=== PATIENT | male | born 1955 | race Caucasian/White ===

== ENCOUNTER 2017-08-22 09:33 | Emergency (ER) | payer MEDICARE, SELFPAY ==
[2017-08-22 09:39] VITALS: BP 170/103; PULSE 90; RESP 18; TEMP 36.5; O2SAT 95; BMI 34.4
--- NOTE | 2017-08-22 10:04 | DI.RAD.S_ITS ---
PROCEDURE: XR RIBS LT MIN 3V W CXR1V INDICATIONS: fall with rib pain TECHNIQUE: 2 views of the left ribs were acquired, along with a single view chest. COMPARISON: Chest 08/05/2017 FINDINGS: Surgical changes and devices: Left-sided port with tip overlying the distal SVC. Surgical plate lower cervical spine. Left humeral prosthesis. Possible aVR. Bones and chest wall: Subadjacent to a BB skin marker are slightly displaced fractures of the left sixth and seventh anterior ribs. No suspicious bony lesions. Overlying soft tissues appear unremarkable. Lungs and pleura: No pleural effusions or pneumothorax. There is an area of linear density at the right base that is unchanged, likely pulmonary scar. Horizontal atelectasis is present at the left base laterally. Mediastinum: Mediastinal contours appear normal. Heart size is normal. IMPRESSION: 1. Fractures left sixth and seventh anterior ribs. Underlying atelectasis. No pneumothorax. 2. Remote postoperative changes. 3. Probable pulmonary scar right lower lobe. Dictated by: Moi Hoffman M.D. on 08/22/2017 at 10:25 Approved by: Moi Hoffman M.D. on 08/22/2017 at 10:31
[2017-08-22] MEDS: HYDROMORPHONE 0.5 MG INJ 1 MG IV (11:08)
--- NOTE | 2017-08-22 11:20 | ED_ITS ---
HPI - Fall General Chief Complaint: Fall Stated Complaint: pt states i think i have a broken rib Time Seen by Provider: 08/22/17 09:44 Source: patient Mode of arrival: ambulatory Limitations: no limitations History of Present Illness HPI Narrative: Patient presents to the emergency department today with a chief complaint of ongoing left anterior chest pain after mechanical fall suffered on Tuesday when he tripped over his dog on wet grass. He denies any head, neck or back pain. He denies any shortness of breath or hemoptysis. He has had no nausea, vomiting or diarrhea MD complaint: fall Onset (ago): day(s) Fall from: standing Fall witnessed: no Place fall occurred: home Prolonged down time: no Symptoms prior to fall: none Related Data Home Medications Medication Instructions Recorded Confirmed fluticasone-vilanterol [Breo 1 puff INH QDAY #0 12/03/16 Ellipta] tamsulosin [Flomax] 0.4 mg PO QDAY #0 12/03/16 calcipotriene [Dovonex] 1 gm TOPICAL PRN #0 02/04/17 montelukast [Singulair] 10 mg PO HS #0 02/04/17 08/22/17 pregabalin [Lyrica] 225 mg PO BID #0 03/23/17 08/22/17 ipratropium-albuterol [Combivent 2 puff INH SEE INSTRUCTIONS #0 04/15/17 Respimat] albuterol sulfate 1.25 mg INH Q4HP PRN #0 05/24/17 08/22/17 bupropion HCl 300 mg PO QNOON 08/22/17 08/22/17 clopidogrel [Plavix] 75 mg PO QNOON 08/22/17 08/22/17 duloxetine [Cymbalta] 60 mg PO QNOON 08/22/17 08/22/17 eszopiclone [Lunesta] 3 mg PO QHS 08/22/17 08/22/17 fluticasone-vilanterol [Breo 1 puff INHALATION QDAY 08/22/17 08/22/17 Ellipta] lamotrigine [Lamictal XR Starter 200 mg PO QHS 08/22/17 08/22/17 (Green)] omeprazole 40 mg PO QNOON 08/22/17 08/22/17 Previous Rx's Medication Instructions Recorded cyanocobalamin (vitamin B-12) 1,000 mcg SQ QMONTH #30 vial 12/18/12 liothyronine [Cytomel] 12.5 mcg PO Q DAY #45 tab 09/20/16 albuterol sulfate [Ventolin HFA] 0 INH SEE INSTRUCTIONS #18 gm 01/03/17 atorvastatin [Lipitor] 10 mg PO HS #90 tab 01/31/17 prochlorperazine maleate 10 mg PO QIDP PRN #120 tab 02/04/17 aspirin 81 mg PO AMCC #30 tab 04/18/17 clonazepam 2 mg PO BID PRN #56 tab 05/06/17 metoprolol tartrate 25 mg PO Q12H #180 tab 05/30/17 sumatriptan [Imitrex] 20 mg INTRANASAL SEE INSTRUCTIONS 06/15/17 #90 dose sumatriptan succinate 6 mg SQ PRN PRN #10 ea 07/13/17 levothyroxine 0.1 mg PO QAM #90 tab 08/01/17 hydrocodone-acetaminophen 1 tab PO Q4-6H PRN #14 tab 08/22/17 Allergies Allergy/AdvReac Type Severity Reaction Status Date / Time doxycycline [DOXYCYCLINE] Allergy Mild ITCHING Verified 08/22/17 09:42 ketorolac [KETOROLAC] Allergy Unknown Verified 08/22/17 09:42 NSAIDS (Non-Steroidal AdvReac Unknown TO AVOID Verified 08/22/17 09:42 Anti-Inflamma R/T [NSAIDS (NON-STEROIDAL GASTRIC ANTI-INFLAMMA] BYPASS Review of Systems Review of Systems All systems reviewed & are unremarkable except as noted in HPI and below Constitutional Denies chills, Denies fever(s), Denies lethargy and Denies weakness ENT Ears, Nose, Mouth, and Throat: Denies change in voice, Denies neck pain and Denies sore throat Cardiovascular Denies chest pain, Denies irregular heart rhythm, Denies lightheadedness, Denies palpitations and Denies orthopnea Respiratory Reports pain on inspiration and Reports pain with cough Gastrointestinal Gastrointestinal: Denies abdominal pain, Denies change in bowel habits, Denies diarrhea, Denies nausea and Denies vomiting Musculoskeletal Denies neck pain Neurologic Denies weakness Endocrine Denies palpitations Exam Narrative Exam Narrative: Pleasant 62-year-old male in obvious distress, clutching his left anterior chest in pain Const General: cooperative and well developed Nutritional Appearance: well nourished Orientation: alert, awake, oriented x3 and not confused [facility] Head: normocephalic and atraumatic Ears: external ears normal and TM's normal bilaterally Nose: external nose normal and No nasal discharge Face and sinus: sinuses nontender, face symmetric, no sinus tenderness and No dry mucous membranes Mouth: oral mucosae normal and moist mucous membranes Teeth and gingiva: dentition normal Throat: tonsils normal and uvula midline Eyes General: appearance normal, both eyes and all related structures Eyelids: eyelids normal Conjunctivae: conjunctivae normal Sclera: sclerae normal Pupils: PERRL EOM: EOM intact bilaterally Neck Neck: normal visual inspection, trachea midline, No lymphadenopathy, No midline deformity and No JVD Lymphatic: No lymphedema Chest Chest: localized rib tenderness with anteroposterior compression Resp Effort & Inspection: normal respiratory effort, able to speak in complete sentences, no respiratory distress and no use of accessory muscles Auscultation: clear to auscultation bilaterally, no rales, no rhonchi and no wheezes Cardio Rate: regular rate Rhythm: regular rhythm Heart Sounds: no click, no gallops, no murmurs and no rubs Pulses: normal peripheral pulses PFSH Surgical History History of gastric bypass MDM - Fall Imaging Data Chest x-ray: Attestation: I personally reviewed and interpreted this imaging study as follows: My impression: 6th/7th rib fracture Radiologist's impression: PROCEDURE: XR RIBS LT MIN 3V W CXR1V INDICATIONS: fall with rib pain TECHNIQUE: 2 views of the left ribs were acquired, along with a single view chest. COMPARISON: Chest 08/05/2017 FINDINGS: Surgical changes and devices: Left-sided port with tip overlying the distal SVC. Surgical plate lower cervical spine. Left humeral prosthesis. Possible aVR. Bones and chest wall: Subadjacent to a BB skin marker are slightly displaced fractures of the left sixth and seventh anterior ribs. No suspicious bony lesions. Overlying soft tissues appear unremarkable. Lungs and pleura: No pleural effusions or pneumothorax. There is an area of linear density at the right base that is unchanged, likely pulmonary scar. Horizontal atelectasis is present at the left base laterally. Mediastinum: Mediastinal contours appear normal. Heart size is normal. IMPRESSION: 1. Fractures left sixth and seventh anterior ribs. Underlying atelectasis. No pneumothorax. 2. Remote postoperative changes. 3. Probable pulmonary scar right lower lobe. Dictated by: Moi Hoffman M.D. on 08/22/2017 at 10:25 Approved by: Moi Hoffman M.D. on 08/22/2017 at 10:31 Course Orders Ordered: ED Orders 08/22/17 10:04 XR ribs LT min 3V w CXR1V Stat Discontinued Medications Hydromorphone HCl (Dilaudid) 1 mg SUBCUT NOW PRN PRN Reason: Severe Pain Hydromorphone HCl (Dilaudid) 1 mg IV NOW ONE Stop: 08/22/17 11:01 Last Admin: 08/22/17 11:08 Dose: 1 mg Hydromorphone HCl (Dilaudid) 1 mg IV NOW ONE Stop: 08/22/17 11:16 Last Admin: 08/22/17 11:09 Dose: Last Vital Signs Temp 97.7 F 08/22/17 09:39 Pulse 90 08/22/17 09:39 Resp 18 08/22/17 09:39 BP 170/103 H 08/22/17 09:39 Pulse Ox 95 08/22/17 09:39 Discharge Plan Departure Patient Disposition: Home, Self-Care Clinical Impression: Fracture, ribs Instructions: DI for Rib Fracture Activity Restrictions/Additional Instructions: You have been prescribed narcotic medications. While on these medications you cannot drive or operate heavy machinery. Additionally you cannot sign legal documents or perform any duties such as this. 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 Please understand that we cannot provide further refills of narcotics or controlled substances through the ED and your pain management will need to be through your Primary Care Provider Prescriptions: New hydrocodone-acetaminophen 5-325 mg tablet 1 tab PO Q4-6H PRN (Reason: pain) Qty: 14 RF: 0 No Action cyanocobalamin (vitamin B-12) 1,000 MCG/1 ML solution 1,000 mcg SQ QMONTH Qty: 30 RF: 3 liothyronine [Cytomel] 25 MCG tablet 12.5 mcg PO Q DAY Qty: 45 RF: 3 tamsulosin [Flomax] 0.4 MG capsule,extended release 24hr 0.4 mg PO QDAY Qty: 0 RF: 0 fluticasone-vilanterol [Breo Ellipta] 200 MCG/25 MCG blister with device 1 puff INH QDAY Qty: 0 RF: 0 albuterol sulfate [Ventolin HFA] 90 MCG/PUFF HFA aerosol inhaler INH SEE INSTRUCTIONS Qty: 18 RF: 11 atorvastatin [Lipitor] 10 MG tablet 10 mg PO HS Qty: 90 RF: 3 montelukast [Singulair] 10 MG tablet 10 mg PO HS Qty: 0 RF: 0 calcipotriene [Dovonex] 0.005 % cream 1 gm Topical PRN (Reason: unknown) Qty: 0 RF: 0 prochlorperazine maleate 10 MG tablet 10 mg PO QIDP PRNQty: 120 RF: 0 pregabalin [Lyrica] 225 MG capsule 225 mg PO BID Qty: 0 RF: 0 ipratropium-albuterol [Combivent Respimat] 4 GM mist 2 puff INH SEE INSTRUCTIONS Qty: 0 RF: 0 aspirin 81 MG tablet,delayed release (DR/EC) 81 mg PO AMCC Qty: 30 RF: 0 clonazepam 2 MG tablet 2 mg PO BID PRNQty: 56 RF: 1 albuterol sulfate 1.25 MG/3 ML solution for nebulization 1.25 mg INH Q4HP PRN (Reason: Shortness Of Breath) Qty: 0 RF: 0 metoprolol tartrate 25 MG tablet 25 mg PO Q12H Qty: 180 RF: 3 sumatriptan [Imitrex] 20 MG spray,non-aerosol 20 mg Intranasal SEE INSTRUCTIONS Qty: 90 RF: 3 sumatriptan succinate 6 MG/0.5 ML pen injector 6 mg SQ PRN PRNQty: 10 RF: 3 levothyroxine 100 MCG tablet 0.1 mg PO QAM Qty: 90 RF: 3 clopidogrel [Plavix] 75 MG tablet 75 mg PO QNOON RF: 0 omeprazole 40 MG capsule,delayed release(DR/EC) 40 mg PO QNOON RF: 0 bupropion HCl 300 MG tablet extended release 24 hr 300 mg PO QNOON RF: 0 duloxetine [Cymbalta] 60 MG capsule,delayed release(DR/EC) 60 mg PO QNOON RF: 0 eszopiclone [Lunesta] 3 MG tablet 3 mg PO QHS RF: 0 lamotrigine [Lamictal XR Starter (Green)] 200 MG tablet extended rel,dose pack 200 mg PO QHS RF: 0 fluticasone-vilanterol [Breo Ellipta] 200-25 mcg/dose blister with device 1 puff Inhalation QDAY RF: 0
[2017-08-22 11:27] VITALS: BP 141/90; PULSE 90; RESP 18; O2SAT 97
== END 2017-08-22 11:28 | disposition home or self-care (01) ==
PROVIDERS: Emergency Provider Emergency Medicine; Family Provider Family Medicine; PCP Family Medicine
DX: S22.42XA Multiple fractures of ribs, left side, initial encounter for closed fracture (principal); W19.XXXA Unspecified fall, initial encounter
CPT/HCPCS: 71101; 96372; 96374; 99282; 99284; J1170

== ENCOUNTER → 2017-10-06 15:35 | Outpatient (CLI) | payer MEDICARE, SELFPAY ==
[2017-10-06 15:58] LABS: Add Manual Diff / Slide Review NO; Basophils Percent Auto 0.9 % (0-2); Eosinophils Percent Auto 1.1 % (2-4); Hematocrit 43.7 % (41-53); Hemoglobin 14.8 g/dL (13.5-17.5); Lymphocytes Percent Auto 24.7 % (25-40); Mean Corpuscular HGB Conc 33.9 % (30-36); Mean Corpuscular Hemoglobin 30.9 PG (26-34); Mean Corpuscular Volume 91.3 fL (80-100); Monocytes Percent Auto 9.4 % (3-14); Neutrophils Absolute Auto 3000 /uL (3000-5900); Neutrophils Percent Auto 63.9 % (50-75); Platelet Count 171 X10^3/uL (150-400); Red Blood Cell Count 4.79 X10^6/uL (4.5-5.9); Red Cell Distribution Width 13.9 % (11.6-14.8); White Blood Cell Count 4.7 X10^3/uL (4.5-11.0)
[2017-10-06 16:37] LABS: Alanine Aminotransferase 33 IU/L (21-72); Albumin 3.6 g/dL (3.5-5.0); Albumin Globulin Ratio 1.6 (1.0-2.8); Alkaline Phosphatase 81 U/L (38-126); Aspartate Aminotransferase 35 IU/L (17-59); BUN Creatinine Ratio 25.7 (6-22); Bilirubin Total 0.4 mg/dL (0.2-1.3); Blood Urea Nitrogen 18 mg/dL (9-20); Carbon Dioxide 29 mmol/L (22-32); Chloride 102 mmol/L (98-107); Estimated Glomerular Filt Rate > 60.0 mL/min (>60); Globulin 2.3 g/dL (1.7-4.1); Glucose 113 mg/dL (80-110); HEMOLYSIS 27 (0-50); Potassium 3.9 mmol/L (3.4-5.1); Sodium 140 mmol/L (137-145); Total Protein 5.9 g/dL (6.3-8.2)
[2017-10-06 16:52] LABS: Free T3, Triiodothyronine Free 3.75 pg/mL (2.77-5.27); Free T4, Direct Thyroxine 0.97 ng/dL (0.78-2.19)
== END ==
PROVIDERS: Visit Provider Internal Medicine
DX: G89.4 Chronic pain syndrome (principal); M54.5 Low back pain; G89.29 Other chronic pain; E03.9 Hypothyroidism, unspecified; I48.0 Paroxysmal atrial fibrillation
CPT/HCPCS: 36415; 80053; 84439; 84443; 84481; 85025

== ENCOUNTER 2017-10-22 11:58 | Emergency (ER) | payer MEDICARE, SELFPAY ==
[2017-10-22 12:45] VITALS: BP 165/92; PULSE 96; RESP 20; TEMP 36.7; O2SAT 98
--- NOTE | 2017-10-22 12:51 | ED.TRAUMA ---
HPI - Trauma <Nataly Dyson PA-C - Last Filed: 10/22/17 21:33> General Chief Complaint: Extremity Injury, Upper Stated Complaint: STATES CRACKED RIBS Time Seen by Provider: 10/22/17 12:50 Source: patient Mode of arrival: ambulatory Limitations: no limitations History of Present Illness HPI narrative: This 62-year-old male states that he bumped his left side on the corner of a wall 2 days ago. He states his arm was in at his side and thinks that pushed into his left side ribs where he has had fractures before. He has had gradually worsening rib pain since then. Hurts more with pressure, moving his left arm, cough or deep breath. He does not have new pain in the arm or shoulder. Patient reports that he is currently off all opioids and is anticipating back surgery next week. He initially was going to try oral medication and lidocaine patch, however was concerned that his insurance would not cover this, so requested injection to help with pain. Related Data Home Medications Medication Instructions Recorded Confirmed fluticasone-vilanterol [Breo 1 puff INH QDAY #0 12/03/16 10/06/17 Ellipta] tamsulosin [Flomax] 0.4 mg PO QDAY #0 12/03/16 10/06/17 calcipotriene [Dovonex] 1 gm TOPICAL PRN PRN #0 02/04/17 10/06/17 montelukast [Singulair] 10 mg PO HS #0 02/04/17 10/06/17 pregabalin [Lyrica] 225 mg PO BID #0 03/23/17 10/06/17 ipratropium-albuterol [Combivent 2 puff INH SEE INSTRUCTIONS #0 04/15/17 10/06/17 Respimat] albuterol sulfate 1.25 mg INH Q4HP PRN #0 05/24/17 10/06/17 albuterol sulfate [Ventolin HFA] 1 puff INH SEE INSTRUCTIONS 08/22/17 10/06/17 bupropion HCl 300 mg PO QNOON 08/22/17 10/06/17 clopidogrel [Plavix] 75 mg PO QNOON 08/22/17 10/06/17 duloxetine [Cymbalta] 60 mg PO QNOON 08/22/17 10/06/17 eszopiclone [Lunesta] 3 mg PO QHS 08/22/17 10/06/17 fluticasone-vilanterol [Breo 1 puff INHALATION QDAY 08/22/17 10/06/17 Ellipta] lamotrigine [Lamictal XR Starter 200 mg PO QHS 08/22/17 10/06/17 (Green)] prochlorperazine maleate 10 mg PO QIDP PRN 08/22/17 08/29/17 Previous Rx's Medication Instructions Recorded cyanocobalamin (vitamin B-12) 1,000 mcg SQ QMONTH #30 vial 12/18/12 atorvastatin [Lipitor] 10 mg PO HS #90 tab 01/31/17 aspirin 81 mg PO AMCC #30 tab 04/18/17 metoprolol tartrate 25 mg PO Q12H #180 tab 05/30/17 sumatriptan [Imitrex] 20 mg INTRANASAL SEE INSTRUCTIONS 06/15/17 #90 dose sumatriptan succinate 6 mg SQ PRN PRN #10 ea 07/13/17 levothyroxine 0.1 mg PO QAM #90 tab 08/01/17 hydrocodone-acetaminophen 1 tab PO Q4-6H PRN #14 tab 08/22/17 clonazepam 2 mg tablet 2 mg PO BID PRN #56 tab 08/23/17 hydrocodone 10 mg-acetaminophen 1 tab PO Q6H #20 tab 08/29/17 325 mg tablet liothyronine 25 mcg tablet 12.5 mcg PO Q DAY #45 tab 10/04/17 omeprazole 40 mg capsule,delayed 40 mg PO DAILY #90 cap 10/04/17 release lidocaine [Lidoderm] 3 patch TOP DAILY #15 each 10/22/17 oxycodone-acetaminophen [Endocet] 1 tab PO Q6H PRN #7 tab 10/22/17 Allergies Allergy/AdvReac Type Severity Reaction Status Date / Time doxycycline [DOXYCYCLINE] Allergy Mild ITCHING Verified 10/06/17 14:46 ketorolac [KETOROLAC] Allergy Unknown Verified 10/06/17 14:46 NSAIDS (Non-Steroidal AdvReac Unknown TO AVOID Verified 10/06/17 14:46 Anti-Inflamma R/T [NSAIDS (NON-STEROIDAL GASTRIC ANTI-INFLAMMA] BYPASS Review of Systems <Nataly Dyson PA-C - Last Filed: 10/22/17 21:33> Review of Systems All systems reviewed & are unremarkable except as noted in HPI and below Exam <Nataly Dyson PA-C - Last Filed: 10/22/17 21:33> Narrative Exam Narrative: GENERAL APPEARANCE: Patient sitting comfortably, in no distress. NECK/THYROID: Neck supple LUNGS: Clear to auscultation bilaterally, slight splinting. CHEST: TTP over L. mid anteriorlateral ribs, no TTP elsewhere. No eccymoses or abrasions HEART: Regular rate and rhythm without murmur, normal S1, S2, no S3 or S4. EXTREMITIES: No cyanosis or edema. No calf tenderness MS: No TTP over the L. shoulder or UE, able to abducted and rotate the shoulder with slightly reduced AROM Initial Vital Signs Initial Vital Signs: Vital Signs Temperature 98.1 F 10/22/17 12:45 Pulse Rate 96 H 10/22/17 12:45 Respiratory Rate 20 10/22/17 12:45 Blood Pressure 165/92 H 10/22/17 12:45 Pulse Oximetry 98 10/22/17 12:45 <Cali Todd DO - Last Filed: 10/23/17 07:25> Initial Vital Signs Initial Vital Signs: Vital Signs Temperature 98.1 F 10/22/17 12:45 Pulse Rate 96 H 10/22/17 12:45 Respiratory Rate 20 10/22/17 12:45 Blood Pressure 165/92 H 10/22/17 12:45 Pulse Oximetry 98 10/22/17 12:45 Course <Nataly Dyson PA-C - Last Filed: 10/22/17 21:33> Additional Information: Patient was feeling significantly improved at the time of discharge. Reviewed x-ray findings of old 6 than 7th rib fracture, indeterminate 5th rib fracture. I did give him a small amount of Endocet to have for the weekend also advised to use lidocaine patches. He is not having any dyspnea Orders Ordered: Discontinued Medications Hydromorphone HCl (Dilaudid) 2 mg SUBCUT NOW ONE Stop: 10/22/17 14:16 Last Admin: 10/22/17 14:28 Dose: Hydromorphone HCl (Dilaudid) 2 mg SUBCUT NOW ONE Stop: 10/22/17 14:27 Last Admin: 10/22/17 14:28 Dose: 2 mg Lidocaine (Lidoderm) 2 each TOP NOW ONE Stop: 10/22/17 13:24 Last Admin: 10/22/17 14:25 Dose: Not Given Oxycodone HCl ([place]) 10 mg PO NOW ONE Stop: 10/22/17 13:24 Last Admin: 10/22/17 14:25 Dose: Not Given Vital Signs - 8 hr 10/22/17 14:55 Pulse Rate 84 Respiratory Rate 16 Blood Pressure [Left Arm] 146/97 H Pulse Oximetry 96 <Cali Todd DO - Last Filed: 10/23/17 07:25> Orders Ordered: Discontinued Medications Hydromorphone HCl (Dilaudid) 2 mg SUBCUT NOW ONE Stop: 10/22/17 14:16 Last Admin: 10/22/17 14:28 Dose: Hydromorphone HCl (Dilaudid) 2 mg SUBCUT NOW ONE Stop: 10/22/17 14:27 Last Admin: 10/22/17 14:28 Dose: 2 mg Lidocaine (Lidoderm) 2 each TOP NOW ONE Stop: 10/22/17 13:24 Last Admin: 10/22/17 14:25 Dose: Not Given Oxycodone HCl (Percolone) 10 mg PO NOW ONE Stop: 10/22/17 13:24 Last Admin: 10/22/17 14:25 Dose: Not Given Vital Signs - 8 hr 10/22/17 14:55 Pulse Rate 84 Respiratory Rate 16 Blood Pressure [Left Arm] 146/97 H Pulse Oximetry 96 Discharge Plan Departure Patient Disposition: Home, Self-Care Clinical Impression: Left rib fracture Discharge Date/Time: 10/22/17 15:51 Interventions: ED Discharge Assessment Last Done: 10/22/17 15:47 Instructions: DI for Rib Fracture Activity Restrictions/Additional Instructions: It is not clear on your x-ray today whether you have a new fracture or the 5th rib, or if you have just contused old fractures that you had a long those ribs. You can take the prescription pain medicine as needed, but do not drive and remember it can make you sleepy. Please try the lidocaine patches, up to 3 at a time along the sore ribs to help with pain. If your insurance does not cover the prescription, you can get [id number] 4% lidocaine med patches made by multiple manufactures which are very similar. You should return if you have acutely worsening pain or new symptoms such as trouble breathing. Follow up with your PCP if you feel like you need to continue on pain medication Prescriptions: New oxycodone-acetaminophen [Endocet] 10-325 mg tablet 1 tab PO Q6H PRN (Reason: pain in ribs) Qty: 7 RF: 0 lidocaine [Lidoderm] 5 % adhesive patch,medicated 3 patch TOP DAILY Qty: 15 RF: 0 No Action cyanocobalamin (vitamin B-12) 1,000 MCG/1 ML solution 1,000 mcg SQ QMONTH Qty: 30 RF: 3 tamsulosin [Flomax] 0.4 MG capsule,extended release 24hr 0.4 mg PO QDAY Qty: 0 RF: 0 fluticasone-vilanterol [Breo Ellipta] 200 MCG/25 MCG blister with device 1 puff INH QDAY Qty: 0 RF: 0 atorvastatin [Lipitor] 10 MG tablet 10 mg PO HS Qty: 90 RF: 3 montelukast [Singulair] 10 MG tablet 10 mg PO HS Qty: 0 RF: 0 calcipotriene [Dovonex] 0.005 % cream 1 gm Topical PRN PRN (Reason: unknown) Qty: 0 RF: 0 pregabalin [Lyrica] 225 MG capsule 225 mg PO BID Qty: 0 RF: 0 ipratropium-albuterol [Combivent Respimat] 4 GM mist 2 puff INH SEE INSTRUCTIONS Qty: 0 RF: 0 aspirin 81 MG tablet,delayed release (DR/EC) 81 mg PO AMCC Qty: 30 RF: 0 albuterol sulfate 1.25 MG/3 ML solution for nebulization 1.25 mg INH Q4HP PRN (Reason: Shortness Of Breath) Qty: 0 RF: 0 metoprolol tartrate 25 MG tablet 25 mg PO Q12H Qty: 180 RF: 3 sumatriptan [Imitrex] 20 MG spray,non-aerosol 20 mg Intranasal SEE INSTRUCTIONS Qty: 90 RF: 3 sumatriptan succinate 6 MG/0.5 ML pen injector 6 mg SQ PRN PRNQty: 10 RF: 3 levothyroxine 100 MCG tablet 0.1 mg PO QAM Qty: 90 RF: 3 clonazepam 2 mg tablet 2 mg PO BID PRN (Reason: anxiety) Qty: 56 RF: 1 omeprazole 40 mg capsule,delayed release(DR/EC) 40 mg PO DAILY Qty: 90 RF: 0 liothyronine [Cytomel] 25 mcg tablet 12.5 mcg PO Q DAY Qty: 45 RF: 0 hydrocodone-acetaminophen [[place]] 10-325 mg tablet 1 tab PO Q6H Qty: 20 RF: 0 hydrocodone-acetaminophen 5-325 mg tablet 1 tab PO Q4-6H PRN (Reason: pain) Qty: 14 RF: 0 clopidogrel [Plavix] 75 MG tablet 75 mg PO QNOON RF: 0 bupropion HCl 300 MG tablet extended release 24 hr 300 mg PO QNOON RF: 0 duloxetine [Cymbalta] 60 MG capsule,delayed release(DR/EC) 60 mg PO QNOON RF: 0 eszopiclone [Lunesta] 3 MG tablet 3 mg PO QHS RF: 0 lamotrigine [Lamictal XR Starter (Green)] 200 MG tablet extended rel,dose pack 200 mg PO QHS RF: 0 fluticasone-vilanterol [Breo Ellipta] 200-25 mcg/dose blister with device 1 puff Inhalation QDAY RF: 0 albuterol sulfate [Ventolin HFA] 90 MCG/PUFF HFA aerosol inhaler 1 puff INH SEE INSTRUCTIONS RF: 0 prochlorperazine maleate 10 MG tablet 10 mg PO QIDP PRN (Reason: Nausea) RF: 0 Referrals: Eleazar Armstrong MD [Primary Care Provider] - <Cali Todd DO - Last Filed: 10/23/17 07:25> Cosign ED Attending Freda Attestation: I was available for consultation during this patient's emergency department encounter
--- NOTE | 2017-10-22 12:55 | DI.RAD.S_ITS ---
PROCEDURE: XR RIBS LT MIN 3V W CXR1V INDICATIONS: hx fx rib, now bumped chest 2.5 days ago/ pain TECHNIQUE: 2 views of the left ribs were acquired, along with a single view chest. COMPARISON: [facility], CR, XR RIBS LT MIN 3V W CXR1V, 08/22/2017, 9:44. FINDINGS: Surgical changes and devices: Left chest port with the tip projecting in the lower SVC. There is a left shoulder arthroplasty. Bones and chest wall: Left fifth, sixth and seventh rib fractures are seen. The left sixth and seventh rib fractures were visualized on prior study. Lungs and pleura: No pleural effusions or pneumothorax. Lungs appear clear. Mediastinum: Mediastinal contours appear normal. Heart size is normal. IMPRESSION: Redemonstration of left sixth and seventh rib fractures. Left fifth rib fracture is technically age-indeterminate and could be acute or subacute; recommend clinical correlation. Dictated by: Earnest Ferrari M.D. on 10/22/2017 at 13:36 Approved by: Earnest Ferrari M.D. on 10/22/2017 at 13:40
--- NOTE | 2017-10-22 13:26 | PC.NURSE ---
Pt had fractured ribs on left side 3.5 mos ago. He states this has resolved, but he fell against wall with his left arm breaking the impact and he has sudden onset of pain in the left rib area again. Pain with deep inspiration and movement. Denies any other symptoms. Denies chest pain or shortness of breath.
[2017-10-22] MEDS: HYDROMORPHONE 1 MG INJ 2 MG SUBCUT (14:28)
[2017-10-22 14:55] VITALS: BP 146/97; PULSE 84; RESP 16; O2SAT 96
== END 2017-10-22 15:51 | disposition home or self-care (01) ==
PROVIDERS: Emergency Provider Internal Medicine; Family Provider Internal Medicine; PCP Internal Medicine
DX: S22.32XA Fracture of one rib, left side, initial encounter for closed fracture (principal); W22.01XA Walked into wall, initial encounter
CPT/HCPCS: 71101; 96372; 99282; 99283; J1170

== ENCOUNTER 2017-12-12 14:24 | Emergency (ER) | payer MEDICARE, SELFPAY ==
[2017-12-12 14:29] VITALS: BP 142/88; PULSE 91; RESP 14; TEMP 36.6; O2SAT 97; BMI 36.0
--- NOTE | 2017-12-12 15:11 | ED.FALL ---
HPI - Fall <Nataly Dyson PA-C - Last Filed: 12/12/17 18:07> General Chief Complaint: Fall Stated Complaint: left hand laceration from a fall Time Seen by Provider: 12/12/17 14:37 Source: patient Mode of arrival: ambulatory Limitations: physical limitation History of Present Illness HPI Narrative: This 62-year-old male states that he tripped and fell on carpet at home and landed on his left elbow and upper arm. He states that he now has pain and reduced mobility in his left shoulder. 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 He states that he has pain in that shoulder with any pressure or injury to his elbow. He states that he cut his left hand, he believes on the edge of the dresser. He states that he maybe bumped his head a little bit on the carpet after he came down on the left side, but denies any LOC, denies any neck pain. No new weakness, paresthesia or other new complaints. He states that he falls frequently at home and is undergoing workup for various problems. He had initially been offered shoulder x-rays and declined these, thinking that he would need large doses of pain medication 1st (requested accessing his port to get ?2 mg of Dilaudid?), but does think that this is a low risk injury and that this is the same type of pain he has had in the past with hitting his elbow. Related Data Home Medications Medication Instructions Recorded Confirmed fluticasone-vilanterol [Breo 1 puff INH QDAY #0 12/03/16 11/14/17 Ellipta] tamsulosin [Flomax] 0.4 mg PO QDAY #0 12/03/16 11/14/17 calcipotriene [Dovonex] 1 gm TOPICAL PRN PRN #0 02/04/17 11/14/17 montelukast [Singulair] 10 mg PO HS #0 02/04/17 11/14/17 ipratropium-albuterol [Combivent 2 puff INH SEE INSTRUCTIONS #0 04/15/17 11/14/17 Respimat] albuterol sulfate 1.25 mg INH Q4HP PRN #0 05/24/17 11/14/17 albuterol sulfate [Ventolin HFA] 1 puff INH SEE INSTRUCTIONS 08/22/17 11/14/17 clopidogrel [Plavix] 75 mg PO QNOON 08/22/17 11/14/17 fluticasone-vilanterol [Breo 1 puff INHALATION QDAY 08/22/17 11/14/17 Ellipta] lamotrigine [Lamictal XR Starter 200 mg PO QHS 08/22/17 11/14/17 (Green)] Previous Rx's Medication Instructions Recorded cyanocobalamin (vitamin B-12) 1,000 mcg SQ QMONTH #30 vial 12/18/12 aspirin 81 mg PO AMCC #30 tab 04/18/17 metoprolol tartrate 25 mg PO Q12H #180 tab 05/30/17 sumatriptan [Imitrex] 20 mg INTRANASAL SEE INSTRUCTIONS 06/15/17 #90 dose sumatriptan succinate 6 mg SQ PRN PRN #10 ea 07/13/17 levothyroxine 0.1 mg PO QAM #90 tab 08/01/17 liothyronine 25 mcg tablet 12.5 mcg PO Q DAY #45 tab 10/04/17 omeprazole 40 mg capsule,delayed 40 mg PO DAILY #90 cap 10/04/17 release lidocaine [Lidoderm] 3 patch TOP DAILY #15 each 10/22/17 duloxetine 60 mg capsule,delayed 60 mg PO QNOON #90 cap 10/31/17 release cyclobenzaprine 10 mg tablet 10 mg PO TID PRN #30 tab 11/09/17 eszopiclone 3 mg tablet 3 mg PO QHS 90 Days #90 tab 11/09/17 bupropion HCl XL 300 mg 24 hr 300 mg PO ONCE #90 tab 11/18/17 tablet, extended release clonazepam 2 mg tablet 2 mg PO .COMPLEX 30 Days #225 tab 11/21/17 atorvastatin 10 mg tablet 10 mg PO HS #90 tab 12/07/17 prochlorperazine maleate 10 mg 10 mg PO Q6H PRN #120 tab 12/13/17 tablet Allergies Allergy/AdvReac Type Severity Reaction Status Date / Time doxycycline [DOXYCYCLINE] Allergy Mild ITCHING Verified 12/12/17 14:32 ketorolac [KETOROLAC] Allergy Unknown Verified 12/12/17 14:32 NSAIDS (Non-Steroidal AdvReac Unknown TO AVOID Verified 12/12/17 14:32 Anti-Inflamma R/T [NSAIDS (NON-STEROIDAL GASTRIC ANTI-INFLAMMA] BYPASS Review of Systems <Nataly Dyson PA-C - Last Filed: 12/12/17 18:07> Review of Systems All systems reviewed & are unremarkable except as noted in HPI and below Exam <Nataly Dyson PA-C - Last Filed: 12/12/17 18:07> Narrative Exam Narrative: GENERAL APPEARANCE: Patient resting comfortably, in no distress. LUNGS: Clear to auscultation bilaterally. HEART: Rate and rhythm regular without murmur, normal S1 and S2, no S3 or S4. EXTREMITIES: Upper extremities no cyanosis or edema DERMATOLOGIC: Ecchymoses in various stages of healing on the trunk and the extremities. Left palm there is a 3.5 cm partial avulsion laceration that is partly adhered on both sides. Distal portion is deeper, 3-4 mm, subcu fat visible but not protruding. More proximal portion is 1 mm deep. Skin appears viable. Skin in the center of the avulsions is 4mm diameter NEUROVASCULAR: Left upper extremity sensation is grossly intact, hand is warm and pink with brisk cap refill MUSCULOSKELETAL: He has a little bit of tenderness over the lateral shoulder and lateral caudal border of the left humerus, no tenderness elsewhere over the shoulder, abduction and range of motion of the left shoulder are limited. Normal range of motion of the elbow and wrist. [employer] strength in the left hand 5/5 Initial Vital Signs Initial Vital Signs: Vital Signs Temperature 97.8 F 12/12/17 14:29 Pulse Rate 91 H 12/12/17 14:29 Respiratory Rate 14 12/12/17 14:29 Blood Pressure 142/88 H 12/12/17 14:29 Pulse Oximetry 97 12/12/17 14:29 <Lyubov Beavers DO - Last Filed: 12/15/17 12:35> Initial Vital Signs Initial Vital Signs: Vital Signs Temperature 97.8 F 12/12/17 14:29 Pulse Rate 91 H 12/12/17 14:29 Respiratory Rate 14 12/12/17 14:29 Blood Pressure 142/88 H 12/12/17 14:29 Pulse Oximetry 97 12/12/17 14:29 Course <Nataly Dyson PA-C - Last Filed: 12/12/17 18:07> Additional Information: Patient's wound was not amenable to suturing due to parallel linear partial avulsions with viable skin in between (explained we would have had to remove the viable skin to be able to suture properly). This was closed with Steri-Strips, covered with Gelfoam and a bulky dressing. We did not give any IV or injectable medications but did give his usual dose of oxycodone while here and he had considerable improvement in his shoulder pain and range of motion. He agreed to return if any acutely worsening symptoms. He did not feel that x-rays were needed given this was a low risk fall onto carpet. He will follow up with his PCP Orders Ordered: Discontinued Medications Acetaminophen (Tylenol) 650 mg PO NOW ONE Stop: 12/12/17 15:56 Last Admin: 12/12/17 15:57 Dose: 650 mg Lidocaine (Lidoderm) 1 each TOP NOW ONE Stop: 12/12/17 15:29 Last Admin: 12/12/17 15:36 Dose: 1 each Lidocaine (Lidoderm) 1 each TOP NOW ONE Stop: 12/12/17 16:51 Last Admin: 12/12/17 16:59 Dose: 1 each Oxycodone HCl (Percolone) 20 mg PO NOW ONE Stop: 12/12/17 15:29 Last Admin: 12/12/17 15:56 Dose: 20 mg Vital Signs - 8 hr 12/12/17 14:29 12/12/17 16:53 Temperature 97.8 F 98.5 F Pulse Rate 91 H 80 Respiratory Rate 14 17 Blood Pressure 142/88 H Blood Pressure [Left Arm] 122/78 Pulse Oximetry 97 93 <Lyubov Beavers, DO - Last Filed: 12/15/17 12:35> Orders Ordered: Discontinued Medications Acetaminophen (Tylenol) 650 mg PO NOW ONE Stop: 12/12/17 15:56 Last Admin: 12/12/17 15:57 Dose: 650 mg Lidocaine (Lidoderm) 1 each TOP NOW ONE Stop: 12/12/17 15:29 Last Admin: 12/12/17 15:36 Dose: 1 each Lidocaine (Lidoderm) 1 each TOP NOW ONE Stop: 12/12/17 16:51 Last Admin: 12/12/17 16:59 Dose: 1 each Oxycodone HCl (Percolone) 20 mg PO NOW ONE Stop: 12/12/17 15:29 Last Admin: 12/12/17 15:56 Dose: 20 mg Vital Signs - 8 hr 12/12/17 14:29 12/12/17 16:53 Temperature 97.8 F 98.5 F Pulse Rate 91 H 80 Respiratory Rate 14 17 Blood Pressure 142/88 H Blood Pressure [Left Arm] 122/78 Pulse Oximetry 97 93 Discharge Plan Departure Patient Disposition: Home Clinical Impression: Contusion of left shoulder or upper extremity, Avulsion of skin of hand Discharge Date/Time: 12/12/17 17:04 Interventions: ED Discharge Assessment Last Done: 12/12/17 17:03 Instructions: DI for Avulsion Laceration (Not Requiring Sutures) Activity Restrictions/Additional Instructions: Since you are feeling better it is okay to return home and monitor. Continue using your Lidoderm patches. We were not able to suture your hand today due to the skin being partly torn or avulsed in 2 places, but the skin in the middle of that looking okay, so we have tapes this and applied pressure dressing. Please leave this on for the next 24-48 hours and leave the tape strips on until they fall off. Please keep a bandage on this to avoid re-injuring it or causing more bleeding. Monitor for signs of infection. You should return if you have any new or acutely worsening symptoms. Otherwise, please follow-up for recheck with your PCP in the next few days to reassess and make sure no further evaluation is needed Prescriptions: No Action clonazepam 2 mg tablet 2 mg PO .COMPLEX 30 Days Qty: 225 RF: 0 cyanocobalamin (vitamin B-12) 1,000 MCG/1 ML solution 1,000 mcg SQ QMONTH Qty: 30 RF: 3 tamsulosin [Flomax] 0.4 MG capsule,extended release 24hr 0.4 mg PO QDAY Qty: 0 RF: 0 fluticasone-vilanterol [Breo Ellipta] 200 MCG/25 MCG blister with device 1 puff INH QDAY Qty: 0 RF: 0 montelukast [Singulair] 10 MG tablet 10 mg PO HS Qty: 0 RF: 0 calcipotriene [Dovonex] 0.005 % cream 1 gm Topical PRN PRN (Reason: unknown) Qty: 0 RF: 0 ipratropium-albuterol [Combivent Respimat] 4 GM mist 2 puff INH SEE INSTRUCTIONS Qty: 0 RF: 0 aspirin 81 MG tablet,delayed release (DR/EC) 81 mg PO AMCC Qty: 30 RF: 0 albuterol sulfate 1.25 MG/3 ML solution for nebulization 1.25 mg INH Q4HP PRN (Reason: Shortness Of Breath) Qty: 0 RF: 0 metoprolol tartrate 25 MG tablet 25 mg PO Q12H Qty: 180 RF: 3 sumatriptan [Imitrex] 20 MG spray,non-aerosol 20 mg Intranasal SEE INSTRUCTIONS Qty: 90 RF: 3 sumatriptan succinate 6 MG/0.5 ML pen injector 6 mg SQ PRN PRNQty: 10 RF: 3 levothyroxine 100 MCG tablet 0.1 mg PO QAM Qty: 90 RF: 3 omeprazole 40 mg capsule,delayed release(DR/EC) 40 mg PO DAILY Qty: 90 RF: 0 liothyronine [Cytomel] 25 mcg tablet 12.5 mcg PO Q DAY Qty: 45 RF: 0 duloxetine [Cymbalta] 60 mg capsule,delayed release(DR/EC) 60 mg PO QNOON Qty: 90 RF: 1 cyclobenzaprine 10 mg tablet 10 mg PO TID PRN (Reason: muscle spasm) Qty: 30 RF: 0 bupropion HCl 300 mg tablet extended release 24 hr 300 mg PO ONCE Qty: 90 RF: 0 atorvastatin [Lipitor] 10 mg tablet 10 mg PO HS Qty: 90 RF: 3 prochlorperazine maleate 10 mg tablet 10 mg PO Q6H PRN (Reason: Nausea) Qty: 120 RF: 0 clopidogrel [Plavix] 75 MG tablet 75 mg PO QNOON RF: 0 lamotrigine [Lamictal XR Starter (Green)] 200 MG tablet extended rel,dose pack 200 mg PO QHS RF: 0 fluticasone-vilanterol [Breo Ellipta] 200-25 mcg/dose blister with device 1 puff Inhalation QDAY RF: 0 albuterol sulfate [Ventolin HFA] 90 MCG/PUFF HFA aerosol inhaler 1 puff INH SEE INSTRUCTIONS RF: 0 lidocaine [Lidoderm] 5 % adhesive patch,medicated 3 patch TOP DAILY Qty: 15 RF: 0 eszopiclone [Lunesta] 3 mg tablet 3 mg PO QHS 90 Days Qty: 90 RF: 0 Referrals: Eleazar Armstrong MD [Primary Care Provider] - <Lyubov Beavers DO - Last Filed: 12/15/17 12:35> Cosign ED Attending Cosignature Attestation: I was immediately available in the department for consultation. This documentation has been reviewed and I agree with assessment and plan. Supervised by Lyubov Beavers DO
[2017-12-12] MEDS: LIDOCAINE PATCH 1 EACH ADH..PATCH TOP ×2 (15:36→16:59)
[2017-12-12] MEDS: OXYCODONE IR 5 MG TABLET 20 MG PO (15:56)
[2017-12-12] MEDS: ACETAMINOPHEN 325 MG TABLET 650 MG PO (15:57)
[2017-12-12 16:53] VITALS: BP 122/78; PULSE 80; RESP 17; TEMP 36.9; O2SAT 93
--- NOTE | 2017-12-12 17:01 | PC.NURSE ---
rewrapped pt's left hand with the addition of gel foam, over steristrips. 4x4, bulky dressing. per [facility] Ingram. tolerated well.
== END 2017-12-12 17:04 | disposition home or self-care (01) ==
PROVIDERS: Emergency Provider Internal Medicine; Family Provider Internal Medicine; PCP Internal Medicine
DX: S61.402A Unspecified open wound of left hand, initial encounter (principal); S40.012A Contusion of left shoulder, initial encounter; W01.0XXA Fall on same level from slipping, tripping and stumbling without subsequent striking against object, initial encounter
CPT/HCPCS: 99283

== ENCOUNTER → 2017-12-15 14:32 | Outpatient (CLI) | payer MEDICARE, SELFPAY | PROVIDERS: Family Provider Internal Medicine; PCP Internal Medicine; Visit Provider Physician Assistant | DX: S61.412A Laceration without foreign body of left hand, initial encounter (principal) | CPT/HCPCS: 87070; 87075; 87077; 87147; 87186; 87205 ==

== ENCOUNTER → 2017-12-21 15:34 | Outpatient (CLI) | payer MEDICARE, SELFPAY ==
[2017-12-21 16:22] LABS: Add Manual Diff / Slide Review NO; Basophils Percent Auto 0.5 % (0-2); Eosinophils Percent Auto 0.7 % (2-4); Hemoglobin 16.7 g/dL (13.5-17.5); Lymphocytes Percent Auto 20.4 % (25-40); Mean Corpuscular Hemoglobin 30.6 PG (26-34); Mean Corpuscular Volume 89.9 fL (80-100); Monocytes Percent Auto 9.7 % (3-14); Neutrophils Absolute Auto 4800 /uL (3000-5900); Neutrophils Percent Auto 68.7 % (50-75); Platelet Count 209 X10^3/uL (150-400); Red Blood Cell Count 5.45 X10^6/uL (4.5-5.9); Red Cell Distribution Width 14.9 % (11.6-14.8); White Blood Cell Count 6.9 X10^3/uL (4.5-11.0)
[2017-12-21 17:00] LABS: Alanine Aminotransferase 53 IU/L (21-72); Albumin 4.7 g/dL (3.5-5.0); Alkaline Phosphatase 116 U/L (38-126); Aspartate Aminotransferase 42 IU/L (17-59); Bilirubin Total 0.4 mg/dL (0.2-1.3); Blood Urea Nitrogen 20 mg/dL (9-20); Calcium 10.1 mg/dL (8.4-10.2); Carbon Dioxide 27 mmol/L (22-32); Chloride 105 mmol/L (98-107); Estimated Glomerular Filt Rate > 60.0 mL/min (>60); Globulin 2.4 g/dL (1.7-4.1); Glucose 96 mg/dL (80-110); HEMOLYSIS < 15 (0-50); Potassium 5.3 mmol/L (3.4-5.1); Sodium 145 mmol/L (137-145); Total Protein 7.1 g/dL (6.3-8.2)
[2017-12-21 17:29] LABS: Thyroid Stimulating Hormone 0.02 uIU/mL (0.47-4.68)
== END ==
PROVIDERS: Family Provider Internal Medicine; PCP Internal Medicine; Visit Provider Psychiatry & Neurology Psychiatry
DX: F33.2 Major depressive disorder, recurrent severe without psychotic features (principal)
CPT/HCPCS: 36415; 80053; 84443; 85025

== ENCOUNTER 2018-02-21 08:42 | Emergency (ER) | payer MEDICARE, SELFPAY ==
[2018-02-21 09:08] VITALS: BP 175/94; PULSE 94; RESP 18; TEMP 36.6; O2SAT 99
--- NOTE | 2018-02-21 09:23 | ED_ITS ---
HPI - Abdominal Pain General Chief Complaint: Abdominal Pain Stated Complaint: abd pain Time Seen by Provider: 02/21/18 09:09 Source: patient and old records reviewed Mode of arrival: ambulatory Limitations: no limitations History of Present Illness HPI narrative: Patient is a 63-year-old male who presents with right sided upper quadrant abdominal pain and right-sided rib pain. He says it hurts every time he breathes or moves. It has been ongoing for a number of weeks. It is not any worse today than he was instructed to see his doctor about it. He has not had nausea vomiting no productive cough. He has had left-sided rib fractures in the past. He denies any fall or injury though he does suffer from memory problems. MD complaint: abdominal pain Onset (ago): week(s) Pain Consistency: intermittent Location: RUQ Severity: mild Radiation: none Migration to: no migration Relieving factors: nothing Exacerbating factors: movement Related Data Home Medications Medication Instructions Recorded Confirmed fluticasone-vilanterol [Breo 1 puff INH QDAY #0 12/03/16 02/21/18 Ellipta] calcipotriene [Dovonex] 1 gm TOPICAL BID #0 02/04/17 02/21/18 montelukast [Singulair] 10 mg PO BEDTIME #0 02/04/17 02/21/18 ipratropium-albuterol [Combivent See Label Instructions .ROUTE 04/15/17 02/21/18 Respimat] .COMPLEX #0 MDD 6 albuterol sulfate 1.25 mg INH Q4HP PRN #0 05/24/17 02/21/18 albuterol sulfate [Ventolin HFA] 1 puff INH SEE INSTRUCTIONS 08/22/17 02/21/18 lamotrigine [Lamictal XR Starter 200 mg PO SUMOWETHFRSA 08/22/17 02/21/18 (Green)] apixaban 5 mg tablet 5 mg PO BID 01/12/18 02/21/18 Vitamin B-12 1 tab PO DAILY 02/21/18 02/21/18 alprazolam [Xanax] 1 mg PO .ONCE 02/21/18 02/21/18 atorvastatin [Lipitor] 10 mg PO BEDTIME 02/21/18 02/21/18 bupropion HCl 300 mg PO QNOON 02/21/18 02/21/18 calcium carbonate 1,000 mg PO DAILY 02/21/18 02/21/18 clobetasol 1 applic TOPICAL SUSA 02/21/18 02/21/18 clonazepam 1 mg PO QNOON 02/21/18 02/21/18 clonazepam 2 mg PO BID 02/21/18 02/21/18 desonide 1 applic TOPICAL PRN PRN 02/21/18 02/21/18 eszopiclone 3 mg PO BEDTIME 02/21/18 02/21/18 ketoconazole 1 applic TOPICAL DAILY PRN 02/21/18 02/21/18 levothyroxine 100 mcg PO QAM 02/21/18 02/21/18 liothyronine [Cytomel] 12.5 mcg PO DAILY 02/21/18 02/21/18 metoprolol tartrate 25 mg PO BID 02/21/18 02/21/18 multivitamin 1 tab PO DAILY 02/21/18 02/21/18 nortriptyline 10 mg PO BEDTIME 02/21/18 02/21/18 omeprazole 40 mg PO QNOON 02/21/18 02/21/18 rizatriptan See Label Instructions .ROUTE 02/21/18 02/21/18 .COMPLEX sumatriptan succinate 6 mg SQ PRN PRN MDD 2 02/21/18 02/21/18 tamsulosin [Flomax] 0.4 mg PO QNOON 02/21/18 02/21/18 Previous Rx's Medication Instructions Recorded sumatriptan [Imitrex] 20 mg INTRANASAL SEE INSTRUCTIONS 06/15/17 #90 dose prochlorperazine maleate 10 mg 10 mg PO Q6H PRN #120 tab 12/13/17 tablet cyclobenzaprine 10 mg tablet 10 mg PO TID PRN #30 tab 01/09/18 lidocaine 5 % topical patch 1 patch TOP .COMPLEX #15 each 01/17/18 duloxetine 60 mg capsule,delayed 60 mg PO QNOON #90 cap 02/10/18 release Allergies Allergy/AdvReac Type Severity Reaction Status Date / Time doxycycline [DOXYCYCLINE] Allergy Mild ITCHING Verified 01/17/18 13:37 ketorolac [KETOROLAC] Allergy Unknown Verified 01/17/18 13:37 NSAIDS (Non-Steroidal AdvReac Unknown TO AVOID Verified 01/17/18 13:37 Anti-Inflamma R/T [NSAIDS (NON-STEROIDAL GASTRIC ANTI-INFLAMMA] BYPASS Review of Systems Review of Systems All systems reviewed & are unremarkable except as noted in HPI and below Constitutional Denies chills, Denies fever(s), Denies lethargy and Denies weakness Eyes Denies change in vision, Denies eye discharge, Denies irritation and Denies loss of vision Cardiovascular Denies chest pain, Denies irregular heart rhythm, Denies lightheadedness, Denies palpitations, Denies dyspnea, Denies dyspnea on exertion and Denies orthopnea Respiratory Denies cough, Denies hemoptysis, Denies excessive phlegm production, Reports pain on inspiration, Reports pain with cough, Denies dyspnea, Denies dyspnea on exertion and Denies wheezing Gastrointestinal Gastrointestinal: Reports as per HPI, Denies heartburn, Denies nausea and Denies vomiting Musculoskeletal Reports back pain (Chronic laminectomy), Denies muscle cramps and Denies muscle weakness Comments: Rib pain Integumentary/Breasts Denies pruritus, Denies erythema, Denies rash and Denies wounds Neurologic Denies loss of vision and Denies weakness Endocrine Denies palpitations Allergic/Immunologic Denies wheezing [facility] Medical History Organic sleep apnea, unspecified (Chronic) Hypersomnia (Chronic) Anxiety (Chronic) Paroxysmal atrial fibrillation (Chronic) Chronic pain syndrome (Chronic 11/08/16) Hypothyroidism (Chronic) Post traumatic stress disorder (PTSD) (Chronic) Sleep apnea (Chronic) Cognitive disorder (Chronic 04/24/14) Obesity with body mass index (BMI) of 30.0 to 39.9 (Chronic 12/06/14) Other iron deficiency anemia (Chronic 02/03/15) Chronic left shoulder pain (Chronic 01/20/16) Narcotic dependence (Chronic 09/01/16) Chronic obstructive pulmonary disease (Chronic 08/05/17) H/O renal calculi (Inactive) H/O migraine (Inactive) Sarcoidosis (Chronic) Psoriasis (Chronic) Iron deficiency (Chronic) 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) Vitamin B12 deficiency (Chronic 02/19/11) History of stroke (Inactive) Patent foramen ovale (Resolved) Pneumonia (Resolved) Surgical History History of Cris-en-Y gastric bypass (Inactive ~2003) History of gastric bypass (Inactive ~2003) History of total shoulder replacement (Inactive ~12/2015) S/P lumbar laminectomy (Inactive ~10/2017) Family History Father No problems noted. Mother No problems noted. 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 yeimy/episcopalian: Gnosticist travel history: over 6 months ago and other Smoking Status: Former smoker Tobacco: How many years used: 10 Smokeless tobacco user: other quit status: quit date established second hand exposure: Yes (Childhood) alcohol intake: current substance use type: does not use Exam Initial Vital Signs Initial Vital Signs: Vital Signs Temperature 98 F 02/21/18 09:08 Pulse Rate 94 H 02/21/18 09:08 Respiratory Rate 18 02/21/18 09:08 Blood Pressure 175/94 H 02/21/18 09:08 Pulse Oximetry 99 02/21/18 09:08 GENERAL: Well-appearing, well-nourished and in no acute distress. HEENT: Head atraumatic,EOMI, pupils reactive, neck is supple no JVD CARDIOVASCULAR: Regular rate and rhythm without murmurs, rubs or gallops. RESPIRATORY: Breath sounds equal bilaterally, no wheezes rales or rhonchi. No rib tenderness no movement and inspiration reproduce pain ABDOMEN: Soft, mild right upper quadrant pain without guarding or rebound. : No CVA tenderness EXTREMITIES: Normal range of motion, no clubbing or edema. Neurovascularly intact NEUROLOGICAL: Alert and oriented x4.Normal gait and speech. Cranial nerves II through XII grossly intact. SKIN: Warm, dry, no laceration, no petechiae, no rashes or lesions. Course Orders Ordered: ED Orders 02/21/18 09:05 Complete Blood Count AUTO DIFF Stat Comprehensive Metabolic Panel Stat Lipase Stat 02/21/18 09:23 US abdomen complete Stat XR ribs RT min 3V w CXR1V Stat Discontinued Medications Acetaminophen (Tylenol) 650 mg PO NOW ONE Stop: 02/21/18 09:24 Last Admin: 02/21/18 09:47 Dose: 650 mg Vital Signs - 8 hr 02/21/18 09:08 Temperature 98 F Pulse Rate 94 H Respiratory Rate 18 Blood Pressure 175/94 H Pulse Oximetry 99 MDM - Abdominal Pain Lab Data Attestation: I reviewed the patient's lab results. Result diagrams: 02/21/18 09:05 02/21/18 09:05 Lab Results 02/21/18 02/21/18 Range/Units 09:05 09:05 WBC 7.5 (4.5-11.0) X10^3/uL RBC 5.28 (4.5-5.9) X10^6/uL Hgb 16.4 (13.5-17.5) g/dL Hct 48.5 (41-53) % MCV 91.9 (80-100) fL MCH 31.1 (26-34) PG MCHC 33.9 (30-36) % RDW 14.8 (11.6-14.8) % Plt Count 178 (150-400) X10^3/uL Neut % (Auto) 70.3 (50-75) % Lymph % (Auto) 20.7 L (25-40) % [place] % (Auto) 8.1 (3-14) % Eos % (Auto) 0.5 L (2-4) % Baso % (Auto) 0.4 (0-2) % Neut # (Auto) 5300 (5433-6399) /uL Sodium 141 (137-145) mmol/L Potassium 4.0 (3.4-5.1) mmol/L Chloride 101 (98-107) mmol/L Carbon Dioxide 31 (22-32) mmol/L BUN 19 (9-20) mg/dL Creatinine 1.00 (0.66-1.25) mg/dL Estimated GFR > 60.0 (>60) mL/min BUN/Creatinine Ratio 19.0 (6-22) Glucose 91 (80-110) mg/dL Calcium 9.5 (8.4-10.2) mg/dL Total Bilirubin 0.6 (0.2-1.3) mg/dL AST 30 (17-59) IU/L ALT 43 (21-72) IU/L Alkaline Phosphatase 98 (38-126) U/L Total Protein 6.8 (6.3-8.2) g/dL Albumin 4.3 (3.5-5.0) g/dL Globulin 2.5 (1.7-4.1) g/dL Albumin/Globulin Ratio 1.7 (1.0-2.8) Lipase 150 (23-300) U/L Imaging Data Right rib x-ray: Radiologist's impression: PROCEDURE: XR RIBS RT MIN 3V W CXR 1V INDICATIONS: pain TECHNIQUE: 3 views of the right ribs were acquired, along with a single view chest. COMPARISON: [facility], CR, XR RIBS LT MIN 3V W CXR1V, 10/22/2017, 12:41. FINDINGS: Surgical changes and devices: Left shoulder arthroplasty and left chest wall Port-A-Cath are stable. Possible leak this cardiac pacer is stable. Bones and chest wall: No fractures or dislocations. No suspicious bony lesions. Overlying soft tissues appear unremarkable. Lungs and pleura: No pleural effusions or pneumothorax. Lungs appear clear. Mediastinum: Mediastinal contours appear normal. Heart size is normal. IMPRESSION: No displaced right rib fractures. Dictated by: Beckie Pelayo MD, PhD on 02/21/2018 at 9:46 Approved by: Beckie Pelayo MD, PhD on 02/21/2018 at 9:48 US - abdomen: Radiologist's impression: PROCEDURE: US ABDOMEN COMPLETE INDICATIONS: RUQ pain TECHNIQUE: Real-time scanning was performed of the abdominal and retroperitoneal organs, with image documentation. COMPARISON: [facility], CT, IVP (ABD & PEL WWO CONTRAST), 04/21/2016, 14: 09. [facility], US, ABDOMEN COMPLETE, 08/03/2015, 17:13. FINDINGS: Liver: The visualized liver is normal in size and homogeneous in echotexture. The left lobe of the liver is not well-seen, secondary to overlying bowel gas. Gallbladder: No findings of gallstones or sludge are seen. The gallbladder wall is not thickened, measuring 3 mm or less. No specific pericholecystic fluid is seen. The sonographic Alvarado sign is negative. Biliary ducts: Intrahepatic bile ducts are non-dilated. Extrahepatic bile duct caliber measures 6 mm. Normal is 6-7 mm or less in diameter, or 10 mm or less post-cholecystectomy. Pancreas: Not seen, obscured by overlying bowel gas. Spleen: Spleen is normal in size and homogeneous in echotexture. Kidneys: Kidneys are normal in size and echotexture. Right kidney measures 11.9 cm long; left kidney measures 11.5 cm long. No hydronephrosis is seen. There is an apparent 1.2 cm stone involving the left mid kidney. At the superior pole the right kidney there is a 3 x 3.1 x 3.8 cm cyst. No solid masses. Aorta: Visualized aorta is normal in caliber at less than 3 cm. Iliacs: Not seen, obscured by overlying bowel gas. IVC: Not seen, obscured by overlying bowel gas. Miscellaneous: No free abdominal fluid. IMPRESSION: The gallbladder demonstrates a normal sonographic appearance. No biliary dilatation is seen. An apparent 1.2 cm nonobstructing left kidney stone is seen. However, no stone can be seen at this site on the CT dated 04/21/16. 3.8 cm simple appearing right renal cyst is seen. Dictated by: Dayne Desai M.D. on 02/21/2018 at 9:25 MDM Narrative Medical decision making narrative: Patient has normal blood work reassuring ultrasound and rib x-ray. And has been ongoing for a month and a half. He is in sinus rhythm on the monitor. It is worse with movement seems to be musculoskeletal. He has appointment with his primary in 2 days. He is requesting more pain medication. His this time he is offered Tylenol only based on records. If he is requesting more medication I recommended he discuss this with his primary physician. Discharge Plan Departure Patient Disposition: Home Clinical Impression: Acute costochondritis Discharge Date/Time: 02/21/18 10:50 Interventions: ED Discharge Assessment Last Done: 02/21/18 10:50 Instructions: Costochondritis Activity Restrictions/Additional Instructions: *You have been diagnosed with costochondritis *What to do: This is likely a rib sprain, gallbladder and x-ray blood work within normal limits. If you should need more pain medicine it pleases discussed so with your primary care provider *Continue to take medications as directed *Follow up with your primary care provider in 2-3 days *Return to ER if you should have any new, worsening or concerning symptoms Prescriptions: No Action apixaban [Eliquis] 5 mg tablet 5 mg PO BID RF: 0 fluticasone-vilanterol [Breo Ellipta] 200 MCG/25 MCG blister with device 1 puff INH QDAY Qty: 0 RF: 0 montelukast [Singulair] 10 MG tablet 10 mg PO BEDTIME Qty: 0 RF: 0 calcipotriene [Dovonex] 0.005 % cream 1 gm Topical BID Qty: 0 RF: 0 ipratropium-albuterol [Combivent Respimat] 4 GM mist See Label Instructions .ROUTE .COMPLEX MDD 6 Qty: 0 RF: 0 albuterol sulfate 1.25 MG/3 ML solution for nebulization 1.25 mg INH Q4HP PRN (Reason: Shortness Of Breath) Qty: 0 RF: 0 sumatriptan [Imitrex] 20 MG spray,non-aerosol 20 mg Intranasal SEE INSTRUCTIONS Qty: 90 RF: 3 prochlorperazine maleate 10 mg tablet 10 mg PO Q6H PRN (Reason: Nausea) Qty: 120 RF: 0 cyclobenzaprine 10 mg tablet 10 mg PO TID PRN (Reason: muscle spasm) Qty: 30 RF: 0 duloxetine [Cymbalta] 60 mg capsule,delayed release(DR/EC) 60 mg PO QNOON Qty: 90 RF: 1 lidocaine [Lidoderm] 5 % adhesive patch,medicated 1 patch TOP .COMPLEX Qty: 15 RF: 3 lamotrigine [Lamictal XR Starter (Green)] 200 MG tablet extended rel,dose pack 200 mg PO RF: 0 albuterol sulfate [Ventolin HFA] 90 MCG/PUFF HFA aerosol inhaler 1 puff INH SEE INSTRUCTIONS RF: 0 clonazepam 2 mg tablet 1 mg PO QNOON RF: 0 eszopiclone 3 mg tablet 3 mg PO BEDTIME RF: 0 desonide 0.05 % cream 1 applic Topical PRN PRN (Reason: Inflammation) RF: 0 ketoconazole 2 % shampoo 1 applic Topical DAILY PRN (Reason: Skin Irritation) RF: 0 rizatriptan 10 mg tablet,disintegrating See Label Instructions .ROUTE .COMPLEX RF: 0 clobetasol 0.05 % ointment 1 applic Topical SUSA RF: 0 atorvastatin [Lipitor] 10 mg tablet 10 mg PO BEDTIME RF: 0 liothyronine [Cytomel] 25 mcg tablet 12.5 mcg PO DAILY RF: 0 omeprazole 40 mg capsule,delayed release(DR/EC) 40 mg PO QNOON RF: 0 levothyroxine 100 MCG tablet 100 mcg PO QAM RF: 0 tamsulosin [Flomax] 0.4 mg capsule 0.4 mg PO QNOON RF: 0 nortriptyline 10 mg capsule 10 mg PO BEDTIME RF: 0 clonazepam 2 mg tablet 2 mg PO BID RF: 0 sumatriptan succinate 6 MG/0.5 ML pen injector 6 mg SQ PRN MDD 2 PRN (Reason: Migraine Headache) RF: 0 bupropion HCl 300 mg tablet extended release 24 hr 300 mg PO QNOON RF: 0 metoprolol tartrate 25 MG tablet 25 mg PO BID RF: 0 multivitamin Tablet 1 tab PO DAILY RF: 0 alprazolam [Xanax] 1 mg Tablet 1 mg PO .ONCE RF: 0 calcium carbonate 390 mg calcium (1,000 mg) Tablet 1,000 mg PO DAILY RF: 0 Vitamin B-12 1 tab PO DAILY RF: 0 Referrals: Eleazar Armstrong MD [Primary Care Provider] -
[2018-02-21 09:32] LABS: Add Manual Diff / Slide Review NO; Basophils Percent Auto 0.4 % (0-2); Eosinophils Percent Auto 0.5 % (2-4); Hematocrit 48.5 % (41-53); Hemoglobin 16.4 g/dL (13.5-17.5); Lymphocytes Percent Auto 20.7 % (25-40); Mean Corpuscular HGB Conc 33.9 % (30-36); Mean Corpuscular Hemoglobin 31.1 PG (26-34); Mean Corpuscular Volume 91.9 fL (80-100); Monocytes Percent Auto 8.1 % (3-14); Neutrophils Absolute Auto 5300 /uL (3000-5900); Neutrophils Percent Auto 70.3 % (50-75); Platelet Count 178 X10^3/uL (150-400); Red Blood Cell Count 5.28 X10^6/uL (4.5-5.9); Red Cell Distribution Width 14.8 % (11.6-14.8); White Blood Cell Count 7.5 X10^3/uL (4.5-11.0)
[2018-02-21] MEDS: ACETAMINOPHEN 325 MG TABLET 650 MG PO (09:47)
[2018-02-21 09:52] LABS: Alanine Aminotransferase 43 IU/L (21-72); Albumin 4.3 g/dL (3.5-5.0); Albumin Globulin Ratio 1.7 (1.0-2.8); Alkaline Phosphatase 98 U/L (38-126); Aspartate Aminotransferase 30 IU/L (17-59); Bilirubin Total 0.6 mg/dL (0.2-1.3); Blood Urea Nitrogen 19 mg/dL (9-20); Calcium 9.5 mg/dL (8.4-10.2); Carbon Dioxide 31 mmol/L (22-32); Chloride 101 mmol/L (98-107); Estimated Glomerular Filt Rate > 60.0 mL/min (>60); Globulin 2.5 g/dL (1.7-4.1); Glucose 91 mg/dL (80-110); HEMOLYSIS 18 (0-50); Lipase 150 U/L (23-300); Sodium 141 mmol/L (137-145); Total Protein 6.8 g/dL (6.3-8.2)
--- NOTE | 2018-02-25 15:02 | PC.NURSE ---
Pt states that he is still having pain in right side,pt followed up with [facility] the next day,he didn't change anything but wants to do CT if pain continues. Pt woke up this am with pain intermittent throughout day. Pt will followup sooner with [facility] if needed. Pt states that the ed could have given pain medications but he understands that they are cautious with pain medication. Pt states that dr montgomery does not prescribe pain medication. Pt hoped for a coupe pills for pain.
== END 2018-02-21 10:50 | disposition home or self-care (01) ==
PROVIDERS: Emergency Provider Emergency Medicine; PCP Internal Medicine
DX: M94.0 Chondrocostal junction syndrome [Tietze] (principal)
CPT/HCPCS: 36591; 71101; 76700; 80053; 83690; 85025; 99282; 99284

== ENCOUNTER 2018-03-14 06:08 | Emergency (ER) | payer MEDICARE, SELFPAY ==
--- NOTE | 2018-03-14 | DI.CT.S_ITS ---
PROCEDURE: CT ANGIO ABDOMEN/FEMORAL INDICATIONS: DROP 220lbs weight on right thigh,large expanding hematoma TECHNIQUE: After the administration of intravenous contrast, 2.5 mm thick sections acquired from the diaphragm to the symphysis. 10 mm maximum-intensity projection (MIP) reformats were then acquired. For radiation dose reduction, the following was used: automated exposure control. COMPARISON: [facility], CT, IVP (ABD & PEL WWO CONTRAST), 04/21/2016, 14:09. FINDINGS: Image quality: Excellent. Aorta: Aorta demonstrates no aneurysmal dilation, dissection or stenosis. Mesenteric arteries: Celiac trunk, superior and inferior mesenteric arteries appear patent. Right pelvic arteries: The common, internal/external iliac, common/profunda/superficial femoral, popliteal, anterior/posterior tibial and peroneal arteries demonstrate no areas of hemodynamically significant stenosis, vascular occlusion aneurysmal dilation. There is a soft tissue low attenuation mass measuring approximately 47 mm AP by 15 mm transverse by 58 mm craniocaudal within the anterior medial right thigh. It is confined within the subcutaneous tissues. Surrounding the mass, prominent fat stranding is present. Hounsfield units of the mass measure approximately 56. There is a small focus of hyperdensity identified within the mid posterior aspect of the mass seen best on series 4 image 96. Left pelvic arteries: The common, internal/external iliac, common/profunda/superficial femoral, popliteal, anterior/posterior tibial and peroneal arteries demonstrate no areas of hemodynamically significant stenosis, vascular occlusion aneurysmal dilation. Extravascular soft tissues: Lung bases are clear. Heart size is normal. Liver, gallbladder, spleen, adrenals, pancreas and kidneys are not included or not fully included within the [id number]. Liver is normal in size and enhancement. Kidneys are normal in size and enhancement, without hydronephrosis. Right-sided low attenuation renal foci are present likely cysts the largest measuring 36 mm. There is a 2 mm nonobstructing left renal calculus. Non opacified bowel loops are normal in wall thickness and caliber. No free fluid or air. No retroperitoneal or mesenteric adenopathy. No ventral hernias. No suspicious bony lesions. No vertebral body compression fractures. Bilateral fat containing inguinal hernias are present. IMPRESSION: 1. Right anterior medial subcutaneous mass most suggestive of hematoma. Focus of increased density is noted within the midportion, most suggestive of vascular extravasation likely representing a [employer] vessel. Main arteries including the iliac and femoral arteries are unremarkable. The above findings were discussed with Dr. Lyubov Beavers on 03/14/18 and 9:09 PM. Dictated by: Misty Fernandez M.D. on 03/14/2018 at 9:02 Approved by: Misty Fernandez M.D. on 03/14/2018 at 9:15
[2018-03-14 06:22] VITALS: BP 132/90; PULSE 73; RESP 18; TEMP 36.4; O2SAT 100; BMI 34.4
--- NOTE | 2018-03-14 06:43 | ED.LOWEXIN ---
HPI - Extremity Injury (Lower) <Jarrett Lesliean, - Last Filed: 03/15/18 01:41> General Chief Complaint: Extremity Injury, Lower Stated Complaint: Leg Injury Time Seen by Provider: 03/14/18 06:15 Source: patient Mode of arrival: ambulatory Limitations: no limitations History of Present Illness HPI Narrative: 63-year-old male with chronic medical history presents with severe right leg pain after dropping a 200 lb bike rack on his medial thigh yesterday. He has developed a very large hematoma as medial thigh and takes blood thinners due to his history of 4 strokes. He has significant pain with ambulation or range of motion and improvement with rest. He denies numbness, tingling or weakness. MD complaint: thigh injury Onset (ago): hour(s) Type of Injury: blunt Place: home Severity: severe Relieving factors: rest Exacerbating factors: weight bearing Context: direct blow Associated symptoms: unable to bear weight Other symptoms: none Related Data Home Medications Medication Instructions Recorded Confirmed fluticasone-vilanterol [Breo 1 puff INH DAILY #0 12/03/16 03/14/18 Ellipta] calcipotriene [Dovonex] 1 gm TOPICAL BID #0 02/04/17 03/14/18 montelukast [Singulair] 10 mg PO BEDTIME #0 02/04/17 03/14/18 ipratropium-albuterol [Combivent See Label Instructions .ROUTE 04/15/17 03/14/18 Respimat] .COMPLEX #0 MDD 6 albuterol sulfate 1.25 mg INH Q4HP PRN #0 05/24/17 03/14/18 albuterol sulfate [Ventolin HFA] 1 puff INH SEE INSTRUCTIONS 08/22/17 03/14/18 apixaban 5 mg tablet 5 mg PO BID 01/12/18 03/14/18 Vitamin B-12 1 tab PO DAILY 02/21/18 03/14/18 alprazolam [Xanax] 1 mg PO .ONCE 02/21/18 03/14/18 bupropion HCl 300 mg PO QNOON 02/21/18 03/14/18 calcium carbonate 1,000 mg PO DAILY 02/21/18 03/14/18 clobetasol 1 applic TOPICAL SUSA 02/21/18 03/14/18 clonazepam 1 mg PO QNOON 02/21/18 03/14/18 clonazepam 2 mg PO BID 02/21/18 03/14/18 desonide 1 applic TOPICAL PRN PRN 02/21/18 03/14/18 ketoconazole 1 applic TOPICAL DAILY PRN 02/21/18 03/14/18 levothyroxine 100 mcg PO QAM 02/21/18 03/14/18 multivitamin 1 tab PO DAILY 02/21/18 03/14/18 nortriptyline 10 mg PO BEDTIME 02/21/18 03/14/18 rizatriptan See Label Instructions .ROUTE 02/21/18 03/14/18 .COMPLEX sumatriptan succinate 6 mg SQ PRN PRN MDD 2 02/21/18 03/14/18 tamsulosin [Flomax] 0.4 mg PO QNOON 02/21/18 03/14/18 lamotrigine 200 mg PO BEDTIME 03/14/18 03/14/18 Previous Rx's Medication Instructions Recorded sumatriptan [Imitrex] 20 mg INTRANASAL SEE INSTRUCTIONS 06/15/17 #90 dose prochlorperazine maleate 10 mg 10 mg PO Q6H PRN #120 tab 12/13/17 tablet cyclobenzaprine 10 mg tablet 10 mg PO TID PRN #30 tab 01/09/18 lidocaine 5 % topical patch 1 patch TOP .COMPLEX #15 each 01/17/18 duloxetine 60 mg capsule,delayed 60 mg PO QNOON #90 cap 02/10/18 release atorvastatin 10 mg tablet 10 mg PO BEDTIME #90 tab 03/09/18 eszopiclone 3 mg tablet 3 mg PO BEDTIME #20 tab 03/09/18 liothyronine 25 mcg tablet 12.5 mcg PO DAILY #45 tab 03/09/18 metoprolol tartrate 25 mg tablet 25 mg PO BID #180 tab 03/09/18 omeprazole 40 mg capsule,delayed 40 mg PO QNOON #90 cap 03/09/18 release oxycodone-acetaminophen [Percocet] 1 tab PO Q4-6H PRN #20 tab 03/14/18 Allergies Allergy/AdvReac Type Severity Reaction Status Date / Time doxycycline [DOXYCYCLINE] Allergy Mild ITCHING Verified 03/14/18 07:46 ketorolac [KETOROLAC] Allergy Unknown Verified 03/14/18 07:46 NSAIDS (Non-Steroidal AdvReac Unknown TO AVOID Verified 03/14/18 07:46 Anti-Inflamma R/T [NSAIDS (NON-STEROIDAL GASTRIC ANTI-INFLAMMA] BYPASS Review of Systems <Jarrett Perdomo DO - Last Filed: 03/15/18 01:41> Review of Systems All systems reviewed & are unremarkable except as noted in HPI and below Constitutional Denies chills, Denies fever(s), Denies lethargy and Denies weakness Eyes Denies change in vision, Denies eye discharge, Denies irritation and Denies loss of vision ENT Ears, Nose, Mouth, and Throat: Denies change in voice, Denies neck pain and Denies sore throat Cardiovascular Denies chest pain, Denies irregular heart rhythm, Denies lightheadedness, Denies palpitations, Denies dyspnea, Denies dyspnea on exertion and Denies orthopnea Respiratory Denies cough, Denies dyspnea, Denies dyspnea on exertion and Denies wheezing Gastrointestinal Gastrointestinal: Denies abdominal pain, Denies change in bowel habits, Denies diarrhea, Denies nausea and Denies vomiting Genitourinary Denies hematuria, Denies flank pain, Denies urinary incontinence and Denies urinary urgency Musculoskeletal Reports limited range of motion and Denies neck pain Integumentary/Breasts Denies pruritus, Denies erythema, Denies rash and Denies wounds Comments: Large expanding hematoma right medial thigh Neurologic Denies confusion, Denies loss of vision and Denies weakness Psychiatric Denies anxiety, Denies confusion, Denies depression, Denies homicidal ideation and Denies suicidal ideation Endocrine Denies palpitations Hematologic/Lymphatic Denies easy bruising Allergic/Immunologic Denies wheezing Exam <Jarrett Perdomo DO - Last Filed: 03/15/18 01:41> Narrative Exam Narrative: GENERAL: 63-year-old male obviously in pain, clutching his right medial thigh HEAD: Atraumatic. Normocephalic. No temporal or scalp tenderness. EYES: Pupils equal round and reactive. Extraocular motions intact. No scleral icterus. No injection or drainage. ENT: Nose without bleeding, purulent drainage or septal hematoma. Throat without erythema, tonsillar hypertrophy or exudate. Uvula midline. Airway patent. NECK: Trachea midline. No JVD or lymphadenopathy. Supple, nontender, no meningeal signs. CARDIOVASCULAR: Regular rate and rhythm without murmurs, gallops, or rubs. RESPIRATORY: Clear to auscultation. Breath sounds equal bilaterally. No wheezes, rales, or rhonchi. GASTROINTESTINAL: Abdomen soft, non-tender, nondistended. No hepato-splenomegaly, or palpable masses. No guarding. EXTREMITIES: Patient has full but painful range of motion of the right lower extremity. There is a large hematoma encompassing the majority of his medial thigh from groin to just proximal to the knee. Distal pulses and sensation are intact. BACK: Nontender without deformity or crepitance. No flank tenderness. NEURO: AOx3. SKIN: No rash or erythema. Impressive ecchymosis to right medial thigh Initial Vital Signs Initial Vital Signs: Vital Signs Temperature 97.5 F L 03/14/18 06:22 Pulse Rate 73 03/14/18 06:22 Respiratory Rate 18 03/14/18 06:22 Blood Pressure 132/90 03/14/18 06:22 Pulse Oximetry 100 03/14/18 06:22 <Lyubov Beavers DO - Last Filed: 03/14/18 18:14> Initial Vital Signs Initial Vital Signs: Vital Signs Temperature 97.5 F L 03/14/18 06:22 Pulse Rate 73 03/14/18 06:22 Respiratory Rate 18 03/14/18 06:22 Blood Pressure 132/90 03/14/18 06:22 Pulse Oximetry 100 03/14/18 06:22 Course <Jarrett Perdomo DO - Last Filed: 03/15/18 01:41> Orders Ordered: Discontinued Medications Hydromorphone HCl (Dilaudid) 1 mg IV NOW ONE Stop: 03/14/18 06:34 Last Admin: 03/14/18 07:15 Dose: 1 mg Hydromorphone HCl (Dilaudid) 1 mg IV NOW ONE Stop: 03/14/18 07:43 Last Admin: 03/14/18 07:47 Dose: 1 mg Vital Signs - 8 hr 03/14/18 10:30 Pulse Rate 79 Respiratory Rate 18 Blood Pressure [Left Arm] 133/82 Pulse Oximetry 95 <DO Irene Patton Last Filed: 03/14/18 18:14> Orders Ordered: Discontinued Medications Hydromorphone HCl (Dilaudid) 1 mg IV NOW ONE Stop: 03/14/18 06:34 Last Admin: 03/14/18 07:15 Dose: 1 mg Hydromorphone HCl (Dilaudid) 1 mg IV NOW ONE Stop: 03/14/18 07:43 Last Admin: 03/14/18 07:47 Dose: 1 mg Vital Signs - 8 hr 03/14/18 10:30 Pulse Rate 79 Respiratory Rate 18 Blood Pressure [Left Arm] 133/82 Pulse Oximetry 95 MDM - Extremity Injury (Lower) <Jarrett Perdomo DO - Last Filed: 03/15/18 01:41> Lab Data Result diagrams: 03/14/18 07:08 03/14/18 07:08 Lab Results 03/14/18 03/14/18 03/14/18 Range/Units 07:08 07:08 07:08 WBC 9.8 (4.5-11.0) X10^3/uL RBC 4.73 (4.5-5.9) X10^6/uL Hgb 14.9 (13.5-17.5) g/dL Hct 44.0 (41-53) % MCV 93.0 (80-100) fL MCH 31.5 (26-34) PG MCHC 33.8 (30-36) % RDW 14.9 H (11.6-14.8) % Plt Count 149 L (150-400) X10^3/uL Neut % (Auto) 73.8 (50-75) % Lymph % (Auto) 15.4 L (25-40) % [place] % (Auto) 9.8 (3-14) % Eos % (Auto) 0.6 L (2-4) % Baso % (Auto) 0.4 (0-2) % Neut # (Auto) 7300 H (3162-3234) /uL PT 14.7 H (10.1-12.7) SECONDS INR 1.3 (0.9-1.3) APTT 37 H (26.4-36.2) SECONDS Sodium 143 (137-145) mmol/L Potassium 4.3 (3.4-5.1) mmol/L Chloride 105 (98-107) mmol/L Carbon Dioxide 30 (22-32) mmol/L BUN 17 (9-20) mg/dL Creatinine 0.80 (0.66-1.25) mg/dL Estimated GFR > 60.0 (>60) mL/min BUN/Creatinine Ratio 21.3 (6-22) Glucose 77 L (80-110) mg/dL Calcium 9.0 (8.4-10.2) mg/dL <Lyubov Walter Beavers, DO - Last Filed: 03/14/18 18:14> Lab Data Attestation: I reviewed the patient's lab results. Lab Results 03/14/18 03/14/18 03/14/18 Range/Units 07:08 07:08 07:08 WBC 9.8 (4.5-11.0) X10^3/uL RBC 4.73 (4.5-5.9) X10^6/uL Hgb 14.9 (13.5-17.5) g/dL Hct 44.0 (41-53) % MCV 93.0 (80-100) fL MCH 31.5 (26-34) PG MCHC 33.8 (30-36) % RDW 14.9 H (11.6-14.8) % Plt Count 149 L (150-400) X10^3/uL Neut % (Auto) 73.8 (50-75) % Lymph % (Auto) 15.4 L (25-40) % [place] % (Auto) 9.8 (3-14) % Eos % (Auto) 0.6 L (2-4) % Baso % (Auto) 0.4 (0-2) % Neut # (Auto) 7300 H (4149-2529) /uL PT 14.7 H (10.1-12.7) SECONDS INR 1.3 (0.9-1.3) APTT 37 H (26.4-36.2) SECONDS Sodium 143 (137-145) mmol/L Potassium 4.3 (3.4-5.1) mmol/L Chloride 105 (98-107) mmol/L Carbon Dioxide 30 (22-32) mmol/L BUN 17 (9-20) mg/dL Creatinine 0.80 (0.66-1.25) mg/dL Estimated GFR > 60.0 (>60) mL/min BUN/Creatinine Ratio 21.3 (6-22) Glucose 77 L (80-110) mg/dL Calcium 9.0 (8.4-10.2) mg/dL Imaging Data abd/runoff: Radiologist's impression: [address] [address] [address] Scan Report Signed Patient: Mario Hemphill [facility]#: [id number] : 4Acct:[id number] Age/Sex: 63 / MDate of Service: 03/14/18 Loc: ED Accession Number: [id number] Procedure: CT angio abdomen/femoral Ordering Provider: Jarrett Perdomo D.O. PROCEDURE: CT ANGIO ABDOMEN/FEMORAL INDICATIONS: DROP 220lbs weight on right thigh,large expanding hematoma TECHNIQUE: After the administration of intravenous contrast, 2.5 mm thick sections acquired from the diaphragm to the symphysis. 10 mm maximum-intensity projection (MIP) reformats were then acquired. For radiation dose reduction, the following was used: automated exposure control. COMPARISON: [facility], CT, IVP (ABD & PEL WWO CONTRAST), 04/21/2016, 14:09. FINDINGS: Image quality: Excellent. Aorta: Aorta demonstrates no aneurysmal dilation, dissection or stenosis. Mesenteric arteries: Celiac trunk, superior and inferior mesenteric arteries appear patent. Right pelvic arteries: The common, internal/external iliac, common/profunda/superficial femoral, popliteal, anterior/posterior tibial and peroneal arteries demonstrate no areas of hemodynamically significant stenosis, vascular occlusion aneurysmal dilation. There is a soft tissue low attenuation mass measuring approximately 47 mm AP by 15 mm transverse by 58 mm craniocaudal within the anterior medial right thigh. It is confined within the subcutaneous tissues. Surrounding the mass, prominent fat stranding is present. Hounsfield units of the mass measure approximately 56. There is a small focus of hyperdensity identified within the mid posterior aspect of the mass seen best on series 4 image 96. Left pelvic arteries: The common, internal/external iliac, common/profunda/superficial femoral, popliteal, anterior/posterior tibial and peroneal arteries demonstrate no areas of hemodynamically significant stenosis, vascular occlusion aneurysmal dilation. Extravascular soft tissues: Lung bases are clear. Heart size is normal. Liver, gallbladder, spleen, adrenals, pancreas and kidneys are not included or not fully included within the [id number]. Liver is normal in size and enhancement. Kidneys are normal in size and enhancement, without hydronephrosis. Right-sided low attenuation renal foci are present likely cysts the largest measuring 36 mm. There is a 2 mm nonobstructing left renal calculus. Non opacified bowel loops are normal in wall thickness and caliber. No free fluid or air. No retroperitoneal or mesenteric adenopathy. No ventral hernias. No suspicious bony lesions. No vertebral body compression fractures. Bilateral fat containing inguinal hernias are present. IMPRESSION: 1. Right anterior medial subcutaneous mass most suggestive of hematoma. Focus of increased density is noted within the midportion, most suggestive of vascular extravasation likely representing a orthotic technician vessel. Main arteries including the iliac and femoral arteries are unremarkable. The above findings were discussed with Dr. Lyubov Beavers on 03/14/18 and 9:09 PM. Dictated by: Misty Fernandez M.D. on 03/14/2018 at 9:02 Approved by: Misty Fernandez M.D. on 03/14/2018 at 9:15 MDM Narrative Medical decision making narrative: Patient signed out to myself by Dr. Perdomo, patient had 200# bike rack edge fall on his right thigh yesterday about 4pm. He was in significant pain immediately afterwards, has improved but still quite painful. First dose of dilaudid helpful but still has pain and second dose ordered. Patient on Eliquis second to multiple CVA. Patient has extensive surgical and medical history with prolonged hospitalization second to surgical complications. Patient states pain in thigh, none in lower leg, normal sensation in lower leg. Mild tingling in two toes. Patient has large hematoma on inner right thigh, sensation and pulses intact on recheck @ 0750. Labs reviewed, patient history and exam re-evaluated in room. Awaiting results of CT with runoff. CT results called to myself by Dr. Patel, active extravasation but from smaller peripheral skin artery, femoral, iliac large vessels all intact. Large hematoma. Final CT report also reviewed Dr. Abreu from Orthopedic surgery was contacted. Patient thigh wrapped with compression wrap. Images also pushed to [place] and consultation with vascular surgery as patient has had multiple CVA's and is very high risk if anticoagulation stopped. Discussed with Vascular they defer decision on anticoagulation but do recommend compression, no intervention at this time, would for compartment syndrome although less likely in thigh, expanding hematoma, decreased pulses. Discussed at length with patient, plan for d/c home patient to return if worsening symptoms, expanding hematoma, etc. Patient comfortable with this plan. Will not d/c elaquis 2nd to cva risk but does increase risk of continued bleeding. Discharge Plan Departure Patient Disposition: Home Clinical Impression: Traumatic hematoma of right thigh Discharge Date/Time: 03/14/18 10:56 Interventions: ED Discharge Assessment Last Done: 03/14/18 10:45 Instructions: DI for Hematoma (Bruise) Activity Restrictions/Additional Instructions: Follow up with your physician in the next 1-2 days for recheck. Return to ER for fevers greater than 100.4F, rapidly increasing bruising/spreading bruise, increasing pain, new numbness, weakness or loss of sensation in right leg/foot or other new or concerning symptoms. Take pain medications as prescribed, these medications can make you sleepy do not drive, perform hazards activities or make any major decisions while taking them. Continue to wear compression wrap on your right thigh for the next 48 hr. You may change or replace it as needed. I also recommend using ice to the affected area as needed. You may noticed some bruising spreading down the leg secondary to gravity but if the hematoma seems enlarged this is not normal. Prescriptions: New oxycodone-acetaminophen [Percocet] 10-325 mg tablet 1 tab PO Q4-6H PRN (Reason: pain) Qty: 20 RF: 0 No Action apixaban [Eliquis] 5 mg tablet 5 mg PO BID RF: 0 fluticasone-vilanterol [Breo Ellipta] 200 MCG/25 MCG blister with device 1 puff INH DAILY Qty: 0 RF: 0 montelukast [Singulair] 10 MG tablet 10 mg PO BEDTIME Qty: 0 RF: 0 calcipotriene [Dovonex] 0.005 % cream 1 gm Topical BID Qty: 0 RF: 0 ipratropium-albuterol [Combivent Respimat] 4 GM mist See Label Instructions .ROUTE .COMPLEX MDD 6 Qty: 0 RF: 0 albuterol sulfate 1.25 MG/3 ML solution for nebulization 1.25 mg INH Q4HP PRN (Reason: Shortness Of Breath) Qty: 0 RF: 0 sumatriptan [Imitrex] 20 MG spray,non-aerosol 20 mg Intranasal SEE INSTRUCTIONS Qty: 90 RF: 3 prochlorperazine maleate 10 mg tablet 10 mg PO Q6H PRN (Reason: Nausea) Qty: 120 RF: 0 cyclobenzaprine 10 mg tablet 10 mg PO TID PRN (Reason: muscle spasm) Qty: 30 RF: 0 duloxetine [Cymbalta] 60 mg capsule,delayed release(DR/EC) 60 mg PO QNOON Qty: 90 RF: 1 liothyronine [Cytomel] 25 mcg tablet 12.5 mcg PO DAILY Qty: 45 RF: 3 atorvastatin [Lipitor] 10 mg tablet 10 mg PO BEDTIME Qty: 90 RF: 0 omeprazole 40 mg capsule,delayed release(DR/EC) 40 mg PO QNOON Qty: 90 RF: 3 metoprolol tartrate 25 mg tablet 25 mg PO BID Qty: 180 RF: 3 eszopiclone 3 mg tablet 3 mg PO BEDTIME Qty: 20 RF: 1 lidocaine [Lidoderm] 5 % adhesive patch,medicated 1 patch TOP .COMPLEX Qty: 15 RF: 3 albuterol sulfate [Ventolin HFA] 90 MCG/PUFF HFA aerosol inhaler 1 puff INH SEE INSTRUCTIONS RF: 0 lamotrigine 200 mg tablet 200 mg PO BEDTIME RF: 0 clonazepam 2 mg tablet 1 mg PO QNOON RF: 0 desonide 0.05 % cream 1 applic Topical PRN PRN (Reason: Inflammation) RF: 0 ketoconazole 2 % shampoo 1 applic Topical DAILY PRN (Reason: Skin Irritation) RF: 0 rizatriptan 10 mg tablet,disintegrating See Label Instructions .ROUTE .COMPLEX RF: 0 clobetasol 0.05 % ointment 1 applic Topical SUSA RF: 0 levothyroxine 100 MCG tablet 100 mcg PO QAM RF: 0 tamsulosin [Flomax] 0.4 mg capsule 0.4 mg PO QNOON RF: 0 nortriptyline 10 mg capsule 10 mg PO BEDTIME RF: 0 clonazepam 2 mg tablet 2 mg PO BID RF: 0 sumatriptan succinate 6 MG/0.5 ML pen injector 6 mg SQ PRN MDD 2 PRN (Reason: Migraine Headache) RF: 0 bupropion HCl 300 mg tablet extended release 24 hr 300 mg PO QNOON RF: 0 multivitamin Tablet 1 tab PO DAILY RF: 0 alprazolam [Xanax] 1 mg Tablet 1 mg PO .ONCE RF: 0 calcium carbonate 390 mg calcium (1,000 mg) Tablet 1,000 mg PO DAILY RF: 0 Vitamin B-12 1 tab PO DAILY RF: 0 Referrals: Eleazar Armstrong MD [Primary Care Provider] - ED Cosign/Signout <Jarrett Perdomo DO - Last Filed: 03/15/18 01:41> Cosign ED Attending Cosignature Attestation: I was immediately available in the department for consultation. Documentation has been reviewed. I agree with assessment and plan.
--- NOTE | 2018-03-14 06:48 | ED_ITS ---
HPI - Extremity Injury (Lower) <Jarrett Lesliean, - Last Filed: 03/15/18 01:41> General Chief Complaint: Extremity Injury, Lower Stated Complaint: Leg Injury Time Seen by Provider: 03/14/18 06:15 Source: patient Mode of arrival: ambulatory Limitations: no limitations History of Present Illness HPI Narrative: 63-year-old male with chronic medical history presents with severe right leg pain after dropping a 200 lb bike rack on his medial thigh yesterday. He has developed a very large hematoma as medial thigh and takes blood thinners due to his history of 4 strokes. He has significant pain with ambulation or range of motion and improvement with rest. He denies numbness, tingling or weakness. MD complaint: thigh injury Onset (ago): hour(s) Type of Injury: blunt Place: home Severity: severe Relieving factors: rest Exacerbating factors: weight bearing Context: direct blow Associated symptoms: unable to bear weight Other symptoms: none Related Data Home Medications Medication Instructions Recorded Confirmed fluticasone-vilanterol [Breo 1 puff INH DAILY #0 12/03/16 03/14/18 Ellipta] calcipotriene [Dovonex] 1 gm TOPICAL BID #0 02/04/17 03/14/18 montelukast [Singulair] 10 mg PO BEDTIME #0 02/04/17 03/14/18 ipratropium-albuterol [Combivent See Label Instructions .ROUTE 04/15/17 03/14/18 Respimat] .COMPLEX #0 MDD 6 albuterol sulfate 1.25 mg INH Q4HP PRN #0 05/24/17 03/14/18 albuterol sulfate [Ventolin HFA] 1 puff INH SEE INSTRUCTIONS 08/22/17 03/14/18 apixaban 5 mg tablet 5 mg PO BID 01/12/18 03/14/18 Vitamin B-12 1 tab PO DAILY 02/21/18 03/14/18 alprazolam [Xanax] 1 mg PO .ONCE 02/21/18 03/14/18 bupropion HCl 300 mg PO QNOON 02/21/18 03/14/18 calcium carbonate 1,000 mg PO DAILY 02/21/18 03/14/18 clobetasol 1 applic TOPICAL SUSA 02/21/18 03/14/18 clonazepam 1 mg PO QNOON 02/21/18 03/14/18 clonazepam 2 mg PO BID 02/21/18 03/14/18 desonide 1 applic TOPICAL PRN PRN 02/21/18 03/14/18 ketoconazole 1 applic TOPICAL DAILY PRN 02/21/18 03/14/18 levothyroxine 100 mcg PO QAM 02/21/18 03/14/18 multivitamin 1 tab PO DAILY 02/21/18 03/14/18 nortriptyline 10 mg PO BEDTIME 02/21/18 03/14/18 rizatriptan See Label Instructions .ROUTE 02/21/18 03/14/18 .COMPLEX sumatriptan succinate 6 mg SQ PRN PRN MDD 2 02/21/18 03/14/18 tamsulosin [Flomax] 0.4 mg PO QNOON 02/21/18 03/14/18 lamotrigine 200 mg PO BEDTIME 03/14/18 03/14/18 Previous Rx's Medication Instructions Recorded sumatriptan [Imitrex] 20 mg INTRANASAL SEE INSTRUCTIONS 06/15/17 #90 dose prochlorperazine maleate 10 mg 10 mg PO Q6H PRN #120 tab 12/13/17 tablet cyclobenzaprine 10 mg tablet 10 mg PO TID PRN #30 tab 01/09/18 lidocaine 5 % topical patch 1 patch TOP .COMPLEX #15 each 01/17/18 duloxetine 60 mg capsule,delayed 60 mg PO QNOON #90 cap 02/10/18 release atorvastatin 10 mg tablet 10 mg PO BEDTIME #90 tab 03/09/18 eszopiclone 3 mg tablet 3 mg PO BEDTIME #20 tab 03/09/18 liothyronine 25 mcg tablet 12.5 mcg PO DAILY #45 tab 03/09/18 metoprolol tartrate 25 mg tablet 25 mg PO BID #180 tab 03/09/18 omeprazole 40 mg capsule,delayed 40 mg PO QNOON #90 cap 03/09/18 release oxycodone-acetaminophen [Percocet] 1 tab PO Q4-6H PRN #20 tab 03/14/18 Allergies Allergy/AdvReac Type Severity Reaction Status Date / Time doxycycline [DOXYCYCLINE] Allergy Mild ITCHING Verified 03/14/18 07:46 ketorolac [KETOROLAC] Allergy Unknown Verified 03/14/18 07:46 NSAIDS (Non-Steroidal AdvReac Unknown TO AVOID Verified 03/14/18 07:46 Anti-Inflamma R/T [NSAIDS (NON-STEROIDAL GASTRIC ANTI-INFLAMMA] BYPASS Review of Systems <Jarrett Perdomo DO - Last Filed: 03/15/18 01:41> Review of Systems All systems reviewed & are unremarkable except as noted in HPI and below Constitutional Denies chills, Denies fever(s), Denies lethargy and Denies weakness Eyes Denies change in vision, Denies eye discharge, Denies irritation and Denies loss of vision ENT Ears, Nose, Mouth, and Throat: Denies change in voice, Denies neck pain and Denies sore throat Cardiovascular Denies chest pain, Denies irregular heart rhythm, Denies lightheadedness, Denies palpitations, Denies dyspnea, Denies dyspnea on exertion and Denies orthopnea Respiratory Denies cough, Denies dyspnea, Denies dyspnea on exertion and Denies wheezing Gastrointestinal Gastrointestinal: Denies abdominal pain, Denies change in bowel habits, Denies diarrhea, Denies nausea and Denies vomiting Genitourinary Denies hematuria, Denies flank pain, Denies urinary incontinence and Denies urinary urgency Musculoskeletal Reports limited range of motion and Denies neck pain Integumentary/Breasts Denies pruritus, Denies erythema, Denies rash and Denies wounds Comments: Large expanding hematoma right medial thigh Neurologic Denies confusion, Denies loss of vision and Denies weakness Psychiatric Denies anxiety, Denies confusion, Denies depression, Denies homicidal ideation and Denies suicidal ideation Endocrine Denies palpitations Hematologic/Lymphatic Denies easy bruising Allergic/Immunologic Denies wheezing Exam <Jarrett Perdomo DO - Last Filed: 03/15/18 01:41> Narrative Exam Narrative: GENERAL: 63-year-old male obviously in pain, clutching his right medial thigh HEAD: Atraumatic. Normocephalic. No temporal or scalp tenderness. EYES: Pupils equal round and reactive. Extraocular motions intact. No scleral icterus. No injection or drainage. ENT: Nose without bleeding, purulent drainage or septal hematoma. Throat without erythema, tonsillar hypertrophy or exudate. Uvula midline. Airway patent. NECK: Trachea midline. No JVD or lymphadenopathy. Supple, nontender, no meningeal signs. CARDIOVASCULAR: Regular rate and rhythm without murmurs, gallops, or rubs. RESPIRATORY: Clear to auscultation. Breath sounds equal bilaterally. No wheezes , rales, or rhonchi. GASTROINTESTINAL: Abdomen soft, non-tender, nondistended. No hepato-splenomegaly , or palpable masses. No guarding. EXTREMITIES: Patient has full but painful range of motion of the right lower extremity. There is a large hematoma encompassing the majority of his medial thigh from groin to just proximal to the knee. Distal pulses and sensation are intact. BACK: Nontender without deformity or crepitance. No flank tenderness. NEURO: AOx3. SKIN: No rash or erythema. Impressive ecchymosis to right medial thigh Initial Vital Signs Initial Vital Signs: Vital Signs Temperature 97.5 F L 03/14/18 06:22 Pulse Rate 73 03/14/18 06:22 Respiratory Rate 18 03/14/18 06:22 Blood Pressure 132/90 03/14/18 06:22 Pulse Oximetry 100 03/14/18 06:22 <Lyubov Beavers DO - Last Filed: 03/14/18 18:14> Initial Vital Signs Initial Vital Signs: Vital Signs Temperature 97.5 F L 03/14/18 06:22 Pulse Rate 73 03/14/18 06:22 Respiratory Rate 18 03/14/18 06:22 Blood Pressure 132/90 03/14/18 06:22 Pulse Oximetry 100 03/14/18 06:22 Course <Jarrett Perdomo DO - Last Filed: 03/15/18 01:41> Orders Ordered: Discontinued Medications Hydromorphone HCl (Dilaudid) 1 mg IV NOW ONE Stop: 03/14/18 06:34 Last Admin: 03/14/18 07:15 Dose: 1 mg Hydromorphone HCl (Dilaudid) 1 mg IV NOW ONE Stop: 03/14/18 07:43 Last Admin: 03/14/18 07:47 Dose: 1 mg Vital Signs - 8 hr 03/14/18 10:30 Pulse Rate 79 Respiratory Rate 18 Blood Pressure [Left Arm] 133/82 Pulse Oximetry 95 <DO Irene Patton Last Filed: 03/14/18 18:14> Orders Ordered: Discontinued Medications Hydromorphone HCl (Dilaudid) 1 mg IV NOW ONE Stop: 03/14/18 06:34 Last Admin: 03/14/18 07:15 Dose: 1 mg Hydromorphone HCl (Dilaudid) 1 mg IV NOW ONE Stop: 03/14/18 07:43 Last Admin: 03/14/18 07:47 Dose: 1 mg Vital Signs - 8 hr 03/14/18 10:30 Pulse Rate 79 Respiratory Rate 18 Blood Pressure [Left Arm] 133/82 Pulse Oximetry 95 MDM - Extremity Injury (Lower) <Jarrett Perdomo DO - Last Filed: 03/15/18 01:41> Lab Data Result diagrams: 03/14/18 07:08 03/14/18 07:08 Lab Results 03/14/18 03/14/18 03/14/18 Range/Units 07:08 07:08 07:08 WBC 9.8 (4.5-11.0) X10^3/uL RBC 4.73 (4.5-5.9) X10^6/uL Hgb 14.9 (13.5-17.5) g/dL Hct 44.0 (41-53) % MCV 93.0 (80-100) fL MCH 31.5 (26-34) PG MCHC 33.8 (30-36) % RDW 14.9 H (11.6-14.8) % Plt Count 149 L (150-400) X10^3/uL Neut % (Auto) 73.8 (50-75) % Lymph % (Auto) 15.4 L (25-40) % Schley % (Auto) 9.8 (3-14) % Eos % (Auto) 0.6 L (2-4) % Baso % (Auto) 0.4 (0-2) % Neut # (Auto) 7300 H (4065-7668) /uL PT 14.7 H (10.1-12.7) SECONDS INR 1.3 (0.9-1.3) APTT 37 H (26.4-36.2) SECONDS Sodium 143 (137-145) mmol/L Potassium 4.3 (3.4-5.1) mmol/L Chloride 105 (98-107) mmol/L Carbon Dioxide 30 (22-32) mmol/L BUN 17 (9-20) mg/dL Creatinine 0.80 (0.66-1.25) mg/dL Estimated GFR > 60.0 (>60) mL/min BUN/Creatinine Ratio 21.3 (6-22) Glucose 77 L (80-110) mg/dL Calcium 9.0 (8.4-10.2) mg/dL <Lyubov Walter Beavers, DO - Last Filed: 03/14/18 18:14> Lab Data Attestation: I reviewed the patient's lab results. Lab Results 03/14/18 03/14/18 03/14/18 Range/Units 07:08 07:08 07:08 WBC 9.8 (4.5-11.0) X10^3/uL RBC 4.73 (4.5-5.9) X10^6/uL Hgb 14.9 (13.5-17.5) g/dL Hct 44.0 (41-53) % MCV 93.0 (80-100) fL MCH 31.5 (26-34) PG MCHC 33.8 (30-36) % RDW 14.9 H (11.6-14.8) % Plt Count 149 L (150-400) X10^3/uL Neut % (Auto) 73.8 (50-75) % Lymph % (Auto) 15.4 L (25-40) % Schley % (Auto) 9.8 (3-14) % Eos % (Auto) 0.6 L (2-4) % Baso % (Auto) 0.4 (0-2) % Neut # (Auto) 7300 H (7132-6107) /uL PT 14.7 H (10.1-12.7) SECONDS INR 1.3 (0.9-1.3) APTT 37 H (26.4-36.2) SECONDS Sodium 143 (137-145) mmol/L Potassium 4.3 (3.4-5.1) mmol/L Chloride 105 (98-107) mmol/L Carbon Dioxide 30 (22-32) mmol/L BUN 17 (9-20) mg/dL Creatinine 0.80 (0.66-1.25) mg/dL Estimated GFR > 60.0 (>60) mL/min BUN/Creatinine Ratio 21.3 (6-22) Glucose 77 L (80-110) mg/dL Calcium 9.0 (8.4-10.2) mg/dL Imaging Data abd/runoff: Radiologist's impression: [address] [address] [address] Scan Report Signed Patient: Mario Hemphill [facility]#: [id number] : 4Acct:[id number] Age/Sex: 63 / MDate of Service: 03/14/18 Loc: ED Accession Number: [id number] Procedure: CT angio abdomen/femoral Ordering Provider: Jarrett Perdomo D.O. PROCEDURE: CT ANGIO ABDOMEN/FEMORAL INDICATIONS: DROP 220lbs weight on right thigh,large expanding hematoma TECHNIQUE: After the administration of intravenous contrast, 2.5 mm thick sections acquired from the diaphragm to the symphysis. 10 mm maximum-intensity projection (MIP) reformats were then acquired. For radiation dose reduction, the following was used: automated exposure control. COMPARISON: [facility], CT, IVP (ABD & PEL WWO CONTRAST), 04/21/2016, 14: 09. FINDINGS: Image quality: Excellent. Aorta: Aorta demonstrates no aneurysmal dilation, dissection or stenosis. Mesenteric arteries: Celiac trunk, superior and inferior mesenteric arteries appear patent. Right pelvic arteries: The common, internal/external iliac, common/profunda/ superficial femoral, popliteal, anterior/posterior tibial and peroneal arteries demonstrate no areas of hemodynamically significant stenosis, vascular occlusion aneurysmal dilation. There is a soft tissue low attenuation mass measuring approximately 47 mm AP by 15 mm transverse by 58 mm craniocaudal within the anterior medial right thigh. It is confined within the subcutaneous tissues. Surrounding the mass, prominent fat stranding is present. Hounsfield units of the mass measure approximately 56. There is a small focus of hyperdensity identified within the mid posterior aspect of the mass seen best on series 4 image 96. Left pelvic arteries: The common, internal/external iliac, common/profunda/ superficial femoral, popliteal, anterior/posterior tibial and peroneal arteries demonstrate no areas of hemodynamically significant stenosis, vascular occlusion aneurysmal dilation. Extravascular soft tissues: Lung bases are clear. Heart size is normal. Liver, gallbladder, spleen, adrenals, pancreas and kidneys are not included or not fully included within the [id number]. Liver is normal in size and enhancement. Kidneys are normal in size and enhancement, without hydronephrosis. Right-sided low attenuation renal foci are present likely cysts the largest measuring 36 mm. There is a 2 mm nonobstructing left renal calculus. Non opacified bowel loops are normal in wall thickness and caliber. No free fluid or air. No retroperitoneal or mesenteric adenopathy. No ventral hernias. No suspicious bony lesions. No vertebral body compression fractures. Bilateral fat containing inguinal hernias are present. IMPRESSION: 1. Right anterior medial subcutaneous mass most suggestive of hematoma. Focus of increased density is noted within the midportion, most suggestive of vascular extravasation likely representing a appraiser timber vessel. Main arteries including the iliac and femoral arteries are unremarkable. The above findings were discussed with Dr. Lyubov Beavers on 03/14/18 and 9:09 PM. Dictated by: Misty Fernandez M.D. on 03/14/2018 at 9:02 Approved by: Misty Fernandez M.D. on 03/14/2018 at 9:15 MDM Narrative Medical decision making narrative: Patient signed out to myself by Dr. Perdomo, patient had 200# bike rack edge fall on his right thigh yesterday about 4pm. He was in significant pain immediately afterwards, has improved but still quite painful. First dose of dilaudid helpful but still has pain and second dose ordered. Patient on Eliquis second to multiple CVA. Patient has extensive surgical and medical history with prolonged hospitalization second to surgical complications. Patient states pain in thigh, none in lower leg, normal sensation in lower leg. Mild tingling in two toes. Patient has large hematoma on inner right thigh, sensation and pulses intact on recheck @ 0750. Labs reviewed, patient history and exam re-evaluated in room. Awaiting results of CT with runoff. CT results called to myself by Dr. Patel, active extravasation but from smaller peripheral skin artery, femoral, iliac large vessels all intact. Large hematoma. Final CT report also reviewed Dr. Abreu from Orthopedic surgery was contacted. Patient thigh wrapped with compression wrap. Images also pushed to [place] and consultation with vascular surgery as patient has had multiple CVA's and is very high risk if anticoagulation stopped. Discussed with Vascular they defer decision on anticoagulation but do recommend compression, no intervention at this time, would for compartment syndrome although less likely in thigh, expanding hematoma, decreased pulses. Discussed at length with patient, plan for d/c home patient to return if worsening symptoms, expanding hematoma, etc. Patient comfortable with this plan. Will not d/c elaquis 2nd to cva risk but does increase risk of continued bleeding. Discharge Plan Departure Patient Disposition: Home Clinical Impression: Traumatic hematoma of right thigh Discharge Date/Time: 03/14/18 10:56 Interventions: ED Discharge Assessment Last Done: 03/14/18 10:45 Instructions: DI for Hematoma (Bruise) Activity Restrictions/Additional Instructions: Follow up with your physician in the next 1-2 days for recheck. Return to ER for fevers greater than 100.4F, rapidly increasing bruising/ spreading bruise, increasing pain, new numbness, weakness or loss of sensation in right leg/foot or other new or concerning symptoms. Take pain medications as prescribed, these medications can make you sleepy do not drive, perform hazards activities or make any major decisions while taking them. Continue to wear compression wrap on your right thigh for the next 48 hr. You may change or replace it as needed. I also recommend using ice to the affected area as needed. You may noticed some bruising spreading down the leg secondary to gravity but if the hematoma seems enlarged this is not normal. Prescriptions: New oxycodone-acetaminophen [Percocet] 10-325 mg tablet 1 tab PO Q4-6H PRN (Reason: pain) Qty: 20 RF: 0 No Action apixaban [Eliquis] 5 mg tablet 5 mg PO BID RF: 0 fluticasone-vilanterol [Breo Ellipta] 200 MCG/25 MCG blister with device 1 puff INH DAILY Qty: 0 RF: 0 montelukast [Singulair] 10 MG tablet 10 mg PO BEDTIME Qty: 0 RF: 0 calcipotriene [Dovonex] 0.005 % cream 1 gm Topical BID Qty: 0 RF: 0 ipratropium-albuterol [Combivent Respimat] 4 GM mist See Label Instructions .ROUTE .COMPLEX MDD 6 Qty: 0 RF: 0 albuterol sulfate 1.25 MG/3 ML solution for nebulization 1.25 mg INH Q4HP PRN (Reason: Shortness Of Breath) Qty: 0 RF: 0 sumatriptan [Imitrex] 20 MG spray,non-aerosol 20 mg Intranasal SEE INSTRUCTIONS Qty: 90 RF: 3 prochlorperazine maleate 10 mg tablet 10 mg PO Q6H PRN (Reason: Nausea) Qty: 120 RF: 0 cyclobenzaprine 10 mg tablet 10 mg PO TID PRN (Reason: muscle spasm) Qty: 30 RF: 0 duloxetine [Cymbalta] 60 mg capsule,delayed release(DR/EC) 60 mg PO QNOON Qty: 90 RF: 1 liothyronine [Cytomel] 25 mcg tablet 12.5 mcg PO DAILY Qty: 45 RF: 3 atorvastatin [Lipitor] 10 mg tablet 10 mg PO BEDTIME Qty: 90 RF: 0 omeprazole 40 mg capsule,delayed release(DR/EC) 40 mg PO QNOON Qty: 90 RF: 3 metoprolol tartrate 25 mg tablet 25 mg PO BID Qty: 180 RF: 3 eszopiclone 3 mg tablet 3 mg PO BEDTIME Qty: 20 RF: 1 lidocaine [Lidoderm] 5 % adhesive patch,medicated 1 patch TOP .COMPLEX Qty: 15 RF: 3 albuterol sulfate [Ventolin HFA] 90 MCG/PUFF HFA aerosol inhaler 1 puff INH SEE INSTRUCTIONS RF: 0 lamotrigine 200 mg tablet 200 mg PO BEDTIME RF: 0 clonazepam 2 mg tablet 1 mg PO QNOON RF: 0 desonide 0.05 % cream 1 applic Topical PRN PRN (Reason: Inflammation) RF: 0 ketoconazole 2 % shampoo 1 applic Topical DAILY PRN (Reason: Skin Irritation) RF: 0 rizatriptan 10 mg tablet,disintegrating See Label Instructions .ROUTE .COMPLEX RF: 0 clobetasol 0.05 % ointment 1 applic Topical SUSA RF: 0 levothyroxine 100 MCG tablet 100 mcg PO QAM RF: 0 tamsulosin [Flomax] 0.4 mg capsule 0.4 mg PO QNOON RF: 0 nortriptyline 10 mg capsule 10 mg PO BEDTIME RF: 0 clonazepam 2 mg tablet 2 mg PO BID RF: 0 sumatriptan succinate 6 MG/0.5 ML pen injector 6 mg SQ PRN MDD 2 PRN (Reason: Migraine Headache) RF: 0 bupropion HCl 300 mg tablet extended release 24 hr 300 mg PO QNOON RF: 0 multivitamin Tablet 1 tab PO DAILY RF: 0 alprazolam [Xanax] 1 mg Tablet 1 mg PO .ONCE RF: 0 calcium carbonate 390 mg calcium (1,000 mg) Tablet 1,000 mg PO DAILY RF: 0 Vitamin B-12 1 tab PO DAILY RF: 0 Referrals: Eleazar Armstrong MD [Primary Care Provider] - ED Cosign/Signout <Jarrett Perdomo DO - Last Filed: 03/15/18 01:41> Cosign ED Attending Cosignature Attestation: I was immediately available in the department for consultation. Documentation has been reviewed. I agree with assessment and plan.
[2018-03-14] MEDS: HYDROMORPHONE 1 MG INJ IV ×2 (07:15→07:47)
[2018-03-14 07:19] LABS: Add Manual Diff / Slide Review NO; Basophils Percent Auto 0.4 % (0-2); Eosinophils Percent Auto 0.6 % (2-4); Hemoglobin 14.9 g/dL (13.5-17.5); Lymphocytes Percent Auto 15.4 % (25-40); Mean Corpuscular HGB Conc 33.8 % (30-36); Mean Corpuscular Hemoglobin 31.5 PG (26-34); Monocytes Percent Auto 9.8 % (3-14); Neutrophils Absolute Auto 7300 /uL (3000-5900); Neutrophils Percent Auto 73.8 % (50-75); Platelet Count 149 X10^3/uL (150-400); Red Blood Cell Count 4.73 X10^6/uL (4.5-5.9); Red Cell Distribution Width 14.9 % (11.6-14.8); White Blood Cell Count 9.8 X10^3/uL (4.5-11.0)
[2018-03-14 07:27] LABS: BUN Creatinine Ratio 21.3 (6-22); Blood Urea Nitrogen 17 mg/dL (9-20); Carbon Dioxide 30 mmol/L (22-32); Chloride 105 mmol/L (98-107); Estimated Glomerular Filt Rate > 60.0 mL/min (>60); Glucose 77 mg/dL (80-110); HEMOLYSIS < 15 (0-50); Potassium 4.3 mmol/L (3.4-5.1); Sodium 143 mmol/L (137-145)
--- NOTE | 2018-03-14 07:36 | PC.NURSE ---
assuming care, pt reports, he was storing his bike rack 150lbs, fell unto him yesterday at 430pm, now obtained severe echymosis , hematoma, pain, right upper thigh, pain right inner knee, intermittent numbness right foot, pt able to wiggle toes, positive DP pulse, distal cms intact. genital area is fine, able to void, pt takes eloquis for multiple cva, also reports right lower back pain worsen since the injury.
[2018-03-14 07:39] VITALS: BP 127/84; PULSE 76; RESP 18; O2SAT 94
[2018-03-14 07:41] LABS: INR 1.3 (0.9-1.3); Prothrombin Time 14.7 SECONDS (10.1-12.7)
[2018-03-14 07:43] LABS: PTT Partial Thromboplastin Tim 37 SECONDS (26.4-36.2)
[2018-03-14 07:50] VITALS: BP 137/88
--- NOTE | 2018-03-14 09:18 | PC.NURSE ---
0815 pt reports, dilaudid helped, its tolerable, but rating the same at 6/10.
[2018-03-14 09:30] VITALS: BP 134/80; PULSE 71; RESP 16; O2SAT 97
[2018-03-14 10:00] VITALS: BP 137/90; PULSE 76; RESP 16; O2SAT 96
[2018-03-14 10:30] VITALS: BP 133/82; PULSE 79; RESP 18; O2SAT 95
--- NOTE | 2018-03-14 10:30 | PC.NURSE ---
distal cms intact.
--- NOTE | 2018-03-14 10:45 | PC.NURSE ---
left upper port deaccessed, cleaned with alcohol,tolerated well, no bleeding noted, drsg applied.
--- NOTE | 2018-03-14 10:56 | PC.NURSE ---
pt requested change dosing of percocet to 10mg. dr alvarez made aware.
== END 2018-03-14 10:56 | disposition home or self-care (01) ==
PROVIDERS: Emergency Medicine; Emergency Provider Emergency Medicine; PCP Internal Medicine
DX: S70.11XA Contusion of right thigh, initial encounter (principal); W23.0XXA Caught, crushed, jammed, or pinched between moving objects, initial encounter
CPT/HCPCS: 36591; 75635; 80048; 85025; 85610; 85730; 96374; 96375; 99283; 99284; J1170; Q9967

== ENCOUNTER 2018-03-22 20:19 | Emergency (ER) | payer MEDICARE, SELFPAY ==
[2018-03-22 20:22] VITALS: TEMP 36.6
--- NOTE | 2018-03-22 20:49 | ED_ITS ---
HPI - General Adult General Chief complaint: Recheck/Abnormal Lab/Rx Stated complaint: STATES SEVERE HEMATOMA Time Seen by Provider: 03/22/18 20:32 Source: patient Mode of arrival: ambulatory Limitations: no limitations History of Present Illness HPI narrative: 63-year-old male who was seen here in the emergency department several days ago and also with his primary care doctor after he sustained an injury to his right upper leg. He was on apixaban for prevention of strokes. He developed a fairly large right upper leg hematoma. Was given pain medications here in the emergency department. Was followed up with his primary doctor's given more pain medications. He reports that since then the swelling and the discoloration in the pain in his right lower extremity has worsened. He has not had any pain medication for the past couple days. No fevers. Does have some tingling in his foot. He has stopped his apixaban under the recommendation of his dietetic technician registered until his current situation improves. Related Data Home Medications Medication Instructions Recorded Confirmed fluticasone-vilanterol [Breo 1 puff INH DAILY #0 12/03/16 03/17/18 Ellipta] calcipotriene [Dovonex] 1 gm TOPICAL BID #0 02/04/17 03/17/18 montelukast [Singulair] 10 mg PO BEDTIME #0 02/04/17 03/17/18 ipratropium-albuterol [Combivent See Label Instructions .ROUTE 04/15/17 03/17/18 Respimat] .COMPLEX #0 MDD 6 albuterol sulfate 1.25 mg INH Q4HP PRN #0 05/24/17 03/17/18 albuterol sulfate [Ventolin HFA] 1 puff INH SEE INSTRUCTIONS 08/22/17 03/17/18 apixaban 5 mg tablet 5 mg PO BID 01/12/18 03/17/18 Vitamin B-12 1 tab PO DAILY 02/21/18 03/17/18 bupropion HCl 300 mg PO QNOON 02/21/18 03/17/18 calcium carbonate 1,000 mg PO DAILY 02/21/18 03/17/18 clobetasol 1 applic TOPICAL SUSA 02/21/18 03/17/18 desonide 1 applic TOPICAL PRN PRN 02/21/18 03/17/18 ketoconazole 1 applic TOPICAL DAILY PRN 02/21/18 03/17/18 levothyroxine 100 mcg PO QAM 02/21/18 03/17/18 multivitamin 1 tab PO DAILY 02/21/18 03/17/18 nortriptyline 10 mg PO BEDTIME 02/21/18 03/17/18 sumatriptan succinate 6 mg SQ PRN PRN MDD 2 02/21/18 03/17/18 tamsulosin [Flomax] 0.4 mg PO QNOON 02/21/18 03/17/18 lamotrigine 200 mg PO BEDTIME 03/14/18 03/17/18 Previous Rx's Medication Instructions Recorded sumatriptan [Imitrex] 20 mg INTRANASAL SEE INSTRUCTIONS 06/15/17 #90 dose prochlorperazine maleate 10 mg 10 mg PO Q6H PRN #120 tab 12/13/17 tablet cyclobenzaprine 10 mg tablet 10 mg PO TID PRN #30 tab 01/09/18 lidocaine 5 % topical patch 1 patch TOP .COMPLEX #15 each 01/17/18 duloxetine 60 mg capsule,delayed 60 mg PO QNOON #90 cap 02/10/18 release atorvastatin 10 mg tablet 10 mg PO BEDTIME #90 tab 03/09/18 eszopiclone 3 mg tablet 3 mg PO BEDTIME #20 tab 03/09/18 liothyronine 25 mcg tablet 12.5 mcg PO DAILY #45 tab 03/09/18 metoprolol tartrate 25 mg tablet 25 mg PO BID #180 tab 03/09/18 omeprazole 40 mg capsule,delayed 40 mg PO QNOON #90 cap 03/09/18 release clonazepam 2 mg tablet 2 mg PO TID #21 tab 03/15/18 rizatriptan 10 mg disintegrating See Label Instructions .ROUTE 03/17/18 tablet .COMPLEX #30 tab oxycodone-acetaminophen 10 mg-325 1 tab PO Q4-6H PRN #20 tab 03/21/18 mg tablet oxycodone-acetaminophen [Percocet] 1 tab PO Q6H PRN #20 tab 03/22/18 Allergies Allergy/AdvReac Type Severity Reaction Status Date / Time doxycycline [DOXYCYCLINE] Allergy Mild ITCHING Verified 03/17/18 10:23 ketorolac [KETOROLAC] Allergy Unknown Verified 03/17/18 10:23 NSAIDS (Non-Steroidal AdvReac Unknown TO AVOID Verified 03/17/18 10:23 Anti-Inflamma R/T [NSAIDS (NON-STEROIDAL GASTRIC ANTI-INFLAMMA] BYPASS Review of Systems Constitutional Denies fever(s) Cardiovascular Denies chest pain and Denies dyspnea Respiratory Denies dyspnea Gastrointestinal Gastrointestinal: Denies abdominal pain Genitourinary Denies dysuria Musculoskeletal Comments: Pain and swelling and discoloration to the right lower extremity Integumentary/Breasts Comments: Redness to the right lower extremity Neurologic Comments: Tingling to the right foot Hematologic/Lymphatic Comments: Was on apixaban house now. . 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 yeimy/sikh: Shinto travel history: over 6 months ago and other Smoking Status: Former smoker Tobacco: How many years used: 10 Smokeless tobacco user: other quit status: quit date established second hand exposure: Yes (Childhood) alcohol intake: current substance use type: does not use Exam Initial Vital Signs Initial Vital Signs: Vital Signs Temperature 97.8 F 03/22/18 20:22 Const General: cooperative, well developed, well groomed and No acute distress Orientation: alert, awake and oriented x3 HENMT Head: normal to inspection and normocephalic Resp Effort & Inspection: normal respiratory effort Cardio Pulses: dorsalis pedis present on the right External: normal external exam and circumcised Scrotum: scrotum normal and no scrotal swelling Skin Other: Patient with a large hematoma right inner proximal thigh. Surrounding redness that now extends to his buttock over the lateral portion of the thigh. Also has redness extending now down to his distal calf. Neuro Sensory Exam: no sensory deficits noted Extrem Other: Right ankle unremarkable. Patient able to move the right knee however with some fullness sensation in his calf and also his thigh. Right hip unremarkable Psych Appearance: grossly normal and well kempt Course Orders Ordered: ED Orders 03/22/18 21:38 Basic Metabolic Panel Stat Complete Blood Count AUTO DIFF Stat Partial Thromboplastin Time Stat Procalcitonin Stat Prothrombin Time INR Stat 03/22/18 21:49 Lactate (Lactic Acid) Stat Type and Screen Stat Discontinued Medications Hydromorphone HCl (Dilaudid) 2 mg IV NOW ONE Stop: 03/22/18 21:08 Last Admin: 03/22/18 21:41 Dose: 2 mg Oxycodone/Acetaminophen (Endocet 5/325 Prepack) 1 bottle MISC SEEINSTR ONE Stop: 03/22/18 23:33 Last Admin: 03/22/18 23:50 Dose: 1 bottle Vital Signs - 8 hr 03/22/18 20:22 03/22/18 21:13 03/22/18 22:59 Temperature 97.8 F 98.4 F Pulse Rate 91 H 74 Respiratory Rate 18 16 Blood Pressure Blood Pressure [Left Arm] 138/78 124/68 Pulse Oximetry 96 94 03/22/18 23:48 Temperature Pulse Rate 81 Respiratory Rate 16 Blood Pressure 121/67 Blood Pressure [Left Arm] Pulse Oximetry 97 Medical Decision Making Lab Data Lab results reviewed: Yes I reviewed the patient's lab results. Result diagrams: 03/22/18 21:38 03/22/18 21:38 Lab Results 03/22/18 03/22/18 03/22/18 Range/Units 21:38 21:38 21:38 WBC 6.0 (4.5-11.0) X10^3/uL RBC 3.94 L (4.5-5.9) X10^6/uL Hgb 12.6 L (13.5-17.5) g/dL Hct 36.6 L (41-53) % MCV 92.9 (80-100) fL MCH 32.0 (26-34) PG MCHC 34.5 (30-36) % RDW 14.6 (11.6-14.8) % Plt Count 246 (150-400) X10^3/uL Neut % (Auto) 69.3 (50-75) % Lymph % (Auto) 18.2 L (25-40) % Stewart % (Auto) 11.3 (3-14) % Eos % (Auto) 0.6 L (2-4) % Baso % (Auto) 0.6 (0-2) % Neut # (Auto) 4100 (4149-0680) /uL PT 12.1 (10.1-12.7) SECONDS INR 1.1 (0.9-1.3) APTT 30 D (26.4-36.2) SECONDS Sodium (137-145) mmol/L Potassium (3.4-5.1) mmol/L Chloride (98-107) mmol/L Carbon Dioxide (22-32) mmol/L BUN (9-20) mg/dL Creatinine (0.66-1.25) mg/dL Estimated GFR (>60) mL/min BUN/Creatinine Ratio (6-22) Glucose (80-110) mg/dL Lactate (0.7-2.1) mmol/L Calcium (8.4-10.2) mg/dL Procalcitonin < 0.05 (<0.5) ng/mL Blood Type Antibody Screen 03/22/18 03/22/18 03/22/18 Range/Units 21:38 21:49 21:49 WBC (4.5-11.0) X10^3/uL RBC (4.5-5.9) X10^6/uL Hgb (13.5-17.5) g/dL Hct (41-53) % MCV (80-100) fL MCH (26-34) PG MCHC (30-36) % RDW (11.6-14.8) % Plt Count (150-400) X10^3/uL Neut % (Auto) (50-75) % Lymph % (Auto) (25-40) % Stewart % (Auto) (3-14) % Eos % (Auto) (2-4) % Baso % (Auto) (0-2) % Neut # (Auto) (6665-8714) /uL PT (10.1-12.7) SECONDS INR (0.9-1.3) APTT (26.4-36.2) SECONDS Sodium 141 (137-145) mmol/L Potassium 3.9 (3.4-5.1) mmol/L Chloride 105 (98-107) mmol/L Carbon Dioxide 30 (22-32) mmol/L BUN 14 (9-20) mg/dL Creatinine 0.80 (0.66-1.25) mg/dL Estimated GFR > 60.0 (>60) mL/min BUN/Creatinine Ratio 17.5 (6-22) Glucose 161 H (80-110) mg/dL Lactate 1.5 (0.7-2.1) mmol/L Calcium 9.3 (8.4-10.2) mg/dL Procalcitonin (<0.5) ng/mL Blood Type A Positive Antibody Screen Negative MDM Narrative Medical decision making narrative: Patient was requesting pain medication on arrival. He stated that he would like his port accessed in the medication given that way because it acts faster. His right lower extremity bruising and redness is what I would expect it to be given the length of time since his injury and the fact that he was on anticoagulation. I have a low suspicion for compartment syndrome. Low suspicion for infection. He is neurovascularly intact. Has strong DP pulses on the right. I do not doubt that he is in pain secondary to the extent of his injury. I did discuss the case with Dr. Zarate who is on-call for the patient's primary care doctor. I do not feel that he needs admitted to the hospital. He was instructed he needed to contact his primary care doctor tomorrow for follow-up. I will refill his pain medication here in the emergency department. I informed the patient that if he needs more pain medication this needs to come from his primary care doctor not from the emergency department. Patient expressed understanding and agreement with this plan. Discharge Plan Departure Patient Disposition: Home Clinical Impression: Hematoma, Acute leg pain Discharge Date/Time: 03/22/18 23:48 Interventions: ED Discharge Assessment Last Done: 03/22/18 23:48 Instructions: DI for Hematoma (Bruise) Activity Restrictions/Additional Instructions: I do recommend that you contact Dr. Armstrong tomorrow for follow-up. Take the medication as directed. Future pain control needs to be provided by your primary care doctor. Prescriptions: New oxycodone-acetaminophen [Percocet] 10-325 mg tablet 1 tab PO Q6H PRN (Reason: pain) Qty: 20 RF: 0 No Action apixaban [Eliquis] 5 mg tablet 5 mg PO BID RF: 0 clonazepam 2 mg tablet 2 mg PO TID Qty: 21 RF: 0 fluticasone-vilanterol [Breo Ellipta] 200 MCG/25 MCG blister with device 1 puff INH DAILY Qty: 0 RF: 0 montelukast [Singulair] 10 MG tablet 10 mg PO BEDTIME Qty: 0 RF: 0 calcipotriene [Dovonex] 0.005 % cream 1 gm Topical BID Qty: 0 RF: 0 ipratropium-albuterol [Combivent Respimat] 4 GM mist See Label Instructions .ROUTE .COMPLEX MDD 6 Qty: 0 RF: 0 albuterol sulfate 1.25 MG/3 ML solution for nebulization 1.25 mg INH Q4HP PRN (Reason: Shortness Of Breath) Qty: 0 RF: 0 sumatriptan [Imitrex] 20 MG spray,non-aerosol 20 mg Intranasal SEE INSTRUCTIONS Qty: 90 RF: 3 prochlorperazine maleate 10 mg tablet 10 mg PO Q6H PRN (Reason: Nausea) Qty: 120 RF: 0 cyclobenzaprine 10 mg tablet 10 mg PO TID PRN (Reason: muscle spasm) Qty: 30 RF: 0 duloxetine [Cymbalta] 60 mg capsule,delayed release(DR/EC) 60 mg PO QNOON Qty: 90 RF: 1 liothyronine [Cytomel] 25 mcg tablet 12.5 mcg PO DAILY Qty: 45 RF: 3 atorvastatin [Lipitor] 10 mg tablet 10 mg PO BEDTIME Qty: 90 RF: 0 omeprazole 40 mg capsule,delayed release(DR/EC) 40 mg PO QNOON Qty: 90 RF: 3 metoprolol tartrate 25 mg tablet 25 mg PO BID Qty: 180 RF: 3 eszopiclone 3 mg tablet 3 mg PO BEDTIME Qty: 20 RF: 1 oxycodone-acetaminophen [Percocet] 10-325 mg tablet 1 tab PO Q4-6H PRN (Reason: pain) Qty: 20 RF: 0 lidocaine [Lidoderm] 5 % adhesive patch,medicated 1 patch TOP .COMPLEX Qty: 15 RF: 3 rizatriptan 10 mg tablet,disintegrating See Label Instructions .ROUTE .COMPLEX Qty: 30 RF: 4 albuterol sulfate [Ventolin HFA] 90 MCG/PUFF HFA aerosol inhaler 1 puff INH SEE INSTRUCTIONS RF: 0 lamotrigine 200 mg tablet 200 mg PO BEDTIME RF: 0 desonide 0.05 % cream 1 applic Topical PRN PRN (Reason: Inflammation) RF: 0 ketoconazole 2 % shampoo 1 applic Topical DAILY PRN (Reason: Skin Irritation) RF: 0 clobetasol 0.05 % ointment 1 applic Topical SUSA RF: 0 levothyroxine 100 MCG tablet 100 mcg PO QAM RF: 0 tamsulosin [Flomax] 0.4 mg capsule 0.4 mg PO QNOON RF: 0 nortriptyline 10 mg capsule 10 mg PO BEDTIME RF: 0 sumatriptan succinate 6 MG/0.5 ML pen injector 6 mg SQ PRN MDD 2 PRN (Reason: Migraine Headache) RF: 0 bupropion HCl 300 mg tablet extended release 24 hr 300 mg PO QNOON RF: 0 multivitamin Tablet 1 tab PO DAILY RF: 0 calcium carbonate 390 mg calcium (1,000 mg) Tablet 1,000 mg PO DAILY RF: 0 Vitamin B-12 1 tab PO DAILY RF: 0
[2018-03-22 21:13] VITALS: BP 138/78; PULSE 91; RESP 18; TEMP 36.9; O2SAT 96
[2018-03-22] MEDS: HYDROMORPHONE 0.5 MG INJ 2 MG IV (21:41)
[2018-03-22 21:46] LABS: Add Manual Diff / Slide Review NO; Basophils Percent Auto 0.6 % (0-2); Eosinophils Percent Auto 0.6 % (2-4); Hematocrit 36.6 % (41-53); Hemoglobin 12.6 g/dL (13.5-17.5); Lymphocytes Percent Auto 18.2 % (25-40); Mean Corpuscular HGB Conc 34.5 % (30-36); Mean Corpuscular Volume 92.9 fL (80-100); Monocytes Percent Auto 11.3 % (3-14); Neutrophils Absolute Auto 4100 /uL (3000-5900); Neutrophils Percent Auto 69.3 % (50-75); Platelet Count 246 X10^3/uL (150-400); Red Blood Cell Count 3.94 X10^6/uL (4.5-5.9); Red Cell Distribution Width 14.6 % (11.6-14.8)
[2018-03-22 21:50] LABS: INR 1.1 (0.9-1.3); Prothrombin Time 12.1 SECONDS (10.1-12.7)
[2018-03-22 21:53] LABS: PTT Partial Thromboplastin Tim 30 SECONDS (26.4-36.2)
[2018-03-22 21:57] LABS: BUN Creatinine Ratio 17.5 (6-22); Blood Urea Nitrogen 14 mg/dL (9-20); Calcium 9.3 mg/dL (8.4-10.2); Carbon Dioxide 30 mmol/L (22-32); Chloride 105 mmol/L (98-107); Estimated Glomerular Filt Rate > 60.0 mL/min (>60); Glucose 161 mg/dL (80-110); HEMOLYSIS < 15 (0-50); Potassium 3.9 mmol/L (3.4-5.1); Sodium 141 mmol/L (137-145)
[2018-03-22 22:06] LABS: Lactate (Lactic Acid) 1.5 mmol/L (0.7-2.1)
[2018-03-22 22:11] LABS: Procalcitonin < 0.05 ng/mL (<0.5)
[2018-03-22 22:59] VITALS: BP 124/68; PULSE 74; RESP 16; O2SAT 94
[2018-03-22 23:48] VITALS: BP 121/67; PULSE 81; RESP 16; O2SAT 97
[2018-03-22] MEDS: OXYCODONE/APAP 5/325 PREPACK 1 BOTTLE MISC (23:50)
== END 2018-03-22 23:48 | disposition home or self-care (01) ==
PROVIDERS: Emergency Provider Emergency Medicine; Family Provider Internal Medicine; PCP Internal Medicine
DX: S80.11XA Contusion of right lower leg, initial encounter (principal); M79.604 Pain in right leg
CPT/HCPCS: 36415; 80048; 83605; 84145; 85025; 85610; 85730; 86850; 86900; 86901; 96374; 99282; 99284; J1170

== ENCOUNTER 2018-03-28 02:24 | Emergency (ER) | payer MEDICARE, SELFPAY ==
[2018-03-28 02:37] VITALS: BP 167/144; PULSE 102; RESP 20; TEMP 36.6; O2SAT 96; BMI 34.4
--- NOTE | 2018-03-28 02:39 | ED_ITS ---
HPI - Abdominal Pain General Chief Complaint: Extremity Problem,Nontraumatic Stated Complaint: Right leg hematoma Time Seen by Provider: 03/28/18 02:38 Source: patient Mode of arrival: ambulatory Limitations: no limitations History of Present Illness HPI narrative: The patient was seen here 03/14/2018 with a large hematoma in the right thigh. A bike rack fell against his leg. He was on Eliquis at that time. He developed a large hematoma. CT area showed extravasation, apparently from a small vessel. The large arteries were intact. He was discharged on pain medications. He was seen here 03/22/2018 with pain exacerbation given pain medications. There is some redness the leg at that time. No infection was detected. He has Percocet at home for pain. He tells me he has a significant narcotic tolerance. He has a history of gastric bypass that resulted in sepsis. He was hospitalized for an extended stay, and developed a narcotic tolerance. He has been off Eliquis since the accident. The pain is in the calf at this time. He was sitting at home watching TV when the pain exacerbated. He has tingling in the lower extremity, no numbness. He did have numbness earlier in the clinical course. Related Data Home Medications Medication Instructions Recorded Confirmed fluticasone-vilanterol [Breo 1 puff INH DAILY #0 12/03/16 03/17/18 Ellipta] calcipotriene [Dovonex] 1 gm TOPICAL BID #0 02/04/17 03/17/18 montelukast [Singulair] 10 mg PO BEDTIME #0 02/04/17 03/17/18 ipratropium-albuterol [Combivent See Label Instructions .ROUTE 04/15/17 03/17/18 Respimat] .COMPLEX #0 MDD 6 albuterol sulfate 1.25 mg INH Q4HP PRN #0 05/24/17 03/17/18 albuterol sulfate [Ventolin HFA] 1 puff INH SEE INSTRUCTIONS 08/22/17 03/17/18 apixaban 5 mg tablet 5 mg PO BID 01/12/18 03/17/18 Vitamin B-12 1 tab PO DAILY 02/21/18 03/17/18 bupropion HCl 300 mg PO QNOON 02/21/18 03/17/18 calcium carbonate 1,000 mg PO DAILY 02/21/18 03/17/18 clobetasol 1 applic TOPICAL SUSA 02/21/18 03/17/18 desonide 1 applic TOPICAL PRN PRN 02/21/18 03/17/18 ketoconazole 1 applic TOPICAL DAILY PRN 02/21/18 03/17/18 levothyroxine 100 mcg PO QAM 02/21/18 03/17/18 multivitamin 1 tab PO DAILY 02/21/18 03/17/18 nortriptyline 10 mg PO BEDTIME 02/21/18 03/17/18 sumatriptan succinate 6 mg SQ PRN PRN MDD 2 02/21/18 03/17/18 tamsulosin [Flomax] 0.4 mg PO QNOON 02/21/18 03/17/18 lamotrigine 200 mg PO BEDTIME 03/14/18 03/17/18 Previous Rx's Medication Instructions Recorded sumatriptan [Imitrex] 20 mg INTRANASAL SEE INSTRUCTIONS 06/15/17 #90 dose prochlorperazine maleate 10 mg 10 mg PO Q6H PRN #120 tab 12/13/17 tablet cyclobenzaprine 10 mg tablet 10 mg PO TID PRN #30 tab 01/09/18 lidocaine 5 % topical patch 1 patch TOP .COMPLEX #15 each 01/17/18 duloxetine 60 mg capsule,delayed 60 mg PO QNOON #90 cap 02/10/18 release atorvastatin 10 mg tablet 10 mg PO BEDTIME #90 tab 03/09/18 eszopiclone 3 mg tablet 3 mg PO BEDTIME #20 tab 03/09/18 liothyronine 25 mcg tablet 12.5 mcg PO DAILY #45 tab 03/09/18 metoprolol tartrate 25 mg tablet 25 mg PO BID #180 tab 03/09/18 omeprazole 40 mg capsule,delayed 40 mg PO QNOON #90 cap 03/09/18 release clonazepam 2 mg tablet 2 mg PO TID #21 tab 03/15/18 rizatriptan 10 mg disintegrating See Label Instructions .ROUTE 03/17/18 tablet .COMPLEX #30 tab oxycodone-acetaminophen 10 mg-325 1 tab PO Q4-6H PRN #20 tab 03/21/18 mg tablet oxycodone-acetaminophen [Percocet] 1 tab PO Q6H PRN #20 tab 03/22/18 Allergies Allergy/AdvReac Type Severity Reaction Status Date / Time doxycycline [DOXYCYCLINE] Allergy Mild ITCHING Verified 03/17/18 10:23 ketorolac [KETOROLAC] Allergy Unknown Verified 03/17/18 10:23 NSAIDS (Non-Steroidal AdvReac Unknown TO AVOID Verified 03/17/18 10:23 Anti-Inflamma R/T [NSAIDS (NON-STEROIDAL GASTRIC ANTI-INFLAMMA] BYPASS Review of Systems Review of Systems All systems reviewed & are unremarkable except as noted in HPI and below Constitutional Reports body ache(s), Denies chills and Denies fever(s) Cardiovascular Denies chest pain, Denies irregular heart rhythm, Denies lightheadedness, Denies palpitations, Denies dyspnea, Denies dyspnea on exertion and Denies orthopnea Respiratory Denies cough, Denies hemoptysis, Denies dyspnea, Denies dyspnea on exertion and Denies wheezing Gastrointestinal Gastrointestinal: Denies abdominal pain, Denies change in bowel habits, Denies diarrhea and Denies nausea Musculoskeletal Denies back pain, Reports muscle weakness and Denies tingling (Right leg) Integumentary/Breasts Reports other (Right leg contusion and ecchymosis.) Neurologic Denies tingling (Right leg) and Reports other (Right leg paresthesia) Endocrine Denies palpitations Allergic/Immunologic Denies wheezing [facility] Medical History Major depressive disorder, recurrent episode, severe (Chronic) Organic sleep apnea, unspecified (Chronic) Hypersomnia (Chronic) Anxiety (Chronic) Paroxysmal atrial fibrillation (Chronic) Chronic pain syndrome (Chronic 11/08/16) Hypothyroidism (Chronic) Post traumatic stress disorder (PTSD) (Chronic) Sleep apnea (Chronic) Cognitive disorder (Chronic 04/24/14) Obesity with body mass index (BMI) of 30.0 to 39.9 (Chronic 12/06/14) Other iron deficiency anemia (Chronic 02/03/15) Chronic left shoulder pain (Chronic 01/20/16) Chronic obstructive pulmonary disease (Chronic 08/05/17) H/O renal calculi (Inactive) H/O migraine (Inactive) S/P ECT (electroconvulsive therapy) (Acute) Sarcoidosis (Chronic) Psoriasis (Chronic) Iron deficiency (Chronic) 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) Vitamin B12 deficiency (Chronic 02/19/11) History of stroke (Inactive) Narcotic dependence (Resolved 09/01/16) Patent foramen ovale (Resolved) Pneumonia (Resolved) Surgical History History of Cris-en-Y gastric bypass (Inactive ~2003) History of gastric bypass (Inactive ~2003) History of total shoulder replacement (Inactive ~12/2015) S/P lumbar laminectomy (Inactive ~10/2017) Family History Father No problems noted. Mother No problems noted. 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 yeimy/mormonism: Nondenominational travel history: over 6 months ago and other Smoking Status: Former smoker Tobacco: How many years used: 10 Smokeless tobacco user: other quit status: quit date established second hand exposure: Yes (Childhood) alcohol intake: current substance use type: does not use Exam Initial Vital Signs Initial Vital Signs: Vital Signs Temperature 97.9 F 03/28/18 02:37 Pulse Rate 102 H 03/28/18 02:37 Respiratory Rate 20 03/28/18 02:37 Blood Pressure 167/144 H 03/28/18 02:37 Pulse Oximetry 96 03/28/18 02:37 Const General: cooperative, well developed and acute distress Nutritional Appearance: well nourished Orientation: alert, awake and oriented x3 Chest Chest: normal inspection of the chest Resp Effort & Inspection: normal respiratory effort and able to speak in complete sentences Auscultation: clear to auscultation bilaterally, no rales, no rhonchi and no wheezes Cardio Rate: regular rate Rhythm: regular rhythm Heart Sounds: no click, no gallops, no murmurs and no rubs Pulses: normal peripheral pulses GI Inspection: non-distended Palpation: soft, no hepatosplenomegaly, No guarding and No tender Auscultation: normal bowel sounds Back/Spine/Pelvis Back: No back tenderness Skin General: no rashes or lesions noted and other (Right leg ecchymoses) Neuro General: alert, awake and oriented x3 Gait: antalgic Motor: muscle tone normal throughout Sensory Exam: other (Light touch sensation is normal in the right leg, but defer from the left. He has right lower extremity tingling.) Extrem General: full ROM, no calf tenderness and other (The right lobe has a palpable large hematoma in the anterior proximal thigh. There is adjacent edema. There is edema in the lower leg, including the ankle and foot. Homans sign is negative. The popliteal and dorsalis pedis pulses are normal.) Course Orders Ordered: ED Orders 03/28/18 03:30 Basic Metabolic Panel Stat Complete Blood Count AUTO DIFF Stat Lactate (Lactic Acid) Stat Partial Thromboplastin Time Stat Prothrombin Time INR Stat Discontinued Medications Heparin Sodium (Porcine) (Heparin Lock Port) 500 unit IV PRN PRN PRN Reason: Flush Last Admin: 03/28/18 05:03 Dose: 500 unit Hydromorphone HCl (Dilaudid) 2 mg IV NOW ONE Stop: 03/28/18 02:57 Last Admin: 03/28/18 03:32 Dose: 2 mg Vital Signs - 8 hr 03/28/18 02:37 03/28/18 05:04 Temperature 97.9 F Pulse Rate 102 H 85 Respiratory Rate 20 18 Blood Pressure 167/144 H 140/97 H Pulse Oximetry 96 98 MDM - Abdominal Pain Lab Data Result diagrams: 03/28/18 03:30 03/28/18 03:30 Lab Results 03/28/18 03/28/18 03/28/18 Range/Units 03:30 03:30 03:30 WBC 5.3 (4.5-11.0) X10^3/uL RBC 4.27 L (4.5-5.9) X10^6/uL Hgb 13.3 L (13.5-17.5) g/dL Hct 40.5 L (41-53) % MCV 94.8 (80-100) fL MCH 31.1 (26-34) PG MCHC 32.8 (30-36) % RDW 14.8 (11.6-14.8) % Plt Count 262 (150-400) X10^3/uL Neut % (Auto) 55.5 (50-75) % Lymph % (Auto) 31.1 (25-40) % [place] % (Auto) 11.5 (3-14) % Eos % (Auto) 1.2 L (2-4) % Baso % (Auto) 0.7 (0-2) % Neut # (Auto) 2900 (5494-4509) /uL PT 11.1 (10.1-12.7) SECONDS INR 1.0 (0.9-1.3) APTT 32 D (26.4-36.2) SECONDS Sodium 142 (137-145) mmol/L Potassium 3.9 (3.4-5.1) mmol/L Chloride 105 (98-107) mmol/L Carbon Dioxide 29 (22-32) mmol/L BUN 15 (9-20) mg/dL Creatinine 0.80 (0.66-1.25) mg/dL Estimated GFR > 60.0 (>60) mL/min BUN/Creatinine Ratio 18.8 (6-22) Glucose 85 (80-110) mg/dL Lactate (0.7-2.1) mmol/L Calcium 9.2 (8.4-10.2) mg/dL 03/28/18 Range/Units 03:30 WBC (4.5-11.0) X10^3/uL RBC (4.5-5.9) X10^6/uL Hgb (13.5-17.5) g/dL Hct (41-53) % MCV (80-100) fL MCH (26-34) PG MCHC (30-36) % RDW (11.6-14.8) % Plt Count (150-400) X10^3/uL Neut % (Auto) (50-75) % Lymph % (Auto) (25-40) % P[place] % (Auto) (3-14) % Eos % (Auto) (2-4) % Baso % (Auto) (0-2) % Neut # (Auto) (3378-5548) /uL PT (10.1-12.7) SECONDS INR (0.9-1.3) APTT (26.4-36.2) SECONDS Sodium (137-145) mmol/L Potassium (3.4-5.1) mmol/L Chloride (98-107) mmol/L Carbon Dioxide (22-32) mmol/L BUN (9-20) mg/dL Creatinine (0.66-1.25) mg/dL Estimated GFR (>60) mL/min BUN/Creatinine Ratio (6-22) Glucose (80-110) mg/dL Lactate 0.7 (0.7-2.1) mmol/L Calcium (8.4-10.2) mg/dL MDM Narrative Medical decision making narrative: From his evaluation there is no evidence of active bleeding. There is no evidence of infection. His pain has been controlled quite well from the Dilaudid injection. He feels he is rating go home. Discharge Plan Departure Patient Disposition: Home Clinical Impression: Leg pain, right, Hematoma Discharge Date/Time: 03/28/18 05:10 Interventions: ED Discharge Assessment Last Done: 03/28/18 05:04 Instructions: DI for Hematoma (Bruise) Activity Restrictions/Additional Instructions: Take your pain medications as prescribed when needed. Elevate the leg as much as possible. Apply warm compresses. Follow-up with her doctor for ongoing pain management. Return here when necessary. Prescriptions: No Action apixaban [Eliquis] 5 mg tablet 5 mg PO BID RF: 0 clonazepam 2 mg tablet 2 mg PO TID Qty: 21 RF: 0 fluticasone-vilanterol [Breo Ellipta] 200 MCG/25 MCG blister with device 1 puff INH DAILY Qty: 0 RF: 0 montelukast [Singulair] 10 MG tablet 10 mg PO BEDTIME Qty: 0 RF: 0 calcipotriene [Dovonex] 0.005 % cream 1 gm Topical BID Qty: 0 RF: 0 ipratropium-albuterol [Combivent Respimat] 4 GM mist See Label Instructions .ROUTE .COMPLEX MDD 6 Qty: 0 RF: 0 albuterol sulfate 1.25 MG/3 ML solution for nebulization 1.25 mg INH Q4HP PRN (Reason: Shortness Of Breath) Qty: 0 RF: 0 sumatriptan [Imitrex] 20 MG spray,non-aerosol 20 mg Intranasal SEE INSTRUCTIONS Qty: 90 RF: 3 prochlorperazine maleate 10 mg tablet 10 mg PO Q6H PRN (Reason: Nausea) Qty: 120 RF: 0 cyclobenzaprine 10 mg tablet 10 mg PO TID PRN (Reason: muscle spasm) Qty: 30 RF: 0 duloxetine [Cymbalta] 60 mg capsule,delayed release(DR/EC) 60 mg PO QNOON Qty: 90 RF: 1 liothyronine [Cytomel] 25 mcg tablet 12.5 mcg PO DAILY Qty: 45 RF: 3 atorvastatin [Lipitor] 10 mg tablet 10 mg PO BEDTIME Qty: 90 RF: 0 omeprazole 40 mg capsule,delayed release(DR/EC) 40 mg PO QNOON Qty: 90 RF: 3 metoprolol tartrate 25 mg tablet 25 mg PO BID Qty: 180 RF: 3 eszopiclone 3 mg tablet 3 mg PO BEDTIME Qty: 20 RF: 1 oxycodone-acetaminophen [Percocet] 10-325 mg tablet 1 tab PO Q4-6H PRN (Reason: pain) Qty: 20 RF: 0 lidocaine [Lidoderm] 5 % adhesive patch,medicated 1 patch TOP .COMPLEX Qty: 15 RF: 3 rizatriptan 10 mg tablet,disintegrating See Label Instructions .ROUTE .COMPLEX Qty: 30 RF: 4 albuterol sulfate [Ventolin HFA] 90 MCG/PUFF HFA aerosol inhaler 1 puff INH SEE INSTRUCTIONS RF: 0 lamotrigine 200 mg tablet 200 mg PO BEDTIME RF: 0 desonide 0.05 % cream 1 applic Topical PRN PRN (Reason: Inflammation) RF: 0 ketoconazole 2 % shampoo 1 applic Topical DAILY PRN (Reason: Skin Irritation) RF: 0 clobetasol 0.05 % ointment 1 applic Topical SUSA RF: 0 levothyroxine 100 MCG tablet 100 mcg PO QAM RF: 0 tamsulosin [Flomax] 0.4 mg capsule 0.4 mg PO QNOON RF: 0 nortriptyline 10 mg capsule 10 mg PO BEDTIME RF: 0 sumatriptan succinate 6 MG/0.5 ML pen injector 6 mg SQ PRN MDD 2 PRN (Reason: Migraine Headache) RF: 0 bupropion HCl 300 mg tablet extended release 24 hr 300 mg PO QNOON RF: 0 multivitamin Tablet 1 tab PO DAILY RF: 0 calcium carbonate 390 mg calcium (1,000 mg) Tablet 1,000 mg PO DAILY RF: 0 Vitamin B-12 1 tab PO DAILY RF: 0 oxycodone-acetaminophen [Percocet] 10-325 mg tablet 1 tab PO Q6H PRN (Reason: pain) Qty: 20 RF: 0
[2018-03-28] MEDS: HYDROMORPHONE 1 MG INJ 2 MG IV (03:32)
[2018-03-28 03:47] LABS: Add Manual Diff / Slide Review NO; Basophils Percent Auto 0.7 % (0-2); Eosinophils Percent Auto 1.2 % (2-4); Hematocrit 40.5 % (41-53); Hemoglobin 13.3 g/dL (13.5-17.5); Lymphocytes Percent Auto 31.1 % (25-40); Mean Corpuscular HGB Conc 32.8 % (30-36); Mean Corpuscular Hemoglobin 31.1 PG (26-34); Mean Corpuscular Volume 94.8 fL (80-100); Monocytes Percent Auto 11.5 % (3-14); Neutrophils Absolute Auto 2900 /uL (1500-7000); Neutrophils Percent Auto 55.5 % (50-75); Platelet Count 262 X10^3/uL (150-400); Red Blood Cell Count 4.27 X10^6/uL (4.5-5.9); Red Cell Distribution Width 14.8 % (11.6-14.8); White Blood Cell Count 5.3 X10^3/uL (4.5-11.0)
[2018-03-28 03:51] LABS: Prothrombin Time 11.1 SECONDS (10.1-12.7)
[2018-03-28 03:54] LABS: PTT Partial Thromboplastin Tim 32 SECONDS (26.4-36.2)
[2018-03-28 03:55] LABS: BUN Creatinine Ratio 18.8 (6-22); Blood Urea Nitrogen 15 mg/dL (9-20); Calcium 9.2 mg/dL (8.4-10.2); Carbon Dioxide 29 mmol/L (22-32); Chloride 105 mmol/L (98-107); Estimated Glomerular Filt Rate > 60.0 mL/min (>60); Glucose 85 mg/dL (80-110); HEMOLYSIS < 15 (0-50); Lactate (Lactic Acid) 0.7 mmol/L (0.7-2.1); Potassium 3.9 mmol/L (3.4-5.1); Sodium 142 mmol/L (137-145)
[2018-03-28 05:04] VITALS: BP 140/97; PULSE 85; RESP 18; O2SAT 98
== END 2018-03-28 05:10 | disposition home or self-care (01) ==
PROVIDERS: Emergency Provider Emergency Medicine; Family Provider Internal Medicine; PCP Internal Medicine
DX: S80.11XA Contusion of right lower leg, initial encounter (principal); M79.604 Pain in right leg; W22.8XXA Striking against or struck by other objects, initial encounter
CPT/HCPCS: 36591; 80048; 83605; 85025; 85610; 85730; 96374; 96375; 99282; 99284; J1170; J1642

== ENCOUNTER 2018-03-31 08:16 | Emergency (ER) | payer MEDICARE, SELFPAY ==
[2018-03-31 09:13] VITALS: BP 153/91; PULSE 83; RESP 18; TEMP 36.7; O2SAT 97; BMI 35.2
--- NOTE | 2018-03-31 10:49 | ED_ITS ---
HPI - Extremity Injury (Lower) General Chief Complaint: Extremity Injury, Lower Stated Complaint: RIGHT LEG PAIN Time Seen by Provider: 03/31/18 10:23 Source: patient Limitations: no limitations History of Present Illness HPI Narrative: 63-year-old male who comes in with complaint of right lower extremity pain. Patient had a large heavy 200 lb bike rack fall in his right leg. Um I initially saw him after the injury. At that time he had a very small peripheral active bleed. He was on Eliquis. He ultimately followed up Um and had repeat imaging which showed the bleeding had stopped he continues to have pain, he states he is not taking anything regularly at home but is requesting some narcotic pain medication here. He states that he has had good pulses he has had ultrasounds of his lower extremities as well as CT scans twice which have all showed improvement of the bleeding. Um and no more further enlargement of the hematoma. He states he has not had any new swelling, he is not having any new numbness or tingling. He states the pain radiates down his leg. He has not had any fevers, redness or signs of infection. Patient did stop his Eliquis on the recommendation of his crusher and blender operator and has been off it for 9 days. He normally takes this because of multiple strokes. Related Data Home Medications Medication Instructions Recorded Confirmed fluticasone-vilanterol [Breo 1 puff INH DAILY #0 12/03/16 03/31/18 Ellipta] calcipotriene [Dovonex] 1 gm TOPICAL BID #0 02/04/17 03/31/18 montelukast [Singulair] 10 mg PO BEDTIME #0 02/04/17 03/31/18 ipratropium-albuterol [Combivent See Label Instructions .ROUTE 04/15/17 03/31/18 Respimat] .COMPLEX #0 MDD 6 albuterol sulfate 1.25 mg INH Q4HP PRN #0 05/24/17 03/31/18 albuterol sulfate [Ventolin HFA] 1 puff INH SEE INSTRUCTIONS 08/22/17 03/31/18 Vitamin B-12 1 tab PO DAILY 02/21/18 03/31/18 bupropion HCl 300 mg PO QNOON 02/21/18 03/31/18 clobetasol 1 applic TOPICAL SUSA 02/21/18 03/31/18 desonide 1 applic TOPICAL PRN PRN 02/21/18 03/31/18 ketoconazole 1 applic TOPICAL DAILY PRN 02/21/18 03/31/18 levothyroxine 100 mcg PO QAM 02/21/18 03/31/18 multivitamin 1 tab PO DAILY 02/21/18 03/31/18 nortriptyline 10 mg PO BEDTIME 02/21/18 03/31/18 sumatriptan succinate 6 mg SQ PRN PRN MDD 2 02/21/18 03/31/18 tamsulosin [Flomax] 0.4 mg PO QNOON 02/21/18 03/31/18 lamotrigine 200 mg PO BEDTIME 03/14/18 03/31/18 calcium citrate 250 mg tablet 500 mg PO BID tab 03/28/18 03/31/18 Previous Rx's Medication Instructions Recorded sumatriptan [Imitrex] 20 mg INTRANASAL SEE INSTRUCTIONS 06/15/17 #90 dose prochlorperazine maleate 10 mg 10 mg PO Q6H PRN #120 tab 12/13/17 tablet cyclobenzaprine 10 mg tablet 10 mg PO TID PRN #30 tab 01/09/18 lidocaine 5 % topical patch 1 patch TOP .COMPLEX #15 each 01/17/18 duloxetine 60 mg capsule,delayed 60 mg PO QNOON #90 cap 02/10/18 release atorvastatin 10 mg tablet 10 mg PO BEDTIME #90 tab 03/09/18 eszopiclone 3 mg tablet 3 mg PO BEDTIME #20 tab 03/09/18 liothyronine 25 mcg tablet 12.5 mcg PO DAILY #45 tab 03/09/18 metoprolol tartrate 25 mg tablet 25 mg PO BID #180 tab 03/09/18 clonazepam 2 mg tablet 2 mg PO TID #21 tab 03/15/18 rizatriptan 10 mg disintegrating See Label Instructions .ROUTE 03/17/18 tablet .COMPLEX #30 tab Allergies Allergy/AdvReac Type Severity Reaction Status Date / Time doxycycline [DOXYCYCLINE] Allergy Mild ITCHING Verified 03/28/18 10:45 ketorolac [KETOROLAC] Allergy Unknown Verified 03/28/18 10:45 NSAIDS (Non-Steroidal AdvReac Unknown TO AVOID Verified 03/28/18 10:45 Anti-Inflamma R/T [NSAIDS (NON-STEROIDAL GASTRIC ANTI-INFLAMMA] BYPASS Review of Systems Review of Systems All systems reviewed & are unremarkable except as noted in HPI and below Constitutional Denies chills and Denies fever(s) Musculoskeletal Reports as per HPI, Denies muscle weakness, Denies numbness, Denies tingling and Reports other (right leg pain, hematoma) Integumentary/Breasts Denies unusual bruising (bruising resolving) Neurologic Denies numbness and Denies tingling [facility] Medical History Major depressive disorder, recurrent episode, severe (Chronic) Organic sleep apnea, unspecified (Chronic) Hypersomnia (Chronic) Anxiety (Chronic) Paroxysmal atrial fibrillation (Chronic) Chronic pain syndrome (Chronic 11/08/16) Hypothyroidism (Chronic) Post traumatic stress disorder (PTSD) (Chronic) Sleep apnea (Chronic) Cognitive disorder (Chronic 04/24/14) Obesity with body mass index (BMI) of 30.0 to 39.9 (Chronic 12/06/14) Other iron deficiency anemia (Chronic 02/03/15) Chronic left shoulder pain (Chronic 01/20/16) Chronic obstructive pulmonary disease (Chronic 08/05/17) H/O renal calculi (Inactive) H/O migraine (Inactive) S/P ECT (electroconvulsive therapy) (Acute) Sarcoidosis (Chronic) Psoriasis (Chronic) Iron deficiency (Chronic) 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) Vitamin B12 deficiency (Chronic 02/19/11) History of stroke (Inactive) Narcotic dependence (Resolved 09/01/16) Patent foramen ovale (Resolved) Pneumonia (Resolved) Surgical History History of Cris-en-Y gastric bypass (Inactive ~2003) History of gastric bypass (Inactive ~2003) History of total shoulder replacement (Inactive ~12/2015) S/P lumbar laminectomy (Inactive ~10/2017) Social History marital status: number of children: 3 household members: spouse lives independently: Yes caregiver/support person: No housing: house pets and animals: Yes education level: college occupational status: other 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 yeimy/yazidi: Spiritism travel history: over 6 months ago and other Smoking Status: Former smoker Tobacco: How many years used: 10 Smokeless tobacco user: other quit status: quit date established second hand exposure: Yes (Childhood) alcohol intake: current substance use type: does not use Exam Narrative Exam Narrative: GENERAL: Alert and oriented x three, obese male in moderate distress. HEENT: Head normocephalic, atraumatic, EOMI, pupils reactive, face symmetric, moist mucous membranes NECK: Supple, full range of motion CARDIOVASCULAR: Regular rate and rhythm without murmurs, rubs or gallops. RESPIRATORY: Breath sounds equal bilaterally, no wheezes rales or rhonchi. ABDOMEN: Soft, nontender. Normoactive bowel sounds all 4 quadrants. No guarding or rebound, rigidity, no mass : No CVA tenderness EXTREMITIES: Normal range of motion, no clubbing. Patient has a large hematoma in the right medial thigh, it is hard to palpation. There is moderate tenderness. Patient does not have any significant bruising at this time and I saw him initially with his injury and it is much improved in coloration. Patient does not have any significant edema in the lower extremity. He has full range of motion with normal muscle strength. He does have pulses in the right lower extremity. Normal sensation. Neurovascularly intact NEUROLOGICAL: Cranial nerves II through XII grossly intact. Moving all extremities SKIN: Warm, dry, no petechiae, no rashes or lesions. Initial Vital Signs Initial Vital Signs: Vital Signs Temperature 98.1 F 03/31/18 09:13 Pulse Rate 83 03/31/18 09:13 Respiratory Rate 18 03/31/18 09:13 Blood Pressure 153/91 H 03/31/18 09:13 Pulse Oximetry 97 03/31/18 09:13 Course Orders Ordered: Discontinued Medications Hydromorphone HCl (Dilaudid) 2 mg IV NOW ONE Stop: 03/31/18 10:50 Last Admin: 03/31/18 11:02 Dose: 2 mg Vital Signs - 8 hr 03/31/18 11:15 03/31/18 11:48 Pulse Rate 75 72 Respiratory Rate 14 14 Blood Pressure [Left Arm] 140/84 140/80 Pulse Oximetry 98 MDM - Extremity Injury (Lower) MDM Narrative Medical decision making narrative: Patient has acute on chronic pain in his right lower extremity after having a large hematoma from having a a blunt injury. Patient hematoma sounds like it is very slowly resolving. He is not taking anything regularly for pain and we discussed trying Tylenol as he is not supposed to have NSAIDs. Patient is open to this. Um he is requesting pain medication at this time as he feels it slid up. He does not feel like there is any new signs of infection, he has had any new swelling, he has not had any new numbness or tingling or difficulty with movement that is new. Patient has had multiple evaluations that have shown that the bleeding has stopped and he has been off his Eliquis for 9 days. My concern for compartment syndrome is low, he has no other signs of vascular injury that is new or clotting. Discharge Plan Departure Patient Disposition: Home Clinical Impression: Leg pain, right, Traumatic hematoma of right thigh Discharge Date/Time: 03/31/18 12:01 Interventions: ED Discharge Assessment Last Done: 03/31/18 12:00 Instructions: DI for Leg Pain Activity Restrictions/Additional Instructions: Follow-up with your crusher and blender operator to discuss when you should restart her Eliquis. I would suggest not waiting more than 2 weeks from stopping your medication. You may take Tylenol as needed for pain, the maximum dose is 1000 mg every 8 hr as needed. Return to the emergency department for rapidly worsening pain, persistent pain, new numbness, new weakness, loss of sensation, rapidly increasing size of the hematoma or new bruising or discoloration such as redness, blueness or pallor. Prescriptions: No Action clonazepam 2 mg tablet 2 mg PO TID Qty: 21 RF: 0 fluticasone-vilanterol [Breo Ellipta] 200 MCG/25 MCG blister with device 1 puff INH DAILY Qty: 0 RF: 0 montelukast [Singulair] 10 MG tablet 10 mg PO BEDTIME Qty: 0 RF: 0 calcipotriene [Dovonex] 0.005 % cream 1 gm Topical BID Qty: 0 RF: 0 ipratropium-albuterol [Combivent Respimat] 4 GM mist See Label Instructions .ROUTE .COMPLEX MDD 6 Qty: 0 RF: 0 albuterol sulfate 1.25 MG/3 ML solution for nebulization 1.25 mg INH Q4HP PRN (Reason: Shortness Of Breath) Qty: 0 RF: 0 sumatriptan [Imitrex] 20 MG spray,non-aerosol 20 mg Intranasal SEE INSTRUCTIONS Qty: 90 RF: 3 prochlorperazine maleate 10 mg tablet 10 mg PO Q6H PRN (Reason: Nausea) Qty: 120 RF: 0 cyclobenzaprine 10 mg tablet 10 mg PO TID PRN (Reason: muscle spasm) Qty: 30 RF: 0 duloxetine [Cymbalta] 60 mg capsule,delayed release(DR/EC) 60 mg PO QNOON Qty: 90 RF: 1 liothyronine [Cytomel] 25 mcg tablet 12.5 mcg PO DAILY Qty: 45 RF: 3 atorvastatin [Lipitor] 10 mg tablet 10 mg PO BEDTIME Qty: 90 RF: 0 metoprolol tartrate 25 mg tablet 25 mg PO BID Qty: 180 RF: 3 eszopiclone 3 mg tablet 3 mg PO BEDTIME Qty: 20 RF: 1 lidocaine [Lidoderm] 5 % adhesive patch,medicated 1 patch TOP .COMPLEX Qty: 15 RF: 3 rizatriptan 10 mg tablet,disintegrating See Label Instructions .ROUTE .COMPLEX Qty: 30 RF: 4 calcium citrate 250 mg calcium tablet 500 mg PO BID RF: 0 albuterol sulfate [Ventolin HFA] 90 MCG/PUFF HFA aerosol inhaler 1 puff INH SEE INSTRUCTIONS RF: 0 lamotrigine 200 mg tablet 200 mg PO BEDTIME RF: 0 desonide 0.05 % cream 1 applic Topical PRN PRN (Reason: Inflammation) RF: 0 ketoconazole 2 % shampoo 1 applic Topical DAILY PRN (Reason: Skin Irritation) RF: 0 clobetasol 0.05 % ointment 1 applic Topical SUSA RF: 0 levothyroxine 100 MCG tablet 100 mcg PO QAM RF: 0 tamsulosin [Flomax] 0.4 mg capsule 0.4 mg PO QNOON RF: 0 nortriptyline 10 mg capsule 10 mg PO BEDTIME RF: 0 sumatriptan succinate 6 MG/0.5 ML pen injector 6 mg SQ PRN MDD 2 PRN (Reason: Migraine Headache) RF: 0 bupropion HCl 300 mg tablet extended release 24 hr 300 mg PO QNOON RF: 0 multivitamin Tablet 1 tab PO DAILY RF: 0 Vitamin B-12 1 tab PO DAILY RF: 0 Referrals: Eleazar Armstrong MD [Primary Care Provider] -
[2018-03-31] MEDS: HYDROMORPHONE 1 MG INJ 2 MG IV (11:02)
[2018-03-31 11:15] VITALS: BP 140/84; PULSE 75; RESP 14; O2SAT 98
[2018-03-31 11:48] VITALS: BP 140/80; PULSE 72; RESP 14
--- NOTE | 2018-03-31 11:49 | PC.NURSE ---
Dopper pulses easily found on right foot. Marked w/ maritza.
== END 2018-03-31 12:01 | disposition home or self-care (01) ==
PROVIDERS: Emergency Provider Emergency Medicine; Family Provider Internal Medicine; PCP Internal Medicine
DX: S70.11XA Contusion of right thigh, initial encounter (principal); W23.0XXA Caught, crushed, jammed, or pinched between moving objects, initial encounter
CPT/HCPCS: 96374; 99282; 99284; J1170

== ENCOUNTER 2018-04-02 05:02 | Emergency (ER) | payer MEDICARE, SELFPAY ==
[2018-04-02 05:12] VITALS: BP 162/88; PULSE 97; RESP 18; TEMP 36.4; O2SAT 98; BMI 34.4
--- NOTE | 2018-04-02 05:29 | PC.NURSE ---
After patient was told that he was not getting any narcotic pain meds and denying his tylenol, a loud noise from patients room was heard and the patient was found on the floor. Patient reports rolled over in the bed and slid out landing on his right side. He denies hitting his head. Nursing staff and Dr. Pradhan responded. patient was reassessed and patient helped into a recliner chair. No obvious injuries. Patient refused X-rays and that nothing is broken and he wants to go home. Provider aware.
--- NOTE | 2018-04-02 05:35 | ED.FALL ---
HPI - Fall General Chief Complaint: Fall Stated Complaint: fall at home, right leg and lower back pain Time Seen by Provider: 04/02/18 05:10 Source: patient Mode of arrival: ambulatory Limitations: no limitations History of Present Illness HPI Narrative: Patient is a 63-year-old male presenting with right leg pain. Today he says he got up out of bed he had a headache when to take his Imitrex when he was going back to bed he fell down he thinks he hit his leg on a metal bar. No head injury or loss of consciousness. His he was previously on Eliquis however due to recent injury was taken off. His he has had multiple ED visits over the last month for right leg pain. Initially started with quite a large hematoma while on Eliquis after a bike rack fell on him. He is had subsequent visits afterwards. According to records he has been given multiple narcotics from multiple EGDs and multiple providers over the last 1 month. He does have a history of substance abuse he was clean for some time but PCP thinks that this injury may have caused him to slip back into dependence. Patient states that he ran out of his Percocet, and is requesting something more for pain. Related Data Home Medications Medication Instructions Recorded Confirmed fluticasone-vilanterol [Breo 1 puff INH DAILY #0 12/03/16 03/31/18 Ellipta] calcipotriene [Dovonex] 1 gm TOPICAL BID #0 02/04/17 03/31/18 montelukast [Singulair] 10 mg PO BEDTIME #0 02/04/17 03/31/18 ipratropium-albuterol [Combivent See Label Instructions .ROUTE 04/15/17 03/31/18 Respimat] .COMPLEX #0 MDD 6 albuterol sulfate 1.25 mg INH Q4HP PRN #0 05/24/17 03/31/18 albuterol sulfate [Ventolin HFA] 1 puff INH SEE INSTRUCTIONS 08/22/17 03/31/18 Vitamin B-12 1 tab PO DAILY 02/21/18 03/31/18 bupropion HCl 300 mg PO QNOON 02/21/18 03/31/18 clobetasol 1 applic TOPICAL SUSA 02/21/18 03/31/18 desonide 1 applic TOPICAL PRN PRN 02/21/18 03/31/18 ketoconazole 1 applic TOPICAL DAILY PRN 02/21/18 03/31/18 levothyroxine 100 mcg PO QAM 02/21/18 03/31/18 multivitamin 1 tab PO DAILY 02/21/18 03/31/18 nortriptyline 10 mg PO BEDTIME 02/21/18 03/31/18 sumatriptan succinate 6 mg SQ PRN PRN MDD 2 02/21/18 03/31/18 tamsulosin [Flomax] 0.4 mg PO QNOON 02/21/18 03/31/18 lamotrigine 200 mg PO BEDTIME 03/14/18 03/31/18 calcium citrate 250 mg tablet 500 mg PO BID tab 03/28/18 03/31/18 Previous Rx's Medication Instructions Recorded sumatriptan [Imitrex] 20 mg INTRANASAL SEE INSTRUCTIONS 06/15/17 #90 dose prochlorperazine maleate 10 mg 10 mg PO Q6H PRN #120 tab 12/13/17 tablet cyclobenzaprine 10 mg tablet 10 mg PO TID PRN #30 tab 01/09/18 lidocaine 5 % topical patch 1 patch TOP .COMPLEX #15 each 01/17/18 duloxetine 60 mg capsule,delayed 60 mg PO QNOON #90 cap 02/10/18 release atorvastatin 10 mg tablet 10 mg PO BEDTIME #90 tab 03/09/18 eszopiclone 3 mg tablet 3 mg PO BEDTIME #20 tab 03/09/18 liothyronine 25 mcg tablet 12.5 mcg PO DAILY #45 tab 03/09/18 metoprolol tartrate 25 mg tablet 25 mg PO BID #180 tab 03/09/18 clonazepam 2 mg tablet 2 mg PO TID #21 tab 03/15/18 rizatriptan 10 mg disintegrating See Label Instructions .ROUTE 03/17/18 tablet .COMPLEX #30 tab Allergies Allergy/AdvReac Type Severity Reaction Status Date / Time doxycycline [DOXYCYCLINE] Allergy Mild ITCHING Verified 03/28/18 10:45 ketorolac [KETOROLAC] Allergy Unknown Verified 03/28/18 10:45 NSAIDS (Non-Steroidal AdvReac Unknown TO AVOID Verified 03/28/18 10:45 Anti-Inflamma R/T [NSAIDS (NON-STEROIDAL GASTRIC ANTI-INFLAMMA] BYPASS Review of Systems Review of Systems All systems reviewed & are unremarkable except as noted in HPI and below Constitutional Denies chills, Denies fever(s), Denies lethargy and Denies weakness Eyes Denies change in vision, Denies eye discharge, Denies irritation and Denies loss of vision Cardiovascular Denies chest pain, Denies irregular heart rhythm, Denies lightheadedness, Denies palpitations and Denies orthopnea Gastrointestinal Gastrointestinal: Denies abdominal pain, Denies change in bowel habits, Denies diarrhea, Denies nausea and Denies vomiting Musculoskeletal Reports as per HPI Integumentary/Breasts Denies pruritus, Denies erythema, Denies rash and Denies wounds Neurologic Denies loss of vision and Denies weakness Endocrine Denies palpitations Exam Initial Vital Signs Initial Vital Signs: Vital Signs Temperature 97.6 F 04/02/18 05:12 Pulse Rate 97 H 04/02/18 05:12 Respiratory Rate 18 04/02/18 05:12 Blood Pressure 162/88 H 04/02/18 05:12 Pulse Oximetry 98 04/02/18 05:12 GENERAL: Moaning appears in pain HEENT: Head atraumatic,EOMI, pupils reactive, neck is supple CARDIOVASCULAR: Regular rate and rhythm without murmurs, rubs or gallops. RESPIRATORY: Breath sounds equal bilaterally, no wheezes rales or rhonchi. ABDOMEN: Soft, nontender. Normoactive bowel sounds all 4 quadrants. No guarding or rebound. BACK: No vertebral tenderness no step-offs no sign of trauma, he does have tenderness in the lumbar area : No CVA tenderness EXTREMITIES: Normal range of motion, no clubbing or edema. Neurovascularly intact -extreme pain to light touch on right lower all leg. NEUROLOGICAL: Alert and oriented x4.Normal gait and speech. Cranial nerves II through XII grossly intact. SKIN: Healing hematoma of right medial thigh. Chronic healing wound on right lower leg no significant erythema no gross pus. 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 yeimy/oriental orthodox: Zoroastrianism travel history: over 6 months ago and other Smoking Status: Former smoker Tobacco: How many years used: 10 Smokeless tobacco user: other quit status: quit date established second hand exposure: Yes (Childhood) alcohol intake: current substance use type: does not use Course Orders Ordered: ED Orders 04/02/18 05:20 XR ankle RT min 3V Stat XR foot RT min 3V Stat XR lumbar spine 2-3V Stat 04/02/18 05:34 XR pelvis 1-2V Stat Discontinued Medications Acetaminophen (Tylenol) 975 mg PO NOW ONE Stop: 04/02/18 05:21 Last Admin: 04/02/18 05:33 Dose: Not Given Vital Signs - 8 hr 04/02/18 05:12 Temperature 97.6 F Pulse Rate 97 H Respiratory Rate 18 Blood Pressure 162/88 H Pulse Oximetry 98 MDM - Fall MDM Narrative Medical decision making narrative: I reviewed patient's most recent reports. Most recent PCP report on 03/28/2018 said that he has had 95 Percocet of varying strength from multiple different providers since the 14 of March and multiple ER visits. Patient plainly states that he is out of his Percocet and needs something for pain. I have discussed with him that he will not be getting narcotics as a prescription or as a shot while in the ED. I have ordered x-rays of the patient. While waiting for x-rays patient rolled out of bed onto his right side. No head injury no loss of consciousness. It was heard by ED staff and immediately responded to. Patient was able to assist with himself getting up off the floor. He has no sign of trauma no lacerations no contusions he is moving all extremities Patient no longer wanted any x-rays, and requested to leave. The patient is clinically sober, free from distracting injury, appears to have intact insight, judgment and reason. Does not meet criteria for involuntary hospitalization. Patient has the capacity to make decisions. Discharge Plan Departure Patient Disposition: Home Clinical Impression: Chronic pain of right lower extremity Instructions: Peripheral Neuropathy, DI for Chronic Pain -- Adult Activity Restrictions/Additional Instructions: You declined x-rays today even after your fall in the emergency department -if you should use that you want x-ray issue may return at any time -recommend talking with your PCP in regards to starting gabapentin, however this is a medication glucose a take on a regular basis and cannot stop abruptly -please continue all medications as previously prescribed -You may return to the emergency department if you should have any new or worsening symptoms -please contact your PCP in next 2-3 days to schedule follow-up appointment Prescriptions: No Action clonazepam 2 mg tablet 2 mg PO TID Qty: 21 RF: 0 fluticasone-vilanterol [Breo Ellipta] 200 MCG/25 MCG blister with device 1 puff INH DAILY Qty: 0 RF: 0 montelukast [Singulair] 10 MG tablet 10 mg PO BEDTIME Qty: 0 RF: 0 calcipotriene [Dovonex] 0.005 % cream 1 gm Topical BID Qty: 0 RF: 0 ipratropium-albuterol [Combivent Respimat] 4 GM mist See Label Instructions .ROUTE .COMPLEX MDD 6 Qty: 0 RF: 0 albuterol sulfate 1.25 MG/3 ML solution for nebulization 1.25 mg INH Q4HP PRN (Reason: Shortness Of Breath) Qty: 0 RF: 0 sumatriptan [Imitrex] 20 MG spray,non-aerosol 20 mg Intranasal SEE INSTRUCTIONS Qty: 90 RF: 3 prochlorperazine maleate 10 mg tablet 10 mg PO Q6H PRN (Reason: Nausea) Qty: 120 RF: 0 cyclobenzaprine 10 mg tablet 10 mg PO TID PRN (Reason: muscle spasm) Qty: 30 RF: 0 duloxetine [Cymbalta] 60 mg capsule,delayed release(DR/EC) 60 mg PO QNOON Qty: 90 RF: 1 liothyronine [Cytomel] 25 mcg tablet 12.5 mcg PO DAILY Qty: 45 RF: 3 atorvastatin [Lipitor] 10 mg tablet 10 mg PO BEDTIME Qty: 90 RF: 0 metoprolol tartrate 25 mg tablet 25 mg PO BID Qty: 180 RF: 3 eszopiclone 3 mg tablet 3 mg PO BEDTIME Qty: 20 RF: 1 lidocaine [Lidoderm] 5 % adhesive patch,medicated 1 patch TOP .COMPLEX Qty: 15 RF: 3 rizatriptan 10 mg tablet,disintegrating See Label Instructions .ROUTE .COMPLEX Qty: 30 RF: 4 calcium citrate 250 mg calcium tablet 500 mg PO BID RF: 0 albuterol sulfate [Ventolin HFA] 90 MCG/PUFF HFA aerosol inhaler 1 puff INH SEE INSTRUCTIONS RF: 0 lamotrigine 200 mg tablet 200 mg PO BEDTIME RF: 0 desonide 0.05 % cream 1 applic Topical PRN PRN (Reason: Inflammation) RF: 0 ketoconazole 2 % shampoo 1 applic Topical DAILY PRN (Reason: Skin Irritation) RF: 0 clobetasol 0.05 % ointment 1 applic Topical SUSA RF: 0 levothyroxine 100 MCG tablet 100 mcg PO QAM RF: 0 tamsulosin [Flomax] 0.4 mg capsule 0.4 mg PO QNOON RF: 0 nortriptyline 10 mg capsule 10 mg PO BEDTIME RF: 0 sumatriptan succinate 6 MG/0.5 ML pen injector 6 mg SQ PRN MDD 2 PRN (Reason: Migraine Headache) RF: 0 bupropion HCl 300 mg tablet extended release 24 hr 300 mg PO QNOON RF: 0 multivitamin Tablet 1 tab PO DAILY RF: 0 Vitamin B-12 1 tab PO DAILY RF: 0
--- NOTE | 2018-04-02 05:40 | PC.NURSE ---
patient refused Tylenol and I charted not given since he did not want to take the medication. patient then states that he would like the tylenol. The medication had to be re ordered since the tylenol that was ordered on the JUN has already been charted not given. provider aware and no new orders at this time.
[2018-04-02] MEDS: ACETAMINOPHEN 325 MG TABLET 975 MG PO (05:43)
[2018-04-02 05:56] VITALS: BP 155/88; PULSE 89; RESP 16; O2SAT 95
== END 2018-04-02 05:55 | disposition home or self-care (01) ==
PROVIDERS: Emergency Provider Emergency Medicine; Family Provider Internal Medicine; PCP Internal Medicine
DX: M79.604 Pain in right leg (principal); G89.29 Other chronic pain
CPT/HCPCS: 99282; 99283

== ENCOUNTER → 2018-06-07 09:34 | Outpatient (CLI) | payer MEDICARE, SELFPAY ==
--- NOTE | 2018-06-07 | DI.RAD.S_ITS ---
PROCEDURE: [place] SHOULDER INJECTION MR/CT LT INDICATIONS: ACUTE PAIN OF LEFT SHOULDER TECHNIQUE: The indications, alternatives, benefits, risks, and complications of the procedure were explained to the patient. Written informed consent was obtained and placed in the chart. The shoulder was examined fluoroscopically and a site for needle placement chosen for entry into the glenohumeral joint from an anterior approach. A left shoulder arthroplasty with prosthetic right proximal humeral head noted. The skin was prepped and draped in a sterile fashion, and 1% lidocaine infiltrated from skin down to joint capsule. A spinal needle was inserted into the glenohumeral joint, and a small amount of iodinated contrast media injected to confirm intra-articular placement of the needle tip. This was followed by approximately 15 mL of iodinated contrast. The needle was removed and a dressing was applied. The patient was given postprocedural instructions and sent to the CT suite for imaging. FINDINGS: A single fluoroscopic spot image demonstrates intra-articular location of injected iodinated contrast. IMPRESSION: Successful fluoroscopically guided administration of iodinated contrast solution into the left shoulder joint for CT arthrogram. Dictated by: Suresh Alcazar M.D. on 06/07/2018 at 13:38 Approved by: Suresh Alcazar M.D. on 06/07/2018 at 13:42
--- NOTE | 2018-06-07 | DI.CT.S_ITS ---
PROCEDURE: CT UE LT W CON INDICATIONS: ACUTE PAIN OF LEFT SHOULDER TECHNIQUE: After the intra-articular administration of 12 mL of dilute non-ionic contrast, 1-1.5 mm thick sections acquired from the acromioclavicular joint to the inferior scapula, with coronal and sagittal reformatting. COMPARISON: [place], [place] SHOULDER INJECTION MR/CT LT, 06/07/2018, 10:01. FINDINGS: Image quality: Evaluation is slightly limited secondary to significant beam hardening artifact from left shoulder prosthesis. Bones: Patient is status post prior left shoulder arthroplasty. There is no gross hardware loosening or failure. No acute fracture or dislocation is seen. Moderate acromioclavicular joint osteoarthritis is seen. No suspicious bony lesion is noted. Soft tissues: There is no contrast extension into the subacromial subdeltoid bursa or a.c. joint space to suggest full-thickness rotator cuff tendon rupture. There is likely mild supraspinatus muscle atrophy. No gross intra-articular loose body. IMPRESSION: 1. No gross full-thickness rotator cuff tendon rupture. Mild supraspinatus muscle atrophy. 2. Prior left shoulder arthroplasty with post surgical changes. No gross hardware complication. No fracture or dislocation. Moderate acromioclavicular joint osteoarthritis. Dictated by: Nicholas Sandoval M.D. on 06/07/2018 at 16:42 Approved by: Nicholas Sandoval M.D. on 06/07/2018 at 16:54
== END ==
PROVIDERS: PCP Internal Medicine; Visit Provider Orthopaedic Surgery
DX: M25.512 Pain in left shoulder (principal); Z96.612 Presence of left artificial shoulder joint; M19.012 Primary osteoarthritis, left shoulder
CPT/HCPCS: 23350; 73201; 77002

== ENCOUNTER 2018-06-12 15:15 | Outpatient (RCR) | payer MEDICARE, SELFPAY ==
--- NOTE | 2018-05-31 09:59 | PT.OIE ---
Current Diagnoses Pain in right leg (05/29/18) Pain in leg, unspecified (05/29/18) Difficulty in walking, not elsewhere classified (05/29/18) Weakness (05/29/18) Other injury of unspecified body region, initial encounter (05/29/18) History of falling (05/29/18) Past Medical History (Last Reviewed 03/31/18 @ 10:44 by Lyubov Beavers DO) Major depressive disorder, recurrent episode, severe (Chronic) Organic sleep apnea, unspecified (Chronic) Hypersomnia (Chronic) Anxiety (Chronic) Paroxysmal atrial fibrillation (Chronic) Chronic pain syndrome (Chronic 11/08/16) Hypothyroidism (Chronic) Post traumatic stress disorder (PTSD) (Chronic) Sleep apnea (Chronic) Cognitive disorder (Chronic 04/24/14) Obesity with body mass index (BMI) of 30.0 to 39.9 (Chronic 12/06/14) Other iron deficiency anemia (Chronic 02/03/15) Chronic left shoulder pain (Chronic 01/20/16) Chronic obstructive pulmonary disease (Chronic 08/05/17) H/O renal calculi (Inactive) H/O migraine (Inactive) S/P ECT (electroconvulsive therapy) (Acute) Sarcoidosis (Chronic) Psoriasis (Chronic) Iron deficiency (Chronic) 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) Vitamin B12 deficiency (Chronic 02/19/11) History of stroke (Inactive) Narcotic dependence (Resolved 09/01/16) Patent foramen ovale (Resolved) Pneumonia (Resolved) Past Surgical History (Last Reviewed 03/31/18 @ 10:44 by Lyubov Beavers DO) History of Cris-en-Y gastric bypass (Inactive ~2003) History of gastric bypass (Inactive ~2003) History of total shoulder replacement (Inactive ~12/2015) S/P lumbar laminectomy (Inactive ~10/2017) Provider Visit Care Team Role Provider Type Eleazar Armstrong MD Attending Provider Physician Primary Care Provider Specialty: Internal Medicine Address: [address] [place] [address], [address] Email: [email or web address] Physical Therapy Initial Evaluation PT-OP-A Visit Information Start: 05/29/18 14:26 Freq: Status: Active Protocol: Document 05/29/18 15:19 SAK (Rec: 05/31/18 09:58 [facility] [id number]) Out-Patient Physical Therapy Visit Information Visit Information Visit Type Initial Evaluation Visit Start Time 15:15 Visit Stop Time 16:00 Total Visit Minutes 45 Visit Number 1 Number of INTERNAL REVENUE SERVICE AGENT Visits 0 Evaluation Information Evaluation Date 05/29/18 Precautions Precautions depression PT-OP-B Current Condition Start: 05/29/18 14:26 Freq: Status: Active Protocol: Document 05/29/18 15:19 [facility] (Rec: 05/29/18 16:26 [facility] [id number]) Current Condition History of Current Condition Onset Date 6 months Current Complaints frequent falls, difficulty getting up off the floor History of Current Condition Reports frequent falls for unknown reason 3-4 per month, as well as multiple almost falls. Fall 2 1/2 months ago resulting in severe hematoma for which he sough medical care in ER multiple times due to pain. Pain has resolved. No longer taking narcotics . Working with sleep center regarding possible narcolepsy. Numbness in toes for a long time, no other numbness or tingling. LE's occasionally give way. Intermittantly uses a straight cane. Prior Functional Status Baseline Function- ADL's Independent Baseline Function- Mobility Independent Baseline Function- Gait independent, no device Current Functional Impairments (Reported) Functional Limitations- ADL's balance dysfunction, falls Functional Limitations- Mobility/Gait frequent falls Personal Factors Other Personal Factors That May Effect depression, excessive sleep ( Therapy/Recovery per patient) PT-OP-C Subjective Start: 05/29/18 14:26 Freq: Status: Active Protocol: Document 05/29/18 15:19 [facility] (Rec: 05/31/18 09:58 [facility] [id number]) Patient Questionnaires ABC- Activity Specific Balance Confidence Scale ABC Score 20 ABC Functional Impairment 80 to <100% Impaired (Score 1- 20) OP-PT Pain Assessment Pain Assessment Grid Paper Pain Assessment Grid Completed Yes Location left knee Intensity 5 Description Aching Frequency Frequent Pain Aggravating Factors Activity Pain Alleviating Factors Inactivity Pain Behaviors Pain Behaviors Guarding Wincing PT-OP-D Balance Start: 05/29/18 14:26 Freq: Status: Active Protocol: Document 05/29/18 15:19 [facility] (Rec: 05/31/18 09:58 [facility] [id number]) OP-PT Balance Assessment Sitting Balance Static Sitting Balance Ability Normal Dynamic Sitting Balance Ability Normal Balance Tests Gallardo Balance Test Gallardo Impairment Rating 20 to 39% Impaired (Score 34- 44) Functional Reach Functional Reach Impairment Rating 0% Impaired (Score 10) Single Limb Standing Single Limb- Right 0 Single Limb- Left 0 Gao Fall Scale Copyright Permission Murray JM, Murray RM, Kiki SJ. Development of a scale to identify the fall- prone patient. Can J Aging 1989;8;366-7. Elizabeth Gao (2009). Preventing patient falls. (2nd ed). [place]: Bailey. PT-OP-E Functional Tests Start: 05/29/18 14:26 Freq: Status: Active Protocol: Document 05/29/18 15:19 [facility] (Rec: 05/31/18 09:58 [facility] [id number]) Functional Tests Five Times Sit to Stand Test Score 20 sec Timed Up and Go (TUG) Score 12 TUG Impairment Rating 1 to <20% Impaired (Score 11) PT-OP-G Mobility & Gait Start: 05/29/18 14:26 Freq: Status: Active Protocol: Document 05/29/18 15:19 [facility] (Rec: 05/31/18 09:58 [facility] [id number]) OP Mobility Evaluation Transfers Sit to Stand indep Bed to Chair Transfers indep Car Transfers indep Floor Transfers indep but labored OP Gait Assessment Gait Gait Assistance Required: Independent Distance (Feet) 100 Assistive Devices Assistive Device Straight Cane Gait Deviations General Gait Pattern Decreased Stride Length Decreased Feet Clearance Stair Climbing Evaluation Evaluation Level of Assist On Stairs Independent Devices Stair Climbing Assistive Devices Left Railing Right Railing Technique/Endurance Stair Climbing Direction Ascend and Descend Stair Climbing Technique Step Over Step PT-OP-K Range of Motion Start: 05/29/18 14:26 Freq: Status: Active Protocol: Document 05/29/18 15:19 [facility] (Rec: 05/31/18 09:58 [facility] [id number]) Lumbar Spine Range of Motion Lumbar Spine Active ROM Limitations Soft Tissue Tightness Comments mild decrease all motions Hip Goniometric Range of Motion Hip Measured in Degrees monica Hip ROM WFL Yes Knee Goniometric Range of Motion Knee Measured in Degrees monica Knee ROM WFL Yes Knee ROM Limitations Comments pain at end-range flex and extension left knee Ankle and Foot Goniometric Range of Motion Ankle and Foot Measured in Degrees monica Ankle/Foot ROM WFL No Ankle and Foot ROM Limitations ROM Limitations Soft Tissue Tightness Comments ankle df limited to 0 knees extended, 5 knees flexed PT-OP-M Strength Start: 05/29/18 14:26 Freq: Status: Active Protocol: Document 05/29/18 15:19 [facility] (Rec: 05/31/18 09:58 [facility] [id number]) Trunk Strength Trunk Manual Muscle Testing Flexion 3+ Fair+ Extension 3+ Fair+ Hip Strength Hip Manual Muscle Testing monica Flexion (L2) 4- Good- Extension (S1) 3+ Fair+ Abduction 4- Good- External Rotation 4- Good- Internal Rotation 4 Good Knee Strength Knee Manual Muscle Testing monica Flexion (S2) 4+ Good+ Extension (L3) 4+ Good+ Ankle/Foot Strength Ankle and Foot Manual Muscle Testing monica Dorsiflexion (L4) 4 Good Plantarflexion (S1) 4- Good- Inversion 4- Good- Eversion (S1) 4- Good- PT-OP-Q Treatments Start: 05/29/18 14:26 Freq: Status: Active Protocol: Document 05/29/18 15:19 [facility] (Rec: 05/31/18 09:58 [facility] [id number]) Self-Care/Home Management Treatment Education Patient Education Home Exercise Program Safety PT-OP-T Assessment and Plan Start: 05/29/18 14:26 Freq: Status: Active Protocol: Document 05/29/18 15:19 [facility] (Rec: 05/31/18 09:58 [facility] [id number]) Physical Therapy Assessment Rehab Potential Rehabilitation Potential Good Evaluation Complexity Number of Personal Factors/Comorbidities 3 or More Number of Body Systems Impaired 3 Clinical Presentation at Evaluation Evolving Impairments Impairments Activity Tolerance Balance Gait Strength Goals 4 Impairment frequent falls Short Term Goal (STG) 50% reduction in frequency of falls STG Duration 07/08/18 [facility] Goal (LTG) No reported falls for 4 wks LTG Duration 08/26/18 3 Impairment LE weakness and dysfunction ( lower extremity functional scale 19%) Short Term Goal (STG) Patient to be independent in HEP and tolerate 45 PT session without an increase in pain STG Duration 07/08/18 [facility] Goal (LTG) Improve LEFS to at least 60% with LE strength at least 4+/5 LTG Duration 08/26/18 Two Impairment gait dysfunction (Dynamic Gait Index score ) Short Term Goal (STG) Improve DGI to 17 STG Duration 07/08/18 [facility] Goal (LTG) Improve dynamic gait index to 20/24 LTG Duration 08/26/18 One Impairment balance dysfunction (Gallardo balance score 41/56) Short Term Goal (STG) Improve Gallardo balance score to 45/48 STG Duration 07/08/18 [employer] Goal (LTG) Improve Gallardo balance score to to 48/56 to improve safety and decrease falls LTG Duration 08/26/18 Assessment Summary Assessment Patient presents with pain in LE's mostly resolved, primary c/o balance dysfunction with frequent falls. Patient not currently participating in any exercise or walking program in the home or community. Would benefit from PT for strengthening, gait and balance training, modalities as needed for pain to improve his safety with mobility and decrease his fall risk. Physical Therapy Plan Frequency and Duration Frequency of Treatment 2x/Week Duration of Treatment 3 months Plan of Care Start Date 05/29/18 Plan of Care End Date 08/26/18 Therapeutic Interventions Therapeutic Interventions Balance Training Gait Training Home Exercise Program Neuromuscular Re-education Patient/Caregiver Education Self-Care/Home Management Therapeutic Activities Therapeutic Exercises Modalities Cold Pack/Ice Massage Hot Packs Next Visit Focus/Plan Next Note Type Treatment Note Next Visit Plan Review HEP, progress with ther ex focused on strengthening and balance, gait training. Modalities for pain PRN.
--- NOTE | 2018-05-31 09:59 | PT.OPPOC ---
Current Diagnoses Pain in right leg (05/29/18) Pain in leg, unspecified (05/29/18) Difficulty in walking, not elsewhere classified (05/29/18) Weakness (05/29/18) Other injury of unspecified body region, initial encounter (05/29/18) History of falling (05/29/18) Provider Visit Care Team Role Provider Type Eleazar Armstrong MD Attending Provider Physician Primary Care Provider Specialty: Internal Medicine Address: [address] [place] [address], [address] Email: [email or web address] Plan Of Care PT-OP-T Assessment and Plan Start: 05/29/18 14:26 Freq: Status: Active Protocol: Document 05/29/18 15:19 SAK (Rec: 05/31/18 09:58 [facility]AK [id number]) Physical Therapy Assessment Rehab Potential Rehabilitation Potential Good Evaluation Complexity Number of Personal Factors/Comorbidities 3 or More Number of Body Systems Impaired 3 Clinical Presentation at Evaluation Evolving Impairments Impairments Activity Tolerance Balance Gait Strength Goals 4 Impairment frequent falls Short Term Goal (STG) 50% reduction in frequency of falls STG Duration 07/08/18 [employer] Helper Goal (LTG) No reported falls for 4 wks LTG Duration 08/26/18 3 Impairment LE weakness and dysfunction ( lower extremity functional scale 19%) Short Term Goal (STG) Patient to be independent in HEP and tolerate 45 PT session without an increase in pain STG Duration 07/08/18 [employer] Hel[facility] Goal (LTG) Improve LEFS to at least 60% with LE strength at least 4+/5 LTG Duration 08/26/18 Two Impairment gait dysfunction (Dynamic Gait Index score 14/24) Short Term Goal (STG) Improve DGI to 17/24 STG Duration 07/08/18 Care Home Goal (LTG) Improve dynamic gait index to 20/24 LTG Duration 08/26/18 One Impairment balance dysfunction (Gallardo balance score 41/56) Short Term Goal (STG) Improve Gallardo balance score to 45/48 STG Duration 07/08/18 Gambreler Helper Goal (LTG) Improve Gallardo balance score to to 48/56 to improve safety and decrease falls LTG Duration 08/26/18 Assessment Summary Assessment Patient presents with pain in LE's mostly resolved, primary c/o balance dysfunction with frequent falls. Patient not currently participating in any exercise or walking program in the home or community. Would benefit from PT for strengthening, gait and balance training, modalities as needed for pain to improve his safety with mobility and decrease his fall risk. Physical Therapy Plan Frequency and Duration Frequency of Treatment 2x/Week Duration of Treatment 3 months Plan of Care Start Date 05/29/18 Plan of Care End Date 08/26/18 Therapeutic Interventions Therapeutic Interventions Balance Training Gait Training Home Exercise Program Neuromuscular Re-education Patient/Caregiver Education Self-Care/Home Management Therapeutic Activities Therapeutic Exercises Modalities Cold Pack/Ice Massage Hot Packs Next Visit Focus/Plan Next Note Type Treatment Note Next Visit Plan Review HEP, progress with ther ex focused on strengthening and balance, gait training. Modalities for pain PRN. Plan of Care Dates Plan of Care Start Date 05/29/18 Plan of Care End Date 08/26/18 Please Sign and Return: I have reviewed this Plan of Care and certify that the skilled therapy services above are required to meet the patient?s needs. Physician Signature Date Printed Name and Credentials Clinical Instructor Signature Printed Name and Credentials
--- NOTE | 2018-05-31 16:26 | PT.OTN ---
Current Diagnoses Pain in right leg (05/31/18) Pain in leg, unspecified (05/31/18) Other injury of unspecified body region, initial encounter (05/31/18) Physical Therapy Treatment Note PT-OP-A Visit Information Start: 05/29/18 14:26 Freq: Status: Active Protocol: Document 05/31/18 15:27 SAK (Rec: 05/31/18 16:26 [facility]AK [id number]) Out-Patient Physical Therapy Visit Information Visit Information Visit Type Treatment Note Visit Start Time 15:15 Visit Stop Time 16:00 Total Visit Minutes 45 Visit Number 2 Number of PIPE CREW FOREMAN Visits 0 PT-OP-B Current Condition Start: 05/29/18 14:26 Freq: Status: Active Protocol: Document 05/29/18 15:19 [facility]AK (Rec: 05/29/18 16:26 [facility]AK [id number]) Current Condition History of Current Condition Onset Date 6 months Current Complaints frequent falls, difficulty getting up off the floor History of Current Condition Reports frequent falls for unknown reason 3-4 per month, as well as multiple almost falls. Fall 2 1/2 months ago resulting in severe hematoma for which he sough medical care in ER multiple times due to pain. Pain has resolved. No longer taking narcotics . Working with sleep center regarding possible narcolepsy. Numbness in toes for a long time, no other numbness or tingling. LE's occasionally give way. Intermittantly uses a straight cane. Prior Functional Status Baseline Function- ADL's Independent Baseline Function- Mobility Independent Baseline Function- Gait independent, no device Current Functional Impairments (Reported) Functional Limitations- ADL's balance dysfunction, falls Functional Limitations- Mobility/Gait frequent falls Personal Factors Other Personal Factors That May Effect depression, excessive sleep ( Therapy/Recovery per patient) PT-OP-C Subjective Start: 05/29/18 14:26 Freq: Status: Active Protocol: Document 05/31/18 15:27 SAK (Rec: 05/31/18 16:26 SAK [id number]) OP-PT Subjective Patient Comments Patient Comments Reports went to sleep center; diagnosed with hypersomnia. Prescribed same medication used for narcolepsy. Saw orthopedist for left shoulder; suspected rotator cuff tear. PT-OP-D Balance Start: 05/29/18 14:26 Freq: Status: Active Protocol: Document 05/29/18 15:19 SAK (Rec: 05/31/18 09:58 [facility] [id number]) OP-PT Balance Assessment Sitting Balance Static Sitting Balance Ability Normal Dynamic Sitting Balance Ability Normal Balance Tests Gallardo Balance Test Gallardo Impairment Rating 20 to 39% Impaired (Score 34- 44) Functional Reach Functional Reach Impairment Rating 0% Impaired (Score 10) Single Limb Standing Single Limb- Right 0 Single Limb- Left 0 Gao Fall Scale Copyright Permission Murray JM, Murray RM, Kiki SJ. Development of a scale to identify the fall- prone patient. Can J Aging 1989;8;366-7. Elizabeth Gao (2009). Preventing patient falls. (2nd ed). [place]: Bailey. PT-OP-E Functional Tests Start: 05/29/18 14:26 Freq: Status: Active Protocol: Document 05/29/18 15:19 [facility] (Rec: 05/31/18 09:58 [facility] [id number]) Functional Tests Five Times Sit to Stand Test Score 20 sec Timed Up and Go (TUG) Score 12 TUG Impairment Rating 1 to <20% Impaired (Score 11) PT-OP-G Mobility & Gait Start: 05/29/18 14:26 Freq: Status: Active Protocol: Document 05/29/18 15:19 [facility] (Rec: 05/31/18 09:58 [facility] [id number]) OP Mobility Evaluation Transfers Sit to Stand indep Bed to Chair Transfers indep Car Transfers indep Floor Transfers indep but labored OP Gait Assessment Gait Gait Assistance Required: Independent Distance (Feet) 100 Assistive Devices Assistive Device Straight Cane Gait Deviations General Gait Pattern Decreased Stride Length Decreased Feet Clearance Stair Climbing Evaluation Evaluation Level of Assist On Stairs Independent Devices Stair Climbing Assistive Devices Left Railing Right Railing Technique/Endurance Stair Climbing Direction Ascend and Descend Stair Climbing Technique Step Over Step PT-OP-K Range of Motion Start: 05/29/18 14:26 Freq: Status: Active Protocol: Document 05/29/18 15:19 [facility] (Rec: 05/31/18 09:58 [facility] [id number]) Lumbar Spine Range of Motion Lumbar Spine Active ROM Limitations Soft Tissue Tightness Comments mild decrease all motions Hip Goniometric Range of Motion Hip Measured in Degrees monica Hip ROM WFL Yes Knee Goniometric Range of Motion Knee Measured in Degrees monica Knee ROM WFL Yes Knee ROM Limitations Comments pain at end-range flex and extension left knee Ankle and Foot Goniometric Range of Motion Ankle and Foot Measured in Degrees monica Ankle/Foot ROM WFL No Ankle and Foot ROM Limitations ROM Limitations Soft Tissue Tightness Comments ankle df limited to 0 knees extended, 5 knees flexed PT-OP-M Strength Start: 05/29/18 14:26 Freq: Status: Active Protocol: Document 05/29/18 15:19 [facility] (Rec: 05/31/18 09:58 [facility] [id number]) Trunk Strength Trunk Manual Muscle Testing Flexion 3+ Fair+ Extension 3+ Fair+ Hip Strength Hip Manual Muscle Testing monica Flexion (L2) 4- Good- Extension (S1) 3+ Fair+ Abduction 4- Good- External Rotation 4- Good- Internal Rotation 4 Good Knee Strength Knee Manual Muscle Testing monica Flexion (S2) 4+ Good+ Extension (L3) 4+ Good+ Ankle/Foot Strength Ankle and Foot Manual Muscle Testing monica Dorsiflexion (L4) 4 Good Plantarflexion (S1) 4- Good- Inversion 4- Good- Eversion (S1) 4- Good- PT-OP-Q Treatments Start: 05/29/18 14:26 Freq: Status: Active Protocol: Document 05/31/18 15:27 [facility] (Rec: 05/31/18 16:26 [facility] [id number]) Cardio Equipment Recumbent Stepper (Sci-Fit) Duration (Minutes) 10 Resistance 2 Other 5x2 Gym Equipment Shuttle Balance chains yellow Details WBOS, NBOS, trunk rotation, EO , EC Reps/Duration 6 min Therapeutic Exercises Standing Exercises squats Reps/Minutes 10x hip ab Reps/Minutes 10x march Reps/Minutes 10x heel raise, toe raise Reps/Minutes 10x Neuro Re-Education Treatment Balance Activities tandem stand Reps/Duration 2' SLS Reps/Duration 2' PT-OP-T Assessment and Plan Start: 05/29/18 14:26 Freq: Status: Active Protocol: Document 05/31/18 15:27 [facility] (Rec: 05/31/18 16:26 [facility] [id number]) Physical Therapy Assessment Goals 4 Impairment frequent falls Short Term Goal (STG) 50% reduction in frequency of falls STG Duration 07/08/18 Manager Regulatory Goal (LTG) No reported falls for 4 wks LTG Duration 08/26/18 3 Impairment LE weakness and dysfunction ( lower extremity functional scale 19%) Short Term Goal (STG) Patient to be independent in HEP and tolerate 45 PT session without an increase in pain STG Duration 07/08/18 Manager Regulatory Goal (LTG) Improve LEFS to at least 60% with LE strength at least 4+/5 LTG Duration 08/26/18 Two Impairment gait dysfunction (Dynamic Gait Index score 14/24) Short Term Goal (STG) Improve DGI to 17/24 STG Duration 07/08/18 [facility] Goal (LTG) Improve dynamic gait index to 20/24 LTG Duration 08/26/18 One Impairment balance dysfunction (Gallardo balance score 41/56) Short Term Goal (STG) Improve Gallardo balance score to 45/48 STG Duration 07/08/18 [facility] Goal (LTG) Improve Gallardo balance score to to 48/56 to improve safety and decrease falls LTG Duration 08/26/18 Assessment Summary Assessment Good tolerance for ther ex today, occasional rest breaks. Required UE support for all balance tasks Physical Therapy Plan Frequency and Duration Frequency of Treatment 2x/Week Duration of Treatment 3 months Plan of Care Start Date 05/29/18 Plan of Care End Date 08/26/18 Therapeutic Interventions Therapeutic Interventions Balance Training Gait Training Home Exercise Program Neuromuscular Re-education Patient/Caregiver Education Self-Care/Home Management Therapeutic Activities Therapeutic Exercises Modalities Cold Pack/Ice Massage Hot Packs Next Visit Focus/Plan Next Note Type Treatment Note Next Visit Plan Continue ther ex progression for balance and strengthening, gait training.
--- NOTE | 2018-06-05 16:07 | PT.OTN ---
Current Diagnoses Pain in right leg (06/05/18) Pain in leg, unspecified (06/05/18) Other injury of unspecified body region, initial encounter (06/05/18) Physical Therapy Treatment Note PT-OP-A Visit Information Start: 05/29/18 14:26 Freq: Status: Active Protocol: Document 06/05/18 15:21 SAK (Rec: 06/05/18 16:07 SAK [id number]) Out-Patient Physical Therapy Visit Information Visit Information Visit Type Treatment Note Visit Start Time 15:15 Visit Stop Time 16:00 Total Visit Minutes 45 Visit Number 3 Number of SUPPLY CLERK Visits 0 PT-OP-B Current Condition Start: 05/29/18 14:26 Freq: Status: Active Protocol: Document 05/29/18 15:19 SAK (Rec: 05/29/18 16:26 SAK [id number]) Current Condition History of Current Condition Onset Date 6 months Current Complaints frequent falls, difficulty getting up off the floor History of Current Condition Reports frequent falls for unknown reason 3-4 per month, as well as multiple almost falls. Fall 2 1/2 months ago resulting in severe hematoma for which he sough medical care in ER multiple times due to pain. Pain has resolved. No longer taking narcotics . Working with sleep center regarding possible narcolepsy. Numbness in toes for a long time, no other numbness or tingling. LE's occasionally give way. Intermittantly uses a straight cane. Prior Functional Status Baseline Function- ADL's Independent Baseline Function- Mobility Independent Baseline Function- Gait independent, no device Current Functional Impairments (Reported) Functional Limitations- ADL's balance dysfunction, falls Functional Limitations- Mobility/Gait frequent falls Personal Factors Other Personal Factors That May Effect depression, excessive sleep ( Therapy/Recovery per patient) PT-OP-C Subjective Start: 05/29/18 14:26 Freq: Status: Active Protocol: Document 06/05/18 15:21 SAK (Rec: 06/05/18 16:07 SAK [id number]) OP-PT Subjective Patient Comments Patient Comments Reports fell x 2 at home over the weekend, uncertain of cause. PT-OP-D Balance Start: 05/29/18 14:26 Freq: Status: Active Protocol: Document 05/29/18 15:19 SAK (Rec: 05/31/18 09:58 SAK [id number]) OP-PT Balance Assessment Sitting Balance Static Sitting Balance Ability Normal Dynamic Sitting Balance Ability Normal Balance Tests Gallardo Balance Test Gallardo Impairment Rating 20 to 39% Impaired (Score 34- 44) Functional Reach Functional Reach Impairment Rating 0% Impaired (Score 10) Single Limb Standing Single Limb- Right 0 Single Limb- Left 0 Gao Fall Scale Copyright Permission Murray JM, Murray RM, Kiki SJ. Development of a scale to identify the fall- prone patient. Can J Aging 1989;8;366-7. Elizabeth Gao (2009). Preventing patient falls. (2nd ed). [place]: Bailey. PT-OP-E Functional Tests Start: 05/29/18 14:26 Freq: Status: Active Protocol: Document 05/29/18 15:[address] [facility] (Rec: 05/31/18 09:[address] [facility] [id number]) Functional Tests Five Times Sit to Stand Test Score 20 sec Timed Up and Go (TUG) Score 12 TUG Impairment Rating 1 to <20% Impaired (Score 11) PT-OP-G Mobility & Gait Start: 05/29/18 14:26 Freq: Status: Active Protocol: Document 05/29/18 15:[address] [facility] (Rec: 05/31/18 09:[address] [facility] [id number]) OP Mobility Evaluation Transfers Sit to Stand indep Bed to Chair Transfers indep Car Transfers indep Floor Transfers indep but labored OP Gait Assessment Gait Gait Assistance Required: Independent Distance (Feet) 100 Assistive Devices Assistive Device Straight Cane Gait Deviations General Gait Pattern Decreased Stride Length Decreased Feet Clearance Stair Climbing Evaluation Evaluation Level of Assist On Stairs Independent Devices Stair Climbing Assistive Devices Left Railing Right Railing Technique/Endurance Stair Climbing Direction Ascend and Descend Stair Climbing Technique Step Over Step PT-OP-K Range of Motion Start: 05/29/18 14:26 Freq: Status: Active Protocol: Document 05/29/18 15:[address] [facility] (Rec: 05/31/18 09:[address] [facility] [id number]) Lumbar Spine Range of Motion Lumbar Spine Active ROM Limitations Soft Tissue Tightness Comments mild decrease all motions Hip Goniometric Range of Motion Hip Measured in Degrees monica Hip ROM WFL Yes Knee Goniometric Range of Motion Knee Measured in Degrees monica Knee ROM WFL Yes Knee ROM Limitations Comments pain at end-range flex and extension left knee Ankle and Foot Goniometric Range of Motion Ankle and Foot Measured in Degrees monica Ankle/Foot ROM WFL No Ankle and Foot ROM Limitations ROM Limitations Soft Tissue Tightness Comments ankle df limited to 0 knees extended, 5 knees flexed PT-OP-M Strength Start: 05/29/18 14:26 Freq: Status: Active Protocol: Document 05/29/18 15:[address] [facility] (Rec: 05/31/18 09:[address] [facility] [id number]) Trunk Strength Trunk Manual Muscle Testing Flexion 3+ Fair+ Extension 3+ Fair+ Hip Strength Hip Manual Muscle Testing monica Flexion (L2) 4- Good- Extension (S1) 3+ Fair+ Abduction 4- Good- External Rotation 4- Good- Internal Rotation 4 Good Knee Strength Knee Manual Muscle Testing monica Flexion (S2) 4+ Good+ Extension (L3) 4+ Good+ Ankle/Foot Strength Ankle and Foot Manual Muscle Testing monica Dorsiflexion (L4) 4 Good Plantarflexion (S1) 4- Good- Inversion 4- Good- Eversion (S1) 4- Good- PT-OP-Q Treatments Start: 05/29/18 14:26 Freq: Status: Active Protocol: Document 06/05/18 15:[address] [facility] (Rec: 06/05/18 16:[address] [facility] [id number]) Cardio Equipment Recumbent Stepper (Sci-Fit) Duration (Minutes) 10 Resistance 2 Gym Equipment Shuttle Balance chains red Details balance fwd/bck, side/side chains green Comments walk across chains yellow Details WBOS, NBOS, trunk rotation, EO , EC Therapeutic Exercises Standing Exercises march Reps/Minutes 10x heel raise, toe raise Reps/Minutes 10x Neuro Re-Education Treatment Balance Activities obstacle course Reps/Duration 10 min Comments hurdles, foam, 4 box PT-OP-T Assessment and Plan Start: 05/29/18 14:26 Freq: Status: Active Protocol: Document 06/05/18 15:[address] [facility] (Rec: 06/05/18 16:[address] [facility] [id number]) Physical Therapy Assessment Goals 4 Impairment frequent falls Short Term Goal (STG) 50% reduction in frequency of falls STG Duration 07/08/18 Usp Goal (LTG) No reported falls for 4 wks LTG Duration 08/26/18 3 Impairment LE weakness and dysfunction ( lower extremity functional scale 19%) Short Term Goal (STG) Patient to be independent in HEP and tolerate 45 PT session without an increase in pain STG Duration 07/08/18 Transitional Studies Instructor Goal (LTG) Improve LEFS to at least 60% with LE strength at least 4+/5 LTG Duration 08/26/18 Two Impairment gait dysfunction (Dynamic Gait Index score 14/24) Short Term Goal (STG) Improve DGI to 17/24 STG Duration 07/08/18 Usp Goal (LTG) Improve dynamic gait index to 20/24 LTG Duration 08/26/18 One Impairment balance dysfunction (Gallardo balance score 41/56) Short Term Goal (STG) Improve Gallardo balance score to 45/48 STG Duration 07/08/18 Transitional Studies Instructor Goal (LTG) Improve Gallardo balance score to to 48/56 to improve safety and decrease falls LTG Duration 08/26/18 Assessment Summary Assessment Patient experienced LOB x 3 during session today requiring min to mod assist, easily distracted and balance diminished when distracted. Physical Therapy Plan Frequency and Duration Frequency of Treatment 2x/Week Duration of Treatment 3 months Plan of Care Start Date 05/29/18 Plan of Care End Date 08/26/18 Therapeutic Interventions Therapeutic Interventions Balance Training Gait Training Home Exercise Program Neuromuscular Re-education Patient/Caregiver Education Self-Care/Home Management Therapeutic Activities Therapeutic Exercises Modalities Cold Pack/Ice Massage Hot Packs Next Visit Focus/Plan Next Note Type Treatment Note Next Visit Plan Continue PT, emphasis on challenged gait, balance adding distraction at times.
--- NOTE | 2018-06-12 16:05 | PT.OTN ---
Current Diagnoses Pain in right leg (06/12/18) Pain in leg, unspecified (06/12/18) Other injury of unspecified body region, initial encounter (06/12/18) Physical Therapy Treatment Note PT-OP-A Visit Information Start: 05/29/18 14:26 Freq: Status: Active Protocol: Document 06/12/18 15:17 SAK (Rec: 06/12/18 16:05 SAK [id number]) Out-Patient Physical Therapy Visit Information Visit Information Visit Type Treatment Note Visit Start Time 15:15 Visit Stop Time 16:05 Total Visit Minutes 50 Visit Number 4 Evaluation Information Evaluation Date 05/29/18 Precautions Precautions depression PT-OP-B Current Condition Start: 05/29/18 14:26 Freq: Status: Active Protocol: Document 05/29/18 15:19 SAK (Rec: 05/29/18 16:26 SAK [id number]) Current Condition History of Current Condition Onset Date 6 months Current Complaints frequent falls, difficulty getting up off the floor History of Current Condition Reports frequent falls for unknown reason 3-4 per month, as well as multiple almost falls. Fall 2 1/2 months ago resulting in severe hematoma for which he sough medical care in ER multiple times due to pain. Pain has resolved. No longer taking narcotics . Working with sleep center regarding possible narcolepsy. Numbness in toes for a long time, no other numbness or tingling. LE's occasionally give way. Intermittantly uses a straight cane. Prior Functional Status Baseline Function- ADL's Independent Baseline Function- Mobility Independent Baseline Function- Gait independent, no device Current Functional Impairments (Reported) Functional Limitations- ADL's balance dysfunction, falls Functional Limitations- Mobility/Gait frequent falls Personal Factors Other Personal Factors That May Effect depression, excessive sleep ( Therapy/Recovery per patient) PT-OP-C Subjective Start: 05/29/18 14:26 Freq: Status: Active Protocol: Document 06/12/18 15:17 SAK (Rec: 06/12/18 16:05 SAK [id number]) OP-PT Subjective Patient Comments Patient Comments Missed appointment due to sore rib (reports 6 month intermittant) PT-OP-D Balance Start: 05/29/18 14:26 Freq: Status: Active Protocol: Document 05/29/18 15:19 SAK (Rec: 05/31/18 09:58 SAK [id number]) OP-PT Balance Assessment Sitting Balance Static Sitting Balance Ability Normal Dynamic Sitting Balance Ability Normal Balance Tests Gallardo Balance Test Gallardo Impairment Rating 20 to 39% Impaired (Score 34- 44) Functional Reach Functional Reach Impairment Rating 0% Impaired (Score 10) Single Limb Standing Single Limb- Right 0 Single Limb- Left 0 Gao Fall Scale Copyright Permission Murray JM, Murray RM, Kiki SJ. Development of a scale to identify the fall- prone patient. Can J Aging 1989;8;366-7. Elizabeth Gao (2009). Preventing patient falls. (2nd ed). [place]: [place]. PT-OP-E Functional Tests Start: 05/29/18 14:26 Freq: Status: Active Protocol: Document 05/29/18 15:19 [facility] (Rec: 05/31/18 09:58 [facility] [id number]) Functional Tests Five Times Sit to Stand Test Score 20 sec Timed Up and Go (TUG) Score 12 TUG Impairment Rating 1 to <20% Impaired (Score 11) PT-OP-G Mobility & Gait Start: 05/29/18 14:26 Freq: Status: Active Protocol: Document 05/29/18 15:19 [facility] (Rec: 05/31/18 09:58 [facility] [id number]) OP Mobility Evaluation Transfers Sit to Stand indep Bed to Chair Transfers indep Car Transfers indep Floor Transfers indep but labored OP Gait Assessment Gait Gait Assistance Required: Independent Distance (Feet) 100 Assistive Devices Assistive Device Straight Cane Gait Deviations General Gait Pattern Decreased Stride Length Decreased Feet Clearance Stair Climbing Evaluation Evaluation Level of Assist On Stairs Independent Devices Stair Climbing Assistive Devices Left Railing Right Railing Technique/Endurance Stair Climbing Direction Ascend and Descend Stair Climbing Technique Step Over Step PT-OP-K Range of Motion Start: 05/29/18 14:26 Freq: Status: Active Protocol: Document 05/29/18 15:19 [facility] (Rec: 05/31/18 09:58 [facility] [id number]) Lumbar Spine Range of Motion Lumbar Spine Active ROM Limitations Soft Tissue Tightness Comments mild decrease all motions Hip Goniometric Range of Motion Hip Measured in Degrees monica Hip ROM WFL Yes Knee Goniometric Range of Motion Knee Measured in Degrees monica Knee ROM WFL Yes Knee ROM Limitations Comments pain at end-range flex and extension left knee Ankle and Foot Goniometric Range of Motion Ankle and Foot Measured in Degrees monica Ankle/Foot ROM WFL No Ankle and Foot ROM Limitations ROM Limitations Soft Tissue Tightness Comments ankle df limited to 0 knees extended, 5 knees flexed PT-OP-M Strength Start: 05/29/18 14:26 Freq: Status: Active Protocol: Document 05/29/18 15:19 [facility] (Rec: 05/31/18 09:58 [facility] [id number]) Trunk Strength Trunk Manual Muscle Testing Flexion 3+ Fair+ Extension 3+ Fair+ Hip Strength Hip Manual Muscle Testing monica Flexion (L2) 4- Good- Extension (S1) 3+ Fair+ Abduction 4- Good- External Rotation 4- Good- Internal Rotation 4 Good Knee Strength Knee Manual Muscle Testing monica Flexion (S2) 4+ Good+ Extension (L3) 4+ Good+ Ankle/Foot Strength Ankle and Foot Manual Muscle Testing monica Dorsiflexion (L4) 4 Good Plantarflexion (S1) 4- Good- Inversion 4- Good- Eversion (S1) 4- Good- PT-OP-Q Treatments Start: 05/29/18 14:26 Freq: Status: Active Protocol: Document 06/12/18 15:17 [facility] (Rec: 06/12/18 16:05 [facility] [id number]) Cardio Equipment Recumbent Stepper (Sci-Fit) Duration (Minutes) 11 Resistance 2 Gym Equipment Shuttle Balance chains red Details balance fwd/bck, side/side Sport Cord green Exercise Details forward, back, side Cord/Resistance green Reps/Duration 5x ea Therapeutic Exercises Standing Exercises Hs Stretch Reps/Minutes 1x30 Comments stair HC stretch Reps/Minutes 2x 30 Comments RIC Neuro Re-Education Treatment Balance Activities obstacle course Comments not done due to rib pain PT-OP-R Modalities Start: 05/29/18 14:26 Freq: Status: Active Protocol: Document 06/12/18 15:17 [facility] (Rec: 06/12/18 16:05 [facility] [id number]) Hot Pack/Cold Pack Treatment Moist heat Location right ribcage Patient Position Supine Treatment Duration (minutes) 15 PT-OP-T Assessment and Plan Start: 05/29/18 14:26 Freq: Status: Active Protocol: Document 06/12/18 15:17 [facility] (Rec: 06/12/18 16:05 [facility] [id number]) Physical Therapy Assessment Goals 4 Impairment frequent falls Short Term Goal (STG) 50% reduction in frequency of falls STG Duration 07/08/18 Senior Care Goal (LTG) No reported falls for 4 wks LTG Duration 08/26/18 3 Impairment LE weakness and dysfunction ( lower extremity functional scale 19%) Short Term Goal (STG) Patient to be independent in HEP and tolerate 45 PT session without an increase in pain STG Duration 07/08/18 Energy Conservation Representative Goal (LTG) Improve LEFS to at least 60% with LE strength at least 4+/5 LTG Duration 08/26/18 Two Impairment gait dysfunction (Dynamic Gait Index score 14/24) Short Term Goal (STG) Improve DGI to 1724 STG Duration 07/08/18 Senior Care Goal (LTG) Improve dynamic gait index to LTG Duration 08/26/18 One Impairment balance dysfunction (Gallardo balance score 41/56) Short Term Goal (STG) Improve Gallardo balance score to 45/48 STG Duration 07/08/18 Energy Conservation Representative Goal (LTG) Improve Gallardo balance score to to 48/56 to improve safety and decrease falls LTG Duration 08/26/18 Assessment Summary Assessment Some rib soreness even with modification of activity, ended session with moist heat to right ribcage due to pain limiting activity. Physical Therapy Plan Frequency and Duration Frequency of Treatment 2x/Week Duration of Treatment 3 months Plan of Care Start Date 05/29/18 Plan of Care End Date 08/26/18 Therapeutic Interventions Therapeutic Interventions Balance Training Gait Training Home Exercise Program Neuromuscular Re-education Patient/Caregiver Education Self-Care/Home Management Therapeutic Activities Therapeutic Exercises Modalities Cold Pack/Ice Massage Hot Packs Next Visit Focus/Plan Next Note Type Treatment Note Next Visit Plan Assess response to last session, progress ex focused on strengthening, balance, gait.
--- NOTE | 2018-08-02 13:48 | PT.OPDS ---
Current Diagnoses Pain in right leg (06/12/18) Pain in leg, unspecified (06/12/18) Other injury of unspecified body region, initial encounter (06/12/18) Provider Visit Care Team Role Provider Type Eleazar Armstrong MD Attending Provider Physician Primary Care Provider Specialty: Internal Medicine Address: [address] [place] [address], [address] Email: [email or web address] Visit Number Visit Number 4 Discharge Summary PT-OP-B Current Condition Start: 05/29/18 14:26 Freq: Status: Active Protocol: Document 05/29/18 15:19 SAK (Rec: 05/29/18 16:26 SAK [id number]) Current Condition History of Current Condition Onset Date 6 months Current Complaints frequent falls, difficulty getting up off the floor History of Current Condition Reports frequent falls for unknown reason 3-4 per month, as well as multiple almost falls. Fall 2 1/2 months ago resulting in severe hematoma for which he sough medical care in ER multiple times due to pain. Pain has resolved. No longer taking narcotics . Working with sleep center regarding possible narcolepsy. Numbness in toes for a long time, no other numbness or tingling. LE's occasionally give way. Intermittantly uses a straight cane. Prior Functional Status Baseline Function- ADL's Independent Baseline Function- Mobility Independent Baseline Function- Gait independent, no device Current Functional Impairments (Reported) Functional Limitations- ADL's balance dysfunction, falls Functional Limitations- Mobility/Gait frequent falls Personal Factors Other Personal Factors That May Effect depression, excessive sleep ( Therapy/Recovery per patient) PT-OP-C Subjective Start: 05/29/18 14:26 Freq: Status: Active Protocol: Document 06/12/18 15:17 SAK (Rec: 06/12/18 16:05 SAK [id number]) OP-PT Subjective Patient Comments Patient Comments Missed appointment due to sore rib (reports 6 month intermittant) PT-OP-D Balance Start: 05/29/18 14:26 Freq: Status: Active Protocol: Document 05/29/18 15:19 SAK (Rec: 05/31/18 09:58 SAK [id number]) OP-PT Balance Assessment Sitting Balance Static Sitting Balance Ability Normal Dynamic Sitting Balance Ability Normal Balance Tests Gallardo Balance Test Gallardo Impairment Rating 20 to 39% Impaired (Score 34- 44) Functional Reach Functional Reach Impairment Rating 0% Impaired (Score 10) Single Limb Standing Single Limb- Right 0 Single Limb- Left 0 Gao Fall Scale Copyright Permission Murray JM, Murray RM, Kiki SJ. Development of a scale to identify the fall- prone patient. Can J Aging 1989;8;366-7. Elizabeth Gao (2009). Preventing patient falls. (2nd ed). [place]: Bailey. PT-OP-E Functional Tests Start: 05/29/18 14:26 Freq: Status: Active Protocol: Document 05/29/18 15:19 [facility] (Rec: 05/31/18 09:58 [facility] [id number]) Functional Tests Five Times Sit to Stand Test Score 20 sec Timed Up and Go (TUG) Score 12 TUG Impairment Rating 1 to <20% Impaired (Score 11) PT-OP-G Mobility & Gait Start: 05/29/18 14:26 Freq: Status: Active Protocol: Document 05/29/18 15:19 [facility] (Rec: 05/31/18 09:58 [facility] [id number]) OP Mobility Evaluation Transfers Sit to Stand indep Bed to Chair Transfers indep Car Transfers indep Floor Transfers indep but labored OP Gait Assessment Gait Gait Assistance Required: Independent Distance (Feet) 100 Assistive Devices Assistive Device Straight Cane Gait Deviations General Gait Pattern Decreased Stride Length Decreased Feet Clearance Stair Climbing Evaluation Evaluation Level of Assist On Stairs Independent Devices Stair Climbing Assistive Devices Left Railing Right Railing Technique/Endurance Stair Climbing Direction Ascend and Descend Stair Climbing Technique Step Over Step PT-OP-K Range of Motion Start: 05/29/18 14:26 Freq: Status: Active Protocol: Document 05/29/18 15:19 [facility] (Rec: 05/31/18 09:58 [facility] [id number]) Lumbar Spine Range of Motion Lumbar Spine Active ROM Limitations Soft Tissue Tightness Comments mild decrease all motions Hip Goniometric Range of Motion Hip Measured in Degrees monica Hip ROM WFL Yes Knee Goniometric Range of Motion Knee Measured in Degrees monica Knee ROM WFL Yes Knee ROM Limitations Comments pain at end-range flex and extension left knee Ankle and Foot Goniometric Range of Motion Ankle and Foot Measured in Degrees monica Ankle/Foot ROM WFL No Ankle and Foot ROM Limitations ROM Limitations Soft Tissue Tightness Comments ankle df limited to 0 knees extended, 5 knees flexed PT-OP-M Strength Start: 05/29/18 14:26 Freq: Status: Active Protocol: Document 05/29/18 15:19 [facility] (Rec: 05/31/18 09:58 [facility] [id number]) Trunk Strength Trunk Manual Muscle Testing Flexion 3+ Fair+ Extension 3+ Fair+ Hip Strength Hip Manual Muscle Testing monica Flexion (L2) 4- Good- Extension (S1) 3+ Fair+ Abduction 4- Good- External Rotation 4- Good- Internal Rotation 4 Good Knee Strength Knee Manual Muscle Testing monica Flexion (S2) 4+ Good+ Extension (L3) 4+ Good+ Ankle/Foot Strength Ankle and Foot Manual Muscle Testing monica Dorsiflexion (L4) 4 Good Plantarflexion (S1) 4- Good- Inversion 4- Good- Eversion (S1) 4- Good- PT-OP-T Assessment and Plan Start: 05/29/18 14:26 Freq: Status: Active Protocol: Document 08/02/18 13:44 [facility] (Rec: 08/02/18 13:46 [facility] [id number]) Physical Therapy Plan Discharge Physical Therapy Discharge Reasons No Longer Attending PT Next Visit Focus/Plan Next Note Type Discharge Summary
== END 2018-06-12 18:54 ==
LOC: PHYS 15:15
PROVIDERS: PCP Internal Medicine; Visit Provider Internal Medicine
DX: M79.606 Pain in leg, unspecified (principal); M79.604 Pain in right leg; T14.8XXA Other injury of unspecified body region, initial encounter
CPT/HCPCS: 97110; 97112; 97162; 97535

== ENCOUNTER 2018-06-27 05:28 | Emergency (ER) | payer MEDICARE, SELFPAY ==
[2018-06-27] VITALS (7 sets, daily range): BP systolic 101–145; BP diastolic 66–93; PULSE 67–88; RESP 16–24; TEMP 36.9; O2SAT 97–100; BMI 35.5
--- NOTE | 2018-06-27 05:29 | DI.RAD.S_ITS ---
PROCEDURE: XR CHEST 1V INDICATIONS: chest pain TECHNIQUE: One view of the chest was acquired. COMPARISON: [facility], , CHEST 2 VIEW, 08/05/2017, 12:11. FINDINGS: Surgical changes and devices: Partially visualized cervical spine fixation hardware, left chest port and left shoulder arthroplasty as before Lungs and pleura: Low lung volumes with scattered subsegmental atelectasis/scarring. No pleural effusions or pneumothorax. Mediastinum: Mediastinal contours appear normal. Heart size is normal. Bones and chest wall: No suspicious bony lesions. Overlying soft tissues appear unremarkable. IMPRESSION: Low lung volumes with scattered subsegmental atelectasis/scarring. Dictated by: Earnest Ferrari M.D. on 06/27/2018 at 8:16 Approved by: Earnest Ferrari M.D. on 06/27/2018 at 8:18
--- NOTE | 2018-06-27 05:30 | ED.CHESTPAIN ---
HPI - Chest Pain <Cali Todd, DO - Last Filed: 06/27/18 18:33> General Chief Complaint: Chest Pain Stated Complaint: states bad chest pain Time Seen by Provider: 06/27/18 05:28 Source: patient Mode of arrival: ambulatory Limitations: no limitations History of Present Illness HPI narrative: Patient is a 63-year-old male here for evaluation of left-sided chest pain/pressure. He states that it was a fairly sudden onset. Occurred approximately 15-30 minutes prior to arrival here in the emergency department. He was sitting on his couch when it came on. He does have a history of asthma. Took his inhalers at home which did not help any of his symptoms. States that the symptoms are not made worse by movement of his left arm. States that he can reproduce the symptoms by palpation left side of his chest. Not made worse by taking a deep breath. He is not short of breath. He is on Eliquis. He does have a history of atrial fibrillation. Has never had any symptoms like this before. No prior history of coronary artery disease. Related Data Home Medications Medication Instructions Recorded Confirmed fluticasone furoate-vilanterol 1 puff INH DAILY #0 12/03/16 06/27/18 [Breo Ellipta] ipratropium-albuterol [Combivent See Rx Instructions .ROUTE 04/15/17 06/27/18 Respimat] .COMPLEX #0 MDD 6 albuterol sulfate 1.25 mg INH Q4HP PRN #0 05/24/17 06/27/18 albuterol sulfate [Ventolin HFA] 1 puff INH SEE INSTRUCTIONS 08/22/17 06/27/18 Vitamin B-12 1 tab PO DAILY 02/21/18 06/27/18 clobetasol 1 applic TOPICAL SUSA 02/21/18 06/27/18 desonide 1 applic TOPICAL PRN PRN 02/21/18 06/27/18 ketoconazole 1 applic TOPICAL DAILY PRN 02/21/18 06/27/18 multivitamin 1 tab PO DAILY 02/21/18 06/27/18 tamsulosin [Flomax] 0.4 mg PO QNOON 02/21/18 06/27/18 calcium citrate 250 mg tablet 500 mg PO BID tab 03/28/18 06/27/18 apixaban 5 mg tablet 5 mg PO BID 05/30/18 06/27/18 Previous Rx's Medication Instructions Recorded cyclobenzaprine 10 mg tablet 10 mg PO TID PRN #30 tab 01/09/18 clonazepam 2 mg tablet 2 mg PO TID #21 tab 03/15/18 bupropion HCl XL 300 mg 24 hr 300 mg PO QNOON #7 tab 05/17/18 tablet, extended release duloxetine 60 mg capsule,delayed 60 mg PO QNOON #7 cap 05/17/18 release lamotrigine 200 mg tablet 200 mg PO BEDTIME #7 tab 05/17/18 atorvastatin 10 mg tablet 10 mg PO BEDTIME #14 tab 05/18/18 eszopiclone 2 mg tablet 2 mg PO BEDTIME #14 tab 05/18/18 levothyroxine 100 mcg tablet 100 mcg PO QAM #14 tab 05/18/18 liothyronine 25 mcg tablet 12.5 mcg PO DAILY #14 tab 05/18/18 metoprolol tartrate 25 mg tablet 25 mg PO BID #28 tab 05/18/18 montelukast 10 mg tablet 10 mg PO BEDTIME #14 tab 05/18/18 fremanezumab-vfrm 225 mg/1.5 mL 225 mg SUBCUT QMONTH #1.5 ml 05/30/18 subcutaneous syringe armodafinil 250 mg tablet 250 mg PO QAM #90 tab 05/31/18 nortriptyline 10 mg capsule 10 mg PO BEDTIME #30 cap 05/31/18 Allergies Allergy/AdvReac Type Severity Reaction Status Date / Time doxycycline [DOXYCYCLINE] Allergy Mild ITCHING Verified 06/27/18 13:17 ketorolac [KETOROLAC] Allergy Unknown Verified 06/27/18 13:17 NSAIDS (Non-Steroidal AdvReac Unknown TO AVOID Verified 06/27/18 13:17 Anti-Inflamma R/T [NSAIDS (NON-STEROIDAL GASTRIC ANTI-INFLAMMA] BYPASS Review of Systems <Cali Todd, - Last Filed: 06/27/18 18:33> Constitutional Denies fever(s) Cardiovascular Reports chest pain, Denies diaphoresis, Denies pedal edema, Denies edema, Denies leg edema and Denies dyspnea Respiratory Denies dyspnea Gastrointestinal Gastrointestinal: Denies abdominal pain, Denies nausea and Denies vomiting Musculoskeletal Denies myalgias Integumentary/Breasts Denies rash Neurologic Denies behavioral changes Psychiatric Denies behavioral changes Hematologic/Lymphatic Comments: On [facility] <Cali Todd DO - Last Filed: 06/27/18 18:33> Social History marital status: details: to Milka, lives in [place] number of children: 3 household members: spouse lives independently: Yes caregiver/support person: No housing: house pets and animals: Yes education level: college occupational status: other 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 yeimy/moravian: Zoroastrianism travel history: over 6 months ago and other Smoking Status: Former smoker Tobacco: How many years used: 10 Smokeless tobacco user: other quit status: quit date established second hand exposure: Yes (Childhood) alcohol intake: current substance use type: does not use Exam <Cali Todd DO - Last Filed: 06/27/18 18:33> Initial Vital Signs Initial Vital Signs: Vital Signs Temperature 98.4 F 06/27/18 05:35 Pulse Rate 88 06/27/18 05:35 Respiratory Rate 24 06/27/18 05:35 Blood Pressure 145/82 H 06/27/18 05:35 Pulse Oximetry 97 06/27/18 05:35 Const General: cooperative, well developed, well groomed and No acute distress Orientation: alert, awake and oriented x3 HENMT Head: normal to inspection and normocephalic Chest Chest: tenderness (Tender to palpation left anterior chest wall) Resp Effort & Inspection: normal respiratory effort Auscultation: clear to auscultation bilaterally Cardio Rate: regular rate Rhythm: regular rhythm Pulses: radial pulses present GI Inspection: non-distended Palpation: soft Skin Lesions: no lesions Rashes: no rashes Neuro General: alert, awake and oriented x3 Cognition: normal cognition Speech: speech normal Extrem General: normal to inspection, capillary refill normal and No edema Psych Appearance: grossly normal and well kempt <Jarrett Perdomo DO - Last Filed: 06/27/18 19:01> Initial Vital Signs Initial Vital Signs: Vital Signs Temperature 98.4 F 06/27/18 05:35 Pulse Rate 88 06/27/18 05:35 Respiratory Rate 24 06/27/18 05:35 Blood Pressure 145/82 H 06/27/18 05:35 Pulse Oximetry 97 06/27/18 05:35 Scores <DO Irene Mullen Last Filed: 06/27/18 18:33> GCS [place] coma scale eye opening: Spontaneous [place] coma scale verbal response: Orientated [place] coma scale motor response: Obey commands [place] coma scale total score: 15 HEART Score Heart Score history: Slightly Suspicious Heart Score EKG: Normal Heart Score Age: 45-64 years old Heart Score risk factors: 1-2 risk factors Heart Score troponin: < or = to normal limit Heart Score Total: 2 Course <Cali Todd DO - Last Filed: 06/27/18 18:33> Orders Ordered: Discontinued Medications Aspirin (Aspirin Chew) 324 mg PO NOW ONE Stop: 06/27/18 05:41 Last Admin: 06/27/18 06:02 Dose: 324 mg Nitroglycerin (Nitrostat) 0.4 mg SL [id number] PRN PRN Reason: Chest Pain Last Admin: 06/27/18 06:29 Dose: 0.4 mg Admin: 06/27/18 06:18 Dose: 0.4 mg Admin: 06/27/18 06:04 Dose: 0.4 mg Ondansetron HCl (Zofran) 4 mg IV NOW ONE Stop: 06/27/18 06:21 Last Admin: 06/27/18 06:29 Dose: 4 mg Vital Signs - 8 hr 06/27/18 05:35 06/27/18 06:04 06/27/18 06:17 Temperature 98.4 F Pulse Rate 88 77 79 Respiratory Rate 24 Blood Pressure 145/82 H 126/93 H 114/73 Blood Pressure [Right Arm] Pulse Oximetry 97 06/27/18 06:18 06/27/18 06:29 06/27/18 06:51 Temperature Pulse Rate 80 79 71 Respiratory Rate 18 Blood Pressure 114/73 109/66 Blood Pressure [Right Arm] 101/75 Pulse Oximetry 100 <Jarrett Perdomo DO - Last Filed: 06/27/18 19:01> Course Narrative: patient was signed out to me from the nighttime provider. Performed an independent history and physical and have no significant findings not mentioned previously. Patient has had nonischemic type chest pain which is sharp, stabbing and reproducible. His EKGs are nonischemic. Troponin x2 are unremarkable. Heart score is 2. patient's primary care provider has been consulted and myself, nighttime provider agreed that though patient has elevated lipase his symptoms which brought him in our not likely caused by this as he continuously says it is sharp and stabbing left anterior chest pain. The patient is tolerating oral hydration without difficulty. Patient has had questions answered to his apparent satisfaction. He has been given return precautions and his understanding is confirmed by his ability to verbalize these precautions Orders Ordered: Discontinued Medications Aspirin (Aspirin Chew) 324 mg PO NOW ONE Stop: 06/27/18 05:41 Last Admin: 06/27/18 06:02 Dose: 324 mg Nitroglycerin (Nitrostat) 0.4 mg SL [id number] PRN PRN Reason: Chest Pain Last Admin: 06/27/18 06:29 Dose: 0.4 mg Admin: 06/27/18 06:18 Dose: 0.4 mg Admin: 06/27/18 06:04 Dose: 0.4 mg Ondansetron HCl (Zofran) 4 mg IV NOW ONE Stop: 06/27/18 06:21 Last Admin: 06/27/18 06:29 Dose: 4 mg Vital Signs - 8 hr 06/27/18 05:35 06/27/18 06:04 06/27/18 06:17 Temperature 98.4 F Pulse Rate 88 77 79 Respiratory Rate 24 Blood Pressure 145/82 H 126/93 H 114/73 Blood Pressure [Right Arm] Pulse Oximetry 97 06/27/18 06:18 06/27/18 06:29 06/27/18 06:51 Temperature Pulse Rate 80 79 71 Respiratory Rate 18 Blood Pressure 114/73 109/66 Blood Pressure [Right Arm] 101/75 Pulse Oximetry 100 MDM - Chest Pain <Cali Todd DO - Last Filed: 06/27/18 18:33> Lab Data Attestation: I reviewed the patient's lab results. Result diagrams: 06/27/18 05:57 06/27/18 05:57 Lab Results 06/27/18 06/27/18 06/27/18 Range/Units 05:57 05:57 05:57 WBC 8.8 (4.5-11.0) X10^3/uL RBC 5.22 (4.5-5.9) X10^6/uL Hgb 15.9 (13.5-17.5) g/dL Hct 47.5 (41-53) % MCV 90.9 (80-100) fL MCH 30.5 (26-34) PG MCHC 33.6 (30-36) % RDW 13.7 (11.6-14.8) % Plt Count 173 (150-400) X10^3/uL Neut % (Auto) 71.3 (50-75) % Lymph % (Auto) 15.5 L (25-40) % Kinney % (Auto) 12.1 (3-14) % Eos % (Auto) 0.8 L (2-4) % Baso % (Auto) 0.3 (0-2) % Neut # (Auto) 6200 (0120-1535) /uL Lymph # (Auto) 1400 (7365-2544) /uL Kinney # (Auto) 1100 H (0-900) /uL Eos # (Auto) 100 (0-450) /uL Baso # (Auto) 0 (0-100) /uL PT 12.1 (10.1-12.7) SECONDS INR 1.0 (0.9-1.3) APTT 60 H D (26.4-36.2) SECONDS Sodium 140 (137-145) mmol/L Potassium 3.8 (3.4-5.1) mmol/L Chloride 105 (98-107) mmol/L Carbon Dioxide 28 (22-32) mmol/L BUN 16 (9-20) mg/dL Creatinine 0.90 (0.66-1.25) mg/dL Estimated GFR > 60.0 (>60) mL/min BUN/Creatinine Ratio 17.8 (6-22) Glucose 68 L (80-110) mg/dL Calcium 9.2 (8.4-10.2) mg/dL Total Bilirubin 0.4 (0.2-1.3) mg/dL AST 25 (17-59) IU/L ALT 45 (21-72) IU/L Alkaline Phosphatase 83 (38-126) U/L Troponin I < 0.012 (0.01-0.034) ng/mL B-Natriuretic Peptide < 100 (<100) Total Protein 6.6 (6.3-8.2) g/dL Albumin 4.0 (3.5-5.0) g/dL Globulin 2.6 (1.7-4.1) g/dL Albumin/Globulin Ratio 1.5 (1.0-2.8) Lipase 1679 H (23-300) U/L 06/27/18 Range/Units 08:25 WBC (4.5-11.0) X10^3/uL RBC (4.5-5.9) X10^6/uL Hgb (13.5-17.5) g/dL Hct (41-53) % MCV (80-100) fL MCH (26-34) PG MCHC (30-36) % RDW (11.6-14.8) % Plt Count (150-400) X10^3/uL Neut % (Auto) (50-75) % Lymph % (Auto) (25-40) % Kinney % (Auto) (3-14) % Eos % (Auto) (2-4) % Baso % (Auto) (0-2) % Neut # (Auto) (8644-5732) /uL Lymph # (Auto) (7982-5433) /uL Kinney # (Auto) (0-900) /uL Eos # (Auto) (0-450) /uL Baso # (Auto) (0-100) /uL PT (10.1-12.7) SECONDS INR (0.9-1.3) APTT (26.4-36.2) SECONDS Sodium (137-145) mmol/L Potassium (3.4-5.1) mmol/L Chloride (98-107) mmol/L Carbon Dioxide (22-32) mmol/L BUN (9-20) mg/dL Creatinine (0.66-1.25) mg/dL Estimated GFR (>60) mL/min BUN/Creatinine Ratio (6-22) Glucose (80-110) mg/dL Calcium (8.4-10.2) mg/dL Total Bilirubin (0.2-1.3) mg/dL AST (17-59) IU/L ALT (21-72) IU/L Alkaline Phosphatase (38-126) U/L Troponin I < 0.012 (0.01-0.034) ng/mL B-Natriuretic Peptide (<100) Total Protein (6.3-8.2) g/dL Albumin (3.5-5.0) g/dL Globulin (1.7-4.1) g/dL Albumin/Globulin Ratio (1.0-2.8) Lipase (23-300) U/L Imaging Data Chest x-ray: Attestation: I personally reviewed and interpreted this imaging study as follows: My impression: No pneumonia, no acute disease, normal size heart ECG Data Attestation: I personally reviewed and interpreted this ECG as follows: Prior ECG tracings: not available for review Interpretation: Sinus rhythm Ventricular rate 88 Normal QRS Normal QTC Normal axis No ST T wave changes MDM Narrative Medical decision making narrative: Patient is a heart score 2. Initial troponin negative. Chest x-ray is negative. Normal EKG. Does have an elevated lipase however he has no left upper quadrant tenderness. He has no vomiting. No other symptoms consistent with pancreatitis. The pain that brought him in this evening was left-sided chest pain just left of the sternum just below the level of the nipple. It was reproducible with palpation. Repeat troponin ordered for 2 hr after 1st troponin. Patient was given an aspirin in the ER. I discussed the case with Dr. Armstrong who is his primary doctor who states that he can be seen as a outpatient before the end of the week for further evaluation of his lipase and also the chest pain. Care turned over to Dr. Vazquez at 0700 to follow up on repeat troponin. <Jarrett Perdomo DO - Last Filed: 06/27/18 19:01> Lab Data Lab Results 06/27/18 06/27/18 06/27/18 Range/Units 05:57 05:57 05:57 WBC 8.8 (4.5-11.0) X10^3/uL RBC 5.22 (4.5-5.9) X10^6/uL Hgb 15.9 (13.5-17.5) g/dL Hct 47.5 (41-53) % MCV 90.9 (80-100) fL MCH 30.5 (26-34) PG MCHC 33.6 (30-36) % RDW 13.7 (11.6-14.8) % Plt Count 173 (150-400) X10^3/uL Neut % (Auto) 71.3 (50-75) % Lymph % (Auto) 15.5 L (25-40) % Kinney % (Auto) 12.1 (3-14) % Eos % (Auto) 0.8 L (2-4) % Baso % (Auto) 0.3 (0-2) % Neut # (Auto) 6200 (4512-0052) /uL Lymph # (Auto) 1400 (6681-3506) /uL Kinney # (Auto) 1100 H (0-900) /uL Eos # (Auto) 100 (0-450) /uL Baso # (Auto) 0 (0-100) /uL PT 12.1 (10.1-12.7) SECONDS INR 1.0 (0.9-1.3) APTT 60 H D (26.4-36.2) SECONDS Sodium 140 (137-145) mmol/L Potassium 3.8 (3.4-5.1) mmol/L Chloride 105 (98-107) mmol/L Carbon Dioxide 28 (22-32) mmol/L BUN 16 (9-20) mg/dL Creatinine 0.90 (0.66-1.25) mg/dL Estimated GFR > 60.0 (>60) mL/min BUN/Creatinine Ratio 17.8 (6-22) Glucose 68 L (80-110) mg/dL Calcium 9.2 (8.4-10.2) mg/dL Total Bilirubin 0.4 (0.2-1.3) mg/dL AST 25 (17-59) IU/L ALT 45 (21-72) IU/L Alkaline Phosphatase 83 (38-126) U/L Troponin I < 0.012 (0.01-0.034) ng/mL B-Natriuretic Peptide < 100 (<100) Total Protein 6.6 (6.3-8.2) g/dL Albumin 4.0 (3.5-5.0) g/dL Globulin 2.6 (1.7-4.1) g/dL Albumin/Globulin Ratio 1.5 (1.0-2.8) Lipase 1679 H (23-300) U/L 06/27/18 Range/Units 08:25 WBC (4.5-11.0) X10^3/uL RBC (4.5-5.9) X10^6/uL Hgb (13.5-17.5) g/dL Hct (41-53) % MCV (80-100) fL MCH (26-34) PG MCHC (30-36) % RDW (11.6-14.8) % Plt Count (150-400) X10^3/uL Neut % (Auto) (50-75) % Lymph % (Auto) (25-40) % Kinney % (Auto) (3-14) % Eos % (Auto) (2-4) % Baso % (Auto) (0-2) % Neut # (Auto) (2550-3728) /uL Lymph # (Auto) (8239-8651) /uL Kinney # (Auto) (0-900) /uL Eos # (Auto) (0-450) /uL Baso # (Auto) (0-100) /uL PT (10.1-12.7) SECONDS INR (0.9-1.3) APTT (26.4-36.2) SECONDS Sodium (137-145) mmol/L Potassium (3.4-5.1) mmol/L Chloride (98-107) mmol/L Carbon Dioxide (22-32) mmol/L BUN (9-20) mg/dL Creatinine (0.66-1.25) mg/dL Estimated GFR (>60) mL/min BUN/Creatinine Ratio (6-22) Glucose (80-110) mg/dL Calcium (8.4-10.2) mg/dL Total Bilirubin (0.2-1.3) mg/dL AST (17-59) IU/L ALT (21-72) IU/L Alkaline Phosphatase (38-126) U/L Troponin I < 0.012 (0.01-0.034) ng/mL B-Natriuretic Peptide (<100) Total Protein (6.3-8.2) g/dL Albumin (3.5-5.0) g/dL Globulin (1.7-4.1) g/dL Albumin/Globulin Ratio (1.0-2.8) Lipase (23-300) U/L Discharge Plan Departure Patient Disposition: Home Clinical Impression: Atypical chest pain, Elevated lipase Discharge Date/Time: 06/27/18 09:48 Interventions: ED Discharge Assessment Last Done: 06/27/18 09:47 Instructions: DI for Atypical Chest Pain Activity Restrictions/Additional Instructions: I do recommend that today you contact Dr. Armstrong office for a follow-up of your chest pain and also the elevation in your lipase. Return to the emergency department for any new or worsening symptoms 1. Drink plenty of fluids with frequent small sips. 2. For the next 24 hours a clear liquid diet is advised. After that please employ a brat diet which would include bananas, rice, apples, toast. 3. Please follow-up with your doctor in the next 1-2 days. Call the office for an appointment. 4. Please return to the emergency Department for any worsening or persistent symptoms, such as increasing pain or fever. Prescriptions: No Action clonazepam 2 mg tablet 2 mg PO TID Qty: 21 RF: 0 fluticasone furoate-vilanterol [Breo Ellipta] 200 MCG/25 MCG blister with device 1 puff INH DAILY Qty: 0 RF: 0 ipratropium-albuterol [Combivent Respimat] 4 GM mist See Rx Instructions .ROUTE .COMPLEX MDD 6 Qty: 0 RF: 0 albuterol sulfate 1.25 MG/3 ML solution for nebulization 1.25 mg INH Q4HP PRN (Reason: Shortness Of Breath) Qty: 0 RF: 0 cyclobenzaprine 10 mg tablet 10 mg PO TID PRN (Reason: muscle spasm) Qty: 30 RF: 0 bupropion HCl 300 mg tablet extended release 24 hr 300 mg PO QNOON Qty: 7 RF: 0 duloxetine [Cymbalta] 60 mg capsule,delayed release(DR/EC) 60 mg PO QNOON Qty: 7 RF: 0 lamotrigine 200 mg tablet 200 mg PO BEDTIME Qty: 7 RF: 0 atorvastatin [Lipitor] 10 mg tablet 10 mg PO BEDTIME Qty: 14 RF: 0 eszopiclone [Lunesta] 2 mg tablet 2 mg PO BEDTIME Qty: 14 RF: 0 levothyroxine 100 mcg tablet 100 mcg PO QAM Qty: 14 RF: 0 liothyronine [Cytomel] 25 mcg tablet 12.5 mcg PO DAILY Qty: 14 RF: 0 metoprolol tartrate 25 mg tablet 25 mg PO BID Qty: 28 RF: 0 montelukast [Singulair] 10 mg tablet 10 mg PO BEDTIME Qty: 14 RF: 0 calcium citrate 250 mg calcium tablet 500 mg PO BID RF: 0 albuterol sulfate [Ventolin HFA] 90 MCG/PUFF HFA aerosol inhaler 1 puff INH SEE INSTRUCTIONS RF: 0 desonide 0.05 % cream 1 applic Topical PRN PRN (Reason: Inflammation) RF: 0 ketoconazole 2 % shampoo 1 applic Topical DAILY PRN (Reason: Skin Irritation) RF: 0 clobetasol 0.05 % ointment 1 applic Topical SUSA RF: 0 tamsulosin [Flomax] 0.4 mg capsule 0.4 mg PO QNOON RF: 0 multivitamin Tablet 1 tab PO DAILY RF: 0 Vitamin B-12 1 tab PO DAILY RF: 0 Eliquis 5 mg tablet 5 mg PO BID RF: 0 Ajovy 225 mg/1.5 mL syringe 225 mg SUBCUT QMONTH Qty: 1.5 RF: 11 armodafinil 250 mg tablet 250 mg PO QAM Qty: 90 RF: 0 nortriptyline 10 mg capsule 10 mg PO BEDTIME Qty: 30 RF: 0 Referrals: Eleazar Armstrong MD [Primary Care Provider] -
[2018-06-27] MEDS: ASPIRIN 81 MG TAB 324 MG PO (06:02)
[2018-06-27] MEDS: NITROGLYCERIN 0.4 MG SL TAB SL ×3 (06:04→06:29)
[2018-06-27 06:11] LABS: Add Manual Diff / Slide Review NO; Basophils Absolute Auto 0 /uL (0-100); Basophils Percent Auto 0.3 % (0-2); Eosinophils Absolute Auto 100 /uL (0-450); Eosinophils Percent Auto 0.8 % (2-4); Hematocrit 47.5 % (41-53); Hemoglobin 15.9 g/dL (13.5-17.5); Lymphocytes Absolute Auto 1400 /uL (1100-4500); Lymphocytes Percent Auto 15.5 % (25-40); Mean Corpuscular HGB Conc 33.6 % (30-36); Mean Corpuscular Hemoglobin 30.5 PG (26-34); Mean Corpuscular Volume 90.9 fL (80-100); Monocytes Absolute Auto 1100 /uL (0-900); Monocytes Percent Auto 12.1 % (3-14); Neutrophils Absolute Auto 6200 /uL (1500-7000); Neutrophils Percent Auto 71.3 % (50-75); Platelet Count 173 X10^3/uL (150-400); Red Blood Cell Count 5.22 X10^6/uL (4.5-5.9); Red Cell Distribution Width 13.7 % (11.6-14.8); White Blood Cell Count 8.8 X10^3/uL (4.5-11.0)
[2018-06-27 06:16] LABS: Prothrombin Time 12.1 SECONDS (10.1-12.7)
[2018-06-27 06:19] LABS: PTT Partial Thromboplastin Tim 60 SECONDS (26.4-36.2)
[2018-06-27 06:20] LABS: Alanine Aminotransferase 45 IU/L (21-72); Albumin Globulin Ratio 1.5 (1.0-2.8); Alkaline Phosphatase 83 U/L (38-126); Aspartate Aminotransferase 25 IU/L (17-59); BUN Creatinine Ratio 17.8 (6-22); Bilirubin Total 0.4 mg/dL (0.2-1.3); Blood Urea Nitrogen 16 mg/dL (9-20); Calcium 9.2 mg/dL (8.4-10.2); Carbon Dioxide 28 mmol/L (22-32); Chloride 105 mmol/L (98-107); Estimated Glomerular Filt Rate > 60.0 mL/min (>60); Globulin 2.6 g/dL (1.7-4.1); Glucose 68 mg/dL (80-110); HEMOLYSIS < 15 (0-50); Lipase 1679 U/L (23-300); Potassium 3.8 mmol/L (3.4-5.1); Sodium 140 mmol/L (137-145); Total Protein 6.6 g/dL (6.3-8.2)
[2018-06-27 06:25] LABS: B Type Natriuretic Peptide < 100 (<100)
[2018-06-27] MEDS: ONDANSETRON 4 MG/2 ML INJ IV (06:29)
[2018-06-27 06:32] LABS: Troponin I < 0.012 ng/mL (0.01-0.034)
[2018-06-27 08:56] LABS: Troponin I < 0.012 ng/mL (0.01-0.034)
== END 2018-06-27 09:48 | disposition home or self-care (01) ==
PROVIDERS: Emergency Medicine; Emergency Provider Emergency Medicine; PCP Internal Medicine
DX: R07.89 Other chest pain (principal)
CPT/HCPCS: 36415; 36591; 71045; 80053; 83690; 83880; 84484; 85025; 85610; 85730; 93005; 96374; 99214; 99283; 99285; J2405

== ENCOUNTER 2018-08-29 12:10 | Emergency (ER) | payer MEDICARE, SELFPAY ==
[2018-08-29 12:13] VITALS: BP 158/93; PULSE 99; RESP 20; O2SAT 97
--- NOTE | 2018-08-29 12:44 | DI.RAD.S_ITS ---
PROCEDURE: XR CHEST 1V INDICATIONS: choked on pill, SOB TECHNIQUE: One view of the chest was acquired. COMPARISON: [facility], CR, XR CHEST 1V, 06/27/2018, 5:34. FINDINGS: Surgical changes and devices: Cervical spine fixation hardware and left shoulder arthroplasty are stable. Left chest wall Port-A-Cath is stable. Lungs and pleura: Lungs are clear. No pleural effusions or pneumothorax. Mediastinum: Mediastinal contours appear normal. Heart size is normal. Bones and chest wall: No suspicious bony lesions. Overlying soft tissues appear unremarkable. IMPRESSION: No acute cardiopulmonary disease process. Dictated by: Beckie Pelayo MD, PhD on 08/29/2018 at 13:23 Approved by: Beckie Pelayo MD, PhD on 08/29/2018 at 13:24
[2018-08-29] MEDS: ALBUTEROL 2.5 MG/3 ML NEB (ADULT) INH (12:45)
[2018-08-29] MEDS: ALBUTEROL/IPRATROPIUM 3 ML AMPUL INH (12:46)
[2018-08-29] MEDS: methylPREDNISolone 125 MG/2 ML VIAL IV (12:47)
[2018-08-29] MEDS: GLUCAGON,HUMAN RECOMBINANT 1 MG/ML VIAL IV (12:47)
[2018-08-29 12:48] VITALS: PULSE 97; O2SAT 96
[2018-08-29] MEDS: MORPHINE 2 MG/ML INJ IV (13:22)
[2018-08-29 13:54] VITALS: BP 128/70; PULSE 93; RESP 18; O2SAT 94
--- NOTE | 2018-08-29 14:02 | PC.NURSE ---
Addendum entered by Palma Montoya R.N. 08/29/18 14:18: Pt states he feels like the vitamin has passed, but it has caused a painful cough that is hurting his chest and back. States all I need is 2mg Dilaudid and send me home. Notified provider. Original Note: Gave patient morphine as ordered. Pt states I have a high tolerance and I usually get 2mg Dilaudid. Stated morphine only helped slightly with his head pain and he will need 1mg of Dilaudid on top of this. Notified provider. No new orders received at this time. Notified patient that provider will be in to talk to him.
[2018-08-29] MEDS: HYDROMORPHONE 1 MG INJ IV (14:38)
[2018-08-29 14:47] VITALS: BP 129/91; PULSE 89; RESP 16; O2SAT 97
--- NOTE | 2018-08-31 13:24 | ED.CHESTPAIN ---
HPI - Chest Pain General Chief Complaint: Chest Pain Stated Complaint: PILL IS STUCK Time Seen by Provider: 08/29/18 12:34 Source: patient Mode of arrival: ambulatory Limitations: no limitations History of Present Illness HPI narrative: The patient presents the emergency department complaining of chest burning and pain after attempting to swallow a multivitamin, and feeling as though it got stuck in his throat/upper chest. Patient states the burning feeling has slowly moved down his chest and is now in the middle of his substernal area. He states that he has not had any shortness of breath necessarily, but that this whole thing has made him gag and cough, any feels as though his asthma is acting up. Patient did not distinctly feel the pill go in to his airways, though he is concerned that this may have happened, just because he keeps coughing. Patient states he has also caused his chronic back pain to flare up but coughing so hard. Patient states he was totally fine before the pill got stuck about 1 hour ago. He has not been ill recently. He was not having any chest discomfort. No other complaints at this time. Related Data Home Medications Medication Instructions Recorded Confirmed Breo Ellipta 1 puff INH DAILY #0 12/03/16 08/29/18 Combivent Respimat See Rx Instructions .ROUTE 04/15/17 08/29/18 .COMPLEX #0 MDD 6 albuterol sulfate 1.25 mg INH Q4HP PRN #0 05/24/17 08/29/18 albuterol sulfate [Ventolin HFA] 1 puff INH SEE INSTRUCTIONS 08/22/17 08/29/18 Vitamin B-12 1 tab PO DAILY 02/21/18 08/29/18 clobetasol 1 applic TOPICAL SUSA 02/21/18 08/29/18 desonide 1 applic TOPICAL PRN PRN 02/21/18 08/29/18 ketoconazole 1 applic TOPICAL DAILY PRN 02/21/18 08/29/18 multivitamin 1 tab PO DAILY 02/21/18 08/29/18 tamsulosin [Flomax] 0.4 mg PO QNOON 02/21/18 08/29/18 calcium citrate 250 mg tablet 500 mg PO BID tab 03/28/18 08/29/18 apixaban 5 mg tablet 5 mg PO BID 05/30/18 08/29/18 oxycodone 5 mg tablet 5 mg PO Q6H PRN #10 tab 07/28/18 08/29/18 sumatriptan 100 mg tablet 200 mg PO Q2-4H PRN #12 tab 08/11/18 08/29/18 sumatriptan 6 mg/0.5 mL 1 dose SUBCUT PRN PRN #10 ml 08/11/18 08/29/18 subcutaneous pen injector sumatriptan 20 mg NASAL Q2H PRN 08/29/18 08/29/18 Previous Rx's Medication Instructions Recorded cyclobenzaprine 10 mg tablet 10 mg PO TID PRN #30 tab 01/09/18 bupropion HCl XL 300 mg 24 hr 300 mg PO QNOON #7 tab 05/17/18 tablet, extended release eszopiclone 2 mg tablet 2 mg PO BEDTIME #14 tab 05/18/18 liothyronine 25 mcg tablet 12.5 mcg PO DAILY #14 tab 05/18/18 metoprolol tartrate 25 mg tablet 25 mg PO BID #28 tab 05/18/18 montelukast 10 mg tablet 10 mg PO BEDTIME #14 tab 05/18/18 fremanezumab-vfrm 225 mg/1.5 mL 225 mg SUBCUT QMONTH #1.5 ml 05/30/18 subcutaneous syringe armodafinil 250 mg tablet 250 mg PO QAM #90 tab 05/31/18 nortriptyline 10 mg capsule 10 mg PO BEDTIME #30 cap 05/31/18 duloxetine 60 mg capsule,delayed 60 mg PO QNOON #30 cap 06/30/18 release atorvastatin 10 mg tablet 10 mg PO BEDTIME #30 tab 07/24/18 levothyroxine 100 mcg tablet 100 mcg PO QAM #90 tab 08/01/18 clonazepam 1 mg tablet 1.5 mg PO QAM #42 tab 08/15/18 clonazepam 2 mg tablet 2 mg PO BEDTIME #56 tab 08/15/18 lamotrigine 200 mg tablet 200 mg PO BEDTIME #30 tab 08/24/18 Allergies Allergy/AdvReac Type Severity Reaction Status Date / Time doxycycline [DOXYCYCLINE] Allergy Mild ITCHING Verified 08/29/18 11:02 ketorolac [KETOROLAC] Allergy Unknown Verified 08/29/18 11:02 NSAIDS (Non-Steroidal AdvReac Unknown TO AVOID Verified 08/29/18 11:02 Anti-Inflamma R/T [NSAIDS (NON-STEROIDAL GASTRIC ANTI-INFLAMMA] BYPASS Review of Systems Constitutional Denies chills, Denies fever(s), Denies lethargy and Denies weakness Eyes Denies change in vision, Denies eye discharge, Denies irritation and Denies loss of vision ENT Ears, Nose, Mouth, and Throat: Denies change in voice, Denies neck pain and Denies sore throat Cardiovascular Reports chest pain (Discomfort), Denies irregular heart rhythm, Denies lightheadedness, Denies palpitations, Denies dyspnea, Denies dyspnea on exertion and Denies orthopnea Respiratory Denies cough, Denies dyspnea, Denies dyspnea on exertion and Denies wheezing Gastrointestinal Gastrointestinal: Denies abdominal pain, Denies change in bowel habits, Denies diarrhea, Denies nausea and Denies vomiting Comments: Dysphagia, pill impaction Genitourinary Denies hematuria, Denies flank pain, Denies urinary incontinence and Denies urinary urgency Musculoskeletal Denies neck pain Integumentary/Breasts Denies pruritus, Denies erythema, Denies rash and Denies wounds Neurologic Denies confusion, Denies loss of vision and Denies weakness Psychiatric Denies anxiety, Denies confusion, Denies depression, Denies homicidal ideation and Denies suicidal ideation Endocrine Denies palpitations Hematologic/Lymphatic Denies easy bruising Allergic/Immunologic Denies wheezing [facility] Medical History Mixed hyperlipidemia (Chronic) Hypothyroidism (Chronic) Major depressive disorder, recurrent episode, severe (Chronic) Anxiety (Chronic) Paroxysmal atrial fibrillation (Chronic) Chronic pain syndrome (Chronic 11/08/16) Post traumatic stress disorder (PTSD) (Chronic) Sleep apnea (Chronic) Cognitive disorder (Chronic 04/24/14) Obesity with body mass index (BMI) of 30.0 to 39.9 (Chronic 12/06/14) Other iron deficiency anemia (Chronic 02/03/15) Chronic left shoulder pain (Chronic 01/20/16) Chronic obstructive pulmonary disease (Chronic 08/05/17) H/O renal calculi (Inactive) H/O migraine (Inactive) S/P ECT (electroconvulsive therapy) (Acute) Sarcoidosis (Chronic) Psoriasis (Chronic) Iron deficiency (Chronic) 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) Vitamin B12 deficiency (Chronic 02/19/11) History of stroke (Inactive) Hypersomnia (Chronic) Narcotic dependence (Resolved 09/01/16) Patent foramen ovale (Resolved) Pneumonia (Resolved) Surgical History History of Cris-en-Y gastric bypass (Inactive ~2003) History of gastric bypass (Inactive ~2003) History of total shoulder replacement (Inactive ~12/2015) S/P lumbar laminectomy (Inactive ~10/2017) Family History Father No problems noted. Mother No problems noted. 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 yeimy/confucianism: [employer] travel history: over 6 months ago and other Smoking Status: Former smoker Tobacco: How many years used: 10 Smokeless tobacco user: other quit status: quit date established second hand exposure: Yes (Childhood) alcohol intake: current substance use type: does not use Family History Father No problems noted. Mother No problems noted. 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: [employer] travel history: over 6 months ago and other Smoking Status: Former smoker Tobacco: How many years used: 10 Smokeless tobacco user: other quit status: quit date established second hand exposure: Yes (Childhood) alcohol intake: current substance use type: does not use Exam Initial Vital Signs Initial Vital Signs: Vital Signs Pulse Rate 99 H 08/29/18 12:13 Respiratory Rate 20 08/29/18 12:13 Blood Pressure 158/93 H 08/29/18 12:13 Pulse Oximetry 97 08/29/18 12:13 Const General: cooperative, well developed and No in distress Nutritional Appearance: well nourished Orientation: alert, awake, oriented x3 and not confused [facility] Head: normocephalic and atraumatic Ears: external ears normal and TM's normal bilaterally Nose: external nose normal and No nasal discharge Face and sinus: sinuses nontender, face symmetric, no sinus tenderness and No dry mucous membranes Mouth: oral mucosae normal and moist mucous membranes Teeth and gingiva: dentition normal Throat: tonsils normal and uvula midline Eyes General: appearance normal, both eyes and all related structures Eyelids: eyelids normal Conjunctivae: conjunctivae normal Sclera: sclerae normal Pupils: PERRL EOM: EOM intact bilaterally Neck Neck: normal visual inspection, trachea midline, No lymphadenopathy, No midline deformity and No JVD Lymphatic: No lymphedema Chest Chest: normal inspection of the chest Resp Effort & Inspection: normal respiratory effort, able to speak in complete sentences, no respiratory distress and no use of accessory muscles Auscultation: clear to auscultation bilaterally, no rales, no rhonchi and wheezes (Mild, diffuse, bilaterally) Other: The patient is having intermittent, hard coughing fits, with no production of sputum. Cardio Rate: regular rate Rhythm: regular rhythm Heart Sounds: no click, no gallops, no murmurs and no rubs Pulses: normal peripheral pulses GI Inspection: non-distended Palpation: soft, no hepatosplenomegaly, No guarding, No pulsatile mass and No tender Auscultation: normal bowel sounds Back/Spine/Pelvis Back: No CVA tenderness Cervical Spine: cervical ROM normal and No pain with cervical ROM Thoracic/Lumbar Spine: thoracic and lumbar spine normal to inspection Skin General: no rashes or lesions noted, No jaundice and No petechiae Neuro General: alert, oriented x3, gait normal and no focal motor deficits Speech: speech normal Extrem General: full ROM, no clubbing, cyanosis or edema, no pedal edema and no calf tenderness Psych Appearance: well kempt Mental Status: mental status grossly normal Attitude: cooperative Thought Content: normal and suicidality Judgment: judgment good Course Course Narrative: Patient was worked up with a chest x-ray, and given a dose of glucagon, as well as 2 mg of morphine, both IV, after which he was found to be feeling better in terms of his chest discomfort and coughing. He was also given a DuoNeb. However, patient requested 2 mg of Dilaudid for his back pain. I did discuss with him that he has already received morphine, and patient asked if he could have 1 mg, because he felt that he had strained his back coughing. I did give him a single mg of Dilaudid, and have advised him to take his home medications as needed for further discomfort. Patient's chest x-ray does not show any abnormalities whatsoever, and I suspect his discomfort has been from esophageal spasm around the pill. Patient is clinically improved, and his is here to drive him home. We have discussed the usual indications for return, as well as symptomatic management at home. Orders Ordered: Discontinued Medications Albuterol (Ventolin) 2.5 mg INH NOW ONE Stop: 08/29/18 12:39 Last Admin: 08/29/18 12:45 Dose: 2.5 mg Albuterol/Ipratropium (Duoneb) 3 ml INH NOW ONE Stop: 08/29/18 12:36 Last Admin: 08/29/18 12:46 Dose: 3 ml Glucagon (Glucagen) 1 mg IV NOW ONE Stop: 08/29/18 12:36 Last Admin: 08/29/18 12:47 Dose: 1 mg Hydromorphone HCl (Dilaudid) 1 mg IV NOW ONE Stop: 08/29/18 14:34 Last Admin: 08/29/18 14:38 Dose: 1 mg Methylprednisolone (Solu-Medrol 125 Mg Vial) 125 mg IV NOW ONE Stop: 08/29/18 12:36 Last Admin: 08/29/18 12:47 Dose: 125 mg Morphine Sulfate (Morphine) 2 mg IV NOW ONE Stop: 08/29/18 13:12 Last Admin: 08/29/18 13:22 Dose: 2 mg MDM - Chest Pain Medical Records Data Attestation: I reviewed the patient's medical records. Imaging Data Chest x-ray: Radiologist's impression: ROCEDURE: XR CHEST 1V INDICATIONS: choked on pill, SOB TECHNIQUE: One view of the chest was acquired. COMPARISON: [facility], , XR CHEST 1V, 06/27/2018, 5:34. FINDINGS: Surgical changes and devices: Cervical spine fixation hardware and left shoulder arthroplasty are stable. Left chest wall Port-A-Cath is stable. Lungs and pleura: Lungs are clear. No pleural effusions or pneumothorax. Mediastinum: Mediastinal contours appear normal. Heart size is normal. Bones and chest wall: No suspicious bony lesions. Overlying soft tissues appear unremarkable. IMPRESSION: No acute cardiopulmonary disease process. Dictated by: Beckie Pelayo MD, PhD on 08/29/2018 at 13:23 Approved by: Beckie Pelayo MD, PhD on 08/29/2018 at 13:24 Discharge Plan Departure Patient Disposition: Home Clinical Impression: Impacted esophageal foreign body Qualifiers: Encounter type: initial encounter Qualified Code(s): T18.108A - Unspecified foreign body in esophagus causing other injury, initial encounter Back pain Qualifiers: Back pain location: low back pain Chronicity: acute Back pain laterality: bilateral Sciatica presence: without sciatica Qualified Code(s): M54.5 - Low back pain Discharge Date/Time: 08/29/18 14:53 Interventions: ED Discharge Assessment Last Done: 08/29/18 14:56 Instructions: DI for Esophageal Dysphagia Activity Restrictions/Additional Instructions: Your chest x-ray looks good, and shows no evidence of foreign material in your lungs. Prescriptions: No Action sumatriptan succinate 100 mg tablet 200 mg PO Q2-4H PRN (Reason: Migraine Headache) Qty: 12 RF: 0 sumatriptan succinate 6 mg/0.5 mL pen injector 1 dose SUBCUT PRN PRN (Reason: Migraine Headache) Qty: 10 RF: 0 Breo Ellipta 200 MCG/25 MCG blister with device 1 puff INH DAILY Qty: 0 RF: 0 Combivent Respimat 4 GM mist See Rx Instructions .ROUTE .COMPLEX MDD 6 Qty: 0 RF: 0 albuterol sulfate 1.25 MG/3 ML solution for nebulization 1.25 mg INH Q4HP PRN (Reason: Shortness Of Breath) Qty: 0 RF: 0 cyclobenzaprine 10 mg tablet 10 mg PO TID PRN (Reason: muscle spasm) Qty: 30 RF: 0 bupropion HCl 300 mg tablet extended release 24 hr 300 mg PO QNOON Qty: 7 RF: 0 eszopiclone [Lunesta] 2 mg tablet 2 mg PO BEDTIME Qty: 14 RF: 0 liothyronine [Cytomel] 25 mcg tablet 12.5 mcg PO DAILY Qty: 14 RF: 0 metoprolol tartrate 25 mg tablet 25 mg PO BID Qty: 28 RF: 0 montelukast [Singulair] 10 mg tablet 10 mg PO BEDTIME Qty: 14 RF: 0 duloxetine [Cymbalta] 60 mg capsule,delayed release(DR/EC) 60 mg PO QNOON Qty: 30 RF: 2 atorvastatin [Lipitor] 10 mg tablet 10 mg PO BEDTIME Qty: 30 RF: 3 levothyroxine 100 mcg tablet 100 mcg PO QAM Qty: 90 RF: 1 clonazepam 1 mg tablet 1.5 mg PO QAM Qty: 42 RF: 0 clonazepam 2 mg tablet 2 mg PO BEDTIME Qty: 56 RF: 0 lamotrigine 200 mg tablet 200 mg PO BEDTIME Qty: 30 RF: 2 calcium citrate 250 mg calcium tablet 500 mg PO BID RF: 0 oxycodone 5 mg tablet 5 mg PO Q6H PRN (Reason: pain) Qty: 10 RF: 0 albuterol sulfate [Ventolin HFA] 90 MCG/PUFF HFA aerosol inhaler 1 puff INH SEE INSTRUCTIONS RF: 0 sumatriptan 20 mg/actuation spray,non-aerosol 20 mg NASAL Q2H PRN (Reason: Migraine Headache) RF: 0 desonide 0.05 % cream 1 applic Topical PRN PRN (Reason: Inflammation) RF: 0 ketoconazole 2 % shampoo 1 applic Topical DAILY PRN (Reason: Skin Irritation) RF: 0 clobetasol 0.05 % ointment 1 applic Topical SUSA RF: 0 tamsulosin [Flomax] 0.4 mg capsule 0.4 mg PO QNOON RF: 0 multivitamin Tablet 1 tab PO DAILY RF: 0 Vitamin B-12 1 tab PO DAILY RF: 0 Eliquis 5 mg tablet 5 mg PO BID RF: 0 Ajovy 225 mg/1.5 mL syringe 225 mg SUBCUT QMONTH Qty: 1.5 RF: 11 armodafinil 250 mg tablet 250 mg PO QAM Qty: 90 RF: 0 nortriptyline 10 mg capsule 10 mg PO BEDTIME Qty: 30 RF: 0 Referrals: Eleazar Armstrong MD [Primary Care Provider] -
== END 2018-08-29 14:53 | disposition home or self-care (01) ==
PROVIDERS: Emergency Provider Emergency Medicine; PCP Internal Medicine
DX: T18.108A Unspecified foreign body in esophagus causing other injury, initial encounter (principal); M54.5 Low back pain; R06.02 Shortness of breath
CPT/HCPCS: 71045; 94640; 96374; 96375; 99282; 99284; J1170; J1610; J2270; J2930; J7613

== ENCOUNTER 2018-10-09 09:44 | Emergency (ER) | payer MEDICARE, SELFPAY ==
[2018-10-09] VITALS (10 sets, daily range): BP systolic 135–166; BP diastolic 78–111; PULSE 62–102; RESP 18; TEMP 37.2; O2SAT 94–99
--- NOTE | 2018-10-09 11:07 | ED.ABDPAIN ---
HPI - Abdominal Pain General Chief Complaint: Abdominal Pain Stated Complaint: abdominal pain Time Seen by Provider: 10/09/18 10:10 Source: patient Mode of arrival: ambulatory Limitations: no limitations History of Present Illness HPI narrative: Patient comes to the emergency department complaining of abdominal pain in his right upper quadrant. He states he has had this on and off for the last 6 months, but thought it would just go away, so he really did not bring it up with his doctor. He states he has had a couple of chest x-rays to see if the pain is coming from his lungs or his ribs, but this has been negative. Patient states ?I need an MRI or a CT?. Patient is not known to have any gallbladder disorders. He is not known to have liver disease. He states that he has not had any cough, chest pain, or shortness of breath. No fevers. He states it does hurt more in the right upper quadrant/rib area when he takes a deep breath, twists, or tries to sit up. He denies any injury. No dysuria. He states he has a history of kidney stones but does not feel like this. No diarrhea. No nausea vomiting. No other complaints this time. Related Data Home Medications Medication Instructions Recorded Confirmed Breo Ellipta 1 puff INH DAILY #0 12/03/16 10/09/18 Combivent Respimat See Rx Instructions .ROUTE 04/15/17 10/09/18 .COMPLEX #0 MDD 6 albuterol sulfate 1.25 mg INH Q4HP PRN #0 05/24/17 10/09/18 albuterol sulfate [Ventolin HFA] 1 puff INH SEE INSTRUCTIONS 08/22/17 10/09/18 Vitamin B-12 1 tab PO DAILY 02/21/18 10/09/18 clobetasol 1 applic TOPICAL SUSA 02/21/18 10/09/18 desonide 1 applic TOPICAL PRN PRN 02/21/18 10/09/18 ketoconazole 1 applic TOPICAL DAILY PRN 02/21/18 10/09/18 multivitamin 1 tab PO DAILY 02/21/18 10/09/18 tamsulosin [Flomax] 0.4 mg PO QNOON 02/21/18 10/09/18 calcium citrate 250 mg tablet 500 mg PO BID tab 03/28/18 10/09/18 apixaban 5 mg tablet 5 mg PO BID 05/30/18 10/09/18 sumatriptan 100 mg tablet 200 mg PO Q2-4H PRN #12 tab 08/11/18 10/09/18 sumatriptan 6 mg/0.5 mL 1 dose SUBCUT PRN PRN #10 ml 08/11/18 10/09/18 subcutaneous pen injector sumatriptan 20 mg NASAL Q2H PRN 08/29/18 10/09/18 clonazepam 2 mg PO TID 10/09/18 10/09/18 Previous Rx's Medication Instructions Recorded cyclobenzaprine 10 mg tablet 10 mg PO TID PRN #30 tab 01/09/18 bupropion HCl XL 300 mg 24 hr 300 mg PO QNOON #7 tab 05/17/18 tablet, extended release eszopiclone 2 mg tablet 2 mg PO BEDTIME #14 tab 05/18/18 liothyronine 25 mcg tablet 12.5 mcg PO DAILY #14 tab 05/18/18 metoprolol tartrate 25 mg tablet 25 mg PO BID #28 tab 05/18/18 montelukast 10 mg tablet 10 mg PO BEDTIME #14 tab 05/18/18 fremanezumab-vfrm 225 mg/1.5 mL 225 mg SUBCUT QMONTH #1.5 ml 05/30/18 subcutaneous syringe nortriptyline 10 mg capsule 10 mg PO BEDTIME #30 cap 05/31/18 duloxetine 60 mg capsule,delayed 60 mg PO QNOON #30 cap 06/30/18 release atorvastatin 10 mg tablet 10 mg PO BEDTIME #30 tab 07/24/18 levothyroxine 100 mcg tablet 100 mcg PO QAM #90 tab 08/01/18 lamotrigine 200 mg tablet 200 mg PO BEDTIME #30 tab 08/24/18 hydrocodone-acetaminophen 1 tab PO Q4H PRN #14 tab 10/09/18 ondansetron 4 mg PO Q6H PRN #20 tab 10/09/18 Allergies Allergy/AdvReac Type Severity Reaction Status Date / Time doxycycline [DOXYCYCLINE] Allergy Mild ITCHING Verified 10/09/18 09:53 ketorolac [KETOROLAC] Allergy Unknown Verified 10/09/18 09:53 NSAIDS (Non-Steroidal AdvReac Unknown TO AVOID Verified 10/09/18 09:53 Anti-Inflamma R/T [NSAIDS (NON-STEROIDAL GASTRIC ANTI-INFLAMMA] BYPASS Review of Systems Constitutional Denies chills, Denies fever(s), Denies lethargy and Denies weakness Eyes Denies change in vision, Denies eye discharge, Denies irritation and Denies loss of vision ENT Ears, Nose, Mouth, and Throat: Denies change in voice, Denies neck pain and Denies sore throat Cardiovascular Denies chest pain, Denies irregular heart rhythm, Denies lightheadedness, Denies palpitations, Denies dyspnea, Denies dyspnea on exertion and Denies orthopnea Respiratory Denies cough, Denies dyspnea, Denies dyspnea on exertion and Denies wheezing Gastrointestinal Gastrointestinal: Reports abdominal pain, Denies change in bowel habits, Denies diarrhea, Denies nausea and Denies vomiting Genitourinary Denies hematuria, Denies flank pain, Denies urinary incontinence and Denies urinary urgency Musculoskeletal Denies neck pain Integumentary/Breasts Denies pruritus, Denies erythema, Denies rash and Denies wounds Neurologic Denies confusion, Denies loss of vision and Denies weakness Psychiatric Denies anxiety, Denies confusion, Denies depression, Denies homicidal ideation and Denies suicidal ideation Endocrine Denies palpitations Hematologic/Lymphatic Denies easy bruising Allergic/Immunologic Denies wheezing [facility] Medical History (Updated 10/09/18 @ 15:36 by Leticia Nava MD) Insomnia (Chronic) Mixed hyperlipidemia (Chronic) Hypothyroidism (Chronic) Major depressive disorder, recurrent episode, severe (Chronic) Anxiety (Chronic) Paroxysmal atrial fibrillation (Chronic) Chronic pain syndrome (Chronic 11/08/16) Post traumatic stress disorder (PTSD) (Chronic) Sleep apnea (Ruled-out) Cognitive disorder (Chronic 04/24/14) Obesity with body mass index (BMI) of 30.0 to 39.9 (Chronic 12/06/14) Other iron deficiency anemia (Chronic 02/03/15) Chronic left shoulder pain (Chronic 01/20/16) Chronic obstructive pulmonary disease (Chronic 08/05/17) H/O renal calculi (Inactive) H/O migraine (Inactive) S/P ECT (electroconvulsive therapy) (Acute) Sarcoidosis (Chronic) Psoriasis (Chronic) Iron deficiency (Chronic) 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) Vitamin B12 deficiency (Chronic 02/19/11) History of stroke (Inactive) Hypersomnia (Chronic) Narcotic dependence (Resolved 09/01/16) Patent foramen ovale (Resolved) Pneumonia (Resolved) Surgical History (Updated 10/09/18 @ 11:34 by Leticia Nava MD) History of gastric bypass (Inactive ~2003) History of total shoulder replacement (Inactive ~12/2015) S/P lumbar laminectomy (Inactive ~10/2017) History of Cris-en-Y gastric bypass (Inactive ~2003) Family History Father No problems noted. Mother No problems noted. 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 travel history: over 6 months ago and other Smoking Status: Former smoker Tobacco: How many years used: 10 Smokeless tobacco user: other quit status: quit date established second hand exposure: Yes (Childhood) alcohol intake: current substance use type: does not use Exam Initial Vital Signs Initial Vital Signs: Vital Signs Temperature 99.0 F 10/09/18 09:45 Pulse Rate 102 H 10/09/18 09:45 Respiratory Rate 18 10/09/18 09:45 Blood Pressure 166/102 H 10/09/18 09:45 Pulse Oximetry 99 10/09/18 09:45 Const General: cooperative and well developed Nutritional Appearance: well nourished Orientation: alert, awake, oriented x3 and not confused [facility] Head: normocephalic and atraumatic Ears: external ears normal and TM's normal bilaterally Nose: external nose normal and No nasal discharge Face and sinus: sinuses nontender, face symmetric, no sinus tenderness and No dry mucous membranes Mouth: oral mucosae normal and moist mucous membranes Teeth and gingiva: dentition normal Throat: tonsils normal and uvula midline Eyes General: appearance normal, both eyes and all related structures Eyelids: eyelids normal Conjunctivae: conjunctivae normal Sclera: sclerae normal Pupils: PERRL EOM: EOM intact bilaterally Neck Neck: normal visual inspection, trachea midline, No lymphadenopathy, No midline deformity and No JVD Lymphatic: No lymphedema Chest Chest: normal inspection of the chest Resp Effort & Inspection: normal respiratory effort, able to speak in complete sentences, no respiratory distress and no use of accessory muscles Auscultation: clear to auscultation bilaterally, no rales, no rhonchi and no wheezes Cardio Rate: regular rate Rhythm: regular rhythm Heart Sounds: no click, no gallops, no murmurs and no rubs Pulses: normal peripheral pulses GI Inspection: non-distended Palpation: soft, no hepatosplenomegaly, No guarding, No pulsatile mass and tender (Mild, right upper quadrant.) Auscultation: normal bowel sounds Back/Spine/Pelvis Back: No CVA tenderness Cervical Spine: cervical ROM normal and No pain with cervical ROM Thoracic/Lumbar Spine: thoracic and lumbar spine normal to inspection Skin General: no rashes or lesions noted, No jaundice and No petechiae Neuro General: alert, oriented x3, gait normal and no focal motor deficits Speech: speech normal Extrem General: full ROM, no clubbing, cyanosis or edema, no pedal edema and no calf tenderness Psych Appearance: well kempt Mental Status: mental status grossly normal Attitude: cooperative Thought Content: normal and suicidality Judgment: judgment good Course Course Narrative: Patient was worked up with laboratory studies and right upper quadrant ultrasound. He was treated with Imitrex for a migraine headache which he stated was coming on after he arrived. Right upper quadrant ultrasound was unremarkable, but patient was found to have an elevated lipase. I discussed with him the treatment for pancreatitis, and patient stated that he felt he could stick to a clear liquid diet at home for the next couple of days. Patient was advised that it does appear that he has had an elevated lipase before, and in fact, it has been twice as high previously as it is today. Patient states he was unaware of this. We have discussed the usual indications for return. Patient has been treated symptomatically in the emergency department with Dilaudid, and is feeling better. Orders Ordered: Discontinued Medications Heparin Sodium (Porcine) 5,000 (unit/ Sodium Chloride 50 ml) 0 unit IV NOW ONE Stop: 10/09/18 15:50 Last Admin: 10/09/18 15:50 Dose: 50 irrig.soln Hydromorphone HCl (Dilaudid) 1 mg IV NOW ONE Stop: 10/09/18 12:44 Last Admin: 10/09/18 13:01 Dose: 1 mg Hydromorphone HCl (Dilaudid) 1 mg IV NOW ONE Stop: 10/09/18 15:30 Last Admin: 10/09/18 15:44 Dose: 1 mg Sodium Chloride (Normal Saline 0.9%) 1,000 mls @ 1,000 mls/hr IV BOLUS ONE Stop: 10/09/18 13:20 Last Infusion: 10/09/18 13:34 Dose: 0 mls/hr Admin: 10/09/18 12:55 Dose: 1,000 mls/hr Sumatriptan Succinate (Imitrex) 6 mg SUBCUT NOW ONE Stop: 10/09/18 11:02 Last Admin: 10/09/18 12:03 Dose: 6 mg Vital Signs - 8 hr 10/09/18 09:45 Temperature 99.0 F Pulse Rate 102 H Respiratory Rate 18 Blood Pressure 166/102 H Pulse Oximetry 99 MDM - Abdominal Pain Medical Records Attestation: I reviewed the patient's medical records. Lab Data Attestation: I reviewed the patient's lab results. Result diagrams: 10/09/18 11:45 10/09/18 11:45 Lab Results 10/09/18 10/09/18 10/09/18 Range/Units 11:45 11:45 11:45 WBC 7.5 (4.5-11.0) X10^3/uL RBC 5.26 (4.5-5.9) X10^6/uL Hgb 16.6 (13.5-17.5) g/dL Hct 49.0 (41-53) % MCV 93.2 (80-100) fL MCH 31.6 (26-34) PG MCHC 33.9 (30-36) % RDW 14.6 (11.6-14.8) % Plt Count 166 (150-400) X10^3/uL Neut % (Auto) 69.3 (50-75) % Lymph % (Auto) 19.8 L (25-40) % Craig % (Auto) 10.2 (3-14) % Eos % (Auto) 0.3 L (2-4) % Baso % (Auto) 0.4 (0-2) % Neut # (Auto) 5200 (1727-1595) /uL Lymph # (Auto) 1500 (7354-8850) /uL Craig # (Auto) 800 (0-900) /uL Eos # (Auto) 0 (0-450) /uL Baso # (Auto) 0 (0-100) /uL PT 13.6 H (10.1-12.7) SECONDS INR 1.2 (0.9-1.3) APTT 58 H (26.4-36.2) SECONDS Sodium 142 (137-145) mmol/L Potassium 4.5 (3.4-5.1) mmol/L Chloride 105 (98-107) mmol/L Carbon Dioxide 29 (22-32) mmol/L BUN 16 (9-20) mg/dL Creatinine 1.00 (0.66-1.25) mg/dL Estimated GFR > 60.0 (>60) mL/min BUN/Creatinine Ratio 16.0 (6-22) Glucose 82 (80-110) mg/dL Calcium 9.9 (8.4-10.2) mg/dL Total Bilirubin 0.6 (0.2-1.3) mg/dL AST 35 (17-59) IU/L ALT 60 (21-72) IU/L Alkaline Phosphatase 103 (38-126) U/L Total Protein 6.9 (6.3-8.2) g/dL Albumin 4.3 (3.5-5.0) g/dL Globulin 2.6 (1.7-4.1) g/dL Albumin/Globulin Ratio 1.7 (1.0-2.8) Lipase 811 H (23-300) U/L Point of care testing: Urine Dip Bedside Urine Glucose Negative Bedside Urine Bilirubin - Negative Bedside Urine Ketone - Negative Urine Specific Turrell 1.015 Bedside Urine Occult Blood - Negative Bedside Urine pH 6.0 Bedside Urine Protein - Negative Bedside Urine Urobilinogen - Negative Bedside Urine Nitrite - Negative Bedside Urine Leukocytes - Negative Esterase Imaging Data US - abdomen: Radiologist's impression: [address] [address] Ultrasound Report Signed Patient: Mario Hemphill [facility]#: [id number] : 4Acct:[id number] Age/Sex: 63 / MDate of Service: 10/09/18 Loc: ED Accession Number: [id number] Procedure: US abdomen limited Ordering Provider: Leticia Nava MD PROCEDURE: US ABDOMEN LIMITED INDICATIONS: ABDOMEN PAIN RIGHT UPPER QUADRANT TECHNIQUE: Real-time focused scanning was performed of the abdomen, with image documentation. COMPARISON: [facility], CT, CT ANGIO ABDOMEN/FEMORAL, 03/14/2018, 7:18. FINDINGS: The liver is normal in size and demonstrates increased echogenicity when compared to the right kidney. No focal liver lesions are identified. The gallbladder is within normal limits without cholelithiasis or gallbladder wall inflammation. No intrahepatic or extrahepatic biliary dilatation is evident. The common bile duct measures approximately 6-7 mm in diameter. The pancreas was obscured by overlying bowel gas. Included images of the right kidney are within normal limits without severe hydronephrosis. IMPRESSION: 1. No cholelithiasis or evidence of acute cholecystitis. 2. Probable hepatic steatosis. Please correlate clinically to exclude other chronic liver disease. Dictated by: Von Marcano M.D. on 10/09/2018 at 13:06 Approved by: Von Marcano M.D. on 10/09/2018 at 13:08 Discharge Plan Departure Patient Disposition: Home Clinical Impression: Abdominal pain, chronic, right upper quadrant Acute pancreatitis Qualifiers: Pancreatitis type: unspecified pancreatitis type Acute pancreatitis complication: uninfected necrosis Qualified Code(s): K85.91 - Acute pancreatitis with uninfected necrosis, unspecified Discharge Date/Time: 10/09/18 15:59 Interventions: ED Discharge Assessment Last Done: 10/09/18 15:57 Instructions: DI for Pancreatitis Activity Restrictions/Additional Instructions: Your labs show a moderate elevation of the enzymes that are put out by your pancreas. It appears that this has been the case before, although the enzyme levels are not nearly as height today as they have been in the past. Even so, this does indicate some inflammation of your pancreas, and as such, you will need to take only clear liquids, mainly water, for the next 24-48 hours. You may take the pain and nausea medicine, as needed, but should otherwise avoid food for the next 24-48 hours. Some or all of your pain may be due to pancreatitis, which can be a painful condition. However, as your pancreatitis resolves, the pain should also resolved. If you do not find that your pain is doing better after the next 48 hours, you should see your doctor to be sure that your pancreatic enzymes are coming down. If they have come down and you still have the pain, there is most likely another cause for your pain in your musculoskeletal system. The rest of your organs and labs looked good on ultrasound and blood work. Urine nausea medicine prescription has been sent to the [place] [facility] in [place]. Prescriptions: New ondansetron 4 mg tablet,disintegrating 4 mg PO Q6H PRN (Reason: nausea and vomiting) Qty: 20 RF: 0 hydrocodone-acetaminophen 5-325 mg tablet 1 tab PO Q4H PRN (Reason: pain) Qty: 14 RF: 0 No Action sumatriptan succinate 100 mg tablet 200 mg PO Q2-4H PRN (Reason: Migraine Headache) Qty: 12 RF: 0 sumatriptan succinate 6 mg/0.5 mL pen injector 1 dose SUBCUT PRN PRN (Reason: Migraine Headache) Qty: 10 RF: 0 Breo Ellipta 200 MCG/25 MCG blister with device 1 puff INH DAILY Qty: 0 RF: 0 Combivent Respimat 4 GM mist See Rx Instructions .ROUTE .COMPLEX MDD 6 Qty: 0 RF: 0 albuterol sulfate 1.25 MG/3 ML solution for nebulization 1.25 mg INH Q4HP PRN (Reason: Shortness Of Breath) Qty: 0 RF: 0 cyclobenzaprine 10 mg tablet 10 mg PO TID PRN (Reason: muscle spasm) Qty: 30 RF: 0 bupropion HCl 300 mg tablet extended release 24 hr 300 mg PO QNOON Qty: 7 RF: 0 eszopiclone [Lunesta] 2 mg tablet 2 mg PO BEDTIME Qty: 14 RF: 0 liothyronine [Cytomel] 25 mcg tablet 12.5 mcg PO DAILY Qty: 14 RF: 0 metoprolol tartrate 25 mg tablet 25 mg PO BID Qty: 28 RF: 0 montelukast [Singulair] 10 mg tablet 10 mg PO BEDTIME Qty: 14 RF: 0 duloxetine [Cymbalta] 60 mg capsule,delayed release(DR/EC) 60 mg PO QNOON Qty: 30 RF: 2 atorvastatin [Lipitor] 10 mg tablet 10 mg PO BEDTIME Qty: 30 RF: 3 levothyroxine 100 mcg tablet 100 mcg PO QAM Qty: 90 RF: 1 lamotrigine 200 mg tablet 200 mg PO BEDTIME Qty: 30 RF: 2 calcium citrate 250 mg calcium tablet 500 mg PO BID RF: 0 albuterol sulfate [Ventolin HFA] 90 MCG/PUFF HFA aerosol inhaler 1 puff INH SEE INSTRUCTIONS RF: 0 sumatriptan 20 mg/actuation spray,non-aerosol 20 mg NASAL Q2H PRN (Reason: Migraine Headache) RF: 0 clonazepam 2 mg tablet 2 mg PO TID RF: 0 desonide 0.05 % cream 1 applic Topical PRN PRN (Reason: Inflammation) RF: 0 ketoconazole 2 % shampoo 1 applic Topical DAILY PRN (Reason: Skin Irritation) RF: 0 clobetasol 0.05 % ointment 1 applic Topical SUSA RF: 0 tamsulosin [Flomax] 0.4 mg capsule 0.4 mg PO QNOON RF: 0 multivitamin Tablet 1 tab PO DAILY RF: 0 Vitamin B-12 1 tab PO DAILY RF: 0 Eliquis 5 mg tablet 5 mg PO BID RF: 0 Ajovy 225 mg/1.5 mL syringe 225 mg SUBCUT QMONTH Qty: 1.5 RF: 11 nortriptyline 10 mg capsule 10 mg PO BEDTIME Qty: 30 RF: 0 Referrals: Eleazar Armstrong MD [Primary Care Provider] -
--- NOTE | 2018-10-09 11:12 | ED_ITS ---
HPI - Abdominal Pain General Chief Complaint: Abdominal Pain Stated Complaint: abdominal pain Time Seen by Provider: 10/09/18 10:10 Source: patient Mode of arrival: ambulatory Limitations: no limitations History of Present Illness HPI narrative: Patient comes to the emergency department complaining of abdominal pain in his right upper quadrant. He states he has had this on and off for the last 6 months, but thought it would just go away, so he really did not bring it up with his doctor. He states he has had a couple of chest x-rays to see if the pain is coming from his lungs or his ribs, but this has been ne gative. Patient states ?I need an MRI or a CT?. Patient is not known to have any gallbladder disorders. He is not known to have liver disease. He states that he has not had any cough, chest pain, or shortness of breath. No fevers. He states it does hurt more in the right upper quadrant/rib area when he takes a deep breath, twists, or tries to sit up. He denies any injury. No dysuria. He states he has a history of kidney stones but does not feel like this. No diarrhea. No nausea vomiting. No other complaints this time. Related Data Home Medications Medication Instructions Recorded Confirmed Breo Ellipta 1 puff INH DAILY #0 12/03/16 10/09/18 Combivent Respimat See Rx Instructions .ROUTE 04/15/17 10/09/18 .COMPLEX #0 MDD 6 albuterol sulfate 1.25 mg INH Q4HP PRN #0 05/24/17 10/09/18 albuterol sulfate [Ventolin HFA] 1 puff INH SEE INSTRUCTIONS 08/22/17 10/09/18 Vitamin B-12 1 tab PO DAILY 02/21/18 10/09/18 clobetasol 1 applic TOPICAL SUSA 02/21/18 10/09/18 desonide 1 applic TOPICAL PRN PRN 02/21/18 10/09/18 ketoconazole 1 applic TOPICAL DAILY PRN 02/21/18 10/09/18 multivitamin 1 tab PO DAILY 02/21/18 10/09/18 tamsulosin [Flomax] 0.4 mg PO QNOON 02/21/18 10/09/18 calcium citrate 250 mg tablet 500 mg PO BID tab 03/28/18 10/09/18 apixaban 5 mg tablet 5 mg PO BID 05/30/18 10/09/18 sumatriptan 100 mg tablet 200 mg PO Q2-4H PRN #12 tab 08/11/18 10/09/18 sumatriptan 6 mg/0.5 mL 1 dose SUBCUT PRN PRN #10 ml 08/11/18 10/09/18 subcutaneous pen injector sumatriptan 20 mg NASAL Q2H PRN 08/29/18 10/09/18 clonazepam 2 mg PO TID 10/09/18 10/09/18 Previous Rx's Medication Instructions Recorded cyclobenzaprine 10 mg tablet 10 mg PO TID PRN #30 tab 01/09/18 bupropion HCl XL 300 mg 24 hr 300 mg PO QNOON #7 tab 05/17/18 tablet, extended release eszopiclone 2 mg tablet 2 mg PO BEDTIME #14 tab 05/18/18 liothyronine 25 mcg tablet 12.5 mcg PO DAILY #14 tab 05/18/18 metoprolol tartrate 25 mg tablet 25 mg PO BID #28 tab 05/18/18 montelukast 10 mg tablet 10 mg PO BEDTIME #14 tab 05/18/18 fremanezumab-vfrm 225 mg/1.5 mL 225 mg SUBCUT QMONTH #1.5 ml 05/30/18 subcutaneous syringe nortriptyline 10 mg capsule 10 mg PO BEDTIME #30 cap 05/31/18 duloxetine 60 mg capsule,delayed 60 mg PO QNOON #30 cap 06/30/18 release atorvastatin 10 mg tablet 10 mg PO BEDTIME #30 tab 07/24/18 levothyroxine 100 mcg tablet 100 mcg PO QAM #90 tab 08/01/18 lamotrigine 200 mg tablet 200 mg PO BEDTIME #30 tab 08/24/18 hydrocodone-acetaminophen 1 tab PO Q4H PRN #14 tab 10/09/18 ondansetron 4 mg PO Q6H PRN #20 tab 10/09/18 Allergies Allergy/AdvReac Type Severity Reaction Status Date / Time doxycycline [DOXYCYCLINE] Allergy Mild ITCHING Verified 10/09/18 09:53 ketorolac [KETOROLAC] Allergy Unknown Verified 10/09/18 09:53 NSAIDS (Non-Steroidal AdvReac Unknown TO AVOID Verified 10/09/18 09:53 Anti-Inflamma R/T [NSAIDS (NON-STEROIDAL GASTRIC ANTI-INFLAMMA] BYPASS Review of Systems Constitutional Denies chills, Denies fever(s), Denies lethargy and Denies weakness Eyes Denies change in vision, Denies eye discharge, Denies irritation and Denies loss of vision ENT Ears, Nose, Mouth, and Throat: Denies change in voice, Denies neck pain and Denies sore throat Cardiovascular Denies chest pain, Denies irregular heart rhythm, Denies lightheadedness, Denies palpitations, Denies dyspnea, Denies dyspnea on exertion and Denies orthopnea Respiratory Denies cough, Denies dyspnea, Denies dyspnea on exertion and Denies wheezing Gastrointestinal Gastrointestinal: Reports abdominal pain, Denies change in bowel habits, Denies diarrhea, Denies nausea and Denies vomiting Genitourinary Denies hematuria, Denies flank pain, Denies urinary incontinence and Denies urinary urgency Musculoskeletal Denies neck pain Integumentary/Breasts Denies pruritus, Denies erythema, Denies rash and Denies wounds Neurologic Denies confusion, Denies loss of vision and Denies weakness Psychiatric Denies anxiety, Denies confusion, Denies depression, Denies homicidal ideation and Denies suicidal ideation Endocrine Denies palpitations Hematologic/Lymphatic Denies easy bruising Allergic/Immunologic Denies wheezing [facility] Medical History (Updated 10/09/18 @ 15:36 by Leticia Nava MD) Insomnia (Chronic) Mixed hyperlipidemia (Chronic) Hypothyroidism (Chronic) Major depressive disorder, recurrent episode, severe (Chronic) Anxiety (Chronic) Paroxysmal atrial fibrillation (Chronic) Chronic pain syndrome (Chronic 11/08/16) Post traumatic stress disorder (PTSD) (Chronic) Sleep apnea (Ruled-out) Cognitive disorder (Chronic 04/24/14) Obesity with body mass index (BMI) of 30.0 to 39.9 (Chronic 12/06/14) Other iron deficiency anemia (Chronic 02/03/15) Chronic left shoulder pain (Chronic 01/20/16) Chronic obstructive pulmonary disease (Chronic 08/05/17) H/O renal calculi (Inactive) H/O migraine (Inactive) S/P ECT (electroconvulsive therapy) (Acute) Sarcoidosis (Chronic) Psoriasis (Chronic) Iron deficiency (Chronic) 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) Vitamin B12 deficiency (Chronic 11/11/11) History of stroke (Inactive) Hypersomnia (Chronic) Narcotic dependence (Resolved 09/01/16) Patent foramen ovale (Resolved) Pneumonia (Resolved) Surgical History (Updated 10/09/18 @ 11:34 by Leticia Nava MD) History of gastric bypass (Inactive ~2003) History of total shoulder replacement (Inactive ~12/2015) S/P lumbar laminectomy (Inactive ~10/2017) History of Cris-en-Y gastric bypass (Inactive ~2003) Family History Father No problems noted. Mother No problems noted. 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: [employer] travel history: over 6 months ago and other Smoking Status: Former smoker Tobacco: How many years used: 10 Smokeless tobacco user: other quit status: quit date established second hand exposure: Yes (Childhood) alcohol intake: current substance use type: does not use Exam Initial Vital Signs Initial Vital Signs: Vital Signs Temperature 99.0 F 10/09/18 09:45 Pulse Rate 102 H 10/09/18 09:45 Respiratory Rate 18 10/09/18 09:45 Blood Pressure 166/102 H 10/09/18 09:45 Pulse Oximetry 99 10/09/18 09:45 Const General: cooperative and well developed Nutritional Appearance: well nourished Orientation: alert, awake, oriented x3 and not confused [facility] Head: normocephalic and atraumatic Ears: external ears normal and TM's normal bilaterally Nose: external nose normal and No nasal discharge Face and sinus: sinuses nontender, face symmetric, no sinus tenderness and No dry mucous membranes Mouth: oral mucosae normal and moist mucous membranes Teeth and gingiva: dentition normal Throat: tonsils normal and uvula midline Eyes General: appearance normal, both eyes and all related structures Eyelids: eyelids normal Conjunctivae: conjunctivae normal Sclera: sclerae normal Pupils: PERRL EOM: EOM intact bilaterally Neck Neck: normal visual inspection, trachea midline, No lymphadenopathy, No midline deformity and No JVD Lymphatic: No lymphedema Chest Chest: normal inspection of the chest Resp Effort & Inspection: normal respiratory effort, able to speak in complete sentences, no respiratory distress and no use of accessory muscles Auscultation: clear to auscultation bilaterally, no rales, no rhonchi and no wheezes Cardio Rate: regular rate Rhythm: regular rhythm Heart Sounds: no click, no gallops, no murmurs and no rubs Pulses: normal peripheral pulses GI Inspection: non-distended Palpation: soft, no hepatosplenomegaly, No guarding, No pulsatile mass and tender (Mild, right upper quadrant.) Auscultation: normal bowel sounds Back/Spine/Pelvis Back: No CVA tenderness Cervical Spine: cervical ROM normal and No pain with cervical ROM Thoracic/Lumbar Spine: thoracic and lumbar spine normal to inspection Skin General: no rashes or lesions noted, No jaundice and No petechiae Neuro General: alert, oriented x3, gait normal and no focal motor deficits Speech: speech normal Extrem General: full ROM, no clubbing, cyanosis or edema, no pedal edema and no calf tenderness Psych Appearance: well kempt Mental Status: mental status grossly normal Attitude: cooperative Thought Content: normal and suicidality Judgment: judgment good Course Course Narrative: Patient was worked up with laboratory studies and right upper quadrant ultrasound. He was treated with Imitrex for a migraine headache which he stated was coming on after he arrived. Right upper quadrant ultrasound was unremarkable, but patient was found to have an elevated lipase. I discussed with him the treatment for pancreatitis, and patient stated that he felt he cou ld stick to a clear liquid diet at home for the next couple of days. Patient was advised that it does appear that he has had an elevated lipase before, and in fact, it has been twice as high previously as it is today. Patient states he was unaware of this. We have discussed the usual indications for return. Patient has been treated symptomatically in the emergency department with Dilaudid, and is feeling better. Orders Ordered: Discontinued Medications Heparin Sodium (Porcine) 5,000 (unit/ Sodium Chloride 50 ml) 0 unit IV NOW ONE Stop: 10/09/18 15:50 Last Admin: 10/09/18 15:50 Dose: 50 irrig.soln Hydromorphone HCl (Dilaudid) 1 mg IV NOW ONE Stop: 10/09/18 12:44 Last Admin: 10/09/18 13:01 Dose: 1 mg Hydromorphone HCl (Dilaudid) 1 mg IV NOW ONE Stop: 10/09/18 15:30 Last Admin: 10/09/18 15:44 Dose: 1 mg Sodium Chloride (Normal Saline 0.9%) 1,000 mls @ 1,000 mls/hr IV BOLUS ONE Stop: 10/09/18 13:20 Last Infusion: 10/09/18 13:34 Dose: 0 mls/hr Admin: 10/09/18 12:55 Dose: 1,000 mls/hr Sumatriptan Succinate (Imitrex) 6 mg SUBCUT NOW ONE Stop: 10/09/18 11:02 Last Admin: 10/09/18 12:03 Dose: 6 mg Vital Signs - 8 hr 10/09/18 09:45 Temperature 99.0 F Pulse Rate 102 H Respiratory Rate 18 Blood Pressure 166/102 H Pulse Oximetry 99 MDM - Abdominal Pain Medical Records Attestation: I reviewed the patient's medical records. Lab Data Attestation: I reviewed the patient's lab results. Result diagrams: 10/09/18 11:45 10/09/18 11:45 Lab Results 10/09/18 10/09/18 10/09/18 Range/Units 11:45 11:45 11:45 WBC 7.5 (4.5-11.0) X10^3/uL RBC 5.26 (4.5-5.9) X10^6/uL Hgb 16.6 (13.5-17.5) g/dL Hct 49.0 (41-53) % MCV 93.2 (80-100) fL MCH 31.6 (26-34) PG MCHC 33.9 (30-36) % RDW 14.6 (11.6-14.8) % Plt Count 166 (150-400) X10^3/uL Neut % (Auto) 69.3 (50-75) % Lymph % (Auto) 19.8 L (25-40) % [place] % (Auto) 10.2 (3-14) % Eos % (Auto) 0.3 L (2-4) % Baso % (Auto) 0.4 (0-2) % Neut # (Auto) 5200 (2329-6969) /uL Lymph # (Auto) 1500 (9869-5005) /uL [place] # (Auto) 800 (0-900) /uL Eos # (Auto) 0 (0-450) /uL Baso # (Auto) 0 (0-100) /uL PT 13.6 H (10.1-12.7) SECONDS INR 1.2 (0.9-1.3) APTT 58 H (26.4-36.2) SECONDS Sodium 142 (137-145) mmol/L Potassium 4.5 (3.4-5.1) mmol/L Chloride 105 (98-107) mmol/L Carbon Dioxide 29 (22-32) mmol/L BUN 16 (9-20) mg/dL Creatinine 1.00 (0.66-1.25) mg/dL Estimated GFR > 60.0 (>60) mL/min BUN/Creatinine Ratio 16.0 (6-22) Glucose 82 (80-110) mg/dL Calcium 9.9 (8.4-10.2) mg/dL Total Bilirubin 0.6 (0.2-1.3) mg/dL AST 35 (17-59) IU/L ALT 60 (21-72) IU/L Alkaline Phosphatase 103 (38-126) U/L Total Protein 6.9 (6.3-8.2) g/dL Albumin 4.3 (3.5-5.0) g/dL Globulin 2.6 (1.7-4.1) g/dL Albumin/Globulin Ratio 1.7 (1.0-2.8) Lipase 811 H (23-300) U/L Point of care testing: Urine Dip Bedside Urine Glucose Negative Bedside Urine Bilirubin - Negative Bedside Urine Ketone - Negative Urine Specific [place] 1.015 Bedside Urine Occult Blood - Negative Bedside Urine pH 6.0 Bedside Urine Protein - Negative Bedside Urine Urobilinogen - Negative Bedside Urine Nitrite - Negative Bedside Urine Leukocytes - Negative Esterase Imaging Data US - abdomen: Radiologist's impression: [address] [address] Ultrasound Report Signed Patient: Mario Hemphill [facility]#: [id number] : 4Acct:[id number] Age/Sex: 63 / MDate of Service: 10/09/18 Loc: ED Accession Number: [id number] Procedure: US abdomen limited Ordering Provider: Leticia Nava MD PROCEDURE: US ABDOMEN LIMITED INDICATIONS: ABDOMEN PAIN RIGHT UPPER QUADRANT TECHNIQUE: Real-time focused scanning was performed of the abdomen, with image documentation. COMPARISON: [facility], CT, CT ANGIO ABDOMEN/FEMORAL, 03/14/2018, 7:18. FINDINGS: The liver is normal in size and demonstrates increased echogenicity when compared to the right kidney. No focal liver lesions are identified. The gallbladder is within normal limits without cholelithiasis or gallbladder wall inflammation. No intrahepatic or extrahepatic biliary dilatation is evident. The common bile duct measures approximately 6-7 mm in diameter. The pancreas was obscured by overlying bowel gas. Included images of the right kidney are within normal limits without severe hydronephrosis. IMPRESSION: 1. No cholelithiasis or evidence of acute cholecystitis. 2. Probable hepatic steatosis. Please correlate clinically to exclude other chronic liver disease. Dictated by: Von Marcano M.D. on 10/09/2018 at 13:06 Approved by: Von Marcano M.D. on 10/09/2018 at 13:08 Discharge Plan Departure Patient Disposition: Home Clinical Impression: Abdominal pain, chronic, right upper quadrant Acute pancreatitis Qualifiers: Pancreatitis type: unspecified pancreatitis type Acute pancreatitis complication: uninfected necrosis Qualified Code(s): K85.91 - Acute pancreatitis with uninfected necrosis, unspecified Discharge Date/Time: 10/09/18 15:59 Interventions: ED Discharge Assessment Last Done: 10/09/18 15:57 Instructions: DI for Pancreatitis Activity Restrictions/Additional Instructions: Your labs show a moderate elevation of the enzymes that are put out by your pancreas. It appears that this has been the case before, although the enzyme levels are not nearly as height today as they have been in the past. Even so, this does indicate some inflammation of your pancreas, and as such, you will need to take only clear liquids, mainly water, for the next 24-48 hours. You ma y take the pain and nausea medicine, as needed, but should otherwise avoid food for the next 24-48 hours. Some or all of your pain may be due to pancreatitis, which can be a painful condition. However, as your pancreatitis resolves, the pain should also resolved. If you do not find that your pain is doing better after the next 48 hours, you should see your doctor to be sure that your pancreatic enzymes are coming down. If they have come down and you still have the pain, there is most likely another cause for your pain in your musculoskeletal system. The rest of your organs and labs looked good on ultrasound and blood work. Urine nausea medicine prescription has been sent to the [facility] in [place]. Prescriptions: New ondansetron 4 mg tablet,disintegrating 4 mg PO Q6H PRN (Reason: nausea and vomiting) Qty: 20 RF: 0 hydrocodone-acetaminophen 5-325 mg tablet 1 tab PO Q4H PRN (Reason: pain) Qty: 14 RF: 0 No Action sumatriptan succinate 100 mg tablet 200 mg PO Q2-4H PRN (Reason: Migraine Headache) Qty: 12 RF: 0 sumatriptan succinate 6 mg/0.5 mL pen injector 1 dose SUBCUT PRN PRN (Reason: Migraine Headache) Qty: 10 RF: 0 Breo Ellipta 200 MCG/25 MCG blister with device 1 puff INH DAILY Qty: 0 RF: 0 Combivent Respimat 4 GM mist See Rx Instructions .ROUTE .COMPLEX MDD 6 Qty: 0 RF: 0 albuterol sulfate 1.25 MG/3 ML solution for nebulization 1.25 mg INH Q4HP PRN (Reason: Shortness Of Breath) Qty: 0 RF: 0 cyclobenzaprine 10 mg tablet 10 mg PO TID PRN (Reason: muscle spasm) Qty: 30 RF: 0 bupropion HCl 300 mg tablet extended release 24 hr 300 mg PO QNOON Qty: 7 RF: 0 eszopiclone [Lunesta] 2 mg tablet 2 mg PO BEDTIME Qty: 14 RF: 0 liothyronine [Cytomel] 25 mcg tablet 12.5 mcg PO DAILY Qty: 14 RF: 0 metoprolol tartrate 25 mg tablet 25 mg PO BID Qty: 28 RF: 0 montelukast [Singulair] 10 mg tablet 10 mg PO BEDTIME Qty: 14 RF: 0 duloxetine [Cymbalta] 60 mg capsule,delayed release(DR/EC) 60 mg PO QNOON Qty: 30 RF: 2 atorvastatin [Lipitor] 10 mg tablet 10 mg PO BEDTIME Qty: 30 RF: 3 levothyroxine 100 mcg tablet 100 mcg PO QAM Qty: 90 RF: 1 lamotrigine 200 mg tablet 200 mg PO BEDTIME Qty: 30 RF: 2 calcium citrate 250 mg calcium tablet 500 mg PO BID RF: 0 albuterol sulfate [Ventolin HFA] 90 MCG/PUFF HFA aerosol inhaler 1 puff INH SEE INSTRUCTIONS RF: 0 sumatriptan 20 mg/actuation spray,non-aerosol 20 mg NASAL Q2H PRN (Reason: Migraine Headache) RF: 0 clonazepam 2 mg tablet 2 mg PO TID RF: 0 desonide 0.05 % cream 1 applic Topical PRN PRN (Reason: Inflammation) RF: 0 ketoconazole 2 % shampoo 1 applic Topical DAILY PRN (Reason: Skin Irritation) RF: 0 clobetasol 0.05 % ointment 1 applic Topical SUSA RF: 0 tamsulosin [Flomax] 0.4 mg capsule 0.4 mg PO QNOON RF: 0 multivitamin Tablet 1 tab PO DAILY RF: 0 Vitamin B-12 1 tab PO DAILY RF: 0 Eliquis 5 mg tablet 5 mg PO BID RF: 0 Ajovy 225 mg/1.5 mL syringe 225 mg SUBCUT QMONTH Qty: 1.5 RF: 11 nortriptyline 10 mg capsule 10 mg PO BEDTIME Qty: 30 RF: 0 Referrals: Eleazar Armstrong MD [Primary Care Provider] -
[2018-10-09 11:54] LABS: Add Manual Diff / Slide Review NO; Basophils Absolute Auto 0 /uL (0-100); Basophils Percent Auto 0.4 % (0-2); Eosinophils Absolute Auto 0 /uL (0-450); Eosinophils Percent Auto 0.3 % (2-4); Hemoglobin 16.6 g/dL (13.5-17.5); Lymphocytes Absolute Auto 1500 /uL (1100-4500); Lymphocytes Percent Auto 19.8 % (25-40); Mean Corpuscular HGB Conc 33.9 % (30-36); Mean Corpuscular Hemoglobin 31.6 PG (26-34); Mean Corpuscular Volume 93.2 fL (80-100); Monocytes Absolute Auto 800 /uL (0-900); Monocytes Percent Auto 10.2 % (3-14); Neutrophils Absolute Auto 5200 /uL (1500-7000); Neutrophils Percent Auto 69.3 % (50-75); Platelet Count 166 X10^3/uL (150-400); Red Blood Cell Count 5.26 X10^6/uL (4.5-5.9); Red Cell Distribution Width 14.6 % (11.6-14.8); White Blood Cell Count 7.5 X10^3/uL (4.5-11.0)
[2018-10-09 12:01] LABS: INR 1.2 (0.9-1.3); Prothrombin Time 13.6 SECONDS (10.1-12.7)
[2018-10-09] MEDS: SUMAtriptan 6 MG/0.5 ML VIAL SUBCUT (12:03)
[2018-10-09 12:04] LABS: PTT Partial Thromboplastin Tim 58 SECONDS (26.4-36.2)
[2018-10-09 12:06] LABS: Alanine Aminotransferase 60 IU/L (21-72); Albumin 4.3 g/dL (3.5-5.0); Albumin Globulin Ratio 1.7 (1.0-2.8); Alkaline Phosphatase 103 U/L (38-126); Aspartate Aminotransferase 35 IU/L (17-59); Bilirubin Total 0.6 mg/dL (0.2-1.3); Blood Urea Nitrogen 16 mg/dL (9-20); Calcium 9.9 mg/dL (8.4-10.2); Carbon Dioxide 29 mmol/L (22-32); Chloride 105 mmol/L (98-107); Estimated Glomerular Filt Rate > 60.0 mL/min (>60); Globulin 2.6 g/dL (1.7-4.1); Glucose 82 mg/dL (80-110); HEMOLYSIS < 15 (0-50); Lipase 811 U/L (23-300); Potassium 4.5 mmol/L (3.4-5.1); Sodium 142 mmol/L (137-145); Total Protein 6.9 g/dL (6.3-8.2)
--- NOTE | 2018-10-09 12:21 | DI.US.S_ITS ---
PROCEDURE: US ABDOMEN LIMITED INDICATIONS: ABDOMEN PAIN RIGHT UPPER QUADRANT TECHNIQUE: Real-time focused scanning was performed of the abdomen, with image documentation. COMPARISON: [facility], CT, CT ANGIO ABDOMEN/FEMORAL, 03/14/2018, 7:18. FINDINGS: The liver is normal in size and demonstrates increased echogenicity when compared to the right kidney. No focal liver lesions are identified. The gallbladder is within normal limits without cholelithiasis or gallbladder wall inflammation. No intrahepatic or extrahepatic biliary dilatation is evident. The common bile duct measures approximately 6-7 mm in diameter. The pancreas was obscured by overlying bowel gas. Included images of the right kidney are within normal limits without severe hydronephrosis. IMPRESSION: 1. No cholelithiasis or evidence of acute cholecystitis. 2. Probable hepatic steatosis. Please correlate clinically to exclude other chronic liver disease. Dictated by: Von Marcano M.D. on 10/09/2018 at 13:06 Approved by: Von Marcano M.D. on 10/09/2018 at 13:08
[2018-10-09] MEDS: SODIUM CHLORIDE 0.9% 1,000 ML 1000 ML IV (12:55)
[2018-10-09] MEDS: HYDROMORPHONE 1 MG INJ IV ×2 (13:01→15:44)
[2018-10-09] MEDS: HEPARIN 5,000 UNIT, SODIUM CHLORIDE 0.9% 50 ML IV (15:50)
== END 2018-10-09 15:59 | disposition home or self-care (01) ==
PROVIDERS: Emergency Provider Emergency Medicine; PCP Internal Medicine
DX: K85.90 Acute pancreatitis without necrosis or infection, unspecified (principal)
CPT/HCPCS: 76705; 80053; 81003; 83690; 85025; 85610; 85730; 93005; 96361; 96372; 96374; 96375; 96376; 99284; J1170; J1644; J3030

== ENCOUNTER → 2018-10-10 08:05 | Outpatient (CLI) | payer MEDICARE, SELFPAY ==
[2018-10-10 09:45] LABS: Alanine Aminotransferase 52 IU/L (21-72); Albumin 4.4 g/dL (3.5-5.0); Albumin Globulin Ratio 1.6 (1.0-2.8); Alkaline Phosphatase 103 U/L (38-126); Aspartate Aminotransferase 31 IU/L (17-59); Blood Urea Nitrogen 16 mg/dL (9-20); Carbon Dioxide 32 mmol/L (22-32); Chloride 100 mmol/L (98-107); Cholesterol 133 mg/dL (140-199); Estimated Glomerular Filt Rate > 60.0 mL/min (>60); Globulin 2.7 g/dL (1.7-4.1); Glucose 80 mg/dL (80-110); HDL Cholesterol 48 mg/dL (40-60); HEMOLYSIS < 15 (0-50); LDL Cholesterol Calculated 60 mg/dL (<100); Potassium 4.8 mmol/L (3.4-5.1); Sodium 140 mmol/L (137-145); Total Protein 7.1 g/dL (6.3-8.2); Triglycerides 124 mg/dL (35-150)
[2018-10-10 10:07] LABS: Thyroid Stimulating Hormone 0.03 uIU/mL (0.47-4.68)
== END ==
PROVIDERS: PCP Internal Medicine; Visit Provider Internal Medicine
DX: E03.9 Hypothyroidism, unspecified (principal); E78.5 Hyperlipidemia, unspecified
CPT/HCPCS: 36415; 80053; 80061; 84439; 84443

== ENCOUNTER 2018-10-11 11:23 | Inpatient (IN) | payer MEDICARE, SELFPAY ==
[2018-10-11] VITALS (14 sets, daily range): BP systolic 121–161; BP diastolic 68–96; PULSE 72–86; RESP 8–23; TEMP 36.3–36.9; O2SAT 88–99; BMI 31.0
--- NOTE | 2018-10-11 11:45 | ED.ABDPAIN ---
HPI - Abdominal Pain <Nataly Dyson PA-C - Last Filed: 10/11/18 20:27> General Chief Complaint: Abdominal Pain Stated Complaint: abdominal pain Time Seen by Provider: 10/11/18 11:45 Source: patient Mode of arrival: ambulatory Limitations: no limitations History of Present Illness HPI narrative: This 63-year-old gentleman returns to ED secondary to persistent at right upper quadrant pain and nausea. He was seen here 2 days ago for same symptoms, states he has been NPO except for water and thought he could manage pain at home but at this point does not feel like he can. He states that Zofran prescription was not available so has taken Compazine, which he already had, as needed, along with [place]. He states he had to take for [place] at a time to get any relief and is out (he has history of addiction to prescribed opioids, has been off of them for some time but states he does have a high pain tolerance related to this). He states that he feels a little bit like his balance is off or slightly lightheaded at times which he thinks is due to not eating. Also feeling a little bit anxious. He states right upper quadrant can hurt more with deep breath, but denies dyspnea, chest pain, any pain or swelling in the extremities. He denies any urinary symptoms, bowel changes, new fever, or other new complaints on systems review Related Data Home Medications Medication Instructions Recorded Confirmed Breo Ellipta 1 puff INH DAILY #0 12/03/16 10/11/18 Combivent Respimat See Rx Instructions .ROUTE 04/15/17 10/11/18 .COMPLEX #0 MDD 6 albuterol sulfate 1.25 mg INH Q4HP PRN #0 05/24/17 10/11/18 albuterol sulfate [Ventolin HFA] 1 puff INH SEE INSTRUCTIONS 08/22/17 10/11/18 Vitamin B-12 1 tab PO DAILY 02/21/18 10/11/18 clobetasol 1 applic TOPICAL SUSA 02/21/18 10/11/18 desonide 1 applic TOPICAL PRN PRN 02/21/18 10/11/18 ketoconazole 1 applic TOPICAL DAILY PRN 02/21/18 10/11/18 multivitamin 1 tab PO DAILY 02/21/18 10/11/18 tamsulosin [Flomax] 0.4 mg PO QNOON 02/21/18 10/11/18 calcium citrate 250 mg tablet 500 mg PO BID tab 03/28/18 10/11/18 apixaban 5 mg tablet 5 mg PO BID 05/30/18 10/11/18 sumatriptan 100 mg tablet 200 mg PO Q2-4H PRN #12 tab 08/11/18 10/11/18 sumatriptan 6 mg/0.5 mL 1 dose SUBCUT PRN PRN #10 ml 08/11/18 10/11/18 subcutaneous pen injector sumatriptan 20 mg NASAL Q2H PRN 08/29/18 10/11/18 clonazepam 2 mg PO TID 10/09/18 10/11/18 Previous Rx's Medication Instructions Recorded cyclobenzaprine 10 mg tablet 10 mg PO TID PRN #30 tab 01/09/18 bupropion HCl XL 300 mg 24 hr 300 mg PO QNOON #7 tab 05/17/18 tablet, extended release eszopiclone 2 mg tablet 2 mg PO BEDTIME #14 tab 05/18/18 liothyronine 25 mcg tablet 12.5 mcg PO DAILY #14 tab 05/18/18 metoprolol tartrate 25 mg tablet 25 mg PO BID #28 tab 05/18/18 montelukast 10 mg tablet 10 mg PO BEDTIME #14 tab 05/18/18 fremanezumab-vfrm 225 mg/1.5 mL 225 mg SUBCUT QMONTH #1.5 ml 05/30/18 subcutaneous syringe nortriptyline 10 mg capsule 10 mg PO BEDTIME #30 cap 05/31/18 duloxetine 60 mg capsule,delayed 60 mg PO QNOON #30 cap 06/30/18 release atorvastatin 10 mg tablet 10 mg PO BEDTIME #30 tab 07/24/18 levothyroxine 100 mcg tablet 100 mcg PO QAM #90 tab 08/01/18 lamotrigine 200 mg tablet 200 mg PO BEDTIME #30 tab 08/24/18 hydrocodone-acetaminophen 1 tab PO Q4H PRN #14 tab 10/09/18 ondansetron 4 mg PO Q6H PRN #20 tab 10/09/18 Allergies Allergy/AdvReac Type Severity Reaction Status Date / Time doxycycline [DOXYCYCLINE] Allergy Mild ITCHING Verified 10/09/18 09:53 ketorolac [KETOROLAC] Allergy Unknown Verified 10/09/18 09:53 NSAIDS (Non-Steroidal AdvReac Unknown TO AVOID Verified 10/09/18 09:53 Anti-Inflamma R/T [NSAIDS (NON-STEROIDAL GASTRIC ANTI-INFLAMMA] BYPASS Review of Systems <Nataly Dyson PA-C - Last Filed: 10/11/18 20:27> Review of Systems ROS Unobtainable: All systems reviewed & are unremarkable except as noted in HPI and below PFSH <Nataly Dyson PA-C - Last Filed: 10/11/18 20:27> Medical History Insomnia (Chronic) Mixed hyperlipidemia (Chronic) Hypothyroidism (Chronic) Major depressive disorder, recurrent episode, severe (Chronic) Anxiety (Chronic) Paroxysmal atrial fibrillation (Chronic) Chronic pain syndrome (Chronic 11/08/16) Post traumatic stress disorder (PTSD) (Chronic) Sleep apnea (Ruled-out) Cognitive disorder (Chronic 04/24/14) Obesity with body mass index (BMI) of 30.0 to 39.9 (Chronic 12/06/14) Other iron deficiency anemia (Chronic 02/03/15) Chronic left shoulder pain (Chronic 01/20/16) Chronic obstructive pulmonary disease (Chronic 08/05/17) H/O renal calculi (Inactive) H/O migraine (Inactive) S/P ECT (electroconvulsive therapy) (Acute) Sarcoidosis (Chronic) Psoriasis (Chronic) Iron deficiency (Chronic) 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) Vitamin B12 deficiency (Chronic 02/19/11) History of stroke (Inactive) Hypersomnia (Chronic) Narcotic dependence (Resolved 09/01/16) Patent foramen ovale (Resolved) Pneumonia (Resolved) Surgical History History of gastric bypass (Inactive ~2003) History of total shoulder replacement (Inactive ~12/2015) S/P lumbar laminectomy (Inactive ~10/2017) History of Cris-en-Y gastric bypass (Inactive ~2003) Family History Father No problems noted. Mother No problems noted. 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 yeimy/baptism: [employer] travel history: over 6 months ago and other Smoking Status: Former smoker Tobacco: How many years used: 10 Smokeless tobacco user: other quit status: quit date established second hand exposure: Yes (Childhood) alcohol intake: current substance use type: does not use Family History Father No problems noted. Mother No problems noted. 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 HEENT: PERRL, EOMI, no scleral icterus NECK: Supple THROAT: Normal oropharynx LUNGS: Clear to auscultation bilaterally. HEART: Rate and rhythm regular, normal S1 and S2, no S3 or S4. ABDOMEN: Soft, nondistended, bowel sounds present x 4 quadrants, no masses palpable, +right upper quadrant tenderness and epigastric tenderness, +Alvarado sign. No tenderness elsewhere EXTREMITIES: No edema, no calf tender DERMATOLOGIC: No jaundice or exanthem NEUROLOGIC: Alert and oriented with normal speech and coordination Initial Vital Signs Initial Vital Signs: Vital Signs Temperature 97.4 F L 10/11/18 11:34 Pulse Rate 86 10/11/18 11:34 Respiratory Rate 12 07/03/19 11:34 Blood Pressure 161/96 H 10/11/18 11:34 Pulse Oximetry 99 10/11/18 11:34 <Karen Pradhan DO - Last Filed: 10/12/18 07:46> Initial Vital Signs Initial Vital Signs: Vital Signs Temperature 97.4 F L 10/11/18 11:34 Pulse Rate 86 10/11/18 11:34 Respiratory Rate 12 10/11/18 11:34 Blood Pressure 161/96 H 10/11/18 11:34 Pulse Oximetry 99 10/11/18 11:34 Course <Nataly Dyson PA-C - Last Filed: 10/11/18 20:27> Additional Information: Patient does not feel as though he can manage pain at home with oral medications. He had an episode of vomiting today as well. He is afebrile. Lipase is up a bit from his last visit here and he does have some bile duct thickening also a bit increased from last ultrasound. I spoke with Dr. Colin, container packer operator for patient's PCP Dr. Armstrong, who is agreeable with admission for observation and pain management. Prn medications ordered and she will see him later today. Orders Ordered: ED Orders 10/12/18 06:27 Complete Blood Count AUTO DIFF Routine Comprehensive Metabolic Panel Routine Lipase Routine Lipid Panel Routine Albuterol (Proventil) 1.25 mg INH Q4H PRN PRN Reason: Shortness Of Breath Albuterol/Ipratropium (Combivent Respimat) 2 puff INH BID [facility] Last Admin: 10/12/18 07:35 Dose: 2 puff Admin: 10/11/18 21:34 Dose: 2 puff Apixaban (Eliquis) 5 mg PO BID [facility] Last Admin: 10/11/18 22:06 Dose: 5 mg Bupropion HCl (Wellbutrin Xl) 300 mg PO QNOON [facility] Cyclobenzaprine HCl (Flexeril) 10 mg PO TID PRN PRN Reason: muscle spasm Duloxetine HCl (Cymbalta) 60 mg PO QNOON [facility] Hydromorphone HCl (Dilaudid) 1 mg IV Q2H PRN PRN Reason: Pain, Severe (7-10) Last Admin: 10/12/18 05:19 Dose: 1 mg Admin: 10/12/18 03:15 Dose: 1 mg Admin: 10/12/18 01:15 Dose: 1 mg Sodium Chloride (Normal Saline 0.9%) 1,000 mls @ 150 mls/hr IV CONT [facility] Last Admin: 10/12/18 01:18 Dose: 150 mls/hr Infusion: 10/12/18 01:18 Dose: 150 mls/hr Infusion: 10/11/18 22:26 Dose: 150 mls/hr Admin: 10/11/18 14:59 Dose: 75 mls/hr Lamotrigine (Lamictal) 200 mg PO BEDTIME [facility] Last Admin: 10/11/18 22:05 Dose: 200 mg Levothyroxine Sodium (Synthroid) 100 mcg PO 0600 [facility] Last Admin: 10/12/18 05:21 Dose: 100 mcg Liothyronine Sodium (Cytomel) 12.5 mcg PO DAILY [facility] Last Admin: 10/12/18 05:25 Dose: 12.5 mcg Lorazepam (Ativan) 1 mg IV Q4HR PRN PRN Reason: Anxiety Metoprolol Tartrate (Lopressor) 25 mg PO BID [facility] Last Admin: 10/11/18 22:06 Dose: 25 mg Montelukast Sodium (Singulair) 10 mg PO BEDTIME [facility] Last Admin: 10/11/18 22:05 Dose: 10 mg Naloxone HCl (Narcan) 0.2 mg IV Q2MIN PRN; Protocol PRN Reason: Opiate Reversal Fluticasone Furoate- Vilanterol [Breo Ellipta] 1 Puff) 1 puff INH RTDAILY [facility] Stored In Pharm 0 each PO . [facility] Non-Formulary Medication (Patient's Own Medication) 1 each TOP PRN PRN PRN Reason: Skin Irritation Ondansetron HCl (Zofran) 4 mg IV Q6HR PRN PRN Reason: Nausea And Vomiting Sumatriptan Succinate (Imitrex) 6 mg SUBCUT Q1H PRN PRN Reason: Migraine Headache Last Admin: 10/11/18 23:58 Dose: 6 mg Admin: 10/11/18 22:23 Dose: 6 mg Tamsulosin HCl (Flomax) 0.4 mg PO QNOON [facility] Discontinued Medications Hydromorphone HCl (Dilaudid) 2 mg IV NOW ONE Stop: 10/11/18 11:57 Last Admin: 10/11/18 12:25 Dose: 2 mg Hydromorphone HCl (Dilaudid) 2 mg IV Q4HR PRN PRN Reason: abdominal pain Last Admin: 10/11/18 17:27 Dose: 2 mg Hydromorphone HCl (Dilaudid) 1 mg IV Q2HR [facility] Last Admin: 10/11/18 23:19 Dose: Not Given Hydromorphone HCl (Dilaudid) 1 mg IV Q2HR PRN PRN Reason: Pain, Severe (7-10) Last Admin: 10/11/18 22:42 Dose: 1 mg Sodium Chloride (Normal Saline 0.9%) 1,000 mls @ 1,000 mls/hr IV BOLUS ONE Stop: 10/11/18 12:55 Last Infusion: 10/11/18 13:35 Dose: 0 mls/hr Admin: 10/11/18 12:25 Dose: 1,000 mls/hr Hydromorphone HCl 10 mg/ (Sodium Chloride) 50 mls @ 2.5 mls/hr IV CONT [facility]I; Protocol Last Titration: 10/11/18 21:57 Dose: 0 mg/hr, 0 mls/hr Admin: 10/11/18 19:23 Dose: 0.5 mg/hr, 2.5 mls/hr Ondansetron HCl (Zofran) 4 mg IV NOW ONE Stop: 10/11/18 11:57 Last Admin: 10/11/18 12:25 Dose: 4 mg Ondansetron HCl (Zofran) 4 mg IV Q4HR PRN PRN Reason: Nausea And Vomiting Sumatriptan Succinate (Imitrex) 6 mg SUBCUT NOW PRN PRN Reason: Migraine Headache Vital Signs - 8 hr 10/11/18 23:57 10/12/18 03:00 Temperature 97.8 F 98.2 F Pulse Rate 76 76 Respiratory Rate 18 18 Blood Pressure 122/86 145/90 H Pulse Oximetry 98 99 <Karen Pradhan DO - Last Filed: 10/12/18 07:46> Orders Ordered: ED Orders 10/12/18 06:27 Complete Blood Count AUTO DIFF Routine Comprehensive Metabolic Panel Routine Lipase Routine Lipid Panel Routine Albuterol (Proventil) 1.25 mg INH Q4H PRN PRN Reason: Shortness Of Breath Albuterol/Ipratropium (Combivent Respimat) 2 puff INH BID [facility] Last Admin: 10/12/18 07:35 Dose: 2 puff Admin: 10/11/18 21:34 Dose: 2 puff Apixaban (Eliquis) 5 mg PO BID [facility] Last Admin: 10/11/18 22:06 Dose: 5 mg Bupropion HCl (Wellbutrin Xl) 300 mg PO QNOON [facility] Cyclobenzaprine HCl (Flexeril) 10 mg PO TID PRN PRN Reason: muscle spasm Duloxetine HCl (Cymbalta) 60 mg PO QNOON [facility] Hydromorphone HCl (Dilaudid) 1 mg IV Q2H PRN PRN Reason: Pain, Severe (7-10) Last Admin: 10/12/18 05:19 Dose: 1 mg Admin: 10/12/18 03:15 Dose: 1 mg Admin: 10/12/18 01:15 Dose: 1 mg Sodium Chloride (Normal Saline 0.9%) 1,000 mls @ 150 mls/hr IV CONT [facility] Last Admin: 10/12/18 01:18 Dose: 150 mls/hr Infusion: 10/12/18 01:18 Dose: 150 mls/hr Infusion: 10/11/18 22:26 Dose: 150 mls/hr Admin: 10/11/18 14:59 Dose: 75 mls/hr Lamotrigine (Lamictal) 200 mg PO BEDTIME [facility] Last Admin: 10/11/18 22:05 Dose: 200 mg Levothyroxine Sodium (Synthroid) 100 mcg PO 0600 [facility] Last Admin: 10/12/18 05:21 Dose: 100 mcg Liothyronine Sodium (Cytomel) 12.5 mcg PO DAILY [facility] Last Admin: 10/12/18 05:25 Dose: 12.5 mcg Lorazepam (Ativan) 1 mg IV Q4HR PRN PRN Reason: Anxiety Metoprolol Tartrate (Lopressor) 25 mg PO BID [facility] Last Admin: 10/11/18 22:06 Dose: 25 mg Montelukast Sodium (Singulair) 10 mg PO BEDTIME [facility] Last Admin: 10/11/18 22:05 Dose: 10 mg Naloxone HCl (Narcan) 0.2 mg IV Q2MIN PRN; Protocol PRN Reason: Opiate Reversal Fluticasone Furoate- Vilanterol [Breo Ellipta] 1 Puff) 1 puff INH RTDAILY [facility] Stored In Pharm 0 each PO . [facility] Non-Formulary Medication (Patient's Own Medication) 1 each TOP PRN PRN PRN Reason: Skin Irritation Ondansetron HCl (Zofran) 4 mg IV Q6HR PRN PRN Reason: Nausea And Vomiting Sumatriptan Succinate (Imitrex) 6 mg SUBCUT Q1H PRN PRN Reason: Migraine Headache Last Admin: 10/11/18 23:58 Dose: 6 mg Admin: 10/11/18 22:23 Dose: 6 mg Tamsulosin HCl (Flomax) 0.4 mg PO QNOON [facility] Discontinued Medications Hydromorphone HCl (Dilaudid) 2 mg IV NOW ONE Stop: 10/11/18 11:57 Last Admin: 10/11/18 12:25 Dose: 2 mg Hydromorphone HCl (Dilaudid) 2 mg IV Q4HR PRN PRN Reason: abdominal pain Last Admin: 10/11/18 17:27 Dose: 2 mg Hydromorphone HCl (Dilaudid) 1 mg IV Q2HR [facility] Last Admin: 10/11/18 23:19 Dose: Not Given Hydromorphone HCl (Dilaudid) 1 mg IV Q2HR PRN PRN Reason: Pain, Severe (7-10) Last Admin: 10/11/18 22:42 Dose: 1 mg Sodium Chloride (Normal Saline 0.9%) 1,000 mls @ 1,000 mls/hr IV BOLUS ONE Stop: 10/11/18 12:55 Last Infusion: 10/11/18 13:35 Dose: 0 mls/hr Admin: 10/11/18 12:25 Dose: 1,000 mls/hr Hydromorphone HCl 10 mg/ (Sodium Chloride) 50 mls @ 2.5 mls/hr IV CONT [facility]; Protocol Last Titration: 10/11/18 21:57 Dose: 0 mg/hr, 0 mls/hr Admin: 10/11/18 19:23 Dose: 0.5 mg/hr, 2.5 mls/hr Ondansetron HCl (Zofran) 4 mg IV NOW ONE Stop: 10/11/18 11:57 Last Admin: 10/11/18 12:25 Dose: 4 mg Ondansetron HCl (Zofran) 4 mg IV Q4HR PRN PRN Reason: Nausea And Vomiting Sumatriptan Succinate (Imitrex) 6 mg SUBCUT NOW PRN PRN Reason: Migraine Headache Vital Signs - 8 hr 10/11/18 23:57 10/12/18 03:00 Temperature 97.8 F 98.2 F Pulse Rate 76 76 Respiratory Rate 18 18 Blood Pressure 122/86 145/90 H Pulse Oximetry 98 99 MDM - Abdominal Pain <Nataly Dyson PA-C - Last Filed: 10/11/18 20:27> Lab Data Attestation: I reviewed the patient's lab results. Result diagrams: 10/12/18 06:27 10/12/18 06:27 Lab Results 10/11/18 10/11/18 10/11/18 Range/Units 12:08 12:08 12:08 WBC 5.5 (4.5-11.0) X10^3/uL RBC 5.08 (4.5-5.9) X10^6/uL Hgb 15.8 (13.5-17.5) g/dL Hct 47.3 (41-53) % MCV 93.0 (80-100) fL MCH 31.1 (26-34) PG MCHC 33.4 (30-36) % RDW 14.6 (11.6-14.8) % Plt Count 166 (150-400) X10^3/uL Neut % (Auto) 62.6 (50-75) % Lymph % (Auto) 24.0 L (25-40) % [place] % (Auto) 11.7 (3-14) % Eos % (Auto) 0.8 L (2-4) % Baso % (Auto) 0.9 (0-2) % Neut # (Auto) 3500 (0280-4085) /uL Lymph # (Auto) 1300 (9741-6194) /uL [place] # (Auto) 600 (0-900) /uL Eos # (Auto) 0 (0-450) /uL Baso # (Auto) 0 (0-100) /uL PT 12.2 (10.1-12.7) SECONDS INR 1.1 (0.9-1.3) APTT 41 H D (26.4-36.2) SECONDS Sodium 140 (137-145) mmol/L Potassium 4.5 (3.4-5.1) mmol/L Chloride 101 (98-107) mmol/L Carbon Dioxide 32 (22-32) mmol/L BUN 16 (9-20) mg/dL Creatinine 1.00 (0.66-1.25) mg/dL Estimated GFR > 60.0 (>60) mL/min BUN/Creatinine Ratio 16.0 (6-22) Glucose 102 (80-110) mg/dL Lactate (0.7-2.1) mmol/L Calcium 9.6 (8.4-10.2) mg/dL Total Bilirubin 0.5 (0.2-1.3) mg/dL AST 30 (17-59) IU/L ALT 45 (21-72) IU/L Alkaline Phosphatase 100 (38-126) U/L Total Protein 6.8 (6.3-8.2) g/dL Albumin 4.3 (3.5-5.0) g/dL Globulin 2.5 (1.7-4.1) g/dL Albumin/Globulin Ratio 1.7 (1.0-2.8) Triglycerides (35-150) mg/dL Cholesterol (140-199) mg/dL LDL Cholesterol, Calc (<100) mg/dL HDL Cholesterol (40-60) mg/dL Lipase 1055 H (23-300) U/L Urine Color Urine Appearance Urine pH (4.5-8.0) Ur Specific [place] (1.000-1.035) Urine Protein (Negative) Urine Glucose (UA) (Negative) g/dL Urine Ketones (NEGATIVE) Urine Occult Blood (Negative) Urine Nitrate (Negative) Urine Bilirubin (NEGATIVE) Urine Urobilinogen (0.2) E.U./dL Ur Leukocyte Esterase (NEGATIVE) Urine RBC (0-5/HPF) Urine WBC (0-5/HPF) Urine Bacteria (None) Ur Culture Indicated? Micro UA Comment 10/11/18 10/11/18 10/12/18 Range/Units 12:30 14:25 06:27 WBC 7.1 (4.5-11.0) X10^3/uL RBC 4.78 (4.5-5.9) X10^6/uL Hgb 14.9 (13.5-17.5) g/dL Hct 45.0 (41-53) % MCV 94.0 (80-100) fL MCH 31.1 (26-34) PG MCHC 33.0 (30-36) % RDW 14.7 (11.6-14.8) % Plt Count 158 (150-400) X10^3/uL Neut % (Auto) 69.3 (50-75) % Lymph % (Auto) 17.8 L (25-40) % [place] % (Auto) 11.7 (3-14) % Eos % (Auto) 0.7 L (2-4) % Baso % (Auto) 0.5 (0-2) % Neut # (Auto) 4900 (5916-8848) /uL Lymph # (Auto) 1300 (9892-2450) /uL [place] # (Auto) 800 (0-900) /uL Eos # (Auto) 100 (0-450) /uL Baso # (Auto) 0 (0-100) /uL PT (10.1-12.7) SECONDS INR (0.9-1.3) APTT (26.4-36.2) SECONDS Sodium (137-145) mmol/L Potassium (3.4-5.1) mmol/L Chloride (98-107) mmol/L Carbon Dioxide (22-32) mmol/L BUN (9-20) mg/dL Creatinine (0.66-1.25) mg/dL Estimated GFR (>60) mL/min BUN/Creatinine Ratio (6-22) Glucose (80-110) mg/dL Lactate 1.2 (0.7-2.1) mmol/L Calcium (8.4-10.2) mg/dL Total Bilirubin (0.2-1.3) mg/dL AST (17-59) IU/L ALT (21-72) IU/L Alkaline Phosphatase (38-126) U/L Total Protein (6.3-8.2) g/dL Albumin (3.5-5.0) g/dL Globulin (1.7-4.1) g/dL Albumin/Globulin Ratio (1.0-2.8) Triglycerides (35-150) mg/dL Cholesterol (140-199) mg/dL LDL Cholesterol, Calc (<100) mg/dL HDL Cholesterol (40-60) mg/dL Lipase (23-300) U/L Urine Color Yellow Urine Appearance Clear Urine pH 5.0 (4.5-8.0) Ur Specific [place] 1.020 (1.000-1.035) Urine Protein Negative (Negative) Urine Glucose (UA) Negative (Negative) g/dL Urine Ketones Negative (NEGATIVE) Urine Occult Blood Negative (Negative) Urine Nitrate Negative (Negative) Urine Bilirubin Negative (NEGATIVE) Urine Urobilinogen 0.2 (0.2) E.U./dL Ur Leukocyte Esterase Negative (NEGATIVE) Urine RBC None seen (0-5/HPF) Urine WBC None seen (0-5/HPF) Urine Bacteria None seen (None) Ur Culture Indicated? Cult not indicated Micro UA Comment Microscopic normal 10/12/18 Range/Units 06:27 WBC (4.5-11.0) X10^3/uL RBC (4.5-5.9) X10^6/uL Hgb (13.5-17.5) g/dL Hct (41-53) % MCV (80-100) fL MCH (26-34) PG MCHC (30-36) % RDW (11.6-14.8) % Plt Count (150-400) X10^3/uL Neut % (Auto) (50-75) % Lymph % (Auto) (25-40) % [place] % (Auto) (3-14) % Eos % (Auto) (2-4) % Baso % (Auto) (0-2) % Neut # (Auto) (3294-6633) /uL Lymph # (Auto) (3699-9369) /uL [place] # (Auto) (0-900) /uL Eos # (Auto) (0-450) /uL Baso # (Auto) (0-100) /uL PT (10.1-12.7) SECONDS INR (0.9-1.3) APTT (26.4-36.2) SECONDS Sodium 140 (137-145) mmol/L Potassium 4.7 (3.4-5.1) mmol/L Chloride 104 (98-107) mmol/L Carbon Dioxide 32 (22-32) mmol/L BUN 14 (9-20) mg/dL Creatinine 1.00 (0.66-1.25) mg/dL Estimated GFR > 60.0 (>60) mL/min BUN/Creatinine Ratio 14.0 (6-22) Glucose 77 L (80-110) mg/dL Lactate (0.7-2.1) mmol/L Calcium 8.7 (8.4-10.2) mg/dL Total Bilirubin 0.6 (0.2-1.3) mg/dL AST 24 (17-59) IU/L ALT 44 (21-72) IU/L Alkaline Phosphatase 91 (38-126) U/L Total Protein 6.2 L (6.3-8.2) g/dL Albumin 3.9 (3.5-5.0) g/dL Globulin 2.3 (1.7-4.1) g/dL Albumin/Globulin Ratio 1.7 (1.0-2.8) Triglycerides 89 (35-150) mg/dL Cholesterol 117 L (140-199) mg/dL LDL Cholesterol, Calc 58 (<100) mg/dL HDL Cholesterol 41 (40-60) mg/dL Lipase 71 D (23-300) U/L Urine Color Urine Appearance Urine pH (4.5-8.0) Ur Specific [place] (1.000-1.035) Urine Protein (Negative) Urine Glucose (UA) (Negative) g/dL Urine Ketones (NEGATIVE) Urine Occult Blood (Negative) Urine Nitrate (Negative) Urine Bilirubin (NEGATIVE) Urine Urobilinogen (0.2) E.U./dL Ur Leukocyte Esterase (NEGATIVE) Urine RBC (0-5/HPF) Urine WBC (0-5/HPF) Urine Bacteria (None) Ur Culture Indicated? Micro UA Comment Imaging Data Chest x-ray: Radiologist's impression: [address] [address] XRay Report Signed Patient: Mario Hemphill [facility]#: [id number] : 4Acct:[id number] Age/Sex: 63 / MDate of Service: 10/11/18 Loc: ED Accession Number: [id number] Procedure: XR chest 1V Ordering Provider: Nataly Dyson P.A-C PROCEDURE: XR CHEST 1V INDICATIONS: painful breathing/asthma TECHNIQUE: One view of the chest was acquired. COMPARISON: [facility], CR, XR CHEST 1V, 08/29/2018, 12:51. [facility], CR, XR CHEST 1V, 06/27/2018, 5:34. FINDINGS: Surgical changes and devices: Left humeral arthroplasty, left subclavian approach Port-A-Cath. Low cervical spine anterior fusion plate partially visualized. Lungs and pleura: Lungs are clear. No pleural effusions or pneumothorax. Mediastinum: Mediastinal contours appear normal. Heart size is normal. Bones and chest wall: No suspicious bony lesions. Overlying soft tissues appear unremarkable. IMPRESSION: Postsurgical changes as discussed, no acute disease of the chest, source of painful breathing is not seen. Dictated by: Yao Vargas M.D. on 10/11/2018 at 12:41 Approved by: Yao Vargas M.D. on 10/11/2018 at 12:41 US - abdomen: Radiologist's impression: [address] [address] Ultrasound Report Signed Patient: Mario Hemphill [facility]#: [id number] : 4Acct:[id number] Age/Sex: 63 / MDate of Service: 10/11/18 Loc: ED Accession Number: [id number] Procedure: US abdomen limited Ordering Provider: Nataly Dyson P.A-C PROCEDURE: US ABDOMEN LIMITED INDICATIONS: RUQ PAIN/PANCREATITIS TECHNIQUE: Real-time focused scanning was performed of the abdomen, with image documentation. COMPARISON: [facility], US, US ABDOMEN COMPLETE, 02/21/2018, 9:58. [facility], CT, CT ANGIO ABDOMEN/FEMORAL, 03/14/2018, 7:18. [facility], US, US ABDOMEN LIMITED, 10/09/2018, 13:06. FINDINGS: Visualized liver demonstrates normal echotexture. Gallbladder is normal. No gallstones, gallbladder wall thickening, pericholecystic fluid or sonographic Alvarado's sign. Visualized liver demonstrates normal echotexture. Common bile duct is dilated measuring 9.8 mm in diameter. The pancreas is not well seen. There is a 4.3 cm simple appearing cyst in the upper pole the right kidney. IMPRESSION: 1. There is common bile duct dilation. Please correlate with serum bilirubin for biliary obstruction. 2. No gallstones or ultrasound evidence for acute cholecystitis. 3. A 4.3 cm simple cyst in the superior pole the right kidney. 4. Pancreas is not well-seen. Dictated by: Savanna Dominguez M.D. on 10/11/2018 at 13:11 Approved by: Savanna Dominguez M.D. on 10/11/2018 at 13:16 <Karen Pradhan DO - Last Filed: 10/12/18 07:46> Lab Data Lab Results 10/11/18 10/11/18 10/11/18 Range/Units 12:08 12:08 12:08 WBC 5.5 (4.5-11.0) X10^3/uL RBC 5.08 (4.5-5.9) X10^6/uL Hgb 15.8 (13.5-17.5) g/dL Hct 47.3 (41-53) % MCV 93.0 (80-100) fL MCH 31.1 (26-34) PG MCHC 33.4 (30-36) % RDW 14.6 (11.6-14.8) % Plt Count 166 (150-400) X10^3/uL Neut % (Auto) 62.6 (50-75) % Lymph % (Auto) 24.0 L (25-40) % [place] % (Auto) 11.7 (3-14) % Eos % (Auto) 0.8 L (2-4) % Baso % (Auto) 0.9 (0-2) % Neut # (Auto) 3500 (7914-5645) /uL Lymph # (Auto) 1300 (7347-9140) /uL [place] # (Auto) 600 (0-900) /uL Eos # (Auto) 0 (0-450) /uL Baso # (Auto) 0 (0-100) /uL PT 12.2 (10.1-12.7) SECONDS INR 1.1 (0.9-1.3) APTT 41 H D (26.4-36.2) SECONDS Sodium 140 (137-145) mmol/L Potassium 4.5 (3.4-5.1) mmol/L Chloride 101 (98-107) mmol/L Carbon Dioxide 32 (22-32) mmol/L BUN 16 (9-20) mg/dL Creatinine 1.00 (0.66-1.25) mg/dL Estimated GFR > 60.0 (>60) mL/min BUN/Creatinine Ratio 16.0 (6-22) Glucose 102 (80-110) mg/dL Lactate (0.7-2.1) mmol/L Calcium 9.6 (8.4-10.2) mg/dL Total Bilirubin 0.5 (0.2-1.3) mg/dL AST 30 (17-59) IU/L ALT 45 (21-72) IU/L Alkaline Phosphatase 100 (38-126) U/L Total Protein 6.8 (6.3-8.2) g/dL Albumin 4.3 (3.5-5.0) g/dL Globulin 2.5 (1.7-4.1) g/dL Albumin/Globulin Ratio 1.7 (1.0-2.8) Triglycerides (35-150) mg/dL Cholesterol (140-199) mg/dL LDL Cholesterol, Calc (<100) mg/dL HDL Cholesterol (40-60) mg/dL Lipase 1055 H (23-300) U/L Urine Color Urine Appearance Urine pH (4.5-8.0) Ur Specific [place] (1.000-1.035) Urine Protein (Negative) Urine Glucose (UA) (Negative) g/dL Urine Ketones (NEGATIVE) Urine Occult Blood (Negative) Urine Nitrate (Negative) Urine Bilirubin (NEGATIVE) Urine Urobilinogen (0.2) E.U./dL Ur Leukocyte Esterase (NEGATIVE) Urine RBC (0-5/HPF) Urine WBC (0-5/HPF) Urine Bacteria (None) Ur Culture Indicated? Micro UA Comment 10/11/18 10/11/18 10/12/18 Range/Units 12:30 14:25 06:27 WBC 7.1 (4.5-11.0) X10^3/uL RBC 4.78 (4.5-5.9) X10^6/uL Hgb 14.9 (13.5-17.5) g/dL Hct 45.0 (41-53) % MCV 94.0 (80-100) fL MCH 31.1 (26-34) PG MCHC 33.0 (30-36) % RDW 14.7 (11.6-14.8) % Plt Count 158 (150-400) X10^3/uL Neut % (Auto) 69.3 (50-75) % Lymph % (Auto) 17.8 L (25-40) % [place] % (Auto) 11.7 (3-14) % Eos % (Auto) 0.7 L (2-4) % Baso % (Auto) 0.5 (0-2) % Neut # (Auto) 4900 (2391-1481) /uL Lymph # (Auto) 1300 (6550-1202) /uL [place] # (Auto) 800 (0-900) /uL Eos # (Auto) 100 (0-450) /uL Baso # (Auto) 0 (0-100) /uL PT (10.1-12.7) SECONDS INR (0.9-1.3) APTT (26.4-36.2) SECONDS Sodium (137-145) mmol/L Potassium (3.4-5.1) mmol/L Chloride (98-107) mmol/L Carbon Dioxide (22-32) mmol/L BUN (9-20) mg/dL Creatinine (0.66-1.25) mg/dL Estimated GFR (>60) mL/min BUN/Creatinine Ratio (6-22) Glucose (80-110) mg/dL Lactate 1.2 (0.7-2.1) mmol/L Calcium (8.4-10.2) mg/dL Total Bilirubin (0.2-1.3) mg/dL AST (17-59) IU/L ALT (21-72) IU/L Alkaline Phosphatase (38-126) U/L Total Protein (6.3-8.2) g/dL Albumin (3.5-5.0) g/dL Globulin (1.7-4.1) g/dL Albumin/Globulin Ratio (1.0-2.8) Triglycerides (35-150) mg/dL Cholesterol (140-199) mg/dL LDL Cholesterol, Calc (<100) mg/dL HDL Cholesterol (40-60) mg/dL Lipase (23-300) U/L Urine Color Yellow Urine Appearance Clear Urine pH 5.0 (4.5-8.0) Ur Specific [place] 1.020 (1.000-1.035) Urine Protein Negative (Negative) Urine Glucose (UA) Negative (Negative) g/dL Urine Ketones Negative (NEGATIVE) Urine Occult Blood Negative (Negative) Urine Nitrate Negative (Negative) Urine Bilirubin Negative (NEGATIVE) Urine Urobilinogen 0.2 (0.2) E.U./dL Ur Leukocyte Esterase Negative (NEGATIVE) Urine RBC None seen (0-5/HPF) Urine WBC None seen (0-5/HPF) Urine Bacteria None seen (None) Ur Culture Indicated? Cult not indicated Micro UA Comment Microscopic normal 10/12/18 Range/Units 06:27 WBC (4.5-11.0) X10^3/uL RBC (4.5-5.9) X10^6/uL Hgb (13.5-17.5) g/dL Hct (41-53) % MCV (80-100) fL MCH (26-34) PG MCHC (30-36) % RDW (11.6-14.8) % Plt Count (150-400) X10^3/uL Neut % (Auto) (50-75) % Lymph % (Auto) (25-40) % [place] % (Auto) (3-14) % Eos % (Auto) (2-4) % Baso % (Auto) (0-2) % Neut # (Auto) (7795-6411) /uL Lymph # (Auto) (7347-0224) /uL [place] # (Auto) (0-900) /uL Eos # (Auto) (0-450) /uL Baso # (Auto) (0-100) /uL PT (10.1-12.7) SECONDS INR (0.9-1.3) APTT (26.4-36.2) SECONDS Sodium 140 (137-145) mmol/L Potassium 4.7 (3.4-5.1) mmol/L Chloride 104 (98-107) mmol/L Carbon Dioxide 32 (22-32) mmol/L BUN 14 (9-20) mg/dL Creatinine 1.00 (0.66-1.25) mg/dL Estimated GFR > 60.0 (>60) mL/min BUN/Creatinine Ratio 14.0 (6-22) Glucose 77 L (80-110) mg/dL Lactate (0.7-2.1) mmol/L Calcium 8.7 (8.4-10.2) mg/dL Total Bilirubin 0.6 (0.2-1.3) mg/dL AST 24 (17-59) IU/L ALT 44 (21-72) IU/L Alkaline Phosphatase 91 (38-126) U/L Total Protein 6.2 L (6.3-8.2) g/dL Albumin 3.9 (3.5-5.0) g/dL Globulin 2.3 (1.7-4.1) g/dL Albumin/Globulin Ratio 1.7 (1.0-2.8) Triglycerides 89 (35-150) mg/dL Cholesterol 117 L (140-199) mg/dL LDL Cholesterol, Calc 58 (<100) mg/dL HDL Cholesterol 41 (40-60) mg/dL Lipase 71 D (23-300) U/L Urine Color Urine Appearance Urine pH (4.5-8.0) Ur Specific [place] (1.000-1.035) Urine Protein (Negative) Urine Glucose (UA) (Negative) g/dL Urine Ketones (NEGATIVE) Urine Occult Blood (Negative) Urine Nitrate (Negative) Urine Bilirubin (NEGATIVE) Urine Urobilinogen (0.2) E.U./dL Ur Leukocyte Esterase (NEGATIVE) Urine RBC (0-5/HPF) Urine WBC (0-5/HPF) Urine Bacteria (None) Ur Culture Indicated? Micro UA Comment Discharge Plan Departure Patient Disposition: Admitted as Observation Clinical Impression: Acute pancreatitis Qualifiers: Pancreatitis type: idiopathic Acute pancreatitis complication: no infection or necrosis Qualified Code(s): K85.00 - Idiopathic acute pancreatitis without necrosis or infection Discharge Date/Time: 10/11/18 13:55 Interventions: ED Discharge Assessment Last Done: 10/11/18 13:55 Admit Date/Time: 10/11/18 13:35 Admit Provider: Gloria Colin <Karen Pradhan DO - Last Filed: 10/12/18 07:46> Cosign ED Attending Freda Attestation: I was immediately available in the department for consultation. Documentation has been reviewed. I agree with assessment and plan.
--- NOTE | 2018-10-11 11:56 | DI.US.S_ITS ---
PROCEDURE: US ABDOMEN LIMITED INDICATIONS: RUQ PAIN/PANCREATITIS TECHNIQUE: Real-time focused scanning was performed of the abdomen, with image documentation. COMPARISON: [facility], US, US ABDOMEN COMPLETE, 02/21/2018, 9:58. [facility], CT, CT ANGIO ABDOMEN/FEMORAL, 03/14/2018, 7:18. [facility], US, US ABDOMEN LIMITED, 10/09/2018, 13:06. FINDINGS: Visualized liver demonstrates normal echotexture. Gallbladder is normal. No gallstones, gallbladder wall thickening, pericholecystic fluid or sonographic Alvarado's sign. Visualized liver demonstrates normal echotexture. Common bile duct is dilated measuring 9.8 mm in diameter. The pancreas is not well seen. There is a 4.3 cm simple appearing cyst in the upper pole the right kidney. IMPRESSION: 1. There is common bile duct dilation. Please correlate with serum bilirubin for biliary obstruction. 2. No gallstones or ultrasound evidence for acute cholecystitis. 3. A 4.3 cm simple cyst in the superior pole the right kidney. 4. Pancreas is not well-seen. Dictated by: Savanna Dominguez M.D. on 10/11/2018 at 13:11 Approved by: Savanna Dominguez M.D. on 10/11/2018 at 13:16
--- NOTE | 2018-10-11 11:57 | DI.RAD.S_ITS ---
PROCEDURE: XR CHEST 1V INDICATIONS: painful breathing/asthma TECHNIQUE: One view of the chest was acquired. COMPARISON: [facility], CR, XR CHEST 1V, 08/29/2018, 12:51. [facility], CR, XR CHEST 1V, 06/27/2018, 5:34. FINDINGS: Surgical changes and devices: Left humeral arthroplasty, left subclavian approach Port-A-Cath. Low cervical spine anterior fusion plate partially visualized. Lungs and pleura: Lungs are clear. No pleural effusions or pneumothorax. Mediastinum: Mediastinal contours appear normal. Heart size is normal. Bones and chest wall: No suspicious bony lesions. Overlying soft tissues appear unremarkable. IMPRESSION: Postsurgical changes as discussed, no acute disease of the chest, source of painful breathing is not seen. Dictated by: Yao Vargas M.D. on 10/11/2018 at 12:41 Approved by: Yao Vargas M.D. on 10/11/2018 at 12:41
--- NOTE | 2018-10-11 12:06 | ED_ITS ---
HPI - Abdominal Pain <Nataly Dyson PA-C - Last Filed: 10/11/18 20:27> General Chief Complaint: Abdominal Pain Stated Complaint: abdominal pain Time Seen by Provider: 10/11/18 11:45 Source: patient Mode of arrival: ambulatory Limitations: no limitations History of Present Illness HPI narrative: This 63-year-old gentleman returns to ED secondary to persistent at right upper quadrant pain and nausea. He was seen here 2 days ago for same symptoms, states he has been NPO except for water and thought he could manage pain at home but at this point does not feel like he can. He states that Zofran prescription was not available so has taken Compazine, which he already had, as needed, along with Canyon. He states he had to take for Canyon at a time to get any relief and is out (he has history of addiction to prescribed opioids, has been off of them for some time but states he does have a high pain tolerance related to this). He states that he feels a little bit like his balance is off or slightly lightheaded at times which he thinks is due to not eating. Also feeling a little bit anxious. He states right upper quadrant can hurt more with deep breath, but denies dyspnea, chest pain, any pain or swelling in the extremities. He denies any urinary symptoms, bowel changes, new fever, or other new complaints on systems review Related Data Home Medications Medication Instructions Recorded Confirmed Breo Ellipta 1 puff INH DAILY #0 12/03/16 10/11/18 Combivent Respimat See Rx Instructions .ROUTE 04/15/17 10/11/18 .COMPLEX #0 MDD 6 albuterol sulfate 1.25 mg INH Q4HP PRN #0 05/24/17 10/11/18 albuterol sulfate [Ventolin HFA] 1 puff INH SEE INSTRUCTIONS 08/22/17 10/11/18 Vitamin B-12 1 tab PO DAILY 02/21/18 10/11/18 clobetasol 1 applic TOPICAL SUSA 02/21/18 10/11/18 desonide 1 applic TOPICAL PRN PRN 02/21/18 10/11/18 ketoconazole 1 applic TOPICAL DAILY PRN 02/21/18 10/11/18 multivitamin 1 tab PO DAILY 02/21/18 10/11/18 tamsulosin [Flomax] 0.4 mg PO QNOON 02/21/18 10/11/18 calcium citrate 250 mg tablet 500 mg PO BID tab 03/28/18 10/11/18 apixaban 5 mg tablet 5 mg PO BID 05/30/18 10/11/18 sumatriptan 100 mg tablet 200 mg PO Q2-4H PRN #12 tab 08/11/18 10/11/18 sumatriptan 6 mg/0.5 mL 1 dose SUBCUT PRN PRN #10 ml 08/11/18 10/11/18 subcutaneous pen injector sumatriptan 20 mg NASAL Q2H PRN 08/29/18 10/11/18 clonazepam 2 mg PO TID 10/09/18 10/11/18 Previous Rx's Medication Instructions Recorded cyclobenzaprine 10 mg tablet 10 mg PO TID PRN #30 tab 01/09/18 bupropion HCl XL 300 mg 24 hr 300 mg PO QNOON #7 tab 05/17/18 tablet, extended release eszopiclone 2 mg tablet 2 mg PO BEDTIME #14 tab 05/18/18 liothyronine 25 mcg tablet 12.5 mcg PO DAILY #14 tab 05/18/18 metoprolol tartrate 25 mg tablet 25 mg PO BID #28 tab 05/18/18 montelukast 10 mg tablet 10 mg PO BEDTIME #14 tab 05/18/18 fremanezumab-vfrm 225 mg/1.5 mL 225 mg SUBCUT QMONTH #1.5 ml 05/30/18 subcutaneous syringe nortriptyline 10 mg capsule 10 mg PO BEDTIME #30 cap 05/31/18 duloxetine 60 mg capsule,delayed 60 mg PO QNOON #30 cap 06/30/18 release atorvastatin 10 mg tablet 10 mg PO BEDTIME #30 tab 07/24/18 levothyroxine 100 mcg tablet 100 mcg PO QAM #90 tab 08/01/18 lamotrigine 200 mg tablet 200 mg PO BEDTIME #30 tab 08/24/18 hydrocodone-acetaminophen 1 tab PO Q4H PRN #14 tab 10/09/18 ondansetron 4 mg PO Q6H PRN #20 tab 10/09/18 Allergies Allergy/AdvReac Type Severity Reaction Status Date / Time doxycycline [DOXYCYCLINE] Allergy Mild ITCHING Verified 10/09/18 09:53 ketorolac [KETOROLAC] Allergy Unknown Verified 10/09/18 09:53 NSAIDS (Non-Steroidal AdvReac Unknown TO AVOID Verified 10/09/18 09:53 Anti-Inflamma R/T [NSAIDS (NON-STEROIDAL GASTRIC ANTI-INFLAMMA] BYPASS Review of Systems <Nataly Dyson PA-C - Last Filed: 10/11/18 20:27> Review of Systems ROS Unobtainable: All systems reviewed & are unremarkable except as noted in HPI and below PFSH <Nataly Dyson PA-C - Last Filed: 10/11/18 20:27> Medical History Insomnia (Chronic) Mixed hyperlipidemia (Chronic) Hypothyroidism (Chronic) Major depressive disorder, recurrent episode, severe (Chronic) Anxiety (Chronic) Paroxysmal atrial fibrillation (Chronic) Chronic pain syndrome (Chronic 11/08/16) Post traumatic stress disorder (PTSD) (Chronic) Sleep apnea (Ruled-out) Cognitive disorder (Chronic 04/24/14) Obesity with body mass index (BMI) of 30.0 to 39.9 (Chronic 12/06/14) Other iron deficiency anemia (Chronic 02/03/15) Chronic left shoulder pain (Chronic 01/20/16) Chronic obstructive pulmonary disease (Chronic 08/05/17) H/O renal calculi (Inactive) H/O migraine (Inactive) S/P ECT (electroconvulsive therapy) (Acute) Sarcoidosis (Chronic) Psoriasis (Chronic) Iron deficiency (Chronic) 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) Vitamin B12 deficiency (Chronic 02/19/11) History of stroke (Inactive) Hypersomnia (Chronic) Narcotic dependence (Resolved 09/01/16) Patent foramen ovale (Resolved) Pneumonia (Resolved) Surgical History History of gastric bypass (Inactive ~2003) History of total shoulder replacement (Inactive ~12/2015) S/P lumbar laminectomy (Inactive ~10/2017) History of Cris-en-Y gastric bypass (Inactive ~2003) Family History Father No problems noted. Mother No problems noted. 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 yeimy/jainism: Gnosticism travel history: over 6 months ago and other Smoking Status: Former smoker Tobacco: How many years used: 10 Smokeless tobacco user: other quit status: quit date established second hand exposure: Yes (Childhood) alcohol intake: current substance use type: does not use Family History Father No problems noted. Mother No problems noted. 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 yeimy/jainism: Gnosticism travel history: over 6 months ago and other Smoking Status: Former smoker Tobacco: How many years used: 10 Smokeless tobacco user: other quit status: quit date established second hand exposure: Yes (Childhood) alcohol intake: current substance use type: does not use Exam <Nataly Dyson PA-C - Last Filed: 10/11/18 20:27> Narrative Exam Narrative: GENERAL APPEARANCE: Patient resting comfortably, in no distress. HEENT: PERRL, EOMI, no scleral icterus NECK: Supple THROAT: Normal oropharynx LUNGS: Clear to auscultation bilaterally. HEART: Rate and rhythm regular, normal S1 and S2, no S3 or S4. ABDOMEN: Soft, nondistended, bowel sounds present x 4 quadrants, no masses palpable, +right upper quadrant tenderness and epigastric tenderness, +Alvarado sign. No tenderness elsewhere EXTREMITIES: No edema, no calf tender DERMATOLOGIC: No jaundice or exanthem NEUROLOGIC: Alert and oriented with normal speech and coordination Initial Vital Signs Initial Vital Signs: Vital Signs Temperature 97.4 F L 10/11/18 11:34 Pulse Rate 86 10/11/18 11:34 Respiratory Rate 12 07/03/19 11:34 Blood Pressure 161/96 H 10/11/18 11:34 Pulse Oximetry 99 10/11/18 11:34 <Karen Pradhan DO - Last Filed: 10/12/18 07:46> Initial Vital Signs Initial Vital Signs: Vital Signs Temperature 97.4 F L 10/11/18 11:34 Pulse Rate 86 10/11/18 11:34 Respiratory Rate 12 10/11/18 11:34 Blood Pressure 161/96 H 10/11/18 11:34 Pulse Oximetry 99 10/11/18 11:34 Course <Nataly Dyson PA-C - Last Filed: 10/11/18 20:27> Additional Information: Patient does not feel as though he can manage pain at home with oral medications. He had an episode of vomiting today as well. He is afebrile. Lipase is up a bit from his last visit here and he does have some bile duct thickening also a bit increased from last ultrasound. I spoke with Dr. Colin, information broker for patient's PCP Dr. Armstrong, who is agreeable with admission for observation and pain management. Prn medications ordered and she will see him later today. Orders Ordered: ED Orders 10/12/18 06:27 Complete Blood Count AUTO DIFF Routine Comprehensive Metabolic Panel Routine Lipase Routine Lipid Panel Routine Albuterol (Proventil) 1.25 mg INH Q4H PRN PRN Reason: Shortness Of Breath Albuterol/Ipratropium (Combivent Respimat) 2 puff INH BID [facility] Last Admin: 10/12/18 07:35 Dose: 2 puff Admin: 10/11/18 21:34 Dose: 2 puff Apixaban (Eliquis) 5 mg PO BID [facility] Last Admin: 10/11/18 22:06 Dose: 5 mg Bupropion HCl (Wellbutrin Xl) 300 mg PO QNOON [facility] Cyclobenzaprine HCl (Flexeril) 10 mg PO TID PRN PRN Reason: muscle spasm Duloxetine HCl (Cymbalta) 60 mg PO QNOON [facility] Hydromorphone HCl (Dilaudid) 1 mg IV Q2H PRN PRN Reason: Pain, Severe (7-10) Last Admin: 10/12/18 05:19 Dose: 1 mg Admin: 10/12/18 03:15 Dose: 1 mg Admin: 10/12/18 01:15 Dose: 1 mg Sodium Chloride (Normal Saline 0.9%) 1,000 mls @ 150 mls/hr IV CONT [facility] Last Admin: 10/12/18 01:18 Dose: 150 mls/hr Infusion: 10/12/18 01:18 Dose: 150 mls/hr Infusion: 10/11/18 22:26 Dose: 150 mls/hr Admin: 10/11/18 14:59 Dose: 75 mls/hr Lamotrigine (Lamictal) 200 mg PO BEDTIME [facility] Last Admin: 10/11/18 22:05 Dose: 200 mg Levothyroxine Sodium (Synthroid) 100 mcg PO 0600 [facility] Last Admin: 10/12/18 05:21 Dose: 100 mcg Liothyronine Sodium (Cytomel) 12.5 mcg PO DAILY [facility] Last Admin: 10/12/18 05:25 Dose: 12.5 mcg Lorazepam (Ativan) 1 mg IV Q4HR PRN PRN Reason: Anxiety Metoprolol Tartrate (Lopressor) 25 mg PO BID [facility] Last Admin: 10/11/18 22:06 Dose: 25 mg Montelukast Sodium (Singulair) 10 mg PO BEDTIME [facility] Last Admin: 10/11/18 22:05 Dose: 10 mg Naloxone HCl (Narcan) 0.2 mg IV Q2MIN PRN; Protocol PRN Reason: Opiate Reversal Fluticasone Furoate- Vilanterol [Breo Ellipta] 1 Puff) 1 puff INH RTDAILY [facility] Stored In Pharm 0 each PO . [facility] Non-Formulary Medication (Patient's Own Medication) 1 each TOP PRN PRN PRN Reason: Skin Irritation Ondansetron HCl (Zofran) 4 mg IV Q6HR PRN PRN Reason: Nausea And Vomiting Sumatriptan Succinate (Imitrex) 6 mg SUBCUT Q1H PRN PRN Reason: Migraine Headache Last Admin: 10/11/18 23:58 Dose: 6 mg Admin: 10/11/18 22:23 Dose: 6 mg Tamsulosin HCl (Flomax) 0.4 mg PO QNOON [facility] Discontinued Medications Hydromorphone HCl (Dilaudid) 2 mg IV NOW ONE Stop: 10/11/18 11:57 Last Admin: 10/11/18 12:25 Dose: 2 mg Hydromorphone HCl (Dilaudid) 2 mg IV Q4HR PRN PRN Reason: abdominal pain Last Admin: 10/11/18 17:27 Dose: 2 mg Hydromorphone HCl (Dilaudid) 1 mg IV Q2HR [facility] Last Admin: 10/11/18 23:19 Dose: Not Given Hydromorphone HCl (Dilaudid) 1 mg IV Q2HR PRN PRN Reason: Pain, Severe (7-10) Last Admin: 10/11/18 22:42 Dose: 1 mg Sodium Chloride (Normal Saline 0.9%) 1,000 mls @ 1,000 mls/hr IV BOLUS ONE Stop: 10/11/18 12:55 Last Infusion: 10/11/18 13:35 Dose: 0 mls/hr Admin: 10/11/18 12:25 Dose: 1,000 mls/hr Hydromorphone HCl 10 mg/ (Sodium Chloride) 50 mls @ 2.5 mls/hr IV CONT [facility]; Protocol Last Titration: 10/11/18 21:57 Dose: 0 mg/hr, 0 mls/hr Admin: 10/11/18 19:23 Dose: 0.5 mg/hr, 2.5 mls/hr Ondansetron HCl (Zofran) 4 mg IV NOW ONE Stop: 10/11/18 11:57 Last Admin: 10/11/18 12:25 Dose: 4 mg Ondansetron HCl (Zofran) 4 mg IV Q4HR PRN PRN Reason: Nausea And Vomiting Sumatriptan Succinate (Imitrex) 6 mg SUBCUT NOW PRN PRN Reason: Migraine Headache Vital Signs - 8 hr 10/11/18 23:57 10/12/18 03:00 Temperature 97.8 F 98.2 F Pulse Rate 76 76 Respiratory Rate 18 18 Blood Pressure 122/86 145/90 H Pulse Oximetry 98 99 <Karen Pradhan DO - Last Filed: 10/12/18 07:46> Orders Ordered: ED Orders 10/12/18 06:27 Complete Blood Count AUTO DIFF Routine Comprehensive Metabolic Panel Routine Lipase Routine Lipid Panel Routine Albuterol (Proventil) 1.25 mg INH Q4H PRN PRN Reason: Shortness Of Breath Albuterol/Ipratropium (Combivent Respimat) 2 puff INH BID [facility] Last Admin: 10/12/18 07:35 Dose: 2 puff Admin: 10/11/18 21:34 Dose: 2 puff Apixaban (Eliquis) 5 mg PO BID [facility] Last Admin: 10/11/18 22:06 Dose: 5 mg Bupropion HCl (Wellbutrin Xl) 300 mg PO QNOON [facility] Cyclobenzaprine HCl (Flexeril) 10 mg PO TID PRN PRN Reason: muscle spasm Duloxetine HCl (Cymbalta) 60 mg PO QNOON [facility] Hydromorphone HCl (Dilaudid) 1 mg IV Q2H PRN PRN Reason: Pain, Severe (7-10) Last Admin: 10/12/18 05:19 Dose: 1 mg Admin: 10/12/18 03:15 Dose: 1 mg Admin: 10/12/18 01:15 Dose: 1 mg Sodium Chloride (Normal Saline 0.9%) 1,000 mls @ 150 mls/hr IV CONT [facility] Last Admin: 10/12/18 01:18 Dose: 150 mls/hr Infusion: 10/12/18 01:18 Dose: 150 mls/hr Infusion: 10/11/18 22:26 Dose: 150 mls/hr Admin: 10/11/18 14:59 Dose: 75 mls/hr Lamotrigine (Lamictal) 200 mg PO BEDTIME [facility] Last Admin: 10/11/18 22:05 Dose: 200 mg Levothyroxine Sodium (Synthroid) 100 mcg PO 0600 [facility] Last Admin: 10/12/18 05:21 Dose: 100 mcg Liothyronine Sodium (Cytomel) 12.5 mcg PO DAILY [facility] Last Admin: 10/12/18 05:25 Dose: 12.5 mcg Lorazepam (Ativan) 1 mg IV Q4HR PRN PRN Reason: Anxiety Metoprolol Tartrate (Lopressor) 25 mg PO BID [facility] Last Admin: 10/11/18 22:06 Dose: 25 mg Montelukast Sodium (Singulair) 10 mg PO BEDTIME [facility] Last Admin: 10/11/18 22:05 Dose: 10 mg Naloxone HCl (Narcan) 0.2 mg IV Q2MIN PRN; Protocol PRN Reason: Opiate Reversal Fluticasone Furoate- Vilanterol [Breo Ellipta] 1 Puff) 1 puff INH RTDAILY [facility] Stored In Pharm 0 each PO . [facility] Non-Formulary Medication (Patient's Own Medication) 1 each TOP PRN PRN PRN Reason: Skin Irritation Ondansetron HCl (Zofran) 4 mg IV Q6HR PRN PRN Reason: Nausea And Vomiting Sumatriptan Succinate (Imitrex) 6 mg SUBCUT Q1H PRN PRN Reason: Migraine Headache Last Admin: 10/11/18 23:58 Dose: 6 mg Admin: 10/11/18 22:23 Dose: 6 mg Tamsulosin HCl (Flomax) 0.4 mg PO QNOON [facility] Discontinued Medications Hydromorphone HCl (Dilaudid) 2 mg IV NOW ONE Stop: 10/11/18 11:57 Last Admin: 10/11/18 12:25 Dose: 2 mg Hydromorphone HCl (Dilaudid) 2 mg IV Q4HR PRN PRN Reason: abdominal pain Last Admin: 10/11/18 17:27 Dose: 2 mg Hydromorphone HCl (Dilaudid) 1 mg IV Q2HR [facility] Last Admin: 10/11/18 23:19 Dose: Not Given Hydromorphone HCl (Dilaudid) 1 mg IV Q2HR PRN PRN Reason: Pain, Severe (7-10) Last Admin: 10/11/18 22:42 Dose: 1 mg Sodium Chloride (Normal Saline 0.9%) 1,000 mls @ 1,000 mls/hr IV BOLUS ONE Stop: 10/11/18 12:55 Last Infusion: 10/11/18 13:35 Dose: 0 mls/hr Admin: 10/11/18 12:25 Dose: 1,000 mls/hr Hydromorphone HCl 10 mg/ (Sodium Chloride) 50 mls @ 2.5 mls/hr IV CONT [facility]; Protocol Last Titration: 10/11/18 21:57 Dose: 0 mg/hr, 0 mls/hr Admin: 10/11/18 19:23 Dose: 0.5 mg/hr, 2.5 mls/hr Ondansetron HCl (Zofran) 4 mg IV NOW ONE Stop: 10/11/18 11:57 Last Admin: 10/11/18 12:25 Dose: 4 mg Ondansetron HCl (Zofran) 4 mg IV Q4HR PRN PRN Reason: Nausea And Vomiting Sumatriptan Succinate (Imitrex) 6 mg SUBCUT NOW PRN PRN Reason: Migraine Headache Vital Signs - 8 hr 10/11/18 23:57 10/12/18 03:00 Temperature 97.8 F 98.2 F Pulse Rate 76 76 Respiratory Rate 18 18 Blood Pressure 122/86 145/90 H Pulse Oximetry 98 99 MDM - Abdominal Pain <Nataly Dyson PA-C - Last Filed: 10/11/18 20:27> Lab Data Attestation: I reviewed the patient's lab results. Result diagrams: 10/12/18 06:27 10/12/18 06:27 Lab Results 10/11/18 10/11/18 10/11/18 Range/Units 12:08 12:08 12:08 WBC 5.5 (4.5-11.0) X10^3/uL RBC 5.08 (4.5-5.9) X10^6/uL Hgb 15.8 (13.5-17.5) g/dL Hct 47.3 (41-53) % MCV 93.0 (80-100) fL MCH 31.1 (26-34) PG MCHC 33.4 (30-36) % RDW 14.6 (11.6-14.8) % Plt Count 166 (150-400) X10^3/uL Neut % (Auto) 62.6 (50-75) % Lymph % (Auto) 24.0 L (25-40) % [place] % (Auto) 11.7 (3-14) % Eos % (Auto) 0.8 L (2-4) % Baso % (Auto) 0.9 (0-2) % Neut # (Auto) 3500 (3373-0509) /uL Lymph # (Auto) 1300 (9166-1156) /uL [place] # (Auto) 600 (0-900) /uL Eos # (Auto) 0 (0-450) /uL Baso # (Auto) 0 (0-100) /uL PT 12.2 (10.1-12.7) SECONDS INR 1.1 (0.9-1.3) APTT 41 H D (26.4-36.2) SECONDS Sodium 140 (137-145) mmol/L Potassium 4.5 (3.4-5.1) mmol/L Chloride 101 (98-107) mmol/L Carbon Dioxide 32 (22-32) mmol/L BUN 16 (9-20) mg/dL Creatinine 1.00 (0.66-1.25) mg/dL Estimated GFR > 60.0 (>60) mL/min BUN/Creatinine Ratio 16.0 (6-22) Glucose 102 (80-110) mg/dL Lactate (0.7-2.1) mmol/L Calcium 9.6 (8.4-10.2) mg/dL Total Bilirubin 0.5 (0.2-1.3) mg/dL AST 30 (17-59) IU/L ALT 45 (21-72) IU/L Alkaline Phosphatase 100 (38-126) U/L Total Protein 6.8 (6.3-8.2) g/dL Albumin 4.3 (3.5-5.0) g/dL Globulin 2.5 (1.7-4.1) g/dL Albumin/Globulin Ratio 1.7 (1.0-2.8) Triglycerides (35-150) mg/dL Cholesterol (140-199) mg/dL LDL Cholesterol, Calc (<100) mg/dL HDL Cholesterol (40-60) mg/dL Lipase 1055 H (23-300) U/L Urine Color Urine Appearance Urine pH (4.5-8.0) Ur Specific [place] (1.000-1.035) Urine Protein (Negative) Urine Glucose (UA) (Negative) g/dL Urine Ketones (NEGATIVE) Urine Occult Blood (Negative) Urine Nitrate (Negative) Urine Bilirubin (NEGATIVE) Urine Urobilinogen (0.2) E.U./dL Ur Leukocyte Esterase (NEGATIVE) Urine RBC (0-5/HPF) Urine WBC (0-5/HPF) Urine Bacteria (None) Ur Culture Indicated? Micro UA Comment 10/11/18 10/11/18 10/12/18 Range/Units 12:30 14:25 06:27 WBC 7.1 (4.5-11.0) X10^3/uL RBC 4.78 (4.5-5.9) X10^6/uL Hgb 14.9 (13.5-17.5) g/dL Hct 45.0 (41-53) % MCV 94.0 (80-100) fL MCH 31.1 (26-34) PG MCHC 33.0 (30-36) % RDW 14.7 (11.6-14.8) % Plt Count 158 (150-400) X10^3/uL Neut % (Auto) 69.3 (50-75) % Lymph % (Auto) 17.8 L (25-40) % [place] % (Auto) 11.7 (3-14) % Eos % (Auto) 0.7 L (2-4) % Baso % (Auto) 0.5 (0-2) % Neut # (Auto) 4900 (3635-7857) /uL Lymph # (Auto) 1300 (5775-0128) /uL [place] # (Auto) 800 (0-900) /uL Eos # (Auto) 100 (0-450) /uL Baso # (Auto) 0 (0-100) /uL PT (10.1-12.7) SECONDS INR (0.9-1.3) APTT (26.4-36.2) SECONDS Sodium (137-145) mmol/L Potassium (3.4-5.1) mmol/L Chloride (98-107) mmol/L Carbon Dioxide (22-32) mmol/L BUN (9-20) mg/dL Creatinine (0.66-1.25) mg/dL Estimated GFR (>60) mL/min BUN/Creatinine Ratio (6-22) Glucose (80-110) mg/dL Lactate 1.2 (0.7-2.1) mmol/L Calcium (8.4-10.2) mg/dL Total Bilirubin (0.2-1.3) mg/dL AST (17-59) IU/L ALT (21-72) IU/L Alkaline Phosphatase (38-126) U/L Total Protein (6.3-8.2) g/dL Albumin (3.5-5.0) g/dL Globulin (1.7-4.1) g/dL Albumin/Globulin Ratio (1.0-2.8) Triglycerides (35-150) mg/dL Cholesterol (140-199) mg/dL LDL Cholesterol, Calc (<100) mg/dL HDL Cholesterol (40-60) mg/dL Lipase (23-300) U/L Urine Color Yellow Urine Appearance Clear Urine pH 5.0 (4.5-8.0) Ur Specific [place] 1.020 (1.000-1.035) Urine Protein Negative (Negative) Urine Glucose (UA) Negative (Negative) g/dL Urine Ketones Negative (NEGATIVE) Urine Occult Blood Negative (Negative) Urine Nitrate Negative (Negative) Urine Bilirubin Negative (NEGATIVE) Urine Urobilinogen 0.2 (0.2) E.U./dL Ur Leukocyte Esterase Negative (NEGATIVE) Urine RBC None seen (0-5/HPF) Urine WBC None seen (0-5/HPF) Urine Bacteria None seen (None) Ur Culture Indicated? Cult not indicated Micro UA Comment Microscopic normal 10/12/18 Range/Units 06:27 WBC (4.5-11.0) X10^3/uL RBC (4.5-5.9) X10^6/uL Hgb (13.5-17.5) g/dL Hct (41-53) % MCV (80-100) fL MCH (26-34) PG MCHC (30-36) % RDW (11.6-14.8) % Plt Count (150-400) X10^3/uL Neut % (Auto) (50-75) % Lymph % (Auto) (25-40) % [place] % (Auto) (3-14) % Eos % (Auto) (2-4) % Baso % (Auto) (0-2) % Neut # (Auto) (3241-1300) /uL Lymph # (Auto) (4179-7594) /uL [place] # (Auto) (0-900) /uL Eos # (Auto) (0-450) /uL Baso # (Auto) (0-100) /uL PT (10.1-12.7) SECONDS INR (0.9-1.3) APTT (26.4-36.2) SECONDS Sodium 140 (137-145) mmol/L Potassium 4.7 (3.4-5.1) mmol/L Chloride 104 (98-107) mmol/L Carbon Dioxide 32 (22-32) mmol/L BUN 14 (9-20) mg/dL Creatinine 1.00 (0.66-1.25) mg/dL Estimated GFR > 60.0 (>60) mL/min BUN/Creatinine Ratio 14.0 (6-22) Glucose 77 L (80-110) mg/dL Lactate (0.7-2.1) mmol/L Calcium 8.7 (8.4-10.2) mg/dL Total Bilirubin 0.6 (0.2-1.3) mg/dL AST 24 (17-59) IU/L ALT 44 (21-72) IU/L Alkaline Phosphatase 91 (38-126) U/L Total Protein 6.2 L (6.3-8.2) g/dL Albumin 3.9 (3.5-5.0) g/dL Globulin 2.3 (1.7-4.1) g/dL Albumin/Globulin Ratio 1.7 (1.0-2.8) Triglycerides 89 (35-150) mg/dL Cholesterol 117 L (140-199) mg/dL LDL Cholesterol, Calc 58 (<100) mg/dL HDL Cholesterol 41 (40-60) mg/dL Lipase 71 D (23-300) U/L Urine Color Urine Appearance Urine pH (4.5-8.0) Ur Specific [place] (1.000-1.035) Urine Protein (Negative) Urine Glucose (UA) (Negative) g/dL Urine Ketones (NEGATIVE) Urine Occult Blood (Negative) Urine Nitrate (Negative) Urine Bilirubin (NEGATIVE) Urine Urobilinogen (0.2) E.U./dL Ur Leukocyte Esterase (NEGATIVE) Urine RBC (0-5/HPF) Urine WBC (0-5/HPF) Urine Bacteria (None) Ur Culture Indicated? Micro UA Comment Imaging Data Chest x-ray: Radiologist's impression: [address] [address] XRay Report Signed Patient: Mario Hemphill [facility]#: [id number] : 4Acct:[id number] Age/Sex: 63 / MDate of Service: 10/11/18 Loc: ED Accession Number: [id number] Procedure: XR chest 1V Ordering Provider: Nataly Dyson P.A-C PROCEDURE: XR CHEST 1V INDICATIONS: painful breathing/asthma TECHNIQUE: One view of the chest was acquired. COMPARISON: [facility], CR, XR CHEST 1V, 08/29/2018, 12:51. [facility], CR, XR CHEST 1V, 06/27/2018, 5:34. FINDINGS: Surgical changes and devices: Left humeral arthroplasty, left subclavian approach Port-A-Cath. Low cervical spine anterior fusion plate partially visualized. Lungs and pleura: Lungs are clear. No pleural effusions or pneumothorax. Mediastinum: Mediastinal contours appear normal. Heart size is normal. Bones and chest wall: No suspicious bony lesions. Overlying soft tissues ap pear unremarkable. IMPRESSION: Postsurgical changes as discussed, no acute disease of the chest, source of painful breathing is not seen. Dictated by: Yao Vargas M.D. on 10/11/2018 at 12:41 Approved by: Yao Vargas M.D. on 10/11/2018 at 12:41 US - abdomen: Radiologist's impression: [address] [address] Ultrasound Report Signed Patient: Mario Hemphill [facility]#: [id number] : 4Acct:[id number] Age/Sex: 63 / MDate of Service: 10/11/18 Loc: ED Accession Number: [id number] Procedure: US abdomen limited Ordering Provider: Nataly Dyson P.A-C PROCEDURE: US ABDOMEN LIMITED INDICATIONS: RUQ PAIN/PANCREATITIS TECHNIQUE: Real-time focused scanning was performed of the abdomen, with image documentation. COMPARISON: [facility], US, US ABDOMEN COMPLETE, 02/21/2018, 9:58. [facility], CT, CT ANGIO ABDOMEN/FEMORAL, 03/14/2018, 7:18. [facility], US, US ABDOMEN LIMITED, 10/09/2018, 13:06. FINDINGS: Visualized liver demonstrates normal echotexture. Gallbladder is normal. No gallstones, gallbladder wall thickening, pericholecystic fluid or sonographic Alvarado's sign. Visualized liver demonstrates normal echotexture. Common bile duct is dilated measuring 9.8 mm in diameter. The pancreas is not well seen. There is a 4.3 cm simple appearing cyst in the upper pole the right kidney. IMPRESSION: 1. There is common bile duct dilation. Please correlate with serum bilirubin for biliary obstruction. 2. No gallstones or ultrasound evidence for acute cholecystitis. 3. A 4.3 cm simple cyst in the superior pole the right kidney. 4. Pancreas is not well-seen. Dictated by: Savanna Dominguez M.D. on 10/11/2018 at 13:11 Approved by: Savanna Dominguez M.D. on 10/11/2018 at 13:16 <Karen Pradhan DO - Last Filed: 10/12/18 07:46> Lab Data Lab Results 10/11/18 10/11/18 10/11/18 Range/Units 12:08 12:08 12:08 WBC 5.5 (4.5-11.0) X10^3/uL RBC 5.08 (4.5-5.9) X10^6/uL Hgb 15.8 (13.5-17.5) g/dL Hct 47.3 (41-53) % MCV 93.0 (80-100) fL MCH 31.1 (26-34) PG MCHC 33.4 (30-36) % RDW 14.6 (11.6-14.8) % Plt Count 166 (150-400) X10^3/uL Neut % (Auto) 62.6 (50-75) % Lymph % (Auto) 24.0 L (25-40) % [place] % (Auto) 11.7 (3-14) % Eos % (Auto) 0.8 L (2-4) % Baso % (Auto) 0.9 (0-2) % Neut # (Auto) 3500 (6279-2112) /uL Lymph # (Auto) 1300 (7018-3561) /uL [place] # (Auto) 600 (0-900) /uL Eos # (Auto) 0 (0-450) /uL Baso # (Auto) 0 (0-100) /uL PT 12.2 (10.1-12.7) SECONDS INR 1.1 (0.9-1.3) APTT 41 H D (26.4-36.2) SECONDS Sodium 140 (137-145) mmol/L Potassium 4.5 (3.4-5.1) mmol/L Chloride 101 (98-107) mmol/L Carbon Dioxide 32 (22-32) mmol/L BUN 16 (9-20) mg/dL Creatinine 1.00 (0.66-1.25) mg/dL Estimated GFR > 60.0 (>60) mL/min BUN/Creatinine Ratio 16.0 (6-22) Glucose 102 (80-110) mg/dL Lactate (0.7-2.1) mmol/L Calcium 9.6 (8.4-10.2) mg/dL Total Bilirubin 0.5 (0.2-1.3) mg/dL AST 30 (17-59) IU/L ALT 45 (21-72) IU/L Alkaline Phosphatase 100 (38-126) U/L Total Protein 6.8 (6.3-8.2) g/dL Albumin 4.3 (3.5-5.0) g/dL Globulin 2.5 (1.7-4.1) g/dL Albumin/Globulin Ratio 1.7 (1.0-2.8) Triglycerides (35-150) mg/dL Cholesterol (140-199) mg/dL LDL Cholesterol, Calc (<100) mg/dL HDL Cholesterol (40-60) mg/dL Lipase 1055 H (23-300) U/L Urine Color Urine Appearance Urine pH (4.5-8.0) Ur Specific [place] (1.000-1.035) Urine Protein (Negative) Urine Glucose (UA) (Negative) g/dL Urine Ketones (NEGATIVE) Urine Occult Blood (Negative) Urine Nitrate (Negative) Urine Bilirubin (NEGATIVE) Urine Urobilinogen (0.2) E.U./dL Ur Leukocyte Esterase (NEGATIVE) Urine RBC (0-5/HPF) Urine WBC (0-5/HPF) Urine Bacteria (None) Ur Culture Indicated? Micro UA Comment 10/11/18 10/11/18 10/12/18 Range/Units 12:30 14:25 06:27 WBC 7.1 (4.5-11.0) X10^3/uL RBC 4.78 (4.5-5.9) X10^6/uL Hgb 14.9 (13.5-17.5) g/dL Hct 45.0 (41-53) % MCV 94.0 (80-100) fL MCH 31.1 (26-34) PG MCHC 33.0 (30-36) % RDW 14.7 (11.6-14.8) % Plt Count 158 (150-400) X10^3/uL Neut % (Auto) 69.3 (50-75) % Lymph % (Auto) 17.8 L (25-40) % [place] % (Auto) 11.7 (3-14) % Eos % (Auto) 0.7 L (2-4) % Baso % (Auto) 0.5 (0-2) % Neut # (Auto) 4900 (3181-0390) /uL Lymph # (Auto) 1300 (1267-0552) /uL [place] # (Auto) 800 (0-900) /uL Eos # (Auto) 100 (0-450) /uL Baso # (Auto) 0 (0-100) /uL PT (10.1-12.7) SECONDS INR (0.9-1.3) APTT (26.4-36.2) SECONDS Sodium (137-145) mmol/L Potassium (3.4-5.1) mmol/L Chloride (98-107) mmol/L Carbon Dioxide (22-32) mmol/L BUN (9-20) mg/dL Creatinine (0.66-1.25) mg/dL Estimated GFR (>60) mL/min BUN/Creatinine Ratio (6-22) Glucose (80-110) mg/dL Lactate 1.2 (0.7-2.1) mmol/L Calcium (8.4-10.2) mg/dL Total Bilirubin (0.2-1.3) mg/dL AST (17-59) IU/L ALT (21-72) IU/L Alkaline Phosphatase (38-126) U/L Total Protein (6.3-8.2) g/dL Albumin (3.5-5.0) g/dL Globulin (1.7-4.1) g/dL Albumin/Globulin Ratio (1.0-2.8) Triglycerides (35-150) mg/dL Cholesterol (140-199) mg/dL LDL Cholesterol, Calc (<100) mg/dL HDL Cholesterol (40-60) mg/dL Lipase (23-300) U/L Urine Color Yellow Urine Appearance Clear Urine pH 5.0 (4.5-8.0) Ur Specific [place] 1.020 (1.000-1.035) Urine Protein Negative (Negative) Urine Glucose (UA) Negative (Negative) g/dL Urine Ketones Negative (NEGATIVE) Urine Occult Blood Negative (Negative) Urine Nitrate Negative (Negative) Urine Bilirubin Negative (NEGATIVE) Urine Urobilinogen 0.2 (0.2) E.U./dL Ur Leukocyte Esterase Negative (NEGATIVE) Urine RBC None seen (0-5/HPF) Urine WBC None seen (0-5/HPF) Urine Bacteria None seen (None) Ur Culture Indicated? Cult not indicated Micro UA Comment Microscopic normal 10/12/18 Range/Units 06:27 WBC (4.5-11.0) X10^3/uL RBC (4.5-5.9) X10^6/uL Hgb (13.5-17.5) g/dL Hct (41-53) % MCV (80-100) fL MCH (26-34) PG MCHC (30-36) % RDW (11.6-14.8) % Plt Count (150-400) X10^3/uL Neut % (Auto) (50-75) % Lymph % (Auto) (25-40) % [place] % (Auto) (3-14) % Eos % (Auto) (2-4) % Baso % (Auto) (0-2) % Neut # (Auto) (8498-4296) /uL Lymph # (Auto) (4896-1195) /uL [place] # (Auto) (0-900) /uL Eos # (Auto) (0-450) /uL Baso # (Auto) (0-100) /uL PT (10.1-12.7) SECONDS INR (0.9-1.3) APTT (26.4-36.2) SECONDS Sodium 140 (137-145) mmol/L Potassium 4.7 (3.4-5.1) mmol/L Chloride 104 (98-107) mmol/L Carbon Dioxide 32 (22-32) mmol/L BUN 14 (9-20) mg/dL Creatinine 1.00 (0.66-1.25) mg/dL Estimated GFR > 60.0 (>60) mL/min BUN/Creatinine Ratio 14.0 (6-22) Glucose 77 L (80-110) mg/dL Lactate (0.7-2.1) mmol/L Calcium 8.7 (8.4-10.2) mg/dL Total Bilirubin 0.6 (0.2-1.3) mg/dL AST 24 (17-59) IU/L ALT 44 (21-72) IU/L Alkaline Phosphatase 91 (38-126) U/L Total Protein 6.2 L (6.3-8.2) g/dL Albumin 3.9 (3.5-5.0) g/dL Globulin 2.3 (1.7-4.1) g/dL Albumin/Globulin Ratio 1.7 (1.0-2.8) Triglycerides 89 (35-150) mg/dL Cholesterol 117 L (140-199) mg/dL LDL Cholesterol, Calc 58 (<100) mg/dL HDL Cholesterol 41 (40-60) mg/dL Lipase 71 D (23-300) U/L Urine Color Urine Appearance Urine pH (4.5-8.0) Ur Specific [place] (1.000-1.035) Urine Protein (Negative) Urine Glucose (UA) (Negative) g/dL Urine Ketones (NEGATIVE) Urine Occult Blood (Negative) Urine Nitrate (Negative) Urine Bilirubin (NEGATIVE) Urine Urobilinogen (0.2) E.U./dL Ur Leukocyte Esterase (NEGATIVE) Urine RBC (0-5/HPF) Urine WBC (0-5/HPF) Urine Bacteria (None) Ur Culture Indicated? Micro UA Comment Discharge Plan Departure Patient Disposition: Admitted as Observation Clinical Impression: Acute pancreatitis Qualifiers: Pancreatitis type: idiopathic Acute pancreatitis complication: no infection or necrosis Qualified Code(s): K85.00 - Idiopathic acute pancreatitis without necrosis or infection Discharge Date/Time: 10/11/18 13:55 Interventions: ED Discharge Assessment Last Done: 10/11/18 13:55 Admit Date/Time: 10/11/18 13:35 Admit Provider: Gloria Colin <Karen Pradhan DO - Last Filed: 10/12/18 07:46> Cosign ED Attending Freda Attestation: I was immediately available in the department for consultation. Documentation has been reviewed. I agree with assessment and plan.
[2018-10-11] MEDS: HYDROMORPHONE 1 MG INJ 2 MG IV (12:25)
[2018-10-11] MEDS: ONDANSETRON 4 MG/2 ML INJ IV (12:25)
[2018-10-11] MEDS: SODIUM CHLORIDE 0.9% 1,000 ML 1000 ML IV (12:25)
[2018-10-11 12:27] LABS: Add Manual Diff / Slide Review NO; Basophils Absolute Auto 0 /uL (0-100); Basophils Percent Auto 0.9 % (0-2); Eosinophils Absolute Auto 0 /uL (0-450); Eosinophils Percent Auto 0.8 % (2-4); Hematocrit 47.3 % (41-53); Hemoglobin 15.8 g/dL (13.5-17.5); Lymphocytes Absolute Auto 1300 /uL (1100-4500); Mean Corpuscular HGB Conc 33.4 % (30-36); Mean Corpuscular Hemoglobin 31.1 PG (26-34); Monocytes Absolute Auto 600 /uL (0-900); Monocytes Percent Auto 11.7 % (3-14); Neutrophils Absolute Auto 3500 /uL (1500-7000); Neutrophils Percent Auto 62.6 % (50-75); Platelet Count 166 X10^3/uL (150-400); Red Blood Cell Count 5.08 X10^6/uL (4.5-5.9); Red Cell Distribution Width 14.6 % (11.6-14.8); White Blood Cell Count 5.5 X10^3/uL (4.5-11.0)
[2018-10-11 12:33] LABS: INR 1.1 (0.9-1.3); Prothrombin Time 12.2 SECONDS (10.1-12.7)
[2018-10-11 12:36] LABS: PTT Partial Thromboplastin Tim 41 SECONDS (26.4-36.2)
[2018-10-11 12:38] LABS: Alanine Aminotransferase 45 IU/L (21-72); Albumin 4.3 g/dL (3.5-5.0); Albumin Globulin Ratio 1.7 (1.0-2.8); Alkaline Phosphatase 100 U/L (38-126); Aspartate Aminotransferase 30 IU/L (17-59); Bilirubin Total 0.5 mg/dL (0.2-1.3); Blood Urea Nitrogen 16 mg/dL (9-20); Calcium 9.6 mg/dL (8.4-10.2); Carbon Dioxide 32 mmol/L (22-32); Chloride 101 mmol/L (98-107); Estimated Glomerular Filt Rate > 60.0 mL/min (>60); Globulin 2.5 g/dL (1.7-4.1); Glucose 102 mg/dL (80-110); HEMOLYSIS < 15 (0-50); Lipase 1055 U/L (23-300); Potassium 4.5 mmol/L (3.4-5.1); Sodium 140 mmol/L (137-145); Total Protein 6.8 g/dL (6.3-8.2)
[2018-10-11 12:47] LABS: Lactate (Lactic Acid) 1.2 mmol/L (0.7-2.1)
--- NOTE | 2018-10-11 13:11 | PC.NURSE ---
pt notes that sensation of pain has not changed but that he finds it far more tolerable under the influence of the dilaudid, pt is resting comfortably at this time
[2018-10-11] MEDS: SODIUM CHLORIDE 0.9% 1,000 ML 75 ML IV (14:59)
[2018-10-11 17:03] LABS: Bacteria Urine None Seen; RBC Urine None Seen (0-5/HPF); WBC Urine None Seen (0-5/HPF)
[2018-10-11 17:04] LABS: Appearance Urine UA CLEAR; Bilirubin Urine UA NEGATIVE (NEGATIVE); Color Urine UA YELLOW; Glucose Urine UA NEGATIVE (Negative); Ketones Urine UA NEGATIVE (NEGATIVE); Leukocyte Esterase Urine UA NEGATIVE (NEGATIVE); Nitrite Urine UA NEGATIVE (Negative); Occult Blood Urine UA NEGATIVE (Negative); Protein Urine UA NEGATIVE (Negative); Urobilinogen Urine UA 0.2 E.U./dL (0.2)
[2018-10-11 17:22] LABS: Culture Indicated Urine Cult Not Indicated; Urine Comments Microscopic Normal
[2018-10-11] MEDS: HYDROMORPHONE 2 MG INJ IV (17:27)
[2018-10-11] MEDS: SODIUM CHLORIDE 0.9% IV (19:23)
[2018-10-11] MEDS: HYDROMORPHONE IV (19:23)
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
--- NOTE | 2018-10-11 20:03 | PC.NURSE ---
dilaudid verification 1929 Dilaudid drip verified as infusing at 2.5ml/hr concurrently with NS @ 75ml/hr.
[2018-10-11] MEDS: ALBUTEROL/IPRATROPIUM MDI 2 PUFF INH (21:34)
[2018-10-11] MEDS: MONTELUKAST 10 MG TABLET PO (22:05)
[2018-10-11] MEDS: lamoTRIgine 100 MG TABLET 200 MG PO (22:05)
[2018-10-11] MEDS: APIXABAN 5 MG TABLET PO (22:06)
[2018-10-11] MEDS: METOPROLOL IR 25 MG TABLET PO (22:06)
[2018-10-11] MEDS: SUMAtriptan 6 MG/0.5 ML VIAL SUBCUT ×2 (22:23→23:58)
[2018-10-11] MEDS: HYDROMORPHONE 2 MG INJ 1 MG IV (22:42)
--- NOTE | 2018-10-11 22:50 | PC.NURSE ---
A&OX3. 97% 2L. desat 88-91% on RA. pt rates RUQ pain 5-8/10. pt's pain goal 2-3/10. started pt on dilaudid drip 0.5mg/hr. cont pulse ox on. around 2129 while pt asleep, pt's RR 8/min and O2 sat 88% 2L. pt woke up via verbal stimulation and rated pain 2/10, O2 97% 2L while awake. Notified Dr. Colin about pt O2 sat and RR. Dilaudid drip dc'd. Per MD order, pt ok to have sips of water with meds and ice chips for moisture. call light in reach.
[2018-10-12] VITALS (11 sets, daily range): BP systolic 124–146; BP diastolic 61–90; PULSE 76–95; RESP 14–18; TEMP 36.4–36.8; O2SAT 92–100
--- NOTE | 2018-10-12 00:20 | PC.NURSE ---
Addendum entered by Josephine Shepard R.N. 10/12/18 05:28: Medicated with IV Dilaudid for complaint of 7/10 RUQ/headache pain and ice packs provided for additional comfort. Addendum entered by Josephine Shepard R.N. 10/12/18 03:50: 0315 Patient received IV Dilaudid for 8/10 RUQ pain and 9/10 headache (already received max 12mg dose of Sumatriptan). Up to bathroom and attempted to void but unable to urinate. 0325 Patient stood at bedside and again attempted to void but unable to do so. Bladder scan showing 673cc in bladder. 0333 Dr Colin returned page and order received to place indwelling catheter 0340 Indwelling catheter placed with clear, light jasvir urine returning. Tolerated procedure well. Addendum entered by Josephine Shepard R.N. 10/12/18 01:19: Complains of 8/10 RUQ sharp, intermittent pain; medicated with IV Dilaudid Addendum entered by Josephine Shepard R.N. 10/12/18 00:25: Per AGRICULTURAL RESEARCH DIRECTOR, patient is unsteady when up but refusing to use assistive device. Original Note: Patient is alert and oriented. Breath sounds CTA with sat of 98% while asleep on 2L/min oxygen per NC (per home regimen); when awake sat is 100%. Remains on continuous pulse oximetry. HRR. Complains of slight nausea but declines antiemetic. Complains of migraine headache; medicated with Sumatriptan. Tender in RUQ of abdomen and rates pain severity as 4/10; due for next Dilaudid at 0042. BT hypoactive. Denies dysuria, frequency or urgency and has been using urinal in bathroom. Turns self in bed. Up to bathroom with SBA. [place] and states he has bilateral hearing aids but does not have them with at this time. Reports falling within past 3 months so fall risk score is high and bed alarm is activated. Remains NPO except for ice chip/sips and meds.
[2018-10-12] MEDS: HYDROMORPHONE 1 MG INJ IV ×11 (01:15→23:16)
[2018-10-12] MEDS: SODIUM CHLORIDE 0.9% 1,000 ML 150 ML IV ×2 (01:18→09:03)
[2018-10-12] MEDS: LEVOTHYROXINE 100 MCG TABLET PO (05:21)
[2018-10-12] MEDS: LIOTHYRONINE 25 MCG TABLET 12.5 MCG PO (05:25)
[2018-10-12 06:50] LABS: Add Manual Diff / Slide Review NO; Basophils Absolute Auto 0 /uL (0-100); Basophils Percent Auto 0.5 % (0-2); Eosinophils Absolute Auto 100 /uL (0-450); Eosinophils Percent Auto 0.7 % (2-4); Hemoglobin 14.9 g/dL (13.5-17.5); Lymphocytes Absolute Auto 1300 /uL (1100-4500); Lymphocytes Percent Auto 17.8 % (25-40); Mean Corpuscular Hemoglobin 31.1 PG (26-34); Monocytes Absolute Auto 800 /uL (0-900); Monocytes Percent Auto 11.7 % (3-14); Neutrophils Absolute Auto 4900 /uL (1500-7000); Neutrophils Percent Auto 69.3 % (50-75); Platelet Count 158 X10^3/uL (150-400); Red Blood Cell Count 4.78 X10^6/uL (4.5-5.9); Red Cell Distribution Width 14.7 % (11.6-14.8); White Blood Cell Count 7.1 X10^3/uL (4.5-11.0)
[2018-10-12 07:05] LABS: HEMOLYSIS < 15 (0-50); Potassium 4.7 mmol/L (3.4-5.1)
[2018-10-12 07:06] LABS: Alanine Aminotransferase 44 IU/L (21-72); Albumin 3.9 g/dL (3.5-5.0); Albumin Globulin Ratio 1.7 (1.0-2.8); Alkaline Phosphatase 91 U/L (38-126); Aspartate Aminotransferase 24 IU/L (17-59); Bilirubin Total 0.6 mg/dL (0.2-1.3); Blood Urea Nitrogen 14 mg/dL (9-20); Calcium 8.7 mg/dL (8.4-10.2); Carbon Dioxide 32 mmol/L (22-32); Chloride 104 mmol/L (98-107); Cholesterol 117 mg/dL (140-199); Estimated Glomerular Filt Rate > 60.0 mL/min (>60); Globulin 2.3 g/dL (1.7-4.1); Glucose 77 mg/dL (80-110); HDL Cholesterol 41 mg/dL (40-60); LDL Cholesterol Calculated 58 mg/dL (<100); Lipase 71 U/L (23-300); Sodium 140 mmol/L (137-145); Total Protein 6.2 g/dL (6.3-8.2); Triglycerides 89 mg/dL (35-150)
[2018-10-12] MEDS: ALBUTEROL/IPRATROPIUM MDI 2 PUFF INH ×2 (07:35→17:55)
[2018-10-12] MEDS: METOPROLOL IR 25 MG TABLET PO ×2 (08:58→21:20)
[2018-10-12] MEDS: APIXABAN 5 MG TABLET PO ×2 (08:58→21:21)
[2018-10-12] MEDS: buPROPion XL 150 MG TAB 300 MG PO (09:00)
[2018-10-12] MEDS: DULOXETINE 30 MG CAPSULE 60 MG PO (09:00)
[2018-10-12] MEDS: TAMSULOSIN 0.4 MG CAPSULE PO (09:00)
--- NOTE | 2018-10-12 09:30 | DI.RAD.S_ITS ---
PROCEDURE: XR ACUTE ABDOMEN SERIES INDICATIONS: sbo vs ileus TECHNIQUE: One view chest and two views of the abdomen were acquired. COMPARISON: None. FINDINGS: Surgical changes and devices: Patient is status post left shoulder arthroplasty and fusion of lower cervical spine. Left chest wall Port-A-Cath tip is in SVC.. Chest: Emphysematous changes in bilateral lung ortiz are seen. No focal infiltrate. Heart size is normal. No pleural effusions. No pneumoperitoneum. Abdomen: Bowel gas pattern is nonobstructive. Mild fecal stasis in the colon is seen. No gross peritoneal free air. No suspicious calcifications. Visualized solid organ contours appear normal. Bones: No suspicious bony lesions. IMPRESSION: No acute cardiopulmonary pathology. No evidence of bowel obstruction no gross free air. Mild constipation. Dictated by: Nicholas Sandoval M.D. on 10/12/2018 at 10:49 Approved by: Nicholas Sandoval M.D. on 10/12/2018 at 10:54
--- NOTE | 2018-10-12 09:51 | P.PN_ITS ---
Subjective Date Patient Seen: 10/12/18 Time Patient Seen: 09:46 Interval history: Pancreatitis. Somewhat better today. Decreased right upper quadrant. Decreased generalized abdominal pain. Slightly nauseated with no vomiting. Has not had a bowel movement since she has been here. Has attempted several times but been unsuccessful. And not passing gas. Apparently also having urinary retention last night requiring indwelling catheter still in place. Has developed recurrent migraine headaches here. Imitrex injections have not helped much he will bring his migraine medications from home which includes Maxalt and nasal spray. Patient hoping to be discharged within the next couple days because he has stick is to see Rolando Muñoz on Tuesday night in [facility]. Exam Vital Signs (past 8 hours): - 10/12/18 03:00 10/12/18 07:36 10/12/18 08:00 Temperature 98.2 F 98.1 F Pulse Rate 76 79 78 Respiratory Rate 18 14 18 Blood Pressure 145/90 H 139/89 Pulse Oximetry 99 99 100 Fraction of Inspired Oxygen 28 Oxygen Delivery Method Nasal Cannula Oxygen Flow Rate 2 Narrative Exam Narrative: Patient is sitting hospital bed appear in no distress having just returned from the bathroom unsuccessful bowel movement. He appears is in minimal distress. Lungs are clear heart regular rhythm no murmur gallop. Abdominal exam listed for about 30 seconds no bowel sounds heard. He has generalized is discomfort to the abdomen but more intense right upper quadrant. No guarding plus-minus rebound Objective Labs Result Diagrams: 10/12/18 06:27 10/12/18 06:27 Labs: Laboratory Results - last 24 hr 10/11/18 10/11/18 10/11/18 12:08 12:08 12:08 WBC 5.5 RBC 5.08 Hgb 15.8 Hct 47.3 MCV 93.0 MCH 31.1 MCHC 33.4 RDW 14.6 Plt Count 166 Neut % (Auto) 62.6 Lymph % (Auto) 24.0 L [place] % (Auto) 11.7 Eos % (Auto) 0.8 L Baso % (Auto) 0.9 Neut # (Auto) 3500 Lymph # (Auto) 1300 [place] # (Auto) 600 Eos # (Auto) 0 Baso # (Auto) 0 PT 12.2 INR 1.1 APTT 41 H D Sodium 140 Potassium 4.5 Chloride 101 Carbon Dioxide 32 BUN 16 Creatinine 1.00 Estimated GFR > 60.0 BUN/Creatinine Ratio 16.0 Glucose 102 Lactate Calcium 9.6 Total Bilirubin 0.5 AST 30 ALT 45 Alkaline Phosphatase 100 Total Protein 6.8 Albumin 4.3 Globulin 2.5 Albumin/Globulin Ratio 1.7 Triglycerides Cholesterol LDL Cholesterol, Calc HDL Cholesterol Lipase 1055 H Urine Color Urine Appearance Urine pH Ur Specific [place] Urine Protein Urine Glucose (UA) Urine Ketones Urine Occult Blood Urine Nitrate Urine Bilirubin Urine Urobilinogen Ur Leukocyte Esterase Urine RBC Urine WBC Urine Bacteria Ur Culture Indicated? Micro UA Comment 10/11/18 10/11/18 10/12/18 12:30 14:25 06:27 WBC 7.1 RBC 4.78 Hgb 14.9 Hct 45.0 MCV 94.0 MCH 31.1 MCHC 33.0 RDW 14.7 Plt Count 158 Neut % (Auto) 69.3 Lymph % (Auto) 17.8 L [place] % (Auto) 11.7 Eos % (Auto) 0.7 L Baso % (Auto) 0.5 Neut # (Auto) 4900 Lymph # (Auto) 1300 [place] # (Auto) 800 Eos # (Auto) 100 Baso # (Auto) 0 PT INR APTT Sodium Potassium Chloride Carbon Dioxide BUN Creatinine Estimated GFR BUN/Creatinine Ratio Glucose Lactate 1.2 Calcium Total Bilirubin AST ALT Alkaline Phosphatase Total Protein Albumin Globulin Albumin/Globulin Ratio Triglycerides Cholesterol LDL Cholesterol, Calc HDL Cholesterol Lipase Urine Color Yellow Urine Appearance Clear Urine pH 5.0 Ur Specific [place] 1.020 Urine Protein Negative Urine Glucose (UA) Negative Urine Ketones Negative Urine Occult Blood Negative Urine Nitrate Negative Urine Bilirubin Negative Urine Urobilinogen 0.2 Ur Leukocyte Esterase Negative Urine RBC None seen Urine WBC None seen Urine Bacteria None seen Ur Culture Indicated? Cult not indicated Micro UA Comment Microscopic normal 10/12/18 06:27 WBC RBC Hgb Hct MCV MCH MCHC RDW Plt Count Neut % (Auto) Lymph % (Auto) [place] % (Auto) Eos % (Auto) Baso % (Auto) Neut # (Auto) Lymph # (Auto) [place] # (Auto) Eos # (Auto) Baso # (Auto) PT INR APTT Sodium 140 Potassium 4.7 Chloride 104 Carbon Dioxide 32 BUN 14 Creatinine 1.00 Estimated GFR > 60.0 BUN/Creatinine Ratio 14.0 Glucose 77 L Lactate Calcium 8.7 Total Bilirubin 0.6 AST 24 ALT 44 Alkaline Phosphatase 91 Total Protein 6.2 L Albumin 3.9 Globulin 2.3 Albumin/Globulin Ratio 1.7 Triglycerides 89 Cholesterol 117 L LDL Cholesterol, Calc 58 HDL Cholesterol 41 Lipase 71 D Urine Color Urine Appearance Urine pH Ur Specific [place] Urine Protein Urine Glucose (UA) Urine Ketones Urine Occult Blood Urine Nitrate Urine Bilirubin Urine Urobilinogen Ur Leukocyte Esterase Urine RBC Urine WBC Urine Bacteria Ur Culture Indicated? Micro UA Comment Labs from today is reviewed. Remarkably lipase down to 71. White blood cell count normal. Electrolytes normal. Assessment & Plan Assessment & Plan narrative: 1. Acute pancreatitis laboratory horn has improved significantly. Patient still has a fair amount of symptoms right upper quadrant pain. As stated he has a dilated common bile duct. Perhaps patient had a retained stone that has since passed. Manifested by lipase of over 1000 going down to 71 in 24 hours period may well still has some residual bile duct inflammation causing his right upper quadrant pain and tenderness as well as the nausea. Bilirubin has remained normal as have liver function tests. Patient still somewhat symptomatic will attempt to get MRCP today getting more detail about the common bile duct. 2. Presumably has developed an ileus from his pancreatitis. Patient has a history of a Cris-en-Y surgery and concern being a partial bowel obstruction. Abdominal x-rays ordered. 3. Migraine headaches problematic he will bring his medications from home will attempt to give sublingual Maxalt or nasal spray as patient is NPO has required fair amount of Imitrex type drugs in the past.
--- NOTE | 2018-10-12 10:33 | DI.MRI.S_ITS ---
PROCEDURE: MR ABDOMEN WO CON INDICATIONS: ?retained CBD stone TECHNIQUE: Coronal HASTE through the abdomen, axial 2-D FLASH in- and [id number], and breath-hold T2 FSE with fat saturation through the biliary system and pancreas. Oblique coronal and axial thin-slice HASTE, radial thick-slab HASTE centered on the extrahepatic bile ducts. Intravenous secretin: Not requested. COMPARISON: [facility], MR, ABDOMEN WITHOUT CONTRAST, 08/04/2015, 9:31. FINDINGS: Image quality: Excellent. Pancreas and biliary system: There is no significant intrahepatic biliary ductal dilatation. Prominence of common bile that is seen measures up to 1 cm in diameter proximally and 6 mm in diameter distally. There is suggestion of filling defect measures 2-3 mm in size in most distal common bile duct concerning for distal common bile but stone. Very mild prominence of pancreatic bed near the pancreatic head region is seen measures 2-3 mm in diameter. Pancreas is normal in morphology, without adjacent soft tissue edema. Gallbladder is well-distended. No gallstone is seen.. Other solid organs: Liver is normal in size. Spleen is normal in size. No adrenal nodules. Both kidneys are normal in size, without hydronephrosis. 4.2 cm upper pole right renal cyst is seen. Nodes and vessels: No retroperitoneal or mesenteric adenopathy by size criteria. Aorta and inferior vena cava are normal in size. Bowel and peritoneum: Unenhanced bowel loops are normal in caliber. No free fluid. Lung bases: No basal pleural effusions. Heart size is normal. Bones and soft tissues: No ventral hernias. Bone marrow is of normal overall signal. IMPRESSION: 1. Prominent common bile duct measures up to 1 cm in diameter proximally with suggestion of small filling defect involving most distal common bile duct and is concerning for distal common bile but stone. 2. Very mild prominence of pancreatic duct measures 2-3 mm in diameter. 3. No gallstone. No gallbladder wall thickening or pericholecystic fluid. 4. Right renal cyst as above. No hydronephrosis. Dictated by: Nicholas Sandoval M.D. on 10/12/2018 at 10:19 Approved by: Nicholas Sandoval M.D. on 10/12/2018 at 10:24
[2018-10-12] MEDS: DEXTROSE 5%-0.9% NS 1,000 ML 150 ML IV ×2 (12:26→18:59)
[2018-10-12] MEDS: SUMAtriptan 6 MG/0.5 ML VIAL SUBCUT (14:46)
--- NOTE | 2018-10-12 15:26 | CM.DANOTE ---
Patient is a 63 year old male who was admitted on 10/11/18 for Abdominal Pain. Pt has [facility] and [employer] for insurance and his PCP is Dr. Armstrong. EMR was reviewed. Per MD, pt with new pancreatitis, COPD, chronic low back pain, and complex medical hx. Pt also established with Dr. Murray at [facility] for depression and anxiety. Per RN, pt currently NPO and watching blood sugars and pt completed MRI and xray today. Patient resides at home with his in [place] and pt is mostly independent with ADL's. Pt independent with mobility in his room and needs unclear at this time. Plan: SW to follow closely to confirm if pt will be safe for d/c back home with his spouse when medically stable. SW to follow for advancing pt's diet and confirming if pt is still open with [facility] for home CPAP. GLENDY Aj Discharge Planning/Care Management CM Discharge Assessment Start: 10/12/18 15:25 Freq: Status: Active Protocol: Document 10/12/18 15:25 BF (Rec: 10/12/18 15:26 BF [id number]) Discharge Planning Assessment Assigned Autographer GLENDY Stephens Advance Directives? Yes History Provided By Patient Medical Record Has Patient been admitted in last 30 No days? Prior Living Arrangements House Household Members spouse Type of transporation used prior to Drives own vehicle admit Independent with ADL's Yes Is patient alert and oriented? Yes Caregiver for Another No Comment D/C needs unclear at this time Barriers to Discharge No Discharge Plan Home Transportation Arrangement Spouse bedside and likely can provide transport at d/c. Whiteboard Updated in Patient Room with Yes name and ext. # of Autographer Review Status In Process Please Provide Date Initial DC 10/12/18 Assessment Was Performed Next Review Type Continued Stay Review
[2018-10-12] MEDS: FLUTICASONE FUROATE VILANTEROL 1 EACH INH ×3 (17:55→18:00)
[2018-10-12] MEDS: SUMAtriptan 25 MG TABLET 100 MG PO (19:21)
[2018-10-12] MEDS: lamoTRIgine 100 MG TABLET 200 MG PO (21:19)
[2018-10-12] MEDS: MONTELUKAST 10 MG TABLET PO (22:08)
[2018-10-12] MEDS: ONDANSETRON 4 MG/2 ML INJ IV (23:17)
[2018-10-13] VITALS (15 sets, daily range): BP systolic 79–150; BP diastolic 50–86; PULSE 64–121; RESP 16–20; TEMP 36.4–38.1; O2SAT 82–96
[2018-10-13] MEDS: HYDROMORPHONE 1 MG INJ IV ×9 (01:31→21:47)
[2018-10-13] MEDS: DEXTROSE 5%-0.9% NS 1,000 ML 150 ML IV (01:42)
[2018-10-13] MEDS: SUMAtriptan 25 MG TABLET 100 MG PO ×3 (03:44→19:08)
[2018-10-13] MEDS: ALBUTEROL/IPRATROPIUM MDI 2 PUFF INH ×2 (06:27→17:58)
[2018-10-13] MEDS: LEVOTHYROXINE 100 MCG TABLET PO (06:36)
[2018-10-13] MEDS: APIXABAN 5 MG TABLET PO ×2 (08:59→21:38)
[2018-10-13] MEDS: LIOTHYRONINE 25 MCG TABLET 12.5 MCG PO (08:59)
[2018-10-13] MEDS: METOPROLOL IR 25 MG TABLET PO ×2 (09:04→21:37)
--- NOTE | 2018-10-13 09:18 | DIET.PN ---
Addendum entered by Ramandeep Galvin 10/13/18 11:46: Amending note to change nutrition dx to: inadequate protein intake r/t acute pancreatitis c hx of alteration in GI tract structure aeb <75% EER over one month, reduced appetite for 3 w, moderate loss of subcutaneous fat and moderate muscle loss, hx of chandana en y gastric bypass (2003). PCM dx redacted as pt wt on 10/11 was twice recorded at 89kg (20# deficit) but bed scales all showing 99kg on 10/12 and 10/13. Discussed w RN, pt no longer fits PCM criteria. Intervention and Monitoring/Evaluation all remain the same. Original Note: Dietary Progress Note Assessment: 63y M consult re MNA score 8 - at risk for malnutrition HT: 170.1cm WT: 89.8kg UBW: 100kg BMI: 34.2 Please note discrepancy bw wts on 10/11 and 10/12 shows +10kg gain- nursing please reassess wt standing. Labs: Lipase 1055 (H) Med Hx: COPD, HLD, Chandana en Y gastric bypass (2003) c complications (sepsis) that had him in ICU for >1mo, has port as result and chronic iron deficiency (receives transfusions monthly) Pt reports feeling bloated c reduced appetite for past month. Dx mild pancreatitis 10/09 admitted 10/11 for worsening of right upper quadrant pain and vomiting. Pt reliant on bariatric vitamins (MVI, Iron, Vit D, Calcium). High risk for malnutrition and vitamin deficiencies r/t bypass. Poor PO intake for 3w, unable to take supplements for 1w, currently NPO until pancreatitis resolves. Nutrition Diagnosis: Moderate acute PCM r/t acute pancreatitis c hx of alteration in GI tract structure aeb 22# wt loss in 3 weeks (9% severe), <75% EER over one month, reduced appetite for 3 w, moderate loss of subcutaneous fat and moderate muscle loss, hx of chandana en y gastric bypass (2003). Interventions: Recc adv diet as tolerated c lowering lipase. Special consideration for appropriate POs r/t bypass- clears: broths only; fulls: glucerna, yogurt smoothie c PRO powder (limit sugar). *Pt will not be receiving measurable kcals/PRO/vitamins until advanced to full liquids. Monitoring/Evaluations: Monitor for diet advancement, associated labs, kcal/PRO/vitamin intake, wt, complications c PO intake r/t dumping syndrome
[2018-10-13 09:38] LABS: Add Manual Diff / Slide Review NO; Basophils Absolute Auto 0 /uL (0-100); Basophils Percent Auto 0.6 % (0-2); Eosinophils Absolute Auto 0 /uL (0-450); Eosinophils Percent Auto 0.9 % (2-4); Hematocrit 42.9 % (41-53); Hemoglobin 14.5 g/dL (13.5-17.5); Lymphocytes Absolute Auto 1400 /uL (1100-4500); Lymphocytes Percent Auto 27.1 % (25-40); Mean Corpuscular HGB Conc 33.8 % (30-36); Mean Corpuscular Hemoglobin 31.7 PG (26-34); Monocytes Absolute Auto 700 /uL (0-900); Neutrophils Absolute Auto 3000 /uL (1500-7000); Neutrophils Percent Auto 58.4 % (50-75); Platelet Count 131 X10^3/uL (150-400); Red Blood Cell Count 4.56 X10^6/uL (4.5-5.9); Red Cell Distribution Width 14.3 % (11.6-14.8); White Blood Cell Count 5.2 X10^3/uL (4.5-11.0)
[2018-10-13 09:59] LABS: Alanine Aminotransferase 30 IU/L (21-72); Albumin 3.7 g/dL (3.5-5.0); Albumin Globulin Ratio 1.5 (1.0-2.8); Alkaline Phosphatase 77 U/L (38-126); Aspartate Aminotransferase 30 IU/L (17-59); Bilirubin Total 0.6 mg/dL (0.2-1.3); Blood Urea Nitrogen 8 mg/dL (9-20); Calcium 8.5 mg/dL (8.4-10.2); Carbon Dioxide 31 mmol/L (22-32); Chloride 100 mmol/L (98-107); Estimated Glomerular Filt Rate > 60.0 mL/min (>60); Globulin 2.4 g/dL (1.7-4.1); Glucose 97 mg/dL (80-110); HEMOLYSIS < 15 (0-50); Lipase 83 U/L (23-300); Potassium 4.2 mmol/L (3.4-5.1); Sodium 137 mmol/L (137-145); Total Protein 6.1 g/dL (6.3-8.2)
[2018-10-13] MEDS: FLUTICASONE FUROATE VILANTEROL 1 EACH INH (10:00)
[2018-10-13] MEDS: TAMSULOSIN 0.4 MG CAPSULE PO (11:07)
[2018-10-13] MEDS: DULOXETINE 30 MG CAPSULE 60 MG PO (11:07)
[2018-10-13] MEDS: buPROPion XL 150 MG TAB 300 MG PO (11:07)
--- NOTE | 2018-10-13 11:15 | CM.DPC ---
DCP Cont: Per MD, rounded briefly on the pt today and will come back around 1300 to see pt again and determine course of treatment with potential for hospital transfer vs referral for outpt follow up and waiting to confirm if pt will have bowel movement and requiring lopez still. SW met bedside with pt and explained role again and pt states that he is feeling a little better but is anxious to know if he will be going to a hospital near [place] today or not. Pt confirms that his will be bedside around lunchtime and is currently not working and able to assist if needed and confirms that his is no longer needing dialysis and completed the organ transplant and has recovered and is so much more able to assist pt when needed. Pt confirms his is his DPOA and that he still has home oxygen through [facility] but no CPAP at home and one not needed at this time. Per pt, his understanding is that his MRI showed a blockage in his gallbladder and he is waiting to find out the course of treatment and recommendations. Dietary has met with pt regarding diet and recommendations as well. SW needs still unclear at this time. Plan: SW to follow closely after MD rounds around lunchtime to determine d/c planning needs and if pt needs hospital transfer. GLENDY Aj
[2018-10-13] MEDS: SODIUM CHLORIDE 0.9% FLUSH 10 ML IV (12:52)
[2018-10-13] MEDS: LORazepam 2 MG/ML INJ 1 MG IV (13:02)
--- NOTE | 2018-10-13 18:02 | P.PN_ITS ---
Subjective Date Patient Seen: 10/13/18 Time Patient Seen: 08:01 Interval history: Patient's pain is controlled on 1 mg of Dilaudid every 2 hours. Does not seem to be affected by food. He is happy that his labs have normalized. Still concerned about making concert tomorrow night. His biggest complaint is is headache. He does take Imitrex 100-200 mg at home for this. He is using ice for his back. This is a chronic problem for him. Exam Vital Signs (past 8 hours): - 10/13/18 10:07 10/13/18 16:00 10/13/18 17:08 Temperature 99.5 F Pulse Rate 64 113 H Respiratory Rate 16 20 Blood Pressure 144/86 H Pulse Oximetry 96 86 L 95 10/13/18 17:58 Temperature Pulse Rate 121 H Respiratory Rate 20 Blood Pressure Pulse Oximetry 91 Fraction of Inspired Oxygen 21 Oxygen Delivery Method Nasal Cannula Oxygen Flow Rate 2 Narrative Exam Narrative: General: Well-developed, well-nourished, male, no acute distress. Heart: Regular rate and rhythm Lungs: Clear to auscultation bilaterally, no wheezes, rales or rhonchi Abd: BS+, soft, mild right upper quadrant tenderness, nondistended, no rebound, no guarding Extremities: Warm and well perfused, no edema Objective Labs Result Diagrams: 10/13/18 09:33 10/13/18 09:33 Labs: Laboratory Results - last 24 hr 10/13/18 10/13/18 09:33 09:33 WBC 5.2 RBC 4.56 Hgb 14.5 Hct 42.9 MCV 94.0 MCH 31.7 MCHC 33.8 RDW 14.3 Plt Count 131 L Neut % (Auto) 58.4 Lymph % (Auto) 27.1 [place] % (Auto) 13.0 Eos % (Auto) 0.9 L Baso % (Auto) 0.6 Neut # (Auto) 3000 Lymph # (Auto) 1400 [place] # (Auto) 700 Eos # (Auto) 0 Baso # (Auto) 0 Sodium 137 Potassium 4.2 Chloride 100 Carbon Dioxide 31 BUN 8 L Creatinine 0.80 Estimated GFR > 60.0 BUN/Creatinine Ratio 10.0 Glucose 97 Calcium 8.5 Total Bilirubin 0.6 AST 30 ALT 30 Alkaline Phosphatase 77 Total Protein 6.1 L Albumin 3.7 Globulin 2.4 Albumin/Globulin Ratio 1.5 Lipase 83 Assessment & Plan Assessment & Plan narrative: 63 yo male with symptoms consistent with acute pancreatitis. His lipase normalized quickly. MRCP while it did not show a actual stone in the common bile duct showed some dilation and filling defect. Discussed management with Gastroenterology at [facility] in [place] and given his prior Cris-en-Y procedure would not be appropriate for care there. Discussed the case with the [facility] with images transmitted to them. Since he clinically he he is doing well we will try to advance his diet and see if this episode resolves. Would then follow up at the [facility] outpatient for further management. However if he is unable to tolerate advancing his diet we would discuss transfer again on Tuesday with the [facility]. Today we will continue his current pain regimen at 1 mg q.2 hours. Since he tolerated clears and thick liquids will transition him to oral anti anxiety medications. Severe depression. Will continue his antidepressants. Anxiety. po clonazepam. Atrial fibrillation. continue metoprolol and eliquis. COPD. breo eliptal, prn albuterol chronic migraines. SQ imitrex. Code status: full code DVT prophylaxis: eliquis If his condition improves overnight he tolerates a normal diet we will discharge him to home in the next 24-48 hours. Time Spent With Patient Time with patient: Greater than 35 minutes
[2018-10-13] MEDS: clonazePAM 0.5 MG TABLET 2 MG PO (21:36)
[2018-10-13] MEDS: NORTRIPTYLINE 10 MG CAPSULE PO (21:37)
[2018-10-13] MEDS: MONTELUKAST 10 MG TABLET PO (21:38)
[2018-10-13] MEDS: lamoTRIgine 100 MG TABLET 200 MG PO (21:39)
[2018-10-13] MEDS: ONDANSETRON 4 MG/2 ML INJ IV (21:48)
[2018-10-14] MEDS: SODIUM CHLORIDE 0.9% 1,000 ML 125 ML IV ×2 (02:25→10:11)
[2018-10-14 02:56] VITALS: BP 98/63; PULSE 84; RESP 18; O2SAT 94
[2018-10-14 06:00] VITALS: BP 98/62; PULSE 72; RESP 18; TEMP 36.8; O2SAT 98
[2018-10-14] MEDS: LEVOTHYROXINE 100 MCG TABLET PO (07:23)
[2018-10-14] MEDS: HYDROMORPHONE 1 MG INJ IV ×2 (07:43→13:57)
[2018-10-14] MEDS: clonazePAM 0.5 MG TABLET 2 MG PO (07:44)
[2018-10-14] MEDS: ONDANSETRON 4 MG/2 ML INJ IV (07:44)
[2018-10-14 07:50] VITALS: O2SAT 97
[2018-10-14 07:58] VITALS: BP 127/68; PULSE 78; RESP 17; TEMP 36.8; O2SAT 97
--- NOTE | 2018-10-14 08:21 | DI.RAD.S_ITS ---
PROCEDURE: XR ACUTE ABDOMEN SERIES INDICATIONS: abd pain TECHNIQUE: One view chest and two views of the abdomen were acquired. COMPARISON: [facility], MR, MR ABDOMEN WO CON, 10/12/2018, 9:42. FINDINGS: Surgical changes and devices: There is a left-sided Port-A-Cath central line identified with the tip overlying the atriocaval junction. Postoperative changes of left shoulder are compatible with prior left shoulder arthroplasty. Cervical spinal fusion is also present. Chest: Lungs are clear. Heart size is normal. No pleural effusions. No pneumoperitoneum. Abdomen: Bowel gas pattern is normal. No suspicious calcifications. Visualized solid organ contours appear normal. Bones: No suspicious bony lesions. Degenerative changes of the spine are noted, not well characterized. IMPRESSION: No evidence of a bowel obstruction. Dictated by: Von Marcano M.D. on 10/14/2018 at 8:18 Approved by: Von Marcano M.D. on 10/14/2018 at 8:29
[2018-10-14 09:05] VITALS: PULSE 73; RESP 16; O2SAT 94
[2018-10-14] MEDS: ALBUTEROL/IPRATROPIUM MDI 2 PUFF INH (09:05)
[2018-10-14] MEDS: FLUTICASONE FUROATE VILANTEROL 1 EACH INH (09:05)
[2018-10-14 09:51] LABS: Add Manual Diff / Slide Review NO; Basophils Absolute Auto 0 /uL (0-100); Basophils Percent Auto 0.3 % (0-2); Eosinophils Absolute Auto 0 /uL (0-450); Eosinophils Percent Auto 0.4 % (2-4); Hematocrit 41.4 % (41-53); Lymphocytes Absolute Auto 800 /uL (1100-4500); Lymphocytes Percent Auto 12.7 % (25-40); Mean Corpuscular HGB Conc 33.7 % (30-36); Mean Corpuscular Hemoglobin 31.3 PG (26-34); Mean Corpuscular Volume 92.9 fL (80-100); Monocytes Absolute Auto 800 /uL (0-900); Monocytes Percent Auto 11.7 % (3-14); Neutrophils Absolute Auto 4900 /uL (1500-7000); Neutrophils Percent Auto 74.9 % (50-75); Platelet Count 124 X10^3/uL (150-400); Red Blood Cell Count 4.45 X10^6/uL (4.5-5.9); Red Cell Distribution Width 14.5 % (11.6-14.8); White Blood Cell Count 6.6 X10^3/uL (4.5-11.0)
--- NOTE | 2018-10-14 09:52 | CM.DPC ---
Addendum entered by GLENDY Aj 10/14/18 15:27: ADD: Per , pt now medically stable to d/c home today with follow up as outpt for ongoing needs. Per RN, home meds retrieved from pharmacy and pt d/c home with no concerns at this time. GLENDY Aj Original Note: DCP Cont: Per , likely not a stone in the bile duct but at least dilation and filling and [facility] not able to accept pt transfer and [facility] may consider if pt does not continue to progress. Pt's diet to begin to be advanced and if pt tolerates advancing diet then likely d/c home in 1-2 days with follow up outpt appointment at . If pt does not tolerate diet then possible hospital transfer to Tuesday if they can accept. Plan: SW to follow closely to determine if pt can tolerate advancing diet towards possible d/c home with outpt follow up vs hospital transfer. GLENDY Aj
--- NOTE | 2018-10-14 09:55 | PM.PN.1 ---
Subjective Date Patient Seen: 10/14/18 Time Patient Seen: 07:58 Interval history: Pancreatitis. Increasing pain last night requiring more medication. Pain is right upper quadrant has had in the past. Additionally having increasing nausea since last night. Patient continues to have right upper quadrant pain and nausea. Has not been taking anything orally because he is not terribly interested in liquid salt which is the broth. No new symptoms but recurrence of symptoms he has had. Disappointed is not able to see Swati Betancourt night Exam Vital Signs (past 8 hours): - 10/14/18 02:56 10/14/18 06:00 10/14/18 07:58 Temperature 98.2 F 98.2 F Pulse Rate 84 72 78 Respiratory Rate 18 18 17 Blood Pressure 98/63 98/62 127/68 Pulse Oximetry 94 98 97 Fraction of Inspired Oxygen 21 Oxygen Delivery Method Nasal Cannula Oxygen Flow Rate 2 Narrative Exam Narrative: Patient is resting in his hospital bed appears uncomfortable Lungs are clear heart regular rhythm no murmur gallop abdomen very rare bowel sounds Tenderness right upper quadrant has had in the past seemingly more than when last seen. Objective Labs Result Diagrams: 10/14/18 09:25 10/13/18 09:33 Labs: Laboratory Results - last 24 hr 10/13/18 10/13/18 10/14/18 09:33 09:33 09:25 WBC 5.2 6.6 RBC 4.56 4.45 L Hgb 14.5 14.0 Hct 42.9 41.4 MCV 94.0 92.9 MCH 31.7 31.3 MCHC 33.8 33.7 RDW 14.3 14.5 Plt Count 131 L 124 L Neut % (Auto) 58.4 74.9 Lymph % (Auto) 27.1 12.7 L [place] % (Auto) 13.0 11.7 Eos % (Auto) 0.9 L 0.4 L Baso % (Auto) 0.6 0.3 Neut # (Auto) 3000 4900 Lymph # (Auto) 1400 800 L [place] # (Auto) 700 800 Eos # (Auto) 0 0 Baso # (Auto) 0 0 Sodium 137 Potassium 4.2 Chloride 100 Carbon Dioxide 31 BUN 8 L Creatinine 0.80 Estimated GFR > 60.0 BUN/Creatinine Ratio 10.0 Glucose 97 Calcium 8.5 Total Bilirubin 0.6 AST 30 ALT 30 Alkaline Phosphatase 77 Total Protein 6.1 L Albumin 3.7 Globulin 2.4 Albumin/Globulin Ratio 1.5 Lipase 83 labs ordered for today his white blood cell count has remained stable. CMP is pending. Abdominal x-rays ordered which shows stool but no bowel obstruction Assessment & Plan Assessment & Plan narrative: Recurrence of symptoms the patient had initially were felt secondary to pancreatitis. He additionally he has a dilated common bile duct and there is a question about there may be a retained stone. The yesterday patient was anticipating being discharged today being able to tolerate a soft diet. The plan obviously has been discontinued. The Chem panel pending his x-rays unremarkable white count is normal visually he will need to be referred to the consultants the nurse he wash in today being Tuesday may be somewhat problematic pending lab results 2. His asthma seemed to be stable. 3. Remainder of her medical problems stable at this time
[2018-10-14 10:04] LABS: Amylase 63 U/L (30-110); Lipase 224 U/L (23-300)
[2018-10-14 10:05] LABS: Alanine Aminotransferase 27 IU/L (21-72); Albumin 3.4 g/dL (3.5-5.0); Albumin Globulin Ratio 1.5 (1.0-2.8); Alkaline Phosphatase 67 U/L (38-126); Aspartate Aminotransferase 18 IU/L (17-59); BUN Creatinine Ratio 13.8 (6-22); Bilirubin Total 0.9 mg/dL (0.2-1.3); Blood Urea Nitrogen 11 mg/dL (9-20); Calcium 8.5 mg/dL (8.4-10.2); Carbon Dioxide 33 mmol/L (22-32); Chloride 99 mmol/L (98-107); Estimated Glomerular Filt Rate > 60.0 mL/min (>60); Globulin 2.3 g/dL (1.7-4.1); Glucose 102 mg/dL (80-110); HEMOLYSIS < 15 (0-50); Potassium 4.1 mmol/L (3.4-5.1); Sodium 138 mmol/L (137-145); Total Protein 5.7 g/dL (6.3-8.2)
[2018-10-14] MEDS: HYDROMORPHONE 1 MG INJ 2 MG IV ×2 (10:11→12:45)
[2018-10-14] MEDS: LIOTHYRONINE 25 MCG TABLET 12.5 MCG PO (10:12)
[2018-10-14] MEDS: APIXABAN 5 MG TABLET PO (10:13)
[2018-10-14] MEDS: SODIUM CHLORIDE 0.9% FLUSH 10 ML IV (10:13)
[2018-10-14] MEDS: METOPROLOL IR 25 MG TABLET PO (10:14)
[2018-10-14 11:33] VITALS: BP 110/63; PULSE 82; RESP 18; TEMP 36.7; O2SAT 96
[2018-10-14] MEDS: buPROPion XL 150 MG TAB 300 MG PO (12:39)
[2018-10-14] MEDS: DULOXETINE 30 MG CAPSULE 60 MG PO (12:39)
[2018-10-14] MEDS: TAMSULOSIN 0.4 MG CAPSULE PO (12:39)
--- NOTE | 2018-10-14 13:21 | PC.NURSE ---
Patients home medications from pharmacy given back and placed with his belongings before transfer. Med were Breo inhaler,desonide cream, combivent inhaler ventolin inhaler,spacer, imitrex tablets and one imitrex nasal spray.
--- NOTE | 2018-10-14 16:22 | PC.NURSE ---
Pt having increased pain over night and some nausea, zofran given and nausea resolved. made aware and meds were adjusted. Pt feels like he needs to go to [facility] to work things out. 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 arranged transfer. Dilaudid 1mg given IV prior to d/c. Portacath to hep lock and flushed per protocol. here at time of d/c. She will meet pt down there later. Report given to amb crew and pt left via amb. Tried to call report several times to number given [phone], nobody has answered and it doesn't ring to a voice mail to have them call me back. [place] julianna made aware.
--- NOTE | 2018-10-15 09:18 | P.DS_ITS ---
History of Present Illness Date Patient Seen: 10/14/18 Time Patient Seen: 09:13 Chief complaint: abdominal pain Narrative: The patient was been on hospital for pancreatitis. He got better over time. Add however his symptoms recurred. His his lipase had returned to normal. The evening where his pain got worse and lipase had increased. Discharge Providers Date of admission: 10/11/18 13:35 Discharge Date: 10/14/18 Primary care physician: Eleazar Armstrong MD Consults: 10/11/18 14:58 Consult to Dietitian, Adult Routine Comment: Reason For Exam: at risk for malnutrition on admission assessment Discharge provider: Vasiliy Burnett MD Summary Discharge Diagnosis: 1. Pancreatitis. 2. Retained common bile duct stone. 3. Reactive area. 4. Hyperlipidemia. 5. History depression. 6. Chronic pain. 7. Hypothyroidism. 8. Hypertension. 9. Not migraine headaches. Hospital Course: Patient was admitted with pancreatitis. Lipase of over 1100. IV fluids given. Lipase returned 51 the following day. Patient felt reasonably well. Patient is found have a dilated common bile duct concern being retained stone. Discussions made on Tuesday but transfer. Since he was doing well at his felt that this could be done as an outpatient. However that night on Tuesday night patient developed for increasing pain nausea pain similar to what brought him to the ER. Lipase at that time went up to 223. Discussion was made by me with the Gastroenterology consult and [facility] in and the hospitalist there. Patient was therefore transferred at to the care of hospitalist with consultation by Gastroenterology. It discussed the MRI results as well the fact the patient had Cris-en-Y in the past. Status at Discharge Cognitive/behavioral status at discharge: oriented and at baseline, oriented Functional status at discharge: independent ambulation Overall status at discharge: patient is not back to baseline Time Spent with Patient Greater than 30 minutes Exam Vital Signs (past 8 hours): Fraction of Inspired Oxygen 21 Oxygen Delivery Method Room Air Oxygen Flow Rate 2 Narrative Exam Narrative: Gen.: Skin: Warm well perfused. No prominent lesions. Nonicteric. HEENT: PERRL., normal EOM, external ears canals TMs normal, nasal mucosa normal and midline septum, oropharynx without lesions. Neck: Trachea midline. Thyroid nontender and not enlarged. Carotids without bruits. No lymphadenopathy Back: No obvious deformity or tenderness. Chest: Clear to P&A. Symmetric. CV: RRR no murmur or gallop. No JVD. Abdomen: No masses patient has significant tenderness in right upper quadrant. Plus-minus rebound tenderness Neuro: Cranial nerves II through XII grossly intact. Sensory and motor exams intact. Gait normal. Mental status: Intact for screening Extremities: No cyanosis clubbing or edema Musculoskeletal: No gross deformities Lymphatics: Negative for lymphadenopathy, supraclavicular axillary or inguinal Objective Labs Result Diagrams: 10/14/18 09:25 10/14/18 09:25 Labs: Laboratory Results - last 24 hr 10/14/18 10/14/18 10/14/18 09:25 09:25 09:25 WBC 6.6 RBC 4.45 L Hgb 14.0 Hct 41.4 MCV 92.9 MCH 31.3 MCHC 33.7 RDW 14.5 Plt Count 124 L Neut % (Auto) 74.9 Lymph % (Auto) 12.7 L [place] % (Auto) 11.7 Eos % (Auto) 0.4 L Baso % (Auto) 0.3 Neut # (Auto) 4900 Lymph # (Auto) 800 L [place] # (Auto) 800 Eos # (Auto) 0 Baso # (Auto) 0 Sodium 138 Potassium 4.1 Chloride 99 Carbon Dioxide 33 H BUN 11 Creatinine 0.80 Estimated GFR > 60.0 BUN/Creatinine Ratio 13.8 Glucose 102 Calcium 8.5 Total Bilirubin 0.9 AST 18 ALT 27 Alkaline Phosphatase 67 Total Protein 5.7 L Albumin 3.4 L Globulin 2.3 Albumin/Globulin Ratio 1.5 Amylase 63 Lipase 224 D Discharge Plan Discharge Plan Patient Disposition: [facility] Transfer to: [facility] Under care of provider: Jonelle Galvin M..D. Discharge Med Rec/Prescriptions Prescriptions: Continued sumatriptan succinate 100 mg tablet 200 mg PO Q2-4H PRN (Reason: Migraine Headache) Qty: 12 RF: 0 sumatriptan succinate 6 mg/0.5 mL pen injector 1 dose SUBCUT PRN PRN (Reason: Migraine Headache) Qty: 10 RF: 0 Breo Ellipta 200 MCG/25 MCG blister with device 1 puff INH DAILY Qty: 0 RF: 0 Combivent Respimat 4 GM mist See Rx Instructions .ROUTE .COMPLEX MDD 6 Qty: 0 RF: 0 albuterol sulfate 1.25 MG/3 ML solution for nebulization 1.25 mg INH Q4HP PRN (Reason: Shortness Of Breath) Qty: 0 RF: 0 cyclobenzaprine 10 mg tablet 10 mg PO TID PRN (Reason: muscle spasm) Qty: 30 RF: 0 bupropion HCl 300 mg tablet extended release 24 hr 300 mg PO QNOON Qty: 7 RF: 0 eszopiclone [Lunesta] 2 mg tablet 2 mg PO BEDTIME Qty: 14 RF: 0 liothyronine [Cytomel] 25 mcg tablet 12.5 mcg PO DAILY Qty: 14 RF: 0 metoprolol tartrate 25 mg tablet 25 mg PO BID Qty: 28 RF: 0 montelukast [Singulair] 10 mg tablet 10 mg PO BEDTIME Qty: 14 RF: 0 duloxetine [Cymbalta] 60 mg capsule,delayed release(DR/EC) 60 mg PO QNOON Qty: 30 RF: 2 atorvastatin [Lipitor] 10 mg tablet 10 mg PO BEDTIME Qty: 30 RF: 3 levothyroxine 100 mcg tablet 100 mcg PO QAM Qty: 90 RF: 1 lamotrigine 200 mg tablet 200 mg PO BEDTIME Qty: 30 RF: 2 calcium citrate 250 mg calcium tablet 500 mg PO BID RF: 0 albuterol sulfate [Ventolin HFA] 90 MCG/PUFF HFA aerosol inhaler 1 puff INH SEE INSTRUCTIONS RF: 0 sumatriptan 20 mg/actuation spray,non-aerosol 20 mg NASAL Q2H PRN (Reason: Migraine Headache) RF: 0 clonazepam 2 mg tablet 2 mg PO TID RF: 0 ondansetron 4 mg tablet,disintegrating 4 mg PO Q6H PRN (Reason: nausea and vomiting) Qty: 20 RF: 0 hydrocodone-acetaminophen 5-325 mg tablet 1 tab PO Q4H PRN (Reason: pain) Qty: 14 RF: 0 desonide 0.05 % cream 1 applic Topical PRN PRN (Reason: Inflammation) RF: 0 ketoconazole 2 % shampoo 1 applic Topical DAILY PRN (Reason: Skin Irritation) RF: 0 clobetasol 0.05 % ointment 1 applic Topical SUSA RF: 0 tamsulosin [Flomax] 0.4 mg capsule 0.4 mg PO QNOON RF: 0 multivitamin Tablet 1 tab PO DAILY RF: 0 Vitamin B-12 1 tab PO DAILY RF: 0 Eliquis 5 mg tablet 5 mg PO BID RF: 0 Ajovy 225 mg/1.5 mL syringe 225 mg SUBCUT QMONTH Qty: 1.5 RF: 11 nortriptyline 10 mg capsule 10 mg PO BEDTIME Qty: 30 RF: 0 Follow up/Referrals: Eleazar Armstrong MD [Primary Care Provider] - Discharge Orders: Discharge (Order); Ordered 10/14/18 Ordered By: Vasiliy Burnett Discharge Data Primary Care Provider: Eleazar Armstrong Attending Provider: Gloria Colin Admit Date/Time: 10/11/18 13:35 Discharges patient from system. Discharge Date/Time: 10/14/18 14:10
--- NOTE | 2018-10-18 18:18 | PM.DS.1 ---
History of Present Illness Chief complaint: abdominal pain Narrative: The patient was been on hospital for pancreatitis. He got better over time. Add however his symptoms recurred. His his lipase had returned to normal. The evening where his pain got worse and lipase had increased.. Patient has moderate acute protein calorie malnutrition. Discharge Providers Date of admission: 10/11/18 13:35 Discharge Date: 10/14/18 Primary care physician: Eleazar Armstrong MD Consults: 10/11/18 14:58 Consult to Dietitian, Adult Routine Comment: Reason For Exam: at risk for malnutrition on admission assessment Discharge provider: Vasiliy Burnett MD Exam Vital Signs (past 8 hours): Fraction of Inspired Oxygen 21 Oxygen Delivery Method Room Air Oxygen Flow Rate 2 Objective Labs Result Diagrams: 10/14/18 09:25 10/14/18 09:25 Discharge Plan Discharge Plan Patient Disposition: [facility] Transfer to: [facility] Under care of provider: Jonelle Galvin M..D. Discharge Med Rec/Prescriptions Prescriptions: Continued sumatriptan succinate 100 mg tablet 200 mg PO Q2-4H PRN (Reason: Migraine Headache) Qty: 12 RF: 0 sumatriptan succinate 6 mg/0.5 mL pen injector 1 dose SUBCUT PRN PRN (Reason: Migraine Headache) Qty: 10 RF: 0 Breo Ellipta 200 MCG/25 MCG blister with device 1 puff INH DAILY Qty: 0 RF: 0 Combivent Respimat 4 GM mist See Rx Instructions .ROUTE .COMPLEX MDD 6 Qty: 0 RF: 0 albuterol sulfate 1.25 MG/3 ML solution for nebulization 1.25 mg INH Q4HP PRN (Reason: Shortness Of Breath) Qty: 0 RF: 0 cyclobenzaprine 10 mg tablet 10 mg PO TID PRN (Reason: muscle spasm) Qty: 30 RF: 0 bupropion HCl 300 mg tablet extended release 24 hr 300 mg PO QNOON Qty: 7 RF: 0 eszopiclone [Lunesta] 2 mg tablet 2 mg PO BEDTIME Qty: 14 RF: 0 liothyronine [Cytomel] 25 mcg tablet 12.5 mcg PO DAILY Qty: 14 RF: 0 metoprolol tartrate 25 mg tablet 25 mg PO BID Qty: 28 RF: 0 montelukast [Singulair] 10 mg tablet 10 mg PO BEDTIME Qty: 14 RF: 0 atorvastatin [Lipitor] 10 mg tablet 10 mg PO BEDTIME Qty: 30 RF: 3 levothyroxine 100 mcg tablet 100 mcg PO QAM Qty: 90 RF: 1 lamotrigine 200 mg tablet 200 mg PO BEDTIME Qty: 30 RF: 2 calcium citrate 250 mg calcium tablet 500 mg PO BID RF: 0 albuterol sulfate [Ventolin HFA] 90 MCG/PUFF HFA aerosol inhaler 1 puff INH SEE INSTRUCTIONS RF: 0 sumatriptan 20 mg/actuation spray,non-aerosol 20 mg NASAL Q2H PRN (Reason: Migraine Headache) RF: 0 clonazepam 2 mg tablet 2 mg PO TID RF: 0 ondansetron 4 mg tablet,disintegrating 4 mg PO Q6H PRN (Reason: nausea and vomiting) Qty: 20 RF: 0 hydrocodone-acetaminophen 5-325 mg tablet 1 tab PO Q4H PRN (Reason: pain) Qty: 14 RF: 0 desonide 0.05 % cream 1 applic Topical PRN PRN (Reason: Inflammation) RF: 0 ketoconazole 2 % shampoo 1 applic Topical DAILY PRN (Reason: Skin Irritation) RF: 0 clobetasol 0.05 % ointment 1 applic Topical SUSA RF: 0 tamsulosin [Flomax] 0.4 mg capsule 0.4 mg PO QNOON RF: 0 multivitamin Tablet 1 tab PO DAILY RF: 0 Vitamin B-12 1 tab PO DAILY RF: 0 Eliquis 5 mg tablet 5 mg PO BID RF: 0 Ajovy 225 mg/1.5 mL syringe 225 mg SUBCUT QMONTH Qty: 1.5 RF: 11 nortriptyline 10 mg capsule 10 mg PO BEDTIME Qty: 30 RF: 0 No Action duloxetine [Cymbalta] 60 mg capsule,delayed release(DR/EC) 60 mg PO QNOON Qty: 30 RF: 2 Follow up/Referrals: Eleazar Armstrong MD [Primary Care Provider] - Discharge Orders: Discharge (Order); Ordered 10/14/18 Ordered By: Vasiliy Burnett Discharge Data Primary Care Provider: Eleazar Armstrong Attending Provider: Gloria Colin Admit Date/Time: 10/11/18 13:35 Discharges patient from system. Discharge Date/Time: 10/14/18 14:10
== END 2018-10-14 14:10 | disposition short-term general hospital (02) | DRG 439 ==
LOC: ED 13:34 → AC 14:28
PROVIDERS: Family Medicine; Admitting Provider Family Medicine; Emergency Provider Internal Medicine; PCP Internal Medicine; Visit Provider Family Medicine
DX: K85.90 Acute pancreatitis without necrosis or infection, unspecified (principal); K56.7 Ileus, unspecified; E44.0 Moderate protein-calorie malnutrition; F03.90 Unspecified dementia, unspecified severity, without behavioral disturbance, psychotic disturbance, mood disturbance, and anxiety; K80.50 Calculus of bile duct without cholangitis or cholecystitis without obstruction; I48.0 Paroxysmal atrial fibrillation; F41.9 Anxiety disorder, unspecified; G43.909 Migraine, unspecified, not intractable, without status migrainosus; Z79.01 Long term (current) use of anticoagulants; R33.9 Retention of urine, unspecified; E78.5 Hyperlipidemia, unspecified; E03.9 Hypothyroidism, unspecified; F32.9 Major depressive disorder, single episode, unspecified; Z87.891 Personal history of nicotine dependence; J44.9 Chronic obstructive pulmonary disease, unspecified; G89.29 Other chronic pain; Z68.34 Body mass index [BMI] 34.0-34.9, adult
CPT/HCPCS: 36415; 36591; 71045; 74022; 74181; 76705; 80053; 80061; 81001; 81003; 82150; 82962; 83605; 83690; 84439; 84443; 85025; 85610; 85730; 93005; 94640; 94760; 94762; 96361; 96372; 96374; 96375; 96376; 99223; 99233; 99239; 99283; 99284; J1170; J1644; J2060; J2405; J3030

== ENCOUNTER → 2018-10-24 16:19 | Outpatient (CLI) | payer MEDICARE, SELFPAY ==
[2018-10-11 14:03] VITALS: BMI 31.0
[2018-10-24 16:51] LABS: Add Manual Diff / Slide Review NO; Basophils Absolute Auto 100 /uL (0-100); Basophils Percent Auto 0.5 % (0-2); Eosinophils Absolute Auto 100 /uL (0-450); Eosinophils Percent Auto 0.8 % (2-4); Hematocrit 47.8 % (41-53); Hemoglobin 16.2 g/dL (13.5-17.5); Lymphocytes Absolute Auto 1700 /uL (1100-4500); Lymphocytes Percent Auto 15.1 % (25-40); Mean Corpuscular HGB Conc 33.8 % (30-36); Mean Corpuscular Hemoglobin 31.1 PG (26-34); Mean Corpuscular Volume 92.2 fL (80-100); Monocytes Absolute Auto 600 /uL (0-900); Monocytes Percent Auto 5.2 % (3-14); Neutrophils Absolute Auto 8600 /uL (1500-7000); Neutrophils Percent Auto 78.4 % (50-75); Platelet Count 295 X10^3/uL (150-400); Red Blood Cell Count 5.19 X10^6/uL (4.5-5.9); Red Cell Distribution Width 14.4 % (11.6-14.8)
[2018-10-24 17:20] LABS: Alanine Aminotransferase 48 IU/L (21-72); Albumin 4.3 g/dL (3.5-5.0); Albumin Globulin Ratio 1.7 (1.0-2.8); Alkaline Phosphatase 82 U/L (38-126); Amylase 44 U/L (30-110); Aspartate Aminotransferase 32 IU/L (17-59); BUN Creatinine Ratio 21.1 (6-22); Bilirubin Total 0.5 mg/dL (0.2-1.3); Blood Urea Nitrogen 19 mg/dL (9-20); C-Reactive Protein Quant 0.7 mg/dL (<1.0); Calcium 10.3 mg/dL (8.4-10.2); Carbon Dioxide 23 mmol/L (22-32); Chloride 106 mmol/L (98-107); Estimated Glomerular Filt Rate > 60.0 mL/min (>60); Globulin 2.6 g/dL (1.7-4.1); Glucose 143 mg/dL (80-110); HEMOLYSIS < 15 (0-50); Lipase 83 U/L (23-300); Potassium 4.4 mmol/L (3.4-5.1); Sodium 140 mmol/L (137-145); Total Protein 6.9 g/dL (6.3-8.2)
== END ==
PROVIDERS: PCP Internal Medicine; Visit Provider Internal Medicine
DX: K85.10 Biliary acute pancreatitis without necrosis or infection (principal); K85.90 Acute pancreatitis without necrosis or infection, unspecified
CPT/HCPCS: 36415; 80053; 82150; 83690; 85025; 86140

== ENCOUNTER 2018-11-10 10:45 | Emergency (ER) | payer MEDICARE, SELFPAY ==
[2018-10-11 14:03] VITALS: BMI 31.0
[2018-11-10 10:45] VITALS: BP 141/91; PULSE 88; RESP 20; TEMP 36.9; O2SAT 100; BMI 35.9
[2018-11-10 11:34] LABS: Add Manual Diff / Slide Review NO; Basophils Absolute Auto 0 /uL (0-100); Basophils Percent Auto 0.7 % (0-2); Eosinophils Absolute Auto 200 /uL (0-450); Eosinophils Percent Auto 3.2 % (2-4); Hematocrit 45.1 % (41-53); Hemoglobin 15.1 g/dL (13.5-17.5); Lymphocytes Absolute Auto 1400 /uL (1100-4500); Lymphocytes Percent Auto 25.9 % (25-40); Mean Corpuscular HGB Conc 33.4 % (30-36); Mean Corpuscular Volume 92.9 fL (80-100); Monocytes Absolute Auto 700 /uL (0-900); Monocytes Percent Auto 13.7 % (3-14); Neutrophils Absolute Auto 3000 /uL (1500-7000); Neutrophils Percent Auto 56.5 % (50-75); Platelet Count 148 X10^3/uL (150-400); Red Blood Cell Count 4.85 X10^6/uL (4.5-5.9); Red Cell Distribution Width 13.6 % (11.6-14.8); White Blood Cell Count 5.3 X10^3/uL (4.5-11.0)
--- NOTE | 2018-11-10 11:34 | DI.CT.S_ITS ---
PROCEDURE: CT ABDOMEN PELVIS W CON INDICATIONS: righ upper quad pain recent luca and hx of gastric bypass TECHNIQUE: After the administration of intravenous contrast, 5 mm thick sections acquired from the diaphragm to the symphysis. 5 mm coronal and sagittal reformats were acquired. For radiation dose reduction, the following was used: automated exposure control, adjustment of mA and/or kV according to patient size. COMPARISON: [facility], CT, ABDOMEN/PELVIS WITH CONTRAST, 11/16/2014, 10:00. FINDINGS: Image quality: Excellent. ABDOMEN: Lung bases: Bibasilar scarring/atelectasis is seen. 4 mm nodular density at posterior lateral aspect of left lung base is seen. Heart size is normal. Solid organs: Liver is normal in size and enhancement. There is hepatic steatosis. Gallbladder is surgically absent. Small amount of fluid is seen within gallbladder fossa. No intrahepatic biliary ductal dilatation. Mild prominence of common bile that measures up to 1 cm in diameter. Pancreas enhances normally. Spleen is normal in size and enhancement. No adrenal nodules. Kidneys demonstrate normal size and enhancement, without hydronephrosis. Bilateral renal cysts are again seen, unchanged from prior study and measures up to 4.4 x 3.8 cm in size in the upper pole of right kidney. 2 mm nonobstructing stone in mid pole of left kidney is seen. Peritoneum and bowel: Bowel loops demonstrate normal wall thickness and caliber. No free fluid or air. Prior gastric bypass surgery is seen with post surgical changes. Small hiatal hernia is also noted. Nodes and vessels: No retroperitoneal or mesenteric adenopathy by size criteria. Aorta and inferior vena cava are normal in size. Miscellaneous: No ventral hernias. PELVIS: Genitourinary: Bladder wall thickness is normal. Miscellaneous: No inguinal hernias or adenopathy. Bones: No suspicious bony lesions. No vertebral body compression fractures. IMPRESSION: 1. Patient is status post cholecystectomy with small amount of fluid within gallbladder fossa. Findings most likely represent postsurgical changes. Mild prominence of common bile duct measures up to 1 cm in diameter. No intrahepatic biliary ductal dilatation. 2. Hepatic steatosis. No discrete hepatic lesion. 3. No bowel obstruction. No free fluid or free air. Prior gastric bypass surgery. Small hiatal hernia. 4. No obstructing renal stone hydronephrosis. Right renal cyst as above. Nonobstructing left renal calculus. Dictated by: Nicholas Sandoval M.D. on 11/10/2018 at 13:05 Approved by: Nicholas Sandoval M.D. on 11/10/2018 at 13:14
[2018-11-10 11:36] VITALS: BP 142/78; PULSE 76; RESP 21; O2SAT 94
--- NOTE | 2018-11-10 11:40 | ED_ITS ---
HPI - Abdominal Pain General Chief Complaint: Abdominal Pain Stated Complaint: probable pancretatis/abd pain Time Seen by Provider: 11/10/18 11:09 Source: patient Mode of arrival: ambulatory Limitations: no limitations History of Present Illness HPI narrative: Patient is a 63-year-old male who has history of gastric bypass and recent cholecystectomy at the [facility] on October 18 presents with right upper quadrant pain. He says the pain feels like it did before. He denies any nausea or vomiting. He has also recently been weaned off of his narcotic medications he would prefer not to have narcotic medications must the pain becomes out of control. MD complaint: abdominal pain Location: RUQ Severity: moderate Quality: aching Radiation: none Related Data Home Medications Medication Instructions Recorded Confirmed Breo Ellipta 1 puff INH DAILY #0 12/03/16 10/24/18 Combivent Respimat See Rx Instructions .ROUTE 04/15/17 10/24/18 .COMPLEX #0 MDD 6 albuterol sulfate 1.25 mg INH Q4HP PRN #0 05/24/17 10/24/18 albuterol sulfate [Ventolin HFA] 1 puff INH SEE INSTRUCTIONS 08/22/17 10/24/18 Vitamin B-12 1 tab PO DAILY 02/21/18 10/24/18 clobetasol 1 applic TOPICAL SUSA 02/21/18 10/24/18 desonide 1 applic TOPICAL PRN PRN 02/21/18 10/24/18 ketoconazole 1 applic TOPICAL DAILY PRN 02/21/18 10/24/18 multivitamin 1 tab PO DAILY 02/21/18 10/24/18 tamsulosin [Flomax] 0.4 mg PO QNOON 02/21/18 10/24/18 calcium citrate 250 mg tablet 500 mg PO BID tab 03/28/18 10/24/18 apixaban 5 mg tablet 5 mg PO BID 05/30/18 10/24/18 sumatriptan 100 mg tablet 200 mg PO Q2-4H PRN #12 tab 08/11/18 10/24/18 sumatriptan 6 mg/0.5 mL 1 dose SUBCUT PRN PRN #10 ml 08/11/18 10/24/18 subcutaneous pen injector sumatriptan 20 mg NASAL Q2H PRN 08/29/18 10/24/18 clonazepam 2 mg PO TID 10/09/18 10/24/18 Previous Rx's Medication Instructions Recorded cyclobenzaprine 10 mg tablet 10 mg PO TID PRN #30 tab 01/09/18 bupropion HCl XL 300 mg 24 hr 300 mg PO QNOON #7 tab 05/17/18 tablet, extended release eszopiclone 2 mg tablet 2 mg PO BEDTIME #14 tab 05/18/18 liothyronine 25 mcg tablet 12.5 mcg PO DAILY #14 tab 05/18/18 metoprolol tartrate 25 mg tablet 25 mg PO BID #28 tab 05/18/18 montelukast 10 mg tablet 10 mg PO BEDTIME #14 tab 05/18/18 fremanezumab-vfrm 225 mg/1.5 mL 225 mg SUBCUT QMONTH #1.5 ml 05/30/18 subcutaneous syringe nortriptyline 10 mg capsule 10 mg PO BEDTIME #30 cap 05/31/18 atorvastatin 10 mg tablet 10 mg PO BEDTIME #30 tab 07/24/18 levothyroxine 100 mcg tablet 100 mcg PO QAM #90 tab 08/01/18 lamotrigine 200 mg tablet 200 mg PO BEDTIME #30 tab 08/24/18 ondansetron 4 mg PO Q6H PRN #20 tab 10/09/18 duloxetine 60 mg capsule,delayed 60 mg PO QNOON #30 cap 10/16/18 release oxycodone 10 mg tablet 10 mg PO Q4-6H PRN #30 tab 10/24/18 Allergies Allergy/AdvReac Type Severity Reaction Status Date / Time doxycycline [DOXYCYCLINE] Allergy Mild ITCHING Verified 10/24/18 15:41 ketorolac [KETOROLAC] Allergy Unknown Verified 10/24/18 15:41 NSAIDS (Non-Steroidal AdvReac Unknown TO AVOID Verified 10/24/18 15:41 Anti-Inflamma R/T [NSAIDS (NON-STEROIDAL GASTRIC ANTI-INFLAMMA] BYPASS Review of Systems Review of Systems GENERAL: Denies chills, fatigue, malaise, fever, sweats, travel HEENT: Denies sinus pain, ear pain, sore throat, difficulty swallowing, neck pain RESPIRATORY: Denies dyspnea, cough, wheezing, hemoptysis, sputum. CARDIOVASCULAR: Denies chest pain, palpitations, orthopnea, edema GASTROINTESTINAL: See HPI : Denies dysuria, frequency, incontinence, hematuria, urinary retention, flank pain. MUSCULOSKELETAL: Denies weakness, joint pain, or bony pain SKIN: No rash, no erythema, no pruritus NEUROLOGIC: Denies weakness, dizziness, headache, numbness, change in speech, confusion PSYCHIATRIC: No concerning psychosocial issues. 12 point review of systems is negative except for those stated above and HPI [facility] Medical History Insomnia (Chronic) Mixed hyperlipidemia (Chronic) Hypothyroidism (Chronic) Major depressive disorder, recurrent episode, severe (Chronic) Anxiety (Chronic) Paroxysmal atrial fibrillation (Chronic) Chronic pain syndrome (Chronic 11/08/16) Post traumatic stress disorder (PTSD) (Chronic) Sleep apnea (Ruled-out) Cognitive disorder (Chronic 04/24/14) Obesity with body mass index (BMI) of 30.0 to 39.9 (Chronic 12/06/14) Other iron deficiency anemia (Chronic 02/03/15) Chronic left shoulder pain (Chronic 01/20/16) Chronic obstructive pulmonary disease (Chronic 08/05/17) H/O renal calculi (Inactive) H/O migraine (Inactive) S/P ECT (electroconvulsive therapy) (Acute) Sarcoidosis (Chronic) Psoriasis (Chronic) Iron deficiency (Chronic) 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) Vitamin B12 deficiency (Chronic 02/19/11) History of stroke (Inactive) Hypersomnia (Chronic) Narcotic dependence (Resolved 09/01/16) Patent foramen ovale (Resolved) Pneumonia (Resolved) Surgical History History of gastric bypass (Inactive ~2003) History of total shoulder replacement (Inactive ~12/2015) S/P lumbar laminectomy (Inactive ~10/2017) History of Cris-en-Y gastric bypass (Inactive ~2003) S/P laparoscopic cholecystectomy (Inactive 10/18/18) Family History Father No problems noted. Mother No problems noted. 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 yeimy/pentecostal: [employer] travel history: over 6 months ago and other Smoking Status: Former smoker Tobacco: How many years used: 10 Smokeless tobacco user: other quit status: quit date established second hand exposure: Yes (Childhood) alcohol intake: current substance use type: does not use Family History Father No problems noted. Mother No problems noted. 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 HEENT: Head atraumatic,EOMI, pupils reactive, face symmetric, moist mucous membranes CARDIOVASCULAR: Regular rate and rhythm without murmurs, rubs or gallops. RESPIRATORY: Breath sounds equal bilaterally, no wheezes rales or rhonchi. ABDOMEN: Soft, tender right upper quadrant no guarding no rebound no epigastric pain scars noted on abdomen he actually has a small opening inferior his umbilicus. He says that is from him picking at it. EXTREMITIES: Normal range of motion, no clubbing or edema. Neurovascularly intact NEUROLOGICAL: Alert and oriented x4.Normal gait and speech. SKIN: Warm, dry, no laceration, no petechiae, no rashes or lesions. Course Orders Ordered: ED Orders 11/10/18 10:59 EKG-12 Lead Stat 11/10/18 11:25 Complete Blood Count AUTO DIFF Stat Comprehensive Metabolic Panel Stat Lipase Stat Partial Thromboplastin Time Stat Prothrombin Time INR Stat 11/10/18 11:34 CT abdomen pelvis w con Stat Discontinued Medications Hydromorphone HCl (Dilaudid) 1 mg IV NOW ONE Stop: 11/10/18 12:07 Last Admin: 11/10/18 12:18 Dose: 1 mg Hydromorphone HCl (Dilaudid) 1 mg IM NOW ONE Stop: 11/10/18 14:09 Last Admin: 11/10/18 15:23 Dose: 1 mg Sodium Chloride (Normal Saline 0.9%) 1,000 mls @ 1,000 mls/hr IV BOLUS ONE Stop: 11/10/18 13:29 Last Infusion: 11/10/18 15:35 Dose: 0 mls/hr Admin: 11/10/18 14:10 Dose: 1,000 mls/hr Ondansetron HCl (Zofran) 4 mg IV NOW ONE Stop: 11/10/18 12:07 Last Admin: 11/10/18 12:17 Dose: 4 mg Vital Signs - 8 hr 11/10/18 10:45 11/10/18 11:36 11/10/18 11:43 Temperature 98.5 F Pulse Rate 88 76 76 Respiratory Rate 20 21 18 Blood Pressure 141/91 H Blood Pressure [Right Arm] 142/78 H 142/78 H Pulse Oximetry 100 94 97 11/10/18 15:10 Temperature Pulse Rate 76 Respiratory Rate 16 Blood Pressure Blood Pressure [Right Arm] 113/69 Pulse Oximetry 95 MDM - Abdominal Pain Lab Data Attestation: I reviewed the patient's lab results. Result diagrams: 11/10/18 11:25 11/10/18 11:25 Lab Results 11/10/18 11/10/18 11/10/18 Range/Units 11:25 11:25 11:25 WBC 5.3 (4.5-11.0) X10^3/uL RBC 4.85 (4.5-5.9) X10^6/uL Hgb 15.1 (13.5-17.5) g/dL Hct 45.1 (41-53) % MCV 92.9 (80-100) fL MCH 31.0 (26-34) PG MCHC 33.4 (30-36) % RDW 13.6 (11.6-14.8) % Plt Count 148 L (150-400) X10^3/uL Neut % (Auto) 56.5 (50-75) % Lymph % (Auto) 25.9 (25-40) % [place] % (Auto) 13.7 (3-14) % Eos % (Auto) 3.2 (2-4) % Baso % (Auto) 0.7 (0-2) % Neut # (Auto) 3000 (1193-1492) /uL Lymph # (Auto) 1400 (1499-7736) /uL [place] # (Auto) 700 (0-900) /uL Eos # (Auto) 200 (0-450) /uL Baso # (Auto) 0 (0-100) /uL PT 13.3 H (10.1-12.7) SECONDS INR 1.1 (0.9-1.3) APTT 38 H D (26.4-36.2) SECONDS Sodium 140 (137-145) mmol/L Potassium 4.2 (3.4-5.1) mmol/L Chloride 103 (98-107) mmol/L Carbon Dioxide 30 (22-32) mmol/L BUN 17 (9-20) mg/dL Creatinine 0.90 (0.66-1.25) mg/dL Estimated GFR > 60.0 (>60) mL/min BUN/Creatinine Ratio 18.9 (6-22) Glucose 85 (80-110) mg/dL Calcium 9.2 (8.4-10.2) mg/dL Total Bilirubin 0.5 (0.2-1.3) mg/dL AST 24 (17-59) IU/L ALT 27 (21-72) IU/L Alkaline Phosphatase 86 (38-126) U/L Total Protein 6.5 (6.3-8.2) g/dL Albumin 4.0 (3.5-5.0) g/dL Globulin 2.5 (1.7-4.1) g/dL Albumin/Globulin Ratio 1.6 (1.0-2.8) Lipase 697 H (23-300) U/L Point of care testing: Urine Dip Bedside Urine Glucose Negative Bedside Urine Bilirubin - Negative Bedside Urine Ketone - Negative Urine Specific [place] 1.010 Bedside Urine Occult Blood - Negative Bedside Urine pH 5.5 Bedside Urine Protein - Negative Bedside Urine Urobilinogen - Negative Bedside Urine Nitrite - Negative Bedside Urine Leukocytes - Negative Esterase Imaging Data CT scan - abdomen: Radiologist's impression: PROCEDURE: CT ABDOMEN PELVIS W CON INDICATIONS: righ upper quad pain recent luca and hx of gastric bypass TECHNIQUE: After the administration of intravenous contrast, 5 mm thick sections acquired from the diaphragm to the symphysis. 5 mm coronal and sagittal reformats were acquired. For radiation dose reduction, the following was used: automated exposure control, adjustment of mA and/or kV according to patient size. COMPARISON: [facility], CT, ABDOMEN/PELVIS WITH CONTRAST, 11/16/2014, 10:00. FINDINGS: Image quality: Excellent. ABDOMEN: Lung bases: Bibasilar scarring/atelectasis is seen. 4 mm nodular density at posterior lateral aspect of left lung base is seen. Heart size is normal. Solid organs: Liver is normal in size and enhancement. There is hepatic steatosis. Gallbladder is surgically absent. Small amount of fluid is seen within gallbladder fossa. No intrahepatic biliary ductal dilatation. Mild prominence of common bile that measures up to 1 cm in diameter. Pancreas enhances normally. Spleen is normal in size and enhancement. No adrenal nodules. Kidneys demonstrate normal size and enhancement, without hydronephrosis. Bilateral renal cysts are again seen, unchanged from prior study and measures up to 4.4 x 3.8 cm in size in the upper pole of right kidney. 2 mm nonobstructing stone in mid pole of left kidney is seen. Peritoneum and bowel: Bowel loops demonstrate normal wall thickness and caliber. No free fluid or air. Prior gastric bypass surgery is seen with post surgical changes. Small hiatal hernia is also noted. Nodes and vessels: No retroperitoneal or mesenteric adenopathy by size crit eria. Aorta and inferior vena cava are normal in size. Miscellaneous: No ventral hernias. PELVIS: Genitourinary: Bladder wall thickness is normal. Miscellaneous: No inguinal hernias or adenopathy. Bones: No suspicious bony lesions. No vertebral body compression fractures. IMPRESSION: 1. Patient is status post cholecystectomy with small amount of fluid within gallbladder fossa. Findings most likely represent postsurgical changes. Mild prominence of common bile duct measures up to 1 cm in diameter. No intrahepatic biliary ductal dilatation. 2. Hepatic steatosis. No discrete hepatic lesion. 3. No bowel obstruction. No free fluid or free air. Prior gastric bypass surgery. Small hiatal hernia. 4. No obstructing renal stone hydronephrosis. Right renal cyst as above. Nonobstructing left renal calculus. Dictated by: Nicholas Sandoval M.D. on 11/10/2018 at 13:05 MDM Narrative Medical decision making narrative: Blood work and CAT scan today reassuring no complication from surgery. Patient overall is feeling better after Dilaudid. He unfortunately did not get all his IV fluid he does have mildly elevated lipase but not enough to be pancreatitis. Tolerating oral fluids. He understands to increase his fluid intake and return to ED if needed. Discharge Plan Departure Patient Disposition: Home Clinical Impression: Abdominal pain Qualifiers: Abdominal location: right upper quadrant Qualified Code(s): R10.11 - Right upper quadrant pain Discharge Date/Time: 11/10/18 15:37 Interventions: ED Discharge Assessment Last Done: 11/10/18 15:36 Instructions: DI for Abdominal Pain-Adult Activity Restrictions/Additional Instructions: *You have been diagnosed with abdominal pain *What to do: You have a slightly elevated lipase. I recommend that you increase fluid intake *Continue to take medications as directed *Follow up with your primary care provider in 2-3 days *Return to ER if you should have increasing abdominal pain persistent nausea or vomiting or any new, worsening or concerning symptoms Prescriptions: No Action sumatriptan succinate 100 mg tablet 200 mg PO Q2-4H PRN (Reason: Migraine Headache) Qty: 12 RF: 0 sumatriptan succinate 6 mg/0.5 mL pen injector 1 dose SUBCUT PRN PRN (Reason: Migraine Headache) Qty: 10 RF: 0 Breo Ellipta 200 MCG/25 MCG blister with device 1 puff INH DAILY Qty: 0 RF: 0 Combivent Respimat 4 GM mist See Rx Instructions .ROUTE .COMPLEX MDD 6 Qty: 0 RF: 0 albuterol sulfate 1.25 MG/3 ML solution for nebulization 1.25 mg INH Q4HP PRN (Reason: Shortness Of Breath) Qty: 0 RF: 0 cyclobenzaprine 10 mg tablet 10 mg PO TID PRN (Reason: muscle spasm) Qty: 30 RF: 0 bupropion HCl 300 mg tablet extended release 24 hr 300 mg PO QNOON Qty: 7 RF: 0 eszopiclone [Lunesta] 2 mg tablet 2 mg PO BEDTIME Qty: 14 RF: 0 liothyronine [Cytomel] 25 mcg tablet 12.5 mcg PO DAILY Qty: 14 RF: 0 metoprolol tartrate 25 mg tablet 25 mg PO BID Qty: 28 RF: 0 montelukast [Singulair] 10 mg tablet 10 mg PO BEDTIME Qty: 14 RF: 0 atorvastatin [Lipitor] 10 mg tablet 10 mg PO BEDTIME Qty: 30 RF: 3 levothyroxine 100 mcg tablet 100 mcg PO QAM Qty: 90 RF: 1 lamotrigine 200 mg tablet 200 mg PO BEDTIME Qty: 30 RF: 2 duloxetine [Cymbalta] 60 mg capsule,delayed release(DR/EC) 60 mg PO QNOON Qty: 30 RF: 2 oxycodone 10 mg tablet 10 mg PO Q4-6H PRN (Reason: pain) Qty: 30 RF: 0 calcium citrate 250 mg calcium tablet 500 mg PO BID RF: 0 albuterol sulfate [Ventolin HFA] 90 MCG/PUFF HFA aerosol inhaler 1 puff INH SEE INSTRUCTIONS RF: 0 sumatriptan 20 mg/actuation spray,non-aerosol 20 mg NASAL Q2H PRN (Reason: Migraine Headache) RF: 0 clonazepam 2 mg tablet 2 mg PO TID RF: 0 ondansetron 4 mg tablet,disintegrating 4 mg PO Q6H PRN (Reason: nausea and vomiting) Qty: 20 RF: 0 desonide 0.05 % cream 1 applic Topical PRN PRN (Reason: Inflammation) RF: 0 ketoconazole 2 % shampoo 1 applic Topical DAILY PRN (Reason: Skin Irritation) RF: 0 clobetasol 0.05 % ointment 1 applic Topical SUSA RF: 0 tamsulosin [Flomax] 0.4 mg capsule 0.4 mg PO QNOON RF: 0 multivitamin Tablet 1 tab PO DAILY RF: 0 Vitamin B-12 1 tab PO DAILY RF: 0 Eliquis 5 mg tablet 5 mg PO BID RF: 0 Ajovy 225 mg/1.5 mL syringe 225 mg SUBCUT QMONTH Qty: 1.5 RF: 11 nortriptyline 10 mg capsule 10 mg PO BEDTIME Qty: 30 RF: 0 Referrals: Eelazar Armstrong MD [Primary Care Provider] -
[2018-11-10 11:42] LABS: INR 1.1 (0.9-1.3); Prothrombin Time 13.3 SECONDS (10.1-12.7)
[2018-11-10 11:43] VITALS: BP 142/78; PULSE 76; RESP 18; O2SAT 97
[2018-11-10 11:45] LABS: PTT Partial Thromboplastin Tim 38 SECONDS (26.4-36.2)
[2018-11-10 11:46] LABS: Alanine Aminotransferase 27 IU/L (21-72); Albumin Globulin Ratio 1.6 (1.0-2.8); Alkaline Phosphatase 86 U/L (38-126); Aspartate Aminotransferase 24 IU/L (17-59); BUN Creatinine Ratio 18.9 (6-22); Bilirubin Total 0.5 mg/dL (0.2-1.3); Blood Urea Nitrogen 17 mg/dL (9-20); Calcium 9.2 mg/dL (8.4-10.2); Carbon Dioxide 30 mmol/L (22-32); Chloride 103 mmol/L (98-107); Estimated Glomerular Filt Rate > 60.0 mL/min (>60); Globulin 2.5 g/dL (1.7-4.1); Glucose 85 mg/dL (80-110); HEMOLYSIS < 15 (0-50); Lipase 697 U/L (23-300); Potassium 4.2 mmol/L (3.4-5.1); Sodium 140 mmol/L (137-145); Total Protein 6.5 g/dL (6.3-8.2)
[2018-11-10] MEDS: ONDANSETRON 4 MG/2 ML INJ IV (12:17)
[2018-11-10] MEDS: HYDROMORPHONE 1 MG INJ IV (12:18)
[2018-11-10] MEDS: SODIUM CHLORIDE 0.9% 1,000 ML 1000 ML IV (14:10)
[2018-11-10 15:10] VITALS: BP 113/69; PULSE 76; RESP 16; O2SAT 95
--- NOTE | 2018-11-10 15:22 | PC.NURSE ---
discharged power port per protocol. site intact no bleeding. 2x2 applied to site.
[2018-11-10] MEDS: HYDROMORPHONE 1 MG INJ IM (15:23)
== END 2018-11-10 15:37 | disposition home or self-care (01) ==
PROVIDERS: Emergency Provider Emergency Medicine; PCP Internal Medicine
DX: R10.11 Right upper quadrant pain (principal); Z98.84 Bariatric surgery status
CPT/HCPCS: 36415; 36591; 74177; 80053; 81003; 83690; 85025; 85610; 85730; 93005; 96361; 96372; 96374; 96375; 99283; 99285; J1170; J2405; Q9967

== ENCOUNTER 2018-11-12 06:36 | Emergency (ER) | payer MEDICARE, SELFPAY ==
[2018-10-11 14:03] VITALS: BMI 31.0
[2018-11-12 06:47] VITALS: BP 138/76; PULSE 72; RESP 16; O2SAT 98; BMI 33.6
[2018-11-12] MEDS: SODIUM CHLORIDE 0.9% 1,000 ML 1000 ML IV (07:35)
--- NOTE | 2018-11-12 07:39 | ED_ITS ---
HPI - Abdominal Pain General Chief Complaint: Abdominal Pain Stated Complaint: abd pain Time Seen by Provider: 11/12/18 06:49 Source: patient and old records reviewed Mode of arrival: ambulatory Limitations: no limitations History of Present Illness HPI narrative: 63-year-old male comes to the emergency with complaint of abdominal pain. Patient states that it started. He was seen here on the 10 of November for the same. He was told that he did have a pancreatitis attempted liquid diet return if symptoms were worsening. Patient states that it has been worsening although it is feels generalized as well as the right upper quadrant. He had similar pain in October and recently had cholecystectomy after being tra nsferred to [facility] because he had a history of gastric bypass and they would not be able to port for ERCP at other facilities. Patient states that they ultimately took out his gallbladder. He felt nauseated 2 days ago on Tuesday, no vomiting. No fevers or chills he is aware of. He has had diarrhea since Tuesday frequently. He denies any black or bloody stool. Denies any issue s with urination. Patient's primary care is Dr. Armstrong. Related Data Home Medications Medication Instructions Recorded Confirmed Breo Ellipta 1 puff INH DAILY #0 12/03/16 10/24/18 Combivent Respimat See Rx Instructions .ROUTE 04/15/17 10/24/18 .COMPLEX #0 MDD 6 albuterol sulfate 1.25 mg INH Q4HP PRN #0 05/24/17 10/24/18 albuterol sulfate [Ventolin HFA] 1 puff INH SEE INSTRUCTIONS 08/22/17 10/24/18 Vitamin B-12 1 tab PO DAILY 02/21/18 10/24/18 clobetasol 1 applic TOPICAL SUSA 02/21/18 10/24/18 desonide 1 applic TOPICAL PRN PRN 02/21/18 10/24/18 ketoconazole 1 applic TOPICAL DAILY PRN 02/21/18 10/24/18 multivitamin 1 tab PO DAILY 02/21/18 10/24/18 tamsulosin [Flomax] 0.4 mg PO QNOON 02/21/18 10/24/18 calcium citrate 250 mg tablet 500 mg PO BID tab 03/28/18 10/24/18 apixaban 5 mg tablet 5 mg PO BID 05/30/18 10/24/18 sumatriptan 100 mg tablet 200 mg PO Q2-4H PRN #12 tab 08/11/18 10/24/18 sumatriptan 6 mg/0.5 mL 1 dose SUBCUT PRN PRN #10 ml 08/11/18 10/24/18 subcutaneous pen injector sumatriptan 20 mg NASAL Q2H PRN 08/29/18 10/24/18 clonazepam 2 mg PO TID 10/09/18 10/24/18 Previous Rx's Medication Instructions Recorded cyclobenzaprine 10 mg tablet 10 mg PO TID PRN #30 tab 01/09/18 bupropion HCl XL 300 mg 24 hr 300 mg PO QNOON #7 tab 05/17/18 tablet, extended release eszopiclone 2 mg tablet 2 mg PO BEDTIME #14 tab 05/18/18 liothyronine 25 mcg tablet 12.5 mcg PO DAILY #14 tab 05/18/18 metoprolol tartrate 25 mg tablet 25 mg PO BID #28 tab 05/18/18 montelukast 10 mg tablet 10 mg PO BEDTIME #14 tab 05/18/18 fremanezumab-vfrm 225 mg/1.5 mL 225 mg SUBCUT QMONTH #1.5 ml 05/30/18 subcutaneous syringe nortriptyline 10 mg capsule 10 mg PO BEDTIME #30 cap 05/31/18 atorvastatin 10 mg tablet 10 mg PO BEDTIME #30 tab 07/24/18 levothyroxine 100 mcg tablet 100 mcg PO QAM #90 tab 08/01/18 lamotrigine 200 mg tablet 200 mg PO BEDTIME #30 tab 08/24/18 ondansetron 4 mg PO Q6H PRN #20 tab 10/09/18 duloxetine 60 mg capsule,delayed 60 mg PO QNOON #30 cap 10/16/18 release oxycodone 10 mg tablet 10 mg PO Q4-6H PRN #30 tab 10/24/18 oxycodone 10 mg PO Q4-6H PRN #10 tab 11/12/18 Allergies Allergy/AdvReac Type Severity Reaction Status Date / Time doxycycline [DOXYCYCLINE] Allergy Mild ITCHING Verified 10/24/18 15:41 ketorolac [KETOROLAC] Allergy Unknown Verified 10/24/18 15:41 NSAIDS (Non-Steroidal AdvReac Unknown TO AVOID Verified 10/24/18 15:41 Anti-Inflamma R/T [NSAIDS (NON-STEROIDAL GASTRIC ANTI-INFLAMMA] BYPASS Review of Systems Review of Systems ROS Unobtainable: All systems reviewed & are unremarkable except as noted in HPI and below Constitutional Denies chills, Denies fever(s), Denies lethargy and Denies weakness Cardiovascular Denies chest pain and Denies dyspnea Respiratory Denies dyspnea Gastrointestinal Gastrointestinal: Reports abdominal pain, Denies melena, Denies hematochezia, Reports change in bowel habits, Denies tenesmus, Denies coffee ground emesis, Denies constipation, Reports diarrhea, Reports nausea (resolved Tuesday) and Denies vomiting Genitourinary Denies hematuria, Denies dysuria, Denies flank pain, Denies urinary frequency, Denies urinary incontinence and Denies urinary urgency Musculoskeletal Denies back pain Integumentary/Breasts Denies non-healing lesions and Denies rash Neurologic Denies weakness [facility] Medical History Insomnia (Chronic) Mixed hyperlipidemia (Chronic) Hypothyroidism (Chronic) Major depressive disorder, recurrent episode, severe (Chronic) Anxiety (Chronic) Paroxysmal atrial fibrillation (Chronic) Chronic pain syndrome (Chronic 11/08/16) Post traumatic stress disorder (PTSD) (Chronic) Sleep apnea (Ruled-out) Cognitive disorder (Chronic 04/24/14) Obesity with body mass index (BMI) of 30.0 to 39.9 (Chronic 12/06/14) Other iron deficiency anemia (Chronic 02/03/15) Chronic left shoulder pain (Chronic 01/20/16) Chronic obstructive pulmonary disease (Chronic 08/05/17) H/O renal calculi (Inactive) H/O migraine (Inactive) S/P ECT (electroconvulsive therapy) (Acute) Sarcoidosis (Chronic) Psoriasis (Chronic) Iron deficiency (Chronic) 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) Vitamin B12 deficiency (Chronic 02/19/11) History of stroke (Inactive) Hypersomnia (Chronic) Narcotic dependence (Resolved 09/01/16) Patent foramen ovale (Resolved) Pneumonia (Resolved) Surgical History History of gastric bypass (Inactive ~2003) History of total shoulder replacement (Inactive ~12/2015) S/P lumbar laminectomy (Inactive ~10/2017) History of Cris-en-Y gastric bypass (Inactive ~2003) S/P laparoscopic cholecystectomy (Inactive 10/18/18) Family History Father No problems noted. Mother No problems noted. 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 HEENT: Head normocephalic, atraumatic, EOMI, pupils reactive, face symmetric, moist mucous membranes NECK: Supple, full range of motion CARDIOVASCULAR: Regular rate and rhythm without murmurs, rubs or gallops. Patient has a port in the left upper chest. RESPIRATORY: Breath sounds equal bilaterally, no wheezes rales or rhonchi. ABDOMEN: Soft, moderate generalized tenderness. Greatest in the right upper quadrant. Patient states pain is increased on the right upper quadrant with palpation on the left side. Normoactive bowel sounds all 4 quadrants. No guarding or rebound, rigidity, no mass. Patient has a healed midline incision as well as to laparoscopic incisions that appear to be clean dry intact without any signs of infection. : No CVA tenderness EXTREMITIES: Normal range of motion, no clubbing or edema. Neurovascularly intact NEUROLOGICAL: Cranial nerves II through XII grossly intact. Moving all extremities SKIN: Warm, dry, no petechiae, no rashes or lesions. Initial Vital Signs Initial Vital Signs: Vital Signs Pulse Rate 72 11/12/18 06:47 Respiratory Rate 16 11/12/18 06:47 Blood Pressure 138/76 11/12/18 06:47 Pulse Oximetry 98 11/12/18 06:47 Course Orders Ordered: Discontinued Medications Hydromorphone HCl (Dilaudid) 1 mg IM NOW ONE Stop: 11/12/18 07:56 Last Admin: 11/12/18 08:18 Dose: 1 mg Hydromorphone HCl (Dilaudid) 1 mg IV NOW ONE Stop: 11/12/18 08:59 Last Admin: 11/12/18 09:03 Dose: 1 mg Sodium Chloride (Normal Saline 0.9%) 1,000 mls @ 1,000 mls/hr IV BOLUS ONE Stop: 11/12/18 07:48 Last Infusion: 11/12/18 08:35 Dose: 0 mls/hr Admin: 11/12/18 07:35 Dose: 1,000 mls/hr Lidocaine HCl (Xylocaine 1%) 1 ml SUBCUT NOW ONE Stop: 11/12/18 07:17 Last Admin: 11/12/18 07:36 Dose: Not Given Lidocaine HCl (Xylocaine 1% (Pf)) 2 ml INJ NOW ONE Stop: 11/12/18 07:20 Last Admin: 11/12/18 07:36 Dose: Not Given Vital Signs - 8 hr 11/12/18 06:47 Pulse Rate 72 Respiratory Rate 16 Blood Pressure 138/76 Pulse Oximetry 98 MDM - Abdominal Pain Lab Data Attestation: I reviewed the patient's lab results. Result diagrams: 11/12/18 07:30 11/12/18 07:30 Lab Results 11/12/18 11/12/18 11/12/18 Range/Units 07:30 07:30 07:30 WBC 4.7 (4.5-11.0) X10^3/uL RBC 4.69 (4.5-5.9) X10^6/uL Hgb 14.6 (13.5-17.5) g/dL Hct 42.7 (41-53) % MCV 91.1 (80-100) fL MCH 31.0 (26-34) PG MCHC 34.0 (30-36) % RDW 13.6 (11.6-14.8) % Plt Count 145 L (150-400) X10^3/uL Neut % (Auto) 51.2 (50-75) % Lymph % (Auto) 26.2 (25-40) % [place] % (Auto) 17.8 H (3-14) % Eos % (Auto) 4.2 H (2-4) % Baso % (Auto) 0.6 (0-2) % Neut # (Auto) 2400 (6724-2902) /uL Lymph # (Auto) 1200 (8031-2611) /uL [place] # (Auto) 800 (0-900) /uL Eos # (Auto) 200 (0-450) /uL Baso # (Auto) 0 (0-100) /uL Sodium 139 (137-145) mmol/L Potassium 3.9 (3.4-5.1) mmol/L Chloride 104 (98-107) mmol/L Carbon Dioxide 32 (22-32) mmol/L BUN 9 (9-20) mg/dL Creatinine 0.90 (0.66-1.25) mg/dL Estimated GFR > 60.0 (>60) mL/min BUN/Creatinine Ratio 10.0 (6-22) Glucose 89 (80-110) mg/dL Lactate 0.9 (0.7-2.1) mmol/L Calcium 9.1 (8.4-10.2) mg/dL Total Bilirubin 0.4 (0.2-1.3) mg/dL AST 54 (17-59) IU/L ALT 52 (21-72) IU/L Alkaline Phosphatase 73 (38-126) U/L Total Protein 6.1 L (6.3-8.2) g/dL Albumin 3.6 (3.5-5.0) g/dL Globulin 2.5 (1.7-4.1) g/dL Albumin/Globulin Ratio 1.4 (1.0-2.8) Lipase (23-300) U/L 11/12/18 Range/Units 07:30 WBC (4.5-11.0) X10^3/uL RBC (4.5-5.9) X10^6/uL Hgb (13.5-17.5) g/dL Hct (41-53) % MCV (80-100) fL MCH (26-34) PG MCHC (30-36) % RDW (11.6-14.8) % Plt Count (150-400) X10^3/uL Neut % (Auto) (50-75) % Lymph % (Auto) (25-40) % [place] % (Auto) (3-14) % Eos % (Auto) (2-4) % Baso % (Auto) (0-2) % Neut # (Auto) (2862-9075) /uL Lymph # (Auto) (7177-2982) /uL [place] # (Auto) (0-900) /uL Eos # (Auto) (0-450) /uL Baso # (Auto) (0-100) /uL Sodium (137-145) mmol/L Potassium (3.4-5.1) mmol/L Chloride (98-107) mmol/L Carbon Dioxide (22-32) mmol/L BUN (9-20) mg/dL Creatinine (0.66-1.25) mg/dL Estimated GFR (>60) mL/min BUN/Creatinine Ratio (6-22) Glucose (80-110) mg/dL Lactate (0.7-2.1) mmol/L Calcium (8.4-10.2) mg/dL Total Bilirubin (0.2-1.3) mg/dL AST (17-59) IU/L ALT (21-72) IU/L Alkaline Phosphatase (38-126) U/L Total Protein (6.3-8.2) g/dL Albumin (3.5-5.0) g/dL Globulin (1.7-4.1) g/dL Albumin/Globulin Ratio (1.0-2.8) Lipase 129 D (23-300) U/L Point of care testing: Urine Dip Bedside Urine Glucose Negative Bedside Urine Bilirubin - Negative Bedside Urine Ketone - Negative Urine Specific [place] 1.020 Bedside Urine Occult Blood - Negative Bedside Urine pH 6.0 Bedside Urine Protein - Negative Bedside Urine Urobilinogen - Negative Bedside Urine Nitrite - Negative Bedside Urine Leukocytes - Negative Esterase Imaging Data CT scan - abdomen: Radiologist's impression: Mario Hemphill 63 M [address] [address] [address] Scan Report Signed Patient: Mario Hemphill [facility]#: [id number] : 4Acct:[id number] Age/Sex: 63 / MDate of Service: 11/10/18 Loc: ED Accession Number: [id number] Procedure: CT abdomen pelvis w con Ordering Provider: Karen Pradhan D.O. PROCEDURE: CT ABDOMEN PELVIS W CON INDICATIONS: righ upper quad pain recent luca and hx of gastric bypass TECHNIQUE: After the administration of intravenous contrast, 5 mm thick sections acquired from the diaphragm to the symphysis. 5 mm coronal and sagittal reformats were acquired. For radiation dose reduction, the following was used: automated exposure control, adjustment of mA and/or kV according to patient size. COMPARISON: [facility], CT, ABDOMEN/PELVIS WITH CONTRAST, 11/16/2014, 10:00. FINDINGS: Image quality: Excellent. ABDOMEN: Lung bases: Bibasilar scarring/atelectasis is seen. 4 mm nodular density at po sterior lateral aspect of left lung base is seen. Heart size is normal. Solid organs: Liver is normal in size and enhancement. There is hepatic steatosis. Gallbladder is surgically absent. Small amount of fluid is seen within gallbladder fossa. No intrahepatic biliary ductal dilatation. Mild prominence of common bile that measures up to 1 cm in diameter. Pancreas enhances normally. Spleen is normal in size and enhancement. No adrenal nodules. Kidneys demonstrate normal size and enh ancement, without hydronephrosis. Bilateral renal cysts are again seen, unchanged from prior study and measures up to 4.4 x 3.8 cm in size in the upper pole of right kidney. 2 mm nonobstructing stone in mid pole of left kidney is seen. Peritoneum and bowel: Bowel loops demonstrate normal wall thickness and caliber. No free fluid or air. Prior gastric bypass surgery is seen with post surgical changes. Small hiatal hernia is also noted. Nodes and vessels: No retroperitoneal or mesenteric adenopathy by size criteria. Aorta and inferior vena cava are normal in size. Miscellaneous: No ventral hernias. PELVIS: Genitourinary: Bladder wall thickness is normal. Miscellaneous: No inguinal hernias or adenopathy. Bones: No suspicious bony lesions. No vertebral body compression fractures. IMPRESSION: 1. Patient is status post cholecystectomy with small amount of fluid within gallbladder fossa. Findings most likely represent postsurgical changes. Mild prominence of common bile duct measures up to 1 cm in diameter. No intrahepatic biliary ductal dilata tion. 2. Hepatic steatosis. No discrete hepatic lesion. 3. No bowel obstruction. No free fluid or free air. Prior gastric bypass surgery. Small hiatal hernia. 4. No obstructing renal stone hydronephrosis. Right renal cyst as above. Nonobstructing left renal calculus. Dictated by: Nicholas Sandoval M.D. on 11/10/2018 at 13:05 Approved by: Nicholas Sandoval M.D. on 11/10/2018 at 13:14 US - abdomen: My impression: prelim-RUQ abd US is negative. could not visualize pancreas. MDM Narrative Medical decision making narrative: Patient returns with abdominal pain that has not improved and has worsened since 11/10/2018. Patient's lab work shows slightly low platelets and elevation of monocytic cells at 17.8%. No left shift or leukocytosis. PT and PTT are slightly elevated patient is on Breo Elliptra, CMP is within normal range. Total protein is slightly decreased. Lipase today is in normal range 129, down from 697 on 11/10/18 and was 83 on 10/24/18. poc urine is negative. Discussed with patient would plan for watchful waiting and oral medication for pain control and recheck in 24-48 hours. We did discuss re- imaging with CT and risks/benefits as patient is likely to have future imaging and he has benign labs and vitals today. Abdominal exam shows some pain but no acute abdomen. Patient elects to hold on CT imaging. He is requesting admis kenny for pain control. Discussed that I would call is primary care team but likely would not be admitted with no clear findings on imaging or labs and no acute abdominal exam findings. He did state that Dr. Armstrong has given him oxycodone 10mg in the past with better control of pain. He states he has a high tolerance for narcotics and often requires weaning and buprenorphine taper. Discussed findings and patient request with Dr. Burnett who is covering Dr. Armstrong, plan for oral pain control and possibly MRCP outpatient if primary team feels it is appropriate. Discharge Plan Departure Patient Disposition: Home Clinical Impression: Abdominal pain Discharge Date/Time: 11/12/18 09:48 Interventions: ED Discharge Assessment Last Done: 11/12/18 09:47 Instructions: DI for Abdominal Pain-Adult Activity Restrictions/Additional Instructions: Follow up with your primary care of surgeon in the next 24-48 hours for recheck, call for an appointment. Discuss with your physician about further imaging if appropriate. Continue home medications as prescribed. Return to the ER for fevers greater than 100.4F, worsening pain, persistent vomiting, black or bloody stools, passing out or lightheadedness, new chest pain or shortness of breath or other new or concerning symptoms. Prescriptions: New oxycodone 10 mg tablet 10 mg PO Q4-6H PRN (Reason: pain) Qty: 10 RF: 0 No Action sumatriptan succinate 100 mg tablet 200 mg PO Q2-4H PRN (Reason: Migraine Headache) Qty: 12 RF: 0 sumatriptan succinate 6 mg/0.5 mL pen injector 1 dose SUBCUT PRN PRN (Reason: Migraine Headache) Qty: 10 RF: 0 Breo Ellipta 200 MCG/25 MCG blister with device 1 puff INH DAILY Qty: 0 RF: 0 Combivent Respimat 4 GM mist See Rx Instructions .ROUTE .COMPLEX MDD 6 Qty: 0 RF: 0 albuterol sulfate 1.25 MG/3 ML solution for nebulization 1.25 mg INH Q4HP PRN (Reason: Shortness Of Breath) Qty: 0 RF: 0 cyclobenzaprine 10 mg tablet 10 mg PO TID PRN (Reason: muscle spasm) Qty: 30 RF: 0 bupropion HCl 300 mg tablet extended release 24 hr 300 mg PO QNOON Qty: 7 RF: 0 eszopiclone [Lunesta] 2 mg tablet 2 mg PO BEDTIME Qty: 14 RF: 0 liothyronine [Cytomel] 25 mcg tablet 12.5 mcg PO DAILY Qty: 14 RF: 0 metoprolol tartrate 25 mg tablet 25 mg PO BID Qty: 28 RF: 0 montelukast [Singulair] 10 mg tablet 10 mg PO BEDTIME Qty: 14 RF: 0 atorvastatin [Lipitor] 10 mg tablet 10 mg PO BEDTIME Qty: 30 RF: 3 levothyroxine 100 mcg tablet 100 mcg PO QAM Qty: 90 RF: 1 lamotrigine 200 mg tablet 200 mg PO BEDTIME Qty: 30 RF: 2 duloxetine [Cymbalta] 60 mg capsule,delayed release(DR/EC) 60 mg PO QNOON Qty: 30 RF: 2 oxycodone 10 mg tablet 10 mg PO Q4-6H PRN (Reason: pain) Qty: 30 RF: 0 calcium citrate 250 mg calcium tablet 500 mg PO BID RF: 0 albuterol sulfate [Ventolin HFA] 90 MCG/PUFF HFA aerosol inhaler 1 puff INH SEE INSTRUCTIONS RF: 0 sumatriptan 20 mg/actuation spray,non-aerosol 20 mg NASAL Q2H PRN (Reason: Migraine Headache) RF: 0 clonazepam 2 mg tablet 2 mg PO TID RF: 0 ondansetron 4 mg tablet,disintegrating 4 mg PO Q6H PRN (Reason: nausea and vomiting) Qty: 20 RF: 0 desonide 0.05 % cream 1 applic Topical PRN PRN (Reason: Inflammation) RF: 0 ketoconazole 2 % shampoo 1 applic Topical DAILY PRN (Reason: Skin Irritation) RF: 0 clobetasol 0.05 % ointment 1 applic Topical SUSA RF: 0 tamsulosin [Flomax] 0.4 mg capsule 0.4 mg PO QNOON RF: 0 multivitamin Tablet 1 tab PO DAILY RF: 0 Vitamin B-12 1 tab PO DAILY RF: 0 Eliquis 5 mg tablet 5 mg PO BID RF: 0 Ajovy 225 mg/1.5 mL syringe 225 mg SUBCUT QMONTH Qty: 1.5 RF: 11 nortriptyline 10 mg capsule 10 mg PO BEDTIME Qty: 30 RF: 0 Referrals: Eleazar Armstrong MD [Primary Care Provider] -
[2018-11-12 07:42] LABS: Add Manual Diff / Slide Review NO; Basophils Absolute Auto 0 /uL (0-100); Basophils Percent Auto 0.6 % (0-2); Eosinophils Absolute Auto 200 /uL (0-450); Eosinophils Percent Auto 4.2 % (2-4); Hematocrit 42.7 % (41-53); Hemoglobin 14.6 g/dL (13.5-17.5); Lymphocytes Absolute Auto 1200 /uL (1100-4500); Lymphocytes Percent Auto 26.2 % (25-40); Mean Corpuscular Volume 91.1 fL (80-100); Monocytes Absolute Auto 800 /uL (0-900); Monocytes Percent Auto 17.8 % (3-14); Neutrophils Absolute Auto 2400 /uL (1500-7000); Neutrophils Percent Auto 51.2 % (50-75); Platelet Count 145 X10^3/uL (150-400); Red Blood Cell Count 4.69 X10^6/uL (4.5-5.9); Red Cell Distribution Width 13.6 % (11.6-14.8); White Blood Cell Count 4.7 X10^3/uL (4.5-11.0)
[2018-11-12 07:52] LABS: Alanine Aminotransferase 52 IU/L (21-72); Albumin 3.6 g/dL (3.5-5.0); Albumin Globulin Ratio 1.4 (1.0-2.8); Alkaline Phosphatase 73 U/L (38-126); Aspartate Aminotransferase 54 IU/L (17-59); Bilirubin Total 0.4 mg/dL (0.2-1.3); Blood Urea Nitrogen 9 mg/dL (9-20); Calcium 9.1 mg/dL (8.4-10.2); Carbon Dioxide 32 mmol/L (22-32); Chloride 104 mmol/L (98-107); Estimated Glomerular Filt Rate > 60.0 mL/min (>60); Globulin 2.5 g/dL (1.7-4.1); Glucose 89 mg/dL (80-110); HEMOLYSIS < 15 (0-50); Lactate (Lactic Acid) 0.9 mmol/L (0.7-2.1); Lipase 129 U/L (23-300); Potassium 3.9 mmol/L (3.4-5.1); Sodium 139 mmol/L (137-145); Total Protein 6.1 g/dL (6.3-8.2)
--- NOTE | 2018-11-12 07:54 | DI.US.S_ITS ---
PROCEDURE: US ABDOMEN LIMITED INDICATIONS: HISTORY IBETH 3 WEEKS AGO; PAIN TECHNIQUE: Real-time focused scanning was performed of the abdomen, with image documentation. COMPARISON: [facility], , US ABDOMEN LIMITED, 10/11/2018, 12:42. FINDINGS: The gallbladder has been surgically removed. There is no biliary dilatation for a post cholecystectomy patient, the common bile duct measures 9 mm. The pancreas is not well-seen. The right kidney measures 11.8 cm in length. There is a 4.5 cm simple cyst seen at the superior pole of the right kidney. IMPRESSION: Status post cholecystectomy, without an acute abnormality identified by ultrasound. Simple appearing right renal cyst incidentally noted. Dictated by: Dayne Desai M.D. on 11/12/2018 at 8:20 Approved by: Dayne Desai M.D. on 11/12/2018 at 8:21
[2018-11-12] MEDS: HYDROMORPHONE 1 MG INJ IM (08:18)
[2018-11-12] MEDS: HYDROMORPHONE 1 MG INJ IV (09:03)
[2018-11-12 09:47] VITALS: BP 137/70; PULSE 84; RESP 17; O2SAT 94
== END 2018-11-12 09:48 | disposition home or self-care (01) ==
PROVIDERS: Emergency Medicine; Emergency Provider Emergency Medicine; PCP Internal Medicine
DX: R10.84 Generalized abdominal pain (principal)
CPT/HCPCS: 36415; 76705; 80053; 81003; 83605; 83690; 85025; 96361; 96372; 96374; 99283; 99284; J1170

== ENCOUNTER 2019-01-04 14:26 | Emergency (ER) | payer MEDICARE, SELFPAY ==
[2018-10-11 14:03] VITALS: BMI 31.0
[2019-01-04 14:31] VITALS: BP 159/111; PULSE 89; RESP 14; TEMP 36.8; O2SAT 99; BMI 38.4
--- NOTE | 2019-01-04 14:40 | DI.RAD.S_ITS ---
PROCEDURE: XR CHEST 1V INDICATIONS: chest pain TECHNIQUE: One view of the chest was acquired. COMPARISON: [facility], CR, XR CHEST 1V, 08/29/2018, 12:51. [facility], CR, XR CHEST 1V, 10/11/2018, 12:23. FINDINGS: Surgical changes and devices: There is a Port-A-Cath on the left with the tip projecting to the atrial caval junction. Lungs and pleura: Lungs are clear. No pleural effusions or pneumothorax. Mediastinum: Mediastinal contours appear normal. Heart size is normal. Bones and chest wall: Left shoulder arthroplasty. No suspicious bony lesions. Overlying soft tissues appear unremarkable. IMPRESSION: No acute cardiopulmonary disease. Dictated by: Savanna Dominguez M.D. on 01/04/2019 at 15:17 Approved by: Savanna Dominguez M.D. on 01/04/2019 at 15:18
[2019-01-04 14:54] LABS: Add Manual Diff / Slide Review NO; Basophils Absolute Auto 0 /uL (0-100); Basophils Percent Auto 0.3 % (0-2); Eosinophils Absolute Auto 0 /uL (0-450); Eosinophils Percent Auto 0.2 % (2-4); Hematocrit 49.2 % (41-53); Hemoglobin 16.4 g/dL (13.5-17.5); Lymphocytes Absolute Auto 700 /uL (1100-4500); Lymphocytes Percent Auto 11.9 % (25-40); Mean Corpuscular HGB Conc 33.4 % (30-36); Mean Corpuscular Hemoglobin 30.7 PG (26-34); Monocytes Absolute Auto 200 /uL (0-900); Monocytes Percent Auto 2.5 % (3-14); Neutrophils Absolute Auto 5400 /uL (1500-7000); Neutrophils Percent Auto 85.1 % (50-75); Platelet Count 197 X10^3/uL (150-400); Red Blood Cell Count 5.35 X10^6/uL (4.5-5.9); Red Cell Distribution Width 13.9 % (11.6-14.8); White Blood Cell Count 6.3 X10^3/uL (4.5-11.0)
[2019-01-04] MEDS: SODIUM CHLORIDE 0.9% 500 ML 21 ML IV (14:56)
--- NOTE | 2019-01-04 15:02 | ED.CHESTPAIN ---
HPI - Chest Pain General Chief Complaint: Chest Pain Stated Complaint: low back pain,chest pressure, pain down left arm Time Seen by Provider: 01/04/19 14:53 Source: patient Mode of arrival: Ambulatory Limitations: no limitations History of Present Illness HPI narrative: 63-year-old male here for evaluation of left-sided chest pain lower back pain. Patient has chronic lower back pain. He does receive ECT 2 times a week for depression. He states that he had ECT earlier today and shortly afterwards started developed left-sided chest pain. States has been constant for the past several hours. Not worse with breathing or palpation. Has never had anything like this in the past. Actually states the symptoms have improved somewhat now as opposed earlier today. Has not tried anything for symptoms prior to arrival Related Data Home Medications Medication Instructions Recorded Confirmed Breo Ellipta 1 puff INH DAILY #0 12/03/16 01/04/19 Combivent Respimat See Rx Instructions .ROUTE 04/15/17 01/04/19 .COMPLEX #0 MDD 6 albuterol sulfate 1.25 mg INH Q4HP PRN #0 05/24/17 01/04/19 albuterol sulfate [Ventolin HFA] 1 puff INH SEE INSTRUCTIONS 08/22/17 01/04/19 Vitamin B-12 1 tab PO DAILY 02/21/18 01/04/19 clobetasol 1 applic TOPICAL SUSA 02/21/18 01/04/19 desonide 1 applic TOPICAL PRN PRN 02/21/18 01/04/19 ketoconazole 1 applic TOPICAL DAILY PRN 02/21/18 01/04/19 multivitamin 1 tab PO DAILY 02/21/18 01/04/19 tamsulosin [Flomax] 0.4 mg PO QNOON 02/21/18 01/04/19 calcium citrate 500 mg PO BID tab 03/28/18 01/04/19 apixaban 5 mg tablet 5 mg PO BID 05/30/18 01/04/19 sumatriptan succinate 100 mg tablet 200 mg PO Q2-4H PRN #12 tab 08/11/18 01/04/19 sumatriptan succinate 6 mg/0.5 mL 1 dose SUBCUT PRN PRN #10 ml 08/11/18 01/04/19 subcutaneous pen injector sumatriptan 20 mg NASAL Q2H PRN 08/29/18 01/04/19 clonazepam 1.5 mg PO QAM 01/04/19 01/04/19 clonazepam 2 mg PO BID 01/04/19 01/04/19 liothyronine [Cytomel] 12.5 mcg PO QAM 01/04/19 01/04/19 Previous Rx's Medication Instructions Recorded cyclobenzaprine 10 mg tablet 10 mg PO TID PRN #30 tab 01/09/18 eszopiclone 2 mg tablet 2 mg PO BEDTIME #14 tab 05/18/18 metoprolol tartrate 25 mg tablet 25 mg PO BID #28 tab 05/18/18 montelukast 10 mg tablet 10 mg PO BEDTIME #14 tab 05/18/18 fremanezumab-vfrm 225 mg/1.5 mL 225 mg SUBCUT QMONTH #1.5 ml 05/30/18 subcutaneous syringe atorvastatin 10 mg tablet 10 mg PO BEDTIME #30 tab 07/24/18 levothyroxine 100 mcg tablet 100 mcg PO QAM #90 tab 08/01/18 ondansetron 4 mg PO Q6H PRN #20 tab 10/09/18 duloxetine 60 mg capsule,delayed 60 mg PO QNOON #30 cap 10/16/18 release bupropion HCl 300 mg 24 hr tablet, 300 mg PO QNOON #30 tab 11/27/18 extended release lamotrigine 200 mg tablet 200 mg PO BEDTIME #30 tab 11/27/18 nortriptyline 10 mg capsule 10 mg PO BEDTIME #30 cap 12/13/18 Allergies Allergy/AdvReac Type Severity Reaction Status Date / Time doxycycline [DOXYCYCLINE] Allergy Mild ITCHING Verified 01/04/19 14:37 ketorolac [KETOROLAC] Allergy Unknown Verified 01/04/19 14:37 NSAIDS (Non-Steroidal AdvReac Unknown TO AVOID Verified 01/04/19 14:37 Anti-Inflamma R/T [NSAIDS (NON-STEROIDAL GASTRIC ANTI-INFLAMMA] BYPASS Review of Systems Constitutional Constitutional: Denies fever(s) Cardiovascular Cardiovascular: Reports chest pain, Denies edema, Denies palpitations and Denies dyspnea Respiratory Respiratory: Denies cough and Denies dyspnea Gastrointestinal Gastrointestinal: Denies abdominal pain, Denies nausea and Denies vomiting Genitourinary Genitourinary: Denies dysuria Musculoskeletal Musculoskeletal: Denies myalgias and Denies arthralgias Integumentary/Breasts Skin/Breast: Denies lesions and Denies rash Neurologic Neurologic: Denies behavioral changes Psychiatric Psychiatric: Denies behavioral changes Endocrine Endocrine: Denies palpitations Hematologic/Lymphatic Comments: On apixaban [facility] Medical History Anxiety (Chronic) Chronic left shoulder pain (Chronic 01/20/16) Chronic obstructive pulmonary disease (Chronic 08/05/17) Chronic pain syndrome (Chronic 11/08/16) Cognitive disorder (Chronic 04/24/14) 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) H/O migraine (Inactive) H/O renal calculi (Inactive) History of stroke (Inactive) Hypersomnia (Chronic) Hypothyroidism (Chronic) Insomnia (Chronic) Iron deficiency (Chronic) Major depressive disorder, recurrent episode, severe (Chronic) Mixed hyperlipidemia (Chronic) Narcotic dependence (Resolved 09/01/16) Obesity with body mass index (BMI) of 30.0 to 39.9 (Chronic 12/06/14) Other iron deficiency anemia (Chronic 02/03/15) Paroxysmal atrial fibrillation (Chronic) Patent foramen ovale (Resolved) Pneumonia (Resolved) Post traumatic stress disorder (PTSD) (Chronic) Psoriasis (Chronic) S/P ECT (electroconvulsive therapy) (Acute) Sarcoidosis (Chronic) Sleep apnea (Ruled-out) Vitamin B12 deficiency (Chronic 02/19/11) Surgical History (Updated 11/29/18 @ 10:08 by Eleazar Armstrong MD) History of gastric bypass (Inactive ~2003) History of Cris-en-Y gastric bypass (Inactive ~2003) History of total shoulder replacement (Inactive ~12/2015) S/P laparoscopic cholecystectomy (Inactive 10/18/18) S/P lumbar laminectomy (Inactive ~10/2017) Family History Father No problems noted. Mother No problems noted. 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 yeimy/lutheran: Denominational travel history: over 6 months ago and other Smoking Status: Former smoker Tobacco: How many years used: 10 Smokeless tobacco user: other quit status: quit date established second hand exposure: Yes (Childhood) alcohol intake: current substance use type: does not use Exam Initial Vital Signs Initial Vital Signs: Vital Signs Temperature 98.2 F 01/04/19 14:31 Pulse Rate 89 01/04/19 14:31 Respiratory Rate 14 01/04/19 14:31 Blood Pressure 159/111 H 01/04/19 14:31 Pulse Oximetry 99 01/04/19 14:31 Const General: cooperative Orientation: alert, awake and oriented x3 HENMT Head: normal to inspection and normocephalic Resp Effort & Inspection: normal respiratory effort Auscultation: clear to auscultation bilaterally Cardio Rate: regular rate Rhythm: regular rhythm Pulses: radial pulses present GI Inspection: non-distended Palpation: soft Skin Lesions: no lesions Rashes: no rashes Neuro General: alert and awake Cognition: normal cognition Speech: speech normal Extrem General: normal to inspection and capillary refill normal Psych Appearance: grossly normal and well kempt Course Orders Ordered: ED Orders 01/04/19 14:40 XR chest 1V Stat Complete Blood Count AUTO DIFF Stat Comprehensive Metabolic Panel Stat Lipase Stat Partial Thromboplastin Time Stat Prothrombin Time INR Stat Troponin & CK Cardiac Panel Stat EKG-12 Lead Stat 01/04/19 16:40 Troponin I Stat Discontinued Medications Hydrocodone Bitart/Acetaminophen ([place] 5/325) 1 tab PO NOW ONE Stop: 01/04/19 15:03 Last Admin: 01/04/19 15:12 Dose: 1 tab Documented by: KAVITHA Heparin Sodium (Porcine) (Heparin Lock Port) 500 unit IV PRN PRN PRN Reason: Flush Last Admin: 01/04/19 17:50 Dose: 500 unit Documented by: KAVITHA Hydromorphone HCl (Dilaudid) 1 mg IM NOW ONE Stop: 01/04/19 16:13 Last Admin: 01/04/19 16:30 Dose: 1 mg Documented by: KAVITHA Sodium Chloride (Normal Saline 0.9%) 500 mls @ 21 mls/hr IV CONT ROSI Last Infusion: 01/04/19 17:54 Dose: 0 mls/hr Documented by: Admin: 01/04/19 14:56 Dose: 21 mls/hr Documented by: KAVITHA Vital Signs Vital signs: Vital Signs - 8 hr 01/04/19 14:31 01/04/19 15:58 01/04/19 16:37 Temperature 98.2 F Pulse Rate 89 91 H 85 Respiratory Rate 14 17 12 Blood Pressure 159/111 H Blood Pressure [Right Arm] 133/83 121/75 Pulse Oximetry 99 92 91 01/04/19 17:58 Temperature Pulse Rate 85 Respiratory Rate 13 Blood Pressure 104/63 Blood Pressure [Right Arm] Pulse Oximetry 95 MDM - Chest Pain Lab Data Attestation: I reviewed the patient's lab results. Result diagrams: 01/04/19 14:40 01/04/19 14:40 Labs: Lab Results 01/04/19 01/04/19 01/04/19 Range/Units 14:40 14:40 14:40 WBC 6.3 (4.5-11.0) X10^3/uL RBC 5.35 (4.5-5.9) X10^6/uL Hgb 16.4 (13.5-17.5) g/dL Hct 49.2 (41-53) % MCV 92.0 (80-100) fL MCH 30.7 (26-34) PG MCHC 33.4 (30-36) % RDW 13.9 (11.6-14.8) % Plt Count 197 (150-400) X10^3/uL Neut % (Auto) 85.1 H (50-75) % Lymph % (Auto) 11.9 L (25-40) % Schuyler % (Auto) 2.5 L (3-14) % Eos % (Auto) 0.2 L (2-4) % Baso % (Auto) 0.3 (0-2) % Neut # (Auto) 5400 (3930-5681) /uL Lymph # (Auto) 700 L (8607-4281) /uL Schuyler # (Auto) 200 (0-900) /uL Eos # (Auto) 0 (0-450) /uL Baso # (Auto) 0 (0-100) /uL PT 12.9 H (10.1-12.7) SECONDS INR 1.1 (0.9-1.3) APTT TNP Sodium 139 (137-145) mmol/L Potassium 4.7 (3.4-5.1) mmol/L Chloride 99 (98-107) mmol/L Carbon Dioxide 31 (22-32) mmol/L BUN 17 (9-20) mg/dL Creatinine 0.90 (0.66-1.25) mg/dL Estimated GFR > 60.0 (>60) mL/min BUN/Creatinine Ratio 18.9 (6-22) Glucose 129 H (80-110) mg/dL Calcium 9.8 (8.4-10.2) mg/dL Total Bilirubin 0.5 (0.2-1.3) mg/dL AST 34 (17-59) IU/L ALT 37 (21-72) IU/L Alkaline Phosphatase 118 (38-126) U/L Total Creatine Kinase 31 L (55-170) U/L CK-MB (CK-2) TNP CK-MB (CK-2) Rel Index TNP Troponin I < 0.012 (0.01-0.034) ng/mL Total Protein 7.2 (6.3-8.2) g/dL Albumin 4.4 (3.5-5.0) g/dL Globulin 2.8 (1.7-4.1) g/dL Albumin/Globulin Ratio 1.6 (1.0-2.8) Lipase 100 (23-300) U/L 01/04/19 Range/Units 16:40 WBC (4.5-11.0) X10^3/uL RBC (4.5-5.9) X10^6/uL Hgb (13.5-17.5) g/dL Hct (41-53) % MCV (80-100) fL MCH (26-34) PG MCHC (30-36) % RDW (11.6-14.8) % Plt Count (150-400) X10^3/uL Neut % (Auto) (50-75) % Lymph % (Auto) (25-40) % Schuyler % (Auto) (3-14) % Eos % (Auto) (2-4) % Baso % (Auto) (0-2) % Neut # (Auto) (1678-2269) /uL Lymph # (Auto) (4386-6520) /uL Schuyler # (Auto) (0-900) /uL Eos # (Auto) (0-450) /uL Baso # (Auto) (0-100) /uL PT (10.1-12.7) SECONDS INR (0.9-1.3) APTT Sodium (137-145) mmol/L Potassium (3.4-5.1) mmol/L Chloride (98-107) mmol/L Carbon Dioxide (22-32) mmol/L BUN (9-20) mg/dL Creatinine (0.66-1.25) mg/dL Estimated GFR (>60) mL/min BUN/Creatinine Ratio (6-22) Glucose (80-110) mg/dL Calcium (8.4-10.2) mg/dL Total Bilirubin (0.2-1.3) mg/dL AST (17-59) IU/L ALT (21-72) IU/L Alkaline Phosphatase (38-126) U/L Total Creatine Kinase (55-170) U/L CK-MB (CK-2) CK-MB (CK-2) Rel Index Troponin I < 0.012 (0.01-0.034) ng/mL Total Protein (6.3-8.2) g/dL Albumin (3.5-5.0) g/dL Globulin (1.7-4.1) g/dL Albumin/Globulin Ratio (1.0-2.8) Lipase (23-300) U/L Imaging Data Chest x-ray: Radiologist's impression: [address] [address] XRay Report Signed Patient: Mario Hemphill [facility]#: [id number] : 4Acct:[id number] Age/Sex: 63 / MDate of Service: 01/04/19 Loc: ED Accession Number: [id number] Procedure: XR chest 1V Ordering Provider: Cali Todd D.O. PROCEDURE: XR CHEST 1V INDICATIONS: chest pain TECHNIQUE: One view of the chest was acquired. COMPARISON: [facility], CR, XR CHEST 1V, 08/29/2018, 12:51. [facility], CR, XR CHEST 1V, 10/11/2018, 12:23. FINDINGS: Surgical changes and devices: There is a Port-A-Cath on the left with the tip projecting to the atrial caval junction. Lungs and pleura: Lungs are clear. No pleural effusions or pneumothorax. Mediastinum: Mediastinal contours appear normal. Heart size is normal. Bones and chest wall: Left shoulder arthroplasty. No suspicious bony lesions. Overlying soft tissues appear unremarkable. IMPRESSION: No acute cardiopulmonary disease. Dictated by: Savanna Dominguez M.D. on 01/04/2019 at 15:17 Approved by: Savanna Dominguez M.D. on 01/04/2019 at 15:18 ECG Data Attestation: I personally reviewed and interpreted this ECG as follows: Prior ECG tracings: not available for review Interpretation: Sinus rhythm Ventricular rate of 91 Normal axis Normal QRS Normal QTC No ST T wave changes MDM Narrative Medical decision making narrative: Patient has a unremarkable EKG. Troponins negative x2. Chest x-ray is negative. Low suspicion for CVA. He asked multiple times for pain medication for his back. Eyes multiple times for multiple doses of Dilaudid giving it an different routes to include intramuscular and through his port. I did inform him that the emergency department does not treat chronic pain. He was given pain medication upon arrival. Informed him that he should talk with his primary doctor about further workup his chest pain to include a stress test. I do have some concern for drug-seeking behavior given his comments here in the ER. He was told he could return to the emergency department for worsening chest pain. Discharge Plan Departure Patient Disposition: Home Clinical Impression: Atypical chest pain Chronic low back pain Qualifiers: Back pain laterality: unspecified Sciatica presence: unspecified whether sciatica present Qualified Code(s): M54.5 - Low back pain Discharge Date/Time: 01/04/19 17:58 Instructions: DI for Atypical Chest Pain Activity Restrictions/Additional Instructions: I do recommend you talk with your primary doctor about the indications for referral to have a stress test. Unfortunately the emergency department does not treat chronic pain. Treatments for these conditions need to come from 1 provider such as a senior painter or your primary provider. Return to the emergency department for any new symptoms Prescriptions: No Action sumatriptan succinate 100 mg tablet 200 mg PO Q2-4H PRN (Reason: Migraine Headache) Qty: 12 RF: 0 sumatriptan succinate 6 mg/0.5 mL pen injector 1 dose SUBCUT PRN PRN (Reason: Migraine Headache) Qty: 10 RF: 0 Breo Ellipta 200 MCG/25 MCG blister with device 1 puff INH DAILY Qty: 0 RF: 0 Combivent Respimat 4 GM mist See Rx Instructions .ROUTE .COMPLEX MDD 6 Qty: 0 RF: 0 albuterol sulfate 1.25 MG/3 ML solution for nebulization 1.25 mg INH Q4HP PRN (Reason: Shortness Of Breath) Qty: 0 RF: 0 cyclobenzaprine 10 mg tablet 10 mg PO TID PRN (Reason: muscle spasm) Qty: 30 RF: 0 eszopiclone [Lunesta] 2 mg tablet 2 mg PO BEDTIME Qty: 14 RF: 0 metoprolol tartrate 25 mg tablet 25 mg PO BID Qty: 28 RF: 0 montelukast [Singulair] 10 mg tablet 10 mg PO BEDTIME Qty: 14 RF: 0 atorvastatin [Lipitor] 10 mg tablet 10 mg PO BEDTIME Qty: 30 RF: 3 levothyroxine 100 mcg tablet 100 mcg PO QAM Qty: 90 RF: 1 duloxetine [Cymbalta] 60 mg capsule,delayed release(DR/EC) 60 mg PO QNOON Qty: 30 RF: 2 bupropion HCl 300 mg tablet extended release 24 hr 300 mg PO QNOON Qty: 30 RF: 0 lamotrigine 200 mg tablet 200 mg PO BEDTIME Qty: 30 RF: 2 nortriptyline 10 mg capsule 10 mg PO BEDTIME Qty: 30 RF: 0 calcium citrate 250 mg calcium tablet 500 mg PO BID RF: 0 albuterol sulfate [Ventolin HFA] 90 MCG/PUFF HFA aerosol inhaler 1 puff INH SEE INSTRUCTIONS RF: 0 sumatriptan 20 mg/actuation spray,non-aerosol 20 mg NASAL Q2H PRN (Reason: Migraine Headache) RF: 0 ondansetron 4 mg tablet,disintegrating 4 mg PO Q6H PRN (Reason: nausea and vomiting) Qty: 20 RF: 0 clonazepam 2 mg tablet 2 mg PO BID RF: 0 liothyronine [Cytomel] 25 mcg tablet 12.5 mcg PO QAM RF: 0 clonazepam 1 mg tablet 1.5 mg PO QAM RF: 0 desonide 0.05 % cream 1 applic Topical PRN PRN (Reason: Inflammation) RF: 0 ketoconazole 2 % shampoo 1 applic Topical DAILY PRN (Reason: Skin Irritation) RF: 0 clobetasol 0.05 % ointment 1 applic Topical SUSA RF: 0 tamsulosin [Flomax] 0.4 mg capsule 0.4 mg PO QNOON RF: 0 multivitamin Tablet 1 tab PO DAILY RF: 0 Vitamin B-12 1 tab PO DAILY RF: 0 Eliquis 5 mg tablet 5 mg PO BID RF: 0 Ajovy 225 mg/1.5 mL syringe 225 mg SUBCUT QMONTH Qty: 1.5 RF: 11 Referrals: Eleazar Armstrong MD [Primary Care Provider] -
[2019-01-04] MEDS: HYDROCODONE/ACET 5/325 TABLET 1 TAB PO (15:12)
[2019-01-04 15:13] LABS: INR 1.1 (0.9-1.3); Prothrombin Time 12.9 SECONDS (10.1-12.7)
[2019-01-04 15:14] LABS: Alanine Aminotransferase 37 IU/L (21-72); Albumin 4.4 g/dL (3.5-5.0); Albumin Globulin Ratio 1.6 (1.0-2.8); Alkaline Phosphatase 118 U/L (38-126); Aspartate Aminotransferase 34 IU/L (17-59); BUN Creatinine Ratio 18.9 (6-22); Bilirubin Total 0.5 mg/dL (0.2-1.3); Blood Urea Nitrogen 17 mg/dL (9-20); Calcium 9.8 mg/dL (8.4-10.2); Carbon Dioxide 31 mmol/L (22-32); Chloride 99 mmol/L (98-107); Creatine Kinase 31 U/L (55-170); Estimated Glomerular Filt Rate > 60.0 mL/min (>60); Globulin 2.8 g/dL (1.7-4.1); Glucose 129 mg/dL (80-110); HEMOLYSIS < 15 (0-50); Lipase 100 U/L (23-300); Potassium 4.7 mmol/L (3.4-5.1); Sodium 139 mmol/L (137-145); Total Protein 7.2 g/dL (6.3-8.2)
[2019-01-04 15:26] LABS: Troponin I < 0.012 ng/mL (0.01-0.034)
[2019-01-04 15:58] VITALS: BP 133/83; PULSE 91; RESP 17; O2SAT 92
[2019-01-04] MEDS: HYDROMORPHONE 1 MG INJ IM (16:30)
[2019-01-04 16:37] VITALS: BP 121/75; PULSE 85; RESP 12; O2SAT 91
[2019-01-04 17:34] LABS: Troponin I < 0.012 ng/mL (0.01-0.034)
[2019-01-04 17:58] VITALS: BP 104/63; PULSE 85; RESP 13; O2SAT 95
== END 2019-01-04 17:58 | disposition home or self-care (01) ==
PROVIDERS: Emergency Provider Emergency Medicine; PCP Internal Medicine
DX: R07.89 Other chest pain (principal); M54.5 Low back pain
CPT/HCPCS: 36415; 71045; 80053; 82550; 83690; 84484; 85025; 85610; 93005; 93010; 96372; 99283; 99285; J1170; J1642

== ENCOUNTER 2019-01-22 16:33 | Emergency (ER) | payer MEDICARE, SELFPAY ==
[2018-10-11 14:03] VITALS: BMI 31.0
[2019-01-22 16:44] VITALS: PULSE 102; RESP 20; TEMP 36.1; O2SAT 98; BMI 33.6
--- NOTE | 2019-01-22 16:46 | DI.RAD.S_ITS ---
PROCEDURE: XR CHEST 1V INDICATIONS: chest pain TECHNIQUE: One view of the chest was acquired. COMPARISON: [facility], CR, XR CHEST 1V, 01/04/2019, 14:52. FINDINGS: Surgical changes and devices: Left shoulder arthroplasty. Left chest wall iain catheter, tip of which is at the cavoatrial junction. Low anterior cervical fusion. Lungs and pleura: Lungs are clear. No pleural effusions or pneumothorax. Mediastinum: Mediastinal contours appear normal. Heart size is normal. Bones and chest wall: No suspicious bony lesions. Overlying soft tissues appear unremarkable. IMPRESSION: No acute process. Dictated by: Comfort Lozano M.D. on 01/22/2019 at 17:32 Approved by: Comfort Lozano M.D. on 01/22/2019 at 17:34
--- NOTE | 2019-01-22 16:54 | ED_ITS ---
HPI - Chest Pain General Chief Complaint: Chest Pain Stated Complaint: CHEST PAIN Time Seen by Provider: 01/22/19 16:44 Source: patient Mode of arrival: Ambulatory Limitations: no limitations History of Present Illness HPI narrative: 63-year-old male here for evaluation of multiple symptoms. 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 He does have a history of asthma. He states that over the past several days/weeks he has become more dyspneic on exertion. He also is complaining of right-sided abdominal pain. He states he describes them as pinpoint sharp pains that come and go. He is not having them now. No chest pain. Related Data Home Medications Medication Instructions Recorded Confirmed Breo Ellipta 1 puff INH DAILY #0 12/03/16 01/22/19 Combivent Respimat See Rx Instructions .ROUTE 04/15/17 01/22/19 .COMPLEX #0 MDD 6 albuterol sulfate 1.25 mg INH Q4HP PRN #0 05/24/17 01/22/19 albuterol sulfate [Ventolin HFA] 1 puff INH SEE INSTRUCTIONS 08/22/17 01/22/19 Vitamin B-12 1 tab PO DAILY 02/21/18 01/22/19 clobetasol 1 applic TOPICAL SUSA 02/21/18 01/22/19 desonide 1 applic TOPICAL PRN PRN 02/21/18 01/22/19 ketoconazole 1 applic TOPICAL DAILY PRN 02/21/18 01/22/19 multivitamin 1 tab PO DAILY 02/21/18 01/22/19 calcium citrate 500 mg PO BID tab 03/28/18 01/22/19 apixaban 5 mg tablet 5 mg PO BID 05/30/18 01/22/19 sumatriptan succinate 6 mg/0.5 mL 1 dose SUBCUT PRN PRN #10 ml 08/11/18 01/22/19 subcutaneous pen injector prochlorperazine maleate 5 mg 5 mg PO BID PRN 01/12/19 01/22/19 tablet armodafinil 250 mg tablet 250 mg PO ONCE PRN 01/19/19 01/22/19 levothyroxine 100 mcg PO QAM 01/22/19 01/22/19 liothyronine 12.5 mcg PO DAILY 01/22/19 01/22/19 tamsulosin 0.4 mg PO DAILY 01/22/19 01/22/19 Previous Rx's Medication Instructions Recorded cyclobenzaprine 10 mg tablet 10 mg PO TID PRN #30 tab 01/09/18 eszopiclone 2 mg tablet 2 mg PO BEDTIME #14 tab 05/18/18 metoprolol tartrate 25 mg tablet 25 mg PO BID #28 tab 05/18/18 montelukast 10 mg tablet 10 mg PO BEDTIME #14 tab 05/18/18 fremanezumab-vfrm 225 mg/1.5 mL 225 mg SUBCUT QMONTH #1.5 ml 05/30/18 subcutaneous syringe atorvastatin 10 mg tablet 10 mg PO BEDTIME #30 tab 07/24/18 ondansetron 4 mg PO Q6H PRN #20 tab 10/09/18 nortriptyline 10 mg capsule 10 mg PO BEDTIME #30 cap 12/13/18 clonazepam 1 mg tablet 1.5 mg PO QAM #45 tab 01/09/19 clonazepam 2 mg tablet 2 mg PO BID #60 tab 01/09/19 sumatriptan succinate 100 mg tablet See Rx Instructions .ROUTE 01/11/19 .COMPLEX #30 tablet lamotrigine 200 mg tablet 100 mg PO BEDTIME #30 tab 01/12/19 sumatriptan 20 mg/actuation nasal See Rx Instructions .ROUTE 01/16/19 spray .COMPLEX #14 each lithium carbonate 300 mg capsule 300 mg PO BEDTIME #30 cap 01/19/19 bupropion HCl 300 mg 24 hr tablet, 300 mg PO QNOON #30 tab 01/22/19 extended release duloxetine 60 mg capsule,delayed 60 mg PO QNOON #30 cap 01/22/19 release Allergies Allergy/AdvReac Type Severity Reaction Status Date / Time doxycycline [DOXYCYCLINE] Allergy Mild ITCHING Verified 01/22/19 16:44 ketorolac [KETOROLAC] Allergy Unknown Verified 01/22/19 16:44 NSAIDS (Non-Steroidal AdvReac Unknown TO AVOID Verified 01/22/19 16:44 Anti-Inflamma R/T [NSAIDS (NON-STEROIDAL GASTRIC ANTI-INFLAMMA] BYPASS controlled substance AdvReac Uncoded 01/22/19 17:34 agreement Review of Systems Constitutional Constitutional: Denies headache(s) ENT Ears, Nose, Mouth, and Throat: Denies headache(s) Cardiovascular Cardiovascular: Denies chest pain, Denies edema, Reports dyspnea and Reports dyspnea on exertion Respiratory Respiratory: Reports dyspnea and Reports dyspnea on exertion Gastrointestinal Gastrointestinal: Reports abdominal pain, Denies change in stool character, Denies nausea and Denies vomiting Genitourinary Genitourinary: Denies dysuria Musculoskeletal Musculoskeletal: Denies myalgias and Denies arthralgias Integumentary/Breasts Skin/Breast: Denies rash Neurologic Neurologic: Denies behavioral changes and Denies headache(s) Psychiatric Psychiatric: Denies behavioral changes Hematologic/Lymphatic Hematologic/Lymphatic: Denies easy bleeding and Denies easy bruising Patient History Medical History Medical History Anxiety (Chronic) Chronic left shoulder pain (Chronic 01/20/16) Chronic obstructive pulmonary disease (Chronic 08/05/17) Chronic pain syndrome (Chronic 11/08/16) Cognitive disorder (Chronic 04/24/14) 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) H/O migraine (Inactive) H/O renal calculi (Inactive) History of stroke (Inactive) Hypersomnia (Chronic) Hypothyroidism (Chronic) Insomnia (Chronic) Iron deficiency (Chronic) Major depressive disorder, recurrent episode, severe (Chronic) Mixed hyperlipidemia (Chronic) Narcotic dependence (Resolved 09/01/16) Obesity with body mass index (BMI) of 30.0 to 39.9 (Chronic 12/06/14) Other iron deficiency anemia (Chronic 02/03/15) Paroxysmal atrial fibrillation (Chronic) Patent foramen ovale (Resolved) Pneumonia (Resolved) Post traumatic stress disorder (PTSD) (Chronic) Psoriasis (Chronic) S/P ECT (electroconvulsive therapy) (Acute) Sarcoidosis (Chronic) Sleep apnea (Ruled-out) Vitamin B12 deficiency (Chronic 02/19/11) Social History Social History marital status: details: to Milka, lives in [place] number of children: 3 household members: spouse lives independently: Yes caregiver/support person: No housing: house pets and animals: Yes education level: college occupational status: other 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: [employer] travel history: over 6 months ago and other Smoking Status: Former smoker Tobacco: How many years used: 10 Smokeless tobacco user: other quit status: quit date established second hand exposure: Yes (Childhood) alcohol intake: current substance use type: does not use alcohol intake frequency: a few times a month Substance Use Type: does not use Exam Initial Vital Signs Initial Vital Signs: Vital Signs Temperature 96.9 F L 01/22/19 16:44 Pulse Rate 102 H 01/22/19 16:44 Respiratory Rate 20 01/22/19 16:44 Pulse Oximetry 98 01/22/19 16:44 Const General: cooperative and comfortable Orientation: alert and awake HENMT Head: normal to inspection and normocephalic Resp Effort & Inspection: normal respiratory effort Auscultation: clear to auscultation bilaterally Cardio Rate: regular rate Rhythm: regular rhythm Pulses: radial pulses present GI Inspection: non-distended Palpation: soft, No firm and No tender Skin Lesions: no lesions Rashes: no rashes Neuro General: alert, awake and oriented x3 Cognition: normal cognition Speech: speech normal Extrem General: normal to inspection and capillary refill normal Psych Appearance: grossly normal and well kempt Course Orders Ordered: ED Orders 01/22/19 16:46 XR chest 1V Stat 01/22/19 16:49 EKG-12 Lead Stat 01/22/19 16:51 B Type Natriuretic Peptide Stat Complete Blood Count AUTO DIFF Stat Comprehensive Metabolic Panel Stat Lipase Stat Partial Thromboplastin Time Stat Prothrombin Time INR Stat Troponin & CK Cardiac Panel Stat Vital Signs Vital signs: Vital Signs - 8 hr 01/22/19 16:44 01/22/19 16:55 01/22/19 17:30 Temperature 96.9 F L Pulse Rate 102 H 94 H 80 Respiratory Rate 20 18 18 Blood Pressure [Right Arm] 137/89 99/70 Pulse Oximetry 98 98 98 MDM - Chest Pain Lab Data Attestation: I reviewed the patient's lab results. Result diagrams: 01/22/19 16:51 01/22/19 16:51 Labs: Lab Results 01/22/19 01/22/19 01/22/19 Range/Units 16:51 16:51 16:51 WBC 9.5 (4.5-11.0) X10^3/uL RBC 5.19 (4.5-5.9) X10^6/uL Hgb 16.1 (13.5-17.5) g/dL Hct 47.1 (41-53) % MCV 90.7 (80-100) fL MCH 31.0 (26-34) PG MCHC 34.2 (30-36) % RDW 14.5 (11.6-14.8) % Plt Count 200 (150-400) X10^3/uL Neut % (Auto) 70.0 (50-75) % Lymph % (Auto) 18.5 L (25-40) % [place] % (Auto) 10.0 (3-14) % Eos % (Auto) 0.7 L (2-4) % Baso % (Auto) 0.8 (0-2) % Neut # (Auto) 6700 (7836-2681) /uL Lymph # (Auto) 1800 (0792-5584) /uL [place] # (Auto) 1000 H (0-900) /uL Eos # (Auto) 100 (0-450) /uL Baso # (Auto) 100 (0-100) /uL PT 12.0 (10.1-12.7) SECONDS INR 1.0 (0.9-1.3) APTT 70 H D (26.4-36.2) SECONDS Sodium 140 (137-145) mmol/L Potassium 4.0 (3.4-5.1) mmol/L Chloride 103 (98-107) mmol/L Carbon Dioxide 30 (22-32) mmol/L BUN 14 (9-20) mg/dL Creatinine 1.00 (0.66-1.25) mg/dL Estimated GFR > 60.0 (>60) mL/min BUN/Creatinine Ratio 14.0 (6-22) Glucose 114 H (80-110) mg/dL Calcium 9.6 (8.4-10.2) mg/dL Total Bilirubin 0.5 (0.2-1.3) mg/dL AST 38 (17-59) IU/L ALT 47 (21-72) IU/L Alkaline Phosphatase 93 (38-126) U/L Total Creatine Kinase 22 L (55-170) U/L CK-MB (CK-2) TNP CK-MB (CK-2) Rel Index TNP Troponin I < 0.012 (0.01-0.034) ng/mL B-Natriuretic Peptide (<100) Total Protein 7.1 (6.3-8.2) g/dL Albumin 4.4 (3.5-5.0) g/dL Globulin 2.7 (1.7-4.1) g/dL Albumin/Globulin Ratio 1.6 (1.0-2.8) Lipase 132 (23-300) U/L 01/22/ Range/Units 16:51 WBC (4.5-11.0) X10^3/uL RBC (4.5-5.9) X10^6/uL Hgb (13.5-17.5) g/dL Hct (41-53) % MCV (80-100) fL MCH (26-34) PG MCHC (30-36) % RDW (11.6-14.8) % Plt Count (150-400) X10^3/uL Neut % (Auto) (50-75) % Lymph % (Auto) (25-40) % [place] % (Auto) (3-14) % Eos % (Auto) (2-4) % Baso % (Auto) (0-2) % Neut # (Auto) (4370-2363) /uL Lymph # (Auto) (1019-3615) /uL [place] # (Auto) (0-900) /uL Eos # (Auto) (0-450) /uL Baso # (Auto) (0-100) /uL PT (10.1-12.7) SECONDS INR (0.9-1.3) APTT (26.4-36.2) SECONDS Sodium (137-145) mmol/L Potassium (3.4-5.1) mmol/L Chloride (98-107) mmol/L Carbon Dioxide (22-32) mmol/L BUN (9-20) mg/dL Creatinine (0.66-1.25) mg/dL Estimated GFR (>60) mL/min BUN/Creatinine Ratio (6-22) Glucose (80-110) mg/dL Calcium (8.4-10.2) mg/dL Total Bilirubin (0.2-1.3) mg/dL AST (17-59) IU/L ALT (21-72) IU/L Alkaline Phosphatase (38-126) U/L Total Creatine Kinase (55-170) U/L CK-MB (CK-2) CK-MB (CK-2) Rel Index Troponin I (0.01-0.034) ng/mL B-Natriuretic Peptide < 100 (<100) Total Protein (6.3-8.2) g/dL Albumin (3.5-5.0) g/dL Globulin (1.7-4.1) g/dL Albumin/Globulin Ratio (1.0-2.8) Lipase (23-300) U/L Imaging Data Chest x-ray: Radiologist's impression: [address] [address] XRay Report Signed Patient: Mario Hemphill [facility]#: [id number] : 4Acct:[id number] Age/Sex: 63 / MDate of Service: 01/22/19 Loc: ED Accession Number: [id number] Procedure: XR chest 1V Ordering Provider: Cali Todd D.O. PROCEDURE: XR CHEST 1V INDICATIONS: chest pain TECHNIQUE: One view of the chest was acquired. COMPARISON: [facility], , XR CHEST 1V, 01/04/2019, 14:52. FINDINGS: Surgical changes and devices: Left shoulder arthroplasty. Left chest wall iain catheter, tip of which is at the cavoatrial junction. Low anterior cervical fusion. Lungs and pleura: Lungs are clear. No pleural effusions or pneumothorax. Mediastinum: Mediastinal contours appear normal. Heart size is normal. Bones and chest wall: No suspicious bony lesions. Overlying soft tissues appear unremarkable. IMPRESSION: No acute process. Dictated by: Comfort Lozano M.D. on 01/22/2019 at 17:32 Approved by: Comfort Lozano M.D. on 01/22/2019 at 17:34 ECG Data Attestation: I personally reviewed and interpreted this ECG as follows: Prior ECG tracings: not available for review Interpretation: Sinus rhythm Ventricular rate of 98 Normal axis Normal QRS Normal QTC No ST T wave changes MDM Narrative Medical decision making narrative: Patient has a benign exam today. Troponins negative. EKG is unremarkable. BNP in chest X unremarkable. Lungs are clear. He does not have any abdominal pain today. He is on apixaban. I have low suspicion for PE. I do not feel we need to workup his abdominal pain further. He did ask nursing staff for pain medication but did not ask me. He was given return precautions and follow-up instructions. Expressed understanding agreement plan. Discharge Plan Departure Patient Disposition: Home Clinical Impression: SMITH (dyspnea on exertion) Abdominal pain Qualifiers: Abdominal location: unspecified location Qualified Code(s): R10.9 - Unspecified abdominal pain Instructions: DI for Abdominal Pain-Adult, DI for Shortness of Breath Activity Restrictions/Additional Instructions: Continue all of your medications as directed. Keep all of your scheduled medical appointments. Talk with your primary doctor about any potential workup for abdominal pain if this continues. Return to the emergency department for any new symptoms Prescriptions: No Action sumatriptan succinate 6 mg/0.5 mL pen injector 1 dose SUBCUT PRN PRN (Reason: Migraine Headache) Qty: 10 RF: 0 prochlorperazine maleate [Compazine] 5 mg tablet 5 mg PO BID PRN (Reason: Nausea) RF: 0 lamotrigine 200 mg tablet 100 mg PO BEDTIME Qty: 30 RF: 1 armodafinil [Nuvigil] 250 mg tablet 250 mg PO ONCE PRN (Reason: as directed) RF: 0 lithium carbonate 300 mg capsule 300 mg PO BEDTIME Qty: 30 RF: 3 Breo Ellipta 200 MCG/25 MCG blister with device 1 puff INH DAILY Qty: 0 RF: 0 Combivent Respimat 4 GM mist See Rx Instructions .ROUTE .COMPLEX MDD 6 Qty: 0 RF: 0 albuterol sulfate 1.25 MG/3 ML solution for nebulization 1.25 mg INH Q4HP PRN (Reason: Shortness Of Breath) Qty: 0 RF: 0 cyclobenzaprine 10 mg tablet 10 mg PO TID PRN (Reason: muscle spasm) Qty: 30 RF: 0 eszopiclone [Lunesta] 2 mg tablet 2 mg PO BEDTIME Qty: 14 RF: 0 metoprolol tartrate 25 mg tablet 25 mg PO BID Qty: 28 RF: 0 montelukast [Singulair] 10 mg tablet 10 mg PO BEDTIME Qty: 14 RF: 0 atorvastatin [Lipitor] 10 mg tablet 10 mg PO BEDTIME Qty: 30 RF: 3 clonazepam 1 mg tablet 1.5 mg PO QAM Qty: 45 RF: 0 clonazepam 2 mg tablet 2 mg PO BID Qty: 60 RF: 0 sumatriptan succinate 100 mg tablet See Rx Instructions .ROUTE .COMPLEX Qty: 30 RF: 5 sumatriptan 20 mg/actuation spray,non-aerosol See Rx Instructions .ROUTE .COMPLEX Qty: 14 RF: 2 bupropion HCl 300 mg tablet extended release 24 hr 300 mg PO QNOON Qty: 30 RF: 0 duloxetine [Cymbalta] 60 mg capsule,delayed release(DR/EC) 60 mg PO QNOON Qty: 30 RF: 2 nortriptyline 10 mg capsule 10 mg PO BEDTIME Qty: 30 RF: 0 calcium citrate 250 mg calcium tablet 500 mg PO BID RF: 0 albuterol sulfate [Ventolin HFA] 90 MCG/PUFF HFA aerosol inhaler 1 puff INH SEE INSTRUCTIONS RF: 0 ondansetron 4 mg tablet,disintegrating 4 mg PO Q6H PRN (Reason: nausea and vomiting) Qty: 20 RF: 0 liothyronine 25 mcg tablet 12.5 mcg PO DAILY RF: 0 levothyroxine 100 mcg tablet 100 mcg PO QAM RF: 0 tamsulosin 0.4 mg capsule 0.4 mg PO DAILY RF: 0 desonide 0.05 % cream 1 applic Topical PRN PRN (Reason: Inflammation) RF: 0 ketoconazole 2 % shampoo 1 applic Topical DAILY PRN (Reason: Skin Irritation) RF: 0 clobetasol 0.05 % ointment 1 applic Topical SUSA RF: 0 multivitamin Tablet 1 tab PO DAILY RF: 0 Vitamin B-12 1 tab PO DAILY RF: 0 Eliquis 5 mg tablet 5 mg PO BID RF: 0 Ajovy 225 mg/1.5 mL syringe 225 mg SUBCUT QMONTH Qty: 1.5 RF: 11 Referrals: Eleazar Armstrong MD [Primary Care Provider] -
[2019-01-22 16:55] VITALS: BP 137/89; PULSE 94; RESP 18; O2SAT 98
[2019-01-22 16:58] LABS: Add Manual Diff / Slide Review NO; Basophils Absolute Auto 100 /uL (0-100); Basophils Percent Auto 0.8 % (0-2); Eosinophils Absolute Auto 100 /uL (0-450); Eosinophils Percent Auto 0.7 % (2-4); Hematocrit 47.1 % (41-53); Hemoglobin 16.1 g/dL (13.5-17.5); Lymphocytes Absolute Auto 1800 /uL (1100-4500); Lymphocytes Percent Auto 18.5 % (25-40); Mean Corpuscular HGB Conc 34.2 % (30-36); Mean Corpuscular Volume 90.7 fL (80-100); Monocytes Absolute Auto 1000 /uL (0-900); Neutrophils Absolute Auto 6700 /uL (1500-7000); Platelet Count 200 X10^3/uL (150-400); Red Blood Cell Count 5.19 X10^6/uL (4.5-5.9); Red Cell Distribution Width 14.5 % (11.6-14.8); White Blood Cell Count 9.5 X10^3/uL (4.5-11.0)
[2019-01-22 17:09] LABS: PTT Partial Thromboplastin Tim 70 SECONDS (26.4-36.2)
[2019-01-22 17:11] LABS: Alanine Aminotransferase 47 IU/L (21-72); Albumin 4.4 g/dL (3.5-5.0); Albumin Globulin Ratio 1.6 (1.0-2.8); Alkaline Phosphatase 93 U/L (38-126); Aspartate Aminotransferase 38 IU/L (17-59); Bilirubin Total 0.5 mg/dL (0.2-1.3); Blood Urea Nitrogen 14 mg/dL (9-20); Calcium 9.6 mg/dL (8.4-10.2); Carbon Dioxide 30 mmol/L (22-32); Chloride 103 mmol/L (98-107); Creatine Kinase 22 U/L (55-170); Estimated Glomerular Filt Rate > 60.0 mL/min (>60); Globulin 2.7 g/dL (1.7-4.1); Glucose 114 mg/dL (80-110); HEMOLYSIS < 15 (0-50); Lipase 132 U/L (23-300); Sodium 140 mmol/L (137-145); Total Protein 7.1 g/dL (6.3-8.2)
[2019-01-22 17:23] LABS: Troponin I < 0.012 ng/mL (0.01-0.034)
[2019-01-22 17:30] VITALS: BP 99/70; PULSE 80; RESP 18; O2SAT 98
[2019-01-22 17:58] LABS: B Type Natriuretic Peptide < 100 (<100)
[2019-01-22 18:40] VITALS: BP 123/83; PULSE 75; RESP 15; O2SAT 94
== END 2019-01-22 18:40 | disposition home or self-care (01) ==
PROVIDERS: Emergency Provider Emergency Medicine; PCP Internal Medicine
DX: R06.09 Other forms of dyspnea (principal); R10.9 Unspecified abdominal pain
CPT/HCPCS: 36415; 71045; 80053; 82550; 83690; 83880; 84484; 85025; 85610; 85730; 93005; 96374; 99283; 99285; J1642

== ENCOUNTER → 2019-02-06 14:10 | Outpatient (CLI) | payer MEDICARE, SELFPAY ==
[2018-10-11 14:03] VITALS: BMI 31.0
[2019-02-06 15:02] LABS: Lithium 0.3 mmol/L (0.6-1.2)
[2019-02-06 15:04] LABS: HEMOLYSIS < 15 (0-50); Iron 186 ug/dL (49-181)
[2019-02-06 15:10] LABS: BUN Creatinine Ratio 18.2 (6-22); Blood Urea Nitrogen 20 mg/dL (9-20); Calcium 10.3 mg/dL (8.4-10.2); Carbon Dioxide 32 mmol/L (22-32); Chloride 100 mmol/L (98-107); Estimated Glomerular Filt Rate > 60.0 mL/min (>60); Glucose 99 mg/dL (80-110); HEMOLYSIS 18 (0-50); Potassium 5.2 mmol/L (3.4-5.1); Sodium 139 mmol/L (137-145)
[2019-02-06 15:14] LABS: Percent Iron Saturation 54 % (20-50); Total Iron Binding Capacity 344 ug/dL (261-462); Transferrin 286 mg/dL (206-381)
== END ==
PROVIDERS: Family Provider Internal Medicine; PCP Internal Medicine; Visit Provider Psychiatry & Neurology Psychiatry
DX: F33.2 Major depressive disorder, recurrent severe without psychotic features (principal); E61.1 Iron deficiency
CPT/HCPCS: 36415; 80048; 80178; 83540; 83550

== ENCOUNTER 2019-04-01 19:15 | Emergency (ER) | payer MEDICARE, SELFPAY ==
[2018-10-11 14:03] VITALS: BMI 31.0
[2019-04-01 19:15] VITALS: BP 127/69; PULSE 92; RESP 20; TEMP 36.6; O2SAT 97; BMI 34.4
--- NOTE | 2019-04-01 19:20 | DI.RAD.S_ITS ---
PROCEDURE: XR CHEST 1V INDICATIONS: chest pain TECHNIQUE: One view of the chest was acquired. COMPARISON: [facility], CR, XR CHEST 1V, 01/22/2019, 17:22. [facility], CR, XR CHEST 1V, 01/04/2019, 14:52. FINDINGS: Surgical changes and devices: None. Lungs and pleura: Lungs are clear. No pleural effusions or pneumothorax. Mediastinum: Mediastinal contours appear normal. Heart size is normal. Bones and chest wall: No suspicious bony lesions. Overlying soft tissues appear unremarkable. IMPRESSION: Normal for age, source of current chest pain symptoms is not seen. Dictated by: Yao Vargas M.D. on 04/01/2019 at 20:29 Approved by: Yao Vargas M.D. on 04/01/2019 at 20:29
--- NOTE | 2019-04-01 19:44 | ED.CHESTPAIN ---
HPI - Chest Pain General Chief Complaint: Chest Pain Stated Complaint: chest pain Time Seen by Provider: 04/01/19 19:17 Source: patient Mode of arrival: Wheelchair Limitations: no limitations History of Present Illness HPI narrative: 64-year-old male here for evaluation of right-sided chest pain. Patient states that it started earlier today when he was driving home from a football game. He states that the pain is sharp. On the right-hand side. Not reproducible with palpation. Does get some worse when he takes a deep breath. No radiation. Has not tried anything for symptoms prior to arrival Related Data Home Medications Medication Instructions Recorded Confirmed Breo Ellipta 1 puff INH DAILY #0 12/03/16 03/12/19 Combivent Respimat See Rx Instructions .ROUTE 04/15/17 03/12/19 .COMPLEX #0 MDD 6 albuterol sulfate 1.25 mg INH Q4HP PRN #0 05/24/17 03/12/19 albuterol sulfate [Ventolin HFA] 1 puff INH SEE INSTRUCTIONS 08/22/17 03/12/19 Vitamin B-12 1 tab PO DAILY 02/21/18 03/12/19 clobetasol 1 applic TOPICAL SUSA 02/21/18 03/12/19 desonide 1 applic TOPICAL PRN PRN 02/21/18 03/12/19 multivitamin 1 tab PO DAILY 02/21/18 03/12/19 calcium citrate 500 mg PO BID tab 03/28/18 03/12/19 apixaban 5 mg tablet 5 mg PO BID 05/30/18 03/12/19 sumatriptan succinate 6 mg/0.5 mL 1 dose SUBCUT PRN PRN #10 ml 08/11/18 03/12/19 subcutaneous pen injector armodafinil 250 mg tablet 250 mg PO ONCE PRN 01/19/19 03/12/19 levothyroxine 100 mcg PO QAM 01/22/19 03/12/19 liothyronine 12.5 mcg PO DAILY 01/22/19 03/12/19 tamsulosin 0.4 mg PO DAILY 01/22/19 03/12/19 Previous Rx's Medication Instructions Recorded cyclobenzaprine 10 mg tablet 10 mg PO TID PRN #30 tab 01/09/18 montelukast 10 mg tablet 10 mg PO BEDTIME #14 tab 05/18/18 fremanezumab-vfrm 225 mg/1.5 mL 225 mg SUBCUT QMONTH #1.5 ml 05/30/18 subcutaneous syringe ondansetron 4 mg PO Q6H PRN #20 tab 10/09/18 sumatriptan succinate 100 mg tablet See Rx Instructions .ROUTE 01/11/19 .COMPLEX #30 tablet lamotrigine 200 mg tablet 100 mg PO BEDTIME #30 tab 01/12/19 sumatriptan 20 mg/actuation nasal See Rx Instructions .ROUTE 01/16/19 spray .COMPLEX #14 each prochlorperazine maleate 10 mg 10 mg PO Q8H PRN #60 tab 02/06/19 tablet eszopiclone 2 mg tablet 2 mg PO BEDTIME #14 tab 02/12/19 clonazepam 1 mg tablet 1.5 mg PO QAM #45 tab 03/05/19 clonazepam 2 mg tablet 2 mg PO BID #60 tab 03/05/19 lidocaine 5 % topical patch 1 patch TOP .COMPLEX #15 each 03/06/19 atorvastatin 10 mg tablet 10 mg PO BEDTIME #90 tab 03/07/19 metoprolol tartrate 25 mg tablet 25 mg PO BID #180 tab 03/07/19 nortriptyline 10 mg capsule See Rx Instructions .ROUTE 03/07/19 .COMPLEX #90 cap duloxetine 60 mg capsule,delayed 60 mg PO BID #60 cap 03/12/19 release lithium carbonate 300 mg capsule 600 mg PO BEDTIME #60 cap 03/12/19 ketoconazole 2 % shampoo See Rx Instructions .ROUTE 03/16/19 .COMPLEX #360 milliliter bupropion HCl 300 mg 24 hr tablet, See Rx Instructions .ROUTE 03/19/19 extended release .COMPLEX #90 tab Allergies Allergy/AdvReac Type Severity Reaction Status Date / Time doxycycline [DOXYCYCLINE] Allergy Mild ITCHING Verified 03/12/19 11:21 ketorolac [KETOROLAC] Allergy Unknown Verified 03/12/19 11:21 NSAIDS (Non-Steroidal AdvReac Unknown TO AVOID Verified 03/12/19 11:21 Anti-Inflamma R/T [NSAIDS (NON-STEROIDAL GASTRIC ANTI-INFLAMMA] BYPASS controlled substance AdvReac Uncoded 03/12/19 11:21 agreement Review of Systems Constitutional Constitutional: Denies fever(s) Cardiovascular Cardiovascular: Reports chest pain and Denies dyspnea Respiratory Respiratory: Denies dyspnea Gastrointestinal Gastrointestinal: Denies abdominal pain, Denies nausea and Denies vomiting Genitourinary Genitourinary: Denies dysuria Musculoskeletal Musculoskeletal: Denies myalgias and Denies arthralgias Integumentary/Breasts Skin/Breast: Denies rash Hematologic/Lymphatic Comments: On apixaban Patient History Medical History Anxiety (Chronic) Chronic left shoulder pain (Chronic 01/20/16) Chronic obstructive pulmonary disease (Chronic 08/05/17) Chronic pain syndrome (Chronic 11/08/16) Cognitive disorder (Chronic 04/24/14) 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) H/O migraine (Inactive) H/O renal calculi (Inactive) History of stroke (Inactive) Hypersomnia (Chronic) Hypothyroidism (Chronic) Insomnia (Chronic) Iron deficiency (Chronic) Major depressive disorder, recurrent episode, severe (Chronic) Mixed hyperlipidemia (Chronic) Narcotic dependence (Resolved 09/01/16) Obesity with body mass index (BMI) of 30.0 to 39.9 (Chronic 12/06/14) Other iron deficiency anemia (Chronic 02/03/15) Paroxysmal atrial fibrillation (Chronic) Patent foramen ovale (Resolved) Pneumonia (Resolved) Post traumatic stress disorder (PTSD) (Chronic) Psoriasis (Chronic) S/P ECT (electroconvulsive therapy) (Acute) Sarcoidosis (Chronic) Sleep apnea (Ruled-out) Vitamin B12 deficiency (Chronic 02/19/11) Surgical History History of gastric bypass (Inactive ~2003) History of Cris-en-Y gastric bypass (Inactive ~2003) History of total shoulder replacement (Inactive ~12/2015) S/P laparoscopic cholecystectomy (Inactive 10/18/18) S/P lumbar laminectomy (Inactive ~10/2017) Family History Father No problems noted. Mother No problems noted. 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 [employer]: [employer] travel history: over 6 months ago and other Smoking Status: Former smoker Tobacco: How many years used: 10 Smokeless tobacco user: other quit status: quit date established second hand exposure: Yes (Childhood) alcohol intake: current substance use type: does not use Smoking Status: Former smoker alcohol intake frequency: a few times a month Substance Use Type: does not use Exam Initial Vital Signs Initial Vital Signs: Vital Signs Temperature 97.9 F 04/01/19 19:15 Pulse Rate 92 H 04/01/19 19:15 Respiratory Rate 20 04/01/19 19:15 Blood Pressure 127/69 04/01/19 19:15 Pulse Oximetry 97 04/01/19 19:15 Const General: cooperative, comfortable and well developed Orientation: alert, awake and oriented x3 HENMT Head: normal to inspection and normocephalic Chest Chest: No crepitus and No tenderness Resp Effort & Inspection: normal respiratory effort Auscultation: clear to auscultation bilaterally Cardio Rate: regular rate Rhythm: regular rhythm Skin Lesions: no lesions Rashes: no rashes Neuro General: alert and awake Cognition: normal cognition Speech: speech normal Extrem General: normal to inspection and capillary refill normal Psych Appearance: grossly normal and well kempt Course Orders Ordered: ED Orders 04/01/19 19:20 XR chest 1V Stat 04/01/19 19:35 EKG-12 Lead Stat 04/01/19 20:04 B Type Natriuretic Peptide Stat Complete Blood Count AUTO DIFF Stat Comprehensive Metabolic Panel Stat Lipase Stat Partial Thromboplastin Time Stat Prothrombin Time INR Stat Troponin I Stat Vital Signs Vital signs: Vital Signs - 8 hr 04/01/19 19:15 04/01/19 20:52 04/01/19 21:10 Temperature 97.9 F Pulse Rate 92 H 83 86 Respiratory Rate 20 13 16 Blood Pressure 127/69 109/64 Blood Pressure [Left Arm] 109/64 Pulse Oximetry 97 97 100 MDM - Chest Pain Medical Records Data Attestation: I reviewed the patient's medical records. Lab Data Attestation: I reviewed the patient's lab results. Result diagrams: 04/01/19 20:04 04/01/19 20:04 Labs: Lab Results 1204/01/19 04/01/19 Range/Units 20:04 20:04 20:04 WBC 10.9 (4.5-11.0) X10^3/uL RBC 4.96 (4.5-5.9) X10^6/uL Hgb 15.7 (13.5-17.5) g/dL Hct 46.6 (41-53) % MCV 93.8 (80-100) fL MCH 31.6 (26-34) PG MCHC 33.7 (30-36) % RDW 15.2 H (11.6-14.8) % Plt Count 176 (150-400) X10^3/uL Neut % (Auto) 68.9 (50-75) % Lymph % (Auto) 20.2 L (25-40) % Dane % (Auto) 9.8 (3-14) % Eos % (Auto) 0.7 L (2-4) % Baso % (Auto) 0.4 (0-2) % Neut # (Auto) 7500 H (1844-6590) /uL Lymph # (Auto) 2200 (9330-2992) /uL Dane # (Auto) 1100 H (0-900) /uL Eos # (Auto) 100 (0-450) /uL Baso # (Auto) 0 (0-100) /uL PT 12.9 H (10.1-12.7) SECONDS INR 1.1 (0.9-1.3) APTT 33 D (26.4-36.2) SECONDS Sodium 135 L (137-145) mmol/L Potassium 4.4 (3.4-5.1) mmol/L Chloride 99 (98-107) mmol/L Carbon Dioxide 28 (22-32) mmol/L BUN 27 H (9-20) mg/dL Creatinine 1.10 (0.66-1.25) mg/dL Estimated GFR > 60.0 (>60) mL/min BUN/Creatinine Ratio 24.5 H (6-22) Glucose 95 (80-110) mg/dL Calcium 9.0 (8.4-10.2) mg/dL Total Bilirubin 0.7 (0.2-1.3) mg/dL AST 135 H (17-59) IU/L ALT 211 H (<50) IU/L Alkaline Phosphatase 118 (38-126) U/L Troponin I < 0.012 (0.01-0.034) ng/mL B-Natriuretic Peptide < 100 (<100) Total Protein 6.6 (6.3-8.2) g/dL Albumin 4.1 (3.5-5.0) g/dL Globulin 2.5 (1.7-4.1) g/dL Albumin/Globulin Ratio 1.6 (1.0-2.8) Lipase 154 (23-300) U/L Imaging Data Chest x-ray: Radiologist's impression: [address] [address] XRay Report Signed Patient: Mario Hemphill [facility]#: [id number] : 4Acct:[id number] Age/Sex: 64 / MDate of Service: 04/01/19 Loc: ED Accession Number: [id number] Procedure: XR chest 1V Ordering Provider: Cali Todd D.O. PROCEDURE: XR CHEST 1V INDICATIONS: chest pain TECHNIQUE: One view of the chest was acquired. COMPARISON: [facility], , XR CHEST 1V, 01/22/2019, 17:22. [facility], , XR CHEST 1V, 01/04/2019, 14:52. FINDINGS: Surgical changes and devices: None. Lungs and pleura: Lungs are clear. No pleural effusions or pneumothorax. Mediastinum: Mediastinal contours appear normal. Heart size is normal. Bones and chest wall: No suspicious bony lesions. Overlying soft tissues appear unremarkable. IMPRESSION: Normal for age, source of current chest pain symptoms is not seen. Dictated by: Yao Vargas M.D. on 04/01/2019 at 20:29 Approved by: Yao Vargas M.D. on 04/01/2019 at 20:29 ECG Data Attestation: I personally reviewed and interpreted this ECG as follows: Prior ECG tracings: not available for review Interpretation: Sinus rhythm Ventricular rate 87 Normal axis Normal QRS Normal QTC No ST T wave changes MDM Narrative Medical decision making narrative: A right-sided chest pain. EKG is unremarkable. Chest x-ray is unremarkable. Low suspicion for PE given history and physical. Low suspicion for ACS given history and physical. Hold on further workup for now. Have the patient contact his primary provider for follow-up. He's given return precautions. He expressed understanding and agreement plan. Discharge Plan Departure Patient Disposition: Home Clinical Impression: Atypical chest pain Discharge Date/Time: 04/01/19 21:12 Instructions: DI for Atypical Chest Pain Activity Restrictions/Additional Instructions: Recommend that tomorrow you contact your primary care provider tomorrow to discuss your symptoms and to find out the results of your stress test. Return to the ER for any new symptoms. Prescriptions: No Action eszopiclone [Lunesta] 2 mg tablet 2 mg PO BEDTIME Qty: 14 RF: 0 sumatriptan succinate 6 mg/0.5 mL pen injector 1 dose SUBCUT PRN PRN (Reason: Migraine Headache) Qty: 10 RF: 0 lamotrigine 200 mg tablet 100 mg PO BEDTIME Qty: 30 RF: 1 armodafinil [Nuvigil] 250 mg tablet 250 mg PO ONCE PRN (Reason: as directed) RF: 0 lithium carbonate 300 mg capsule 600 mg PO BEDTIME Qty: 60 RF: 3 duloxetine [Cymbalta] 60 mg capsule,delayed release(DR/EC) 60 mg PO BID Qty: 60 RF: 3 Breo Ellipta 200 MCG/25 MCG blister with device 1 puff INH DAILY Qty: 0 RF: 0 Combivent Respimat 4 GM mist See Rx Instructions .ROUTE .COMPLEX MDD 6 Qty: 0 RF: 0 albuterol sulfate 1.25 MG/3 ML solution for nebulization 1.25 mg INH Q4HP PRN (Reason: Shortness Of Breath) Qty: 0 RF: 0 cyclobenzaprine 10 mg tablet 10 mg PO TID PRN (Reason: muscle spasm) Qty: 30 RF: 0 montelukast [Singulair] 10 mg tablet 10 mg PO BEDTIME Qty: 14 RF: 0 sumatriptan succinate 100 mg tablet See Rx Instructions .ROUTE .COMPLEX Qty: 30 RF: 5 sumatriptan 20 mg/actuation spray,non-aerosol See Rx Instructions .ROUTE .COMPLEX Qty: 14 RF: 2 clonazepam 1 mg tablet 1.5 mg PO QAM Qty: 45 RF: 0 clonazepam 2 mg tablet 2 mg PO BID Qty: 60 RF: 0 lidocaine [Lidoderm] 5 % adhesive patch,medicated 1 patch TOP .COMPLEX Qty: 15 RF: 3 atorvastatin [Lipitor] 10 mg tablet 10 mg PO BEDTIME Qty: 90 RF: 1 metoprolol tartrate 25 mg tablet 25 mg PO BID Qty: 180 RF: 1 nortriptyline 10 mg capsule See Rx Instructions .ROUTE .COMPLEX Qty: 90 RF: 3 ketoconazole 2 % shampoo See Rx Instructions .ROUTE .COMPLEX Qty: 360 RF: 0 bupropion HCl 300 mg tablet extended release 24 hr See Rx Instructions .ROUTE .COMPLEX Qty: 90 RF: 1 prochlorperazine maleate 10 mg tablet 10 mg PO Q8H PRN (Reason: nausea and vomiting) Qty: 60 RF: 4 calcium citrate 250 mg calcium tablet 500 mg PO BID RF: 0 albuterol sulfate [Ventolin HFA] 90 MCG/PUFF HFA aerosol inhaler 1 puff INH SEE INSTRUCTIONS RF: 0 ondansetron 4 mg tablet,disintegrating 4 mg PO Q6H PRN (Reason: nausea and vomiting) Qty: 20 RF: 0 liothyronine 25 mcg tablet 12.5 mcg PO DAILY RF: 0 levothyroxine 100 mcg tablet 100 mcg PO QAM RF: 0 tamsulosin 0.4 mg capsule 0.4 mg PO DAILY RF: 0 desonide 0.05 % cream 1 applic Topical PRN PRN (Reason: Inflammation) RF: 0 clobetasol 0.05 % ointment 1 applic Topical SUSA RF: 0 multivitamin Tablet 1 tab PO DAILY RF: 0 Vitamin B-12 1 tab PO DAILY RF: 0 Eliquis 5 mg tablet 5 mg PO BID RF: 0 Ajovy 225 mg/1.5 mL syringe 225 mg SUBCUT QMONTH Qty: 1.5 RF: 11 Referrals: Eleazar Armstrong MD [Primary Care Provider] -
[2019-04-01 20:17] LABS: Add Manual Diff / Slide Review NO; Basophils Absolute Auto 0 /uL (0-100); Basophils Percent Auto 0.4 % (0-2); Eosinophils Absolute Auto 100 /uL (0-450); Eosinophils Percent Auto 0.7 % (2-4); Hematocrit 46.6 % (41-53); Hemoglobin 15.7 g/dL (13.5-17.5); Lymphocytes Absolute Auto 2200 /uL (1100-4500); Lymphocytes Percent Auto 20.2 % (25-40); Mean Corpuscular HGB Conc 33.7 % (30-36); Mean Corpuscular Hemoglobin 31.6 PG (26-34); Mean Corpuscular Volume 93.8 fL (80-100); Monocytes Absolute Auto 1100 /uL (0-900); Monocytes Percent Auto 9.8 % (3-14); Neutrophils Absolute Auto 7500 /uL (1500-7000); Neutrophils Percent Auto 68.9 % (50-75); Platelet Count 176 X10^3/uL (150-400); Red Blood Cell Count 4.96 X10^6/uL (4.5-5.9); Red Cell Distribution Width 15.2 % (11.6-14.8); White Blood Cell Count 10.9 X10^3/uL (4.5-11.0)
[2019-04-01 20:18] LABS: INR 1.1 (0.9-1.3); Prothrombin Time 12.9 SECONDS (10.1-12.7)
[2019-04-01 20:21] LABS: PTT Partial Thromboplastin Tim 33 SECONDS (26.4-36.2)
[2019-04-01 20:23] LABS: Alanine Aminotransferase 211 IU/L (<50); Albumin 4.1 g/dL (3.5-5.0); Albumin Globulin Ratio 1.6 (1.0-2.8); Alkaline Phosphatase 118 U/L (38-126); Aspartate Aminotransferase 135 IU/L (17-59); BUN Creatinine Ratio 24.5 (6-22); Bilirubin Total 0.7 mg/dL (0.2-1.3); Blood Urea Nitrogen 27 mg/dL (9-20); Carbon Dioxide 28 mmol/L (22-32); Chloride 99 mmol/L (98-107); Estimated Glomerular Filt Rate > 60.0 mL/min (>60); Globulin 2.5 g/dL (1.7-4.1); Glucose 95 mg/dL (80-110); HEMOLYSIS < 15 (0-50); Lipase 154 U/L (23-300); Potassium 4.4 mmol/L (3.4-5.1); Sodium 135 mmol/L (137-145); Total Protein 6.6 g/dL (6.3-8.2)
[2019-04-01 20:33] LABS: B Type Natriuretic Peptide < 100 (<100)
[2019-04-01 20:40] LABS: Troponin I < 0.012 ng/mL (0.01-0.034)
[2019-04-01 20:52] VITALS: BP 109/64; PULSE 83; RESP 13; O2SAT 97
[2019-04-01 21:10] VITALS: BP 109/64; PULSE 86; RESP 16; O2SAT 100
== END 2019-04-01 21:12 | disposition home or self-care (01) ==
PROVIDERS: Emergency Provider Emergency Medicine; Family Provider Internal Medicine; PCP Internal Medicine
DX: R07.89 Other chest pain (principal)
CPT/HCPCS: 36415; 71045; 80053; 83690; 83880; 84484; 85025; 85610; 85730; 93005; 93010; 99284; 99285; J1642

== ENCOUNTER 2019-04-05 16:13 | Emergency (ER) | payer MEDICARE, SELFPAY ==
[2018-10-11 14:03] VITALS: BMI 31.0
[2019-04-05 16:59] VITALS: BP 133/88; PULSE 86; RESP 16; TEMP 36.8; O2SAT 96; BMI 34.4
--- NOTE | 2019-04-05 18:00 | ED.BACK ---
HPI - Back Pain/Injury General Chief Complaint: Back Pain/Injury Stated Complaint: states severe back pain x6 days Time Seen by Provider: 04/05/19 18:00 Source: patient Mode of arrival: Ambulatory Limitations: no limitations History of Present Illness HPI Narrative: 64M former smoker with history of back pain and surgery presents with the chief complaint of severe Left Lumbar pain after getting off the cough awkwardly during the [employer] game. He denies any direct bony trauma nor neurologic symptoms such as numbness, tingling or weakness. He has no radiation into either leg. He denies any trouble with bowel or bladder control. He denies foot drop. His pain is worse with motion and improves with rest. He states he has been taking significant amounts of Motrin with minimal help. He requests a shot of Dilaudid the because this is worsened in the past. MD Complaint: back pain and back injury Onset (ago): day(s) Duration: constant Similar Symptoms Previously: Yes Location: left lower back Severity: moderate Quality: sharp Radiation: none Relieving factors: immobilization Exacerbating factors: walking Context: turning/twisting Associated symptoms: denies other symptoms Related Data Home Medications Medication Instructions Recorded Confirmed Breo Ellipta 1 puff INH DAILY #0 12/03/16 03/12/19 Combivent Respimat See Rx Instructions .ROUTE 04/15/17 03/12/19 .COMPLEX #0 MDD 6 albuterol sulfate 1.25 mg INH Q4HP PRN #0 05/24/17 03/12/19 albuterol sulfate [Ventolin HFA] 1 puff INH SEE INSTRUCTIONS 08/22/17 03/12/19 Vitamin B-12 1 tab PO DAILY 02/21/18 03/12/19 clobetasol 1 applic TOPICAL SUSA 02/21/18 03/12/19 desonide 1 applic TOPICAL PRN PRN 02/21/18 03/12/19 multivitamin 1 tab PO DAILY 02/21/18 03/12/19 calcium citrate 500 mg PO BID tab 03/28/18 03/12/19 apixaban 5 mg tablet 5 mg PO BID 05/30/18 03/12/19 sumatriptan succinate 6 mg/0.5 mL 1 dose SUBCUT PRN PRN #10 ml 08/11/18 03/12/19 subcutaneous pen injector armodafinil 250 mg tablet 250 mg PO ONCE PRN 01/19/19 03/12/19 levothyroxine 100 mcg PO QAM 01/22/19 03/12/19 liothyronine 12.5 mcg PO DAILY 01/22/19 03/12/19 tamsulosin 0.4 mg PO DAILY 01/22/19 03/12/19 Previous Rx's Medication Instructions Recorded cyclobenzaprine 10 mg tablet 10 mg PO TID PRN #30 tab 01/09/18 montelukast 10 mg tablet 10 mg PO BEDTIME #14 tab 05/18/18 fremanezumab-vfrm 225 mg/1.5 mL 225 mg SUBCUT QMONTH #1.5 ml 05/30/18 subcutaneous syringe ondansetron 4 mg PO Q6H PRN #20 tab 10/09/18 sumatriptan succinate 100 mg tablet See Rx Instructions .ROUTE 01/11/19 .COMPLEX #30 tablet lamotrigine 200 mg tablet 100 mg PO BEDTIME #30 tab 01/12/19 sumatriptan 20 mg/actuation nasal See Rx Instructions .ROUTE 01/16/19 spray .COMPLEX #14 each prochlorperazine maleate 10 mg 10 mg PO Q8H PRN #60 tab 02/06/19 tablet eszopiclone 2 mg tablet 2 mg PO BEDTIME #14 tab 02/12/19 clonazepam 1 mg tablet 1.5 mg PO QAM #45 tab 03/05/19 clonazepam 2 mg tablet 2 mg PO BID #60 tab 03/05/19 lidocaine 5 % topical patch 1 patch TOP .COMPLEX #15 each 03/06/19 atorvastatin 10 mg tablet 10 mg PO BEDTIME #90 tab 03/07/19 metoprolol tartrate 25 mg tablet 25 mg PO BID #180 tab 03/07/19 nortriptyline 10 mg capsule See Rx Instructions .ROUTE 03/07/19 .COMPLEX #90 cap duloxetine 60 mg capsule,delayed 60 mg PO BID #60 cap 03/12/19 release lithium carbonate 300 mg capsule 600 mg PO BEDTIME #60 cap 03/12/19 ketoconazole 2 % shampoo See Rx Instructions .ROUTE 03/16/19 .COMPLEX #360 milliliter bupropion HCl 300 mg 24 hr tablet, See Rx Instructions .ROUTE 03/19/19 extended release .COMPLEX #90 tab cyclobenzaprine 10 mg PO TID #10 tab 04/05/19 Allergies Allergy/AdvReac Type Severity Reaction Status Date / Time doxycycline [DOXYCYCLINE] Allergy Mild ITCHING Verified 03/12/19 11:21 ketorolac [KETOROLAC] Allergy Unknown Verified 03/12/19 11:21 NSAIDS (Non-Steroidal AdvReac Unknown TO AVOID Verified 03/12/19 11:21 Anti-Inflamma R/T [NSAIDS (NON-STEROIDAL GASTRIC ANTI-INFLAMMA] BYPASS controlled substance AdvReac Uncoded 03/12/19 11:21 agreement Review of Systems Constitutional Constitutional: Denies chills, Denies fatigue, Denies fever(s), Denies frequent falls, Denies lethargy and Denies weakness Eyes Eyes: Denies change in vision, Denies eye discharge, Denies irritation and Denies loss of vision ENT Ears, Nose, Mouth, and Throat: Denies change in voice, Denies dizziness, Denies neck pain, Denies sore throat and Denies throat swelling Cardiovascular Cardiovascular: Denies chest pain, Denies irregular heart rhythm, Denies lightheadedness, Denies palpitations, Denies dyspnea, Denies dyspnea on exertion and Denies orthopnea Respiratory Respiratory: Denies cough, Denies dyspnea, Denies dyspnea on exertion and Denies wheezing Gastrointestinal Gastrointestinal: Denies abdominal pain, Denies change in bowel habits, Denies diarrhea, Denies nausea and Denies vomiting Genitourinary Genitourinary: Denies hematuria, Denies flank pain, Denies urinary incontinence and Denies urinary urgency Musculoskeletal Musculoskeletal: Reports abnormal gait, Reports back pain, Denies muscle weakness, Denies neck pain, Denies numbness and Denies tingling Integumentary/Breasts Skin/Breast: Denies pruritus, Denies erythema, Denies rash and Denies wounds Neurologic Neurologic: Reports abnormal gait, Denies behavioral changes, Denies confusion, Denies dizziness, Denies frequent falls, Denies loss of vision, Denies numbness, Denies tingling and Denies weakness Psychiatric Psychiatric: Denies anxiety, Denies behavioral changes, Denies confusion, Denies depression, Denies homicidal ideation and Denies suicidal ideation Endocrine Endocrine: Denies fatigue, Denies flushing and Denies palpitations Hematologic/Lymphatic Hematologic/Lymphatic: Denies easy bruising Allergic/Immunologic Allergic/Immunologic: Denies urticaria, Denies throat swelling and Denies wheezing Patient History Medical History Anxiety (Chronic) Chronic left shoulder pain (Chronic 01/20/16) Chronic obstructive pulmonary disease (Chronic 08/05/17) Chronic pain syndrome (Chronic 11/08/16) Cognitive disorder (Chronic 04/24/14) 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) H/O migraine (Inactive) H/O renal calculi (Inactive) History of stroke (Inactive) Hypersomnia (Chronic) Hypothyroidism (Chronic) Insomnia (Chronic) Iron deficiency (Chronic) Major depressive disorder, recurrent episode, severe (Chronic) Mixed hyperlipidemia (Chronic) Narcotic dependence (Resolved 09/01/16) Obesity with body mass index (BMI) of 30.0 to 39.9 (Chronic 12/06/14) Other iron deficiency anemia (Chronic 02/03/15) Paroxysmal atrial fibrillation (Chronic) Patent foramen ovale (Resolved) Pneumonia (Resolved) Post traumatic stress disorder (PTSD) (Chronic) Psoriasis (Chronic) S/P ECT (electroconvulsive therapy) (Acute) Sarcoidosis (Chronic) Sleep apnea (Ruled-out) Vitamin B12 deficiency (Chronic 02/19/11) Surgical History History of gastric bypass (Inactive ~2003) History of Cris-en-Y gastric bypass (Inactive ~2003) History of total shoulder replacement (Inactive ~12/2015) S/P laparoscopic cholecystectomy (Inactive 10/18/18) S/P lumbar laminectomy (Inactive ~10/2017) Family History Father No problems noted. Mother No problems noted. 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 Extraoccular muscles are intact bilaterally. There is no subconjunctival hemorrhage or exudate. CHEST: Lungs are clear to auscultation bilaterally and free of wheezes, rales, or rhonchi. Heart rate is regular rhythm, there are no murmurs, clicks, rubs, or gallops. There is no chest wall tenderness. ABD: Abdomen is soft and nontender. There is no guarding or rebound. Bowel sounds are normal in all 4 quadrants. There is no mass or organomegaly. EXT: Full painless ROM of all extremities with no loss of sensation or strength. SKIN: Warm, pink, and dry. No erythema or rash BACK: external grinder tender but free of any obvious external abnormalities. Patient exam notes decreased range of motion and muscle spasm, but no CVA tenderness, or vertebral point tenderness. There are no symptoms of cauda equina such as saddle anesthesia, and decreased reflexes, decreased sensation or strength. Initial Vital Signs Initial Vital Signs: Vital Signs Temperature 98.3 F 04/05/19 16:59 Pulse Rate 86 04/05/19 16:59 Respiratory Rate 16 04/05/19 16:59 Blood Pressure 133/88 04/05/19 16:59 Pulse Oximetry 96 04/05/19 16:59 Course Orders Ordered: Discontinued Medications Cyclobenzaprine HCl (Flexeril) 10 mg PO NOW ONE Stop: 04/05/19 19:06 Last Admin: 04/05/19 19:14 Dose: 10 mg [facility] Vital Signs Vital signs: Vital Signs - 8 hr 04/05/19 16:59 Temperature 98.3 F Pulse Rate 86 Respiratory Rate 16 Blood Pressure 133/88 Pulse Oximetry 96 MDM - Back Pain/Injury MDM Narrative Medical decision making narrative: Patient with chronic back pain complains of pain after moving awkwardly from the couch. He denies any neurologic symptoms or those relating to cauda equina. He has a low risk injury and a very reassuring exam. Based on story and exam there is no indication for imaging at this point time and multiple options for pain control were discussed. I discussed why Dilaudid or other opioids were not indicated and though patient was obviously upset he claims he understood my reasoning. He walked out under his own power without much in the way of any perceived difficulty. He was given return precautions and had questions answered to his apparent satisfaction Discharge Plan Departure Patient Disposition: Home Clinical Impression: Acute lumbar back pain Qualifiers: Back pain laterality: left Sciatica presence: without sciatica Qualified Code(s): M54.5 - Low back pain Discharge Date/Time: 04/05/19 19:22 Instructions: DI for Back Spasm Activity Restrictions/Additional Instructions: *You have been diagnosed with [ acute lumbar back pain ] *What to do: *Take medications as directed: Prescription sent to [facility] *Follow up with your primary care provider in 2-3 days, call for an appointment. Let them know you were seen in the Emergency Department and that we ask that you be seen in follow up *Return to ER if you should have any new, worsening or concerning symptoms such as loss of bowel or bladder control, leg weakness, fever >101F, or other bothersome symptoms Prescriptions: New cyclobenzaprine 10 mg tablet 10 mg PO TID Qty: 10 RF: 0 No Action eszopiclone [Lunesta] 2 mg tablet 2 mg PO BEDTIME Qty: 14 RF: 0 sumatriptan succinate 6 mg/0.5 mL pen injector 1 dose SUBCUT PRN PRN (Reason: Migraine Headache) Qty: 10 RF: 0 lamotrigine 200 mg tablet 100 mg PO BEDTIME Qty: 30 RF: 1 armodafinil [Nuvigil] 250 mg tablet 250 mg PO ONCE PRN (Reason: as directed) RF: 0 lithium carbonate 300 mg capsule 600 mg PO BEDTIME Qty: 60 RF: 3 duloxetine [Cymbalta] 60 mg capsule,delayed release(DR/EC) 60 mg PO BID Qty: 60 RF: 3 Breo Ellipta 200 MCG/25 MCG blister with device 1 puff INH DAILY Qty: 0 RF: 0 Combivent Respimat 4 GM mist See Rx Instructions .ROUTE .COMPLEX MDD 6 Qty: 0 RF: 0 albuterol sulfate 1.25 MG/3 ML solution for nebulization 1.25 mg INH Q4HP PRN (Reason: Shortness Of Breath) Qty: 0 RF: 0 cyclobenzaprine 10 mg tablet 10 mg PO TID PRN (Reason: muscle spasm) Qty: 30 RF: 0 montelukast [Singulair] 10 mg tablet 10 mg PO BEDTIME Qty: 14 RF: 0 sumatriptan succinate 100 mg tablet See Rx Instructions .ROUTE .COMPLEX Qty: 30 RF: 5 sumatriptan 20 mg/actuation spray,non-aerosol See Rx Instructions .ROUTE .COMPLEX Qty: 14 RF: 2 clonazepam 1 mg tablet 1.5 mg PO QAM Qty: 45 RF: 0 clonazepam 2 mg tablet 2 mg PO BID Qty: 60 RF: 0 lidocaine [Lidoderm] 5 % adhesive patch,medicated 1 patch TOP .COMPLEX Qty: 15 RF: 3 atorvastatin [Lipitor] 10 mg tablet 10 mg PO BEDTIME Qty: 90 RF: 1 metoprolol tartrate 25 mg tablet 25 mg PO BID Qty: 180 RF: 1 nortriptyline 10 mg capsule See Rx Instructions .ROUTE .COMPLEX Qty: 90 RF: 3 ketoconazole 2 % shampoo See Rx Instructions .ROUTE .COMPLEX Qty: 360 RF: 0 bupropion HCl 300 mg tablet extended release 24 hr See Rx Instructions .ROUTE .COMPLEX Qty: 90 RF: 1 prochlorperazine maleate 10 mg tablet 10 mg PO Q8H PRN (Reason: nausea and vomiting) Qty: 60 RF: 4 calcium citrate 250 mg calcium tablet 500 mg PO BID RF: 0 albuterol sulfate [Ventolin HFA] 90 MCG/PUFF HFA aerosol inhaler 1 puff INH SEE INSTRUCTIONS RF: 0 ondansetron 4 mg tablet,disintegrating 4 mg PO Q6H PRN (Reason: nausea and vomiting) Qty: 20 RF: 0 liothyronine 25 mcg tablet 12.5 mcg PO DAILY RF: 0 levothyroxine 100 mcg tablet 100 mcg PO QAM RF: 0 tamsulosin 0.4 mg capsule 0.4 mg PO DAILY RF: 0 desonide 0.05 % cream 1 applic Topical PRN PRN (Reason: Inflammation) RF: 0 clobetasol 0.05 % ointment 1 applic Topical SUSA RF: 0 multivitamin Tablet 1 tab PO DAILY RF: 0 Vitamin B-12 1 tab PO DAILY RF: 0 Eliquis 5 mg tablet 5 mg PO BID RF: 0 Ajovy 225 mg/1.5 mL syringe 225 mg SUBCUT QMONTH Qty: 1.5 RF: 11 Referrals: Eleazar Armstrong MD [Primary Care Provider] - Isaiah Pathak MD [Physician] -
[2019-04-05] MEDS: CYCLOBENZAPRINE 10 MG TABLET PO (19:14)
[2019-04-05 19:16] VITALS: BP 135/51; PULSE 70; RESP 18; O2SAT 95
== END 2019-04-05 19:22 | disposition home or self-care (01) ==
PROVIDERS: Emergency Provider Emergency Medicine; Family Provider Internal Medicine; PCP Internal Medicine
DX: M54.5 Low back pain (principal)
CPT/HCPCS: 99281; 99283

== ENCOUNTER → 2019-04-17 12:05 | Outpatient (CLI) | payer MEDICARE, SELFPAY ==
[2018-10-11 14:03] VITALS: BMI 31.0
[2019-04-17 13:03] LABS: Lithium 0.8 mmol/L (0.6-1.2)
[2019-04-17 13:06] LABS: BUN Creatinine Ratio 19.1 (6-22); Blood Urea Nitrogen 21 mg/dL (9-20); Calcium 10.2 mg/dL (8.4-10.2); Carbon Dioxide 32 mmol/L (22-32); Chloride 99 mmol/L (98-107); Estimated Glomerular Filt Rate > 60.0 mL/min (>60); Glucose 82 mg/dL (80-110); HEMOLYSIS 45 (0-50); Sodium 139 mmol/L (137-145)
[2019-04-17 13:08] LABS: Potassium 5.5 mmol/L (3.4-5.1)
== END ==
PROVIDERS: PCP Internal Medicine; Visit Provider Psychiatry & Neurology Psychiatry
DX: F33.2 Major depressive disorder, recurrent severe without psychotic features (principal)
CPT/HCPCS: 36415; 80048; 80178

== ENCOUNTER → 2019-05-25 07:03 | Outpatient (CLI) | payer MEDICARE, SELFPAY ==
[2018-10-11 14:03] VITALS: BMI 31.0
[2019-05-25 08:30] LABS: Alanine Aminotransferase 123 IU/L (<50); Albumin 4.3 g/dL (3.5-5.0); Albumin Globulin Ratio 1.4 (1.0-2.8); Alkaline Phosphatase 104 U/L (38-126); Aspartate Aminotransferase 56 IU/L (17-59); BUN Creatinine Ratio 13.3 (6-22); Bilirubin Total 0.6 mg/dL (0.2-1.3); Blood Urea Nitrogen 16 mg/dL (9-20); Calcium 9.6 mg/dL (8.4-10.2); Carbon Dioxide 30 mmol/L (22-32); Chloride 101 mmol/L (98-107); Cholesterol 174 mg/dL (140-199); Estimated Glomerular Filt Rate > 60.0 mL/min (>60); Glucose 99 mg/dL (80-110); HDL Cholesterol 40 mg/dL (40-60); HEMOLYSIS < 15 (0-50); LDL Cholesterol Calculated 100 mg/dL (<100); Potassium 4.2 mmol/L (3.4-5.1); Sodium 140 mmol/L (137-145); Total Protein 7.3 g/dL (6.3-8.2); Triglycerides 171 mg/dL (35-150)
== END ==
PROVIDERS: PCP Internal Medicine; Referring Provider Internal Medicine Cardiovascular Disease; Visit Provider Internal Medicine Cardiovascular Disease
DX: R94.5 Abnormal results of liver function studies (principal); E78.5 Hyperlipidemia, unspecified
CPT/HCPCS: 36415; 80053; 80061

== ENCOUNTER → 2019-08-01 13:58 | Outpatient (CLI) | payer MEDICARE, SELFPAY ==
[2018-10-11 14:03] VITALS: BMI 31.0
--- NOTE | 2019-08-01 | DI.MRI.S_ITS ---
PROCEDURE: MR LUMBAR SPINE WO/W CON INDICATIONS: Spondylosis without myelopathy or radiculopathy TECHNIQUE: Noncontrast sagittal T1 spin echo and T2 fast spin echo, sagittal STIR, axial T1 and T2 fast spin echo through the lumbar spine. In cases with scoliosis, additional coronal T2 fast spin echo may be performed. After the administration of contrast, sagittal and axial T1 spin echo with fat saturation through the lumbar spine. COMPARISON: [facility], , L-SPINE WITHOUT CONTRAST, 06/15/2016, 10:24. [facility] [place], CR, XR LUMBAR SPINE FLEXION EXTENSION, 04/25/2019, 15:48. FINDINGS: Image quality: Excellent. Alignment and curvature: 5 lumbar type vertebral wires are present by plain film. There is mild grade 1 retrolisthesis of L2-1 L3, L3 on L4, L4-L5, and L5 on S1. Marrow: Marrow is of normal overall signal. No acute vertebral body compression fractures. No suspicious marrow enhancement. There is mild reactive signal within the endplates adjacent to the the L2-L3, L3-L4, L4-L5, and L5-S1 intervertebral discs. L3 hemangioma. Spinal cord: Conus medullaris terminates at the mid L1 level. Visualized spinal cord demonstrates normal signal, without suspicious enhancement. Paraspinous soft tissues: No paravertebral masses or abnormal enhancement. L1-L2: Mild disc height loss and desiccation. Mild diffuse disc bulge superimposed right and left far lateral protrusion. Previously seen left paracentral disc extrusion has resolved. Mild facet and ligament flavum hypertrophy bilaterally. There is decreased, mild canal stenosis. No change in mild bilateral foraminal stenosis. L2-L3: Mild disc height loss and desiccation. Mild diffuse disc bulge. Mild bilateral facet and ligamentum flavum hypertrophy. Mild epidural lipomatosis. Mild canal stenosis. Mild bilateral foraminal stenosis. No change. L3-L4: Mild disc height loss and desiccation. Mild diffuse disc bulge. Mild facet and ligamentum flavum hypertrophy. Mild epidural lipomatosis. Mild canal stenosis. Mild bilateral foraminal stenosis. No change. L4-L5: Moderate disc height loss and desiccation. Mild diffuse disc bulge. Moderate bilateral facet hypertrophy. Mild canal stenosis. Mild bilateral foraminal stenosis. No change. L5-S1: Moderate disc height loss and desiccation. Moderate diffuse disc bulge. Moderate bilateral facet hypertrophy. Mild canal stenosis. Moderate bilateral foraminal stenosis. No change. IMPRESSION: 1. Multilevel degenerative disc and facet disease, as well as ligamentum flavum hypertrophy and epidural lipomatosis. 2. Multilevel canal stenoses. 3. Multilevel foraminal stenoses, worst at L5-S1 bilaterally where there are moderate foraminal stenoses present. Dictated by: Comfort Lozano M.D. on 08/01/2019 at 15:38 Approved by: Comfort Lozano M.D. on 08/01/2019 at 15:42
== END ==
PROVIDERS: PCP Internal Medicine; Referring Provider Internal Medicine; Visit Provider Orthopaedic Surgery
DX: M47.816 Spondylosis without myelopathy or radiculopathy, lumbar region (principal); M51.36 Other intervertebral disc degeneration, lumbar region; M51.37 Other intervertebral disc degeneration, lumbosacral region; M48.061 Spinal stenosis, lumbar region without neurogenic claudication; M48.07 Spinal stenosis, lumbosacral region; E88.2 Lipomatosis, not elsewhere classified
CPT/HCPCS: 72158

== ENCOUNTER 2019-09-30 12:50 | Observation (INO) | payer MEDICARE, SELFPAY ==
[2018-10-11 14:03] VITALS: BMI 31.0
[2019-09-30] VITALS (16 sets, daily range): BP systolic 100–140; BP diastolic 65–91; PULSE 71–93; RESP 12–22; TEMP 36.7–37.5; O2SAT 92–97; BMI 34.4
--- NOTE | 2019-09-30 | DI.ECHO.S_ITS ---
[facility] +---------+ : : [address] : : : : [id number] : : : : Phone: [phone]+ Echocardiogram Report + + :Name: FAHAD SALAZAR Study Date: 10/01/2019 Height: 26.5 in: :[facility] Weight: 485 lb : : Gender: Male BSA: 1.5 m2 : :: 1955 Age: 64 yrs BP: 140/84 mmHg: :Reason For Study: CVA VS TIA : : Performed By: Andrés Jay : :Referring: COREEN MANZO : + + Interpretation Summary Normal left ventricle size with ejection fraction 60-65%. Moderate biatrial enlargement. Mild aortic valve sclerosis. Mild mitral regurgitation. Mild atherosclerotic plaque(s) in the aortic arch. A bubble study was performed on the patient's prior echo- it did not document an intratrial shunt. Procedure: A two-dimensional transthoracic echocardiogram with color flow and Doppler was performed. The study quality was technically good. Comparison is made with the echocardiogram of 04/17/17. The subcostal views were difficult to obtain and are suboptimal in quality. The patient was in normal sinus rhythm during the exam. Left Ventricle: The left ventricle is normal in size. There is normal left ventricular wall thickness. The ejection fraction is estimated to be 60-65%. There are no focal wall motion abnormalities. Right Ventricle: The right ventricle is normal in size and function. Atria: There is moderate biatrial enlargement. The interatrial septum is intact with no evidence for an atrial septal defect. A bubble study was performed on the patient's prior echo- it did not document an intratrial shunt. Mitral Valve: The mitral valve leaflets appear mildly thickened, but open well. The mitral valve leaflets appear to open well. There is mild mitral regurgitation. Aortic Valve: The aortic valve is trileaflet. The aortic valve opens well. There is mild aortic valve sclerosis. No aortic regurgitation is present. Tricuspid Valve: The tricuspid valve is normal in structure and function. There is trace tricuspid regurgitation. The right ventricular systolic pressure is estimated to be at least 32 mmHg based on an estimated right atrial pressure of 3 mm Hg. Pulmonic Valve: The pulmonic valve is normal in structure and function. There is trace pulmonic regurgitation. Great Vessels: The aortic root is normal size. The dimensions of the ascending aorta are normal. Mild atherosclerotic plaque(s) in the aortic arch. The pulmonary artery is normal size. The inferior vena cava was not visualized. Pericardium/ Pleura There is no pericardial effusion. There is no pleural effusion. MMode/2D Measurements & Calculations LVIDd: 5.1 cm LVOT diam: 2.2 cm LVIDs: 3.4 cm Ao root diam: 3.3 cm FS: 32.6 % asc Aorta Diam: 3.3 cm EPSS: 0.53 cm Ao Arch Diam (Prox Trans): 2.6 cm IVSd: 0.91 cm LVPWd: 0.90 cm LV peguero. diameter/BSA (cm/m^2): 3.4 LV sys. diameter/BSA (cm/m^2): 2.3 LA dimension: 3.8 cm RA long axis: 4.8 cm LA A2 area: 21.6 cm2 RA area: 21.7 cm2 LA A4 area: 18.7 cm2 RA vol: 84.1 ml LA length (vol): 5.3 cm RA : 56.1 ml/m2 LA vol: 65.0 ml LA vol index: 43.4 ml/m2 RVD1 (basal): 3.9 cm RVD2 (mid): 4.5 cm Doppler Measurements & Calculations Ao V2 max: 133.7 cm/sec LVOT Max Primo: 121.9 cm/sec Ao V2 mean: 103.0 cm/sec LV V1 max P.9 mmHg Ao max P.2 mmHg LV V1 VTI: 27.2 cm Ao mean P.5 mmHg CARMEN(I,D): 3.3 cm2 Ao V2 VTI: 30.2 cm CARMEN(V,D): 3.3 cm2 sev ratio: 0.90 CARMEN indexed to BSA (cm^2/m^2): 2.2 MV E max primo: 115.5 cm/sec TR max primo: 270.2 cm/sec MV A max primo: 78.6 cm/sec TR max P.2 mmHg MV E/A: 1.5 PA V2 max: 80.2 cm/sec Med Peak E' Primo: 4.9 cm/sec PA V2 mean: 61.1 cm/sec E/E' med: 23.4 PA mean P.6 mmHg Lat Peak E' Primo: 10.4 cm/sec PA pr(Accel): 39.6 mmHg E/E' lat: 11.1 E/e' average: 17.2 MV dec time: 0.14 sec SV(LVOT): 99.5 ml Electronically signed by: Karley Tan on Reading Physician:10/01/2019 04:24 PM
--- NOTE | 2019-09-30 13:16 | DI.CT.S_ITS ---
PROCEDURE: CT HEAD/BRAIN WO CON INDICATIONS: HEADACHE TECHNIQUE: Noncontrast 4.5 mm thick angled axial sections acquired from the foramen magnum to the vertex, with coronal and sagittal reformats. For radiation dose reduction, the following was used: automated exposure control, adjustment of mA and/or kV according to patient size. COMPARISON: [facility], CT, HEAD WITHOUT CONTRAST, 06/28/2017, 3:51. FINDINGS: Image quality: Diagnostic. CSF spaces: Basal cisterns are patent. No extra-axial fluid collections. Ventricles are normal in size and shape. Brain: No midline shift. No intracranial masses or hemorrhage. Mehta-white matter interface is normal. No jae-of ischemia involving the right basal ganglia is identified, similar to the previous exam. Areas of low-attenuation are seen within the periventricular and deep white matter of the supratentorial brain. There also is an area of encephalomalacia evident involving the right parietal lobe, similar to the prior study. Skull and face: Calvarium and visualized facial bones are intact, without suspicious lesions. Sinuses: Visualized sinuses and mastoids are clear. IMPRESSION: 1. No acute intracranial hemorrhage. 2. Unchanged right parietal and right basal ganglia areas of encephalomalacia. Dictated by: Von Marcano M.D. on 09/30/2019 at 12:48 Approved by: Von Marcano M.D. on 09/30/2019 at 12:49
--- NOTE | 2019-09-30 13:18 | DI.RAD.S_ITS ---
PROCEDURE: XR CHEST 1V INDICATIONS: WEAKNESS TECHNIQUE: One view of the chest was acquired. COMPARISON: [facility], CR, XR CHEST 1V, 04/01/2019, 20:03. FINDINGS: Surgical changes and devices: Postoperative changes related to a left shoulder arthroplasty are present. Lungs and pleura: Lungs are clear. No pleural effusions or pneumothorax. Mediastinum: Mediastinal contours appear normal. Heart size is normal. Bones and chest wall: No suspicious bony lesions. Overlying soft tissues appear unremarkable. IMPRESSION: No acute cardiopulmonary process is evident. Dictated by: Von Marcano M.D. on 09/30/2019 at 12:53 Approved by: Von Marcano M.D. on 09/30/2019 at 12:53
--- NOTE | 2019-09-30 13:19 | DI.CT.S_ITS ---
PROCEDURE: CT ANGIO HEAD AND NECK INDICATIONS: multiple strokes, dysequilibrium, weakness and fatigue TECHNIQUE: Pre-contrast 4.5 mm thick sections acquired from the foramen magnum to the vertex. After the administration of intravenous contrast, 1 mm thick sections acquired from the aortic arch through the [place] of [place]. Post-contrast 4.5 mm thick sections then re-acquired from the foramen magnum to the vertex. 3-dimensional etccpag-kxtjosnlb-damgppmmmr (MIP) and/or volume rendering reformats were acquired of the central intracranial vasculature and neck separately. COMPARISON: [facility], CT, CT HEAD/BRAIN WO CON, 09/30/2019, 13:20. FINDINGS: Image quality: Diagnostic. BRAIN: CSF spaces: Ventricles are normal in size and shape. Basal cisterns are patent. No extra-axial fluid collections. Brain: No midline shift. No intracranial bleeds or masses. Mehta-white matter interface appears intact. Encephalomalacia is again evident involving the right parietal lobe and the right basal ganglia. No suspicious enhancement is appreciated. Skull and face: Calvarium and facial bones appear intact, without suspicious lesions. Orbits appear normal. Sinuses: Sinuses and mastoids are clear. HEAD CT ANGIOGRAPHY: Anterior circulation: Intracranial internal carotid arteries are normal in size and flow. The flow within the paired anterior cerebral arteries is normal and symmetric. The flow within the middle cerebral arteries is normal and symmetric. The anterior communicating artery is seen. No aneurysms are seen. Posterior circulation: Visualized portions of the vertebral arteries demonstrate normal caliber, and join to form a normal appearing basilar artery. Flow within the posterior cerebral arteries is normal and symmetric. No aneurysms are seen. NECK CT ANGIOGRAPHY: Carotid system: The great vessels demonstrate a conventional anatomy as they arise from the aortic arch. The origins of the common carotid arteries appear patent. The common carotid arteries demonstrate normal caliber and courses. The bifurcation regions are both widely patent. However, there is mild atherosclerosis (right greater than left) involving the bilateral proximal internal carotid arteries at the level of the carotid bulbs with approximately 5-20% narrowing of the lumen of the vessels. No high grade narrowing or occlusion is present. Posterior circulation: There may be mild narrowing involving the origin of the left vertebral artery. There is mild atherosclerosis at the origin of the right vertebral artery. Otherwise, both vertebral arteries are widely patent and unremarkable. The more superior extracranial portions of both vertebral arteries also demonstrate normal courses and calibers. They join to form a normal appearing basilar artery. Soft tissues: Visualized neck soft tissues demonstrate no suspicious abnormalities. Bones: No suspicious bony lesions. Areas of groundglass attenuation are identified within the bilateral upper lobes. Visualized cervical spine appears normally aligned. IMPRESSION: 1. Mild atherosclerosis of the bilateral proximal internal carotid arteries without a high grade area of narrowing. 2. Possible moderate narrowing involving the origin of the left vertebral artery. The vertebral arteries are otherwise unremarkable. 3. The intracranial arteries are widely patent without evidence of occlusion, high-grade narrowing, or aneurysm. 4. No abnormal enhancement of the brain. Any quantitative measurements of stenosis were performed using NASCET criteria. Dictated by: Von Marcano M.D. on 09/30/2019 at 13:30 Approved by: Von Marcano M.D. on 09/30/2019 at 13:33
--- NOTE | 2019-09-30 13:22 | ED_ITS ---
HPI - Neuro Symptoms/Deficit General Chief Complaint: Neuro Symptoms/Deficit Stated Complaint: hx of stroke/tia x1 day Time Seen by Provider: 09/30/19 12:52 Source: patient Mode of arrival: Family Vehicle Limitations: no limitations History of Present Illness HPI Narrative: CC: I think I am having a stroke. I was last known to be well and normal 3-4 days ago. The patient states that he has had 4-5 strokes arm i ncluding TIAs. He states that he had a stroke in 2013. He has had multiple TIAs. He states that he believes he is having a stroke because his balance is off. He can fall to either side. He feels sometimes that he is falling and needs to use the wall for support. He states that he has been very weak and tired and that he has been unable to focus and concentrate. He has not fallen or injured himself. Prior to coming into the emergency department the patient had a headache that was typical of his migraines and he took sumatriptan. His headache resolved by the time he came here. However his headache was starting to come back. He admits to having frequent migraine headaches and states that he takes sumatriptan 2-3 times per day for his headaches. After my interview he was stating that his headache was returning and it was approximately 3 to 4/10 in intensity. He denies any recent fall or injury. He denies being a diabetic but is on high blood pressure medications. He has had no seizures COPD myocardial infarction or congestive heart failure. He admits to asthma and the stroke. He admits to being a former smoker stating that he quit 1986. He does not drink alcohol on a regular basis or use marijuana. On Anticoagulants: Yes Related Data Home Medications Medication Instructions Recorded Confirmed Breo Ellipta 1 puff INH DAILY #0 12/03/16 09/30/19 Combivent Respimat See Rx Instructions .ROUTE 04/15/17 09/30/19 .COMPLEX #0 MDD 6 albuterol sulfate 1.25 mg INH Q4HP PRN #0 05/24/17 09/30/19 Vitamin B-12 1 tab PO DAILY 02/21/18 09/30/19 desonide 1 applic TOPICAL PRN PRN 02/21/18 09/30/19 calcium citrate 500 mg PO BID tab 03/28/18 09/30/19 apixaban 5 mg tablet 5 mg PO BID 05/30/18 09/30/19 armodafinil 250 mg tablet 250 mg PO ONCE PRN 01/19/19 09/30/19 liothyronine 12.5 mcg PO DAILY 01/22/19 09/30/19 tamsulosin 0.4 mg PO DAILY 01/22/19 09/30/19 clobetasol 0.05 % topical ointment 1 applic TOPICAL SUSA PRN 04/18/19 09/30/19 eszopiclone 2 mg tablet 2 mg PO BEDTIME PRN tab 04/18/19 09/30/19 multivitamin 1 tab PO TID tab 04/18/19 09/30/19 sumatriptan succinate 100 mg PO ONCE PRN 09/30/19 09/30/19 Previous Rx's Medication Instructions Recorded montelukast 10 mg tablet 10 mg PO BEDTIME #14 tab 05/18/18 prochlorperazine maleate 10 mg 10 mg PO Q8H PRN #60 tab 02/06/19 tablet lidocaine 5 % topical patch 1 patch TOP .COMPLEX #15 each 03/06/19 ketoconazole 2 % shampoo See Rx Instructions .ROUTE 03/16/19 .COMPLEX #360 milliliter lithium carbonate 600 mg capsule 600 mg PO BEDTIME #90 cap 05/09/19 levothyroxine 100 mcg tablet 100 mcg PO QAM #90 tab 05/18/19 Disabled Parking #1 each 08/02/19 duloxetine 60 mg capsule,delayed 60 mg PO BID #60 cap 08/06/19 release clonazepam 2 mg tablet See Rx Instructions .ROUTE 09/07/19 .COMPLEX #90 tab metoprolol tartrate 25 mg tablet 25 mg PO BID #180 tab 09/12/19 bupropion HCl 300 mg 24 hr tablet, See Rx Instructions .ROUTE 09/28/19 extended release .COMPLEX #90 tab Allergies Allergy/AdvReac Type Severity Reaction Status Date / Time doxycycline [DOXYCYCLINE] Allergy Mild ITCHING Verified 09/30/19 13:07 ketorolac [KETOROLAC] Allergy Unknown Verified 09/30/19 13:07 NSAIDS (Non-Steroidal AdvReac Unknown TO AVOID Verified 09/30/19 13:07 Anti-Inflamma R/T [NSAIDS (NON-STEROIDAL GASTRIC ANTI-INFLAMMA] BYPASS controlled substance AdvReac Uncoded 09/30/19 13:07 agreement Review of Systems Review of Systems Narrative: REVIEW OF SYSTEMS: CONSTITUTIONAL: The patient denies any change in weight any fever chills or sweats. NEUROLOGICAL: He complains of a headache and admits to history of migraine headaches. His headache was relieved by sumatriptan at home and then the headache started to come back in the emergency department. He denies any seizures any numbness tingling paresthesias anesthesia is or paresis. He states that he has had tingling in his toes since 2003. He states that he has a problem in being able to concentrate and focus at this time. EENT: He denies any loss of vision eye pain or glaucoma. He has had nasal drainage with a mild sore throat but no dysphagia or trouble swallowing. CARDIO-PULMONARY: He admits to being short of breath and being dizzy lightheaded and weak. He has had no chest pain or palpitations. ENDOCRINE: He denies being a diabetic. GASTROINTESTINAL: He has had no abdominal pain nausea vomiting but has intermittent diarrhea with incontinence of stool yesterday. GENITAL URINARY: He denies any urinary symptoms any for can see or urgency. MUSCULOSKELETAL/ RHEUMATOLOGICAL: The patient denies having any significant b ack pain. The patient states that in 2003 he was septic and placed in a drug induced coma for 7 74 days. Since then he has had a port for IV access. He was also noted to be iron deficient and had to be administered IV iron. He denies a history of any cancer or lymphoma. Because of his multiple strokes he has been placed on Eliquis b.i.d.. Patient History Medical History Anxiety (Chronic) Asthma (Acute) Chronic left shoulder pain (Chronic 01/20/16) Chronic obstructive pulmonary disease (Chronic 08/05/17) Chronic pain syndrome (Chronic 11/08/16) Cognitive disorder (Chronic 04/24/14) 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) Essential tremor (Acute) H/O migraine (Inactive) H/O renal calculi (Inactive) History of stroke (Inactive) Hypersomnia (Chronic) Hypothyroidism (Chronic) Insomnia (Chronic) Iron deficiency (Chronic) Major depressive disorder, recurrent episode, severe (Chronic) Mixed hyperlipidemia (Chronic) Narcotic dependence (Resolved 09/01/16) Obesity with body mass index (BMI) of 30.0 to 39.9 (Chronic 12/06/14) Paroxysmal atrial fibrillation (Chronic) Patent foramen ovale (Resolved) Pneumonia (Resolved) Post traumatic stress disorder (PTSD) (Chronic) Psoriasis (Chronic) S/P ECT (electroconvulsive therapy) (Acute) Sarcoidosis (Chronic) Sleep apnea (Ruled-out) Vitamin B12 deficiency (Chronic 02/19/11) Surgical History History of gastric bypass (Inactive ~2003) History of Cris-en-Y gastric bypass (Inactive ~2003) History of total shoulder replacement (Inactive ~12/2015) S/P laparoscopic cholecystectomy (Inactive 10/18/18) S/P lumbar laminectomy (Inactive ~10/2017) Family History Father No problems noted. Mother No problems noted. 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 yeimy/spiritism: [employer] travel history: over 6 months ago and other Smoking Status: Former smoker Tobacco: How many years used: 10 Smokeless tobacco user: other quit status: quit date established second hand exposure: Yes (Childhood) alcohol intake: current substance use type: does not use Smoking Status: Former smoker alcohol intake frequency: a few times a month Substance Use Type: does not use Exam Narrative Exam Narrative: PHYSICAL EXAM: CONSTITUTIONAL: Awake, Alert, Oriented, Coherent, Cooperative in NAD. Does not appear toxic or ill. HEAD: AT/NC EENT: PERRL, FROM of eyes, no discharge, no nystagmus NOSE:No epistaxis or nasal drainage MOUTH:Oral mucosa is moist and pink, posterior pharynx is without erythema or exudate. NECK: Supple, no obvious JVD, Trachea is midline without stridor, no palpable LN. SPINE: Palpation of the cervical, Thoracic, Lumbar or Sacral spine reveals no gross deformity or tenderness. No CVA tenderness. THORAX: No deformity, retractions, chest wall tenderness. LUNGS: Clear, symmetrical breath sounds without respiratory distress. HEART: Normal heart tones, regular rhythm and rate without murmur. ABDOMEN: Obese, globular, doughy, rotund, soft, nontender no palpable mass. EXTREMITIES: No edema, deformity, tenderness or cyanosis. SKIN: No rash, bruising, petechiae or purpura. NEURO: Awake, alert, oriented, conversive, cranial nerves II-XII are symmetrical , moves all 4 extremities and is ambulatory. The patient has an intention tremor. His visual ortiz are intact. Finger to nose is within normal limits. He has the ability to oppose all of his fingers to his thumbs simultaneously with say intact cerebellar functions. Sensation is symmetrical. The patient has slightly increased tone on the left side. But no drift of his arms or his legs. Deep tendon reflexes are 1+. MENTAL HEALTH: Does not appear anxious or depressed. Initial Vital Signs Initial Vital Signs: Vital Signs Temperature 99.5 F 09/30/19 13:02 Pulse Rate 93 H 09/30/19 13:02 Respiratory Rate 20 09/30/19 13:02 Blood Pressure 139/91 H 09/30/19 13:02 Pulse Oximetry 96 09/30/19 13:02 Scores NIH Stroke Scale Level of Conciousness: Alert, keenly responsive Ask month/age: Answers both questions correctly. Open/close eyes, close hand: Performs both tasks correctly Best gaze horizontal: Normal Visual ortiz: No visual loss Facial palsy: Normal symetrical movement Left arm drift: No drift for full 10 sec Right arm drift: No drift for full 10 sec Left leg drift: No drift for full 10 sec Right leg drift: No drift for full 10 sec Limb ataxia: Absent Sensory on face/arms/legs: Normal, no sensory loss Best language: No aphasia, normal Dysarthria: Normal Extinction or inattention: No abnormality Total NIH Stroke scale score: 0 Course Course Course Narrative: 1341: The patient has no focal neurological deficit at this time. His NIH stroke scale by my review is 0. The patient states that he was last normal 3-4 days ago. The question is whether not the patient is really h aving multiple strokes, TIAs verses vascular complications secondary to complex migraine headaches.. The patient has a chronic persistent essential tremor. 1600: The patient's laboratory chemistries reveal a CPK of 786. Troponin is less than 0.012. ESR is 1. CRP is less than 0.5. CT angiogram of the patient's head and neck revealed: 1. Mild atherosclerosis of the bilateral proximal internal carotid arteries without a high-grade area of narrowing. 2. Possible moderate narrowing involving the origin of the left vertebral artery. The vertebral arteries are otherwise unremarkable. 3. The intracranial arteries are widely patent without evidence of occlusion, high-grade narrowing or aneurysm. 4. No abnormal enhancement of the brain. 1620: Patient states that he had his chest x-ray performed however we do not see the chest x-ray on PACS. Radiology has been called to check on status. 1624: The patient's chest x-ray report revealed that there is no acute cardiopulmonary pathology. The patient states that his headache is coming back and feels like a migraine. The patient will be administered sumatriptan subcutanious because it helped him with his headache the last time. The spitalist will be called to admit the patient observation status for IV rehydration and evaluation of his CPK/rhabdomyolysis. 1652: The patient will be administered a 2nd L of normal saline and the CPK rechecked. The hospitalist has been paged to consider admitting the patient observation status for continued IV hydration for his apparent rhabdomyolysis. The patient ambulated with his walker without difficulty to the bathroom. Prior to my re-evaluation he informed the nurse that he was feeling much improved and was ready to go home in his headache had resolved. However, when I went in the room with the nurse he told me that his headache was back in recurrent. A dose of sumatriptan was administered subcutaniously since he has an allergy to Toradol. 1711: Does porter with , she said this is not quite rhabdomyolysis but will administer a 2nd L of fluid recheck her CPK and call her back. 1841 The patient's repeat CPK remains pending. 1900 the patient's repeat CPK is exactly the same after 2 L of fluid at 786. The patient has decided to stay and be admitted observation status. Orders Ordered: Acetaminophen (Tylenol) 650 mg PO Q6HR PRN PRN Reason: Fever/Mild Pain (1-3) Al Hydrox/Mg Hydrox/Simethicone (Maalox Plus) 30 ml PO Q6HR PRN PRN Reason: Dyspepsia Albuterol (Proventil) 1.25 mg INH Q4H PRN PRN Reason: Shortness Of Breath Albuterol/Ipratropium (Combivent Respimat) 2 puff INH RTBID [facility] Apixaban (Eliquis) 5 mg PO BID [facility] Last Admin: 09/30/19 22:27 Dose: 5 mg Documented by: SHELTON Baclofen (Lioresal) 10 mg PO TID [facility] Bisacodyl (Dulcolax) 10 mg ID DAILY PRN PRN Reason: Constipation Bupropion HCl (Wellbutrin Xl) 300 mg PO DAILY [facility] Calcium Carbonate (Tums) 1,000 mg PO Q4HR PRN PRN Reason: Dyspepsia Calcium Citrate (Citracal) 400 mg PO BID [facility] Clonazepam (Klonopin) 2 mg PO BID [facility] Last Admin: 10/01/19 05:40 Dose: 2 mg Documented by: Admin: 09/30/19 22:27 Dose: 2 mg Documented by: SHELTON Duloxetine HCl (Cymbalta) 60 mg PO BID [facility] Last Admin: 09/30/19 22:27 Dose: 60 mg Documented by: SHELTON Heparin Sodium (Porcine) (Heparin Flush (Port)) 500 unit IV PRN PRN PRN Reason: Flush Last Admin: 09/30/19 22:29 Dose: 500 unit Documented by: SHELTON Heparin Sodium (Porcine) (Heparin Flush (Port)) 500 unit IV BID [facility] Sodium Chloride (Normal Saline 0.9%) 1,000 mls @ 75 mls/hr IV CONT [facility] Last Admin: 10/01/19 05:35 Dose: 75 mls/hr Documented by: Infusion: 10/01/19 05:35 Dose: 100 mls/hr Documented by: Admin: 10/01/19 00:54 Dose: 100 mls/hr Documented by: RIVAS Levothyroxine Sodium (Synthroid) 100 mcg PO QACBREAK [facility] Last Admin: 10/01/19 05:40 Dose: 100 mcg Documented by: RIVAS Lidocaine (Lidoderm) 1 each TOP DAILY [facility] Liothyronine Sodium (Cytomel) 12.5 mcg PO DAILY [facility] [place] Carbonate ([place] Carbonate) 600 mg PO BEDTIME [facility] Last Admin: 09/30/19 22:27 Dose: 600 mg Documented by: SHELTON Metoprolol Tartrate (Lopressor) 25 mg PO BID [facility] Last Admin: 09/30/19 22:27 Dose: 25 mg Documented by: SHELTON Naloxone HCl (Narcan) 0.2 mg IV Q2MIN PRN PRN Reason: Opiate Reversal Fluticasone Furoate- Vilanterol [Breo Ellipta] 1 puff INH DAILY [facility] Ondansetron HCl (Zofran) 4 mg IV Q8HR PRN PRN Reason: Nausea And Vomiting Pantoprazole Sodium (Protonix) 20 mg PO 0600 [facility] Last Admin: 10/01/19 05:37 Dose: 20 mg Documented by: RIVAS Prochlorperazine (Compazine) 10 mg PO Q8H PRN PRN Reason: nausea and vomiting Silver Sulfadiazine (Silvadene) 1 applic TOP DAILY [facility] Simvastatin (Zocor) 20 mg PO BEDTIME [facility] Sodium Chloride (Normal Saline 0.9% Flush) 10 ml IV PRN PRN PRN Reason: Flush Last Admin: 10/01/19 05:30 Dose: 10 ml Documented by: Admin: 10/01/19 00:54 Dose: 10 ml Documented by: RIVAS Sumatriptan Succinate (Imitrex) 100 mg PO NOW PRN PRN Reason: Headache Tamsulosin HCl (Flomax) 0.4 mg PO DAILY ROSI Discontinued Medications Sodium Chloride (Normal Saline 0.9%) 1,000 mls @ 1,000 mls/hr IV BOLUS ONE Stop: 09/30/19 14:18 Last Infusion: 09/30/19 14:55 Dose: 0 mls/hr Documented by: Admin: 09/30/19 13:53 Dose: 1,000 mls/hr Documented by: NAVJOT Sodium Chloride (Normal Saline 0.9%) 1,000 mls @ 1,000 mls/hr IV BOLUS ONE Stop: 09/30/19 17:16 Last Infusion: 09/30/19 17:45 Dose: 0 mls/hr Documented by: Admin: 09/30/19 16:44 Dose: 1,000 mls/hr Documented by: NAVJOT Sodium Chloride (Normal Saline 0.9%) 1,000 mls @ 150 mls/hr IV CONT ROSI Stop: 09/30/19 20:46 Last Infusion: 09/30/19 20:00 Dose: 0 mls/hr Documented by: Admin: 09/30/19 18:14 Dose: 150 mls/hr Documented by: NAVJOT Methylprednisolone (Solu-Medrol 125 Mg Vial) 125 mg IV NOW ONE Stop: 09/30/19 13:20 Last Admin: 09/30/19 13:52 Dose: 125 mg Documented by: NAVJOT Metoclopramide HCl (Reglan) 10 mg IV NOW ONE Stop: 09/30/19 13:17 Last Admin: 09/30/19 13:52 Dose: 10 mg Documented by: NAVJOT Sumatriptan Succinate (Imitrex) 6 mg SUBCUT NOW ONE Stop: 09/30/19 16:25 Last Admin: 09/30/19 16:45 Dose: 6 mg Documented by: NAVJOT Vital Signs Vital signs: Vital Signs - 8 hr 09/30/19 13:02 09/30/19 13:45 09/30/19 14:00 Temperature 99.5 F Pulse Rate 93 H 81 82 Pulse Rate [Orthostatic Lying] Pulse Rate [Orthostatic Standing] Respiratory Rate 20 12 19 Blood Pressure 139/91 H Blood Pressure [Left Arm] 125/72 100/70 Blood Pressure [Orthostatic Lying] Blood Pressure [Orthostatic Standing] Pulse Oximetry 96 93 95 09/30/19 14:30 09/30/19 15:00 09/30/19 15:30 Temperature Pulse Rate 75 72 74 Pulse Rate [Orthostatic Lying] Pulse Rate [Orthostatic Standing] Respiratory Rate 12 15 14 Blood Pressure Blood Pressure [Left Arm] 111/65 117/68 121/65 Blood Pressure [Orthostatic Lying] Blood Pressure [Orthostatic Standing] Pulse Oximetry 93 93 92 09/30/19 16:00 09/30/19 16:30 09/30/19 17:00 Temperature Pulse Rate 71 75 79 Pulse Rate [Orthostatic Lying] Pulse Rate [Orthostatic Standing] Respiratory Rate 12 14 22 Blood Pressure Blood Pressure [Left Arm] 121/72 134/82 120/70 Blood Pressure [Orthostatic Lying] Blood Pressure [Orthostatic Standing] Pulse Oximetry 94 97 94 09/30/19 17:01 09/30/19 18:00 Temperature Pulse Rate 84 Pulse Rate [Orthostatic Lying] 73 Pulse Rate [Orthostatic Standing] 79 Respiratory Rate 21 Blood Pressure Blood Pressure [Left Arm] 121/76 Blood Pressure [Orthostatic Lying] 134/82 Blood Pressure [Orthostatic Standing] 120/70 Pulse Oximetry 95 MDM - Neuro Symptoms/Deficit Medical Records Attestation: I reviewed the patient's medical records. Lab Data Attestation: I reviewed the patient's lab results. Result diagrams: 10/01/19 05:30 10/01/19 05:30 Labs: Lab Results 09/30/19 09/30/19 09/30/19 Range/Units 13:25 13:25 13:25 WBC 9.1 (4.5-11.0) X10^3/uL RBC 5.30 (4.5-5.9) X10^6/uL Hgb 17.0 (13.5-17.5) g/dL Hct 49.1 (41-53) % MCV 92.6 (80-100) fL MCH 32.0 (26-34) PG MCHC 34.6 (30-36) % RDW 13.4 (11.6-14.8) % Plt Count 184 (150-400) X10^3/uL Neut % (Auto) 70.4 (50-75) % Lymph % (Auto) 17.1 L (25-40) % [place] % (Auto) 11.5 (3-14) % Eos % (Auto) 0.6 L (2-4) % Baso % (Auto) 0.4 (0-2) % Neut # (Auto) 6400 (0608-2752) /uL Lymph # (Auto) 1600 (5653-8301) /uL [place] # (Auto) 1000 H (0-900) /uL Eos # (Auto) 100 (0-450) /uL Baso # (Auto) 0 (0-100) /uL ESR 1 (0-15) MM/HR Sodium 137 (137-145) mmol/L Potassium 4.0 (3.4-5.1) mmol/L Chloride 101 (98-107) mmol/L Carbon Dioxide 31 (22-32) mmol/L BUN 25 H (9-20) mg/dL Creatinine 1.23 (0.66-1.25) mg/dL Estimated GFR 59.1 L (>60) mL/min BUN/Creatinine Ratio 20.3 (6-22) Glucose 94 (80-110) mg/dL Calcium 10.2 (8.4-10.2) mg/dL Magnesium 2.0 (1.6-2.3) mg/dL Total Bilirubin 0.7 (0.2-1.3) mg/dL AST 62 H (17-59) IU/L ALT 46 (<50) IU/L Alkaline Phosphatase 93 (38-126) U/L Total Creatine Kinase 786 H (55-170) U/L CK-MB (CK-2) 4.29 H (<2.37) ng/mL CK-MB (CK-2) Rel Index 0.5 L (1.5-5.0) % Troponin I < 0.012 (0.01-0.034) ng/mL C-Reactive Protein < 0.5 (<1.0) mg/dL NT-Pro-B Natriuret Pep 155 H (<125) pg/mL Total Protein 7.3 (6.3-8.2) g/dL Albumin 4.4 (3.5-5.0) g/dL Globulin 2.9 (1.7-4.1) g/dL Albumin/Globulin Ratio 1.5 (1.0-2.8) 06/21/20 Range/Units 18:20 WBC (4.5-11.0) X10^3/uL RBC (4.5-5.9) X10^6/uL Hgb (13.5-17.5) g/dL Hct (41-53) % MCV (80-100) fL MCH (26-34) PG MCHC (30-36) % RDW (11.6-14.8) % Plt Count (150-400) X10^3/uL Neut % (Auto) (50-75) % Lymph % (Auto) (25-40) % [place] % (Auto) (3-14) % Eos % (Auto) (2-4) % Baso % (Auto) (0-2) % Neut # (Auto) (4269-9448) /uL Lymph # (Auto) (2921-7959) /uL [place] # (Auto) (0-900) /uL Eos # (Auto) (0-450) /uL Baso # (Auto) (0-100) /uL ESR (0-15) MM/HR Sodium (137-145) mmol/L Potassium (3.4-5.1) mmol/L Chloride (98-107) mmol/L Carbon Dioxide (22-32) mmol/L BUN (9-20) mg/dL Creatinine (0.66-1.25) mg/dL Estimated GFR (>60) mL/min BUN/Creatinine Ratio (6-22) Glucose (80-110) mg/dL Calcium (8.4-10.2) mg/dL Magnesium (1.6-2.3) mg/dL Total Bilirubin (0.2-1.3) mg/dL AST (17-59) IU/L ALT (<50) IU/L Alkaline Phosphatase (38-126) U/L Total Creatine Kinase 786 H (55-170) U/L CK-MB (CK-2) (<2.37) ng/mL CK-MB (CK-2) Rel Index (1.5-5.0) % Troponin I (0.01-0.034) ng/mL C-Reactive Protein (<1.0) mg/dL NT-Pro-B Natriuret Pep (<125) pg/mL Total Protein (6.3-8.2) g/dL Albumin (3.5-5.0) g/dL Globulin (1.7-4.1) g/dL Albumin/Globulin Ratio (1.0-2.8) Urine Dip Bedside Urine Glucose Negative Bedside Urine Bilirubin - Negative Bedside Urine Ketone - Negative Urine Specific [place] 1.030 Bedside Urine Occult Blood - Negative Bedside Urine pH 6.0 Bedside Urine Protein +/- 15 Bedside Urine Urobilinogen - Negative Bedside Urine Nitrite - Negative Bedside Urine Leukocytes - Negative Esterase ECG Data Attestation: I personally reviewed and interpreted this ECG as follows: Interpretation: The patient's EKG reveals a normal sinus rhythm with a ventricular rate of 94. Intervals are normal QTC is 437 milliseconds left axis deviation. The patient has a Q-wave in lead III, aVF and a QS wave in lead V1. T-waves are inverted in lead III and in V1. There are no other acute diagnostic ST or T-wave changes. The Q-waves in leads III and AVF suggest that the patient may have had an inferior infarct of undetermined age. Discharge Plan Departure Patient Disposition: Admitted as Observation Clinical Impression: Weakness generalized, Dysequilibrium Rhabdomyolysis Qualifiers: Rhabdomyolysis type: non-traumatic Qualified Code(s): M62.82 - Rhabdomyolysis Migraine Qualifiers: Migraine type: unspecified Status migrainosus presence: without status migrainosus Intractability: not intractable Qualified Code(s): G43.909 - Migraine, unspecified, not intractable, without status migrainosus Discharge Date/Time: 09/30/19 20:00 Referrals: Eleazar Armstrong MD [Primary Care Provider] - Admit Date/Time: 09/30/19 19:24 Admit Provider: Tai Samayoa
[2019-09-30 13:38] LABS: Add Manual Diff / Slide Review NO; Basophils Absolute Auto 0 /uL (0-100); Basophils Percent Auto 0.4 % (0-2); Eosinophils Absolute Auto 100 /uL (0-450); Eosinophils Percent Auto 0.6 % (2-4); Hematocrit 49.1 % (41-53); Lymphocytes Absolute Auto 1600 /uL (1100-4500); Lymphocytes Percent Auto 17.1 % (25-40); Mean Corpuscular HGB Conc 34.6 % (30-36); Mean Corpuscular Volume 92.6 fL (80-100); Monocytes Absolute Auto 1000 /uL (0-900); Monocytes Percent Auto 11.5 % (3-14); Neutrophils Absolute Auto 6400 /uL (1500-7000); Neutrophils Percent Auto 70.4 % (50-75); Platelet Count 184 X10^3/uL (150-400); Red Cell Distribution Width 13.4 % (11.6-14.8); White Blood Cell Count 9.1 X10^3/uL (4.5-11.0)
[2019-09-30 13:51] LABS: Alanine Aminotransferase 46 IU/L (<50); Albumin 4.4 g/dL (3.5-5.0); Albumin Globulin Ratio 1.5 (1.0-2.8); Alkaline Phosphatase 93 U/L (38-126); Aspartate Aminotransferase 62 IU/L (17-59); BUN Creatinine Ratio 20.3 (6-22); Bilirubin Total 0.7 mg/dL (0.2-1.3); Blood Urea Nitrogen 25 mg/dL (9-20); Calcium 10.2 mg/dL (8.4-10.2); Carbon Dioxide 31 mmol/L (22-32); Chloride 101 mmol/L (98-107); Creatine Kinase 786 U/L (55-170); Estimated Glomerular Filt Rate 59.1 mL/min (>60); Globulin 2.9 g/dL (1.7-4.1); Glucose 94 mg/dL (80-110); HEMOLYSIS < 15 (0-50); Sodium 137 mmol/L (137-145); Total Protein 7.3 g/dL (6.3-8.2)
[2019-09-30] MEDS: methylPREDNISolone 125 MG/2 ML VIAL IV (13:52)
[2019-09-30] MEDS: METOCLOPRAMIDE 10 MG/2 ML INJ IV (13:52)
[2019-09-30 13:53] LABS: C-Reactive Protein Quant < 0.5 mg/dL (<1.0)
[2019-09-30] MEDS: SODIUM CHLORIDE 0.9% 1,000 ML 1000 ML IV ×2 (13:53→16:44)
[2019-09-30 13:57] LABS: Erythrocyte Sedimentation Rate 1 MM/HR (0-15)
[2019-09-30 13:59] LABS: NT-proBNP (BNP-Adult 18+) 155 pg/mL (<125); Troponin I < 0.012 ng/mL (0.01-0.034)
[2019-09-30 14:04] LABS: CKMB % Relative Index 0.5 % (1.5-5.0); Creatine Kinase MB 4.29 ng/mL (<2.37)
[2019-09-30] MEDS: SUMAtriptan 6 MG/0.5 ML VIAL SUBCUT (16:45)
[2019-09-30] MEDS: SODIUM CHLORIDE 0.9% 1,000 ML 150 ML IV (18:14)
[2019-09-30 18:44] LABS: Creatine Kinase 786 U/L (55-170)
--- NOTE | 2019-09-30 20:53 | DI.MRI.S_ITS ---
PROCEDURE: MR HEAD/BRAIN WO CON INDICATIONS: Disequilibrium, ataxia, history multiple strokes TECHNIQUE: Non-contrast axial T1 spin echo, axial T2 fast spin echo, sagittal and axial FLAIR, coronal T2 fast spin echo, axial gradient echo, axial diffusion and ADC through the brain. COMPARISON: [facility], CT, CT ANGIO HEAD AND NECK, 09/30/2019, 13:55. [facility], CT, CT HEAD/BRAIN WO CON, 09/30/2019, 13:20. [facility], MR, BRAIN WITHOUT CONTRAST, 06/03/2011, 9:29. FINDINGS: Image quality: Extensive patient motion artifact. Nondiagnostic study. CSF spaces: Ventricles appear symmetric in size and shape. Basal cisterns are patent. No extra-axial fluid collections. Brain: There is extensive patient motion artifact present on all sequences. Acute infarct cannot be excluded. Age-related volume loss and small vessel ischemic change is noted. Skull and face: Calvarial bone marrow is normal in signal. Orbits are normal. Sinuses: Sinuses and mastoids are clear. IMPRESSION: Extensive patient motion artifact results in a nondiagnostic study for acute infarct. Comment: Patient had been given sedation prior to the study. Patient could not tolerate the examination. Study ended when patient started exiting the MRI gantry. Dictated by: Kp Renteria M.D. on 10/01/2019 at 11:24 Approved by: Kp Renteria M.D. on 10/01/2019 at 11:29
--- NOTE | 2019-09-30 20:53 | DI.MRI.S_ITS ---
PROCEDURE: MR STROKE Pre- and post-contrast brain MRI, non-contrast brain MR angiogram, pre- and postcontrast neck MR angiogram INDICATIONS: Disequilibrium, ataxia, history multiple strokes TECHNIQUE: Brain: Noncontrast axial T1 spin echo, axial T2 fast spin echo, sagittal and axial FLAIR, coronal T2 fast spin echo, axial gradient echo, axial diffusion and ADC through the brain. After the administration of contrast, axial 3D VIBE of the cranial vasculature and brain. Brain MRA: Non-contrast 3-D time of flight MR angiogram, with multiple vqwfkaf-kooryylxn-eqgeijgxod (MIP) reformats performed. Neck MRA: Axial and sagittal TruFISP through the neck. Coronal dynamic MR angiogram during administration of contrast in the arterial and venous phases, with 3-dimenstional bxtozbz-sbghwqlgy-zpnurqmvzs (MIP) reformats constructed from subtraction images. COMPARISON: [facility], MR, BRAIN WITHOUT CONTRAST, 05/04/2005, 8:06. [facility], MR, BRAIN WITHOUT CONTRAST, 06/03/2011, 9:29. [facility], CT, CT HEAD/BRAIN WO CON, 09/30/2019, 13:20. [facility], MR, STROKE PROTOCOL, 12/17/2010, 11:28. [facility], CT, CT ANGIO HEAD AND NECK, 09/30/2019, 13:55. [facility], CT, HEAD WITHOUT CONTRAST, 04/21/2017, 12:27. [facility], MR, STROKE PROTOCOL, 04/15/2017, 17:33. FINDINGS: Image quality: Diagnostic, with note made of motion artifact. BRAIN: CSF spaces: Ventricles are normal in size and shape. Basal cisterns are patent. No extra-axial fluid collections. Brain: No intracranial bleeds or mass effects. Mehta-white matter interface is normal. Diffusion weighted images show no acute ischemic insults. Brainstem appears normal. Normal intravascular flow voids are present. There is a remote right frontoparietal infarction seen, with volume loss and encephalomalacia. No abnormal intracranial enhancement. Skull and face: Calvarial marrow signal is normal. Within the medial aspect of the left orbit, there is an enhancing mass again seen, which measures 14 x 10 x 9 mm. This is not significantly changed compared to 2018. This is also not significantly compared to multiple prior studies. Orbits otherwise appear normal. Sinuses: Sinuses and mastoids are clear. BRAIN MR ANGIOGRAM: Anterior circulation: Intracranial internal carotid arteries are normal in size and enhancement. The flow within the paired anterior cerebral arteries is normal and symmetric. The flow within the middle cerebral arteries is normal and symmetric. The anterior communicating artery is seen. No stenoses, occlusions, or aneurysms. Posterior circulation: The visualized portions of the vertebral arteries demonstrate normal caliber, and join to form a normal appearing basilar artery. The flow within the posterior cerebral arteries is normal and symmetric. No stenoses, occlusions, or aneurysms. NECK MR ANGIOGRAM: Carotids: Great vessels demonstrate a conventional anatomy as they arise from the aortic arch. The origins of the common carotid arteries appear patent. The calibers and courses of both common carotid arteries are normal. The bifurcation regions appear normal bilaterally. The internal carotid arteries demonstrate normal course and caliber. Posterior circulation: There is at least a 50% stenosis seen involving the origin left vertebral artery. No significant right vertebral artery origin abnormality is seen. More superior portions of both vertebral arteries demonstrate normal course and caliber, and join to form a normal appearing basilar artery. Miscellaneous: Subclavian arteries appear patent. Pre-contrast images through the neck show no soft tissue abnormalities. IMPRESSION: BRAIN MRI: No findings of acute or subacute infarction can be seen. Enhancing mass again seen along the medial aspect of the left orbit, which is similar to prior examinations. Remote right frontoparietal infarction. BRAIN MR ANGIOGRAM: No significant arterial abnormality is seen. NECK MR ANGIOGRAM: There is a focal stenosis seen involving the origin of the left vertebral artery, at least 50%. Dictated by: Dayne Desai M.D. on 10/01/2019 at 13:48 Approved by: Dayne Desai M.D. on 10/01/2019 at 13:58
[2019-09-30] MEDS: APIXABAN 5 MG TABLET PO (22:27)
[2019-09-30] MEDS: METOPROLOL IR 25 MG TABLET PO (22:27)
[2019-09-30] MEDS: DULOXETINE 30 MG CAPSULE 60 MG PO (22:27)
[2019-09-30] MEDS: LITHIUM 300 MG IR CAPSULE 600 MG PO (22:27)
[2019-09-30] MEDS: clonazePAM 0.5 MG TABLET 2 MG PO (22:27)
--- NOTE | 2019-09-30 23:22 | PC.NURSE ---
Pt arrived 2004 via stretcher. A&Ox3. 97%RA. passed swallow eval. pt had some sandwhich and pudding for snack. [id number]. back pain 05/21. pt refused tylenol. oriented pt to the room. call light in reach. bed alarm active.
--- NOTE | 2019-10-01 00:20 | PM.HP.1 ---
History of Present Illness History of Present Illness Date Patient Seen: 09/30/19 Time Patient Seen: 20:45 Chief complaint: hx of stroke/tia x1 day Narrative: Mr. Mario Hemphill is a 64-year-old right-handed male with a past medical history significant for multiple strokes, migraines, cognitive disorder, paroxysmal atrial fibrillation, patent foramen ovale, COPD, asthma, chronic low back pain, essential tremors, anxiety depression and PTSD who presents to the emergency department concerned that he is having another stroke. Patient has a history of 4-5 neurological events including CVAs and TIAs. He reports he has been having progressive disequilibrium weakness with fatigue and difficulty thinking focusing and concentrating for 2 weeks with symptoms becoming significantly worse today. The patient denies complaints of headaches or visual changes no numbness or tingling and sustained no falls. The patient has been evaluated at the headache clinic for ongoing migraines and presently has a headache bilateral temples by me eyes without photophobia or phonophobia. He has been taking sumatriptan daily reported 2-3 tablets per day. He is unable to tolerate NSAIDs related to previous gastric bypass. Patient also continues to have back pain and was recently started on Robaxin which the patient has stopped taking finding no benefit. He continues to complain of back pain and is requesting stronger muscle relaxant. Is of note that the patient is on a controlled substance agreement with prior opiate dependence. Will avoid benzodiazepines and opiates for pain management. The patient denies acute illness though he does note he yesterday he had an episode of diarrhea. He reports no for complaints of fevers but will sometimes have chills and night. He has had no known COVID-19 exposures. Denies sinus pain, nasal congestion or sore throat and denies neck pain. He denies complaints of chest pain will have occasional palpitations. He describes surgical dyspnea and has had a dry nonproductive cough for 2 weeks. He has had no nausea vomiting and aside from 1 diarrhea stool has been had normal formed BMs, he denies hematochezia or melena. He reports generalized weakness and fatigue and will steady himself on the ivey feeling that he might fall. He reports variable difficulty urinating indicating he will feel he needs to void has difficulty doing so and later will void with a strong stream. Arrival to the ER patient's temperature 99.5?, heart rate 93, blood pressure 139/91, respiratory rate of 20 saturating 96% on room air. A CT Frank obtained which finds mild atherosclerosis of the bilateral proximal internal carotid arteries without high-grade stenosis, possible moderate narrowing at the origin of the left vertebral artery. A chest x-ray is stained which finds no acute cardiopulmonary processes. On laboratory analysis he has white count of 9.1, hemoglobin of 17.0 and hematocrit of 49.1 platelets of 184. His electrolytes within normal range with a BUN of 25 and creatinine 1.23. His nonfasting glucose is 94. His magnesium 2.0. On LFTs he has a total bilirubin of 0.7, AST of 62, ALT of 46 and alkaline phosphatase of 93. His albumin is 4.4. He has a total CK of 786, a CK-MB of 4.29, index low at 0.5, a troponin of less than 0.012. He has a proBNP of 155, CRP is low at less than 0.5. Well in the ER the patient received sumatriptan 6 mg and methylprednisolone 125 mg get metoclopramide. He also received 2 L normal saline after which CPK was Re checked and found unchanged remaining at 786. Patient is admitted to the medicine service for rule out CVA generalized weakness and dehydration. Patient History Medical History Anxiety (Chronic) Asthma (Acute) Chronic left shoulder pain (Chronic 01/20/16) Chronic obstructive pulmonary disease (Chronic 08/05/17) Chronic pain syndrome (Chronic 11/08/16) Cognitive disorder (Chronic 04/24/14) 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) Essential tremor (Acute) H/O migraine (Inactive) H/O renal calculi (Inactive) History of stroke (Inactive) Hypersomnia (Chronic) Hypothyroidism (Chronic) Insomnia (Chronic) Iron deficiency (Chronic) Major depressive disorder, recurrent episode, severe (Chronic) Mixed hyperlipidemia (Chronic) Narcotic dependence (Resolved 09/01/16) Obesity with body mass index (BMI) of 30.0 to 39.9 (Chronic 12/06/14) Paroxysmal atrial fibrillation (Chronic) Patent foramen ovale (Resolved) Pneumonia (Resolved) Post traumatic stress disorder (PTSD) (Chronic) Psoriasis (Chronic) S/P ECT (electroconvulsive therapy) (Acute) Sarcoidosis (Chronic) Sleep apnea (Ruled-out) Vitamin B12 deficiency (Chronic 02/19/11) Surgical History History of gastric bypass (Inactive ~2003) History of Cris-en-Y gastric bypass (Inactive ~2003) History of total shoulder replacement (Inactive ~12/2015) S/P laparoscopic cholecystectomy (Inactive 10/18/18) S/P lumbar laminectomy (Inactive ~10/2017) Family & Social History Family History Father No problems noted. Mother No problems noted. Social History: household members spouse Prior Living Arrangements House lives independently Yes caregiver/support person No Safety & Behavioral: Feels Safe in Current Yes Environment Been Physically Hurt or No Threatened By a Person Suicidal Ideation Description None Suicide Plan Description No Plan Tobacco & Substance use: Smoking Status Former smoker alcohol intake current alcohol intake frequency a few times a month Substance Use Type does not use Meds Home Medications and Allergies Home Medications Medication Instructions Recorded Confirmed Type Breo Ellipta 1 puff INH DAILY #0 12/03/16 09/30/19 History Combivent Respimat See Rx Instructions .ROUTE 04/15/17 09/30/19 History .COMPLEX #0 MDD 6 albuterol sulfate 1.25 mg INH Q4HP PRN #0 05/24/17 09/30/19 History Vitamin B-12 1 tab PO DAILY 02/21/18 09/30/19 History desonide 1 applic TOPICAL PRN PRN 02/21/18 09/30/19 History calcium citrate 500 mg PO BID tab 03/28/18 09/30/19 History montelukast 10 mg tablet 10 mg PO BEDTIME #14 tab 05/18/18 09/30/19 Rx apixaban 5 mg tablet 5 mg PO BID 05/30/18 09/30/19 History armodafinil 250 mg tablet 250 mg PO ONCE PRN 01/19/19 09/30/19 History liothyronine 12.5 mcg PO DAILY 01/22/19 09/30/19 History tamsulosin 0.4 mg PO DAILY 01/22/19 09/30/19 History prochlorperazine maleate 10 mg 10 mg PO Q8H PRN #60 tab 02/06/19 09/30/19 Rx tablet lidocaine 5 % topical patch 1 patch TOP .COMPLEX #15 each 03/06/19 09/30/19 Rx ketoconazole 2 % shampoo See Rx Instructions .ROUTE 03/16/19 09/30/19 Rx .COMPLEX #360 milliliter clobetasol 0.05 % topical ointment 1 applic TOPICAL SUSA PRN 04/18/19 09/30/19 History eszopiclone 2 mg tablet 2 mg PO BEDTIME PRN tab 04/18/19 09/30/19 History multivitamin 1 tab PO TID tab 04/18/19 09/30/19 History lithium carbonate 600 mg capsule 600 mg PO BEDTIME #90 cap 05/09/19 09/30/19 Rx levothyroxine 100 mcg tablet 100 mcg PO QAM #90 tab 05/18/19 09/30/19 Rx Disabled Parking #1 each 08/02/19 08/02/19 Rx duloxetine 60 mg capsule,delayed 60 mg PO BID #60 cap 08/06/19 09/30/19 Rx release clonazepam 2 mg tablet See Rx Instructions .ROUTE 09/07/19 09/30/19 Rx .COMPLEX #90 tab metoprolol tartrate 25 mg tablet 25 mg PO BID #180 tab 09/12/19 09/30/19 Rx bupropion HCl 300 mg 24 hr tablet, See Rx Instructions .ROUTE 09/28/19 09/30/19 Rx extended release .COMPLEX #90 tab sumatriptan succinate 100 mg PO ONCE PRN 09/30/19 09/30/19 History Allergies Allergy/AdvReac Type Severity Reaction Status Date / Time doxycycline [DOXYCYCLINE] Allergy Mild ITCHING Verified 09/30/19 13:07 ketorolac [KETOROLAC] Allergy Unknown Verified 09/30/19 13:07 NSAIDS (Non-Steroidal AdvReac Unknown TO AVOID Verified 09/30/19 13:07 Anti-Inflamma R/T [NSAIDS (NON-STEROIDAL GASTRIC ANTI-INFLAMMA] BYPASS controlled substance AdvReac Uncoded 09/30/19 13:07 agreement Review of Systems Review of Systems ROS: Yes All systems reviewed with the patient and are negative except as otherwise documented Exam Vital Signs (past 8 hours): - 09/30/19 16:30 09/30/19 17:00 09/30/19 17:01 Temperature Pulse Rate 75 79 Pulse Rate [Orthostatic Lying] 73 Pulse Rate [Orthostatic Standing] 79 Respiratory Rate 14 22 Blood Pressure Blood Pressure [Left Arm] 134/82 120/70 Blood Pressure [Orthostatic Lying] 134/82 Blood Pressure [Orthostatic Standing] 120/70 Pulse Oximetry 97 94 09/30/19 18:00 09/30/19 19:09 09/30/19 19:34 Temperature Pulse Rate 84 77 Pulse Rate [Orthostatic Lying] Pulse Rate [Orthostatic Standing] Respiratory Rate 21 12 Blood Pressure Blood Pressure [Left Arm] 121/76 124/75 Blood Pressure [Orthostatic Lying] Blood Pressure [Orthostatic Standing] Pulse Oximetry 95 94 09/30/19 20:05 09/30/19 21:52 09/30/19 23:30 Temperature 98.1 F 98.3 F Pulse Rate 82 79 Pulse Rate [Orthostatic Lying] Pulse Rate [Orthostatic Standing] Respiratory Rate 19 16 Blood Pressure 140/84 107/68 Blood Pressure [Left Arm] Blood Pressure [Orthostatic Lying] Blood Pressure [Orthostatic Standing] Pulse Oximetry 97 97 93 Oxygen Delivery Method Room Air Oxygen Flow Rate 0 Narrative Exam Narrative: GENERAL APPEARANCE: well developed, obese male with a BMI of 34.4 late semi recumbent in bed in no acute distress. HEENT: Symmetrical facies, PERRLA, conjunctiva clear, EOMs intact without nystagmus, no sinus tenderness to percussion, no rhinorrhea, mucous membranes are moist and pink without lesions or exudate. NECK/THYROID: neck supple the nontender, no JVD, no thyromegaly, trachea midline. LYMPH NODES: no cervical or supraclavicular lymphadenopathy. SKIN: [place], warm and dry, no visible lesions, rashes, ulcerations or petechiae. HEART: regular rate and rhythm, S1-S2, 1/6 systolic murmur, no rubs or gallops, 1+ dorsalis pedis pulses, trace edema LUNGS: Breath sounds are diminished but clear to auscultation bilaterally, no coarseness crackles or wheezing, no cough present CHEST: Symmetrical movement, no accessory muscle use, good tidal volume. ABDOMEN: Soft, round, no abdominal tenderness, no guarding or peritoneal signs, no organomegaly, no flank or suprapubic tenderness, active bowel tones. BACK: Normal curvature, nontender to palpation, no CVA tenderness on percussion EXTREMITIES: moves all extremities, bilateral fine hand tremors, strength is 5/5 and symmetrical, no deformities or joint effusions. NEUROLOGIC: NIH score is 0, AAO x 3, cognitive recall grossly intact, cranial nerves II-XII grossly intact, sensation intact to light touch, dexterity intact without ataxia. PSYCH: Good eye contact, does not appear anxious or depressed, linear thought process, cooperative, appropriate with stable behavior Objective Labs Result Diagrams: 09/30/19 13:25 09/30/19 13:25 Labs: Laboratory Results - last 24 hr 09/30/19 09/30/19 09/30/19 13:25 13:25 13:25 WBC 9.1 RBC 5.30 Hgb 17.0 Hct 49.1 MCV 92.6 MCH 32.0 MCHC 34.6 RDW 13.4 Plt Count 184 Neut % (Auto) 70.4 Lymph % (Auto) 17.1 L [place] % (Auto) 11.5 Eos % (Auto) 0.6 L Baso % (Auto) 0.4 Neut # (Auto) 6400 Lymph # (Auto) 1600 [place] # (Auto) 1000 H Eos # (Auto) 100 Baso # (Auto) 0 ESR 1 Sodium 137 Potassium 4.0 Chloride 101 Carbon Dioxide 31 BUN 25 H Creatinine 1.23 Estimated GFR 59.1 L BUN/Creatinine Ratio 20.3 Glucose 94 Calcium 10.2 Magnesium 2.0 Total Bilirubin 0.7 AST 62 H ALT 46 Alkaline Phosphatase 93 Total Creatine Kinase 786 H CK-MB (CK-2) 4.29 H CK-MB (CK-2) Rel Index 0.5 L Troponin I < 0.012 C-Reactive Protein < 0.5 NT-Pro-B Natriuret Pep 155 H Total Protein 7.3 Albumin 4.4 Globulin 2.9 Albumin/Globulin Ratio 1.5 09/30/19 18:20 WBC RBC Hgb Hct MCV MCH MCHC RDW Plt Count Neut % (Auto) Lymph % (Auto) [place] % (Auto) Eos % (Auto) Baso % (Auto) Neut # (Auto) Lymph # (Auto) [place] # (Auto) Eos # (Auto) Baso # (Auto) ESR Sodium Potassium Chloride Carbon Dioxide BUN Creatinine Estimated GFR BUN/Creatinine Ratio Glucose Calcium Magnesium Total Bilirubin AST ALT Alkaline Phosphatase Total Creatine Kinase 786 H CK-MB (CK-2) CK-MB (CK-2) Rel Index Troponin I C-Reactive Protein NT-Pro-B Natriuret Pep Total Protein Albumin Globulin Albumin/Globulin Ratio Assessment & Plan Assessment & Plan narrative: This is a 64-year-old male patient with a history of multiple prior CVAs who presents to the ER bleeding he is having another stroke. Patient describes disequilibrium weakness fatigue and cognitive impairment for 2 weeks becoming worse today. 1. Rule out acute CVA versus complex migraine, present on admission, active. -patient has a significant history of multiple CVAs and TIAs. He presents to the ER believing he is experiencing another episode describing disequilibrium weakness fatigue and cognitive impairment. NIH stroke scale is 0. -patient has been having ongoing headache with history of migraines and is seen at headache clinic but has been taking sumatriptan reporting 3 doses sumatriptan today. -He does have an elevated CPK at 786 which could be associated with stroke. Risk factors include paroxysmal atrial fibrillation though he is presently in sinus and anticoagulated. 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 Will obtain lipid profile, ordered simvastatin 20 mg at bedtime. -obtain MRI stroke protocol in the morning differentiate between complex migraine CVA. -continue Eliquis 5 mg twice daily. 2. Migraine headaches, chronic, active. -patient is followed at the headache clinic and describes prior frontal temporal headache that has been variable over several days but worse today. -patient takes sumatriptan succinate 100 mg as needed and may repeat in 2 hours if needed with maximum dose of 2 tablets per day. -the patient endorses taking 2-3 tablets per day. He received sumatriptan 6 mg in the ER. -the patient has a controlled substance agreement in place will avoid using opiates for pain management. 3. Generalized weakness, present on admission, active -patient is found to be mildly dehydrated clinically with dry mucous membranes and elevated BUN at 25 -feeling a general weakness may also be associated with chronic mood disorder. -patient received 2 L of normal saline in the emergency department will continue normal saline at 75 cc/hour. 4. Paroxysmal atrial fibrillation, chronic, in sinus rhythm, stable -12 lead EKG finds sinus rhythm with ventricular rate of 94 with inferior Q-waves and poor R-wave progression with no indication of ischemia. -will continue current regimen of metoprolol tartrate 25 mg twice daily. -continue anticoagulation with Eliquis 5 mg twice daily. 5. Essential tremors, chronic, stable. -presently controlled with metoprolol tartrate 25 mg twice daily 6. Depression and anxiety, chronic, stable. -patient has had previous episodes of major depression and has undergone ECT therapy. He is presently followed by Dr. Murray, psychiatry. -the patient does not appear anxious nor depressed and is appropriately interactive with an appropriate mood and affect. -will continue regimen of bupropion 24HR 300 mg daily, clonazepam 2 mg tablets twice daily, eszopiclone 2 mg at bedtime and lithium carbonate 600 mg at bedtime. 7. Chronic obstructive pulmonary disease, chronic, stable. -patient presents with adequate oxygen saturation at 96% on room air, he does complain of exertional dyspnea. -patient received methylprednisolone 125 mg IV in the emergency department. -requested respiratory therapy consult evaluate and treat -will continue home regimen of albuterol nebulizer every 4 hours as needed. -patient may use own Breo inhaler 1 puff daily and order Combivent inhaler 2 puffs twice daily. 8. Hypothyroidism, chronic, stable -will continue the patient's home regimen of levothyroxine 100 mcg daily and liothronin 12.5 mg daily. 9. Dyslipidemia, chronic, stable -patient has previously been on atorvastatin though it was discontinued due to elevation in liver functions. -liver functions are normal at this time will obtain a lipid panel. -ordered simvastatin 20 mg daily. Isolation: None VTE prophylaxis: Bilateral SCDs, anticoagulated on Eliquis. IV fluid: Normal saline 75 cc/hour. Diet: Heart healthy Code status: FULL CODE, the patient designates his Milka to be his surrogate decision maker. The patient is admitted to the hospital due to the severity of his symptoms requiring further neurological evaluation. The patient is admitted as observation with expected length of stay to be less than 2 midnights. Scores GCS [place] coma scale eye opening: Spontaneous [place] coma scale verbal response: Orientated [place] coma scale motor response: Obey commands [place] coma scale total score: 15 NIHSS Level of Conciousness: Alert, keenly responsive Ask month/age: Answers both questions correctly. Open/close eyes, close hand: Performs both tasks correctly Best gaze horizontal: Normal Visual ortiz: No visual loss Facial palsy: Normal symetrical movement Left arm drift: No drift for full 10 sec Right arm drift: No drift for full 10 sec Left leg drift: No drift for full 5 sec Right leg drift: No drift for full 5 sec Limb ataxia: Absent Sensory on face/arms/legs: Normal, no sensory loss Best language: No aphasia, normal Dysarthria: Normal Extinction or inattention: No abnormality Total NIH Stroke scale score: 0
--- NOTE | 2019-10-01 00:47 | PC.NURSE ---
Patient is alert and oriented except initially stated age as 54 but able to correctly state age after 3 tries. NIH = 1. Breath sounds CTA with RA sat of 93% earlier and is now 97%; on continuous oximetry. HRR. Telemetry reading at 2211 was SR (0000 readings not yet recorded). Denies nausea. BT present and is passing flatus. Has urinary hesitancy but denies dysuria, frequency or urgency. Able to move self in bed. Due to balance problems/hx of falls is being assisted with walker when out of bed. Allevyn dressing to lateral left thigh is CDI. Bruising noted on all extremities. Wearing bilateral calf SCD's. States he is having 4/10 headache and 5/10 back/hip pain but declines offer of pain medication. Fall risk score is high and bed alarm is activated.
[2019-10-01] MEDS: SODIUM CHLORIDE 0.9% FLUSH 10 ML IV ×2 (00:54→05:30)
[2019-10-01] MEDS: SODIUM CHLORIDE 0.9% 1,000 ML 100 ML IV (00:54)
[2019-10-01 03:46] VITALS: BP 111/62; PULSE 66; RESP 17; TEMP 36.6; O2SAT 96
[2019-10-01] MEDS: SODIUM CHLORIDE 0.9% 1,000 ML 75 ML IV (05:35)
[2019-10-01] MEDS: PANTOPRAZOLE 20 MG TABLET PO (05:37)
[2019-10-01] MEDS: clonazePAM 0.5 MG TABLET 2 MG PO (05:40)
[2019-10-01] MEDS: LEVOTHYROXINE 100 MCG TABLET PO (05:40)
[2019-10-01 06:30] LABS: Add Manual Diff / Slide Review NO; Basophils Absolute Auto 0 /uL (0-100); Basophils Percent Auto 0.1 % (0-2); Eosinophils Absolute Auto 0 /uL (0-450); Hematocrit 42.7 % (41-53); Hemoglobin 14.3 g/dL (13.5-17.5); Lymphocytes Absolute Auto 600 /uL (1100-4500); Lymphocytes Percent Auto 5.8 % (25-40); Mean Corpuscular HGB Conc 33.5 % (30-36); Mean Corpuscular Volume 92.6 fL (80-100); Monocytes Absolute Auto 300 /uL (0-900); Monocytes Percent Auto 2.5 % (3-14); Neutrophils Absolute Auto 10200 /uL (1500-7000); Neutrophils Percent Auto 91.6 % (50-75); Platelet Count 170 X10^3/uL (150-400); Red Blood Cell Count 4.61 X10^6/uL (4.5-5.9); Red Cell Distribution Width 13.3 % (11.6-14.8); White Blood Cell Count 11.2 X10^3/uL (4.5-11.0)
[2019-10-01 06:36] LABS: BUN Creatinine Ratio 27.2 (6-22); Blood Urea Nitrogen 25 mg/dL (9-20); Calcium 9.2 mg/dL (8.4-10.2); Carbon Dioxide 29 mmol/L (22-32); Chloride 104 mmol/L (98-107); Cholesterol 148 mg/dL (140-199); Estimated Glomerular Filt Rate > 60.0 mL/min (>60); Glucose 125 mg/dL (80-110); HDL Cholesterol 36 mg/dL (40-60); HEMOLYSIS < 15 (0-50); LDL Cholesterol Calculated 101 mg/dL (<100); Potassium 4.3 mmol/L (3.4-5.1); Sodium 137 mmol/L (137-145); Triglycerides 54 mg/dL (35-150)
[2019-10-01 06:50] LABS: Lithium 0.9 mmol/L (0.6-1.2)
[2019-10-01] MEDS: TAMSULOSIN 0.4 MG CAPSULE PO (08:11)
[2019-10-01] MEDS: ACETAMINOPHEN 325 MG TABLET 650 MG PO (08:11)
[2019-10-01] MEDS: DULOXETINE 30 MG CAPSULE 60 MG PO (08:11)
[2019-10-01] MEDS: BACLOFEN 10 MG TABLET PO ×2 (08:11→15:26)
[2019-10-01] MEDS: LIDOCAINE PATCH 1 EACH ADH..PATCH TOP (08:12)
[2019-10-01] MEDS: APIXABAN 5 MG TABLET PO (08:17)
[2019-10-01] MEDS: buPROPion XL 150 MG TAB 300 MG PO (08:17)
[2019-10-01] MEDS: CALCIUM CITRATE 200 MG TABLET 400 MG PO (08:24)
[2019-10-01] MEDS: SILVER SULFADIAZINE 1% CREAM 25 GM 1 APPLIC TOP (08:24)
[2019-10-01 08:25] LABS: TSH w/ Reflex to FT4 0.02 uIU/mL (0.47-4.68)
[2019-10-01] MEDS: LIOTHYRONINE 25 MCG TABLET 12.5 MCG PO (08:25)
[2019-10-01 08:30] VITALS: BP 105/56; PULSE 65; RESP 18; TEMP 36.4; O2SAT 97
[2019-10-01] MEDS: SUMAtriptan 25 MG TABLET 100 MG PO (08:33)
[2019-10-01 09:26] LABS: Free T4, Direct Thyroxine 0.88 ng/dL (0.78-2.19)
--- NOTE | 2019-10-01 10:25 | ST.IPSLE ---
Visit Care Team Role Provider Type Eleazar Armstrong MD Primary Care Provider Physician Specialty: Internal Medicine Address: [address] [place] [address], [address], [place], [address] Email: [email or web address] Eleazar Jean-Baptiste MD Emergency Provider Physician Specialty: Emergency Medicine Address: [address] [place] [address], [id number] Email: NUZHAT Gao Admit Provider Physician Attending Provider Specialty: Internal Medicine Address: [address] [place] [address], [id number] Email: [email or web address] Past Medical History (Last Reviewed 10/01/19 @ 01:00 by NUZHAT Gao) Anxiety (Chronic Medical) Asthma (Acute Medical) Chronic left shoulder pain (Chronic Medical 01/20/16) surgery December 2015 Chronic obstructive pulmonary disease (Chronic Medical 08/05/17) Chronic pain syndrome (Chronic Medical 11/08/16) Cognitive disorder (Chronic Medical 04/24/14) 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 Medical) Essential tremor (Acute Medical) H/O migraine (Inactive Medical) H/O renal calculi (Inactive Medical) ESWL for kidney stone 20 years earlier History of stroke (Inactive Medical) 2 prior to PFO closure Hypersomnia (Chronic Medical) Hypothyroidism (Chronic Medical) Insomnia (Chronic Medical) Iron deficiency (Chronic Medical) Major depressive disorder, recurrent episode, severe (Chronic Medical) Mixed hyperlipidemia (Chronic Medical) Narcotic dependence (Resolved Medical 09/01/16) Obesity with body mass index (BMI) of 30.0 to 39.9 (Chronic Medical 12/06/14) Paroxysmal atrial fibrillation (Chronic Medical) usually with pneumonia, s/p cardioversion 05/2017 Patent foramen ovale (Resolved Medical) closure 2012, Pneumonia (Resolved Medical) Post traumatic stress disorder (PTSD) (Chronic Medical) Psoriasis (Chronic Medical) S/P ECT (electroconvulsive therapy) (Acute Medical) 2014, 2017 Sarcoidosis (Chronic Medical) 1990s, no sequela Sleep apnea (Ruled-out Medical) Vitamin B12 deficiency (Chronic Medical 02/19/11) 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 He has history of 4- 5 CVAs/TIAs. Hearing Hearing Level Normal Vision Vision Status Impaired Comments Wears glasses Occupational Status Occupation Status Retired Previous Therapy Previous Speech-Language Therapy Yes History of Therapy ~15 years ago. Unable to remember reason. Oral Motor Examination Oral Motor Exam Completed No Subjective Subjective Patient alert, oriented and pleasant. Sitting up in chair in room eating breakfast. States his symptoms of difficulty focusing and confusion have resolved. - Informal Assessment Receptive Language Normal Yes: WNL for conversation Expressive Language Normal Yes: WNL for conversation, mild word finding difficulty Articulation Normal Yes: 100% intelligible Cognition Normal No Assessment Findings Score of 19/30 on [place] Cognitive Assessment indicating cognitive impairment. (Visuospatial/ executive - 4/5, naming -2/3, attention - 3/6, language - 2/ 3, abstraction 2/2, delayed recall - 0/5, orientation - 6/ 6) Patient reports trouble with word finding and says he is very forgetful. 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 He lives at home with his and reports she helps him remember things. Patient denies difficulty swallowing and ate his breakfast without difficulty. - Receptive Language Yes/No Questions Skill Level WNL Following Directions - Verbal Skill Level WNL Following Directions - Written Skill Level WNL Defining Words Skill Level WNL Auditory Comprehension Skill Level WNL Reading Comprehension Skill Level WNL - Expressive Language Automatic Speech Skill Level WNL Sentence Closure Skill Level WNL Object Naming Skill Level Mildly Impaired Oral Expression Skill Level WNL - Recommendations Recommendations Patient reports he has recently been evaluated by a cognitive therapist in [place] and he bombed cognitive testing done at that time. He was not able to recall recommendations from the evaluation. Upon discharge , I recommend he receive outpatient speech therapy to target cognitive function ( attention, short term recall, word finding) including compensatory strategy training for increased patient ease, safety related to ADLs and quality of life.
[2019-10-01] MEDS: ALBUTEROL/IPRATROPIUM MDI 2 PUFF INH (10:26)
[2019-10-01 10:33] VITALS: PULSE 64; RESP 16; O2SAT 97
--- NOTE | 2019-10-01 11:47 | CM.DANOTE ---
DCP/Assessment: Reviewed chart. Patient is a 64yr old male admitted to .. with stroke like symptoms. PCP is Dr. Armstrong. Primary payor is 1)Medicare 2)[facility]. Met with patient explained CM/SW role. Patient alert and oriented 64yr old. Patient reports that he resides with spouse/Milka in [place]. Patient uses cane at baseline for ambulation. Patient with h/o depression and anxiety. Patient reports that his current MH status is stable. Patient sees Dr. Murray as outpatient and has next appointment on October 10, 2019. Patient reports he has been having problems with his balance and memory issues which have led him to believe that he might be having TIA. Patient with previous h/o stroke. Patient evaluated by ST and outpatient f/u recommended. PT/OT evaluations pending but patient denies any physical deficits. It is anticipated that patient will d/c home later today if all tests negative. P: Home when stable. Provider asked to order outpatient f/u for ST. GLENDY Milton Discharge Planning/Care Management Advanced directive, confirm from FAMILY Start: 09/30/19 20:16 Freq: Q24H Status: Active Protocol: Document 09/30/19 22:20 HCW (Rec: 09/30/19 22:29 HCW [id number]) Advance Directive, confirm on record Time 22:25 Person contacted patient Copy received No CM Discharge Assessment Start: 10/01/19 10:32 Freq: Status: Active Protocol: Document 10/01/19 10:32 KJS (Rec: 10/01/19 10:35 KJS [id number]) Discharge Planning Assessment Assigned Trade Show Coordinator GLENDY Milton Contact Information Milka Hemphill (spouse) Advance Directives? Yes History Provided By Patient,Medical Record Prior Living Arrangements House Household Members spouse Type of transporation used prior to Drives own vehicle admit Independent with ADL's Yes: Uses cane at baseline Is patient alert and oriented? Yes Caregiver for Another No DME Already Rented / Owned FWW / Walker,Cane Barriers to Discharge No Discharge Plan Home Transportation Arrangement Family to provide transport at time of d/c. Whiteboard Updated in Patient Room with Yes name and ext. # of Trade Show Coordinator Review Status In Process Next Review Type Continued Stay Review
--- NOTE | 2019-10-01 11:49 | PT.IIE ---
Surgical History (Last Reviewed 10/01/19 @ 01:00 by NUZHAT Gao) History of gastric bypass (Inactive ~2003) History of Cris-en-Y gastric bypass (Inactive ~2003) History of total shoulder replacement (Inactive ~12/2015) S/P laparoscopic cholecystectomy (Inactive 10/18/18) S/P lumbar laminectomy (Inactive ~10/2017) Medical History (Last Reviewed 10/01/19 @ 01:00 by NUZHAT Gao) Anxiety (Chronic) Asthma (Acute) Chronic left shoulder pain (Chronic 01/20/16) Chronic obstructive pulmonary disease (Chronic 08/05/17) Chronic pain syndrome (Chronic 11/08/16) Cognitive disorder (Chronic 04/24/14) 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) Essential tremor (Acute) H/O migraine (Inactive) H/O renal calculi (Inactive) History of stroke (Inactive) Hypersomnia (Chronic) Hypothyroidism (Chronic) Insomnia (Chronic) Iron deficiency (Chronic) Major depressive disorder, recurrent episode, severe (Chronic) Mixed hyperlipidemia (Chronic) Narcotic dependence (Resolved 09/01/16) Obesity with body mass index (BMI) of 30.0 to 39.9 (Chronic 12/06/14) Paroxysmal atrial fibrillation (Chronic) Patent foramen ovale (Resolved) Pneumonia (Resolved) Post traumatic stress disorder (PTSD) (Chronic) Psoriasis (Chronic) S/P ECT (electroconvulsive therapy) (Acute) Sarcoidosis (Chronic) Sleep apnea (Ruled-out) Vitamin B12 deficiency (Chronic 02/19/11) Physical Therapy Inpatient Evaluation/Re-Eval M1 PT/OT-IP Prior Functional Status Start: 10/01/19 09:49 Freq: NEEDED Status: Active Protocol: Document 10/01/19 11:24 CGR (Rec: 10/01/19 11:49 CGR [id number]) Medical Review Prior Functional Status Medical History Reviewed Yes Communication Pt is an effective verbal communicator. Mobility and Gait Pt uses a 2ww for outdoor mobility and a cane for indoor mobility most of the time. Activities of Daily Living and IADL's Pt has assist from his with LB dressing but otherwise is IND. Social History Household Members spouse Living Arrangements House Number of Floors (Floors) One Floor Number of Stairs To Enter/Railing? No stairs Home Environment Standard Height Toilet,High Toilet,Walk in Shower Home Equipment Front Wheel Walker,Straight Cane,Shower Seat with Backrest ,Hand Held Shower,Grab Bars In Shower Employment Status Retired Additional Social History Comment Pt has an adjustable bed. M2 PT-IP Current Condition Start: 10/01/19 09:49 Freq: NEEDED Status: Active Protocol: Document 10/01/19 11:21 AW (Rec: 10/01/19 11:49 AW [id number]) Physical Therapy Current Condition Current Condition Evaluation Date 10/01/19 Treatment Diagnosis CVA vs complex migraine, balance impairment, difficulty in walking Onset Date 09/30/19 M3 PT-IP Subjective Start: 10/01/19 09:49 Freq: NEEDED Status: Active Protocol: Document 10/01/19 11:21 AW (Rec: 10/01/19 11:49 AW [id number]) Subjective Physical Therapy Visit Type Type Initial Evaluation Visit Start Time 10:33 Visit Stop Time 11:03 Total Visit Minutes 30 Notes Co-eval with OT Physical Therapy Visit Comments Patient Comments Pt is willing to participate with PT Therapy Pain Assessment Pain When Pain Assessed At Rest Pain Present Pain Present Pain Reported Location Back Intensity 7 Scale Used Numeric (0 - 10) M4 PT-IP Mobility and Gait Start: 10/01/19 09:49 Freq: NEEDED Status: Active Protocol: Document 10/01/19 11:21 AW (Rec: 10/01/19 11:49 AW [id number]) PT-Bed Mobility Assessment Supine to Sit Supine to Sit Independent Scooting Scooting to Edge of Bed Independent Scooting Up and Down in Bed Independent PT-Transfer Assessment Sit to and From Stand Sit to and from Stand Standby Assistance,Use of Upper Extremities Equipment Transfer Assistive Device Gait Belt,Straight Cane,Front Wheeled Walker Transfers Transfer Destination Chair,Toilet Transfer Technique pt ambulated with FWW to toilet and with SPC after that Transfer Ability Level of Assist Standby Assistance Comments Mobility Comments Pt was sitting up in bed upon therapy arrival. He completed bed mobility independently and then stood initially using FWW requiring SBA due to initial unsteadiness. He ambulated with FWW SBA to the toilet with notable shuffling gait. Upon exiting the bathroom, pt ambulated to the sink with FWW and then switched to a SPC for gait assessment in the halls. Upon return to the room, pt transferred to the chair SBA. PT left the pt with OT conducting further assessment. Gait Assessment Gait Gait Assistance Required: Standby Assistance Distance (Feet) 250 Assistive Devices Assistive Device Gait Belt,Straight Cane Gait Deviations General Gait Pattern Antalgic,Decreased Stride Length,Decreased Feet Clearance,Flexed Trunk,Lateral Trunk Lean,Wide Based Gait Factors Limiting Gait Function Factors Limiting Gait Function Decreased Sensation,Decreased Strength,Incoordination,Pain, Poor Balance,Poor Safety Awareness Comments Gait Comments Pt ambulated in the halls with SPC requiring SBA. He had two lateral LOB from which he was able to recover without therapist assist. Modified (4- item) DGI was undertaken with a score of 12 (points deducted for minimal change in gait speed when prompted and mild disturbance with both vertical and horizontal head turns). Stair Climbing Assessment Comments Stair Climbing Comments Not assessed. No stairs at home. PT-Balance Assessment Sitting Balance and Reactions Static Sitting Balance Ability Normal Dynamic Sitting Balance Ability Normal Standing Balance and Reactions Static Standing Balance Ability Good Dynamic Standing Balance Ability Fair Device Used SPC Functional Assessments Functional Tests Dynamic Gait Index mDGI: 12/21 M5 PT-IP Objective Assessments Start: 10/01/19 09:49 Freq: NEEDED Status: Active Protocol: Document 10/01/19 11:21 AW (Rec: 10/01/19 11:49 AW [id number]) Orientation Orientation/Cognition Level of Alertness Alert Orientation Name,Birthday,Day of Week, Place,Situation Language Function Ability No Deficits Noted Safety Awareness Decreased Safety Awareness Comments See OT notes for cognitive assessment. Gross Range of Motion Upper Extremity ROM Assessment Left Impaired Impairments flexion limited to ~90 degrees with history of L TSA Lower Extremity ROM Assessment Within Functional Limits Strength Lower Extremity Strength Assessment Within Functional Limits Comments Strength Comments BLE grossly 4+/5 Coordination Assessment Gross Coordination Gross Coordination WNL Assessment Finger to Nose Test Normal Performance Sensation Assessment Sensation Gross Sensation Right LE Impaired,Left LE Impaired Comments Sensation Comments Pt reports tingling of bilateral feet with long- standing history. No acute change. Muscle Tone Muscle Tone WNL Yes Other Assessments Other Other Assessments 2 beats clonus RLE. WNL. M6 PT-IP Treatment Start: 10/01/19 09:49 Freq: NEEDED Status: Active Protocol: Document 10/01/19 11:21 AW (Rec: 10/01/19 11:49 AW [id number]) Physical Therapy Treatment Education Education Provided Safety Other Treatments Other Treatment Performed Provided education on role of PT, plan of care, safe use of SPC, rationale for selection of appropriate assistive device. M7 PT-IP Assessment and Plan Start: 10/01/19 09:49 Freq: NEEDED Status: Active Protocol: Document 10/01/19 11:21 AW (Rec: 10/01/19 11:49 AW [id number]) PT Summary Assessment and Plan Potential Rehabilitation Potential Good Status of Condition at Evaluation Stable Summary Impairments Pain,ROM,Strength,Balance, Sensation,Transfers,Gait, Activity Tolerance Assessment Summary Edin is a 64 yo man seen for PT evaluation after presenting to the ED with worsening balance and headaches. MRI has yet to be undertaken for stroke protocol. At baseline, pt uses a SPC in the home and a FWW in the community with his main limitation being low back pain. On evaluation, pt scored 9/12 on modified DGI, indicating increased risk of falls. Pt appears to be at or near his baseline moblility status and has no need for continued acute PT services. Pt will be safe to discharge to home with assist and continued outpatient PT once medically cleared. Frequency of Treatment Frequency Of Treatment Discharge Recommendations To Nursing Amount of Assist Needed Standby Assistance Discharge Recommendations PT Discharge Recommendations Home with Assistance, Outpatient PT Transportation Needs at Discharge Private Vehicle
[2019-10-01 12:00] VITALS: BP 110/67; PULSE 61; RESP 18; TEMP 36.4; O2SAT 99
--- NOTE | 2019-10-01 12:17 | PC.NURSE ---
Addendum entered by Dolores Bernstein R.N. 10/01/19 15:40: Late entry: Back to room from MRI approx 1330. Re-connected to telemetry. Let Dr Magana know that MRI had been done earlier than expected. Patient sat up in chair for lunch, then back into bed w/ alarm on. Addendum entered by Dolores Bernstein R.N. 10/01/19 12:45: Off floor to MRI at this time via wheelchair. Original Note: Shift summary: Alert and oriented X3. NIH score 0. Did report feeling a little off balance walking, but stated as long as I have my walker I'm fine. 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 ECHO being done in room at this time. MRI planned for approx. 1530 today, patient aware and agreeable. Lungs CTA, HRR. Medicated with Tylenol for chronic back pain and Sumatriptan for C/O headache, which he reported were effective. Able to make needs known but does not always call. This copy writer asked DI staff to alert this copy writer when done so we can give patient his lunch and re-set bed alarm.
--- NOTE | 2019-10-01 15:27 | P.DS_ITS ---
History of Present Illness History of Present Illness Date Patient Seen: 10/01/19 Time Patient Seen: 15:27 Chief complaint: hx of stroke/tia x1 day Narrative: As per NUZHAT Gao: Mr. Mario Hemphill is a 64-year-old right-handed male with a past medical history significant for multiple strokes, migraines, cognitive disorder, paroxysmal atrial fibrillation, patent foramen ovale, COPD, asthma, chronic low back pain, essential tremors, anxiety depression and PTSD who presents to the emergency department concerned that he is having another stroke. Patient has a history of 4-5 neurological events including CVAs and TIAs. He reports he has been having progressive disequilibrium weakness with fatigue and difficulty thinking focusing and concentrating for 2 weeks with symptoms becoming significantly worse today. The patient denies complaints of headaches or visual changes no numbness or tingling and sustained no falls. The patient has been evaluated at the headache clinic for ongoing migraines and presently has a headache bilateral temples by me eyes without photophobia or phonophobia. He has been taking sumatriptan daily reported 2-3 tablets per day. He is unable to tolerate NSAIDs related to previous gastric bypass. Patient also continues to have back pain and was recently started on Robaxin which the patient has stopped taking finding no benefit. He continues to complain of back pain and is req uesting stronger muscle relaxant. Is of note that the patient is on a controlled substance agreement with prior opiate dependence. Will avoid benzodiazepines and opiates for pain management. The patient denies acute illness though he does note he yesterday he had an episode of diarrhea. He reports no for complaints of fevers but will sometimes have chills and night. He has had no known COVID-19 exposures. Denies sinus pain, nasal congestion or sore throat and denies neck pain. He denies complaints of chest pain will have occasional palpitations. He describes surgical dyspnea and has had a dry nonproductive cough for 2 weeks. He has had no nausea vomiting and aside from 1 diarrhea stool has been had normal formed BMs, he denies hematochezia or melena. He reports generalized weakness and fatigue and will steady himself on the ivey feeling that he might fall. He reports variable difficulty urinating indicating he will feel he needs to void has difficulty doing so and later will void with a strong stream. Arrival to the ER patient's temperature 99.5?, heart rate 93, blood pressure 139/91, respiratory rate of 20 saturating 96% on room air. A CT Frank obtained which finds mild atherosclerosis of the bilateral proximal internal carotid arteries without high-grade stenosis, possible moderate narrowing at the origin of the left vertebral artery. A chest x-ray is stained which finds no acute cardiopulmonary processes. On laboratory analysis he has white count of 9.1, hemoglobin of 17.0 and hematocrit of 49.1 platelets of 184. His electrolytes within normal range with a BUN of 25 and creatinine 1.23. His nonfasting glucose is 94. His magnesium 2.0. On LFTs he has a total bilirubin of 0.7, AST of 62, ALT of 46 and alkaline phosphatase of 93. His albumin is 4.4. He has a total CK of 786, a CK-MB of 4.29, index low at 0.5, a troponin of less than 0.012. He has a proBNP of 155, CRP is low at less than 0.5. Well in the ER the patient received sumatriptan 6 mg and methylprednisolone 125 mg get metoclopramide. He also received 2 L normal saline after which CPK was Re checked and found unchanged remaining at 786. Patient is admitted to the medicine service for rule out CVA generalized weakness and dehydration. Discharge Providers Provider Date of admission: 09/30/19 19:24 Discharge Date: 10/01/19 Primary care physician: Eleazar Armstrong MD Consults: 09/30/19 20:52 Consult to Discharge Planning Routine Comment: Consult to Occupational Therapy Evaluate & Treat Comment: Rule out CVA versus TIA, history multiple strokes Physician Instructions: Evaluate and treat Consult to Physical Therapy Evaluate & Treat Comment: Rule out CVA versus TIA, history multiple strokes Physician Instructions: Evaluate and Treat 09/30/19 20:53 Consult to Speech Therapy Evaluate & Treat Comment: Rule out CVA, history multiple CVAs Physician Instructions: Evaluate and treat 10/01/19 01:50 Consult to Respiratory Therapy Evaluate & Treat Comment: History COPD and asthma, exertional dyspnea Physician Instructions: Evaluate and treat Discharge provider: Tai Magana DO Summary Hospital Course Hospital Course: This is a 64-year-old male patient with a history of multiple prior CVAs who presented believing he was having another stroke given continued confusion and generalized weakness. He described an inability to communicate his words effectively and his did notice some difficulties speaking. He was evaluated with an MRI which did not show any acute or new infarctions. His symptoms had improved after admission. Differential includes TIA vs complex migraine, progressive cognitive impairment, or worsening anxiety/depression/PTSD. 1. Transient aphasia, present on admission, resolved -patient has a significant history of multiple CVAs and TIAs. He presented to the ER believing he is experiencing another episode describing disequilibrium weakness fatigue and cognitive impairment. NIH stroke scale was 0 throughout admission. -patient has been having ongoing headache with history of migraines and is seen at headache clinic but has been taking sumatriptan. -He did have an elevated CPK at 786 which could be associated with stroke. Risk factors include paroxysmal atrial fibrillation though he is presently in sinus and anticoagulated. -Has history of hyperlipidemia and has been taken off atorvastatin due to elevated LFTs by his clothing consultant. Ordered lipid panel which showed elevated lipids, will defer restarting of statin therapy to outpatient provider. -MRI stroke: No findings of acute or subacute infarction can be seen. 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 -continue Eliquis 5 mg twice daily. 2. Migraine headaches, chronic, active. -patient is followed at the headache clinic and describes prior frontal temporal headache that has been variable over several days but worse on admission. This improved with muscle relaxants. Headaches may be due to medication overuse as well which has been previously documented. 3. Generalized weakness, present on admission, active -patient is found to be mildly dehydrated clinically with dry mucous membranes and elevated BUN at 25 -feeling a general weakness may also be associated with his chronic depression and anxiety. -TSH is low at 0.02, but has been chronically with a normal free T4. 4. Paroxysmal atrial fibrillation, chronic, in sinus rhythm, stable -12 lead EKG finds sinus rhythm with ventricular rate of 94 with inferior Q- waves and poor R-wave progression with no indication of ischemia. -no medication changes were made. 5. Essential tremors, chronic, stable. -presently controlled with metoprolol tartrate 25 mg twice daily 6. Depression and anxiety, chronic, stable. -patient has had previous episodes of major depression and has undergone ECT therapy. He is presently followed by Dr. Murray, psychiatry. -the patient does not appear anxious nor depressed and is appropriately interactive with an appropriate mood and affect. This does not preclude anxiety attacks leading to presenting symptoms. -will continue regimen of bupropion 24HR 300 mg daily, clonazepam 2 mg tablets twice daily, eszopiclone 2 mg at bedtime and lithium carbonate 600 mg at bedtime. -continue current outpatient follow up. 7. Chronic obstructive pulmonary disease, chronic, stable. -patient presents with adequate oxygen saturation at 96% on room air, he does complain of exertional dyspnea. -patient received methylprednisolone 125 mg IV in the emergency department. -requested respiratory therapy consult evaluate and treat -will continue home regimen of albuterol nebulizer every 4 hours as needed. -patient may use own Breo inhaler 1 puff daily and order Combivent inhaler 2 puffs twice daily. 8. Hypothyroidism, chronic, stable -will continue the patient's home regimen of levothyroxine 100 mcg daily and liothronin 12.5 mg daily. 9. Dyslipidemia, chronic, stable -patient has previously been on atorvastatin though it was discontinued due to elevation in liver functions. -liver functions are normal at this time. Lipid panel was obtained showing LDL of 101. Further statin therapy can be discussed with outpatient provider given patient's history. Exam Vital Signs (past 8 hours): - 10/01/19 08:30 10/01/19 10:33 10/01/19 12:00 Temperature 97.6 F 97.6 F Pulse Rate 65 64 61 Respiratory Rate 18 16 18 Blood Pressure 105/56 L 110/67 Pulse Oximetry 97 97 99 Oxygen Delivery Method Room Air Oxygen Flow Rate 0 Narrative Exam Narrative: GENERAL APPEARANCE: well developed, obese male in no acute distress. HEENT: Symmetrical facies, PERRLA, conjunctiva clear, EOMs intact without nystagmus, no sinus tenderness to percussion, no rhinorrhea, mucous membranes are moist and pink without lesions or exudate. NECK/THYROID: neck supple the nontender, no JVD, no thyromegaly, trachea midline. LYMPH NODES: no cervical or supraclavicular lymphadenopathy. SKIN: [place], warm and dry, no visible lesions, rashes, ulcerations or petechiae. HEART: regular rate and rhythm, S1-S2, 1/6 systolic murmur, no rubs or gallops, 1+ dorsalis pedis pulses, trace edema LUNGS: Breath sounds are diminished but clear to auscultation bilaterally, no coarseness crackles or wheezing, no cough present CHEST: Symmetrical movement, no accessory muscle use, good tidal volume. ABDOMEN: Soft, round, no abdominal tenderness, no guarding or peritoneal signs, no organomegaly, no flank or suprapubic tenderness, active bowel tones. BACK: Normal curvature, nontender to palpation, no CVA tenderness on percussion EXTREMITIES: moves all extremities, bilateral fine hand tremors, strength is 5/5 and symmetrical, no deformities or joint effusions. NEUROLOGIC: AAO x 3,cranial nerves II-XII grossly intact, sensation intact to light touch, dexterity intact without ataxia. PSYCH: Good eye contact, does not appear anxious or depressed, linear thought process, cooperative, appropriate with stable behavior Objective Labs Result Diagrams: 10/01/19 05:30 10/01/19 05:30 Labs: Laboratory Results - last 24 hr 09/30/19 10/01/19 10/01/19 18:20 05:30 05:30 WBC 11.2 H RBC 4.61 Hgb 14.3 Hct 42.7 MCV 92.6 MCH 31.0 MCHC 33.5 RDW 13.3 Plt Count 170 Neut % (Auto) 91.6 H D Lymph % (Auto) 5.8 L [place] % (Auto) 2.5 L Eos % (Auto) 0.0 L Baso % (Auto) 0.1 Neut # (Auto) 26900 H Lymph # (Auto) 600 L [place] # (Auto) 300 Eos # (Auto) 0 Baso # (Auto) 0 Sodium Potassium Chloride Carbon Dioxide BUN Creatinine Estimated GFR BUN/Creatinine Ratio Glucose Hemoglobin A1c Calcium Total Creatine Kinase 786 H Triglycerides 54 Cholesterol 148 LDL Cholesterol, Calc 101 H HDL Cholesterol 36 L TSH Free T4 [place] 10/01/19 10/01/19 10/01/19 05:30 05:30 05:30 WBC RBC Hgb Hct MCV MCH MCHC RDW Plt Count Neut % (Auto) Lymph % (Auto) [place] % (Auto) Eos % (Auto) Baso % (Auto) Neut # (Auto) Lymph # (Auto) [place] # (Auto) Eos # (Auto) Baso # (Auto) Sodium 137 Potassium 4.3 Chloride 104 Carbon Dioxide 29 BUN 25 H Creatinine 0.92 Estimated GFR > 60.0 BUN/Creatinine Ratio 27.2 H Glucose 125 H Hemoglobin A1c 5.0 Calcium 9.2 Total Creatine Kinase Triglycerides Cholesterol LDL Cholesterol, Calc HDL Cholesterol TSH Free T4 [place] 0.9 10/01/19 05:30 WBC RBC Hgb Hct MCV MCH MCHC RDW Plt Count Neut % (Auto) Lymph % (Auto) [place] % (Auto) Eos % (Auto) Baso % (Auto) Neut # (Auto) Lymph # (Auto) [place] # (Auto) Eos # (Auto) Baso # (Auto) Sodium Potassium Chloride Carbon Dioxide BUN Creatinine Estimated GFR BUN/Creatinine Ratio Glucose Hemoglobin A1c Calcium Total Creatine Kinase Triglycerides Cholesterol LDL Cholesterol, Calc HDL Cholesterol TSH 0.02 L Free T4 0.88 [place] Discharge Plan Discharge Plan Patient Disposition: Home Discharge comment: You were admitted to the hospital with dizziness. You impro thaddeus the following morning. Outpatient speech therapy referral is requested. Discharge orders & Medications Prescriptions: New baclofen 10 mg Tablet 10 mg PO TID 4 Days Qty: 12 RF: 0 Continued eszopiclone [Lunesta] 2 mg tablet 2 mg PO BEDTIME PRN (Reason: Sleep) RF: 0 armodafinil [Nuvigil] 250 mg tablet 250 mg PO ONCE PRN (Reason: as directed) RF: 0 lithium carbonate 600 mg capsule 600 mg PO BEDTIME Qty: 90 RF: 3 Breo Ellipta 200 MCG/25 MCG blister with device 1 puff INH DAILY Qty: 0 RF: 0 Combivent Respimat 4 GM mist See Rx Instructions .ROUTE .COMPLEX MDD 6 Qty: 0 RF: 0 albuterol sulfate 1.25 MG/3 ML solution for nebulization 1.25 mg INH Q4HP PRN (Reason: Shortness Of Breath) Qty: 0 RF: 0 montelukast [Singulair] 10 mg tablet 10 mg PO BEDTIME Qty: 14 RF: 0 lidocaine [Lidoderm] 5 % adhesive patch,medicated 1 patch TOP .COMPLEX Qty: 15 RF: 3 ketoconazole 2 % shampoo See Rx Instructions .ROUTE .COMPLEX Qty: 360 RF: 0 levothyroxine 100 mcg tablet 100 mcg PO QAM Qty: 90 RF: 3 duloxetine [Cymbalta] 60 mg capsule,delayed release(DR/EC) 60 mg PO BID Qty: 60 RF: 3 clonazepam 2 mg tablet See Rx Instructions .ROUTE .COMPLEX Qty: 90 RF: 0 metoprolol tartrate 25 mg tablet 25 mg PO BID Qty: 180 RF: 1 bupropion HCl 300 mg tablet extended release 24 hr See Rx Instructions .ROUTE .COMPLEX Qty: 90 RF: 1 prochlorperazine maleate 10 mg tablet 10 mg PO Q8H PRN (Reason: nausea and vomiting) Qty: 60 RF: 4 calcium citrate 250 mg calcium tablet 500 mg PO BID RF: 0 (DME) Disabled Parking Qty: 1 RF: 0 liothyronine 25 mcg tablet 12.5 mcg PO DAILY RF: 0 tamsulosin 0.4 mg capsule 0.4 mg PO DAILY RF: 0 desonide 0.05 % cream 1 applic Topical PRN PRN (Reason: Inflammation) RF: 0 Vitamin B-12 1 tab PO DAILY RF: 0 clobetasol 0.05 % ointment 1 applic Topical SUSA PRN (Reason: Rash) RF: 0 multivitamin Tablet 1 tab PO TID RF: 0 sumatriptan succinate 100 mg tablet 100 mg PO ONCE PRN (Reason: Headache) RF: 0 Eliquis 5 mg tablet 5 mg PO BID RF: 0 Follow up/Referrals: Eleazar Armstrong MD [Primary Care Provider] - RuthannOccupation Therapist [Occupational Therapist] - Diet/Activity/Treatments Diet: Diet as Tolerated Activity: As tolerated Visit Report/Discharge Packet Visit Report Forms: Patient Portal/API, Stroke Signs & Symptoms Discharge Data Primary Care Provider: Eleazar Armstrong Attending Provider: Tai Samayoa Admnadia Date/Time: 09/30/19 19:24
--- NOTE | 2019-10-01 16:32 | PC.NURSE ---
Discharge Note Patient A&O, VSS, RA, no complaints of pain/discomfort. This RN reviewed discharge packet with patient and spouse, no questions or concerns. Belongings and discharge packet given to patient spouse. Patient taken down via wheelchair to person vehicle by this RN.
== END 2019-10-01 16:20 | disposition home or self-care (01) ==
LOC: ED 19:14 → AC 19:25
PROVIDERS: Internal Medicine; Admitting Provider Nurse Practitioner Adult Health; Emergency Provider Emergency Medicine; PCP Internal Medicine; Visit Provider Nurse Practitioner Adult Health
DX: R29.818 Other symptoms and signs involving the nervous system (principal); R53.1 Weakness; R47.01 Aphasia; G43.909 Migraine, unspecified, not intractable, without status migrainosus; E66.9 Obesity, unspecified; Z68.34 Body mass index [BMI] 34.0-34.9, adult; I48.0 Paroxysmal atrial fibrillation; R25.1 Tremor, unspecified; F41.9 Anxiety disorder, unspecified; F32.9 Major depressive disorder, single episode, unspecified; J44.9 Chronic obstructive pulmonary disease, unspecified; E03.9 Hypothyroidism, unspecified; E78.5 Hyperlipidemia, unspecified; Z79.01 Long term (current) use of anticoagulants; Z86.73 Personal history of transient ischemic attack (TIA), and cerebral infarction without residual deficits
CPT/HCPCS: 36415; 36591; 70450; 70496; 70498; 70548; 70551; 70553; 71045; 80048; 80053; 80061; 80178; 81003; 82550; 82553; 83036; 83735; 83880; 84439; 84443; 84484; 85025; 85651; 86140; 92523; 93005; 93306; 94640; 94762; 96361; 96372; 96374; 96375; 97129; 97161; 97165; 99284; G0378; J1642; J2765; J2930; J3030; Q9967

== ENCOUNTER 2019-10-13 15:14 | Emergency (ER) | payer MEDICARE, SELFPAY ==
[2019-09-30 20:07] VITALS: BMI 34.4
[2019-10-13 15:36] VITALS: BP 157/94; PULSE 100; RESP 15; TEMP 37.6; O2SAT 98
--- NOTE | 2019-10-13 16:15 | ED_ITS ---
HPI - Skin/Abscess/Foreign Bdy <Lyubov Love, PROCUREMENT COORDINATOR-BC - Last Filed: 10/13/19 20:12> General Chief complaint: Skin/Abscess/Foreign Body Stated complaint: states shingles I think Time Seen by Provider: 10/13/19 15:38 Source: patient Mode of arrival: Ambulatory Limitations: no limitations History of Present Illness HPI narrative: The patient is a 64-year-old male former smoker with a history of multiple medical condition including gastric bypass home hypothyroid and rhabdomyolysis who presents with a chief complaint of a rash. He states he noticed this at 4:00 a.m., the left side of his body. He is very itchy he scratches it. There was no prodrome. Patient overall feels well. He is on Bactrim for a wound on his left leg. He states the rash extends from his left groin at his left side, across his abdomen as well. No blistering, just red and itchy. No new lotions creams or exposures. No new dryer sheets etcetera. The patient states that he has a healing wound on his left thigh on the back for which she is seeing his primary care provider in taking Bactrim. He states he is almost finished with his course, and that he only has 1 pill left. Related Data Home Medications Medication Instructions Recorded Confirmed Breo Ellipta 1 puff INH DAILY #0 12/03/16 10/10/19 Combivent Respimat See Rx Instructions .ROUTE 04/15/17 10/10/19 .COMPLEX #0 MDD 6 albuterol sulfate 1.25 mg INH Q4HP PRN #0 05/24/17 10/10/19 Vitamin B-12 1 tab PO DAILY 02/21/18 10/10/19 desonide 1 applic TOPICAL PRN PRN 02/21/18 10/10/19 calcium citrate 500 mg PO BID tab 03/28/18 10/10/19 apixaban 5 mg tablet 5 mg PO BID 05/30/18 10/10/19 armodafinil 250 mg tablet 250 mg PO ONCE PRN 01/19/19 10/10/19 liothyronine 12.5 mcg PO DAILY 01/22/19 10/10/19 tamsulosin 0.4 mg PO DAILY 01/22/19 10/10/19 clobetasol 0.05 % topical ointment 1 applic TOPICAL SUSA PRN 04/18/19 10/10/19 eszopiclone 2 mg tablet 2 mg PO BEDTIME PRN tab 04/18/19 10/10/19 multivitamin 1 tab PO TID tab 04/18/19 10/10/19 sumatriptan succinate 100 mg PO ONCE PRN 09/30/19 10/10/19 Previous Rx's Medication Instructions Recorded montelukast 10 mg tablet 10 mg PO BEDTIME #14 tab 05/18/18 prochlorperazine maleate 10 mg 10 mg PO Q8H PRN #60 tab 02/06/19 tablet lidocaine 5 % topical patch 1 patch TOP .COMPLEX #15 each 03/06/19 ketoconazole 2 % shampoo See Rx Instructions .ROUTE 03/16/19 .COMPLEX #360 milliliter lithium carbonate 600 mg capsule 600 mg PO BEDTIME #90 cap 05/09/19 levothyroxine 100 mcg tablet 100 mcg PO QAM #90 tab 05/18/[address] #1 each 08/02/19 duloxetine 60 mg capsule,delayed 60 mg PO BID #60 cap 08/06/19 release metoprolol tartrate 25 mg tablet 25 mg PO BID #180 tab 09/12/19 bupropion HCl 300 mg 24 hr tablet, See Rx Instructions .ROUTE 09/28/19 extended release .COMPLEX #90 tab sulfamethoxazole 800 1 tab PO BID #20 tab 10/04/19 mg-trimethoprim 160 mg tablet clonazepam 1 mg tablet 1.5 mg PO TID #120 tab MDD 4.5 mg 10/10/19 triamcinolone acetonide 1 applictn TOP TID 7 Days #80 gram 10/13/19 Allergies Allergy/AdvReac Type Severity Reaction Status Date / Time doxycycline [DOXYCYCLINE] Allergy Mild ITCHING Verified 10/10/19 13:37 ketorolac [KETOROLAC] Allergy Unknown Verified 10/10/19 13:37 NSAIDS (Non-Steroidal AdvReac Unknown TO AVOID Verified 10/10/19 13:37 Anti-Inflamma R/T [NSAIDS (NON-STEROIDAL GASTRIC ANTI-INFLAMMA] BYPASS controlled substance AdvReac Uncoded 10/10/19 13:37 agreement Review of Systems <MAUREEN Chong-TOMAS - Last Filed: 07/04/20 20:12> Review of Systems Narrative: GENERAL: This is a well-nourished, well-developed patient, in mild distress. HEAD: Atraumatic. Normocephalic. No temporal or scalp tenderness. EYES: Pupils equal round and reactive. Extraocular motions intact. No scleral icterus. No injection or drainage. ENT: Nose without bleeding, purulent drainage or septal hematoma. Throat without erythema, tonsillar hypertrophy or exudate. Uvula midline. Airway patent. NECK: Trachea midline. No JVD or lymphadenopathy. Supple, nontender, no meningeal signs. CARDIOVASCULAR: Regular rate and rhythm without murmurs, gallops, or rubs. RESPIRATORY: Clear to auscultation. Breath sounds equal bilaterally. No wheezes, rales, or rhonchi. GASTROINTESTINAL: Abdomen soft, non-tender, nondistended. No hepato- splenomegaly, or palpable masses. No guarding. EXTREMITIES: No clubbing, cyanosis, or edema. No joint tenderness, effusion, or edema noted. BACK: Nontender without deformity or crepitance. No flank tenderness. NEURO: AOx3. SKIN: See HPI Patient History <CORIE Chong - Last Filed: 10/13/19 20:12> Medical History Anxiety (Chronic) Asthma (Acute) Chronic left shoulder pain (Chronic 01/20/16) Chronic obstructive pulmonary disease (Chronic 08/05/17) Chronic pain syndrome (Chronic 11/08/16) Cognitive disorder (Chronic 04/24/14) 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) Essential tremor (Acute) H/O migraine (Inactive) H/O renal calculi (Inactive) History of stroke (Inactive) Hypersomnia (Chronic) Hypothyroidism (Chronic) Insomnia (Chronic) Iron deficiency (Chronic) Major depressive disorder, recurrent episode, severe (Chronic) Mixed hyperlipidemia (Chronic) Narcotic dependence (Resolved 09/01/16) Obesity with body mass index (BMI) of 30.0 to 39.9 (Chronic 12/06/14) Paroxysmal atrial fibrillation (Chronic) Patent foramen ovale (Resolved) Pneumonia (Resolved) Post traumatic stress disorder (PTSD) (Chronic) Psoriasis (Chronic) S/P ECT (electroconvulsive therapy) (Acute) Sarcoidosis (Chronic) Sleep apnea (Ruled-out) Vitamin B12 deficiency (Chronic 02/19/11) Surgical History History of gastric bypass (Inactive ~2003) History of Cris-en-Y gastric bypass (Inactive ~2003) History of total shoulder replacement (Inactive ~12/2015) S/P laparoscopic cholecystectomy (Inactive 10/18/18) S/P lumbar laminectomy (Inactive ~10/2017) Family History Father No problems noted. Mother No problems noted. 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 Normocephalic. No temporal or scalp tenderness. EYES: Pupils equal round and reactive. Extraocular motions intact. No scleral icterus. No injection or drainage. ENT: Nose without bleeding, purulent drainage or septal hematoma. Throat without erythema, tonsillar hypertrophy or exudate. Uvula midline. Airway patent. No lesions of mouth. NECK: Trachea midline. No JVD or lymphadenopathy. Supple, nontender, no meningeal signs. CARDIOVASCULAR: Regular rate and rhythm RESPIRATORY: Clear to auscultation. Breath sounds equal bilaterally. No wheezes, rales, or rhonchi. No cough. No increased respiratory effort. No accessory muscle use. GASTROINTESTINAL: Abdomen soft, non-tender, nondistended. No hepato- splenomegaly, or palpable masses. No guarding. EXTREMITIES: No clubbing, cyanosis, or edema. No joint tenderness, effusion, or edema noted. BACK: Nontender without deformity or crepitance. No flank tenderness. NEURO: AOx3. SKIN: Patchy, slightly erythematous rash extending from left groin up to axilla, at times in a straight line up and down chest wall. Also extends across abdomen and into inguinal folds. No central clearing. N no hives no blistering, no vesicles. 3 x 4 cm wound noted on left posterior thigh. With no surrounding erythema or drainage. Initial Vital Signs Initial Vital Signs: Vital Signs Temperature 99.6 F 10/13/19 15:36 Pulse Rate 100 H 10/13/19 15:36 Respiratory Rate 15 10/13/19 15:36 Blood Pressure 157/94 H 10/13/19 15:36 Pulse Oximetry 98 10/13/19 15:36 <Eleazar Jean-Baptiste MD - Last Filed: 10/14/19 07:28> Initial Vital Signs Initial Vital Signs: Vital Signs Temperature 99.6 F 10/13/19 15:36 Pulse Rate 100 H 10/13/19 15:36 Respiratory Rate 15 10/13/19 15:36 Blood Pressure 157/94 H 10/13/19 15:36 Pulse Oximetry 98 10/13/19 15:36 Scores <CORIE Chong - Last Filed: 10/13/19 20:12> GCS Lindsey coma scale eye opening: Spontaneous Lindsey coma scale verbal response: Orientated [place] coma scale motor response: Obey commands [place] coma scale total score: 15 Course <CORIE Chong - Last Filed: 10/13/19 20:12> Orders Ordered: Discontinued Medications Hydrocodone Bitart/Acetaminophen ([place] 5/325) 1 tab PO NOW ONE Stop: 10/13/19 17:04 Last Admin: 10/13/19 17:28 Dose: 1 tab Documented by: JACOB Vital Signs Vital signs: Vital Signs - 8 hr 10/13/19 15:36 10/13/19 17:00 Temperature 99.6 F Pulse Rate 100 H 91 H Respiratory Rate 15 Blood Pressure 157/94 H 118/64 Pulse Oximetry 98 92 <Eleazar Jean-Baptiste MD - Last Filed: 10/14/19 07:28> Orders Ordered: Discontinued Medications Hydrocodone Bitart/Acetaminophen ([place] 5/325) 1 tab PO NOW ONE Stop: 10/13/19 17:04 Last Admin: 10/13/19 17:28 Dose: 1 tab Documented by: JACOB Vital Signs Vital signs: Vital Signs - 8 hr 10/13/19 15:36 10/13/19 17:00 Temperature 99.6 F Pulse Rate 100 H 91 H Respiratory Rate 15 Blood Pressure 157/94 H 118/64 Pulse Oximetry 98 92 MDM - Skin/Abscess/Foreign Bdy <CORIE Chong - Last Filed: 10/13/19 20:12> MDM Narrative Medical decision making narrative: The patient is a 64-year-old male with complicated medical history presents with a chief complaint of a rash. He was on Bactrim so Demetris Hay's intends were considered, however the patient has no blistering, no mucosal involvement in his rash is itchy. He states that it is not painful, no prodrome. It is not vesicular helping rule out shingles as well as the fact that goes across is midline. His exam appears to correlate with a contact dermatitis, especially given the linear aspect of some of it. The patient denies any new exposures, though contact dermatitis appears to be the most likely differential given his exam and presentation. Patient declines p.o. steroids as he ?does not like how he feels.He overall feels well and nontoxic and appears well and nontoxic. Patient interestingly request IM Dilaudid for his rash, however I did give him an 1 [place] in the emergency department. Chart review illustrate that he is on a pain contract. I did discuss at length the importance of following up with primary care provider in the next few days and coming back to emergency department for any acute concerns. Patient has no questions or concerns upon discharge and states understanding of return precautions as well as follow-up care. Discharge Plan Departure Patient Disposition: Home Clinical Impression: Rash Discharge Date/Time: 10/13/19 17:34 Instructions: DI for Contact Dermatitis, DI for Rash Activity Restrictions/Additional Instructions: Thank you for trusting with your care today I sent a prescription of a steroid cream to [facility] Please monitor for new exposures to ointments, lotions, substances. As discussed, please monitor for any changes such as blistering etcetera Please come back to the emergency department for any acute concerns including chest pain, shortness of breath, abdominal pain with fever etcetera Please follow-up with primary care provider for recheck in a few days Prescriptions: New triamcinolone acetonide 0.025 % cream 1 applictn TOP TID 7 Days Qty: 80 RF: 0 No Action eszopiclone [Lunesta] 2 mg tablet 2 mg PO BEDTIME PRN (Reason: Sleep) RF: 0 clonazepam 1 mg tablet 1.5 mg PO TID MDD 4.5 mg Qty: 120 RF: 0 armodafinil [Nuvigil] 250 mg tablet 250 mg PO ONCE PRN (Reason: as directed) RF: 0 lithium carbonate 600 mg capsule 600 mg PO BEDTIME Qty: 90 RF: 3 Breo Ellipta 200 MCG/25 MCG blister with device 1 puff INH DAILY Qty: 0 RF: 0 Combivent Respimat 4 GM mist See Rx Instructions .ROUTE .COMPLEX MDD 6 Qty: 0 RF: 0 albuterol sulfate 1.25 MG/3 ML solution for nebulization 1.25 mg INH Q4HP PRN (Reason: Shortness Of Breath) Qty: 0 RF: 0 montelukast [Singulair] 10 mg tablet 10 mg PO BEDTIME Qty: 14 RF: 0 lidocaine [Lidoderm] 5 % adhesive patch,medicated 1 patch TOP .COMPLEX Qty: 15 RF: 3 ketoconazole 2 % shampoo See Rx Instructions .ROUTE .COMPLEX Qty: 360 RF: 0 levothyroxine 100 mcg tablet 100 mcg PO QAM Qty: 90 RF: 3 duloxetine [Cymbalta] 60 mg capsule,delayed release(DR/EC) 60 mg PO BID Qty: 60 RF: 3 metoprolol tartrate 25 mg tablet 25 mg PO BID Qty: 180 RF: 1 bupropion HCl 300 mg tablet extended release 24 hr See Rx Instructions .ROUTE .COMPLEX Qty: 90 RF: 1 prochlorperazine maleate 10 mg tablet 10 mg PO Q8H PRN (Reason: nausea and vomiting) Qty: 60 RF: 4 calcium citrate 250 mg calcium tablet 500 mg PO BID RF: 0 (DME) Disabled Parking Qty: 1 RF: 0 sulfamethoxazole-trimethoprim 800-160 mg tablet 1 tab PO BID Qty: 20 RF: 0 liothyronine 25 mcg tablet 12.5 mcg PO DAILY RF: 0 tamsulosin 0.4 mg capsule 0.4 mg PO DAILY RF: 0 desonide 0.05 % cream 1 applic Topical PRN PRN (Reason: Inflammation) RF: 0 Vitamin B-12 1 tab PO DAILY RF: 0 clobetasol 0.05 % ointment 1 applic Topical SUSA PRN (Reason: Rash) RF: 0 multivitamin Tablet 1 tab PO TID RF: 0 sumatriptan succinate 100 mg tablet 100 mg PO ONCE PRN (Reason: Headache) RF: 0 Eliquis 5 mg tablet 5 mg PO BID RF: 0 Referrals: Eleazar Armstrong MD [Primary Care Provider] -
--- NOTE | 2019-10-13 16:54 | PC.NURSE ---
Pt has rash from axilla to groin, mainly on the left side some to his groin on the right.
[2019-10-13 17:00] VITALS: BP 118/64; PULSE 91; O2SAT 92
[2019-10-13] MEDS: HYDROCODONE/ACET 5/325 TABLET 1 TAB PO (17:28)
== END 2019-10-13 17:34 | disposition home or self-care (01) ==
PROVIDERS: Emergency Provider Nurse Practitioner Family; PCP Internal Medicine
DX: R21 Rash and other nonspecific skin eruption (principal)
CPT/HCPCS: 99282; 99283

== ENCOUNTER 2019-10-25 13:45 | Outpatient (RCR) | payer MEDICARE, SELFPAY ==
[2018-10-11 14:03] VITALS: BMI 31.0
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
--- NOTE | 2019-06-26 13:23 | PT-OP ANOTE ---
cancelled PT appointment due to immune compromise, not to go out at this time due to coronovirus
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
--- NOTE | 2019-09-26 14:37 | PT.OPPOC ---
Physical, Occupational & Speech Therapy At [facility] Current Diagnoses Other intervertebral disc degeneration, lumbar region (09/26/19) Abnormal posture (09/26/19) Weakness (09/26/19) Strain of muscle, fascia and tendon of lower back, initial encounter (09/26/19) Visit Care Team Role Provider Type Eleazar Armstrong MD Attending Provider Physician Primary Care Provider Specialty: Internal Medicine Address: [address] [place] [address], [address], [place], [address] Email: [email or web address] Plan Of Care PT-OP-T Assessment and Plan Start: 04/26/19 13:34 Freq: Status: Active Protocol: Document 09/26/19 13:34 LAURY (Rec: 09/26/19 14:34 SAK [id number]) Physical Therapy Assessment Goals Four Impairment decreased flexibility and strength Short Term Goal (STG) Patient will be instructed in HEP and aquatic exercise program to address impairments STG Duration 10/25/19 Commercial Baker Helper Goal (LTG) Patient will be independent and compliant with HEP and aquatic exercie program. LTG Duration 11/25/19 Three Impairment postural impairment Short Term Goal (STG) Patient will demonstrate understanding of neutral postural alignment and be able to self correct 50% of time with cues STG Duration 10/25/19 Correction Goal (LTG) Patient will demonstrate improved postural alignment with functional activities including walking and lifting for spinal protection pain management. LTG Duration 09/25/19 Two Impairment Poor ability to activate core musculature for spinal stabilzation Short Term Goal (STG) Patient able to demonstrate activation of core musculature in a supine position consistently with therapeutic exercises STG Duration 10/25/19 Correction Goal (LTG) Patient able to demonstrate activation of core musculature during transitional movements and functional activities for the purposes of spinal protection and improved activity tolerance. LTG Duration 11/25/19 One Impairment Oswestry disability Index score 68% Short Term Goal (STG) Decrease Oswestry disability Index score to no greater than 50% STG Duration 10/25/19 Correction Goal (LTG) Decrease Oswestry disability Index score to no greater than 30% as evidence of improved functional activity tolerance. LTG Duration 11/25/19 Assessment Summary Assessment No progress due to not seen since 05/23/19 due to Covid19. Patient lost his HEP handout, has not been exercising, reports walking hurts. Receptive to doing aquatic therapy again when pool open. Physical Therapy Plan Frequency and Duration Frequency of Treatment 2x/Week Duration of Treatment 12 wks Plan of Care Start Date 09/26/19 Plan of Care End Date 11/25/19 Therapeutic Interventions Therapeutic Interventions Aquatic Therapy,Home Exercise Program,Neuromuscular Re- education,Patient/Caregiver Education,Self-Care/Home Management,Soft Tissue Mobilization,Taping, Therapeutic Activities, Therapeutic Exercises Modalities Cold Pack/Ice Massage,Electric Stimulation,Hot Packs, Ultrasound Next Visit Focus/Plan Next Note Type Treatment Note Next Visit Plan Assure understanding of HEP and progress as tolerated to decrease pain and improve mobility. Start with recumbant exercise bike. Plan of Care Dates Plan of Care Start Date 09/26/19 Plan of Care End Date 11/25/19 Electronically Signed by: Racquel Gunderson, PT 09/26/19 [id number] Please Sign and Return: I have reviewed this Plan of Care and certify that the skilled therapy services above are required to meet the patient?s needs. Physician Signature Date Printed Name and Credentials Clinical Instructor Signature Printed Name and Credentials
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
--- NOTE | 2019-10-25 14:39 | PT.OTN ---
Current Diagnoses Other intervertebral disc degeneration, lumbar region (10/25/19) Abnormal posture (10/25/19) Weakness (10/25/19) Strain of muscle, fascia and tendon of lower back, initial encounter (10/25/19) Physical Therapy Treatment Note PT-OP-A Visit Information Start: 04/26/19 13:34 Freq: Status: Active Protocol: Document 10/25/19 13:38 SAK (Rec: 10/25/19 14:38 SAK [id number]) Out-Patient Physical Therapy Visit Information Visit Information Visit Type Treatment Note Visit Start Time 13:45 Visit Stop Time 14:40 Total Visit Minutes 55 Visit Number 5 Evaluation Information Evaluation Date 04/16/19 Precautions Precautions PMH: Anxiety (Chronic) Chronic left shoulder pain ( Chronic 01/20/16) Chronic obstructive pulmonary disease (Chronic 08/05/17) Chronic pain syndrome (Chronic 11/08/16) Cognitive disorder (Chronic ) Surgical history: History of gastric bypass ( Inactive ~2003) History of Cris-en-Y gastric bypass (Inactive ~2003) History of total shoulder replacement (Inactive ~12/2015 ) S/P laparoscopic cholecystectomy (Inactive 01/27) S/P lumbar laminectomy ( Inactive ~10/2017) 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) H/O migraine (Inactive) H/O renal calculi (Inactive) History of stroke (Inactive) Hypersomnia (Chronic) Hypothyroidism (Chronic) Insomnia (Chronic) Iron deficiency (Chronic) Major depressive disorder, recurrent episode, severe ( Chronic) Mixed hyperlipidemia (Chronic) Narcotic dependence (Resolved 09/01/16) Obesity with body mass index ( BMI) of 30.0 to 39.9 (Chronic 12/06/14) Other iron deficiency anemia ( Chronic 02/03/15) Paroxysmal atrial fibrillation (Chronic) Patent foramen ovale (Resolved ) Pneumonia (Resolved) Post traumatic stress disorder (PTSD) (Chronic) Psoriasis (Chronic) S/P ECT (electroconvulsive therapy) (Acute) Sarcoidosis (Chronic) Sleep apnea (Ruled-out) Vitamin B12 deficiency ( Chronic 02/19/11) PT-OP-B Current Condition Start: 04/26/19 13:34 Freq: Status: Active Protocol: Document 04/26/19 13:41 SAK (Rec: 04/26/19 14:35 SAK [id number]) Current Condition History of Current Condition Onset Date 1 month Current Complaints worsening LBP History of Current Condition Reports worsening LBP for no known reason. Denies N/T. Has long history of LBP starting with water skiing accident when he was 19 y/o. Has put on weight. Not currently doing any exercising , largely due to depression; states a couple deaths. Using ice and heat; prefers ice. Prior Treatments and Tests laminectomy 2019 L4-S1 Future Testing and Treatments Planned lumbar x-ray yesterday Treatment Goals Patient/Caregiver Goals decrease my pain learn how to strengthen my core, become more active, get healthier. Prior Functional Status Baseline Function- ADL's Modified Independent Baseline Function- Mobility Modified Independent Baseline Function- Gait independent, sometimes with cane or walker Baseline Function- Work/School retired Baseline Function- Recreation/Hobbies limited Current Functional Impairments (Reported) Functional Limitations- ADL's minimal, painful Functional Limitations- Mobility/Gait painful, more use of cane and walker Functional Limitations- Work/School RETIRED Functional Limitations- Recreation/ unable at this time due to Hobbies pain, most of day in bed. Personal Factors Other Personal Factors That May Effect anxiety, history of depression Therapy/Recovery (reports not currently depressed) PT-OP-C Subjective Start: 04/26/19 13:34 Freq: Status: Active Protocol: Document 10/25/19 13:38 [facility] (Rec: 10/25/19 14:38 [facility] [id number]) OP-PT Subjective Patient Comments Patient Comments No new c/o. Had to cancel last appointment due to migraine. PT-OP-H Neuro Start: 04/26/19 13:34 Freq: Status: Active Protocol: Document 04/26/19 13:41 [facility] (Rec: 04/26/19 14:35 [facility] [id number]) Sensation Evaluation Gross Sensation Gross Sensation WNL Deep Tendon Reflex & Clonus Assessment Deep Tendon Reflex Bilateral Patellar Deep Tendon Reflex 2+ Normal PT-OP-J Posture/Palpation/Skin Start: 04/26/19 13:34 Freq: Status: Active Protocol: Document 04/26/19 13:41 SAK (Rec: 04/26/19 14:35 [facility] [id number]) Posture Evaluation Position Standing Head/C-Spine Posture Forward Head T-Spine Posture Increased Kyphosis L-Spine Posture Flattened Shoulder Posture (L) Rounded,(R) Rounded Scapula Posture (L) Protracted,(R) Protracted Pelvis Posture Anteriorly Tilted Hip Posture (R) Externally Rotated Ankle/Foot Posture (R) Forefoot Abducted Palpation Assessment Location lumbar spine Palpation Findings Soft Tissue Tightness,Muscle Guarding PT-OP-K Range of Motion Start: 04/26/19 13:34 Freq: Status: Active Protocol: Document 04/26/19 13:41 SAK (Rec: 04/26/19 14:35 SAK [id number]) Lumbar Spine Range of Motion Lumbar Spine Active Testing Position Standing ROM Limitations Soft Tissue Tightness,Pain Comments mod decrease all motions Hip Goniometric Range of Motion Hip monica Straight Leg Raise 55 Extension 0 Abduction 25 Internal Rotation 15 External Rotation 45 Hip ROM Limitations Hip ROM Limitations Soft Tissue Tightness Knee Goniometric Range of Motion Knee monica Knee ROM WFL Yes Ankle and Foot Goniometric Range of Motion Ankle and Foot monica Ankle/Foot ROM WFL Yes PT-OP-L Special Tests Start: 04/26/19 13:34 Freq: Status: Active Protocol: Document 04/26/19 13:41 [facility] (Rec: 04/26/19 15:03 [facility] [id number]) Special Tests Lumbar Spine Special Tests Prone Press Up Test Results negative Passive Neck Flexion Test Results negative Straight Leg Raise Test Results negative Compression Test Results negative PT-OP-M Strength Start: 04/26/19 13:34 Freq: Status: Active Protocol: Document 09/26/19 13:34 [facility] (Rec: 09/26/19 14:34 [facility] [id number]) Hip Strength Hip Manual Muscle Testing Left Flexion (L2) 4- Good- Extension (S1) 4- Good- Abduction 4- Good- External Rotation 4- Good- Internal Rotation 4 Good Right Flexion (L2) 4 Good Extension (S1) 4- Good- Abduction 4 Good External Rotation 4- Good- Internal Rotation 4 Good Knee Strength Knee Manual Muscle Testing monica Flexion (S2) 5 Normal Extension (L3) 5 Normal Ankle/Foot Strength Ankle and Foot Manual Muscle Testing monica Dorsiflexion (L4) 5 Normal PT-OP-Q Treatments Start: 04/26/19 13:34 Freq: Status: Active Protocol: Document 10/25/19 13:38 SAK (Rec: 10/25/19 14:38 SAK [id number]) Cardio Equipment Recumbent Stepper (Sci-Fit) Duration (Minutes) 10 Resistance 1 Seat Position 13 Other 30 rpm, 0.72 miles Therapeutic Exercises Supine Exercises TrA with hip ab/ER Equipment Used L1 TB Reps/Minutes 10x piriformis stretch Reps/Minutes 2x Comments manual gluteal set Reps/Minutes 10x LTR Reps/Minutes 10x SKTC Reps/Minutes 2x 30 TrA with ball squeeze Reps/Minutes 10x TrA activation Reps/Minutes 10x Comments with breath Sitting Exercises HS stretch Reps/Minutes 2x 30 Standing Exercises squat Reps/Minutes 10x Comments emphasis on long spine, hip hinge Neuro Re-Education Treatment Balance Activities Tiltboard Details AP, FWD/BCK Reps/Duration 6 MIN Self-Care/Home Management Treatment Education Patient Education Home Exercise Program Other Education updated written program; added squat PT-OP-R Modalities Start: 04/26/19 13:34 Freq: Status: Active Protocol: Document 10/25/19 13:34 SAK (Rec: 10/25/19 14:39 SAK [id number]) Hot Pack/Cold Pack Treatment Cold Pack Location lumbar spine Patient Position Sitting Treatment Duration (minutes) 10 Patient Tolerance Good PT-OP-S Aquatic Treatment Start: 04/26/19 13:34 Freq: Status: Active Protocol: Document 05/23/19 11:00 SAK (Rec: 05/23/19 17:11 SAK [id number]) Aquatics Treatment Pool Entry/Exit Pool Entry/Exit Method Stairs Assistance Contact Guard Assistance, Verbal Cues Water Walking step-ups Level of Assistance Contact Guard Assistance, Verbal Cues Comments 8 box forward, back, march, soldier march, side Water Level Chest Level Level of Assistance Minimal Assistance,Verbal Cues Lower Extremity Exercises hip flex/ext, ab/ad, circles Body Position Standing Water Level Chest Level Reps/Duration 10x ea Lower Extremity Stretches ITB Body Position Standing Water Level Chest Level Equipment Large Noodle Reps/Duration 2x Comments mod assist HS Body Position Standing Equipment Large Noodle Reps/Duration 2x Comments mod assist Spinal Exercises supine to stand Body Position Supine Water Level Chest Level Reps/Duration 3x Comments mod assist standing core stab Details with shoulder hor ab/ad, flex/ ext (monica and unil) Body Position Standing Water Level Chest Level Comments verbal cues Balance SLS Reps/Duration 3x PT-OP-T Assessment and Plan Start: 04/26/19 13:34 Freq: Status: Active Protocol: Document 10/25/19 13:38 SAK (Rec: 10/25/19 14:38 [facility] [id number]) Physical Therapy Assessment Goals Four Impairment decreased flexibility and strength Short Term Goal (STG) Patient will be instructed in HEP and aquatic exercise program to address impairments STG Duration 10/25/19 Deputy Manager Goal (LTG) Patient will be independent and compliant with HEP and aquatic exercie program. LTG Duration 11/25/19 Three Impairment postural impairment Short Term Goal (STG) Patient will demonstrate understanding of neutral postural alignment and be able to self correct 50% of time with cues STG Duration 10/25/19 Deputy Manager Goal (LTG) Patient will demonstrate improved postural alignment with functional activities including walking and lifting for spinal protection pain management. LTG Duration 09/25/19 Two Impairment Poor ability to activate core musculature for spinal stabilzation Short Term Goal (STG) Patient able to demonstrate activation of core musculature in a supine position consistently with therapeutic exercises STG Duration 10/25/19 Senior Care Goal (LTG) Patient able to demonstrate activation of core musculature during transitional movements and functional activities for the purposes of spinal protection and improved activity tolerance. LTG Duration 11/25/19 One Impairment Oswestry disability Index score 68% Short Term Goal (STG) Decrease Oswestry disability Index score to no greater than 50% STG Duration 10/25/19 Deputy Manager Goal (LTG) Decrease Oswestry disability Index score to no greater than 30% as evidence of improved functional activity tolerance. LTG Duration 11/25/19 Assessment Summary Assessment Much improved TrA activation with use of breath. Has difficult self-correcting balance when loses balance to the left more than right. Physical Therapy Plan Frequency and Duration Frequency of Treatment 2x/Week Duration of Treatment 12 wks Plan of Care Start Date 09/26/19 Plan of Care End Date 11/25/19 Therapeutic Interventions Therapeutic Interventions Aquatic Therapy,Home Exercise Program,Neuromuscular Re- education,Patient/Caregiver Education,Self-Care/Home Management,Soft Tissue Mobilization,Taping, Therapeutic Activities, Therapeutic Exercises Modalities Cold Pack/Ice Massage,Electric Stimulation,Hot Packs, Ultrasound Next Visit Focus/Plan Next Note Type Treatment Note Next Visit Plan Progress ther ex as tolerated, including 6 min walk test for reference.
--- NOTE | 2019-11-08 08:05 | PT-OP ANOTE ---
Patient cancelled appointment via Telev[employer], CAMILLA
--- NOTE | 2019-11-12 14:05 | PT-OP ANOTE ---
Pt no showed appt today, called and spoke with him, he stated pressed cancel today's appt on the automated system. Pt stated hasn't been feeling well and unable to come in for therapy at this time. He reported is being followed by his physican. He asked to cancel all remaining appts for PT and speech and will call when feeling better to get reestablished. CATEGORY PLANNER notified therapists and front office java developer.
--- NOTE | 2019-12-10 11:32 | PT.OPDS ---
Current Diagnoses Other intervertebral disc degeneration, lumbar region (10/25/19) Abnormal posture (10/25/19) Weakness (10/25/19) Strain of muscle, fascia and tendon of lower back, initial encounter (10/25/19) Visit Care Team Role Provider Type Eleazar Armstrong MD Attending Provider Physician Primary Care Provider Specialty: Internal Medicine Address: [address] [place] [address], [address], [facility] Email: [email or web address] Visit Number Visit Number 5 Discharge Summary PT-OP-B Current Condition Start: 04/26/19 13:34 Freq: Status: Active Protocol: Document 04/26/19 13:41 SAK (Rec: 04/26/19 14:35 SAK [id number]) Current Condition History of Current Condition Onset Date 1 month Current Complaints worsening LBP History of Current Condition Reports worsening LBP for no known reason. Denies N/T. Has long history of LBP starting with water skiing accident when he was 19 y/o. Has put on weight. Not currently doing any exercising , largely due to depression; states a couple deaths. Using ice and heat; prefers ice. Prior Treatments and Tests laminectomy 2019 L4-S1 Future Testing and Treatments Planned lumbar x-ray yesterday Treatment Goals Patient/Caregiver Goals decrease my pain learn how to strengthen my core, become more active, get healthier. Prior Functional Status Baseline Function- ADL's Modified Independent Baseline Function- Mobility Modified Independent Baseline Function- Gait independent, sometimes with cane or walker Baseline Function- Work/School retired Baseline Function- Recreation/Hobbies limited Current Functional Impairments (Reported) Functional Limitations- ADL's minimal, painful Functional Limitations- Mobility/Gait painful, more use of cane and walker Functional Limitations- Work/School RETIRED Functional Limitations- Recreation/ unable at this time due to Hobbies pain, most of day in bed. Personal Factors Other Personal Factors That May Effect anxiety, history of depression Therapy/Recovery (reports not currently depressed) PT-OP-C Subjective Start: 04/26/19 13:34 Freq: Status: Active Protocol: Document 10/25/19 13:38 SAK (Rec: 10/25/19 14:38 SAK [id number]) OP-PT Subjective Patient Comments Patient Comments No new c/o. Had to cancel last appointment due to migraine. PT-OP-H Neuro Start: 04/26/19 13:34 Freq: Status: Active Protocol: Document 04/26/19 13:41 SAK (Rec: 04/26/19 14:35 SAK [id number]) Sensation Evaluation Gross Sensation Gross Sensation WNL Deep Tendon Reflex & Clonus Assessment Deep Tendon Reflex Bilateral Patellar Deep Tendon Reflex 2+ Normal PT-OP-J Posture/Palpation/Skin Start: 04/26/19 13:34 Freq: Status: Active Protocol: Document 04/26/19 13:41 SAK (Rec: 04/26/19 14:35 SAK [id number]) Posture Evaluation Position Standing Head/C-Spine Posture Forward Head T-Spine Posture Increased Kyphosis L-Spine Posture Flattened Shoulder Posture (L) Rounded,(R) Rounded Scapula Posture (L) Protracted,(R) Protracted Pelvis Posture Anteriorly Tilted Hip Posture (R) Externally Rotated Ankle/Foot Posture (R) Forefoot Abducted Palpation Assessment Location lumbar spine Palpation Findings Soft Tissue Tightness,Muscle Guarding PT-OP-K Range of Motion Start: 04/26/19 13:34 Freq: Status: Active Protocol: Document 04/26/19 13:41 SAK (Rec: 04/26/19 14:35 [facility] [id number]) Lumbar Spine Range of Motion Lumbar Spine Active Testing Position Standing ROM Limitations Soft Tissue Tightness,Pain Comments mod decrease all motions Hip Goniometric Range of Motion Hip monica Straight Leg Raise 55 Extension 0 Abduction 25 Internal Rotation 15 External Rotation 45 Hip ROM Limitations Hip ROM Limitations Soft Tissue Tightness Knee Goniometric Range of Motion Knee monica Knee ROM WFL Yes Ankle and Foot Goniometric Range of Motion Ankle and Foot monica Ankle/Foot ROM WFL Yes PT-OP-L Special Tests Start: 04/26/19 13:34 Freq: Status: Active Protocol: Document 04/26/19 13:41 SAK (Rec: 04/26/19 15:03 [facility] [id number]) Special Tests Lumbar Spine Special Tests Prone Press Up Test Results negative Passive Neck Flexion Test Results negative Straight Leg Raise Test Results negative Compression Test Results negative PT-OP-M Strength Start: 04/26/19 13:34 Freq: Status: Active Protocol: Document 09/26/19 13:34 SAK (Rec: 09/26/19 14:34 SAK [id number]) Hip Strength Hip Manual Muscle Testing Left Flexion (L2) 4- Good- Extension (S1) 4- Good- Abduction 4- Good- External Rotation 4- Good- Internal Rotation 4 Good Right Flexion (L2) 4 Good Extension (S1) 4- Good- Abduction 4 Good External Rotation 4- Good- Internal Rotation 4 Good Knee Strength Knee Manual Muscle Testing monica Flexion (S2) 5 Normal Extension (L3) 5 Normal Ankle/Foot Strength Ankle and Foot Manual Muscle Testing monica Dorsiflexion (L4) 5 Normal PT-OP-T Assessment and Plan Start: 04/26/19 13:34 Freq: Status: Active Protocol: Document 12/10/19 11:31 LAURY (Rec: 12/10/19 11:32 [facility] [id number]) Physical Therapy Plan Discharge Physical Therapy Discharge Reasons Patient Request
== END 2019-12-11 10:52 ==
LOC: PHYS 13:45
PROVIDERS: PCP Internal Medicine; Visit Provider Internal Medicine
DX: S39.012A Strain of muscle, fascia and tendon of lower back, initial encounter (principal); M51.36 Other intervertebral disc degeneration, lumbar region; R29.3 Abnormal posture; R53.1 Weakness
CPT/HCPCS: 97010; 97110; 97112; 97113; 97162; 97164; 97535

== ENCOUNTER 2019-10-29 12:30 | Outpatient (RCR) | payer MEDICARE, SELFPAY ==
[2019-09-30 20:07] VITALS: BMI 34.4
--- NOTE | 2019-10-17 16:04 | ST.OPIE ---
Visit Care Team Role Provider Type Eleazar Armstrong MD Attending Provider Physician Primary Care Provider Referring Provider Specialty: Internal Medicine Address: [address] [place] [address], [address], [place], [address] Email: [email or web address] Speech-Language Pathology Initial Evaluation RN CHILD Cognitive/Memory Evaluation Start: 10/17/19 12:24 Freq: Status: Active Protocol: Document 10/17/19 12:27 PATRICK (Rec: 10/17/19 13:06 PATRICK [id number]) Evaluation of Cognition Session Time Visit Start Time 13:30 Visit Stop Time 14:20 Total Visit Minutes 50 Visit Information Visit Number Initial Evaluation Plan of Care Dates 10/17/19 - 01/10/20 Insurance Information Medicare Next Note Type Next Note Type Treatment Note Referral Referring Physician Dr. 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 Pt was evaluated by RN CHILD during hospital stay and scored 19/30 on MoCA cognitive assessment. Also, in 2003, the pt experienced medical induced coma for 2 months with ventilator assistance following gastric bypass surgery in which the intestine was inadvertently clipped, resulting in sepsis. Per pt report, lasting effects of strokes include cognitive changes such as memory deficits (e.g., dates, details of conversations), reduced attention (easily distracted), slow and effortful analytical reasoning, and difficulty reading. Pt had to quit work in 2005 d/t impairments and feels that they have worsened significantly over the last 2 years. He has recently questioned if he should stop driving because he falls asleep easily, although this is being treated with medication. He stated he feels safe driving short distances only. 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 He feels that even basic math skills are poor. 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 Previous Therapy Previous Speech-Language Therapy Yes History of Therapy Outpatient at clinic ~2005 targeting cognitive therapy. More recently (~2017?) he saw Hugh Conti, neuropsychologist and cognitive therapist in [place]. He agreed to bring assessment results to next appt. Subjective Subjective The pt arrived on time and provided thorough case history . - Informal Assessment Receptive Language Normal Yes: For basic egocentric conversation Expressive Language Normal Yes: For basic egocentric conversation Articulation Normal Yes Cognition Normal No: Requires further assessment Assessment Findings [facility] Mental Status ([facility]) test administered with the following results: Total Score: 20/30 Pt was oriented to year and state; missed day of week by one day. He immediately recalled 5/5 objects, and 4/5 objects after ~5-10 min delay. He named 11 animals in 30 sec, followed by a 20-sec pause and naming of 3 insects. Reverse number recitation: up to 3-digits. Clock Drawing: Numbers complete and appropriately spaced; distinct hour and minute hands; time set to 2 minutes past 11. Short Story Comprehension/ Recall: Correctly answered 3/4 questions. Responded that female in story returned to work when she was a teenager, as opposed to when her children were teenagers. Recommendations Further assessment of expressive, receptive, and cognitive communication skills via Cognitive Linguistic Quick Test. Formal Assessment Standardized Test [facility] Mental Status ([facility]) test Administration Complete Raw Score 20/30 Results Pt was oriented to year and state; missed day of week by one day. He immediately recalled 5/5 objects, and 4/5 objects after ~5-10 min delay. He named 11 animals in 30 sec, followed by a 20-sec pause and naming of 3 insects. Reverse number recitation: up to 3-digits. Clock Drawing: Numbers complete and appropriately spaced; distinct hour and minute hands; time set to 2 minutes past 11. Short Story Comprehension/ Recall: Correctly answered 3/4 questions. Responded that female in story returned to work when she was a teenager, as opposed to when her children were teenagers. - Cognition - Memory - Findings Cognitive/Memory Impressions The pt presents with cognitive communication deficits, as measured by SLUMS assessment. Further assessment is required to determine severity. The pt reports deficits in areas of memory, attention, and slowed processing skills impacting his ability to perform ADLs and participate in hobbies and increasing his dependence on others. Recommendations Recommendations Skilled intervention is medically necessary to improve the pt's cognitive communication skills to perform ADLs, participate in hobbies, increase/maintain independence and quality of life. Frequency and Duration: 1x/wk for 3-6 mos Treatment Goals Short Term Goals 1. The pt will participate in further assessment of expressive, receptive, and cognitive communication skills to guide POC. 2. The pt will complete simple math problems (addition, subtraction, multiplication, division up to 2-digit numbers ) with 90% accuracy to improve ability to manage personal finances. 3. The pt will establish external memory tools (e.g., memory notebook, calendar use, etc.) to improve ability to perform ADLs and reduce reliance on spouse. Additional goals to be established after completion of assessment. It Technical Architect Goals 1. The pt will perform math calculations of moderate complexity with 80% accuracy to improve ability to manage finances and participate in hobbies. 2. The pt will perform mathematical story problems of moderate complexity to improve ability to manage finances in functional daily tasks. 3. The pt will demonstrate independent use of external memory tools in 80% of opportunities to increase independence and meet personal and medical responsibilities. Total Time Full Evaluation Time 50
--- NOTE | 2019-11-02 10:31 | ST.OPTN ---
Visit Care Team Role Provider Type Eleazar Armstrong MD Attending Provider Physician Primary Care Provider Referring Provider Address: [address] [place] [address], [address], [place], [address] [facility] Treatment Note [facility] Treatment Note Start: 10/17/19 12:24 Freq: Status: Active Protocol: Document 10/29/19 16:26 PATRICK (Rec: 11/01/19 16:26 PATRICK [id number]) Speech Pathology Treatment Note Session Time Visit Start Time 12:30 Visit Stop Time 13:25 Total Visit Minutes 55 Visit Information Visit Number 04/20 Insurance Information Medicare Setting Treatment Setting Outpatient Care Visit Type Note Type Treatment Note Next Note Type Next Note Type Treatment Note General Information General Information The pt is a 64-yr-old male with medical hx including 4 strokes in right parietal lobe between 6520-2990; multiple TIAs; and complex migraines for which he was hospitalized overnight 09/30/19, with MRI negative for stroke. Pt was evaluated by [facility] during hospital stay and scored 19/30 on MoCA cognitive assessment. Also, in 2003, the pt experienced medical induced coma for 2 months with ventilator assistance following gastric bypass surgery in which the intestine was inadvertently clipped, resulting in sepsis. Per pt report, lasting effects of strokes include cognitive changes such as memory deficits (e.g., dates, details of conversations), reduced attention (easily distracted), slow and effortful analytical reasoning, and difficulty reading. Pt had to quit work in 2005 d/t impairments and feels that they have worsened significantly over the last 2 years. He has recently questioned if he should stop driving because he falls asleep easily, although this is being treated with medication. He stated he feels safe driving short distances only. 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 He feels that even basic math skills are poor. Subjective Observations/Patient Presentation The pt arrived on time. No new complaints. Rehab Expectation/Goals: Patient Goals Ensure he's safe, not a risk to self or others. C/O family hx of dementia Patient Knowledge/Awareness of [facility] Role Good in Treatment Objective Short Term Goals 1. The pt will participate in further assessment of expressive, receptive, and cognitive communication skills to guide POC. GOAL MET 2. The pt will complete simple math problems (addition, subtraction, multiplication, division up to 2-digit numbers ) with 90% accuracy to improve ability to manage personal finances. 3. The pt will establish external memory tools (e.g., memory notebook, calendar use, etc.) to improve ability to perform ADLs and reduce reliance on spouse. 4. The pt will demonstrate understanding of internal memory tools by completing tasks with their use in structured therapeutic tasks with an accuracy of 75% or greater. Prison Goals 1. The pt will perform math calculations of moderate complexity with 80% accuracy to improve ability to manage finances and participate in hobbies. 2. The pt will perform mathematical story problems of moderate complexity to improve ability to manage finances in functional daily tasks. 3. The pt will demonstrate independent use of external memory tools in 80% of opportunities to increase independence and meet personal and medical responsibilities. Treatment Activities Administered Cognitive Linguistic Quick Test for assessment of cognitive- linguistic skills with the following results: Composite Severity Rating: Mild Impairment Attention: WNL Memory: Severe Impairment Executive Functions: WNL Language: WNL Visuospatial Skills: WNL Clock Drawing: Mild Non-Linguistic Cognition: WNL Linguistic/Aphasia: Mild Assessment Rehab Potential Good Impairments Identified Cognitive-Linguistic Skills, Memory - Short Term,Memory - Working Assessment of Overall Progress Unchanged Assessment of Improvement The pt presents with mild cognitive communication skills , most markedly in the area of memory, which is severely impaired. Skilled intervention is medically necessary to train pt in areas of external and internal memory tools in order to maintain/increase independence in performing daily tasks and maintaining relationships and quality of life. Given the pt's family history of dementia, if he does not demonstrate improvement or exhibits difficulty learning new tasks/strategies over the course of treatment, neuropsychological testing may be warranted for more thorough evaluation of possible dementia. Reviewed with Patient Goals,Home Exercise Program Patient/Caregiver Understanding Good Plan Therapeutic Contents Client Education,Cognitive- Linguistic Training,Home Exercise Program,Information Processing Provided Patient/Caregiver Instruction Home Exercise Program,Plan of Care,Questions/Concerns Therapy Recommendations Continue with Current Program
--- NOTE | 2020-01-15 14:29 | ST.OPDS ---
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 Pt was evaluated by E [employer]EL[employer] during hospital stay and scored 19/30 on Mo[facility] cognitive assessment. Also, in 2003, the pt experienced medical induced coma for 2 months with ventilator assistance following gastric bypass surgery in which the intestine was inadvertently clipped, resulting in sepsis. Per pt report, lasting effects of strokes include cognitive changes such as memory deficits (e.g., dates, details of conversations), reduced attention (easily distracted), slow and effortful analytical reasoning, and difficulty reading. Pt had to quit work in 2005 d/t impairments and feels that they have worsened significantly over the last 2 years. He has recently questioned if he should stop driving because he falls asleep easily, although this is being treated with medication. He stated he feels safe driving short distances only. 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 He feels that even basic math skills are poor. Subjective Observations/Patient Presentation Pt called clinic to request discharge from all services. Chief Complaint(s) Cognitive Objective Short Term Goals 1. The pt will participate in further assessment of expressive, receptive, and cognitive communication skills to guide POC. GOAL MET 2. The pt will complete simple math problems (addition, subtraction, multiplication, division up to 2-digit numbers ) with 90% accuracy to improve ability to manage personal finances. 3. The pt will establish external memory tools (e.g., memory notebook, calendar use, etc.) to improve ability to perform ADLs and reduce reliance on spouse. 4. The pt will demonstrate understanding of internal memory tools by completing tasks with their use in structured therapeutic tasks with an accuracy of 75% or greater. Track Repairer Helper Goals 1. The pt will perform math calculations of moderate complexity with 80% accuracy to improve ability to manage finances and participate in hobbies. 2. The pt will perform mathematical story problems of moderate complexity to improve ability to manage finances in functional daily tasks. 3. The pt will demonstrate independent use of external memory tools in 80% of opportunities to increase independence and meet personal and medical responsibilities. Plan Therapy Recommendations Discharge from Speech Therapy Comment Per pt request
== END 2020-01-28 09:16 ==
LOC: SP 12:30
PROVIDERS: PCP Internal Medicine; Referring Provider Internal Medicine; Visit Provider Internal Medicine
DX: R47.1 Dysarthria and anarthria (principal)
CPT/HCPCS: 92507; 92523; 96125

== ENCOUNTER → 2019-11-06 06:45 | Outpatient (CLI) | payer MEDICARE, SELFPAY ==
[2019-09-30 20:07] VITALS: BMI 34.4
[2019-11-06 08:56] LABS: HEMOLYSIS < 15 (0-50); Iron 164 ug/dL (49-181)
[2019-11-06 09:06] LABS: Percent Iron Saturation 46 % (20-50); Total Iron Binding Capacity 353 ug/dL (261-462); Transferrin 278 mg/dL (206-381)
[2019-11-06 09:10] LABS: Alanine Aminotransferase 32 IU/L (<50); Albumin 4.4 g/dL (3.5-5.0); Albumin Globulin Ratio 1.5 (1.0-2.8); Alkaline Phosphatase 77 U/L (38-126); Aspartate Aminotransferase 34 IU/L (17-59); BUN Creatinine Ratio 12.6 (6-22); Bilirubin Total 0.7 mg/dL (0.2-1.3); Blood Urea Nitrogen 15 mg/dL (9-20); Carbon Dioxide 31 mmol/L (22-32); Chloride 105 mmol/L (98-107); Cholesterol 209 mg/dL (140-199); Estimated Glomerular Filt Rate > 60.0 mL/min (>60); Globulin 2.9 g/dL (1.7-4.1); Glucose 85 mg/dL (80-110); HDL Cholesterol 59 mg/dL (40-60); HEMOLYSIS < 15 (0-50); LDL Cholesterol Calculated 130 mg/dL (<100); Potassium 4.3 mmol/L (3.4-5.1); Sodium 141 mmol/L (137-145); Total Protein 7.3 g/dL (6.3-8.2); Triglycerides 99 mg/dL (35-150)
[2019-11-06 09:29] LABS: Thyroid Stimulating Hormone 0.114 uIU/mL (0.47-4.68)
[2019-11-06 09:49] LABS: Hep C Virus Ab w/Reflex Quant NEGATIVE s/c (NEGATIVE); Hepatitis B Surface Antigen NEGATIVE s/c (NEGATIVE)
[2019-11-07 04:39] LABS: Hepatitis B Surf Ab Qualitativ Reactive (.)
[2019-11-07 08:13] LABS: Ceruloplasmin 25.5 mg/dL (16.0-31.0)
[2019-11-08 15:10] LABS: ANA Screen, IFA Negative (.)
[2019-11-09 12:11] LABS: Smooth Muscle Antibody 8 Units (0-19)
== END ==
PROVIDERS: PCP Internal Medicine; Referring Provider Internal Medicine Cardiovascular Disease; Visit Provider Internal Medicine
DX: E03.9 Hypothyroidism, unspecified (principal); G89.4 Chronic pain syndrome; I48.0 Paroxysmal atrial fibrillation; R74.0 Nonspecific elevation of levels of transaminase and lactic acid dehydrogenase [LDH]
CPT/HCPCS: 36415; 80053; 80061; 82390; 83516; 83540; 83550; 84439; 84443; 86038; 86706; 86803; 87340

== ENCOUNTER → 2019-12-13 13:31 | Outpatient (CLI) | payer MEDICARE, SELFPAY ==
[2019-09-30 20:07] VITALS: BMI 34.4
[2019-12-13 14:27] LABS: Alanine Aminotransferase 28 IU/L (<50); Albumin 4.4 g/dL (3.5-5.0); Albumin Globulin Ratio 1.9 (1.0-2.8); Alkaline Phosphatase 78 U/L (38-126); Aspartate Aminotransferase 38 IU/L (17-59); Bilirubin Total 0.5 mg/dL (0.2-1.3); Blood Urea Nitrogen 30 mg/dL (9-20); Calcium 10.1 mg/dL (8.4-10.2); Carbon Dioxide 34 mmol/L (22-32); Chloride 99 mmol/L (98-107); Cholesterol 163 mg/dL (140-199); Estimated Glomerular Filt Rate > 60.0 mL/min (>60); Globulin 2.3 g/dL (1.7-4.1); Glucose 88 mg/dL (80-110); HDL Cholesterol 41 mg/dL (40-60); HEMOLYSIS < 15 (0-50); LDL Cholesterol Calculated 78 mg/dL (<100); Potassium 5.1 mmol/L (3.4-5.1); Sodium 139 mmol/L (137-145); Total Protein 6.7 g/dL (6.3-8.2); Triglycerides 219 mg/dL (35-150)
[2019-12-13 14:28] LABS: Lithium 0.4 mmol/L (0.6-1.2)
== END ==
PROVIDERS: Psychiatry & Neurology Psychiatry; PCP Internal Medicine; Referring Provider Internal Medicine; Visit Provider Internal Medicine Cardiovascular Disease
DX: E78.5 Hyperlipidemia, unspecified (principal); F33.3 Major depressive disorder, recurrent, severe with psychotic symptoms
CPT/HCPCS: 36415; 80053; 80061; 80178

== ENCOUNTER 2020-02-20 22:36 | Emergency (ER) | payer MEDICARE, SELFPAY ==
[2019-09-30 20:07] VITALS: BMI 34.4
[2020-02-21] VITALS (8 sets, daily range): BP systolic 119–135; BP diastolic 79–85; PULSE 59–81; RESP 18–20; O2SAT 91–97
[2020-02-21] MEDS: SODIUM CHLORIDE 0.9% 1,000 ML 1000 ML IV (01:04)
[2020-02-21] MEDS: METOCLOPRAMIDE 10 MG/2 ML INJ IV (01:05)
[2020-02-21] MEDS: diphenhydrAMINE 50 MG/ML VIAL 25 MG IV (01:05)
[2020-02-21] MEDS: DEXAMETHASONE 10 MG/ML VIAL IV (01:06)
--- NOTE | 2020-02-21 01:13 | PC.NURSE ---
He was awakened easily for vitals and meds,statted his headache was much better now.
--- NOTE | 2020-02-21 03:00 | ED.HA ---
HPI - Headache General Chief Complaint: Headache Stated Complaint: throbbing headache for a week Time Seen by Provider: 02/21/20 00:53 Mode of arrival: Ambulatory Limitations: no limitations History of Present Illness HPI Narrative: 65-year-old gentleman of chronic migraine/chronic daily headache, chronic pain syndrome, history of stroke history of Cris-en-Y bypass and paroxysmal atrial fibrillation presents with 8 days of classic migraine like symptoms. Describes symptoms as overall headache sensitivity to light, smells, sounds with mild nausea. No other acute neurologic findings. No fevers, cough, chills, abdominal pain, chest pain, dyspnea. He notes that he takes Imitrex daily and sometimes up to 4 times a day as prescribed by a headache specialist previously. He is not currently being followed by a neurologist and would like to find a new 1 with headache of specialty. Related Data Home Medications Medication Instructions Recorded Confirmed Breo Ellipta 1 puff INH DAILY #0 12/03/16 02/06/20 Combivent Respimat See Rx Instructions .ROUTE 04/15/17 02/06/20 .COMPLEX #0 MDD 6 albuterol sulfate 1.25 mg INH Q4HP PRN #0 05/24/17 02/06/20 Vitamin B-12 1 tab PO DAILY 02/21/18 02/06/20 desonide 1 applic TOPICAL PRN PRN 02/21/18 02/06/20 calcium citrate 500 mg PO BID tab 03/28/18 02/06/20 apixaban 5 mg tablet 5 mg PO BID 05/30/18 02/06/20 clobetasol 0.05 % topical ointment 1 applic TOPICAL SUSA PRN 04/18/19 02/06/20 multivitamin 1 tab PO TID tab 04/18/19 02/06/20 metoprolol tartrate 25 mg tablet 12.5 mg PO BID tab 12/26/19 02/06/20 armodafinil 250 mg tablet 125 mg PO ONCE PRN tab 02/06/20 02/06/20 cholecalciferol (vitamin D3) 10 10 mcg PO DAILY 02/06/20 02/06/20 mcg (400 unit) capsule sumatriptan succinate 100 mg tablet 100 mg PO BID PRN tab 02/06/20 Previous Rx's Medication Instructions Recorded montelukast 10 mg tablet 10 mg PO BEDTIME #14 tab 05/18/18 prochlorperazine maleate 10 mg 10 mg PO Q8H PRN #60 tab 02/06/19 tablet levothyroxine 100 mcg tablet 100 mcg PO QAM #90 tab 05/18/[address] #1 each 08/02/19 lithium carbonate 300 mg capsule 300 mg PO BEDTIME #90 cap 11/15/19 ketoconazole 2 % shampoo See Rx Instructions .ROUTE 11/30/19 .COMPLEX #360 milliliter bupropion HCl 300 mg 24 hr tablet, See Rx Instructions .ROUTE 12/26/19 extended release .COMPLEX #90 tab duloxetine 60 mg capsule,delayed 60 mg PO BID #180 cap 12/26/19 release tamsulosin 0.4 mg capsule 0.4 mg PO DAILY #90 cap 01/01/20 clonazepam 1 mg tablet See Rx Instructions .ROUTE 02/06/20 .COMPLEX #150 tab MDD 5 mg liothyronine 25 mcg tablet 12.5 mcg PO DAILY #45 tab 02/08/20 Allergies Allergy/AdvReac Type Severity Reaction Status Date / Time doxycycline [DOXYCYCLINE] Allergy Mild ITCHING Verified 02/06/20 13:41 ketorolac [KETOROLAC] Allergy Unknown Verified 02/06/20 13:41 NSAIDS (Non-Steroidal AdvReac Unknown TO AVOID Verified 02/06/20 13:41 Anti-Inflamma R/T [NSAIDS (NON-STEROIDAL GASTRIC ANTI-INFLAMMA] BYPASS controlled substance AdvReac Uncoded 02/06/20 13:41 agreement Review of Systems Review of Systems ROS Unobtainable: All systems reviewed & are unremarkable except as noted in HPI and below Patient History Medical History Anxiety (Chronic) Asthma (Acute) Chronic left shoulder pain (Chronic 01/20/16) Chronic obstructive pulmonary disease (Chronic 08/05/17) Chronic pain syndrome (Chronic 11/08/16) Cognitive disorder (Chronic 04/24/14) 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) Essential tremor (Acute) Facet arthropathy, lumbar (Chronic) H/O migraine (Inactive) H/O renal calculi (Inactive) History of stroke (Inactive) Hypersomnia (Chronic) Hypothyroidism (Chronic) Insomnia (Chronic) Iron deficiency (Chronic) Major depressive disorder, recurrent episode, severe (Chronic) Mixed hyperlipidemia (Chronic) Narcotic dependence (Resolved 09/01/16) Obesity with body mass index (BMI) of 30.0 to 39.9 (Chronic 12/06/14) Paroxysmal atrial fibrillation (Chronic) Patent foramen ovale (Resolved) Pneumonia (Resolved) Post traumatic stress disorder (PTSD) (Chronic) Psoriasis (Chronic) S/P ECT (electroconvulsive therapy) (Acute) Sarcoidosis (Chronic) Sleep apnea (Ruled-out) Vitamin B12 deficiency (Chronic 02/19/11) Surgical History History of gastric bypass (Inactive ~2003) History of Cris-en-Y gastric bypass (Inactive ~2003) History of total shoulder replacement (Inactive ~12/2015) S/P laparoscopic cholecystectomy (Inactive 10/18/18) S/P lumbar laminectomy (Inactive ~10/2017) Family History Father No problems noted. Mother No problems noted. 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 yeimy/anglican: [employer]ism travel history: over 6 months ago and other Smoking Status: Former smoker Tobacco: How many years used: 10 Smokeless tobacco user: other quit status: quit date established second hand exposure: Yes (Childhood) alcohol intake: current substance use type: does not use additional social history: Currently involved in a legal dispute with his son over the management of the patient's stepfather's estate. This has caused him significant levels of anxiety and frustration as he attempts to navigate this problem with his family. Smoking Status: Former smoker alcohol intake frequency: a few times a month Substance Use Type: does not use Exam Narrative Exam Narrative: General: Moderate distress with light sensitivity complaining of headache Respiratory: Able to speak in full sentences, no obvious respiratory distress Skin: No obvious rashes, warm and dry Neurologic: Grossly intact no obvious asymmetries or abnormalities Psych, appropriate insight and affect, cooperative Initial Vital Signs Initial Vital Signs: Vital Signs Pulse Rate 69 02/21/20 01:11 Pulse Oximetry 93 02/21/20 01:11 Course Orders Ordered: Discontinued Medications Dexamethasone (Decadron) 10 mg IV NOW ONE Stop: 02/21/20 00:54 Last Admin: 02/21/20 01:06 Dose: 10 mg Documented by: JONNY Diphenhydramine HCl (Benadryl) 25 mg IV NOW ONE Stop: 02/21/20 00:54 Last Admin: 02/21/20 01:05 Dose: 25 mg Documented by: JONNY Sodium Chloride (Normal Saline 0.9%) 1,000 mls @ 1,000 mls/hr IV BOLUS ONE Stop: 02/21/20 01:52 Last Infusion: 02/21/20 02:38 Dose: 0 mls/hr Documented by: Admin: 02/21/20 01:04 Dose: 1,000 mls/hr Documented by: JONNY Metoclopramide HCl (Reglan) 10 mg IV NOW ONE Stop: 02/21/20 00:54 Last Admin: 02/21/20 01:05 Dose: 10 mg Documented by: JONNY Vital Signs Vital signs: Vital Signs - 8 hr 02/21/20 01:11 02/21/20 01:12 02/21/20 01:13 Pulse Rate 69 72 81 Respiratory Rate 20 Blood Pressure 124/85 124/85 Pulse Oximetry 93 97 94 02/21/20 01:30 02/21/20 01:56 02/21/20 02:00 Pulse Rate 59 L 67 62 Respiratory Rate 18 Blood Pressure 119/79 Pulse Oximetry 93 93 91 02/21/20 02:30 02/21/20 02:58 Pulse Rate 60 Respiratory Rate Blood Pressure 135/79 Pulse Oximetry 93 [facility] - Headache Medical Records Attestation: I reviewed the patient's medical records. [facility] Narrative Medical decision making narrative: 65-year-old gentleman with a history of a daily headache previously followed by a headache specialist here and [place] but that provider has since left the community. On exam this very much appears to be his usual chronic migraine. No red flags or acute neurologic findings. No suggestion of infection, stroke, developing tumors or different neurologic symptoms. Headache improved with fluid, Reglan and Decadron. He is discharged home. He was unaware that Dr. Scott Duarte, neurologist at [facility] does specialize in headaches and may be a reasonable option for consultation in the future. Discharge Plan Departure Patient Disposition: Home Clinical Impression: Chronic migraine Instructions: DI for Migraine Activity Restrictions/Additional Instructions: I am sorry you are having such a difficult time with recurrent headaches. In the emergency room you received 1 L of fluid, IV reglan and IV decadron with moderate relief of your severe symptoms. I hope you are able to get some sleep and wake up feeling more refreshed. I would encourage you to follow-up with Dr. Armstrong and to reestablish with a headache specialist. Chronic daily headaches and use daily Imitrex may have other options for treatment. I wish you the best Prescriptions: No Action sumatriptan succinate 100 mg tablet 100 mg PO BID PRN (Reason: Headache) RF: 0 cholecalciferol (vitamin D3) 10 mcg (400 unit) capsule 10 mcg PO DAILY RF: 0 clonazepam 1 mg tablet See Rx Instructions .ROUTE .COMPLEX MDD 5 mg Qty: 150 RF: 1 armodafinil [Nuvigil] 250 mg tablet 125 mg PO ONCE PRN (Reason: as directed) RF: 0 lithium carbonate 300 mg capsule 300 mg PO BEDTIME Qty: 90 RF: 3 metoprolol tartrate 25 mg tablet 12.5 mg PO BID RF: 0 bupropion HCl 300 mg tablet extended release 24 hr See Rx Instructions .ROUTE .COMPLEX Qty: 90 RF: 3 duloxetine [Cymbalta] 60 mg capsule,delayed release(DR/EC) 60 mg PO BID Qty: 180 RF: 3 Breo Ellipta 200 MCG/25 MCG blister with device 1 puff INH DAILY Qty: 0 RF: 0 Combivent Respimat 4 GM mist See Rx Instructions .ROUTE .COMPLEX MDD 6 Qty: 0 RF: 0 albuterol sulfate 1.25 MG/3 ML solution for nebulization 1.25 mg INH Q4HP PRN (Reason: Shortness Of Breath) Qty: 0 RF: 0 montelukast [Singulair] 10 mg tablet 10 mg PO BEDTIME Qty: 14 RF: 0 levothyroxine 100 mcg tablet 100 mcg PO QAM Qty: 90 RF: 3 tamsulosin 0.4 mg capsule 0.4 mg PO DAILY Qty: 90 RF: 3 liothyronine 25 mcg tablet 12.5 mcg PO DAILY Qty: 45 RF: 1 Hold Instructions: Overtreatment prochlorperazine maleate 10 mg tablet 10 mg PO Q8H PRN (Reason: nausea and vomiting) Qty: 60 RF: 4 ketoconazole 2 % shampoo See Rx Instructions .ROUTE .COMPLEX Qty: 360 RF: 5 calcium citrate 250 mg calcium tablet 500 mg PO BID RF: 0 (DME) Disabled Parking Qty: 1 RF: 0 desonide 0.05 % cream 1 applic Topical PRN PRN (Reason: Inflammation) RF: 0 Vitamin B-12 1 tab PO DAILY RF: 0 clobetasol 0.05 % ointment 1 applic Topical SUSA PRN (Reason: Rash) RF: 0 multivitamin Tablet 1 tab PO TID RF: 0 Eliquis 5 mg tablet 5 mg PO BID RF: 0 Referrals: Eleazar Armstrong MD [Primary Care Provider] -
== END 2020-02-21 03:10 | disposition home or self-care (01) ==
PROVIDERS: Emergency Provider Emergency Medicine; PCP Internal Medicine
DX: G43.709 Chronic migraine without aura, not intractable, without status migrainosus (principal); I48.91 Unspecified atrial fibrillation
CPT/HCPCS: 36415; 96361; 96374; 96375; 99284; J1100; J1200; J1642; J2765

== ENCOUNTER → 2020-05-15 15:46 | Outpatient (CLI) | payer MEDICARE, SELFPAY ==
[2019-09-30 20:07] VITALS: BMI 34.4
[2020-05-15 17:02] LABS: Magnesium 2.3 mg/dL (1.6-2.3)
[2020-05-15 17:26] LABS: Thyroid Stimulating Hormone 0.022 uIU/mL (0.47-4.68)
== END ==
PROVIDERS: PCP Internal Medicine; Referring Provider Internal Medicine Cardiovascular Disease; Visit Provider Internal Medicine Cardiovascular Disease
DX: R00.2 Palpitations (principal); I48.0 Paroxysmal atrial fibrillation; I10 Essential (primary) hypertension
CPT/HCPCS: 36415; 83735; 84443

== ENCOUNTER 2020-07-28 03:27 | Emergency (ER) | payer MEDICARE, SELFPAY ==
[2019-09-30 20:07] VITALS: BMI 34.4
--- NOTE | 2020-07-28 03:30 | ED_ITS ---
HPI - Dental/Oral General Chief complaint: Dental/Oral Stated complaint: broke tooth upper left, pain throbbing Time Seen by Provider: 07/28/20 03:30 Source: patient Mode of arrival: Ambulatory Limitations: no limitations History of Present Illness HPI Narrative: 65-year-old male former smoker with extensive medical history including chronic pain, migraines, insomnia presents with a chief complaint of a dental injury suffered yesterday. He states he was biting down on a hard object and felt his left upper molar cracked. He has increasing, significant pain which is worse with eating or drinking. He denies fever or chills. He denies facial swelling. MD Complaint: tooth pain and tooth injury Teeth map: 1. Onset (ago): day(s) Duration: constant Severity: moderate Severity scale (1-10): 7 Relieving factors: nothing Exacerbating factors: chewing, cold, heat and drinking fluids Context: history of dental caries Associated symptoms: fever Treatment prior to arrival: none Related Data Home Medications Medication Instructions Recorded Confirmed Breo Ellipta 1 puff INH DAILY #0 12/03/16 05/21/20 Combivent Respimat See Rx Instructions .ROUTE 04/15/17 05/21/20 .COMPLEX #0 MDD 6 albuterol sulfate 1.25 mg INH Q4HP PRN #0 05/24/17 05/21/20 Vitamin B-12 1 tab PO DAILY 02/21/18 05/21/20 desonide 1 applic TOPICAL PRN PRN 02/21/18 05/21/20 calcium citrate 500 mg PO BID tab 03/28/18 05/21/20 apixaban 5 mg tablet 5 mg PO BID 05/30/18 05/21/20 clobetasol 0.05 % topical ointment 1 applic TOPICAL SUSA PRN 04/18/19 05/21/20 multivitamin 1 tab PO TID tab 04/18/19 05/21/20 armodafinil 250 mg tablet 125 mg PO ONCE PRN tab 02/06/20 05/21/20 cholecalciferol (vitamin D3) 10 10 mcg PO DAILY 02/06/20 05/21/20 mcg (400 unit) capsule sumatriptan succinate 100 mg tablet 100 mg PO BID PRN tab 02/06/20 05/21/20 Previous Rx's Medication Instructions Recorded Disabled Parking #1 each 08/02/19 ketoconazole 2 % shampoo See Rx Instructions .ROUTE 11/30/19 .COMPLEX #360 milliliter levothyroxine 100 mcg tablet 100 mcg PO QAM #90 tab 04/16/20 liothyronine 25 mcg tablet 12.5 mcg PO DAILY #45 tab 04/16/20 montelukast 10 mg tablet 10 mg PO BEDTIME #90 tab 04/16/20 tamsulosin 0.4 mg capsule 0.4 mg PO DAILY #90 cap 04/16/20 bupropion HCl 300 mg 24 hr tablet, See Rx Instructions .ROUTE 04/17/20 extended release .COMPLEX #90 tab duloxetine 60 mg capsule,delayed 60 mg PO BID #180 cap 04/17/20 release sumatriptan 20 mg/actuation nasal 20 mg NASAL ONCE #6 ea 05/23/20 spray prochlorperazine maleate 10 mg 10 mg PO Q8H PRN #90 tab 05/26/20 tablet metoprolol tartrate 25 mg tablet 12.5 mg PO BID #90 tab 06/02/20 clonazepam 1 mg tablet See Rx Instructions .ROUTE 07/02/20 .COMPLEX #405 tab MDD 4.5 mg lithium carbonate 300 mg tablet 300 mg PO BEDTIME #30 tab 07/02/20 zolpidem 10 mg tablet 10 mg PO BEDTIME #30 tab 07/07/20 Allergies Allergy/AdvReac Type Severity Reaction Status Date / Time amoxicillin Allergy Severe Face, Verified 07/02/20 13:37 chest, upper back - beat red. Welts. doxycycline [DOXYCYCLINE] Allergy Mild ITCHING Verified 07/02/20 13:37 ketorolac [KETOROLAC] Allergy Unknown Verified 07/02/20 13:37 NSAIDS (Non-Steroidal AdvReac Unknown TO AVOID Verified 07/02/20 13:37 Anti-Inflamma R/T [NSAIDS (NON-STEROIDAL GASTRIC ANTI-INFLAMMA] BYPASS controlled substance AdvReac Uncoded 07/02/20 13:37 agreement Review of Systems Constitutional Constitutional: Denies chills, Denies fatigue, Denies fever(s), Denies frequent falls, Denies lethargy and Denies weakness Eyes Eyes: Denies change in vision, Denies eye discharge, Denies irritation and Denies loss of vision ENT Ears, Nose, Mouth, and Throat: Denies change in voice, Reports dental pain, Denies dizziness, Denies neck pain, Denies sore throat and Denies throat swelling Cardiovascular Cardiovascular: Denies chest pain, Denies irregular heart rhythm, Denies lightheadedness, Denies palpitations, Denies dyspnea, Denies dyspnea on exertion and Denies orthopnea Respiratory Respiratory: Denies cough, Denies dyspnea, Denies dyspnea on exertion and Denies wheezing Gastrointestinal Gastrointestinal: Denies abdominal pain, Denies change in bowel habits, Denies diarrhea, Denies nausea and Denies vomiting Musculoskeletal Musculoskeletal: Denies neck pain and Denies numbness Integumentary/Breasts Skin/Breast: Denies pruritus, Denies erythema, Denies rash and Denies wounds Neurologic Neurologic: Denies behavioral changes, Denies confusion, Denies dizziness, Denies frequent falls, Denies loss of vision, Denies numbness and Denies weakness Psychiatric Psychiatric: Denies anxiety, Denies behavioral changes, Denies confusion, Denies depression, Denies homicidal ideation and Denies suicidal ideation Endocrine Endocrine: Denies fatigue, Denies flushing and Denies palpitations Hematologic/Lymphatic Hematologic/Lymphatic: Denies easy bruising Allergic/Immunologic Allergic/Immunologic: Denies urticaria, Denies throat swelling and Denies w heezing Patient History Medical History (Updated 07/28/20 @ 03:37 by Jarrett Perdomo DO) Anxiety Asthma Chronic left shoulder pain (01/20/16) Chronic obstructive pulmonary disease (08/05/17) Chronic pain syndrome (11/08/16) Cognitive disorder (04/24/14) Deficiency of other specified B group vitamins Essential tremor Facet arthropathy, lumbar H/O migraine H/O renal calculi History of stroke Hypersomnia Hypothyroidism Insomnia Iron deficiency Major depressive disorder, recurrent episode, severe Mixed hyperlipidemia Narcotic dependence (09/01/16) Obesity with body mass index (BMI) of 30.0 to 39.9 (12/06/14) Paroxysmal atrial fibrillation Patent foramen ovale Pneumonia Post traumatic stress disorder (PTSD) Psoriasis S/P ECT (electroconvulsive therapy) Sarcoidosis Sleep apnea Vitamin B12 deficiency (02/19/11) Surgical History History of gastric bypass (~2003) History of Cris-en-Y gastric bypass (~2003) History of total shoulder replacement (~12/2015) S/P laparoscopic cholecystectomy (10/18/18) S/P lumbar laminectomy (~10/2017) Family History Father No problems noted. Mother No problems noted. 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 yeimy/muslim: [employer] travel history: over 6 months ago and other Smoking Status: Former smoker Tobacco: How many years used: 10 Smokeless tobacco user: other quit status: quit date established second hand exposure: Yes (Childhood) alcohol intake: current substance use type: does not use additional social history: Currently involved in a legal dispute with his son over the management of the patient's stepfather's estate. This has caused him significant levels of anxiety and frustration as he attempts to navigate this problem with his family. Smoking Status: Former smoker alcohol intake frequency: a few times a month Substance Use Type: does not use Exam Initial Vital Signs Initial Vital Signs: Vital Signs Temperature 98.7 F 07/28/20 03:38 Pulse Rate 94 H 07/28/20 03:38 Respiratory Rate 16 07/28/20 03:38 Blood Pressure 185/106 H 07/28/20 03:38 Pulse Oximetry 97 07/28/20 03:38 Procedures Nerve Block Nerve Block 1: Time out performed: Yes Local Anesthetic: lidocaine 1% and with epi Amount of anesthesia used (mL): 3 Side: left Intraoral Nerve Block: superior alveolar Procedure Successful: Yes Complications: none Course Orders Ordered: Discontinued Medications Lidocaine/Epinephrine (Lidocaine 1% W/Epi) 1 ml SUBCUT NOW ONE Stop: 07/28/20 03:32 Vital Signs Vital signs: Vital Signs - 8 hr 07/28/20 03:38 Temperature 98.7 F Pulse Rate 94 H Respiratory Rate 16 Blood Pressure 185/106 H Pulse Oximetry 97 Discharge Plan Departure Patient Disposition: Home Clinical Impression: Pain, dental Instructions: DI for Dental Pain Activity Restrictions/Additional Instructions: *You have been diagnosed with [dental pain from cracked tooth. No evidence of infection] *What to do: *Take medications as directed *Follow up with your dental provider in 2-3 days, call for an appointment. Let them know you were seen in the Emergency Department and that we ask that you be seen in follow up *Return to ER if you should have any new, worsening or concerning symptoms, such as [facial swelling, fever, chills or other bothersome symptoms] Prescriptions: No Action sumatriptan succinate 100 mg tablet 100 mg PO BID PRN (Reason: Headache) RF: 0 cholecalciferol (vitamin D3) 10 mcg (400 unit) capsule 10 mcg PO DAILY RF: 0 lithium carbonate 300 mg tablet 300 mg PO BEDTIME Qty: 30 RF: 0 clonazepam 1 mg tablet See Rx Instructions .ROUTE .COMPLEX MDD 4.5 mg Qty: 405 RF: 0 armodafinil [Nuvigil] 250 mg tablet 125 mg PO ONCE PRN (Reason: as directed) RF: 0 Breo Ellipta 200 MCG/25 MCG blister with device 1 puff INH DAILY Qty: 0 RF: 0 Combivent Respimat 4 GM mist See Rx Instructions .ROUTE .COMPLEX MDD 6 Qty: 0 RF: 0 albuterol sulfate 1.25 MG/3 ML solution for nebulization 1.25 mg INH Q4HP PRN (Reason: Shortness Of Breath) Qty: 0 RF: 0 levothyroxine 100 mcg tablet 100 mcg PO QAM Qty: 90 RF: 3 liothyronine 25 mcg tablet 12.5 mcg PO DAILY Qty: 45 RF: 3 Hold Instructions: Overtreatment tamsulosin 0.4 mg capsule 0.4 mg PO DAILY Qty: 90 RF: 3 montelukast [Singulair] 10 mg tablet 10 mg PO BEDTIME Qty: 90 RF: 3 bupropion HCl 300 mg tablet extended release 24 hr See Rx Instructions .ROUTE .COMPLEX Qty: 90 RF: 3 duloxetine [Cymbalta] 60 mg capsule,delayed release(DR/EC) 60 mg PO BID Qty: 180 RF: 3 sumatriptan 20 mg/actuation spray,non-aerosol 20 mg NASAL ONCE Qty: 6 RF: 3 prochlorperazine maleate 10 mg tablet 10 mg PO Q8H PRN (Reason: nausea and vomiting) Qty: 90 RF: 1 metoprolol tartrate 25 mg tablet 12.5 mg PO BID Qty: 90 RF: 3 zolpidem 10 mg tablet 10 mg PO BEDTIME Qty: 30 RF: 0 ketoconazole 2 % shampoo See Rx Instructions .ROUTE .COMPLEX Qty: 360 RF: 5 calcium citrate 250 mg calcium tablet 500 mg PO BID RF: 0 (DME) Disabled Parking Qty: 1 RF: 0 desonide 0.05 % cream 1 applic Topical PRN PRN (Reason: Inflammation) RF: 0 Vitamin B-12 1 tab PO DAILY RF: 0 clobetasol 0.05 % ointment 1 applic Topical SUSA PRN (Reason: Rash) RF: 0 multivitamin Tablet 1 tab PO TID RF: 0 Eliquis 5 mg tablet 5 mg PO BID RF: 0 Referrals: Eleazar Armstrong MD [Physician] -
[2020-07-28 03:38] VITALS: BP 185/106; PULSE 94; RESP 16; TEMP 37.1; O2SAT 97; BMI 34.4
[2020-07-28] MEDS: LIDOCAINE 1% W/EPI 1 ML SUBCUT (04:10)
== END 2020-07-28 03:52 | disposition home or self-care (01) ==
PROVIDERS: Emergency Provider Emergency Medicine; PCP Internal Medicine
DX: K08.89 Other specified disorders of teeth and supporting structures (principal)
CPT/HCPCS: 64450; 99281; 99283

== ENCOUNTER → 2020-08-21 16:15 | Outpatient (CLI) | payer MEDICARE, SELFPAY ==
[2019-09-30 20:07] VITALS: BMI 34.4
[2020-08-21 18:57] LABS: Alanine Aminotransferase 22 IU/L (<50); Albumin 4.3 g/dL (3.5-5.0); Albumin Globulin Ratio 1.6 (1.0-2.8); Alkaline Phosphatase 75 U/L (38-126); Aspartate Aminotransferase 25 IU/L (17-59); BUN Creatinine Ratio 20.7 (6-22); Bilirubin Total 0.2 mg/dL (0.2-1.3); Blood Urea Nitrogen 23 mg/dL (9-20); Calcium 9.5 mg/dL (8.4-10.2); Carbon Dioxide 28 mmol/L (22-32); Chloride 102 mmol/L (98-107); Estimated Glomerular Filt Rate > 60.0 mL/min (>60); Globulin 2.7 g/dL (1.7-4.1); Glucose 106 mg/dL (80-110); HEMOLYSIS < 15 (0-50); Potassium 4.2 mmol/L (3.4-5.1); Sodium 140 mmol/L (137-145)
[2020-08-21 19:05] LABS: Lithium 0.4 mmol/L (0.6-1.2)
== END ==
PROVIDERS: PCP Internal Medicine; Referring Provider Psychiatry & Neurology Psychiatry; Visit Provider Psychiatry & Neurology Psychiatry
DX: F33.3 Major depressive disorder, recurrent, severe with psychotic symptoms (principal)
CPT/HCPCS: 36415; 80053; 80178

== ENCOUNTER 2020-09-23 21:35 | Emergency (ER) | payer MEDICARE, SELFPAY ==
[2019-09-30 20:07] VITALS: BMI 34.4
[2020-09-23 21:49] VITALS: BP 130/74; PULSE 79; RESP 18; TEMP 36.6; O2SAT 97; BMI 37.5
[2020-09-23 22:27] LABS: COVID19 -Nasal RAPID Negative (Negative)
[2020-09-23 23:12] VITALS: PULSE 70; O2SAT 94
[2020-09-23 23:30] VITALS: BP 138/74; PULSE 71; O2SAT 95
[2020-09-24] VITALS (11 sets, daily range): BP systolic 107–156; BP diastolic 61–109; PULSE 42–86; RESP 20; O2SAT 90–96
--- NOTE | 2020-09-24 02:09 | ED_ITS ---
HPI - Asthma General Chief Complaint: Asthma Stated Complaint: difficulty breathing Time Seen by Provider: 09/24/20 01:51 Source: patient Mode of arrival: Ambulatory Limitations: no limitations History of Present Illness HPI Narrative: The patient has asthma. He developed spastic coughing earlier today. He has been having increased cough and wheezing in recent days. He has no fever, no URI symptoms, no postnasal drainage. He is compliant with medications for his asthma. His wheezing that is experiencing early has now resolved. He also has migraines. He complains of onset of migraine while here in the ER. He normally takes Imitrex, but that is at home. He complains of frontal headache, photophobia, but no nausea vomiting. The current symptoms are consistent with his migraine headache. Related Data Home Medications Medication Instructions Recorded Confirmed Breo Ellipta 1 puff INH DAILY #0 12/03/16 09/16/20 Combivent Respimat See Rx Instructions .ROUTE 04/15/17 09/16/20 .COMPLEX #0 MDD 6 albuterol sulfate 1.25 mg INH Q4HP PRN #0 05/24/17 09/16/20 Vitamin B-12 1 tab PO DAILY 02/21/18 09/16/20 desonide 1 applic TOPICAL PRN PRN 02/21/18 09/16/20 calcium citrate 500 mg PO BID tab 03/28/18 09/16/20 apixaban 5 mg tablet 5 mg PO BID 05/30/18 09/16/20 clobetasol 0.05 % topical ointment 1 applic TOPICAL SUSA PRN 04/18/19 09/16/20 multivitamin 1 tab PO TID tab 04/18/19 09/16/20 armodafinil 250 mg tablet 125 mg PO ONCE PRN tab 02/06/20 09/16/20 cholecalciferol (vitamin D3) 10 10 mcg PO DAILY 02/06/20 09/16/20 mcg (400 unit) capsule sumatriptan succinate 100 mg tablet 100 mg PO BID PRN tab 02/06/20 09/16/20 liothyronine 25 mcg tablet 5 mcg PO DAILY tab 09/16/20 09/16/20 Previous Rx's Medication Instructions Recorded Disabled Parking #1 each 08/02/19 ketoconazole 2 % shampoo See Rx Instructions .ROUTE 08/21/20 .COMPLEX #360 milliliter levothyroxine 100 mcg tablet 100 mcg PO QAM #90 tab 04/16/20 montelukast 10 mg tablet 10 mg PO BEDTIME #90 tab 04/16/20 tamsulosin 0.4 mg capsule 0.4 mg PO DAILY #90 cap 04/16/20 bupropion HCl 300 mg 24 hr tablet, See Rx Instructions .ROUTE 04/17/20 extended release .COMPLEX #90 tab sumatriptan 20 mg/actuation nasal 20 mg NASAL ONCE #6 ea 05/23/20 spray prochlorperazine maleate 10 mg 10 mg PO Q8H PRN #90 tab 05/26/20 tablet metoprolol tartrate 25 mg tablet 12.5 mg PO BID #90 tab 06/02/20 clonazepam 2 mg tablet 2 mg PO TID #90 tab 09/16/20 duloxetine 30 mg capsule,delayed See Rx Instructions .ROUTE 09/16/20 release .COMPLEX #10 cap lithium carbonate 300 mg 600 mg PO BEDTIME #180 tab 09/16/20 tablet,extended release zolpidem 10 mg tablet 10 mg PO BEDTIME #30 tab 09/16/20 Allergies Allergy/AdvReac Type Severity Reaction Status Date / Time amoxicillin Allergy Severe Face, Verified 09/16/20 08:54 chest, upper back - beat red. Welsabine. doxycycline [DOXYCYCLINE] Allergy Mild ITCHING Verified 09/16/20 08:54 ketorolac [KETOROLAC] Allergy Unknown Verified 09/16/20 08:54 NSAIDS (Non-Steroidal AdvReac Unknown TO AVOID Verified 09/16/20 08:54 Anti-Inflamma R/T [NSAIDS (NON-STEROIDAL GASTRIC ANTI-INFLAMMA] BYPASS controlled substance AdvReac Uncoded 09/16/20 08:54 agreement Review of Systems Constitutional Constitutional: Denies chills, Denies fatigue, Denies fever(s) and Reports headache(s) Eyes Eyes: Denies change in vision ENT Ears, Nose, Mouth, and Throat: Denies vertigo, Denies dizziness, Reports headache(s), Denies sinus pressure and Denies sore throat Cardiovascular Cardiovascular: Denies chest pain, Denies syncope, Denies rapid heart rate and Denies dyspnea Respiratory Respiratory: Reports cough, Denies dyspnea and Reports wheezing Gastrointestinal Gastrointestinal: Denies abdominal pain, Denies nausea and Denies vomiting Musculoskeletal Musculoskeletal: Denies arthralgias and Denies back pain Integumentary/Breasts Skin/Breast: Denies rash Neurologic Neurologic: Denies confusion, Denies vertigo, Denies dizziness, Denies syncope and Reports headache(s) Psychiatric Psychiatric: Denies anxiety and Denies confusion Endocrine Endocrine: Denies fatigue Allergic/Immunologic Allergic/Immunologic: Reports wheezing Patient History Medical History (Updated 09/24/20 @ 04:28 by Mario Gaxiola MD) Anxiety Asthma Chronic left shoulder pain (01/20/16) Chronic obstructive pulmonary disease (08/05/17) Chronic pain syndrome (11/08/16) Cognitive disorder (04/24/14) Deficiency of other specified B group vitamins Essential tremor Facet arthropathy, lumbar H/O migraine H/O renal calculi History of stroke Hypersomnia Hypothyroidism Insomnia Iron deficiency Major depressive disorder, recurrent episode, severe Mixed hyperlipidemia Narcotic dependence (09/01/16) Obesity with body mass index (BMI) of 30.0 to 39.9 (12/06/14) Paroxysmal atrial fibrillation Patent foramen ovale Pneumonia Post traumatic stress disorder (PTSD) Psoriasis S/P ECT (electroconvulsive therapy) Sarcoidosis Sleep apnea Vitamin B12 deficiency (02/19/11) Surgical History History of gastric bypass (~2003) History of Cris-en-Y gastric bypass (~2003) History of total shoulder replacement (~12/2015) S/P laparoscopic cholecystectomy (10/18/18) S/P lumbar laminectomy (~10/2017) Family History Father No problems noted. Mother No problems noted. 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 This has caused him significant levels of anxiety and frustration as he attempts to navigate this problem with his family. Smoking Status: Former smoker alcohol intake frequency: a few times a month Substance Use Type: does not use Exam Initial Vital Signs Initial Vital Signs: Vital Signs Temperature 97.8 F 09/23/20 21:49 Pulse Rate 79 09/23/20 21:49 Respiratory Rate 18 09/23/20 21:49 Blood Pressure 130/74 09/23/20 21:49 Pulse Oximetry 97 09/23/20 21:49 Const General: cooperative, healthy appearing, comfortable, well developed, well groomed and No acute distress HENMT Head: normocephalic, atraumatic and other (No palpable sinus tenderness.) Mouth: oral mucosae normal Eyes General: appearance normal, both eyes and all related structures Eyelids: eyelids normal Conjunctivae: conjunctivae normal Sclera: sclerae normal Pupils: PERRL EOM: EOM intact bilaterally Neck Neck: normal visual inspection, trachea midline, No lymphadenopathy and No JVD Lymphatic: No lymphedema Resp Auscultation: clear to auscultation bilaterally Cardio Rate: regular rate Rhythm: regular rhythm Heart Sounds: S1 normal, S2 normal, no click, no gallops, no murmurs and no rubs Pulses: normal peripheral pulses GI Palpation: soft and No tender Percussion: normal to percussion Auscultation: normal bowel sounds Back/Spine/Pelvis Back: normal to inspection Skin General: no rashes or lesions noted Neuro General: patient alert, patient oriented x3, gait normal and no focal motor deficits Speech: speech normal Extrem General: full ROM, no clubbing, cyanosis or edema, no pedal edema and no calf tenderness Course Course Course Narrative: The patient was given DuoNeb, lungs are clear to auscultation at the time of discharge. O2 sats are normal. He was given IV Reglan and Benadryl for the headache. He is quite somnolent after the medications, apparently has improved. Orders Ordered: ED Orders 09/23/20 21:55 COVID19 -Nasal swab/Pre-Proc Stat Discontinued Medications Albuterol/Ipratropium (Albuterol/Ipratropium 3 Ml Ampul) 3 ml INH NOW ONE Stop: 09/24/20 02:31 Last Admin: 09/24/20 02:46 Dose: 3 ml Documented by: SERA Diphenhydramine HCl (Diphenhydramine 50 Mg/Ml Vial) 25 mg IV NOW ONE Stop: 09/24/20 02:13 Last Admin: 09/24/20 02:46 Dose: 25 mg Documented by: AMARI Sodium Chloride (Normal Saline 0.9%) 1,000 mls @ 1,000 mls/hr IV BOLUS ONE Stop: 09/24/20 03:11 Last Infusion: 09/24/20 03:40 Dose: 0 mls/hr Documented by: Admin: 09/24/20 02:47 Dose: 1,000 mls/hr Documented by: AMARI Metoclopramide HCl (Metoclopramide 10 Mg/2 Ml Inj) 10 mg IV NOW ONE Stop: 09/24/20 02:13 Last Admin: 09/24/20 02:46 Dose: 10 mg Documented by: AMARI Vital Signs Vital signs: Vital Signs - 8 hr 09/23/20 21:49 09/23/20 23:12 09/23/20 23:30 Temperature 97.8 F Pulse Rate 79 70 71 Respiratory Rate 18 Blood Pressure 130/74 138/74 Pulse Oximetry 97 94 95 09/24/20 00:00 09/24/20 00:30 09/24/20 01:00 Temperature Pulse Rate 70 70 69 Respiratory Rate Blood Pressure 146/91 H Pulse Oximetry 94 93 93 09/24/20 01:01 09/24/20 01:30 09/24/20 01:31 Temperature Pulse Rate 69 83 74 Respiratory Rate Blood Pressure 148/94 H 156/109 H Pulse Oximetry 93 94 95 09/24/20 02:00 09/24/20 02:03 09/24/20 02:30 Temperature Pulse Rate 42 L 81 86 Respiratory Rate Blood Pressure 107/61 Pulse Oximetry 90 L 93 96 09/24/20 02:46 09/24/20 04:39 Temperature Pulse Rate 69 67 Respiratory Rate 20 Blood Pressure 118/71 Pulse Oximetry 94 94 MDM - Asthma Lab Data Labs: Lab Results 06/15/21 Range/Units 21:55 SARS-CoV-2 (PCR) Negative (Negative) Discharge Plan Departure Patient Disposition: Home Clinical Impression: Migraine Qualifiers: Migraine type: without aura Status migrainosus presence: without status migrainosus Intractability: not intractable Qualified Code(s): G43.009 - Migraine without aura, not intractable, without status migrainosus Asthma with acute exacerbation Qualifiers: Asthma severity: mild Asthma persistence: unspecified Qualified Code(s): J45.901 - Unspecified asthma with (acute) exacerbation Instructions: DI for Asthma -- Adult Activity Restrictions/Additional Instructions: Use your medications as prescribed. Prior to discharge her lungs are clear. Your quite somnolent, like not remember me in your room. Your headache seems to be improve also. I recommend arrange follow-up with your regular doctor in the near future. Return here as necessary. Prescriptions: No Action sumatriptan succinate 100 mg tablet 100 mg PO BID PRN (Reason: Headache) RF: 0 cholecalciferol (vitamin D3) 10 mcg (400 unit) capsule 10 mcg PO DAILY RF: 0 liothyronine 25 mcg tablet 5 mcg PO DAILY RF: 0 Hold Instructions: Overtreatment lithium carbonate 300 mg tablet extended release 600 mg PO BEDTIME Qty: 180 RF: 3 duloxetine 30 mg capsule,delayed release(DR/EC) See Rx Instructions .ROUTE .COMPLEX Qty: 10 RF: 0 clonazepam 2 mg tablet 2 mg PO TID Qty: 90 RF: 0 zolpidem 10 mg tablet 10 mg PO BEDTIME Qty: 30 RF: 0 armodafinil [Nuvigil] 250 mg tablet 125 mg PO ONCE PRN (Reason: as directed) RF: 0 Breo Ellipta 200 MCG/25 MCG blister with device 1 puff INH DAILY Qty: 0 RF: 0 Combivent Respimat 4 GM mist See Rx Instructions .ROUTE .COMPLEX MDD 6 Qty: 0 RF: 0 albuterol sulfate 1.25 MG/3 ML solution for nebulization 1.25 mg INH Q4HP PRN (Reason: Shortness Of Breath) Qty: 0 RF: 0 levothyroxine 100 mcg tablet 100 mcg PO QAM Qty: 90 RF: 3 tamsulosin 0.4 mg capsule 0.4 mg PO DAILY Qty: 90 RF: 3 montelukast [Singulair] 10 mg tablet 10 mg PO BEDTIME Qty: 90 RF: 3 bupropion HCl 300 mg tablet extended release 24 hr See Rx Instructions .ROUTE .COMPLEX Qty: 90 RF: 3 sumatriptan 20 mg/actuation spray,non-aerosol 20 mg NASAL ONCE Qty: 6 RF: 3 prochlorperazine maleate 10 mg tablet 10 mg PO Q8H PRN (Reason: nausea and vomiting) Qty: 90 RF: 1 metoprolol tartrate 25 mg tablet 12.5 mg PO BID Qty: 90 RF: 3 ketoconazole 2 % shampoo See Rx Instructions .ROUTE .COMPLEX Qty: 360 RF: 5 calcium citrate 250 mg calcium tablet 500 mg PO BID RF: 0 (DME) Disabled Parking Qty: 1 RF: 0 desonide 0.05 % cream 1 applic Topical PRN PRN (Reason: Inflammation) RF: 0 Vitamin B-12 1 tab PO DAILY RF: 0 clobetasol 0.05 % ointment 1 applic Topical SUSA PRN (Reason: Rash) RF: 0 multivitamin Tablet 1 tab PO TID RF: 0 Eliquis 5 mg tablet 5 mg PO BID RF: 0 Referrals: Joanie Miller MD [Primary Care Provider] -
[2020-09-24] MEDS: ALBUTEROL/IPRATROPIUM 3 ML AMPUL INH (02:46)
[2020-09-24] MEDS: METOCLOPRAMIDE 10 MG/2 ML INJ IV (02:46)
[2020-09-24] MEDS: diphenhydrAMINE 50 MG/ML VIAL 25 MG IV (02:46)
[2020-09-24] MEDS: SODIUM CHLORIDE 0.9% 1,000 ML 1000 ML IV (02:47)
== END 2020-09-24 04:44 | disposition home or self-care (01) ==
PROVIDERS: Emergency Provider Emergency Medicine; PCP Internal Medicine
DX: G43.009 Migraine without aura, not intractable, without status migrainosus (principal); J45.901 Unspecified asthma with (acute) exacerbation
CPT/HCPCS: 87635; 94640; 96361; 96374; 96375; 99284; C9803; J1200; J1642; J2765

== ENCOUNTER 2020-10-01 22:17 | Emergency (ER) | payer MEDICARE, SELFPAY ==
[2019-09-30 20:07] VITALS: BMI 34.4
[2020-10-01 22:23] VITALS: BP 120/60; PULSE 80; RESP 24; TEMP 36.6; O2SAT 98; BMI 37.5
--- NOTE | 2020-10-01 22:50 | PC.NURSE ---
He made vague statement about thinking he might want to not wake up in the past but denied wanting to end his life tonight or harm himself of harm anyone else.He also stated he took #2 benadryl tonight.He is alert and lethargic,speech clear and has a steady gait.
--- NOTE | 2020-10-01 22:54 | ED_ITS ---
HPI - Overdose General Chief Complaint: Toxicology Problem Stated Complaint: states drug overdose, difficulty breathing Time Seen by Provider: 10/01/20 22:50 Source: patient Mode of arrival: Ambulatory Limitations: no limitations History of Present Illness HPI Narrative: 65-year-old gentleman with a history of bipolar type 2 depression, severe anxiety, insomnia, chronic migraine, BPH, asthma, history of stroke and paroxysmal atrial fibrillation currently on apixaban with a history of Cris-en-Y bypass presents concerned with overdose. He has been on large doses of benzodiazepines for almost 15 years, 6 mg of clonazepam and 3 mg of Xanax daily. About a month ago there was a pharmacy mixup and he got to 90 day supplies of clonazepam. He was having some sort of acute situational disturbance regarding an old girlfriend and experiencing increasing anxiety. He does note that his psychiatrist, Dr. casas, has been trying to wean him very gradually off of his benzodiazepines and he has not been tolerating this. With the extra dose of medications available he has been taking up to 20 mg of Xanax a day for the last 2-3 weeks. Today he apparently also took 50 mg of Benadryl and comes in because he is concerned that he may have overdosed. He is sleepy but able to converse at in a somewhat tangential fashion. He is concerned that he is addicted to benzodiazepines and is wondering if inpatient treatment might be required to help with his worsening depression and deal with his addiction simultaneously. He notes that he is ?not coping with life well? but denies specific chest pain, worsening wheezing, palpitations, fever, cough, abdominal pain. He does have chronic back pain and chronic migraines that have not changed. No recent vomiting or diarrhea. Related Data Home Medications Medication Instructions Recorded Confirmed Breo Ellipta 1 puff INH DAILY #0 12/03/16 09/16/20 Combivent Respimat See Rx Instructions .ROUTE 04/15/17 09/16/20 .COMPLEX #0 MDD 6 albuterol sulfate 1.25 mg INH Q4HP PRN #0 05/24/17 09/16/20 Vitamin B-12 1 tab PO DAILY 02/21/18 09/16/20 desonide 1 applic TOPICAL PRN PRN 02/21/18 09/16/20 calcium citrate 500 mg PO BID tab 03/28/18 09/16/20 apixaban 5 mg tablet 5 mg PO BID 05/30/18 09/16/20 clobetasol 0.05 % topical ointment 1 applic TOPICAL SUSA PRN 04/18/19 09/16/20 multivitamin 1 tab PO TID tab 04/18/19 09/16/20 armodafinil 250 mg tablet 125 mg PO ONCE PRN tab 02/06/20 09/16/20 cholecalciferol (vitamin D3) 10 10 mcg PO DAILY 02/06/20 09/16/20 mcg (400 unit) capsule sumatriptan succinate 100 mg tablet 100 mg PO BID PRN tab 02/06/20 09/16/20 liothyronine 25 mcg tablet 5 mcg PO DAILY tab 09/16/20 09/16/20 Previous Rx's Medication Instructions Recorded Disabled Parking #1 each 08/02/19 ketoconazole 2 % shampoo See Rx Instructions .ROUTE 11/30/19 .COMPLEX #360 milliliter levothyroxine 100 mcg tablet 100 mcg PO QAM #90 tab 04/16/20 montelukast 10 mg tablet 10 mg PO BEDTIME #90 tab 04/16/20 tamsulosin 0.4 mg capsule 0.4 mg PO DAILY #90 cap 04/16/20 bupropion HCl 300 mg 24 hr tablet, See Rx Instructions .ROUTE 04/17/20 extended release .COMPLEX #90 tab sumatriptan 20 mg/actuation nasal 20 mg NASAL ONCE #6 ea 05/23/20 spray prochlorperazine maleate 10 mg 10 mg PO Q8H PRN #90 tab 05/26/20 tablet metoprolol tartrate 25 mg tablet 12.5 mg PO BID #90 tab 06/02/20 clonazepam 2 mg tablet 2 mg PO TID #90 tab 09/16/20 duloxetine 30 mg capsule,delayed See Rx Instructions .ROUTE 09/16/20 release .COMPLEX #10 cap lithium carbonate 300 mg 600 mg PO BEDTIME #180 tab 09/16/20 tablet,extended release zolpidem 10 mg tablet 10 mg PO BEDTIME #30 tab 09/16/20 Allergies Allergy/AdvReac Type Severity Reaction Status Date / Time amoxicillin Allergy Severe Face, Verified 09/16/20 08:54 chest, upper back - beat red. Welts. doxycycline [DOXYCYCLINE] Allergy Mild ITCHING Verified 09/16/20 08:54 ketorolac [KETOROLAC] Allergy Unknown Verified 09/16/20 08:54 NSAIDS (Non-Steroidal AdvReac Unknown TO AVOID Verified 09/16/20 08:54 Anti-Inflamma R/T [NSAIDS (NON-STEROIDAL GASTRIC ANTI-INFLAMMA] BYPASS controlled substance AdvReac Uncoded 09/16/20 08:54 agreement Review of Systems Review of Systems Narrative: Remainder of complete review of systems is otherwise unremarkable except for that included in the HPI. Patient History Medical History Anxiety Asthma Benzodiazepine dependence Chronic left shoulder pain (01/20/16) Chronic obstructive pulmonary disease (08/05/17) Chronic pain syndrome (11/08/16) Cognitive disorder (04/24/14) Deficiency of other specified B group vitamins Essential tremor Facet arthropathy, lumbar H/O migraine H/O renal calculi History of stroke Hypersomnia Hypothyroidism Insomnia Iron deficiency Major depressive disorder, recurrent episode, severe Mixed hyperlipidemia Narcotic dependence (09/01/16) Obesity with body mass index (BMI) of 30.0 to 39.9 (12/06/14) Paroxysmal atrial fibrillation Patent foramen ovale Pneumonia Post traumatic stress disorder (PTSD) Psoriasis S/P ECT (electroconvulsive therapy) Sarcoidosis Sleep apnea Vitamin B12 deficiency (02/19/11) Surgical History History of gastric bypass (~2003) History of Cris-en-Y gastric bypass (~2003) History of total shoulder replacement (~12/2015) S/P laparoscopic cholecystectomy (10/18/18) S/P lumbar laminectomy (~10/2017) Family History Father No problems noted. Mother No problems noted. 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 [employer]/church: Muslim travel history: over 6 months ago and other Smoking Status: Former smoker Tobacco: How many years used: 10 Smokeless tobacco user: other quit status: quit date established second hand exposure: Yes (Childhood) alcohol intake: current substance use type: does not use additional social history: Currently involved in a legal dispute with his son over the management of the patient's stepfather's estate. This has caused him significant levels of anxiety and frustration as he attempts to navigate this problem with his family. Smoking Status: Former smoker alcohol intake frequency: a few times a month Substance Use Type: does not use Exam Narrative Exam Narrative: General: Disheveled, very sleepy but able to continue a tangential and convoluted conversation. Well-nourished well-developed HEENT: Dry mucous membranes, normal sclera with reactive pupils, Neck: No JVD, supple Respiratory: Lungs are clear to auscultation, no wheezing no rales no rhonchi. Full and symmetrical air movement Cardiac: Regular rate and rhythm no murmurs no bruits Abdomen: Soft, nontender, good bowel tones, no flank pain Skin: Warm and well perfused with very dry peeling skin in multiple areas Neurologic: Moving all extremities but cognitively slowed Extremities: No trauma, well perfused Psych: Anxious, sedated, poor focus and poor overall insight Initial Vital Signs Initial Vital Signs: Vital Signs Temperature 98 F 10/01/20 22:23 Pulse Rate 80 10/01/20 22:23 Respiratory Rate 24 10/01/20 22:23 Blood Pressure 120/60 10/01/20 22:23 Pulse Oximetry 98 10/01/20 22:23 Course Orders Ordered: ED Orders 10/01/20 22:58 EKG-12 Lead Stat 10/01/20 23:05 Acetaminophen Stat Complete Blood Count AUTO DIFF Stat Comprehensive Metabolic Panel Stat Salicylate Stat 10/02/20 02:49 Urine Drug Screen, Rapid Stat Sodium Chloride (Normal Saline 0.9%) 1,000 mls @ 150 mls/hr IV CONT ROSI Last Admin: 10/01/20 23:23 Dose: 125 mls/hr Documented by: TALA Vital Signs Vital signs: Vital Signs - 8 hr 10/01/20 22:23 10/02/20 00:39 10/02/20 00:50 Temperature 98 F Pulse Rate 80 64 63 Respiratory Rate 24 17 17 Blood Pressure 120/60 119/74 Pulse Oximetry 98 95 94 10/02/20 01:00 10/02/20 01:30 10/02/20 01:31 Temperature Pulse Rate 64 88 87 Respiratory Rate 16 21 29 H Blood Pressure 120/76 132/101 H Pulse Oximetry 94 100 10/02/20 02:00 10/02/20 02:01 10/02/20 02:30 Temperature Pulse Rate 61 62 71 Respiratory Rate 16 18 22 Blood Pressure 98/56 L Pulse Oximetry 90 L 90 L 89 L 10/02/20 02:31 10/02/20 03:00 10/02/20 03:01 Temperature Pulse Rate 59 L 62 63 Respiratory Rate 21 19 17 Blood Pressure 98/59 L 124/73 Pulse Oximetry 96 94 96 10/02/20 03:30 10/02/20 04:00 10/02/20 04:01 Temperature Pulse Rate 61 55 L 61 Respiratory Rate 15 28 H 31 H Blood Pressure 134/73 156/80 H Pulse Oximetry 97 99 92 10/02/20 04:30 Temperature Pulse Rate 62 Respiratory Rate 16 Blood Pressure 123/68 Pulse Oximetry 86 L MDM - Overdose Medical Records Attestation: I reviewed the patient's medical records. Lab Data Attestation: I reviewed the patient's lab results. Result diagrams: 10/01/20 23:05 10/01/20 23:05 Labs: Lab Results 10/01/20 10/01/20 10/01/20 Range/Units 23:05 23:05 23:05 WBC 9.6 (4.5-11.0) X10^3/uL RBC 4.61 (4.5-5.9) X10^6/uL Hgb 14.2 (13.5-17.5) g/dL Hct 43.4 (41-53) % MCV 94.0 (80-100) fL MCH 30.8 (26-34) PG MCHC 32.8 (30-36) % RDW 14.3 (11.6-14.8) % Plt Count 156 (150-400) X10^3/uL Neut % (Auto) 66.1 (50-75) % Lymph % (Auto) 19.9 L (25-40) % [place] % (Auto) 11.8 (3-14) % Eos % (Auto) 1.2 L (2-4) % Baso % (Auto) 1.0 (0-2) % Neut # (Auto) 6300 (6371-8845) /uL Lymph # (Auto) 1900 (8065-9824) /uL [place] # (Auto) 1100 H (0-900) /uL Eos # (Auto) 100 (0-450) /uL Baso # (Auto) 100 (0-100) /uL Sodium 139 (137-145) mmol/L Potassium 4.0 (3.4-5.1) mmol/L Chloride 106 (98-107) mmol/L Carbon Dioxide 27 (22-32) mmol/L BUN 19 (9-20) mg/dL Creatinine 1.04 (0.66-1.25) mg/dL Estimated GFR > 60.0 (>60) mL/min BUN/Creatinine Ratio 18.3 (6-22) Glucose 74 L (80-110) mg/dL Calcium 9.1 (8.4-10.2) mg/dL Total Bilirubin 0.4 (0.2-1.3) mg/dL AST 32 (17-59) IU/L ALT 25 (<50) IU/L Alkaline Phosphatase 75 (38-126) U/L Total Protein 6.4 (6.3-8.2) g/dL Albumin 3.8 (3.5-5.0) g/dL Globulin 2.6 (1.7-4.1) g/dL Albumin/Globulin Ratio 1.5 (1.0-2.8) Salicylates < 1.0 (<20) mg/dL U Opiates 300ng/mL cut (Negative) Ur Oxycodone Screen (Negative) Urine Methadone Screen (Negative) Acetaminophen < 10 L (10-30) ug/mL Ur Barbiturates Screen (Negative) U Tricyclic Antidepress (Negative) Ur Phencyclidine Scrn (Negative) Ur Amphetamines Screen (Negative) U Methamphetamines Scrn (Negative) Ur MDMA Scrn (Ecstasy) (Negative) U Benzodiazepines Scrn (Negative) Urine Cocaine Screen (Negative) U Marijuana (THC) Screen (Negative) 10/02/20 Range/Units 01:37 WBC (4.5-11.0) X10^3/uL RBC (4.5-5.9) X10^6/uL Hgb (13.5-17.5) g/dL Hct (41-53) % MCV (80-100) fL MCH (26-34) PG MCHC (30-36) % RDW (11.6-14.8) % Plt Count (150-400) X10^3/uL Neut % (Auto) (50-75) % Lymph % (Auto) (25-40) % [place] % (Auto) (3-14) % Eos % (Auto) (2-4) % Baso % (Auto) (0-2) % Neut # (Auto) (3659-4390) /uL Lymph # (Auto) (4233-8575) /uL [place] # (Auto) (0-900) /uL Eos # (Auto) (0-450) /uL Baso # (Auto) (0-100) /uL Sodium (137-145) mmol/L Potassium (3.4-5.1) mmol/L Chloride (98-107) mmol/L Carbon Dioxide (22-32) mmol/L BUN (9-20) mg/dL Creatinine (0.66-1.25) mg/dL Estimated GFR (>60) mL/min BUN/Creatinine Ratio (6-22) Glucose (80-110) mg/dL Calcium (8.4-10.2) mg/dL Total Bilirubin (0.2-1.3) mg/dL AST (17-59) IU/L ALT (<50) IU/L Alkaline Phosphatase (38-126) U/L Total Protein (6.3-8.2) g/dL Albumin (3.5-5.0) g/dL Globulin (1.7-4.1) g/dL Albumin/Globulin Ratio (1.0-2.8) Salicylates (<20) mg/dL U Opiates 300ng/mL cut Negative (Negative) Ur Oxycodone Screen Positive H (Negative) Urine Methadone Screen Negative (Negative) Acetaminophen (10-30) ug/mL Ur Barbiturates Screen Negative (Negative) U Tricyclic Antidepress Positive H (Negative) Ur Phencyclidine Scrn Negative (Negative) Ur Amphetamines Screen Negative (Negative) U Methamphetamines Scrn Negative (Negative) Ur MDMA Scrn (Ecstasy) Negative (Negative) U Benzodiazepines Scrn Positive H (Negative) Urine Cocaine Screen Negative (Negative) U Marijuana (THC) Screen Negative (Negative) Urine Dip Bedside Urine Glucose Negative Bedside Urine Bilirubin - Negative Bedside Urine Ketone - Negative Urine Specific [place] 1.015 Bedside Urine Occult Blood - Negative Bedside Urine pH 6.0 Bedside Urine Protein - Negative Bedside Urine Urobilinogen - Negative Bedside Urine Nitrite - Negative Bedside Urine Leukocytes - Negative Esterase ECG Data Attestation: I personally reviewed and interpreted this ECG as follows: Interpretation: Sinus rhythm at a rate of 72 Normal intervals, normal axis No acute ischemic changes QT interval 378 milliseconds MDM Narrative Medical decision making narrative: 65-year-old gentleman with complex medical and psychiatric history with medication mistake and excess clonazepam available in the setting of significant daily clonazepam use for years. Now taking up to 20 mg a day for the past 2 weeks and presents concerned that he may have overdosed and requesting help with what he believes may be a benzodiazepine addiction. He clearly does have a significant benzodiazepine addiction and this may be very difficult to find a facility that is willing to help him with his benzodiazepines as well as his significant depression and other medical issues. At this point he needs to be monitored for a number of hours and will presumably be medically clear in early hours of the morning. At that point will need to get social work involved and may be able to enlist the aid of Dr. Casas in figuring out a reasonable plan to help this gentleman 445 patient has called his asking her to bring him his morning dose of clonazepam. Explained to him that additional clonazepam at this point given the 20 mg that he took yesterday would not be appropriate 512am patient would like to leave Against Medical Advice to make sure that he can get home to ?check the stock market? Discharge Plan Departure Patient Disposition: Left Against Medical Advice Clinical Impression: Benzodiazepine abuse, continuous Instructions: DI for Substance Use Disorder Activity Restrictions/Additional Instructions: I am sorry that you have decided to leave against medical advise You are showing significant signs of benzodiazepine addiction as well as dependence. I am concerned that you are going to have significant difficulty once you work through the extra clonazepam that you received I would strongly encourage you to go back to only the 6 mg of clonazepam daily. Please call to schedule an appointment with Dr. Casas as soon as possible You are welcome to come back to the emergency room any time and we will do our best to help Prescriptions: No Action sumatriptan succinate 100 mg tablet 100 mg PO BID PRN (Reason: Headache) RF: 0 cholecalciferol (vitamin D3) 10 mcg (400 unit) capsule 10 mcg PO DAILY RF: 0 liothyronine 25 mcg tablet 5 mcg PO DAILY RF: 0 Hold Instructions: Overtreatment lithium carbonate 300 mg tablet extended release 600 mg PO BEDTIME Qty: 180 RF: 3 duloxetine 30 mg capsule,delayed release(DR/EC) See Rx Instructions .ROUTE .COMPLEX Qty: 10 RF: 0 clonazepam 2 mg tablet 2 mg PO TID Qty: 90 RF: 0 zolpidem 10 mg tablet 10 mg PO BEDTIME Qty: 30 RF: 0 armodafinil [Nuvigil] 250 mg tablet 125 mg PO ONCE PRN (Reason: as directed) RF: 0 Breo Ellipta 200 MCG/25 MCG blister with device 1 puff INH DAILY Qty: 0 RF: 0 Combivent Respimat 4 GM mist See Rx Instructions .ROUTE .COMPLEX MDD 6 Qty: 0 RF: 0 albuterol sulfate 1.25 MG/3 ML solution for nebulization 1.25 mg INH Q4HP PRN (Reason: Shortness Of Breath) Qty: 0 RF: 0 levothyroxine 100 mcg tablet 100 mcg PO QAM Qty: 90 RF: 3 tamsulosin 0.4 mg capsule 0.4 mg PO DAILY Qty: 90 RF: 3 montelukast [Singulair] 10 mg tablet 10 mg PO BEDTIME Qty: 90 RF: 3 bupropion HCl 300 mg tablet extended release 24 hr See Rx Instructions .ROUTE .COMPLEX Qty: 90 RF: 3 sumatriptan 20 mg/actuation spray,non-aerosol 20 mg NASAL ONCE Qty: 6 RF: 3 prochlorperazine maleate 10 mg tablet 10 mg PO Q8H PRN (Reason: nausea and vomiting) Qty: 90 RF: 1 metoprolol tartrate 25 mg tablet 12.5 mg PO BID Qty: 90 RF: 3 ketoconazole 2 % shampoo See Rx Instructions .ROUTE .COMPLEX Qty: 360 RF: 5 calcium citrate 250 mg calcium tablet 500 mg PO BID RF: 0 (DME) Disabled Parking Qty: 1 RF: 0 desonide 0.05 % cream 1 applic Topical PRN PRN (Reason: Inflammation) RF: 0 Vitamin B-12 1 tab PO DAILY RF: 0 clobetasol 0.05 % ointment 1 applic Topical SUSA PRN (Reason: Rash) RF: 0 multivitamin Tablet 1 tab PO TID RF: 0 Eliquis 5 mg tablet 5 mg PO BID RF: 0 Referrals: Joanie Miller MD [Primary Care Provider] - Stand Alone Forms: Against Medical Advice
[2020-10-01 23:23] LABS: Add Manual Diff / Slide Review NO; Basophils Absolute Auto 100 /uL (0-100); Eosinophils Absolute Auto 100 /uL (0-450); Eosinophils Percent Auto 1.2 % (2-4); Hematocrit 43.4 % (41-53); Hemoglobin 14.2 g/dL (13.5-17.5); Lymphocytes Absolute Auto 1900 /uL (1100-4500); Lymphocytes Percent Auto 19.9 % (25-40); Mean Corpuscular HGB Conc 32.8 % (30-36); Mean Corpuscular Hemoglobin 30.8 PG (26-34); Monocytes Absolute Auto 1100 /uL (0-900); Monocytes Percent Auto 11.8 % (3-14); Neutrophils Absolute Auto 6300 /uL (1500-7000); Neutrophils Percent Auto 66.1 % (50-75); Platelet Count 156 X10^3/uL (150-400); Red Blood Cell Count 4.61 X10^6/uL (4.5-5.9); Red Cell Distribution Width 14.3 % (11.6-14.8); White Blood Cell Count 9.6 X10^3/uL (4.5-11.0)
[2020-10-01] MEDS: SODIUM CHLORIDE 0.9% 1,000 ML 125 ML IV (23:23)
[2020-10-01 23:30] LABS: Acetaminophen < 10 ug/mL (10-30); Salicylate < 1.0 mg/dL (<20)
[2020-10-01 23:31] LABS: Alanine Aminotransferase 25 IU/L (<50); Albumin 3.8 g/dL (3.5-5.0); Albumin Globulin Ratio 1.5 (1.0-2.8); Alkaline Phosphatase 75 U/L (38-126); Aspartate Aminotransferase 32 IU/L (17-59); BUN Creatinine Ratio 18.3 (6-22); Bilirubin Total 0.4 mg/dL (0.2-1.3); Blood Urea Nitrogen 19 mg/dL (9-20); Calcium 9.1 mg/dL (8.4-10.2); Carbon Dioxide 27 mmol/L (22-32); Chloride 106 mmol/L (98-107); Estimated Glomerular Filt Rate > 60.0 mL/min (>60); Globulin 2.6 g/dL (1.7-4.1); Glucose 74 mg/dL (80-110); HEMOLYSIS 34 (0-50); Sodium 139 mmol/L (137-145); Total Protein 6.4 g/dL (6.3-8.2)
[2020-10-02] VITALS (16 sets, daily range): BP systolic 98–156; BP diastolic 56–101; PULSE 55–88; RESP 15–31; O2SAT 86–100
[2020-10-02 01:54] LABS: Ur Creatinine 20 (Normal); Ur Specific Gravity 1.015 (Normal); Urine pH 5 (Normal)
[2020-10-02 01:55] LABS: UR Morphine/Opiate cutoff 300 Negative (Negative); Urine Amphetamines Negative (Negative); Urine Barbiturates Negative (Negative); Urine Benzodiazepines Positive (Negative); Urine Cocaine Negative (Negative); Urine MDMA Negative (Negative); Urine Methadone Negative (Negative); Urine Methamphetamines Negative (Negative); Urine Oxycodone Positive (Negative); Urine Phencyclidine Negative (Negative); Urine Tetrahydrocannabinol Negative (Negative); Urine Tricyclic Antidepressant Positive (Negative)
== END 2020-10-02 05:23 | disposition left against medical advice (07) ==
PROVIDERS: Emergency Provider Emergency Medicine; PCP Internal Medicine
DX: F13.10 Sedative, hypnotic or anxiolytic abuse, uncomplicated (principal); F32.9 Major depressive disorder, single episode, unspecified; R06.00 Dyspnea, unspecified; I48.0 Paroxysmal atrial fibrillation; Z87.891 Personal history of nicotine dependence
CPT/HCPCS: 36415; 80053; 80305; 80329; 81003; 85025; 93005; 93010; 99284; G0480

== ENCOUNTER 2020-10-06 23:37 | Emergency (ER) | payer MEDICARE, SELFPAY ==
[2019-09-30 20:07] VITALS: BMI 34.4
[2020-10-06 23:44] VITALS: BP 169/75; PULSE 90; RESP 24; TEMP 36.9; O2SAT 97
--- NOTE | 2020-10-06 23:54 | DI.RAD.S_ITS ---
PROCEDURE: XR CHEST 1V INDICATIONS: shortness of breath TECHNIQUE: One view of the chest was acquired. COMPARISON: [facility], CR, XR CHEST 1 VIEW, 10/06/2020, 11:33. [facility], CR, XR CHEST 1V, 09/30/2019, 13:23. FINDINGS: Surgical changes and devices: There is a left slight Port-A-Cath with the tip projecting to the area of SVC. A left shoulder prosthesis is noted. Lower cervical spine fusion. Lungs and pleura: Slightly prominent pulmonary vascularity but no confluent pulmonary edema. No significant change from the last exam. No pleural effusions or pneumothorax. Mediastinum: Mediastinal contours appear normal. Heart size is normal. Bones and chest wall: No suspicious bony lesions. Overlying soft tissues appear unremarkable. IMPRESSION: No acute cardiopulmonary disease. No significant discrepancy with the retail shift manager radiology preliminary report. Dictated by: Savanna Dominguez M.D. on 10/07/2020 at 9:08 Approved by: Savanna Dominguez M.D. on 10/07/2020 at 9:09
[2020-10-07] MEDS: ALBUTEROL/IPRATROPIUM 3 ML AMPUL INH (00:05)
[2020-10-07 00:09] VITALS: PULSE 72; RESP 20; O2SAT 98
--- NOTE | 2020-10-07 01:06 | ED_ITS ---
HPI - General Adult General Chief complaint: Shortness of Breath/Dyspnea Stated complaint: difficulty breathing, coughing Time Seen by Provider: 10/06/20 23:58 Source: patient Mode of arrival: Ambulatory History of Present Illness HPI narrative: Patient is a 65-year-old male who is here for evaluation of a cough. According to the patient he has had a cough for the past several months. He has been seen in the past for this for by outside facilities. He states that he currently is on azithromycin and also a steroid. He is on anticoagulation. Related Data Home Medications Medication Instructions Recorded Confirmed fluticasone furoate 200 1 puff INH DAILY #0 12/03/16 09/16/20 mcg-vilanterol 25 mcg/dose inhalation powder (Breo Ellipta) ipratropium 20 mcg-albuterol 100 See Rx Instructions .ROUTE 04/15/17 09/16/20 mcg/actuation mist for inhalation .COMPLEX #0 MDD 6 (Combivent Respimat) albuterol sulfate 1.25 mg/3 mL 1.25 mg INH Q4HP PRN #0 05/24/17 09/16/20 solution for nebulization Vitamin B-12 1 tab PO DAILY 02/21/18 09/16/20 desonide 0.05 % topical cream 1 applic TOPICAL PRN PRN 02/21/18 09/16/20 calcium citrate 500 mg PO BID tab 03/28/18 09/16/20 apixaban 5 mg tablet (Eliquis) 5 mg PO BID 05/30/18 09/16/20 clobetasol 0.05 % topical ointment 1 applic TOPICAL SUSA PRN 04/18/19 09/16/20 multivitamin 1 tab PO TID tab 04/18/19 09/16/20 armodafinil 250 mg tablet (Nuvigil) 125 mg PO ONCE PRN tab 02/06/20 09/16/20 cholecalciferol (vitamin D3) 10 10 mcg PO DAILY 02/06/20 09/16/20 mcg (400 unit) capsule sumatriptan succinate 100 mg tablet 100 mg PO BID PRN tab 02/06/20 09/16/20 liothyronine 25 mcg tablet 5 mcg PO DAILY tab 09/16/20 09/16/20 Previous Rx's Medication Instructions Recorded Disabled Parking #1 each 08/02/19 ketoconazole 2 % shampoo See Rx Instructions .ROUTE 11/30/19 .COMPLEX #360 milliliter levothyroxine 100 mcg tablet 100 mcg PO QAM #90 tab 04/16/20 montelukast 10 mg tablet 10 mg PO BEDTIME #90 tab 04/16/20 (Singulair) tamsulosin 0.4 mg capsule 0.4 mg PO DAILY #90 cap 04/16/20 bupropion HCl 300 mg 24 hr tablet, See Rx Instructions .ROUTE 04/17/20 extended release .COMPLEX #90 tab sumatriptan 20 mg/actuation nasal 20 mg NASAL ONCE #6 ea 05/23/20 spray prochlorperazine maleate 10 mg 10 mg PO Q8H PRN #90 tab 05/26/20 tablet metoprolol tartrate 25 mg tablet 12.5 mg PO BID #90 tab 06/02/20 clonazepam 2 mg tablet 2 mg PO TID #90 tab 09/16/20 duloxetine 30 mg capsule,delayed See Rx Instructions .ROUTE 09/16/20 release .COMPLEX #10 cap zolpidem 10 mg tablet 10 mg PO BEDTIME #30 tab 09/16/20 lithium carbonate 300 mg 900 mg PO BEDTIME #270 tab 10/02/20 tablet,extended release Allergies Allergy/AdvReac Type Severity Reaction Status Date / Time amoxicillin Allergy Severe Face, Verified 09/16/20 08:54 chest, upper back - beat red. Welts. doxycycline [DOXYCYCLINE] Allergy Mild ITCHING Verified 09/16/20 08:54 ketorolac [KETOROLAC] Allergy Unknown Verified 09/16/20 08:54 NSAIDS (Non-Steroidal AdvReac Unknown TO AVOID Verified 09/16/20 08:54 Anti-Inflamma R/T [NSAIDS (NON-STEROIDAL GASTRIC ANTI-INFLAMMA] BYPASS controlled substance AdvReac Uncoded 09/16/20 08:54 agreement Review of Systems Constitutional Constitutional: Denies fever(s) Cardiovascular Cardiovascular: Reports chest pain and Reports dyspnea Respiratory Respiratory: Reports cough, Reports dyspnea and Reports wheezing Gastrointestinal Gastrointestinal: Reports system reviewed and no additional complaints, except as documented Genitourinary Genitourinary: Reports system reviewed and no additional complaints, except as documented Musculoskeletal Musculoskeletal: Reports system reviewed and no additional complaints, except as documented Integumentary/Breasts Skin/Breast: Reports system reviewed and no additional complaints, except as documented Neurologic Neurologic: Reports system reviewed and no additional complaints, except as documented Hematologic/Lymphatic On Anticoagulants: Yes Allergic/Immunologic Allergic/Immunologic: Reports wheezing Patient History Medical History Anxiety Asthma Benzodiazepine dependence Chronic left shoulder pain (01/20/16) Chronic obstructive pulmonary disease (08/05/17) Chronic pain syndrome (11/08/16) Cognitive disorder (04/24/14) Deficiency of other specified B group vitamins Essential tremor Facet arthropathy, lumbar H/O migraine H/O renal calculi History of stroke Hypersomnia Hypothyroidism Insomnia Iron deficiency Major depressive disorder, recurrent episode, severe Mixed hyperlipidemia Narcotic dependence (09/01/16) Obesity with body mass index (BMI) of 30.0 to 39.9 (12/06/14) Paroxysmal atrial fibrillation Patent foramen ovale Pneumonia Post traumatic stress disorder (PTSD) Psoriasis S/P ECT (electroconvulsive therapy) Sarcoidosis Sleep apnea Vitamin B12 deficiency (02/19/11) Surgical History History of gastric bypass (~2003) History of Cris-en-Y gastric bypass (~2003) History of total shoulder replacement (~12/2015) S/P laparoscopic cholecystectomy (10/18/18) S/P lumbar laminectomy (~10/2017) Family History Father No problems noted. Mother No problems noted. 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 This has caused him significant levels of anxiety and frustration as he attempts to navigate this problem with his family. Smoking Status: Former smoker alcohol intake frequency: a few times a month Substance Use Type: does not use Exam Initial Vital Signs Initial Vital Signs: Vital Signs Temperature 98.4 F 10/06/20 23:44 Pulse Rate 90 10/06/20 23:44 Respiratory Rate 24 10/06/20 23:44 Blood Pressure 169/75 H 10/06/20 23:44 Pulse Oximetry 97 10/06/20 23:44 Const General: cooperative and healthy appearing HENMT Head: normal to inspection and normocephalic Resp Effort & Inspection: not labored and tachypneic Auscultation: wheezes Cardio Rate: regular rate Rhythm: regular rhythm Skin General: no rashes or lesions noted Neuro General: patient alert, patient awake and patient oriented x3 Extrem General: normal to inspection and capillary refill normal Course Orders Ordered: ED Orders 10/06/20 23:54 XR chest 1V Stat Complete Blood Count AUTO DIFF Stat Comprehensive Metabolic Panel Stat Lactate (Lactic Acid) Stat EKG-12 Lead Stat Measure peak expiratory flow ONCE RT Consult Eval and Treat Now Discontinued Medications Albuterol/Ipratropium (Albuterol/Ipratropium 3 Ml Ampul) 3 ml INH NOW ONE Stop: 10/07/20 00:01 Last Admin: 10/07/20 00:05 Dose: 3 ml Documented by: [email or web address] Albuterol/Ipratropium (Albuterol/Ipratropium 3 Ml Ampul) 3 ml INH NOW ONE Stop: 10/07/20 01:07 Albuterol/Ipratropium (Albuterol/Ipratropium 3 Ml Ampul) 3 ml INH NOW ONE Stop: 10/07/20 01:07 Vital Signs Vital signs: Vital Signs - 8 hr 10/06/20 23:44 10/07/20 00:09 Temperature 98.4 F Pulse Rate 90 72 Respiratory Rate 24 20 Blood Pressure 169/75 H Pulse Oximetry 97 98 Medical Decision Making Imaging Data Chest x-ray: Radiologist's Impression: Mild right perihilar atelectasis ECG Data Interpretation: Sinus rhythm Ventricular rate of 77 Normal axis Normal QRS Normal QTC No ST T wave changes MDM Narrative Medical decision making narrative: Patient did have bilateral wheezing but was not hypoxic. Is currently on steroids and an antibiotic however his chest x-ray shows no signs of pneumonia. Did receive a couple nebulizer treatments here in the ER and had some improvement. Patient refused any lab draws. He would like to be discharged home. He was given return precautions. Expressed understanding and agreement with these. Discharge Plan Departure Patient Disposition: Home Clinical Impression: Wheezing Instructions: DI for Cough -- Adult Activity Restrictions/Additional Instructions: Continue all of your medications as directed. Contact your primary provider for follow-up. Return to the emergency department for any new or worsening symptoms Prescriptions: No Action sumatriptan succinate 100 mg tablet 100 mg PO BID PRN (Reason: Headache) RF: 0 cholecalciferol (vitamin D3) 10 mcg (400 unit) capsule 10 mcg PO DAILY RF: 0 liothyronine 25 mcg tablet 5 mcg PO DAILY RF: 0 Hold Instructions: Overtreatment duloxetine 30 mg capsule,delayed release(DR/EC) See Rx Instructions .ROUTE .COMPLEX Qty: 10 RF: 0 clonazepam 2 mg tablet 2 mg PO TID Qty: 90 RF: 0 zolpidem 10 mg tablet 10 mg PO BEDTIME Qty: 30 RF: 0 armodafinil [Nuvigil] 250 mg tablet 125 mg PO ONCE PRN (Reason: as directed) RF: 0 Breo Ellipta 200 MCG/25 MCG blister with device 1 puff INH DAILY Qty: 0 RF: 0 Combivent Respimat 4 GM mist See Rx Instructions .ROUTE .COMPLEX MDD 6 Qty: 0 RF: 0 albuterol sulfate 1.25 MG/3 ML solution for nebulization 1.25 mg INH Q4HP PRN (Reason: Shortness Of Breath) Qty: 0 RF: 0 levothyroxine 100 mcg tablet 100 mcg PO QAM Qty: 90 RF: 3 tamsulosin 0.4 mg capsule 0.4 mg PO DAILY Qty: 90 RF: 3 montelukast [Singulair] 10 mg tablet 10 mg PO BEDTIME Qty: 90 RF: 3 bupropion HCl 300 mg tablet extended release 24 hr See Rx Instructions .ROUTE .COMPLEX Qty: 90 RF: 3 sumatriptan 20 mg/actuation spray,non-aerosol 20 mg NASAL ONCE Qty: 6 RF: 3 prochlorperazine maleate 10 mg tablet 10 mg PO Q8H PRN (Reason: nausea and vomiting) Qty: 90 RF: 1 metoprolol tartrate 25 mg tablet 12.5 mg PO BID Qty: 90 RF: 3 lithium carbonate 300 mg tablet extended release 900 mg PO BEDTIME Qty: 270 RF: 3 ketoconazole 2 % shampoo See Rx Instructions .ROUTE .COMPLEX Qty: 360 RF: 5 calcium citrate 250 mg calcium tablet 500 mg PO BID RF: 0 (DME) Disabled Parking Qty: 1 RF: 0 desonide 0.05 % cream 1 applic Topical PRN PRN (Reason: Inflammation) RF: 0 Vitamin B-12 1 tab PO DAILY RF: 0 clobetasol 0.05 % ointment 1 applic Topical SUSA PRN (Reason: Rash) RF: 0 multivitamin Tablet 1 tab PO TID RF: 0 Eliquis 5 mg tablet 5 mg PO BID RF: 0 Referrals: Joanie Miller MD [Primary Care Provider] -
[2020-10-07 01:39] VITALS: BP 160/88; PULSE 80; RESP 18; O2SAT 98
== END 2020-10-07 01:39 | disposition home or self-care (01) ==
PROVIDERS: Emergency Provider Emergency Medicine; PCP Internal Medicine
DX: R06.2 Wheezing (principal); R07.9 Chest pain, unspecified
CPT/HCPCS: 71045; 94150; 94640; 99283

== ENCOUNTER 2020-10-08 10:40 | Emergency (ER) | payer MEDICARE, SELFPAY ==
[2019-09-30 20:07] VITALS: BMI 34.4
[2020-10-08] VITALS (13 sets, daily range): BP systolic 113–132; BP diastolic 58–73; PULSE 62–103; RESP 13–32; TEMP 36.9; O2SAT 90–97; BMI 37.5
--- NOTE | 2020-10-08 10:52 | DI.RAD.S_ITS ---
PROCEDURE: XR CHEST 1V INDICATIONS: shortness of breath TECHNIQUE: One view of the chest was acquired. COMPARISON: [facility], , XR CHEST 1V, 10/07/2020, 0:04. FINDINGS: Surgical changes and devices: Patient is status post left shoulder arthroplasty. Left chest wall Port-A-Cath tip is in SVC. Fusion hardware is also seen in visualized lower cervical spine. Lungs and pleura: Lungs are clear. No pleural effusions or pneumothorax. Mediastinum: Mediastinal contours appear normal. Heart size is enlarged. Bones and chest wall: No suspicious bony lesions. Overlying soft tissues appear unremarkable. IMPRESSION: No acute cardiopulmonary pathology. Dictated by: Nicholas Sandoval M.D. on 10/08/2020 at 11:21 Approved by: Nicholas Sandoval M.D. on 10/08/2020 at 11:21
--- NOTE | 2020-10-08 11:11 | ED.SOB ---
HPI - SOB/Dyspnea General Chief Complaint: Upper Respiratory Symptoms Stated Complaint: difficulty breathing/cough Time Seen by Provider: 10/08/20 11:10 History of Present Illness HPI Narrative: This is a 65-year-old male who comes to the emergency department complaint of difficulty breathing cough. Patient states he has known asthma, with a tobacco abuse history, bipolar type 2 depression, severe anxiety, insomnia, chronic migraine, BPH, history of stroke with paroxysmal atrial fibrillation and is on apixaban with a history of Cris-en-Y bypass. Patient has had cough and wheezing recently. Patient states his main concern is the cough. He states it has been consistent and severe sometimes cause and even falls of bed. Patient states he has been using inhaler at home but with minimal improvement. He was seen here on the the day prior. He is currently on azithromycin and has been on a steroid. Patient has been afebrile. He states cross has been contact but worsening. It is not currently productive. He denies any abdominal pain, no nausea or vomiting. His any diarrhea constipation. No urinary symptoms. Patient has an appreciate any new swelling in his extremities. Related Data Home Medications Medication Instructions Recorded Confirmed fluticasone furoate 200 1 puff INH DAILY #0 12/03/16 09/16/20 mcg-vilanterol 25 mcg/dose inhalation powder (Breo Ellipta) ipratropium 20 mcg-albuterol 100 See Rx Instructions .ROUTE 04/15/17 09/16/20 mcg/actuation mist for inhalation .COMPLEX #0 MDD 6 (Combivent Respimat) albuterol sulfate 1.25 mg/3 mL 1.25 mg INH Q4HP PRN #0 05/24/17 09/16/20 solution for nebulization Vitamin B-12 1 tab PO DAILY 02/21/18 09/16/20 desonide 0.05 % topical cream 1 applic TOPICAL PRN PRN 02/21/18 09/16/20 calcium citrate 500 mg PO BID tab 03/28/18 09/16/20 apixaban 5 mg tablet (Eliquis) 5 mg PO BID 05/30/18 09/16/20 clobetasol 0.05 % topical ointment 1 applic TOPICAL SUSA PRN 04/18/19 09/16/20 multivitamin 1 tab PO TID tab 04/18/19 09/16/20 armodafinil 250 mg tablet (Nuvigil) 125 mg PO ONCE PRN tab 02/06/20 09/16/20 cholecalciferol (vitamin D3) 10 10 mcg PO DAILY 02/06/20 09/16/20 mcg (400 unit) capsule sumatriptan succinate 100 mg tablet 100 mg PO BID PRN tab 02/06/20 09/16/20 liothyronine 25 mcg tablet 5 mcg PO DAILY tab 09/16/20 09/16/20 Previous Rx's Medication Instructions Recorded Disabled Parking #1 each 08/02/19 ketoconazole 2 % shampoo See Rx Instructions .ROUTE 11/30/19 .COMPLEX #360 milliliter levothyroxine 100 mcg tablet 100 mcg PO QAM #90 tab 04/16/20 montelukast 10 mg tablet 10 mg PO BEDTIME #90 tab 04/16/20 (Singulair) tamsulosin 0.4 mg capsule 0.4 mg PO DAILY #90 cap 04/16/20 bupropion HCl 300 mg 24 hr tablet, See Rx Instructions .ROUTE 04/17/20 extended release .COMPLEX #90 tab sumatriptan 20 mg/actuation nasal 20 mg NASAL ONCE #6 ea 05/23/20 spray prochlorperazine maleate 10 mg 10 mg PO Q8H PRN #90 tab 05/26/20 tablet metoprolol tartrate 25 mg tablet 12.5 mg PO BID #90 tab 06/02/20 clonazepam 2 mg tablet 2 mg PO TID #90 tab 09/16/20 duloxetine 30 mg capsule,delayed See Rx Instructions .ROUTE 09/16/20 release .COMPLEX #10 cap lithium carbonate 300 mg 900 mg PO BEDTIME #270 tab 10/02/20 tablet,extended release albuterol sulfate 1.25 mg/3 mL 1.25 mg INHALATION Q4-6H PRN #75 ml 10/08/20 solution for nebulization codeine sulfate 15 mg tablet 15 mg PO Q6H PRN #10 tab 10/08/20 loratadine 10 mg tablet (Claritin) 10 mg PO DAILY #10 tab 10/08/20 loratadine 10 mg tablet (Claritin) 10 mg PO DAILY PRN #20 tab 10/08/20 zolpidem 10 mg tablet 10 mg PO BEDTIME #30 tab 10/10/20 Allergies Allergy/AdvReac Type Severity Reaction Status Date / Time amoxicillin Allergy Severe Face, Verified 09/16/20 08:54 chest, upper back - beat red. Welts. doxycycline [DOXYCYCLINE] Allergy Mild ITCHING Verified 09/16/20 08:54 ketorolac [KETOROLAC] Allergy Unknown Verified 09/16/20 08:54 NSAIDS (Non-Steroidal AdvReac Unknown TO AVOID Verified 09/16/20 08:54 Anti-Inflamma R/T [NSAIDS (NON-STEROIDAL GASTRIC ANTI-INFLAMMA] BYPASS controlled substance AdvReac Uncoded 09/16/20 08:54 agreement Review of Systems Review of Systems ROS Unobtainable: All systems reviewed & are unremarkable except as noted in HPI and below Patient History Medical History Anxiety Asthma Benzodiazepine dependence Chronic left shoulder pain (01/20/16) Chronic obstructive pulmonary disease (08/05/17) Chronic pain syndrome (11/08/16) Cognitive disorder (04/24/14) Deficiency of other specified B group vitamins Essential tremor Facet arthropathy, lumbar H/O migraine H/O renal calculi History of stroke Hypersomnia Hypothyroidism Insomnia Iron deficiency Major depressive disorder, recurrent episode, severe Mixed hyperlipidemia Narcotic dependence (09/01/16) Obesity with body mass index (BMI) of 30.0 to 39.9 (12/06/14) Paroxysmal atrial fibrillation Patent foramen ovale Pneumonia Post traumatic stress disorder (PTSD) Psoriasis S/P ECT (electroconvulsive therapy) Sarcoidosis Sleep apnea Vitamin B12 deficiency (02/19/11) Surgical History History of gastric bypass (~2003) History of Cris-en-Y gastric bypass (~2003) History of total shoulder replacement (~12/2015) S/P laparoscopic cholecystectomy (10/18/18) S/P lumbar laminectomy (~10/2017) Family History Father No problems noted. Mother No problems noted. 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 yeimy/alevism: Yazidi travel history: over 6 months ago and other Smoking Status: Former smoker Tobacco: How many years used: 10 Smokeless tobacco user: other quit status: quit date established second hand exposure: Yes (Childhood) alcohol intake: current substance use type: does not use additional social history: Currently involved in a legal dispute with his son over the management of the patient's stepfather's estate. This has caused him significant levels of anxiety and frustration as he attempts to navigate this problem with his family. Smoking Status: Former smoker alcohol intake frequency: a few times a month Substance Use Type: does not use Exam Narrative Exam Narrative: GEN: Chronically ill-appearing male, alert and oriented x 3, patient appears to be in mild distress. HEENT: Atraumatic, pupils are equal round reactive to light, extraocular movements are intact, nares are clear. Throat is clear without any exudates, erythema, tonsillar enlargement or uvular deviation HEART: Regular rate and rhythm without murmur, clicks, rubs. LUNGS:Lungs patient has mild wheeze bilaterally wheezes, no rales, crackles, chest moves symmetrically, a tachypnea. No accessory muscle use. Patient able to speak in full sentences. Patient does have intermittent cough which is nonproductive the department. ABD:bowel sounds normal, soft, non-tender, no guarding, rebound, rigidity, no masses noted, no hepatosplenomegaly :No CVA tenderness MSCL: Non-tender, no muscle atrophy, muscles strength 5/5 upper and lower extremities, full range of motion NEURO:CN 2-12 intact, sensation normal SKIN: No rashes skin changes noted otherwise Initial Vital Signs Initial Vital Signs: Vital Signs Temperature 98.4 F 10/08/20 10:50 Pulse Rate 71 10/08/20 10:50 Respiratory Rate 24 10/08/20 10:50 Blood Pressure 132/73 10/08/20 10:50 Pulse Oximetry 96 10/08/20 10:50 Course Orders Ordered: Discontinued Medications Albuterol/Ipratropium (Albuterol/Ipratropium 3 Ml Ampul) 3 ml INH NOW ONE Stop: 10/08/20 10:55 Last Admin: 10/08/20 11:15 Dose: 3 ml Documented by: TOÑO Albuterol/Ipratropium (Albuterol/Ipratropium 3 Ml Ampul) 3 ml INH NOW ONE Stop: 10/08/20 11:11 Last Admin: 10/08/20 11:38 Dose: Not Given Documented by: GERA Guaifenesin/Codeine Phosphate (Codeine/Guaifenesin Liquid 5ml Udc) 10 ml PO NOW ONE Stop: 10/08/20 11:23 Last Admin: 10/08/20 11:44 Dose: 10 ml Documented by: KASHMIR Methylprednisolone (Methylprednisolone 125 Mg/2 Ml Vial) 125 mg IV NOW ONE Stop: 10/08/20 10:56 Last Admin: 10/08/20 11:44 Dose: 125 mg Documented by: KASHMIR Vital Signs Vital signs: Vital Signs - 8 hr 10/08/20 10:50 10/08/20 10:56 10/08/20 11:00 Temperature 98.4 F Pulse Rate 71 73 70 Respiratory Rate 24 30 H 32 H Blood Pressure 132/73 Pulse Oximetry 96 10/08/20 11:16 10/08/20 11:30 10/08/20 11:37 Temperature Pulse Rate 77 63 62 Respiratory Rate 28 H 23 26 H Blood Pressure 117/62 Pulse Oximetry 95 92 92 10/08/20 12:00 10/08/20 12:01 10/08/20 12:30 Temperature Pulse Rate 103 H 82 67 Respiratory Rate 13 31 H 27 H Blood Pressure 118/58 L 113/59 L Pulse Oximetry 95 94 90 L 10/08/20 13:00 Temperature Pulse Rate 70 Respiratory Rate Blood Pressure 121/69 Pulse Oximetry 95 MDM - SOB/Dyspnea Lab Data Result diagrams: 10/08/20 11:36 10/08/20 11:36 Labs: Lab Results 10/08/20 10/08/20 10/08/20 Range/Units 10:53 11:36 11:36 WBC 13.2 H (4.5-11.0) X10^3/uL RBC 4.59 (4.5-5.9) X10^6/uL Hgb 14.3 (13.5-17.5) g/dL Hct 43.1 (41-53) % MCV 93.9 (80-100) fL MCH 31.1 (26-34) PG MCHC 33.1 (30-36) % RDW 14.6 (11.6-14.8) % Plt Count 184 (150-400) X10^3/uL Neut % (Auto) 85.6 H (50-75) % Lymph % (Auto) 8.4 L (25-40) % Spencer % (Auto) 5.2 (3-14) % Eos % (Auto) 0.3 L (2-4) % Baso % (Auto) 0.5 (0-2) % Neut # (Auto) 32405 H (6365-5350) /uL Lymph # (Auto) 1100 (8179-4178) /uL Spencer # (Auto) 700 (0-900) /uL Eos # (Auto) 0 (0-450) /uL Baso # (Auto) 100 (0-100) /uL PT 12.2 (10.1-12.7) SECONDS INR 1.1 (0.9-1.3) D-Dimer < 200 (<230) ng/mL Sodium (137-145) mmol/L Potassium (3.4-5.1) mmol/L Chloride (98-107) mmol/L Carbon Dioxide (22-32) mmol/L BUN (9-20) mg/dL Creatinine (0.66-1.25) mg/dL Estimated GFR (>60) mL/min BUN/Creatinine Ratio (6-22) Glucose (80-110) mg/dL Lactate (0.7-2.1) mmol/L Calcium (8.4-10.2) mg/dL Total Bilirubin (0.2-1.3) mg/dL AST (17-59) IU/L ALT (<50) IU/L Alkaline Phosphatase (38-126) U/L Total Creatine Kinase (55-170) U/L CK-MB (CK-2) CK-MB (CK-2) Rel Index Troponin I (0.01-0.034) ng/mL NT-Pro-B Natriuret Pep (<125) pg/mL Total Protein (6.3-8.2) g/dL Albumin (3.5-5.0) g/dL Globulin (1.7-4.1) g/dL Albumin/Globulin Ratio (1.0-2.8) Everett (0.6-1.2) mmol/L SARS-CoV-2 (PCR) Negative (Negative) 10/08/20 10/08/20 10/08/20 Range/Units 11:36 11:36 11:36 WBC (4.5-11.0) X10^3/uL RBC (4.5-5.9) X10^6/uL Hgb (13.5-17.5) g/dL Hct (41-53) % MCV (80-100) fL MCH (26-34) PG MCHC (30-36) % RDW (11.6-14.8) % Plt Count (150-400) X10^3/uL Neut % (Auto) (50-75) % Lymph % (Auto) (25-40) % Spencer % (Auto) (3-14) % Eos % (Auto) (2-4) % Baso % (Auto) (0-2) % Neut # (Auto) (4758-6420) /uL Lymph # (Auto) (6007-9780) /uL Spencer # (Auto) (0-900) /uL Eos # (Auto) (0-450) /uL Baso # (Auto) (0-100) /uL PT (10.1-12.7) SECONDS INR (0.9-1.3) D-Dimer (<230) ng/mL Sodium 140 (137-145) mmol/L Potassium 4.2 (3.4-5.1) mmol/L Chloride 107 (98-107) mmol/L Carbon Dioxide 29 (22-32) mmol/L BUN 15 (9-20) mg/dL Creatinine 1.16 (0.66-1.25) mg/dL Estimated GFR > 60.0 (>60) mL/min BUN/Creatinine Ratio 12.9 (6-22) Glucose 91 (80-110) mg/dL Lactate 1.7 (0.7-2.1) mmol/L Calcium 9.4 (8.4-10.2) mg/dL Total Bilirubin 0.3 (0.2-1.3) mg/dL AST 24 (17-59) IU/L ALT 25 (<50) IU/L Alkaline Phosphatase 70 (38-126) U/L Total Creatine Kinase 55 (55-170) U/L CK-MB (CK-2) TNP CK-MB (CK-2) Rel Index TNP Troponin I < 0.012 (0.01-0.034) ng/mL NT-Pro-B Natriuret Pep 256 H (<125) pg/mL Total Protein 6.7 (6.3-8.2) g/dL Albumin 4.0 (3.5-5.0) g/dL Globulin 2.7 (1.7-4.1) g/dL Albumin/Globulin Ratio 1.5 (1.0-2.8) Everett 1.0 (0.6-1.2) mmol/L SARS-CoV-2 (PCR) (Negative) Imaging Data Chest x-ray: Radiologist's Impression: [address] [id number] ReportSigned Patient: aMrio Hemphill AMR#: [id number]: 4Acct:[id number]/Sex: 65 / MDate of Service: 10/08/20Loc: EDAccession Number: [id number] Procedure: XR chest 1V Ordering Provider: Lyubov Beavers D.O. PROCEDURE: XR CHEST 1V INDICATIONS: shortness of breath TECHNIQUE: One view of the chest was acquired. [facility]. FINDINGS: Surgical changes and devices: Patient is status post left shoulder arthroplasty. Left chest wall Port-A-Cath tip is in SVC. Fusion hardware is also seen in visualized lower cervical spine. Lungs and pleura: Lungs are clear. No pleural effusions or pneumothorax. Mediastinum: Mediastinal contours appear normal. Heart size is enlarged. Bones and chest wall: No suspicious bony lesions. Overlying soft tissues appear unremarkable. IMPRESSION: No acute cardiopulmonary pathology. Dictated by: Nicholas Sandoval M.D. on 10/08/2020 at 11:21 Approved by: Nicholas Sandoval M.D. on 10/08/2020 at 11:21 ECG Data Interpretation: Sinus rhythm rate of 70 MN 178 QRS 80 QTC [address] No acute ST elevation no depression. Patient has prior EKG from 10/01/2020 which appears similar. Patient does have some artifact but this is likely secondary to patient's recurrent cough. MDM Narrative Medical decision making narrative: This is a 65-year-old male who returns for cough. Patient was seen recently. He is currently on steroids, he his albuterol inhaler but does not have a nebulizer. He finds nebulizer helpful and was given 1 dose of codeine here in the department and his cough improved significantly. Patient does have a mild leukocytosis, this may be secondary to steroids versus infection but patient has been afebrile with no new productive change. Chest x-ray does not show obvious pneumonia, patient clinically does not appear to be in CHF and has a negative troponin. He has known asthma history with tobacco abuse history of as well. He appears clinically stable here in the department, he has not been hypoxic, tachycardic or tachypneic. Patient may concern is that he states he coughed so hard he sometimes falls out of his chair. We discussed that we can do a short course of codeine to see if this is helpful. Patient also spoke with social services assistant and they have reached out to his primary care physician to see if they can help set him up with a nebulizer at home over the next day or so. You will be able to obtain this today but hopefully before the weekend. Patient feels more comfortable with the option to hopefully have a nebulizer at home in the short term. Prescription was sent and patient had return precautions discussed. Discharge Plan Departure Patient Disposition: Home Clinical Impression: Cough, Asthma exacerbation in COPD Instructions: Chronic Obstructive Pulmonary Disease (Alternative Therapy) Activity Restrictions/Additional Instructions: Follow up with your physician for recheck. Our social services assistant is attempting to help set you up with a nebulizer at home and this may take a day or 2. She is in contact with her primary care physician. You may use albuterol nebulized every 4 hours as needed when you have obtained her nebulizer. Continue your steroid as prescribed. It may be helpful to add Claritin daily 10 mg to your current regimen. You may take codeine 1 tablet every 6 hours as needed for cough. This medication can make you sleepy do not drive, perform hazardous activities or make any major decisions while taking it. This medication will make you constipated please take a stool softener once to twice daily until stools are soft and regular. Prescription to [facility] in [place]. Please return for fevers, increasing shortness of breath, persistent vomiting, passing out, black or bloody stools, new swelling in your extremities or other new or concerning symptoms. Prescriptions: New loratadine [Claritin] 10 mg tablet 10 mg PO DAILY Qty: 10 RF: 0 codeine sulfate 15 mg tablet 15 mg PO Q6H PRN (Reason: cough) Qty: 10 RF: 0 albuterol sulfate 1.25 mg/3 mL solution for nebulization 1.25 mg inhalation Q4-6H PRN (Reason: shortness of breath or wheezing) Qty: 75 RF: 0 loratadine [Claritin] 10 mg tablet 10 mg PO DAILY PRN (Reason: allergy symptoms) Qty: 20 RF: 0 No Action sumatriptan succinate 100 mg tablet 100 mg PO BID PRN (Reason: Headache) RF: 0 cholecalciferol (vitamin D3) 10 mcg (400 unit) capsule 10 mcg PO DAILY RF: 0 liothyronine 25 mcg tablet 5 mcg PO DAILY RF: 0 Hold Instructions: Overtreatment duloxetine 30 mg capsule,delayed release(DR/EC) See Rx Instructions .ROUTE .COMPLEX Qty: 10 RF: 0 clonazepam 2 mg tablet 2 mg PO TID Qty: 90 RF: 0 armodafinil [Nuvigil] 250 mg tablet 125 mg PO ONCE PRN (Reason: as directed) RF: 0 Breo Ellipta 200 MCG/25 MCG blister with device 1 puff INH DAILY Qty: 0 RF: 0 Combivent Respimat 4 GM mist See Rx Instructions .ROUTE .COMPLEX MDD 6 Qty: 0 RF: 0 albuterol sulfate 1.25 MG/3 ML solution for nebulization 1.25 mg INH Q4HP PRN (Reason: Shortness Of Breath) Qty: 0 RF: 0 levothyroxine 100 mcg tablet 100 mcg PO QAM Qty: 90 RF: 3 tamsulosin 0.4 mg capsule 0.4 mg PO DAILY Qty: 90 RF: 3 montelukast [Singulair] 10 mg tablet 10 mg PO BEDTIME Qty: 90 RF: 3 bupropion HCl 300 mg tablet extended release 24 hr See Rx Instructions .ROUTE .COMPLEX Qty: 90 RF: 3 sumatriptan 20 mg/actuation spray,non-aerosol 20 mg NASAL ONCE Qty: 6 RF: 3 prochlorperazine maleate 10 mg tablet 10 mg PO Q8H PRN (Reason: nausea and vomiting) Qty: 90 RF: 1 metoprolol tartrate 25 mg tablet 12.5 mg PO BID Qty: 90 RF: 3 lithium carbonate 300 mg tablet extended release 900 mg PO BEDTIME Qty: 270 RF: 3 zolpidem 10 mg tablet 10 mg PO BEDTIME Qty: 30 RF: 0 ketoconazole 2 % shampoo See Rx Instructions .ROUTE .COMPLEX Qty: 360 RF: 5 calcium citrate 250 mg calcium tablet 500 mg PO BID RF: 0 (DME) Disabled Parking Qty: 1 RF: 0 desonide 0.05 % cream 1 applic Topical PRN PRN (Reason: Inflammation) RF: 0 Vitamin B-12 1 tab PO DAILY RF: 0 clobetasol 0.05 % ointment 1 applic Topical SUSA PRN (Reason: Rash) RF: 0 multivitamin Tablet 1 tab PO TID RF: 0 Eliquis 5 mg tablet 5 mg PO BID RF: 0 Referrals: Joanie Miller MD [Primary Care Provider] -
[2020-10-08] MEDS: ALBUTEROL/IPRATROPIUM 3 ML AMPUL INH (11:15)
[2020-10-08 11:37] LABS: COVID19 -Nasal RAPID Negative (Negative)
[2020-10-08] MEDS: methylPREDNISolone 125 MG/2 ML VIAL IV (11:44)
[2020-10-08] MEDS: CODEINE/GUAIFENESIN LIQUID 5ML UDC 10 ML PO (11:44)
[2020-10-08 11:45] LABS: Add Manual Diff / Slide Review NO; Basophils Absolute Auto 100 /uL (0-100); Basophils Percent Auto 0.5 % (0-2); Eosinophils Absolute Auto 0 /uL (0-450); Eosinophils Percent Auto 0.3 % (2-4); Hematocrit 43.1 % (41-53); Hemoglobin 14.3 g/dL (13.5-17.5); Lymphocytes Absolute Auto 1100 /uL (1100-4500); Lymphocytes Percent Auto 8.4 % (25-40); Mean Corpuscular HGB Conc 33.1 % (30-36); Mean Corpuscular Hemoglobin 31.1 PG (26-34); Mean Corpuscular Volume 93.9 fL (80-100); Monocytes Absolute Auto 700 /uL (0-900); Monocytes Percent Auto 5.2 % (3-14); Neutrophils Absolute Auto 11300 /uL (1500-7000); Neutrophils Percent Auto 85.6 % (50-75); Platelet Count 184 X10^3/uL (150-400); Red Blood Cell Count 4.59 X10^6/uL (4.5-5.9); Red Cell Distribution Width 14.6 % (11.6-14.8); White Blood Cell Count 13.2 X10^3/uL (4.5-11.0)
[2020-10-08 11:50] LABS: INR 1.1 (0.9-1.3); Prothrombin Time 12.2 SECONDS (10.1-12.7)
[2020-10-08 11:57] LABS: Alanine Aminotransferase 25 IU/L (<50); Albumin Globulin Ratio 1.5 (1.0-2.8); Alkaline Phosphatase 70 U/L (38-126); Aspartate Aminotransferase 24 IU/L (17-59); BUN Creatinine Ratio 12.9 (6-22); Bilirubin Total 0.3 mg/dL (0.2-1.3); Blood Urea Nitrogen 15 mg/dL (9-20); Calcium 9.4 mg/dL (8.4-10.2); Carbon Dioxide 29 mmol/L (22-32); Chloride 107 mmol/L (98-107); Creatine Kinase 55 U/L (55-170); Estimated Glomerular Filt Rate > 60.0 mL/min (>60); Globulin 2.7 g/dL (1.7-4.1); Glucose 91 mg/dL (80-110); HEMOLYSIS 15 (0-50); Potassium 4.2 mmol/L (3.4-5.1); Sodium 140 mmol/L (137-145); Total Protein 6.7 g/dL (6.3-8.2)
[2020-10-08 11:58] LABS: Lactate (Lactic Acid) 1.7 mmol/L (0.7-2.1)
[2020-10-08 12:06] LABS: D Dimer < 200 ng/mL (<230)
[2020-10-08 12:08] LABS: NT-proBNP (BNP-Adult 18+) 256 pg/mL (<125); Troponin I < 0.012 ng/mL (0.01-0.034)
--- NOTE | 2020-10-08 13:25 | PC.NURSE ---
Pt is resting. No coughing for 30 min
--- NOTE | 2020-10-08 13:40 | CM.SWNOTE ---
LINUX SYSTEM ADMIN Note LINUX SYSTEM ADMIN receives consults and enters room to meet with patient. Patient is 65 y/o male who presents to the ED with concerns of difficulty breathing. Patient has presented to this ED 4 times within the last 2 weeks regarding this concern. Patient is A/Ox4. Patient was able to speak clearly with LINUX SYSTEM ADMIN and LINUX SYSTEM ADMIN did not observe patient coughing, patient reports he was given Codeine at approximately 1200 and it just started working at 1300 shortly after LINUX SYSTEM ADMIN started speaking with patient. Patient states that at night he cannot sleep, reports he cannot breathe due to wheezing and coughing. Patient reports he uses oxygen at home. Patient reports symptoms have been increasingly worse in the last 3 days, patient reports symptoms started about 5 months ago. Patient reports concerns of going home because of patient's reports of I feel like I am going to , I don't feel safe at home. Patient reports coughing so hard he is not able to sleep and he falls out of bed. Patient reports he has a walker and cane at home, patient presents with cane at this ED. Patient denies current SI and reports that he has had SAs in the past but it has been many years. Patient endorses dx of Bipolar and ongoing appts with Psychiatrist Dr. Murray with [facility]. Patient states that Dr. Murray is upset with patient when he took too many clonazapam last week. Patient stetes that he needed to cancel recent appt with Dr. Murray this week due to coughing too much and not being able to talk. Patient states that current medication prescribed by Dr. Murrya appears to be working and he is currently on [place] and he has utilized ETC in the past. 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 Patient's PCP is Dr. Joanie Miller (Ph. # [phone]) with the [facility] in [place] (Internal Family Medicine). Patient sees Pulmonolgoist Dr. Nima Lennon with [facility] (Ph. # [phone]), patient reports he has upcoming appt on 10/14/20. Patient states that codeine is working and he is not coughing, patient states that he thinks a nebulizer would be helpful and he has an inhaler at home. LINUX SYSTEM ADMIN states LINUX SYSTEM ADMIN will review the above with ED provider. Patient gives consent for LINUX SYSTEM ADMIN to contact Dr. Miller and Dr. Lennon. LINUX SYSTEM ADMIN calls physicians and informs them regarding patient's recent ED encounters and current symptoms and both state they will f/u with patient regarding f/u appt and rx for nebulizer. LINUX SYSTEM ADMIN to f/u with patient after this ED visit with any f/u information. Plan: Patient to d/c home when medically clear with rx, f/u with transition manager and PCP, LINUX SYSTEM ADMIN to f/u with patient tomorrow. GLENDY Ortez
== END 2020-10-08 14:11 | disposition home or self-care (01) ==
PROVIDERS: Emergency Provider Emergency Medicine; PCP Internal Medicine
DX: J44.1 Chronic obstructive pulmonary disease with (acute) exacerbation (principal); R05 Cough; Z20.822 Contact with and (suspected) exposure to COVID-19
CPT/HCPCS: 36415; 71045; 80053; 80178; 82550; 83605; 83880; 84484; 85025; 85379; 85610; 87635; 93005; 94640; 96374; 99284; C9803; J2930

== ENCOUNTER 2020-10-10 21:22 | Emergency (ER) | payer MEDICARE, SELFPAY ==
[2019-09-30 20:07] VITALS: BMI 34.4
[2020-10-10 21:30] VITALS: BP 161/95; PULSE 74; RESP 18; TEMP 36.7; O2SAT 97; BMI 37.5
--- NOTE | 2020-10-10 21:35 | DI.RAD.S_ITS ---
PROCEDURE: XR CHEST 2V INDICATIONS: shortness of breath TECHNIQUE: 2 views of the chest were acquired. COMPARISON: [facility], CR, XR CHEST 1V, 10/08/2020, 11:11. FINDINGS: Surgical changes and devices: Left chest wall subclavian Port-A-Cath redemonstrated with the tip projecting over the cavoatrial junction. A left shoulder prosthesis and postsurgical changes in the cervical spine are partially visualized. Lungs and pleura: There is slightly increased interstitial prominence suggestive of mild pulmonary edema. No focal consolidation. No pleural effusions or pneumothorax. Mediastinum: Mediastinal contours are unchanged. Heart size is normal. Bones and chest wall: No suspicious bony abnormalities. Soft tissues appear unremarkable. IMPRESSION: 1. Increased interstitial prominence suggestive of pulmonary edema. Dictated by: Reji Ross M.D. on 10/10/2020 at 22:07 Approved by: Reji Ross M.D. on 10/10/2020 at 22:08
[2020-10-10 21:56] LABS: COVID19 -Nasal RAPID Negative (Negative)
[2020-10-10 23:15] LABS: Add Manual Diff / Slide Review NO; Basophils Absolute Auto 100 /uL (0-100); Basophils Percent Auto 0.6 % (0-2); Eosinophils Absolute Auto 0 /uL (0-450); Eosinophils Percent Auto 0.3 % (2-4); Hematocrit 44.5 % (41-53); Hemoglobin 14.5 g/dL (13.5-17.5); Lymphocytes Absolute Auto 2300 /uL (1100-4500); Mean Corpuscular HGB Conc 32.5 % (30-36); Mean Corpuscular Hemoglobin 30.6 PG (26-34); Mean Corpuscular Volume 94.1 fL (80-100); Monocytes Absolute Auto 900 /uL (0-900); Monocytes Percent Auto 6.9 % (3-14); Neutrophils Absolute Auto 10200 /uL (1500-7000); Neutrophils Percent Auto 75.2 % (50-75); Platelet Count 192 X10^3/uL (150-400); Red Blood Cell Count 4.73 X10^6/uL (4.5-5.9); Red Cell Distribution Width 14.5 % (11.6-14.8); White Blood Cell Count 13.6 X10^3/uL (4.5-11.0)
[2020-10-10 23:20] LABS: INR 1.1 (0.9-1.3); Prothrombin Time 11.8 SECONDS (10.1-12.7)
[2020-10-10 23:27] LABS: Alanine Aminotransferase 32 IU/L (<50); Albumin 3.9 g/dL (3.5-5.0); Albumin Globulin Ratio 1.5 (1.0-2.8); Alkaline Phosphatase 73 U/L (38-126); Aspartate Aminotransferase 28 IU/L (17-59); BUN Creatinine Ratio 18.7 (6-22); Bilirubin Total 0.4 mg/dL (0.2-1.3); Blood Urea Nitrogen 23 mg/dL (9-20); Calcium 9.5 mg/dL (8.4-10.2); Carbon Dioxide 29 mmol/L (22-32); Chloride 107 mmol/L (98-107); Estimated Glomerular Filt Rate 58.9 mL/min (>60); Globulin 2.6 g/dL (1.7-4.1); Glucose 92 mg/dL (80-110); HEMOLYSIS 27 (0-50); Potassium 4.1 mmol/L (3.4-5.1); Sodium 140 mmol/L (137-145); Total Protein 6.5 g/dL (6.3-8.2)
[2020-10-10 23:35] LABS: NT-proBNP (BNP-Adult 18+) 199 pg/mL (<125)
--- NOTE | 2020-10-11 00:21 | ED.SOB ---
HPI - SOB/Dyspnea General Chief Complaint: Shortness of Breath/Dyspnea Stated Complaint: short of breath, exhausted Time Seen by Provider: 10/10/20 22:39 History of Present Illness HPI Narrative: 65-year-old male former smoker with history of COPD states that he is more short of breath than normal. He denies any chest pain nor fever or chills. He states he has been using his inhalers without much relief. He denies dizziness, weakness or lightheadedness. He has no nausea, vomiting or diarrhea. He is more short of breath with exertion and improves with rest. He denies any weight gain or lower extremity swelling. He denies any worsening when lying flat. He denies recent travel, trauma or injury Related Data Home Medications Medication Instructions Recorded Confirmed fluticasone furoate 200 1 puff INH DAILY #0 12/03/16 09/16/20 mcg-vilanterol 25 mcg/dose inhalation powder (Breo Ellipta) ipratropium 20 mcg-albuterol 100 See Rx Instructions .ROUTE 04/15/17 09/16/20 mcg/actuation mist for inhalation .COMPLEX #0 MDD 6 (Combivent Respimat) albuterol sulfate 1.25 mg/3 mL 1.25 mg INH Q4HP PRN #0 05/24/17 09/16/20 solution for nebulization Vitamin B-12 1 tab PO DAILY 02/21/18 09/16/20 desonide 0.05 % topical cream 1 applic TOPICAL PRN PRN 02/21/18 09/16/20 calcium citrate 500 mg PO BID tab 03/28/18 09/16/20 apixaban 5 mg tablet (Eliquis) 5 mg PO BID 05/30/18 09/16/20 clobetasol 0.05 % topical ointment 1 applic TOPICAL SUSA PRN 04/18/19 09/16/20 multivitamin 1 tab PO TID tab 04/18/19 09/16/20 armodafinil 250 mg tablet (Nuvigil) 125 mg PO ONCE PRN tab 02/06/20 09/16/20 cholecalciferol (vitamin D3) 10 10 mcg PO DAILY 02/06/20 09/16/20 mcg (400 unit) capsule sumatriptan succinate 100 mg tablet 100 mg PO BID PRN tab 02/06/20 09/16/20 liothyronine 25 mcg tablet 5 mcg PO DAILY tab 09/16/20 09/16/20 Previous Rx's Medication Instructions Recorded Disabled Parking #1 each 08/02/19 ketoconazole 2 % shampoo See Rx Instructions .ROUTE 11/30/19 .COMPLEX #360 milliliter levothyroxine 100 mcg tablet 100 mcg PO QAM #90 tab 04/16/20 montelukast 10 mg tablet 10 mg PO BEDTIME #90 tab 04/16/20 (Singulair) tamsulosin 0.4 mg capsule 0.4 mg PO DAILY #90 cap 04/16/20 bupropion HCl 300 mg 24 hr tablet, See Rx Instructions .ROUTE 04/17/20 extended release .COMPLEX #90 tab sumatriptan 20 mg/actuation nasal 20 mg NASAL ONCE #6 ea 05/23/20 spray prochlorperazine maleate 10 mg 10 mg PO Q8H PRN #90 tab 05/26/20 tablet metoprolol tartrate 25 mg tablet 12.5 mg PO BID #90 tab 06/02/20 clonazepam 2 mg tablet 2 mg PO TID #90 tab 09/16/20 duloxetine 30 mg capsule,delayed See Rx Instructions .ROUTE 09/16/20 release .COMPLEX #10 cap lithium carbonate 300 mg 900 mg PO BEDTIME #270 tab 10/02/20 tablet,extended release albuterol sulfate 1.25 mg/3 mL 1.25 mg INHALATION Q4-6H PRN #75 ml 10/08/20 solution for nebulization codeine sulfate 15 mg tablet 15 mg PO Q6H PRN #10 tab 10/08/20 loratadine 10 mg tablet (Claritin) 10 mg PO DAILY #10 tab 10/08/20 loratadine 10 mg tablet (Claritin) 10 mg PO DAILY PRN #20 tab 10/08/20 zolpidem 10 mg tablet 10 mg PO BEDTIME #30 tab 10/10/20 furosemide 40 mg tablet (Lasix) 40 mg PO DAILY #4 tab 10/11/20 Allergies Allergy/AdvReac Type Severity Reaction Status Date / Time amoxicillin Allergy Severe Face, Verified 09/16/20 08:54 chest, upper back - beat red. Welts. doxycycline [DOXYCYCLINE] Allergy Mild ITCHING Verified 09/16/20 08:54 ketorolac [KETOROLAC] Allergy Unknown Verified 09/16/20 08:54 NSAIDS (Non-Steroidal AdvReac Unknown TO AVOID Verified 09/16/20 08:54 Anti-Inflamma R/T [NSAIDS (NON-STEROIDAL GASTRIC ANTI-INFLAMMA] BYPASS controlled substance AdvReac Uncoded 09/16/20 08:54 agreement Review of Systems Review of Systems Narrative: GENERAL: Denies chills, fatigue, malaise, fever, sweats. HEENT: Denies sinus pain, ear pain, sore throat, difficulty swallowing, dizziness. RESPIRATORY: See HPI. CARDIOVASCULAR: Denies chest pain, palpitations, orthopnea, edema, GASTROINTESTINAL: Denies nausea, vomiting, abdominal pain, diarrhea, constipation, melena. : Denies dysuria, frequency, incontinence, hematuria, urinary retention. MUSCULOSKELETAL: denies weakness, joint pain, or bony pain SKIN: Denies rash, skin lesions, or other NEUROLOGIC: Denies weakness, headache, numbness, change in speech, confusion, seizures, incoordination. PSYCHIATRIC: No concerning psychosocial issues. 12 point review of systems is negative except for those stated above Patient History Medical History Anxiety Asthma Benzodiazepine dependence Chronic left shoulder pain (01/20/16) Chronic obstructive pulmonary disease (08/05/17) Chronic pain syndrome (11/08/16) Cognitive disorder (04/24/14) Deficiency of other specified B group vitamins Essential tremor Facet arthropathy, lumbar H/O migraine H/O renal calculi History of stroke Hypersomnia Hypothyroidism Insomnia Iron deficiency Major depressive disorder, recurrent episode, severe Mixed hyperlipidemia Narcotic dependence (09/01/16) Obesity with body mass index (BMI) of 30.0 to 39.9 (12/06/14) Paroxysmal atrial fibrillation Patent foramen ovale Pneumonia Post traumatic stress disorder (PTSD) Psoriasis S/P ECT (electroconvulsive therapy) Sarcoidosis Sleep apnea Vitamin B12 deficiency (02/19/11) Surgical History History of gastric bypass (~2003) History of Cris-en-Y gastric bypass (~2003) History of total shoulder replacement (~12/2015) S/P laparoscopic cholecystectomy (10/18/18) S/P lumbar laminectomy (~10/2017) Family History Father No problems noted. Mother No problems noted. 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 yeimy/hindu: [employer] travel history: over 6 months ago and other Smoking Status: Former smoker Tobacco: How many years used: 10 Smokeless tobacco user: other quit status: quit date established second hand exposure: Yes (Childhood) alcohol intake: current substance use type: does not use additional social history: Currently involved in a legal dispute with his son over the management of the patient's stepfather's estate. This has caused him significant levels of anxiety and frustration as he attempts to navigate this problem with his family. Smoking Status: Former smoker alcohol intake frequency: a few times a month Substance Use Type: does not use Exam Narrative Exam Narrative: GENERAL: [65] year old patient appears stated age. Well-developed patient, in mild distress. No significant work of breathing, patient speaks full sentences, no need for supplemental oxygen HEAD: Atraumatic. Normocephalic. EYES: Pupils equal round and reactive. Extraocular motions intact. No scleral icterus. No injection or drainage. ENT: Nose without bleeding, purulent drainage. Throat without erythema, tonsillar hypertrophy or exudate. Airway patent. NECK: Trachea midline. Non tender CARDIOVASCULAR: Regular rate and rhythm without murmurs, gallops, or rubs. RESPIRATORY: Prolonged expiratory phase with decreased breath sounds throughout and faint crackles in bilateral bases GASTROINTESTINAL: Abdomen soft, non-tender, nondistended. EXTREMITIES: No edema or joint tenderness. BACK: Nontender without deformity or crepitance. No flank tenderness. NEURO: AOx3. SKIN: No rash or erythema of visible areas Initial Vital Signs Initial Vital Signs: Vital Signs Temperature 98.1 F 10/10/20 21:30 Pulse Rate 74 10/10/20 21:30 Respiratory Rate 18 10/10/20 21:30 Blood Pressure 161/95 H 10/10/20 21:30 Pulse Oximetry 97 10/10/20 21:30 Course Orders Ordered: Discontinued Medications Heparin Sodium (Porcine) 5,000 (unit/ Sodium Chloride 50 ml) 0 unit IV NOW ONE Stop: 10/11/20 01:38 Last Admin: 10/11/20 01:58 Dose: Not Given Documented by: JONNY Heparin Sodium (Porcine) (Heparin 500 Unit/5 Ml Port [place]ush) 500 unit IV PRN PRN PRN Reason: Flush Vital Signs Vital signs: Vital Signs - 8 hr 10/10/20 21:30 10/11/20 01:22 Temperature 98.1 F Pulse Rate 74 64 Respiratory Rate 18 18 Blood Pressure 161/95 H 143/86 H Pulse Oximetry 97 98 MDM - SOB/Dyspnea Lab Data Result diagrams: 10/10/20 23:05 10/10/20 23:05 Labs: Lab Results 10/10/20 10/10/20 10/10/20 Range/Units 21:37 23:05 23:05 WBC 13.6 H (4.5-11.0) X10^3/uL RBC 4.73 (4.5-5.9) X10^6/uL Hgb 14.5 (13.5-17.5) g/dL Hct 44.5 (41-53) % MCV 94.1 (80-100) fL MCH 30.6 (26-34) PG MCHC 32.5 (30-36) % RDW 14.5 (11.6-14.8) % Plt Count 192 (150-400) X10^3/uL Neut % (Auto) 75.2 H (50-75) % Lymph % (Auto) 17.0 L (25-40) % [place] % (Auto) 6.9 (3-14) % Eos % (Auto) 0.3 L (2-4) % Baso % (Auto) 0.6 (0-2) % Neut # (Auto) 03546 H (3554-6205) /uL Lymph # (Auto) 2300 (3718-4769) /uL [place] # (Auto) 900 (0-900) /uL Eos # (Auto) 0 (0-450) /uL Baso # (Auto) 100 (0-100) /uL PT (10.1-12.7) SECONDS INR (0.9-1.3) Sodium (137-145) mmol/L Potassium (3.4-5.1) mmol/L Chloride (98-107) mmol/L Carbon Dioxide (22-32) mmol/L BUN (9-20) mg/dL Creatinine (0.66-1.25) mg/dL Estimated GFR (>60) mL/min BUN/Creatinine Ratio (6-22) Glucose (80-110) mg/dL Lactate (0.7-2.1) mmol/L Calcium (8.4-10.2) mg/dL Total Bilirubin (0.2-1.3) mg/dL AST (17-59) IU/L ALT (<50) IU/L Alkaline Phosphatase (38-126) U/L NT-Pro-B Natriuret Pep 199 H (<125) pg/mL Total Protein (6.3-8.2) g/dL Albumin (3.5-5.0) g/dL Globulin (1.7-4.1) g/dL Albumin/Globulin Ratio (1.0-2.8) SARS-CoV-2 (PCR) Negative (Negative) 10/10/20 10/10/20 10/10/20 Range/Units 23:05 23:05 23:05 WBC (4.5-11.0) X10^3/uL RBC (4.5-5.9) X10^6/uL Hgb (13.5-17.5) g/dL Hct (41-53) % MCV (80-100) fL MCH (26-34) PG MCHC (30-36) % RDW (11.6-14.8) % Plt Count (150-400) X10^3/uL Neut % (Auto) (50-75) % Lymph % (Auto) (25-40) % [place] % (Auto) (3-14) % Eos % (Auto) (2-4) % Baso % (Auto) (0-2) % Neut # (Auto) (0661-8379) /uL Lymph # (Auto) (7172-4254) /uL [place] # (Auto) (0-900) /uL Eos # (Auto) (0-450) /uL Baso # (Auto) (0-100) /uL PT 11.8 (10.1-12.7) SECONDS INR 1.1 (0.9-1.3) Sodium 140 (137-145) mmol/L Potassium 4.1 (3.4-5.1) mmol/L Chloride 107 (98-107) mmol/L Carbon Dioxide 29 (22-32) mmol/L BUN 23 H (9-20) mg/dL Creatinine 1.23 (0.66-1.25) mg/dL Estimated GFR 58.9 L (>60) mL/min BUN/Creatinine Ratio 18.7 (6-22) Glucose 92 (80-110) mg/dL Lactate 1.0 (0.7-2.1) mmol/L Calcium 9.5 (8.4-10.2) mg/dL Total Bilirubin 0.4 (0.2-1.3) mg/dL AST 28 (17-59) IU/L ALT 32 (<50) IU/L Alkaline Phosphatase 73 (38-126) U/L NT-Pro-B Natriuret Pep (<125) pg/mL Total Protein 6.5 (6.3-8.2) g/dL Albumin 3.9 (3.5-5.0) g/dL Globulin 2.6 (1.7-4.1) g/dL Albumin/Globulin Ratio 1.5 (1.0-2.8) SARS-CoV-2 (PCR) (Negative) Discharge Plan Departure Patient Disposition: Home Clinical Impression: Breath shortness Pulmonary edema Qualifiers: Chronicity: acute Qualified Code(s): J81.0 - Acute pulmonary edema Instructions: DI for Shortness of Breath Activity Restrictions/Additional Instructions: *You have been diagnosed with [acute dyspnea with mild pulmonary edema on chest x-ray] *What to do: *Please continue to take your regular medications as directed. [x ] New medication prescriptions sent to your pharmacy: [facility] ] [ ] New medication written as a paper prescription [ ] No new medications given *Please follow up with your primary care provider in 2-3 days, call for an appointment. Let them know you were seen in the Emergency Department and that we ask that you be seen in follow up. We will electronically transmit a record of today's note if your PCP is in our system *If you do not have a primary care provider please contact the [facility] Resource line at [phone]. They will ask some questions about your medical history and help get you set up with a doctor in the community. *Return to Emergency Department if you should have any new, worsening or concerning symptoms, such as [fever greater than 101 F, shaking chills, worsening pain, persistent vomiting or other bothersome symptoms] Prescriptions: New furosemide [Lasix] 40 mg tablet 40 mg PO DAILY Qty: 4 RF: 0 No Action sumatriptan succinate 100 mg tablet 100 mg PO BID PRN (Reason: Headache) RF: 0 cholecalciferol (vitamin D3) 10 mcg (400 unit) capsule 10 mcg PO DAILY RF: 0 liothyronine 25 mcg tablet 5 mcg PO DAILY RF: 0 Hold Instructions: Overtreatment duloxetine 30 mg capsule,delayed release(DR/EC) See Rx Instructions .ROUTE .COMPLEX Qty: 10 RF: 0 clonazepam 2 mg tablet 2 mg PO TID Qty: 90 RF: 0 armodafinil [Nuvigil] 250 mg tablet 125 mg PO ONCE PRN (Reason: as directed) RF: 0 Breo Ellipta 200 MCG/25 MCG blister with device 1 puff INH DAILY Qty: 0 RF: 0 Combivent Respimat 4 GM mist See Rx Instructions .ROUTE .COMPLEX MDD 6 Qty: 0 RF: 0 albuterol sulfate 1.25 MG/3 ML solution for nebulization 1.25 mg INH Q4HP PRN (Reason: Shortness Of Breath) Qty: 0 RF: 0 levothyroxine 100 mcg tablet 100 mcg PO QAM Qty: 90 RF: 3 tamsulosin 0.4 mg capsule 0.4 mg PO DAILY Qty: 90 RF: 3 montelukast [Singulair] 10 mg tablet 10 mg PO BEDTIME Qty: 90 RF: 3 bupropion HCl 300 mg tablet extended release 24 hr See Rx Instructions .ROUTE .COMPLEX Qty: 90 RF: 3 sumatriptan 20 mg/actuation spray,non-aerosol 20 mg NASAL ONCE Qty: 6 RF: 3 prochlorperazine maleate 10 mg tablet 10 mg PO Q8H PRN (Reason: nausea and vomiting) Qty: 90 RF: 1 metoprolol tartrate 25 mg tablet 12.5 mg PO BID Qty: 90 RF: 3 lithium carbonate 300 mg tablet extended release 900 mg PO BEDTIME Qty: 270 RF: 3 zolpidem 10 mg tablet 10 mg PO BEDTIME Qty: 30 RF: 0 ketoconazole 2 % shampoo See Rx Instructions .ROUTE .COMPLEX Qty: 360 RF: 5 calcium citrate 250 mg calcium tablet 500 mg PO BID RF: 0 (DME) Disabled Parking Qty: 1 RF: 0 loratadine [Claritin] 10 mg tablet 10 mg PO DAILY Qty: 10 RF: 0 codeine sulfate 15 mg tablet 15 mg PO Q6H PRN (Reason: cough) Qty: 10 RF: 0 albuterol sulfate 1.25 mg/3 mL solution for nebulization 1.25 mg inhalation Q4-6H PRN (Reason: shortness of breath or wheezing) Qty: 75 RF: 0 loratadine [Claritin] 10 mg tablet 10 mg PO DAILY PRN (Reason: allergy symptoms) Qty: 20 RF: 0 desonide 0.05 % cream 1 applic Topical PRN PRN (Reason: Inflammation) RF: 0 Vitamin B-12 1 tab PO DAILY RF: 0 clobetasol 0.05 % ointment 1 applic Topical SUSA PRN (Reason: Rash) RF: 0 multivitamin Tablet 1 tab PO TID RF: 0 Eliquis 5 mg tablet 5 mg PO BID RF: 0 Referrals: Joanie Miller MD [Primary Care Provider] -
[2020-10-11 01:22] VITALS: BP 143/86; PULSE 64; RESP 18; O2SAT 98
--- OUTSIDE RECORDS SUMMARY | 2020-10-27 08:21 | XMS_ITS | Referral Summary ---
:1955 Author Organization [facility] Address [address] [place] [id number] Care Team Providers Name Role Phone Garret Miller Primary Care Provider Reason for Referral Consultation (Routine) Status Reason Specialty Diagnoses / Referred By Referred To Procedures Contact Contact Authorized Respiratory Therapy Diagnoses Moderate persistent asthma without complication Sarcoidosis Codi Lennon Resp Procedures Complete PFT with DLCO MD Fifi Therapy [address] [place], [place] [address] [phone] Phone: Fax: Electronically signed by Fifi Lennon MD atMRI/CAT/PET Scan (Routine) Status Reason Specialty Diagnoses / Referred By Referred To Procedures Contact Contact Closed Specialty Services Radiology Diagnoses Sarcoidosis Codi Lennon Ct Required Procedures CT CHEST WITH CONTRAST MD Fifi [address] [place] [phone] Phone: Electronically signed by Fifi Lennon MD atDiagnostic Lab (Routine) Status Reason Specialty Diagnoses / Referred By Referred To Procedures Contact Contact Authorized Diagnoses VICTOR MANUEL (obstructive sleep apnea) [facility] Polysomnography [address] [facility] [address] [place], [place] Phone: [phone] Electronically signed by Fifi Lennon MD at Reason for Visit Reason Comments O2 follow up Encounter Details Date Type Department Care Team Description 10/14/2020 Office Visit Jesús Lennon, Moderate per sistent asthma without complication (Primary Dx); Clinics Pulmonology MD Fifi Nocturnal hypoxemia; [place] [address] VICTOR MANUEL (obstructive sleep apnea ); [address] [place] [id number] Allergies Active Allergy Reactions Severity Noted Date Comments Amoxicillin Other (see comments) 10/06/2020 Redness and blistering of s kin Doxycycline Itching, Dermatitis Medium 11/12/2014 Ketorolac High 08/25/2017 Other reaction( s): Other (Comment) Face gets flush ed and arizmendi Other reaction( s): Flushed Ketorolac Tromethamine Medium 10/13/2017 Other reaction(s): Other Face gets red, arizmendi Nsaids (Non-Steroidal Itching Medium 12/24/2016 Oral o nly Anti-Inflammatory Drug) Othe r reaction(s): Other (Comment) Secondary to ga stric bypass should a void NSAIDS. Tolmetin Itching 01/05/2017 Oral only documented as of this encounter (statuses as of 10/24/2020) Medications Medication Sig Dispensed Refills Start Date End Date Status levothyroxine daily. 0 07/30/2013 Activ e (SYNTHROID) 100 mcg tablet liothyronine (CYTOMEL) Take 5 mcg by 0 05/18/2010 Active 25 mcg tablet mouth daily buPROPion XL daily. 0 Active (WELLBUTRIN XL) 300 mg 24 hr tablet ipratropium-albuterol inhale 2 puff by 36 g 4 01/04/2018 Active (COMBIVENT RESPIMAT) inhalation route 2 20-100 mcg/actuation times every day inhaler when not at home ; may take additional puffs as needed not to exceed 6 puffs in 24hrs DULoxetine (CYMBALTA) Take by mouth 2 0 06/05/2018 Active 60 mg capsule (two) times a day tamsulosin (FLOMAX) 0 06/05/2018 Active 0.4 mg capsule SUMAtriptan (IMITREX) 0 04/19/2019 Active 20 mg/actuation nasal spray SUMAtriptan (IMITREX) 100 mg as needed 0 04/13/2019 Active 100 mg tablet montelukast Take 1 tablet (10 90 tablet 6 01/28/2020 Active (SINGULAIR) 10 mg mg total) by mouth tabletIndications: nightly Moderate persistent asthma in adult without complication apixaban (Eliquis) 5 Take 1 tablet (5 180 tablet 3 04/23/2020 Active mg tablet mg total) by mouth 2 (two) times a day clonazePAM (KlonoPIN) Take 4.5 mg by 0 Active 1 mg tablet mouth daily fluticasone Inhale 1 puff 3 each 2 06/16/2020 Act yas furoate-vilanteroL daily Rinse mouth (Breo Ellipta) 200-25 well after each mcg/dose blister with use. Do not deviceIndications: swallow. Moderate persistent asthma, unspecified whether complicated lithium (ESKALITH) 450 Take 900 mg by 0 06/25/2020 Active mg CR tablet mouth daily metoprolol tartrate Take 0.5 tablets 90 tablet 3 08/05/2020 Active (LOPRESSOR) 25 mg (12.5 mg total) by 2 tablet mouth 2 (two) times a day albuterol HFA Inhale 2 puffs 54 g 1 09/26/2020 Active (Ventolin HFA) 90 every 4 (four) mcg/actuation hours as needed inhalerIndications: for wheezing Moderate persistent asthma without complication inhaler,assist 1 each every 4 1 each 11 09/26/2020 Active devices,access device (four) hours as needed (Wheezing, shortness of breath) To be used as directed with inhaler chlorhexidine SWISH 15 ML BY 0 08/26/2020 Active (PERIDEX) 0.12 % MOUTH FOR 30 solution SECONDS TWICE DAILY diazePAM (VALIUM) 10 TAKE ONE TABLET BY 0 09/19/2020 Active mg tablet MOUTH DAILY NEEDED FOR 30 DAYS OptiChamber Clotilde USE WITH INHALER 0 09/30/2020 Active VHC spacer EVERY 4 HOURS NEEDED FOR WHEEZING SHORTNESS OF BREATH DIRECTED prochlorperazine Take 10 mg by 0 09/24/2020 Active (COMPAZINE) 10 mg mouth tablet zolpidem (AMBIEN) 10 TAKE ONE TABLET BY 0 09/16/2020 Active mg tablet MOUTH AT BEDTIME FOR SLEEP ipratropium-albuteroL Take 3 mL by 0 Active (DUO-NEB) 0.5-2.5 mg/3 nebulization every mL nebulizer solution 6 (six) hours documented as of this encounter (statuses as of 10/24/2020) Active Problems Problem Noted Date Moderate persistent asthma without complication 2019 Nocturnal hypoxemia 01/28/2020 Paroxysmal atrial fibrillation 04/16/2019 S/P patent foramen ovale closure 12/21/2017 Fibromyalgia 02/03/2017 Overview: BRIEF HISTORY: 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 s ? started post waterskiing trial (no fall, just straining with trying to waterski - richard n persisting post that one event without trauma). ? He states he has had issues of other p ains since 2003 complications from gastric bypass when he was hospitalized for 4 months. Mainly issues of abdominal pain. He states he tried to go back to work in 2004 and then by 2005 (working in [email or web address]) he started noticing issues of calculating and noted to have CVA and a few more TIA? s subsequently and eventually found to have an ASD. ? He states he has had 30-45 minutes of stiffness in the am since mid 2015 or so ? all over? that he has not had previously. ? Issues of severe depression and anxiet y ? started in 1993 ? around the time that he discovered that his daughter had anorexia. ? Issues of chronic narcotic pain manage ment ? from 2003 to October 2016. ? Issues of chronic fatigue ? Issues of chronic headaches RADIOLOGY: -- lumbar spine films 06/08/16: significa nt degeneration at L5-S1 with appearance of degenerative disc disease and facet arthropathy and to a lesser degree at L4- L5. Multiple vertebrae with endplate spur ring more mild to moderate in degree. Si joints are not well visualized. -- MRI of lumbar spine on 06/15/16: images reviewed showing no issues of ankylosing spondylitis in the lumbar spine or in the visualized areas of the SI joints with STIR images specifically showing no osteitis lesions. Last Assessment & Plan: IMPRESSION: -- patient referred by Dr. Shai cruz concerns of psoriatic arthritis with chronic musculoskeletal pain in the setting of also having psoriasis and with reviewing of his x-rays and pain history it b ammoname fairly evident quickly that we wer e dealing with an issue beyond an inflammatory arthritis which includes osteoarthritis but also concerns of hyperalgesia. ? The patient has 18/18 (+) tender points on exam with > 3 months of widespread pain including the spine ? the patient fulfills the 1990 ACR criteria for fibromyalgia. -- patient meets criteria for Fibromyalg ia as stated above with a fairly consistent history having pain since his 20s not consistent inflammatory back pain and having no signs of ankylosing spondylitis on x-rays and MRI which were reviewed to day. His chronic pain worsened post a very traumatizing time in 2003 due to complications from gastric bypass with significant worsening pain and eventually using chronic pain medications at high dosage s very typical in many with Fibromyalgia as well who are not identified as having issues of hyperalgesia. -- on exam the only significant finding was his highly positive tender point exam, with no synovitis, no significant nail dystrophy, no dactylitis in his fingers, and no joint deformities. -- I covered the issue of Fibromyalgia w ith the patient and his as well as the issues of osteoarthritis discussed below. -- patient is already seeing a physiatri st in relation to issues of chronic pain and recently has been placed on Go which has seemed to already help to some extent. PATIENT INSTRUCTIONS: ? I did go over the common symptoms of fibromyalgia with the patient. 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 ? Advised also that fibromyalgia will not lessen a person? s life span or cause organ damage ? it is just an issue of nervous system hypersensitivity. ? Advised that fibromyalgia / central sensitization can be looked at as a hypersensitivity to any stimulus --> why many with fibromyalgia will have light sensitivity, sound sensitivity, touch sensitivity, bowel sensitivity, fatigue, etc. PLAN: -- continue gabapentin and certainly shannon sonable to increase as per another provider. -- the rheumatology department at [facility] at this time is concentrating on following patients with inflammatory arthritis / autoinflammatory disorders / autoimmune disease. This is mainly due to the fact th at we have more patients than we have pr oviders to manage and don't want patients with concerning organ threatening autoimmune disease to wait months to be seen. Therefore, we need to whittle down our p atient load away from issues that don't need our monitoring (degenerative arthritis, tendonitis, soft-tissue rheumatism, and fibromyalgia). We are therefore requesting other providers (mainly primary care providers but also in some cases ph ysiatry, neurology, orthopedics and pain management) to assume care of other causes of musculoskeletal pain which would include the medications we have used for t hose issues (gabapentin, pregabalin, dul oxetine, tramadol, NSAIDS, muscle relaxers, etc). Osteoarthropathy 02/03/2017 Overview: BRIEF HISTORY: known problem of peripher al degenerative joint disease and degenerative spine disease. Last Assessment & Plan: IMPRESSION: -- patient certainly has issues of osteo arthritis spinal and peripheral although significantly more in his spine. -- I discussed the issue of degenerative arthritis with the patient and advised him that this is also called OA and advised that this is a different problem than the issue of nerve hyperalgesia aka Fibr omyalgia and inflammatory arthritis such as psoriatic arthritis which currently he does not appear to have as stated above. Chronic fatigue 02/03/2017 Last Assessment & Plan: IMPRESSION: -- I emphasized the importance of good q uality sleep in the setting of fibromyalgia and that states of increased pain / hyperalgesia can be induced through sleep deprivation (PAIN 154 (2013) 1613? 1621 ). Sleep deprivation and pain are intim ately linked (The Journal of Pain, Vol 14, No 12 (March), 2012: pp 3724-3035). History of sarcoidosis 11/07/2014 Overview: BRIEF HISTORY: Sarcoidosis stage I diagn osed in , resolved without treatment. -- Pulmonary function test January 2015 showed FVC 69% FEV1 72% ratio 0.78 TLC 82% RV 99% DLCO 96%. Hypothyroidism 09/28/2014 Suicidal ideation 09/28/2014 History of gastric bypass 07/30/2013 Essential hypertension 07/30/2013 Dyslipidemia 07/30/2013 Psoriasis 07/30/2013 ASD (atrial septal defect) 03/18/2013 History of stroke 06/20/2012 Overview: BRIEF HISTORY: history of gastric bypass in 2004 complicated by bowel perforation, septic shock, and ICU stay with mechanical ventilation. Classic migraine with aura 05/02/2012 PFO (patent foramen ovale) 05/02/2012 Anxiety and depression 03/29/2012 Last Assessment & Plan: IMPRESSION: -- we discussed the interplay of emotion al stress in relation to chronic pain and the need for stress management to help with pain management. PLAN: -- recommend cognitive behavioral therap y - I rarely see patients with fibromyalgia do well outside of significant improvements in stress reduction. For this reason, I highly encourage all patients with fibromyalgia to participate in cognitiv e behavioral therapy - it is proven to be of benefit specifically in fibromyalgia more than other types of therapies (PAIN 151 (2010) 280? 29) Anemia 03/29/2012 Kidney stone 08/17/2010 documented as of this encounter (statuses as of 10/24/2020) Resolved Problems Problem Noted Date Resolved Date Childhood asthma 03/19/2013 01/28/2020 documented as of this encounter (statuses as of 10/24/2020) Immunizations Name Administration Dates Next Due Hep A, Adult (Havrix, Vaqta) 12/06/2012, 04/21/2012 Hep B, Adult (Engerix,Recombivax) 12/06/2012, 05/31/2012, Influenza, Quadrivalent 01/20/2016, 02/03/2015, 02/14/2013, 02/05/2013, 01/19/2012, 01/21/2011, 02/03/2010, 01/09/2009, 02/08/2008, 02/02/2007, 01/28/2006 Live Zoster (Zostavax) 04/12/2012, 09/09/2010 Pneumococcal Conjugate 03/16/2011 Pneumococcal Conjugate PCV13 04/24/2014 ([id number]) Pneumococcal Polysaccharide PPV23 03/06/2008 ([id number]) Tdap (Boostrix,Adacel) 08/13/2011 Typhoid Inactivated 04/20/2012 documented as of this encounter Social History Tobacco Use Types Packs/Day Years Used Date Former Smoker Cigarettes 2 19 Quit: 01/12/19 87 Smokeless Tobacco: Never Used Alcohol Use Standard Drinks/Week Comments Yes 0 (1 standard drink = 0.6 oz pure alcoho l) rarely Sex Assigned at Date Recorded Male 01/12/2017 2:09 PM PDT Job Start Date Occupation Industry Not on file Not on file Not on file COVID-19 Exposure Response Date Recorded In the last month, have you been in contact with No / Unsure 10/06/2020 9:38 AM PDT someone who was confirmed or suspected to have Coronavirus / COVID-19? documented as of this encounter Last Filed Vital Signs Vital Sign Reading Time Taken Comments Blood Pressure 108/75 10/14/2020 11:29 AM PDT Pulse 70 10/14/2020 11:29 AM PDT Temperature 36.7 ??C (98.1 ??F) 10/14/2020 11:29 AM PDT Respiratory Rate - - Oxygen Saturation 96% 10/14/2020 11:29 AM PDT Inhaled Oxygen Concentration - - Weight 111 kg (244 lb 1.6 oz) 10/14/2020 11:29 AM PDT Height 170.2 cm (5' 7) 10/14/2020 11:29 AM PDT Body Mass Index 38.23 10/14/2020 11:29 AM PDT documented in this encounter Patient Instructions Patient InstructionsFifi Lennon MD - 10/14/2020 11:20 AM PDT You will be scheduled for PFTs, sleep study and CT of your chest. Follow up with Dr. Lennon after tests. documented in this encounter Progress Notes Fifi Lennon MD - 10/14/2020 11:20 AM PDT Subjective Patient ID: Fahad Hemphill is a 65 y.o. male that had concerns including O2 follow up. HPI The patient is a 65 year old man with history of asthma for which he has been using Breo and Combivent. He reports persistent symptoms of dyspnea, cough and fatigue. He has distant history of sarcoidosis back in .At that time he took Prednisone for several months. January 2015 showed FVC 69% FEV1 72% ratio 0.78 TLC 82% RV 99% DLCO 96%. He has been followed by cardiology for arrhythmias and recent Holter showed short episodes of SVT but no atrial fib. He has history of PFO and CVAs and is s/p closure procedure. He has history of nocturnal hypoxemia and had been on night time oxygen. Has history of sleep apneawhich was thought to be secondary to use of Overnight pulse oximetry in January 2020 showed lowest oxygen saturation 84%. Oxygen saturation was less than 89% for about [address] chest PE protocol 04/04/16 no PE. ??He had a left lower lobe pneumonia. Patient Active Problem List Diagnosis ??? Anxiety and depression ??? ASD (atrial septal defect) ??? Anemia ??? Classic migraine with aura ??? History of gastric bypass ??? Essential hypertension ??? Dyslipidemia ??? History of stroke ??? Hypothyroidism ??? Kidney stone ??? PFO (patent foramen ovale) ??? Psoriasis ??? History of sarcoidosis ??? Suicidal ideation ??? Fibromyalgia ??? Osteoarthropathy ??? Chronic fatigue ??? S/P patent foramen ovale closure ??? Paroxysmal atrial fibrillation (CMS/HCC) ??? Moderate persistent asthma without complication ??? Nocturnal hypoxemia Objective BP 108/75 (BP Location: Left arm, Patient Position: Sitting) Pulse 70 Temp 36.7 ??C (98.1 ??F)(Oral) Ht 1.702 m Wt 111 kg SpO2 96% BMI 38.23 kg/m?? Physical Exam Vitals reviewed. Constitutional: Appearance: He is obese. Cardiovascular: Rate and Rhythm: Normal rate. Heart sounds: No murmur heard. Pulmonary: Breath sounds: No wheezing or rhonchi. Musculoskeletal: Right lower leg: Edema present. Left lower leg: Edema present. Neurological: Mental Status: He is oriented to person, place, and time. Psychiatric: Behavior: Behavior normal. Assessment/Plan Diagnoses and all orders for this visit: Moderate persistent asthma without complication - Complete PFT with DLCO; Future Nocturnal hypoxemia VICTOR MANUEL (obstructive sleep apnea) - Polysomnography; Future Sarcoidosis - CT CHEST WITH CONTRAST; Future - Complete PFT with DLCO; Future Assessment/Plan Comments: 65 year man with history of multiple medical problems including diagnosis of asthma and previous active sarcoidosis. Now with worsening respiratory symptoms including dyspnea and cough. Also has persistent nocturnal hypoxemia and remains on supplemental oxygen. Differential gnosis would include persistent asthma but also need to consider recurrence or exacerbation of underlying sarcoidosis. Patient was on prednisone several years ago. Patient wonders about diagnosis of COPD and was told in the ER that he may have COPD. His previous spirometry did not showobstructive airway disease. At this time would recommend obtaining pulmonary function test and CT of the chest with contrast. In terms of his sleep issues patient previously was told that his sleep apnea resolved after bariatric surgery. However he continues to have obesity and has nocturnal hypoxemia. Patient reports feeling tired and has poor sleep quality. Would recommend obtaining overnight polysomnography. All questions were answered and the patient was appreciative. Electronically signed by Fifi Lennon MD 10/14/2020 2:18 PM documented in this encounter Plan of Treatment Upcoming Encounters Date Type Specialty Care Team Description 12/03/2020 Appointment Respiratory Therapy Alhaji Lennon MD [address] [place], [place] [id number] 02/05/2021 Office Visit Cardiology Joseluis Colon MD [address] [place] [address] Scheduled Orders Name Type Priority Associated Order Schedule Diagnoses Polysomnography [facility] Routine VICTOR MANUEL (obstructive 1 Occurr ences sleep apnea) starting 2020 until 2 Complete PFT with DLCO PFT Routine Moderate persisten t 1 Occurrences asthma without starting 09/2020 complication until 10/14/2021 Sarcoidosis SARS-CoV-2 (COVID-19) Microbiology Routine VICTOR MANUEL (obstructive 1 Occurrences QUAL PCR (General sleep apnea) starting 0 10/14/2020 Screening) until 2 documented as of this encounter Results CT CHEST WITH CONTRAST (10/19/2020 2:54 PM PDT) Specimen Narrative Performed At [facility] [place]. [address] PATIENT NAME: FAHAD HEMPHILL : 1955 GENDER: M EXAM DATE: 10/19/2020 ?? 14:43 ORDERED FROM: [facility] ORDERING PHYSICIAN: FIFI LENNON CC: ??-- ??- ??- ??- CONTRAST: ? 100ML ISOVUE 300 READING STATION ID: [id number] mGy: PROCEDURE: ??CT CHEST WITH CONTRAST INDICATIONS: ??Chest pain or SOB, pleurisy or effusion suspected TECHNIQUE: ?? After the administration of intravenous contrast, 5-mm thick sections acquired from the pulmonary apices to t he posterior costophrenic angles. ??1 mm axial lung windo w, as well as 7 mm thick axial MIP reformats, were performed. ??5-mm coronal and sagittal reformats were obtained. For radiation dose reduction, the following was used: ??automated exposure control, adjustment of mA and/or kV according to patient size. ?? COMPARISON: ??[facility], CT, PE STUDY (CTA CHEST ), 04/04/2016, 11:01. ??[facility], CT, THORAX WITHO UT CONTRAST, 05/16/2014, 9:28. ??[facility], CT, CT ABDOMEN PELVIS W CON, 11/10/2018, 11:48. ??[facility], CR, XR CHEST 1V, 10/08/2020, 11:11. ??[facility], CR, XR CHEST 2V, 10/10/2020, 21 :33. FINDINGS: ?? Image quality: ??Excellent. ?? Lungs and pleura: ??Subpleural nodules or nodular infiltrates in left upper lobe and right middle lobe. ??Bibasilar scars and atelectasis. ??No pleural effusi ons or pneumothorax. ??Central and peripheral airways are patent and normal in caliber. ??Lung nodules are prese nt bilaterally. Nodule 1: ??4 mm; right middle lobe; ser ies 3, image 193. Nodule 2: 4 mm nodule in the left lower lobe; series 3 , image 168. ?? Mediastinum: ??Heart size is normal. ??Atrial septal defect closure. ??Mild coronary artery calcification. ??No pericardial effusion. ??No mediastinal or hilar adenopathy by size criteria. ??Thoracic aorta and cent ral pulmonary arteries are normal in size. ??Esophagus is normal in caliber. ??Small hiatal hernia and mild concentric thickening at the GE junction .. ?? Bones and chest wall: ??No suspicious bony lesions. ?? No vertebral body compression fractures. ??No axillary or supraclavicular adenopathy by size criteria. ??Thyroid gland is unremarkable. ?? Abdomen: ??There is a 4 cm cyst in the superior pole o f the right kidney. ??Cholecystectomy. ??G astric bypass. IMPRESSION: ?? 1. No pleural effusions. 2. Subpleural nodules or nodular infiltrates in left upper lobe and right middle lobe. ??Infectious or inflammatory etiology is suspected. 3. Small lung nodules as described. ??Please see enclo sed follow-up recommendation. 4. Small hiatal hernia. ??There is mild concentric thickening at the GE junction. ?? Fleischner Society criteria for SOLID lung nodule followup. ?? Nodule size (mm)Low-risk patientHigh-risk patient??4No follow-up neededFollow-up at 12 mo; if no change, no further follow-up>[id number] CT at 12 mo; if no dowling ge, no further follow-up needed.Initial follow-up CT at 6- 12 mo, then 18-24 mo if no change. ??>6-8Initial follow-u p CT at 6-12 mo, then 18-24 mo if no change. Initial follow-up CT at 3-6 mo, then 9-12 mo and 24 mo if no change. ??>8Follow-up CT at 3, 9, 24 mo. ??Or PET and/ or biopsy.Same as for low-risk pts. ?? Fleischner Society criteria for SUB-SOLID lung nodule followup. ?? Solitary pure ground-glass nodules5 mm or lessNo follo wup needed. ??>5 mm3 mo follow-up CT to confirm persistenc e. ??Then annual CT for 3 years. ??Part-solid nodules3 mo follow-up CT to confirm persistence. ??If persistent w ith solid component <5 mm, annual CT for at least 3 years. ??If solid component is 5 mm or more, biopsy or surgic al resection. ??Consider PET-CT for lesions > 10 mm. ??Multiple sub-solid nodulesPure ground glass nodules [address] at 2 and 4 years. ??Pure ground glass nodules >5 mm without dominant lesion. ??[address] to confirm persistence, then annual follow up CT for at least 3 years. ??Dominant nodule(s) with part-solid or solid component. ??[address] t o confirm persistence. ??If persistent, consider biopsy or surgical resection, jona if lesions have >5 mm solid component. ? Reviewed by: Savanna Dominguez M.D. on 1 at 19:26 ? Approved by: Savanna Dominguez M.D. on 1 at 20:43 ? Procedure Note Interface, Radiology Results In - 2020 8:41 [place]. [address] PATIENT NAME: FAHAD HEMPHILL : 1955 GENDER: M EXAM DATE: 10/19/2020 14:43 ORDERED FROM: [facility] ORDERING PHYSICIAN: FIFI LENNON CC: -- - - - CONTRAST: 100ML ISOVUE 300 READING STATION ID: [id number] mGy: PROCEDURE: CT CHEST WITH CONTRAST INDICATIONS: Chest pain or SOB, pleuris y or effusion suspected TECHNIQUE: After the administration of intravenous contrast, 5-mm thick sections acquired from the pulmonary apices to the posterior costophrenic angles. 1 mm axial lung window, as well as 7 mm thick axial MIP reformats, were performed. 5-mm coronal and sagittal re formats were obtained. For radiation dose reduction, the following was used: automated exposure control, adjustment of mA and/or kV according to patient size. COMPARISON: [facility], CT, PE JOY DY (CTA CHEST), 04/04/2016, 11:01. [facility], CT, THORAX WITHOUT CONTRAST, 05/16/2014, 9:28. [facility], CT, CT ABDOMEN PELVIS W CON, 11/10/2018, 11:48. [facility], CR, XR CHEST 1V, 10/08/2020, 11:11. [facility], CR, XR CHEST 2V, 10/10/2020, 21:33. FINDINGS: Image quality: Excellent. Lungs and pleura: Subpleural nodules or nodular infiltrates in left upper lobe and right middle lobe. Bibasilar scars and atelectasis. No pleural effusions or pneumothorax. Central and peripheral airways are patent and normal in caliber. Lung nodules are pre sent bilaterally. Nodule 1: 4 mm; right middle lobe; seri es 3, image 193. Nodule 2: 4 mm nodule in the left lower lobe; series 3, image 168. Mediastinum: Heart size is normal. Atr ial septal defect closure. Mild coronary artery calcification. No pericardial effusion. No mediastinal or hilar adenopathy by size criteria. Thoracic aorta and central pulmonary arteries are normal in size. Esophagus is normal in caliber. Small hiatal hernia and mild concentric thickening at the GE junction.. Bones and chest wall: No suspicious bon y lesions. No vertebral body compression fractures. No axillary or supraclavicular adenopathy by size criteria. Thyroid gland is unremarkable. Abdomen: There is a 4 cm cyst in the buchanan perior pole of the right kidney. Cholecystectomy. Gastric bypass. IMPRESSION: 1. No pleural effusions. 2. Subpleural nodules or nodular infiltr ates in left upper lobe and right middle lobe. Infectious or inflammatory etiology is suspected. 3. Small lung nodules as described. Ple ase see enclosed follow-up recommendation. 4. Small hiatal hernia. There is mild c oncentric thickening at the GE junction. Fleischner Society criteria for SOLID benji ng nodule followup. Nodule size (mm)Low-risk patientHigh-ris k patient??4No follow-up neededFollow-up at 12 mo; if no change, no further follow-up>2-8Brfymr-yq CT at 12 mo; if no change, no further follow-up needed.Initial follow-up CT at 6-12 mo, then 18-24 mo if no davis e. >6-8Initial follow-up CT at 6-12 mo, then 18-24 mo if no change. Initial follow-up CT at 3-6 mo, then 9-12 mo and 24 mo if no change. >8Follow-up CT at 3, 9, 24 mo. Or PET and/or biopsy.Same as for low-risk pts. Fleischner Society criteria for SUB-PEPITO D lung nodule followup. Solitary pure ground-glass nodules5 mm o r lessNo followup needed. >5 mm3 mo follow-up CT to confirm persistence. Then annual CT for 3 years. Part-solid nodules3 mo follow-up CT to confirm persistence. If persistent with solid component <5 mm, annual CT fo r at least 3 years. If solid component is 5 mm or more, biopsy or surgical resection. Consider PET-CT for lesions > 10 mm. Multiple sub-solid nodulesPure ground glass nodules [address] at 2 and 4 years . Pure ground glass nodules >5 mm without dominant lesion. [address] to confirm persistence, then annual followup CT for at least 3 years. Dominant nodule(s) with part-solid or solid component. [address] to confirm persistence. If persistent, consider biopsy or surgical resection, jona if lesions have >5 mm solid component. Reviewed by: Savanna Dominguez M.D. on 1 at 19:26 Approved by: Savanna Dominguez M.D. on 1 at 20:43 Performing Organization Address City/State/ZIP Code Phon e Number [facility] [address] [place] [address] documented in this encounter Visit Diagnoses Diagnosis Moderate persistent asthma without compl ication - Primary Nocturnal hypoxemia VICTOR MANUEL (obstructive sleep apnea) Obstructive sleep apnea (adult) (pediatr ic) Sarcoidosis documented in this encounter Insurance Payer Benefit Plan / Subscriber ID Effective Dates Phone Addre ss Type Group MEDICARE MEDICARE PART A [id number] 2007-Present AND B [facility] SUPP [id number] 2016-Present SUPP documented as of this encounter Advance Directives Documents on File Type Date 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
== END 2020-10-11 02:05 | disposition home or self-care (01) ==
PROVIDERS: Emergency Provider Emergency Medicine; PCP Internal Medicine
DX: J81.1 Chronic pulmonary edema (principal); R06.00 Dyspnea, unspecified; Z87.891 Personal history of nicotine dependence; Z20.822 Contact with and (suspected) exposure to COVID-19
CPT/HCPCS: 36415; 71046; 80053; 83605; 83880; 85025; 85610; 87635; 93005; 99284; C9803; J1642

== ENCOUNTER → 2020-10-30 11:13 | Outpatient (CLI) | payer MEDICARE, SELFPAY ==
[2019-09-30 20:07] VITALS: BMI 34.4
[2020-10-30 11:54] LABS: COVID19 -Nasal RAPID Negative (Negative)
== END ==
PROVIDERS: PCP Internal Medicine; Referring Provider Internal Medicine; Visit Provider Internal Medicine
DX: Z01.812 Encounter for preprocedural laboratory examination (principal); Z20.822 Contact with and (suspected) exposure to COVID-19; G47.19 Other hypersomnia; G47.30 Sleep apnea, unspecified; F51.05 Insomnia due to other mental disorder; F99 Mental disorder, not otherwise specified
CPT/HCPCS: 87635; 99214; C9803

== ENCOUNTER → 2020-10-31 08:49 | Outpatient (CLI) | payer MEDICARE, SELFPAY ==
[2019-09-30 20:07] VITALS: BMI 34.4
--- OUTSIDE RECORDS SUMMARY | 2020-10-28 08:29 | XMS_ITS | Referral Summary ---
:1955 Author Organization [address] [address] Care Team Providers Name Role Phone Garret Miller Primary Care Provider Reason for Referral Consultation (Routine) Status Reason Specialty Diagnoses / Referred By Referred To Procedures Contact Contact Authorized Diagnoses Moderate persistent asthma without complication [facility]osis [facility] Complete PFT with DLCO [address] [place] [address] [address] [facility] [id number] [place] [address] Phone: [phone] Electronically signed by Fifi Lennon MD atMRI/CAT/PET Scan (Routine) Status Reason Specialty Diagnoses / Referred By Referred To Procedures Contact Contact Closed Specialty Services Radiology Diagnoses Sarcoidosis Saji [facility] Required Procedures CT CHEST WITH CONTRAST MD Fifi [address] [id number] 45 [id number] Phone: Electronically signed by Fifi Lennon MD atDiagnostic Lab (Routine) Status Reason Specialty Diagnoses / Referred By Referred To Procedures Contact Contact Authorized Diagnoses VICTOR MANUEL (obstructive sleep apnea) [facility] Polysomnography [address] [place] [address] [address] [facility] [id number] [place], [place] Phone: [phone] Electronically signed by Fifi Lennon MD at Reason for Visit Reason Comments O2 follow up Encounter Details Date Type Department Care Team Description 10/14/2020 Office Visit Jesús Lennon, Moderate per sistent asthma without complication (Primary Dx); Clinics Pulmonology MD Fifi Nocturnal hypoxemia; [place] [address] VICTOR MANUEL (obstructive sleep apnea ); [address] Sarcoidosis [place], [place] [id number] Allergies Active Allergy Reactions [...] as of this encounter (statuses as of 10/27/2020) Medications Medication Sig Dispensed Refills Start Date [...] as of this encounter (statuses as of 10/27/2020) Active Problems Problem Noted Date Moderate persistent asthma without complication 2019 Nocturnal hypoxemia 01/28/2020 Paroxysmal atrial fibrillation 04/16/2019 S/P patent foramen ovale closure 12/21/2017 Fibromyalgia 02/03/2017 Overview: BRIEF HISTORY: 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 -- the rheumatology department at [facility] at this time is concentrating on [...] of Pain, Vol 14, No 12 (March), 2013: pp [id number]). History of sarcoidosis 11/07/2014 Overview: BRIEF HISTORY: [...] BRIEF HISTORY: history of gastric bypass in 2003 complicated by bowel perforation, septic shock, and [...] as of this encounter (statuses as of 10/27/2020) Resolved Problems Problem Noted Date Resolved Date Childhood asthma 03/19/2013 01/28/2020 documented as of this encounter (statuses as of 10/27/2020) Immunizations Name Administration Dates Next Due Hep A, Adult (Havrix, Vaqta) 12/06/2012, 04/21/2012 Hep B, Adult (Engerix,Recombivax) 12/06/2012, 05/31/2012, Influenza, Quadrivalent 01/20/2016, 02/03/2015, 02/14/2013, 02/05/2013, 01/19/2012, 01/21/2011, 02/03/2010, 01/09/2009, 02/08/2008, 02/02/2007, 01/28/2006 Live Zoster (Zostavax) 04/12/2012, 09/09/2010 Pneumococcal Conjugate 03/16/2011 Pneumococcal Conjugate PCV13 04/24/2014 ([id number]) Pneumococcal Polysaccharide PPV23 03/06/2008 ([id number]) Tdap (Boostrix,Adacel) 08/13/2011 Typhoid Inactivated 04/20/2012 documented [...] of your chest. Follow up with Dr. Lenonn after tests. documented in this encounter Progress [...] Respiratory Therapy Alhaji Lennon MD [address] [place] [address] 02/05/2021 Office Visit Cardiology Joseluis Colon MD [address] [place], [place] [id number] Scheduled Orders Name Type Priority Associated Order [...] 2:54 PM PDT) Specimen Narrative Performed At [facility] [place], [place]. [id number] PATIENT NAME: FAHAD HEMPHILL : 1955 GENDER: M EXAM DATE: 10/19/2020 ?? 14:43 ORDERED FROM: [facility] ORDERING PHYSICIAN: FIFI LENNON CC: ??-- ??- [...] kV according to patient size. ?? COMPARISON: ??[facility], CT, PE STUDY (CTA CHEST ), 04/04/2016, 11:01. ??[facility], CT, THORAX WITHO UT CONTRAST, 05/16/2014, 9:28. ??[facility], CT, CT ABDOMEN PELVIS W CON, 11/10/2018, 11:48. ??[facility], CR, XR CHEST 1V, 10/08/2020, 11:11. ??[facility], CR, XR CHEST 2V, 10/10/2020, 21 [...] 12 mo; if no change, no further follow-up>4-1Oiytih-bx CT at 12 mo; if no dowling [...] Results In - 2020 8:41 [place]. [address] PATIENT NAME: FAHAD HEMPHILL : 1955 GENDER: M EXAM DATE: 10/19/2020 14:43 [facility] FIFI LENNON CC: -- - [...] and/or kV according to patient size. COMPARISON: [facility], CT, PE JOY DY (CTA CHEST), 04/04/2016, 11:01. [facility], CT, THORAX WITHOUT CONTRAST, 05/16/2014, 9:28. [facility], CT, CT ABDOMEN PELVIS W CON, 11/10/2018, 11:48. [facility], CR, XR CHEST 1V, 10/08/2020, 11:11. [facility], CR, XR CHEST 2V, 10/10/2020, 21:33. [...] 12 mo; if no change, no further follow-up>8-9Hqgqau-uy CT at 12 mo; if no change, [...] at 20:43 Performing Organization Address City/State/ZIP Code [facility] e Number [facility] [address] [place] [address] documented in this encounter Visit Diagnoses Diagnosis Moderate persistent asthma without compl ication - Primary Nocturnal hypoxemia VICTOR MANUEL (obstructive sleep apnea) Obstructive sleep apnea (adult) (pediatr ic) Sarcoidosis documented in this encounter Insurance Payer Benefit Plan / Subscriber ID Effective Dates Phone Addre ss Type Group MEDICARE MEDICARE PART A [id number] 2007-Present AND B [facility] SUPP [id number] 2016-Present SUPP documented as of this encounter Advance Directives Documents on File Type Date 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
--- NOTE | 2020-11-07 07:42 | PM.PFT.1 ---
Pulmonary Function Test Referral & Results Date Patient Seen: 10/31/20 Requesting provider: Nima Lennon Indication: Asthma, sarcoidosis Results: The spirometry demonstrates an FVC of 2.05 L which is 50% of predicted. The FEV1 was measured at 1.61 L which is 53% of predicted. The FEV1/FVC ratio was 78 which is 105% of predicted. Following the administration of bronchodilator there was 16% improvement in FEV1 and a 105% improvement in FEF 25-75%. Lung volumes show an SVC of 2.29 L which is 54% of predicted. The diffusing capacity was measured at 20.83 which is 73% of predicted. No hemoglobin value was provided, so no correction for potential anemia could be made, if appropriate. The maximum voluntary ventilation was reduced Interpretation: This study demonstrates perhaps mild obstructive lung disease based on reduction FEV1 although FEV1/FVC ratio or preserved suggesting more restrictive lung disease causing changes to FEV1. There is however evidence of benefit following bronchodilator as above particularly in small airway flow There is a moderate reduction SVC suggesting moderate restrictive lung disease present There is also mild reduction in diffusing capacity suggesting element of disease at the capillary alveolar level Compared to PFTs performed in January 2015, current study shows slight decline in FEV1 but otherwise spirometry is essentially unchanged. Diffusing capacity was previously normal verses current study. Clinical correlation suggested
== END ==
PROVIDERS: PCP Internal Medicine; Referring Provider Internal Medicine Critical Care Medicine; Visit Provider Internal Medicine Critical Care Medicine
DX: J45.40 Moderate persistent asthma, uncomplicated (principal); D86.9 Sarcoidosis, unspecified; Z87.891 Personal history of nicotine dependence
CPT/HCPCS: 94060; 94726; 94729

== ENCOUNTER → 2020-11-04 13:43 | Outpatient (CLI) | payer MEDICARE, SELFPAY ==
[2019-09-30 20:07] VITALS: BMI 34.4
[2020-11-04 15:53] LABS: Free T3, Triiodothyronine Free 3.01 pg/mL (2.77-5.27)
[2020-11-04 16:07] LABS: TSH w/ Reflex to FT4 2.03 uIU/mL (0.47-4.68)
== END ==
PROVIDERS: PCP Internal Medicine; Referring Provider Internal Medicine; Visit Provider Internal Medicine
DX: E03.9 Hypothyroidism, unspecified (principal)
CPT/HCPCS: 36415; 84443; 84481

== ENCOUNTER → 2020-11-20 07:50 | Outpatient (CLI) | payer MEDICARE, SELFPAY ==
[2019-09-30 20:07] VITALS: BMI 34.4
[2020-11-20 09:11] LABS: Lithium 1.2 mmol/L (0.6-1.2)
[2020-11-20 09:16] LABS: Alanine Aminotransferase 22 IU/L (<50); Albumin 4.1 g/dL (3.5-5.0); Albumin Globulin Ratio 1.4 (1.0-2.8); Alkaline Phosphatase 84 U/L (38-126); Aspartate Aminotransferase 26 IU/L (17-59); BUN Creatinine Ratio 14.9 (6-22); Bilirubin Total 0.6 mg/dL (0.2-1.3); Blood Urea Nitrogen 22 mg/dL (9-20); Calcium 9.8 mg/dL (8.4-10.2); Carbon Dioxide 31 mmol/L (22-32); Chloride 104 mmol/L (98-107); Estimated Glomerular Filt Rate 47.6 mL/min (>60); Globulin 2.9 g/dL (1.7-4.1); Glucose 92 mg/dL (80-110); HEMOLYSIS < 15 (0-50); Potassium 4.3 mmol/L (3.4-5.1); Sodium 139 mmol/L (137-145)
== END ==
PROVIDERS: PCP Internal Medicine; Referring Provider Psychiatry & Neurology Psychiatry; Visit Provider Psychiatry & Neurology Psychiatry
DX: F31.9 Bipolar disorder, unspecified (principal)
CPT/HCPCS: 36415; 80053; 80178

== ENCOUNTER → 2020-11-20 07:52 | Outpatient (CLI) | payer MEDICARE, SELFPAY ==
[2019-09-30 20:07] VITALS: BMI 34.4
--- NOTE | 2020-11-20 07:56 | DI.RAD.S_ITS ---
PROCEDURE: XR CHEST 2V INDICATIONS: COUGH TECHNIQUE: 2 views of the chest were acquired. COMPARISON: [facility], CR, XR CHEST 2V, 10/10/2020, 21:33. FINDINGS: Surgical changes and devices: Left chest port with the tip projecting in the lower SVC. Left shoulder arthroplasty hardware as before. Lungs and pleura: Scattered subsegmental atelectasis and/or scarring. No focal consolidation. No pleural effusion or pneumothorax. Mediastinum: Mediastinal contours are normal. Heart size is normal. Bones and chest wall: No suspicious bony abnormalities. Soft tissues appear unremarkable. IMPRESSION: Scattered subsegmental atelectasis and/or scarring. No focal consolidation. Dictated by: Earnest Ferrari M.D. on 11/20/2020 at 10:15 Approved by: Earnest Ferrari M.D. on 11/20/2020 at 10:17
== END ==
PROVIDERS: PCP Internal Medicine; Referring Provider Internal Medicine; Visit Provider Internal Medicine
DX: R05 Cough (principal)
CPT/HCPCS: 71046

== ENCOUNTER 2020-12-23 15:56 | Emergency (ER) | payer MEDICARE, SELFPAY ==
[2020-12-10 14:44] VITALS: BMI 34.4
[2020-12-23] VITALS (10 sets, daily range): BP systolic 114–150; BP diastolic 52–77; PULSE 80–91; RESP 20–31; TEMP 36.4–36.9; O2SAT 95–98
--- NOTE | 2020-12-23 16:02 | DI.RAD.S_ITS ---
PROCEDURE: XR CHEST 1V INDICATIONS: Chest pain TECHNIQUE: One view of the chest was acquired. COMPARISON: [facility], CR, XR CHEST 1V, 10/08/2020, 11:11. FINDINGS: Surgical changes and devices: Left chest wall central venous port catheter. Left shoulder arthroplasty. Lungs and pleura: Lungs are clear. No pleural effusions or pneumothorax. Mediastinum: Mediastinal contours appear normal. Heart size is normal. Bones and chest wall: No suspicious bony lesions. Overlying soft tissues appear unremarkable. IMPRESSION: No acute cardiopulmonary process demonstrated radiographically. Dictated by: Jamil Dale M.D. on 12/23/2020 at 16:50 Approved by: Jamil Dale M.D. on 12/23/2020 at 16:51
[2020-12-23] MEDS: ALBUTEROL/IPRATROPIUM 3 ML AMPUL INH ×2 (16:46→19:46)
[2020-12-23 17:36] LABS: Add Manual Diff / Slide Review NO; Basophils Absolute Auto 0 /uL (0-100); Basophils Percent Auto 0.5 % (0-2); Eosinophils Absolute Auto 0 /uL (0-450); Eosinophils Percent Auto 0.5 % (2-4); Hematocrit 44.8 % (41-53); Hemoglobin 14.8 g/dL (13.5-17.5); Lymphocytes Absolute Auto 900 /uL (1100-4500); Lymphocytes Percent Auto 10.3 % (25-40); Mean Corpuscular Hemoglobin 30.3 PG (26-34); Mean Corpuscular Volume 91.7 fL (80-100); Monocytes Absolute Auto 800 /uL (0-900); Monocytes Percent Auto 8.5 % (3-14); Neutrophils Absolute Auto 7100 /uL (1500-7000); Neutrophils Percent Auto 80.2 % (50-75); Platelet Count 163 X10^3/uL (150-400); Red Blood Cell Count 4.89 X10^6/uL (4.5-5.9); Red Cell Distribution Width 15.1 % (11.6-14.8); White Blood Cell Count 8.8 X10^3/uL (4.5-11.0)
[2020-12-23 17:46] LABS: Alanine Aminotransferase 34 IU/L (<50); Albumin 4.1 g/dL (3.5-5.0); Albumin Globulin Ratio 1.5 (1.0-2.8); Alkaline Phosphatase 89 U/L (38-126); Aspartate Aminotransferase 32 IU/L (17-59); BUN Creatinine Ratio 22.1 (6-22); Bilirubin Total 0.4 mg/dL (0.2-1.3); Blood Urea Nitrogen 32 mg/dL (9-20); Calcium 8.5 mg/dL (8.4-10.2); Carbon Dioxide 26 mmol/L (22-32); Chloride 106 mmol/L (98-107); Creatine Kinase 51 U/L (55-170); Estimated Glomerular Filt Rate 48.7 mL/min (>60); Globulin 2.7 g/dL (1.7-4.1); Glucose 81 mg/dL (80-110); HEMOLYSIS 19 (0-50); Lipase 152 U/L (23-300); Potassium 3.9 mmol/L (3.4-5.1); Sodium 139 mmol/L (137-145); Total Protein 6.8 g/dL (6.3-8.2)
[2020-12-23 17:57] LABS: Troponin I < 0.012 ng/mL (0.01-0.034)
--- NOTE | 2020-12-23 18:32 | ED.CHESTPAIN ---
HPI - Chest Pain <Brett Estrella PA-C - Last Filed: 12/25/20 13:56> General Chief Complaint: Chest Pain Stated Complaint: chest pain with difficulty breathing Time Seen by Provider: 12/23/20 16:23 Source: patient Mode of arrival: Ambulatory History of Present Illness HPI narrative: 65-year-old male with past medical history AFib, migraine, hyperlipidemia, hypothyroidism, CVA, COPD presents to the ED with 1 day of chest pain, shortness of breath. Patient states that his symptoms started as sharp, left-sided chest pain, aggravated by breathing. Patient also endorses shortness of breath, wheezing. Patient endorses history of COPD, took a nebulizer treatment just prior to arrival without relief. Patient denies fever, chills, cough, nausea, vomiting, abdominal pain, back pain, lightheadedness, dizziness, syncope. Related Data Home Medications Medication Instructions Recorded Confirmed fluticasone furoate 200 1 puff INH DAILY #0 12/03/16 11/19/20 mcg-vilanterol 25 mcg/dose inhalation powder (Breo Ellipta) ipratropium 20 mcg-albuterol 100 See Rx Instructions .ROUTE 04/15/17 11/19/20 mcg/actuation mist for inhalation .COMPLEX #0 MDD 6 (Combivent Respimat) albuterol sulfate 1.25 mg/3 mL 1.25 mg INH Q4HP PRN #0 05/24/17 11/19/20 solution for nebulization Vitamin B-12 1 tab PO DAILY 02/21/18 11/19/20 desonide 0.05 % topical cream 1 applic TOPICAL PRN PRN 02/21/18 11/19/20 calcium citrate 500 mg PO BID tab 03/28/18 11/19/20 apixaban 5 mg tablet (Eliquis) 5 mg PO BID 05/30/18 11/19/20 clobetasol 0.05 % topical ointment 1 applic TOPICAL SUSA PRN 04/18/19 11/19/20 multivitamin 1 tab PO TID tab 04/18/19 11/19/20 armodafinil 250 mg tablet (Nuvigil) 125 mg PO ONCE PRN tab 02/06/20 11/19/20 cholecalciferol (vitamin D3) 10 10 mcg PO DAILY 02/06/20 11/19/20 mcg (400 unit) capsule sumatriptan succinate 100 mg tablet 100 mg PO BID PRN tab 02/06/20 11/19/20 liothyronine 25 mcg tablet 5 mcg PO DAILY tab 09/16/20 11/19/20 fluticasone fur. 200 mcg-umeclid 1 inh INHALATION DAILY 11/19/20 11/19/20 62.5 mcg-vilant 25 mcg inhalat.powder (Trelegy Ellipta) Previous Rx's Medication Instructions Recorded Disabled Parking #1 each 08/02/19 ketoconazole 2 % shampoo See Rx Instructions .ROUTE 11/30/19 .COMPLEX #360 milliliter levothyroxine 100 mcg tablet 100 mcg PO QAM #90 tab 04/16/20 montelukast 10 mg tablet 10 mg PO BEDTIME #90 tab 04/16/20 (Singulair) tamsulosin 0.4 mg capsule 0.4 mg PO DAILY #90 cap 04/16/20 bupropion HCl 300 mg 24 hr tablet, See Rx Instructions .ROUTE 04/17/20 extended release .COMPLEX #90 tab sumatriptan 20 mg/actuation nasal 20 mg NASAL ONCE #6 ea 05/23/20 spray prochlorperazine maleate 10 mg 10 mg PO Q8H PRN #90 tab 05/26/20 tablet metoprolol tartrate 25 mg tablet 12.5 mg PO BID #90 tab 06/02/20 lithium carbonate 300 mg 900 mg PO BEDTIME #270 tab 10/02/20 tablet,extended release albuterol sulfate 1.25 mg/3 mL 1.25 mg INHALATION Q4-6H PRN #75 ml 10/08/20 solution for nebulization codeine sulfate 15 mg tablet 15 mg PO Q6H PRN #10 tab 10/08/20 loratadine 10 mg tablet (Claritin) 10 mg PO DAILY #10 tab 10/08/20 loratadine 10 mg tablet (Claritin) 10 mg PO DAILY PRN #20 tab 10/08/20 furosemide 40 mg tablet (Lasix) 40 mg PO DAILY #4 tab 10/11/20 lurasidone 20 mg tablet 20 mg PO DAILY #30 tab 12/01/20 clonazepam 1 mg tablet 2 mg PO TID #180 tab 12/08/20 zolpidem 10 mg tablet 10 mg PO BEDTIME #30 tab 12/22/20 Allergies Allergy/AdvReac Type Severity Reaction Status Date / Time amoxicillin Allergy Severe Face, Verified 12/23/20 19:28 chest, upper back - beat red. Welts. doxycycline [DOXYCYCLINE] Allergy Mild ITCHING Verified 12/23/20 19:28 ketorolac [KETOROLAC] Allergy Unknown Verified 12/23/20 19:28 NSAIDS (Non-Steroidal AdvReac Unknown TO AVOID Verified 12/23/20 19:28 Anti-Inflamma R/T [NSAIDS (NON-STEROIDAL GASTRIC ANTI-INFLAMMA] BYPASS controlled substance AdvReac Uncoded 11/19/20 14:47 agreement Review of Systems <Brett Estrella PA-C - Last Filed: 12/25/20 13:56> Constitutional Constitutional: Denies chills, Denies fatigue, Denies fever(s), Denies frequent falls, Denies lethargy and Denies weakness Eyes Eyes: Denies change in vision, Denies eye discharge, Denies irritation and Denies loss of vision ENT Ears, Nose, Mouth, and Throat: Denies change in voice, Denies dizziness, Denies neck pain, Denies sore throat and Denies throat swelling Cardiovascular Cardiovascular: Reports chest pain, Denies irregular heart rhythm, Denies lightheadedness, Denies palpitations, Reports dyspnea, Denies dyspnea on exertion and Denies orthopnea Respiratory Respiratory: Denies cough, Reports dyspnea, Denies dyspnea on exertion and Reports wheezing Gastrointestinal Gastrointestinal: Denies abdominal pain, Denies change in bowel habits, Denies diarrhea, Denies nausea and Denies vomiting Musculoskeletal Musculoskeletal: Denies neck pain and Denies numbness Integumentary/Breasts Skin/Breast: Denies pruritus, Denies erythema, Denies rash and Denies wounds Neurologic Neurologic: Denies behavioral changes, Denies confusion, Denies dizziness, Denies frequent falls, Denies loss of vision, Denies numbness and Denies weakness Psychiatric Psychiatric: Denies anxiety, Denies behavioral changes, Denies confusion, Denies depression, Denies homicidal ideation and Denies suicidal ideation Endocrine Endocrine: Denies fatigue, Denies flushing and Denies palpitations Hematologic/Lymphatic Hematologic/Lymphatic: Denies easy bruising Allergic/Immunologic Allergic/Immunologic: Denies urticaria, Denies throat swelling and Reports wheezing Patient History <Brett Estrella PA-C - Last Filed: 12/25/20 13:56> Medical History Anxiety Asthma Benzodiazepine dependence Chronic left shoulder pain (01/20/16) Chronic obstructive pulmonary disease (08/05/17) Chronic pain syndrome (11/08/16) Cognitive disorder (04/24/14) Deficiency of other specified B group vitamins Essential tremor Facet arthropathy, lumbar H/O migraine H/O renal calculi History of stroke Hypersomnia Hypothyroidism Insomnia Iron deficiency Major depressive disorder, recurrent episode, severe Mixed hyperlipidemia Narcotic dependence (09/01/16) Obesity with body mass index (BMI) of 30.0 to 39.9 (12/06/14) Paroxysmal atrial fibrillation Patent foramen ovale Pneumonia Post traumatic stress disorder (PTSD) Psoriasis S/P ECT (electroconvulsive therapy) Sarcoidosis Sleep apnea Vitamin B12 deficiency (02/19/11) Surgical History History of gastric bypass (~2003) History of Cris-en-Y gastric bypass (~2003) History of total shoulder replacement (~12/2015) S/P laparoscopic cholecystectomy (10/18/18) S/P lumbar laminectomy (~10/2017) Family History Father No problems noted. Mother No problems noted. 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 yeimy/church: [employer] travel history: over 6 months ago and other Smoking Status: Former smoker Tobacco: How many years used: 10 Smokeless tobacco user: other quit status: quit date established second hand exposure: Yes (Childhood) alcohol intake: current substance use type: does not use additional social history: Currently involved in a legal dispute with his son over the management of the patient's stepfather's estate. This has caused him significant levels of anxiety and frustration as he attempts to navigate this problem with his family. Smoking Status: Former smoker alcohol intake frequency: a few times a month Substance Use Type: does not use Exam <Brett Estrella PA-C - Last Filed: 12/25/20 13:56> Narrative Exam Narrative: Benign physical exam, lungs bilaterally clear, no wheezing, rales, rhonchi. Mild bilateral lower extremity edema. Initial Vital Signs Initial Vital Signs: Vital Signs Temperature 97.6 F 12/23/20 15:58 Pulse Rate 88 12/23/20 15:58 Respiratory Rate 22 12/23/20 15:58 Blood Pressure 131/64 12/23/20 15:58 Pulse Oximetry 96 12/23/20 15:58 Const General: cooperative HENMT Head: normocephalic and atraumatic Ears: external ears normal and TM's normal bilaterally Nose: external nose normal and No nasal discharge Face and sinus: sinuses nontender, face symmetric, no sinus tenderness and No dry mucous membranes Mouth: oral mucosae normal and moist mucous membranes Teeth and gingiva: dentition normal Throat: tonsils normal and uvula midline Eyes General: appearance normal, both eyes and all related structures Eyelids: eyelids normal Conjunctivae: conjunctivae normal Sclera: sclerae normal Pupils: PERRL EOM: EOM intact bilaterally Neck Neck: normal visual inspection, trachea midline, No lymphadenopathy, No midline deformity and No JVD Lymphatic: No lymphedema Chest Chest: normal inspection of the chest Resp Effort & Inspection: normal respiratory effort, able to speak in complete sentences, no respiratory distress and no use of accessory muscles Auscultation: clear to auscultation bilaterally, no rales, no rhonchi and no wheezes Cardio Rate: regular rate Rhythm: regular rhythm Heart Sounds: no click, no gallops, no murmurs and no rubs Pulses: normal peripheral pulses GI Inspection: non-distended Palpation: soft, no hepatosplenomegaly, No guarding, No pulsatile mass and No tender Auscultation: normal bowel sounds Back/Spine/Pelvis Back: No CVA tenderness Cervical Spine: cervical ROM normal and No pain with cervical ROM Thoracic/Lumbar Spine: thoracic and lumbar spine normal to inspection Skin General: no rashes or lesions noted, No jaundice and No petechiae Neuro General: patient alert, patient oriented x3, gait normal and no focal motor deficits Speech: speech normal Extrem General: full ROM, no clubbing, cyanosis or edema, no pedal edema and no calf tenderness Psych Appearance: well kempt Mental Status: mental status grossly normal Attitude: cooperative Thought Content: normal and suicidality Judgment: judgment good <Lyubov Beavers DO - Last Filed: 12/28/20 15:47> Initial Vital Signs Initial Vital Signs: Vital Signs Temperature 97.6 F 12/23/20 15:58 Pulse Rate 88 12/23/20 15:58 Respiratory Rate 22 12/23/20 15:58 Blood Pressure 131/64 12/23/20 15:58 Pulse Oximetry 96 12/23/20 15:58 Course <Brett Estrella PA-C - Last Filed: 12/25/20 13:56> Course Course Narrative: Patient's symptoms improved with neb treatments. Patient experienced some rigors for a brief period time in the ED that resolved with warm blankets. Patient was afebrile through the ED stay. A CXR was repeated to include 2 views to r/o PNA. Xray showed some pulmonary congestion, likely d/t CHF. Patient had a prior visit to the ED when his xray showed similar pulmonary congestion secondary to CHF. Patient declined Lasix in the ED. On re-examination, patient's chest pain was easily and consistently reproducible by chest wall palpation. Gave Tylenol. Will dc home with sr[employer] system administrator f/u and ED return precautions. Patient verbalized understanding and agreed to f/u with his sr[employer] system administrator. Orders Ordered: Discontinued Medications Acetaminophen (Acetaminophen 325 Mg Tablet) 975 mg PO NOW ONE Stop: 12/23/20 20:10 Last Admin: 12/23/20 20:25 Dose: 975 mg Documented by: WYATT Albuterol/Ipratropium (Albuterol/Ipratropium 3 Ml Ampul) 3 ml INH NOW ONE Stop: 12/23/20 16:39 Last Admin: 12/23/20 16:46 Dose: 3 ml Documented by: SHEILA Albuterol/Ipratropium (Albuterol/Ipratropium 3 Ml Ampul) 3 ml INH NOW ONE Stop: 12/23/20 18:02 Last Admin: 12/23/20 19:46 Dose: 3 ml Documented by: SHEILA Methylprednisolone (Methylprednisolone 125 Mg/2 Ml Vial) 125 mg IV NOW ONE Stop: 12/23/20 18:03 Last Admin: 12/23/20 18:35 Dose: 125 mg Documented by: THUY Vital Signs Vital signs: Vital Signs - 8 hr 12/23/20 15:58 12/23/20 16:47 12/23/20 17:51 Temperature 97.6 F Pulse Rate 88 89 Respiratory Rate 22 21 Blood Pressure 131/64 Pulse Oximetry 96 96 97 12/23/20 17:52 Temperature Pulse Rate 87 Respiratory Rate 23 Blood Pressure 138/70 Pulse Oximetry 97 <Lyubov Beavers DO - Last Filed: 12/28/20 15:47> Orders Ordered: Discontinued Medications Acetaminophen (Acetaminophen 325 Mg Tablet) 975 mg PO NOW ONE Stop: 12/23/20 20:10 Last Admin: 12/23/20 20:25 Dose: 975 mg Documented by: WYATT Albuterol/Ipratropium (Albuterol/Ipratropium 3 Ml Ampul) 3 ml INH NOW ONE Stop: 12/23/20 16:39 Last Admin: 12/23/20 16:46 Dose: 3 ml Documented by: SHEILA Albuterol/Ipratropium (Albuterol/Ipratropium 3 Ml Ampul) 3 ml INH NOW ONE Stop: 12/23/20 18:02 Last Admin: 12/23/20 19:46 Dose: 3 ml Documented by: SHEILA Methylprednisolone (Methylprednisolone 125 Mg/2 Ml Vial) 125 mg IV NOW ONE Stop: 12/23/20 18:03 Last Admin: 12/23/20 18:35 Dose: 125 mg Documented by: THUY Vital Signs Vital signs: Vital Signs - 8 hr 12/23/20 15:58 12/23/20 16:47 12/23/20 17:51 Temperature 97.6 F Pulse Rate 88 89 Respiratory Rate 22 21 Blood Pressure 131/64 Pulse Oximetry 96 96 97 12/23/20 17:52 Temperature Pulse Rate 87 Respiratory Rate 23 Blood Pressure 138/70 Pulse Oximetry 97 MDM - Chest Pain <Brett Estrella PA-C - Last Filed: 12/25/20 13:56> Lab Data Lab results narrative: Labs WNL. Trop neg. Covid-19 neg Result diagrams: 12/23/20 17:24 12/23/20 17:24 Labs: Lab Results 12/23/20 12/23/20 12/23/20 Range/Units 17:24 17:24 17:24 WBC 8.8 (4.5-11.0) X10^3/uL RBC 4.89 (4.5-5.9) X10^6/uL Hgb 14.8 (13.5-17.5) g/dL Hct 44.8 (41-53) % MCV 91.7 (80-100) fL MCH 30.3 (26-34) PG MCHC 33.0 (30-36) % RDW 15.1 H (11.6-14.8) % Plt Count 163 (150-400) X10^3/uL Neut % (Auto) 80.2 H (50-75) % Lymph % (Auto) 10.3 L (25-40) % [place] % (Auto) 8.5 (3-14) % Eos % (Auto) 0.5 L (2-4) % Baso % (Auto) 0.5 (0-2) % Neut # (Auto) 7100 H (3710-4585) /uL Lymph # (Auto) 900 L (7293-4409) /uL [place] # (Auto) 800 (0-900) /uL Eos # (Auto) 0 (0-450) /uL Baso # (Auto) 0 (0-100) /uL D-Dimer (<230) ng/mL Sodium 139 (137-145) mmol/L Potassium 3.9 (3.4-5.1) mmol/L Chloride 106 (98-107) mmol/L Carbon Dioxide 26 (22-32) mmol/L BUN 32 H (9-20) mg/dL Creatinine 1.45 H (0.66-1.25) mg/dL Estimated GFR 48.7 L (>60) mL/min BUN/Creatinine Ratio 22.1 H (6-22) Glucose 81 (80-110) mg/dL Calcium 8.5 (8.4-10.2) mg/dL Total Bilirubin 0.4 (0.2-1.3) mg/dL AST 32 (17-59) IU/L ALT 34 (<50) IU/L Alkaline Phosphatase 89 (38-126) U/L Total Creatine Kinase 51 L (55-170) U/L CK-MB (CK-2) TNP CK-MB (CK-2) Rel Index TNP Troponin I < 0.012 (0.01-0.034) ng/mL NT-Pro-B Natriuret Pep 67 (<125) pg/mL Total Protein 6.8 (6.3-8.2) g/dL Albumin 4.1 (3.5-5.0) g/dL Globulin 2.7 (1.7-4.1) g/dL Albumin/Globulin Ratio 1.5 (1.0-2.8) Lipase 152 (23-300) U/L SARS-CoV-2 (PCR) (Negative) 12/23/20 12/23/20 Range/Units 18:09 18:55 WBC (4.5-11.0) X10^3/uL RBC (4.5-5.9) X10^6/uL Hgb (13.5-17.5) g/dL Hct (41-53) % MCV (80-100) fL MCH (26-34) PG MCHC (30-36) % RDW (11.6-14.8) % Plt Count (150-400) X10^3/uL Neut % (Auto) (50-75) % Lymph % (Auto) (25-40) % [place] % (Auto) (3-14) % Eos % (Auto) (2-4) % Baso % (Auto) (0-2) % Neut # (Auto) (2229-9426) /uL Lymph # (Auto) (3459-4604) /uL [place] # (Auto) (0-900) /uL Eos # (Auto) (0-450) /uL Baso # (Auto) (0-100) /uL D-Dimer < 200 (<230) ng/mL Sodium (137-145) mmol/L Potassium (3.4-5.1) mmol/L Chloride (98-107) mmol/L Carbon Dioxide (22-32) mmol/L BUN (9-20) mg/dL Creatinine (0.66-1.25) mg/dL Estimated GFR (>60) mL/min BUN/Creatinine Ratio (6-22) Glucose (80-110) mg/dL Calcium (8.4-10.2) mg/dL Total Bilirubin (0.2-1.3) mg/dL AST (17-59) IU/L ALT (<50) IU/L Alkaline Phosphatase (38-126) U/L Total Creatine Kinase (55-170) U/L CK-MB (CK-2) CK-MB (CK-2) Rel Index Troponin I (0.01-0.034) ng/mL NT-Pro-B Natriuret Pep (<125) pg/mL Total Protein (6.3-8.2) g/dL Albumin (3.5-5.0) g/dL Globulin (1.7-4.1) g/dL Albumin/Globulin Ratio (1.0-2.8) Lipase (23-300) U/L SARS-CoV-2 (PCR) Negative (Negative) Imaging Data Chest x-ray: Radiologist's Impression: PROCEDURE:? XR CHEST 1V ? INDICATIONS:? Chest pain ? TECHNIQUE:? One view of the chest was acquired.? ? COMPARISON:? [facility], CR, XR CHEST 1V, 10/08/2020, 11:11. ? FINDINGS:? ? Surgical changes and devices:? Left chest wall central venous port catheter.? Left shoulder arthroplasty. ? Lungs and pleura:? Lungs are clear.? No pleural effusions or pneumothorax.? ? Mediastinum:? Mediastinal contours appear normal.? Heart size is normal.? ? Bones and chest wall:? No suspicious bony lesions.? Overlying soft tissues appear unremarkable.? ? IMPRESSION:? No acute cardiopulmonary process demonstrated radiographically. ? ? Dictated by: Jamil Dale M.D. on 12/23/2020 at 16:50 ? ? Approved by: Jamil Dale M.D. on 12/23/2020 at 16:51 ? CXR 2V: Radiologist's Impression: PROCEDURE:? XR CHEST 2V ? INDICATIONS:? SOB, chest pain, rigors ? TECHNIQUE:? 2 views of the chest were acquired.? ? COMPARISON:? [facility], CR, XR CHEST 1V, 12/23/2020, 16:29.? Former[facility], CR, XR CHEST 2V, 11/20/2020, 8:01. ? FINDINGS:? ? Surgical changes and devices:? Left-sided port with the catheter tip in the right atrium. ?ACDF.? Left shoulder arthroplasty.? ? Lungs and pleura:? Low lung volumes.? Prominent pulmonary markings bilaterally with central predominance.? This appears increased compared to the recent prior exam.? No pleural effusions or pneumothorax.? ? Mediastinum:? Mediastinal contours are unchanged.? Heart size is within normal limits and unchanged.? ? Bones and chest wall:? No suspicious bony abnormalities.? Soft tissues appear unremarkable.? ? IMPRESSION:? Prominent pulmonary markings bilaterally with a central predominance.? This appears increased in the short-term interval.? This could be due to volume overload/CHF. ? ? Dictated by: Enoc Wan M.D. on 12/23/2020 at 18:45 ? ? Approved by: Enoc Wan M.D. on 12/23/2020 at 18:52 ? ECG Data Interpretation: NSR, no ST-T changes. MDM Narrative Medical decision making narrative: 65-year-old male with past medical history AFib, migraine, hyperlipidemia, hypothyroidism, CVA, COPD presents to the ED with 1 day of chest pain, shortness of breath. Concern for ACS versus acute CHF versus COPD exacerbation versus COVID-19 infection versus other viral pneumonia versus PE. Will order labs, chest x-ray, troponin, BNP, EKG, COVID-19 test, D-dimer. Will give albuterol/ipratropium DuoNeb, methylprednisolone. Will reassess. <Lyubov Beavers, DO - Last Filed: 12/28/20 15:47> Lab Data Labs: Lab Results 12/23/20 12/23/20 12/23/20 Range/Units 17:24 17:24 17:24 WBC 8.8 (4.5-11.0) X10^3/uL RBC 4.89 (4.5-5.9) X10^6/uL Hgb 14.8 (13.5-17.5) g/dL Hct 44.8 (41-53) % MCV 91.7 (80-100) fL MCH 30.3 (26-34) PG MCHC 33.0 (30-36) % RDW 15.1 H (11.6-14.8) % Plt Count 163 (150-400) X10^3/uL Neut % (Auto) 80.2 H (50-75) % Lymph % (Auto) 10.3 L (25-40) % [place] % (Auto) 8.5 (3-14) % Eos % (Auto) 0.5 L (2-4) % Baso % (Auto) 0.5 (0-2) % Neut # (Auto) 7100 H (3043-2531) /uL Lymph # (Auto) 900 L (8796-4181) /uL [place] # (Auto) 800 (0-900) /uL Eos # (Auto) 0 (0-450) /uL Baso # (Auto) 0 (0-100) /uL D-Dimer (<230) ng/mL Sodium 139 (137-145) mmol/L Potassium 3.9 (3.4-5.1) mmol/L Chloride 106 (98-107) mmol/L Carbon Dioxide 26 (22-32) mmol/L BUN 32 H (9-20) mg/dL Creatinine 1.45 H (0.66-1.25) mg/dL Estimated GFR 48.7 L (>60) mL/min BUN/Creatinine Ratio 22.1 H (6-22) Glucose 81 (80-110) mg/dL Calcium 8.5 (8.4-10.2) mg/dL Total Bilirubin 0.4 (0.2-1.3) mg/dL AST 32 (17-59) IU/L ALT 34 (<50) IU/L Alkaline Phosphatase 89 (38-126) U/L Total Creatine Kinase 51 L (55-170) U/L CK-MB (CK-2) TNP CK-MB (CK-2) Rel Index TNP Troponin I < 0.012 (0.01-0.034) ng/mL NT-Pro-B Natriuret Pep 67 (<125) pg/mL Total Protein 6.8 (6.3-8.2) g/dL Albumin 4.1 (3.5-5.0) g/dL Globulin 2.7 (1.7-4.1) g/dL Albumin/Globulin Ratio 1.5 (1.0-2.8) Lipase 152 (23-300) U/L SARS-CoV-2 (PCR) (Negative) 12/23/20 12/23/20 Range/Units 18:09 18:55 WBC (4.5-11.0) X10^3/uL RBC (4.5-5.9) X10^6/uL Hgb (13.5-17.5) g/dL Hct (41-53) % MCV (80-100) fL MCH (26-34) PG MCHC (30-36) % RDW (11.6-14.8) % Plt Count (150-400) X10^3/uL Neut % (Auto) (50-75) % Lymph % (Auto) (25-40) % [place] % (Auto) (3-14) % Eos % (Auto) (2-4) % Baso % (Auto) (0-2) % Neut # (Auto) (2138-1010) /uL Lymph # (Auto) (8326-3067) /uL [place] # (Auto) (0-900) /uL Eos # (Auto) (0-450) /uL Baso # (Auto) (0-100) /uL D-Dimer < 200 (<230) ng/mL Sodium (137-145) mmol/L Potassium (3.4-5.1) mmol/L Chloride (98-107) mmol/L Carbon Dioxide (22-32) mmol/L BUN (9-20) mg/dL Creatinine (0.66-1.25) mg/dL Estimated GFR (>60) mL/min BUN/Creatinine Ratio (6-22) Glucose (80-110) mg/dL Calcium (8.4-10.2) mg/dL Total Bilirubin (0.2-1.3) mg/dL AST (17-59) IU/L ALT (<50) IU/L Alkaline Phosphatase (38-126) U/L Total Creatine Kinase (55-170) U/L CK-MB (CK-2) CK-MB (CK-2) Rel Index Troponin I (0.01-0.034) ng/mL NT-Pro-B Natriuret Pep (<125) pg/mL Total Protein (6.3-8.2) g/dL Albumin (3.5-5.0) g/dL Globulin (1.7-4.1) g/dL Albumin/Globulin Ratio (1.0-2.8) Lipase (23-300) U/L SARS-CoV-2 (PCR) Negative (Negative) Discharge Plan Departure Patient Disposition: Home Clinical Impression: Chest pain Qualifiers: Chest pain type: unspecified Qualified Code(s): R07.9 - Chest pain, unspecified Instructions: DI for Chest Pain Activity Restrictions/Additional Instructions: You were evaluated in the ED today for chest pain. Your labs, EKG were normal. Your x-ray did show some evidence of mild congestive heart failure. Follow-up with your [employer] system administrator as soon as possible. There was no evidence of acute cardiopulmonary disease from today's workup. Your chest pain is also reproducible by pushing on your chest wall, which is very reassuring, and most likely musculoskeletal in origin. You may take Tylenol for pain. To the ED if you experience increasing chest pain, shortness of breath. Prescriptions: No Action sumatriptan succinate 100 mg tablet 100 mg PO BID PRN (Reason: Headache) RF: 0 cholecalciferol (vitamin D3) 10 mcg (400 unit) capsule 10 mcg PO DAILY RF: 0 liothyronine 25 mcg tablet 5 mcg PO DAILY RF: 0 Hold Instructions: Overtreatment armodafinil [Nuvigil] 250 mg tablet 125 mg PO ONCE PRN (Reason: as directed) RF: 0 Trelegy Ellipta 200-62.5-25 mcg blister with device 1 inh inhalation DAILY RF: 0 Breo Ellipta 200 MCG/25 MCG blister with device 1 puff INH DAILY Qty: 0 RF: 0 Combivent Respimat 4 GM mist See Rx Instructions .ROUTE .COMPLEX MDD 6 Qty: 0 RF: 0 albuterol sulfate 1.25 MG/3 ML solution for nebulization 1.25 mg INH Q4HP PRN (Reason: Shortness Of Breath) Qty: 0 RF: 0 levothyroxine 100 mcg tablet 100 mcg PO QAM Qty: 90 RF: 3 tamsulosin 0.4 mg capsule 0.4 mg PO DAILY Qty: 90 RF: 3 montelukast [Singulair] 10 mg tablet 10 mg PO BEDTIME Qty: 90 RF: 3 bupropion HCl 300 mg tablet extended release 24 hr See Rx Instructions .ROUTE .COMPLEX Qty: 90 RF: 3 sumatriptan 20 mg/actuation spray,non-aerosol 20 mg NASAL ONCE Qty: 6 RF: 3 prochlorperazine maleate 10 mg tablet 10 mg PO Q8H PRN (Reason: nausea and vomiting) Qty: 90 RF: 1 metoprolol tartrate 25 mg tablet 12.5 mg PO BID Qty: 90 RF: 3 lithium carbonate 300 mg tablet extended release 900 mg PO BEDTIME Qty: 270 RF: 3 lurasidone 20 mg tablet 20 mg PO DAILY Qty: 30 RF: 1 clonazepam 1 mg tablet 2 mg PO TID Qty: 180 RF: 0 zolpidem 10 mg tablet 10 mg PO BEDTIME Qty: 30 RF: 0 ketoconazole 2 % shampoo See Rx Instructions .ROUTE .COMPLEX Qty: 360 RF: 5 calcium citrate 250 mg calcium tablet 500 mg PO BID RF: 0 (DME) Disabled Parking Qty: 1 RF: 0 loratadine [Claritin] 10 mg tablet 10 mg PO DAILY Qty: 10 RF: 0 codeine sulfate 15 mg tablet 15 mg PO Q6H PRN (Reason: cough) Qty: 10 RF: 0 albuterol sulfate 1.25 mg/3 mL solution for nebulization 1.25 mg inhalation Q4-6H PRN (Reason: shortness of breath or wheezing) Qty: 75 RF: 0 loratadine [Claritin] 10 mg tablet 10 mg PO DAILY PRN (Reason: allergy symptoms) Qty: 20 RF: 0 furosemide [Lasix] 40 mg tablet 40 mg PO DAILY Qty: 4 RF: 0 desonide 0.05 % cream 1 applic Topical PRN PRN (Reason: Inflammation) RF: 0 Vitamin B-12 1 tab PO DAILY RF: 0 clobetasol 0.05 % ointment 1 applic Topical SUSA PRN (Reason: Rash) RF: 0 multivitamin Tablet 1 tab PO TID RF: 0 Eliquis 5 mg tablet 5 mg PO BID RF: 0 Referrals: Joanie Miller MD [Primary Care Provider] - <Lyubov Beavers DO - Last Filed: 12/28/20 15:47> Cosign ED Attending Cosignature Attestation: I was immediately available in the department for consultation. Documentation has been reviewed.
[2020-12-23 18:34] LABS: NT-proBNP (BNP-Adult 18+) 67 pg/mL (<125)
[2020-12-23] MEDS: methylPREDNISolone 125 MG/2 ML VIAL IV (18:35)
--- NOTE | 2020-12-23 19:02 | DI.RAD.S_ITS ---
PROCEDURE: XR CHEST 2V INDICATIONS: SOB, chest pain, rigors TECHNIQUE: 2 views of the chest were acquired. COMPARISON: [facility], CR, XR CHEST 1V, 12/23/2020, 16:29. [facility], CR, XR CHEST 2V, 11/20/2020, 8:01. FINDINGS: Surgical changes and devices: Left-sided port with the catheter tip in the right atrium. ACDF. Left shoulder arthroplasty. Lungs and pleura: Low lung volumes. Prominent pulmonary markings bilaterally with central predominance. This appears increased compared to the recent prior exam. No pleural effusions or pneumothorax. Mediastinum: Mediastinal contours are unchanged. Heart size is within normal limits and unchanged. Bones and chest wall: No suspicious bony abnormalities. Soft tissues appear unremarkable. IMPRESSION: Prominent pulmonary markings bilaterally with a central predominance. This appears increased in the short-term interval. This could be due to volume overload/CHF. Dictated by: Enoc Wan M.D. on 12/23/2020 at 18:45 Approved by: Enoc Wan M.D. on 12/23/2020 at 18:52
[2020-12-23 19:28] LABS: COVID19 -Nasal RAPID Negative (Negative)
[2020-12-23 19:35] LABS: D Dimer < 200 ng/mL (<230)
[2020-12-23] MEDS: ACETAMINOPHEN 325 MG TABLET 975 MG PO (20:25)
--- NOTE | 2020-12-23 20:53 | PC.NURSE ---
Linda removed iv port access per protocol.
== END 2020-12-23 20:35 | disposition home or self-care (01) ==
PROVIDERS: Emergency Medicine; Emergency Provider Student in an Organized Health Care Education/Training Program; PCP Internal Medicine
DX: R07.9 Chest pain, unspecified (principal); R06.02 Shortness of breath; Z20.822 Contact with and (suspected) exposure to COVID-19
CPT/HCPCS: 36415; 71045; 71046; 80053; 82550; 83690; 83880; 84484; 85025; 85379; 87635; 93005; 93010; 94640; 96374; 99284; C9803; J1642; J2930

== ENCOUNTER → 2021-02-24 09:59 | Outpatient (CLI) | payer MEDICARE, SELFPAY ==
[2021-01-14 10:10] VITALS: BMI 34.4
[2021-02-24 11:00] LABS: INR 1.2 (0.9-1.3); Prothrombin Time 13.6 SECONDS (10.1-12.7)
[2021-02-24 11:01] LABS: Add Manual Diff / Slide Review NO; Basophils Absolute Auto 0 /uL (0-100); Basophils Percent Auto 0.4 % (0-2); Eosinophils Absolute Auto 0 /uL (0-450); Eosinophils Percent Auto 0.3 % (2-4); Hematocrit 47.3 % (41-53); Hemoglobin 15.8 g/dL (13.5-17.5); Lymphocytes Absolute Auto 1400 /uL (1100-4500); Lymphocytes Percent Auto 17.5 % (25-40); Mean Corpuscular HGB Conc 33.3 % (30-36); Mean Corpuscular Hemoglobin 30.1 PG (26-34); Mean Corpuscular Volume 90.3 fL (80-100); Monocytes Absolute Auto 800 /uL (0-900); Monocytes Percent Auto 9.6 % (3-14); Neutrophils Absolute Auto 5700 /uL (1500-7000); Neutrophils Percent Auto 72.2 % (50-75); Platelet Count 176 X10^3/uL (150-400); Red Blood Cell Count 5.24 X10^6/uL (4.5-5.9); Red Cell Distribution Width 15.5 % (11.6-14.8); White Blood Cell Count 7.8 X10^3/uL (4.5-11.0)
[2021-02-24 11:03] LABS: PTT Partial Thromboplastin Tim 35 SECONDS (26.4-36.2)
[2021-02-24 11:20] LABS: BUN Creatinine Ratio 15.3 (6-22); Blood Urea Nitrogen 20 mg/dL (9-20); Carbon Dioxide 31 mmol/L (22-32); Chloride 104 mmol/L (98-107); Estimated Glomerular Filt Rate 54.6 mL/min (>60); Glucose 83 mg/dL (80-110); HEMOLYSIS < 15 (0-50); Potassium 4.4 mmol/L (3.4-5.1); Sodium 140 mmol/L (137-145)
[2021-02-24 19:43] LABS: TSH w/ Reflex to FT4 0.34 uIU/mL (0.47-4.68)
== END ==
PROVIDERS: PCP Internal Medicine; Referring Provider Orthopaedic Surgery Orthopaedic Surgery of the Spine; Visit Provider Orthopaedic Surgery Orthopaedic Surgery of the Spine
DX: Z01.818 Encounter for other preprocedural examination (principal); Z51.81 Encounter for therapeutic drug level monitoring; R73.9 Hyperglycemia, unspecified; E03.9 Hypothyroidism, unspecified; Z01.812 Encounter for preprocedural laboratory examination
CPT/HCPCS: 36415; 80048; 83036; 84439; 84443; 85025; 85610; 85730; 93005

== ENCOUNTER → 2021-03-13 10:38 | Outpatient (CLI) | payer MEDICARE, SELFPAY ==
[2021-01-14 10:10] VITALS: BMI 34.4
--- NOTE | 2021-03-13 10:46 | DI.CT.S_ITS ---
PROCEDURE: CT LUMBAR SPINE WO CON INDICATIONS: Low back pain, unspecified TECHNIQUE: Noncontrast 3 mm thick sections acquired from the T12 level to the sacrum. Sagittal and coronal reformats were constructed. 0.8 mm preoperative axial images are reconstructed. For radiation dose reduction, the following was used: automated exposure control. COMPARISON: [facility] [place], RF, LUMBAR RHIZOTOMY, 01/06/2021, 8:07. [facility], CR, XR LUMBAR SPINE WITH OLBIQUES PLUS FLEXION EXTENSION, 12/22/2020, 8:25. [facility], MR, MR LUMBAR SPINE WO/W CON, 08/01/2019, 14:55. FINDINGS: Image quality: Excellent. Bones: No acute vertebral body compression fractures. No suspicious lytic or blastic bony lesions. No pars defects. Minimal levoconvex scoliotic curvature is seen. No focal AP alignment abnormality is seen. T12-L1: No significant abnormality is seen. L1-L2: The disc height is well preserved. Mild to moderate disc bulge is seen. There is mild to moderate bilateral neural foraminal narrowing seen. Mild central canal narrowing is seen. L2-L3: The disc height is well preserved. Remote appearing Schmorl's nodes can be seen along the inferior endplate of L2 and the superior endplate of L3. Moderate disc bulge is seen, which is eccentric to the left. There is a left foraminal disc protrusion seen. Posteriorly projected endplate osteophytes are seen. There is moderate left-sided and minimal right-sided neural foraminal narrowing seen. Mild central canal narrowing is seen. L3-L4: The disc height is well preserved. Moderate disc bulge is seen. There is a superimposed central disc protrusion. Mild facet joint hypertrophy is seen. Mild bilateral neural foraminal narrowing is seen. Moderate central canal narrowing is seen. L4-L5: At least moderate loss of disc height and disc signal can be seen on the left side. Endplate irregularity and sclerosis can be seen. Vacuum disc phenomenon is seen at this level. Posteriorly projected endplate osteophytes are seen. Mild facet joint hypertrophy is seen. Moderate bilateral neural foraminal narrowing can be seen at this level. Mild central canal narrowing is seen. L5-S1: At least moderate loss of disc height can be seen posteriorly. Vacuum disc phenomenon is seen at this level. At least moderate disc bulge is seen. Moderate to prominent facet hypertrophy is seen at this level. There is moderate to severe left-sided and at least moderate right-sided neural foraminal narrowing seen. No significant central canal narrowing is seen. Soft tissues: No retroperitoneal masses or hematomas. Visualized aorta is normal in caliber. Cholecystectomy clips are seen. There is partial visualization of a moderate density cyst seen at the superior pole of the right kidney that measures 4.3 cm. IMPRESSION: Multiple levels of lumbar spine degenerative change are seen, which are worst inferiorly. The degenerative changes are similar to the prior MRI. Minimal levoconvex scoliotic curvature. Incidental note is made of: Simple appearing right renal cyst Atherosclerotic calcification Dictated by: Dayne Desai M.D. on 03/13/2021 at 14:01 Approved by: Dayne Desai M.D. on 03/13/2021 at 14:08
== END ==
PROVIDERS: PCP Internal Medicine; Referring Provider Orthopaedic Surgery Orthopaedic Surgery of the Spine; Visit Provider Orthopaedic Surgery Orthopaedic Surgery of the Spine
DX: M47.816 Spondylosis without myelopathy or radiculopathy, lumbar region (principal); M47.817 Spondylosis without myelopathy or radiculopathy, lumbosacral region; M54.50 Low back pain, unspecified; N28.1 Cyst of kidney, acquired
CPT/HCPCS: 72131

== ENCOUNTER → 2021-03-18 08:59 | Outpatient (CLI) | payer MEDICARE, SELFPAY ==
[2021-01-14 10:10] VITALS: BMI 34.4
--- NOTE | 2021-03-18 | DI.US.S_ITS ---
PROCEDURE: US ABD AORTA ANEURYSM SCREEN INDICATIONS: SCREENING TECHNIQUE: Real time scanning was performed of the aorta and iliac arteries, with image documentation. COMPARISON: [facility], CT, CT ABDOMEN PELVIS W CON, 11/10/2018, 11:48. FINDINGS: Aorta: Proximal aortic is not well visualized. Mid-aorta measures 2.1 cm. Distal aortic diameter is 1.9 cm. Iliac arteries: Right common iliac artery measures 1.5 cm. Left common iliac artery measures 1.8 cm. Other: Hypoechoic lesion is seen in the right upper pole, measuring up to 3.5 cm, most consistent with a cyst. IMPRESSION: No sonographic evidence of abdominal aortic aneurysm. Consider 5 year follow-up as clinically warranted. Dictated by: Pan Shay M.D. on 03/18/2021 at 9:48 Approved by: Pan Shay M.D. on 03/18/2021 at 9:53
== END ==
PROVIDERS: PCP Internal Medicine; Referring Provider Internal Medicine; Visit Provider Internal Medicine
DX: Z13.6 Encounter for screening for cardiovascular disorders (principal); R39.9 Unspecified symptoms and signs involving the genitourinary system
CPT/HCPCS: 51798; 76706; 81002; 99214

== ENCOUNTER 2021-04-20 10:15 | Outpatient (RCR) | payer MEDICARE, SELFPAY ==
[2019-09-30 20:07] VITALS: BMI 34.4
[2020-12-10 14:44] VITALS: BMI 34.4
== END 2021-04-20 12:15 ==
LOC: PUL 10:15
PROVIDERS: PCP Internal Medicine; Referring Provider Internal Medicine Critical Care Medicine; Visit Provider Internal Medicine Critical Care Medicine
DX: J45.40 Moderate persistent asthma, uncomplicated (principal)
CPT/HCPCS: G0237; G0238; G0424

== ENCOUNTER → 2021-06-03 08:18 | Outpatient (CLI) | payer MEDICARE, SELFPAY ==
[2021-03-18 13:58] VITALS: BMI 34.4
[2021-06-03 09:39] LABS: Add Manual Diff / Slide Review NO; Basophils Absolute Auto 0 /uL (0-100); Basophils Percent Auto 0.4 % (0-2); Eosinophils Absolute Auto 0 /uL (0-450); Eosinophils Percent Auto 0.5 % (2-4); Hematocrit 47.3 % (41-53); Hemoglobin 15.6 g/dL (13.5-17.5); Lymphocytes Absolute Auto 1200 /uL (1100-4500); Lymphocytes Percent Auto 18.1 % (25-40); Mean Corpuscular Volume 93.9 fL (80-100); Monocytes Absolute Auto 700 /uL (0-900); Monocytes Percent Auto 10.3 % (3-14); Neutrophils Absolute Auto 4800 /uL (1500-7000); Neutrophils Percent Auto 70.7 % (50-75); Platelet Count 189 X10^3/uL (150-400); Red Blood Cell Count 5.03 X10^6/uL (4.5-5.9); White Blood Cell Count 6.8 X10^3/uL (4.5-11.0)
[2021-06-03 09:50] LABS: Alanine Aminotransferase 29 IU/L (<50); Albumin 4.5 g/dL (3.5-5.0); Albumin Globulin Ratio 1.5 (1.0-2.8); Alkaline Phosphatase 78 U/L (38-126); Aspartate Aminotransferase 30 IU/L (17-59); BUN Creatinine Ratio 15.5 (6-22); Bilirubin Total 0.6 mg/dL (0.2-1.3); Blood Urea Nitrogen 20 mg/dL (9-20); Calcium 9.6 mg/dL (8.4-10.2); Carbon Dioxide 30 mmol/L (22-32); Chloride 105 mmol/L (98-107); Estimated Glomerular Filt Rate 55.6 mL/min (>60); Glucose 92 mg/dL (80-110); HEMOLYSIS 16 (0-50); Potassium 4.4 mmol/L (3.4-5.1); Sodium 141 mmol/L (137-145); Total Protein 7.5 g/dL (6.3-8.2)
[2021-06-03 11:51] LABS: TSH w/ Reflex to FT4 0.52 uIU/mL (0.47-4.68)
== END ==
PROVIDERS: PCP Internal Medicine; Referring Provider Psychiatry & Neurology Psychiatry; Visit Provider Psychiatry & Neurology Psychiatry
DX: Z01.818 Encounter for other preprocedural examination (principal); F31.9 Bipolar disorder, unspecified; F41.9 Anxiety disorder, unspecified; F43.10 Post-traumatic stress disorder, unspecified; Z98.890 Other specified postprocedural states
CPT/HCPCS: 36415; 80053; 84443; 85025; 93005; 99214

== ENCOUNTER → 2021-06-15 07:46 | Outpatient (CLI) | payer MEDICARE, SELFPAY ==
[2021-03-18 13:58] VITALS: BMI 34.4
[2021-06-15 09:16] LABS: Lithium 0.6 mmol/L (0.6-1.2)
[2021-06-15 09:42] LABS: Prostate Specific Antigen Scrn 1.15 ng/mL (0.1-4.0)
== END ==
PROVIDERS: Specialist; PCP Internal Medicine; Referring Provider Psychiatry & Neurology Psychiatry; Visit Provider Psychiatry & Neurology Psychiatry
DX: R97.20 Elevated prostate specific antigen [PSA] (principal); F31.9 Bipolar disorder, unspecified; Z79.899 Other long term (current) drug therapy
CPT/HCPCS: 36415; 80178; 84153; G0103

== ENCOUNTER → 2021-06-30 08:55 | Outpatient (CLI) | payer MEDICARE, SELFPAY ==
[2021-03-18 13:58] VITALS: BMI 34.4
[2021-06-30 11:08] LABS: COVID19 -Nasal RAPID Negative (Negative)
== END ==
PROVIDERS: PCP Internal Medicine; Visit Provider Surgery
DX: Z01.812 Encounter for preprocedural laboratory examination (principal); Z20.822 Contact with and (suspected) exposure to COVID-19
CPT/HCPCS: 87635

== ENCOUNTER 2021-07-01 06:35 | Day surgery (SDC) | payer MEDICARE, SELFPAY ==
[2021-03-18 13:58] VITALS: BMI 34.4
[2021-07-01] VITALS (7 sets, daily range): BP systolic 115–137; BP diastolic 73–88; PULSE 66–72; RESP 13–18; TEMP 36.2–36.9; O2SAT 93–98; BMI 37.5
[2021-07-01] MEDS: LACTATED RINGERS 1,000 ML 200 ML IV (07:31)
--- NOTE | 2021-07-01 07:40 | PM.PREOP ---
Pre-operative Note Interval Note History & Physical reviewed/Exam performed by Physician: Yes Changes to H&P: No
--- NOTE | 2021-07-01 08:14 | PM.OP.COLON ---
Operative Date/Time/Diagnoses Date of procedure: 07/01/21 Time of procedure: 08:14 Pre-op diagnosis: Screening colonoscopy Post-op diagnosis: same Procedure & Clinicians Study performed: Colonoscopy Same procedure as scheduled: Yes Indications: Screening. High anesthetic risk secondary to COPD, history tracheostomy stroke and numerous abdominal surgeries Surgeon: Jeffrey Monk Procedure Notes Procedure in detail: The history and physical was performed/updated and the patient is ASA class is 3. The procedure was discussed in detail with the patient. Potential risks complications including infection, bleeding, missed diagnosis, perforation, need for surgery, and were explained. Their questions were answered and informed consent was obtained. Patient was brought to the procedure room and placed standard monitoring equipment. The patient's vital signs were monitored continuously throughout the entire procedure. Prior to starting time-out was performed. The patient was placed in the left lateral recumbent position. Sedation was administered by Anesthesia Examination began with a thorough inspection of the perianal area there was no evidence of fissures, fistulae, external hemorrhoids or cutaneous malignancy. The colonoscopy scope was then placed into the anal canal and was advanced to the cecum, which was identified by the ileocecal valve, the appendiceal orifice and the confluence of the taenia. The scope was then slowly withdrawn examining colon thoroughly in all directions, irrigating it of any residual stool. FINDINGS 1. No masses or polyps 2. Scattered diverticuli The patient tolerated the procedure well. They will be discharged once criteria are met. The prep was of fair/poor quality. The withdrawl time was 7 minutes. Specimen(s): none sent Complications: none Impression: Normal colonoscopy Post-procedure Recommendations: High fiber diet Disposition: same day surgery
== END 2021-07-01 08:50 | disposition home or self-care (01) ==
PROVIDERS: PCP Internal Medicine; Referring Provider Surgery; Visit Provider Surgery
PROC: 0DJD8ZZ Inspection of Lower Intestinal Tract, Via Natural or Artificial Opening Endoscopic (ICD-10-PCS; CPT 45378; principal; 2021-07-01 07:45)
DX: Z12.11 Encounter for screening for malignant neoplasm of colon (principal); J44.9 Chronic obstructive pulmonary disease, unspecified; Z86.73 Personal history of transient ischemic attack (TIA), and cerebral infarction without residual deficits; K57.30 Diverticulosis of large intestine without perforation or abscess without bleeding
CPT/HCPCS: G0105; J1642; J2250; J2704; J3010

== ENCOUNTER 2022-09-13 10:39 | Emergency (ER) | payer MEDICARE, SELFPAY ==
[2021-03-18 13:58] VITALS: BMI 34.4
[2022-09-13 10:49] VITALS: BP 167/86; PULSE 83; RESP 18; TEMP 36.8; O2SAT 98; BMI 32.7
--- NOTE | 2022-09-13 11:02 | DI.CT.S_ITS ---
PROCEDURE: CT CHEST ABD PEL W CON INDICATIONS: LUQ, back pain TECHNIQUE: After the administration of oral and intravenous contrast, axial sections acquired from the supraclavicular neck to the pubic symphysis. Coronal and sagittal reformats were performed. For radiation dose reduction, the following was used: automated exposure control, adjustment of mA and/or kV according to patient size. COMPARISON: [facility], CT, CT ABDOMEN PELVIS W CON, 11/10/2018, 11:48. [facility], CT, CT CHEST WITH CONTRAST, 10/19/2020, 14:43. FINDINGS: Image quality: Excellent. CHEST: Lower Neck: No enlarged lymph nodes. Thyroid: Within normal limits. Axillae: No enlarged lymph nodes. Chest Wall: Unremarkable. Lungs and Airways: Bibasilar atelectasis. No consolidation. Airways are clear. No mass or significant pulmonary nodules. Left upper lobe pulmonary nodule measuring 0.4 cm, (6/173), unchanged. Pleura: No pneumothorax or pleural effusions. Heart: Heart size is normal. Moderate to severe LAD coronary artery calcifications are seen. No pericardial effusion. Thoracic Vessels: No aortic aneurysm. No aortic dissection. The aorta and pulmonary arteries demonstrate normal size. No central pulmonary embolism. Mediastinum and Haily: No enlarged lymph nodes. Esophagus: No wall thickening. Small hiatal hernia. ABDOMEN: Liver: No focal lesion. Gallbladder: Absent. Biliary ducts: Unremarkable. Pancreas: Enhances uniformly. No peripancreatic fluid collection. Spleen: Small calcified granuloma. No splenomegaly. Adrenal Glands: Right adrenal nodule measuring 0.9 cm, (3/59) unchanged since at least 2019 suggesting a benign etiology. Kidneys and Ureters: No hydronephrosis. Small peripelvic cysts. Stomach and Bowel: Stomach, small bowel loops, and colon are unremarkable. Normal appendix. Peritoneum: No abnormal intraperitoneal fluid. No free air. Ventral Wall: No hernia. Small left lateral lumbar hernia or lipoma. Abdominal Nodes: No retroperitoneal or mesenteric adenopathy by size criteria. Vessels: Aorta and inferior vena cava are normal in size. Moderate calcified plaque. PELVIS: Pelvic Organs: Unremarkable. Bladder: No stone. Pelvic Nodes: No enlarged lymph nodes. Miscellaneous: Small fat containing left inguinal hernia. Bones: No suspicious lesion. Small bone islands. DDD. IMPRESSION: 1. Source for left upper quadrant pain is not identified. No aortic dissection. No free fluid. 2. Small hiatal hernia. 3. Moderate DDD. Dictated by: Enoc Wan M.D. on 09/13/2022 at 11:36 Approved by: Enoc Wan M.D. on 09/13/2022 at 12:04
[2022-09-13 11:03] LABS: Add Manual Diff / Slide Review NO; Basophils Absolute Auto 100 /uL (0-100); Basophils Percent Auto 0.7 % (0-2); Eosinophils Absolute Auto 100 /uL (0-450); Eosinophils Percent Auto 0.6 % (2-4); Hematocrit 47.3 % (41-53); Hemoglobin 16.2 g/dL (13.5-17.5); Lymphocytes Absolute Auto 1700 /uL (1100-4500); Lymphocytes Percent Auto 19.1 % (25-40); Mean Corpuscular HGB Conc 34.2 % (30-36); Mean Corpuscular Hemoglobin 32.4 PG (26-34); Mean Corpuscular Volume 94.9 fL (80-100); Monocytes Absolute Auto 800 /uL (0-900); Neutrophils Absolute Auto 6200 /uL (1500-7000); Neutrophils Percent Auto 70.6 % (50-75); Platelet Count 193 X10^3/uL (150-400); Red Blood Cell Count 4.98 X10^6/uL (4.5-5.9); Red Cell Distribution Width 14.3 % (11.6-14.8); White Blood Cell Count 8.8 X10^3/uL (4.5-11.0)
[2022-09-13 11:05] VITALS: PULSE 91; O2SAT 99
--- NOTE | 2022-09-13 11:07 | ED.ABDPAIN ---
HPI - Abdominal Pain <Brett Estrella PA-C - Last Filed: 09/13/22 13:08> General Chief Complaint: Abdominal Pain Stated Complaint: SENT BY [facility]/ R/abd pain in side and back Time Seen by Provider: 09/13/22 10:50 Source: patient Mode of arrival: Ambulatory History of Present Illness HPI narrative: 67-year-old male with past medical history CVA, AFib, essential hypertension, BPH, VICTOR MANUEL, bipolar depression, anxiety, PTSD, COPD presents to the ED with 10 days of left-sided upper quadrant pain that radiates to the back. Patient endorses mild nausea, denies vomiting. Patient denies fever, chills, chest pain, shortness of breath, dysuria, urinary frequency, urinary urgency, diarrhea, constipation, hematochezia, melena, lightheadedness, dizziness, syncope. Patient has a distant history of gastric bypass surgery, cholecystectomy due to pancreatitis. Patient denies current tobacco use, marijuana, other recreational drugs. Patient states that he drinks alcohol about 5 or 6 times a year. Patient has a distant history of smoking 35 years ago. Patient has a history of COPD that he does not take any medications for currently. Related Data Home Medications Medication Instructions Recorded Confirmed ipratropium 20 mcg-albuterol 100 See Rx Instructions .Route 04/15/17 04/22/22 mcg/actuation mist for inhalation .COMPLEX ##0 (Combivent Respimat) Vitamin B-12 1 tab PO DAILY 02/21/18 04/22/22 apixaban 5 mg tablet (Eliquis) 5 mg PO BID 05/30/18 04/22/22 cholecalciferol (vitamin D3) 10 10 mcg PO DAILY 02/06/20 04/22/22 mcg (400 unit) capsule sumatriptan succinate 100 mg tablet 100 mg PO BID PRN Headache 02/06/20 04/22/22 fluticasone fur. 200 mcg-umeclid 1 inh inhalation DAILY 11/19/20 04/22/22 62.5 mcg-vilant 25 mcg inhalat.powder (Trelegy Ellipta) calcium citrate 1,000 mg PO DAILY 03/26/21 04/22/22 multivitamin 1 tab PO BID 03/24/22 04/22/22 Previous Rx's Medication Instructions Recorded Disabled Parking #1 ea 08/02/19 ketoconazole 2 % shampoo See Rx Instructions .Route 11/30/19 .COMPLEX #360 mL levothyroxine 100 mcg tablet 100 mcg PO QAM #90 tabs 04/16/20 montelukast 10 mg tablet 10 mg PO BEDTIME #90 tabs 04/16/20 (Singulair) sumatriptan 20 mg/actuation nasal 20 mg intranasal ONCE #6 ea 05/23/20 spray prochlorperazine maleate 10 mg 10 mg PO Q8H PRN nausea and 05/26/20 tablet vomiting #90 tabs albuterol sulfate 1.25 mg/3 mL 1.25 mg (3 mL) inhalation Q4-6H 10/08/20 solution for nebulization PRN shortness of breath or wheezing #75 mL metoprolol tartrate 25 mg tablet 12.5 mg PO BID #30 tabs 10/05/21 clonazepam 2 mg tablet 2 mg PO TID PRN see below #270 tabs 04/06/22 lithium carbonate 300 mg 600 mg PO BEDTIME #180 tabs 05/25/22 tablet,extended release lurasidone 60 mg tablet (Latuda) 60 mg PO DAILY #90 tabs 06/08/22 bupropion HCl 300 mg 24 hr tablet, See Rx Instructions .Route 06/17/22 extended release .COMPLEX #90 tabs methylphenidate HCl 20 mg 20 mg PO DAILY #30 tabs 06/28/22 tablet,extended release suvorexant 20 mg tablet 20 mg PO BEDTIME #30 tabs 06/28/22 Allergies Allergy/AdvReac Type Severity Reaction Status Date / Time amoxicillin Allergy Severe Face, Verified 04/22/22 10:57 chest, upper back - beat red. Welts. doxycycline [DOXYCYCLINE] Allergy Mild ITCHING Verified 04/22/22 10:57 ketorolac [KETOROLAC] Allergy Unknown Verified 04/22/22 10:57 NSAIDS (Non-Steroidal AdvReac Unknown TO AVOID Verified 04/22/22 10:57 Anti-Inflamma R/T [NSAIDS (NON-STEROIDAL GASTRIC ANTI-INFLAMMA] BYPASS controlled substance AdvReac Uncoded 04/22/22 10:57 agreement Review of Systems <Brett Estrella PA-C - Last Filed: 09/13/22 13:08> Review of Systems ROS Unobtainable: All systems reviewed & are unremarkable except as noted in HPI and below Constitutional Constitutional: Denies chills, Denies fatigue, Denies fever(s), Denies frequent falls, Denies lethargy and Denies weakness Eyes Eyes: Denies change in vision, Denies eye discharge, Denies irritation and Denies loss of vision ENT Ears, Nose, Mouth, and Throat: Denies change in voice, Denies dizziness, Denies neck pain, Denies sore throat and Denies throat swelling Cardiovascular Cardiovascular: Denies chest pain, Denies irregular heart rhythm, Denies lightheadedness, Denies palpitations, Denies dyspnea, Denies dyspnea on exertion and Denies orthopnea Respiratory Respiratory: Denies cough, Denies dyspnea, Denies dyspnea on exertion and Denies wheezing Gastrointestinal Gastrointestinal: Reports abdominal pain, Denies change in bowel habits, Denies diarrhea, Reports nausea and Denies vomiting Genitourinary Genitourinary: Denies hematuria, Denies flank pain, Denies urinary incontinence and Denies urinary urgency Musculoskeletal Musculoskeletal: Reports back pain, Denies muscle weakness, Denies neck pain, Denies numbness and Denies tingling Integumentary/Breasts Skin/Breast: Denies pruritus, Denies erythema, Denies rash and Denies wounds Neurologic Neurologic: Denies behavioral changes, Denies confusion, Denies dizziness, Denies frequent falls, Denies loss of vision, Denies numbness, Denies tingling and Denies weakness Psychiatric Psychiatric: Denies anxiety, Denies behavioral changes, Denies confusion, Denies depression, Denies homicidal ideation and Denies suicidal ideation Endocrine Endocrine: Denies fatigue, Denies flushing and Denies palpitations Hematologic/Lymphatic Hematologic/Lymphatic: Denies easy bruising Allergic/Immunologic Allergic/Immunologic: Denies urticaria, Denies throat swelling and Denies wheezing Patient History <Brett Estrella PA-C - Last Filed: 09/13/22 13:08> Medical History Anemia (03/29/12) Anxiety ASD (atrial septal defect) (03/18/13) Benzodiazepine dependence (~2003) BPH w urinary obs/LUTS Chronic left shoulder pain (01/20/16) Chronic obstructive pulmonary disease (08/05/17) Cognitive disorder (04/24/14) Complex sleep apnea syndrome Dysequilibrium Essential tremor Facet arthropathy, lumbar Fatigue due to sleep pattern disturbance Fibromyalgia (02/03/17) H/O renal calculi History of sarcoidosis (11/07/14) History of stroke (~06/20/12) Hypothyroidism (~11/16/10) Idiopathic hypersomnia with long sleep time (~2007) Insomnia due to medical condition (~2007) Iron deficiency anemia following bariatric surgery (~02/03/15) Kidney stone (08/17/10) Lower urinary tract symptoms (LUTS) Major depressive disorder, recurrent episode, severe Migraine headache Mixed hyperlipidemia (~07/30/13) Moderate persistent asthma without complication (01/28/20) Narcotic dependence (09/01/16) Nocturnal hypoxemia (01/28/20) Obesity with body mass index (BMI) of 30.0 to 39.9 (12/06/14) Obstructive sleep apnea, adult Osteoarthropathy (02/03/17) Paroxysmal atrial fibrillation Patent foramen ovale Pneumonia Post traumatic stress disorder (PTSD) (~2004) Psoriasis (~07/30/13) S/P ECT (electroconvulsive therapy) Sarcoidosis Suicidal ideation (09/28/14) Vitamin B12 deficiency (02/19/11) Surgical History History of Cris-en-Y gastric bypass (~2003) History of total shoulder replacement (~12/2015) S/P laparoscopic cholecystectomy (10/18/18) S/P lumbar laminectomy (~10/2017) S/P patent foramen ovale closure (12/21/17) Family History Father No problems noted. Mother No problems noted. 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 yeimy/evangelical: Anabaptism travel history: over 6 months ago and other Smoking Status: Former smoker Tobacco: How many years used: 10 Smokeless tobacco user: other quit status: quit date established second hand exposure: Yes (Childhood) alcohol intake: current substance use type: does not use additional social history: Currently involved in a legal dispute with his son over the management of the patient's stepfather's estate. This has caused him significant levels of anxiety and frustration as he attempts to navigate this problem with his family. Smoking Status: Former smoker alcohol intake frequency: holidays/special occasions only Substance Use Type: does not use Exam <Brett Estrella PA-C - Last Filed: 09/13/22 13:08> Narrative Exam Narrative: Const General:?cooperative, healthy appearing and comfortable [facility] Head:?normal to inspection Ears:?hearing grossly normal bilaterally Nose:?external nose normal Face and sinus:?normal facial exam and sinuses nontender Mouth:?oral mucosae normal Throat:?posterior oropharynx normal Eyes General:?appearance normal, both eyes and all related structures Neck Neck:?normal visual inspection and no lymphadenopathy noted Resp Effort & Inspection:?normal respiratory effort Auscultation:?clear to auscultation bilaterally Cardio Rate:?regular rate Rhythm:?regular rhythm GI Abdomen is soft, distended. Abdomen is tender to palpation in the right upper quadrant, left lower quadrant. Neuro General:?patient alert, patient awake and patient oriented x3 Initial Vital Signs Initial Vital Signs: Vital Signs Temperature 98.2 F 09/13/22 10:49 Pulse Rate 83 09/13/22 10:49 Respiratory Rate 18 09/13/22 10:49 Blood Pressure 167/86 H 09/13/22 10:49 Pulse Oximetry 98 09/13/22 10:49 Oxygen Delivery Method Room Air 09/13/22 10:49 <Isaiah Muñiz MD - Last Filed: 09/15/22 13:26> Initial Vital Signs Initial Vital Signs: Vital Signs Temperature 98.2 F 09/13/22 10:49 Pulse Rate 83 09/13/22 10:49 Respiratory Rate 18 09/13/22 10:49 Blood Pressure 167/86 H 09/13/22 10:49 Pulse Oximetry 98 09/13/22 10:49 Oxygen Delivery Method Room Air 09/13/22 10:49 Course <Brett Estrella PA-C - Last Filed: 09/13/22 13:08> Orders Ordered: Discontinued Medications Acetaminophen (Acetaminophen 325 Mg Tablet) 975 mg PO NOW ONE Stop: 09/13/22 11:13 Last Admin: 09/13/22 11:17 Dose: 975 mg Documented By: ASIA Ondansetron HCl (Ondansetron 4 Mg Odt) 4 mg PO NOW PRN PRN Reason: Nausea And Vomiting Last Admin: 09/13/22 11:17 Dose: 4 mg Documented By: ASIA Ondansetron HCl (Ondansetron 4 Mg/2 Ml Inj) 4 mg IV NOW PRN PRN Reason: Nausea And Vomiting Vital Signs Vital signs: Vital Signs - 8 hr 09/13/22 10:49 09/13/22 11:05 09/13/22 11:32 Temperature 98.2 F Pulse Rate 83 91 H 83 Respiratory Rate 18 Blood Pressure 167/86 H Pulse Oximetry 98 99 95 Oxygen Delivery Method Room Air 09/13/22 12:00 09/13/22 12:30 09/13/22 12:56 Temperature Pulse Rate 85 89 Respiratory Rate Blood Pressure Pulse Oximetry 96 95 96 Oxygen Delivery Method 09/13/22 12:56 Temperature Pulse Rate Respiratory Rate Blood Pressure 121/71 Pulse Oximetry Oxygen Delivery Method <Isaiah Muñiz MD - Last Filed: 09/15/22 13:26> Orders Ordered: Discontinued Medications Acetaminophen (Acetaminophen 325 Mg Tablet) 975 mg PO NOW ONE Stop: 09/13/22 11:13 Last Admin: 09/13/22 11:17 Dose: 975 mg Documented By: ASIA Ondansetron HCl (Ondansetron 4 Mg Odt) 4 mg PO NOW PRN PRN Reason: Nausea And Vomiting Last Admin: 09/13/22 11:17 Dose: 4 mg Documented By: ASIA Ondansetron HCl (Ondansetron 4 Mg/2 Ml Inj) 4 mg IV NOW PRN PRN Reason: Nausea And Vomiting Vital Signs Vital signs: Vital Signs - 8 hr 09/13/22 10:49 09/13/22 11:05 09/13/22 11:32 Temperature 98.2 F Pulse Rate 83 91 H 83 Respiratory Rate 18 Blood Pressure 167/86 H Pulse Oximetry 98 99 95 Oxygen Delivery Method Room Air 09/13/22 12:00 09/13/22 12:30 09/13/22 12:56 Temperature Pulse Rate 85 89 Respiratory Rate Blood Pressure Pulse Oximetry 96 95 96 Oxygen Delivery Method 09/13/22 12:56 Temperature Pulse Rate Respiratory Rate Blood Pressure 121/71 Pulse Oximetry Oxygen Delivery Method MDM - Abdominal Pain <Hyma MARTHA Estrlela - Last Filed: 09/13/22 13:08> Lab Data 09/13/22 10:56 09/13/22 10:56 Labs: Lab Results 09/13/22 09/13/22 Range/Units 10:56 10:56 WBC 8.8 (4.5-11.0) X10^3/uL RBC 4.98 (4.5-5.9) X10^6/uL Hgb 16.2 (13.5-17.5) g/dL Hct 47.3 (41-53) % MCV 94.9 (80-100) fL MCH 32.4 (26-34) PG MCHC 34.2 (30-36) % RDW 14.3 (11.6-14.8) % Plt Count 193 (150-400) X10^3/uL Neut % (Auto) 70.6 (50-75) % Lymph % (Auto) 19.1 L (25-40) % Carver % (Auto) 9.0 (3-14) % Eos % (Auto) 0.6 L (2-4) % Baso % (Auto) 0.7 (0-2) % Neut # (Auto) 6200 (5289-7417) /uL Lymph # (Auto) 1700 (8767-5288) /uL Carver # (Auto) 800 (0-900) /uL Eos # (Auto) 100 (0-450) /uL Baso # (Auto) 100 (0-100) /uL Sodium 138 (137-145) mmol/L Potassium 4.3 (3.4-5.1) mmol/L Chloride 102 (98-107) mmol/L Carbon Dioxide 27 (22-32) mmol/L BUN 17 (9-20) mg/dL Creatinine 1.21 (0.66-1.25) mg/dL Estimated GFR > 60 (>60) mL/min BUN/Creatinine Ratio 14.0 (6-22) Glucose 92 (80-110) mg/dL Calcium 10.2 (8.4-10.2) mg/dL Total Bilirubin 0.6 (0.2-1.3) mg/dL AST 35 (17-59) IU/L ALT 42 (<50) IU/L Alkaline Phosphatase 78 (38-126) U/L Total Protein 7.6 (6.3-8.2) g/dL Albumin 4.6 (3.5-5.0) g/dL Globulin 3.0 (1.7-4.1) g/dL Albumin/Globulin Ratio 1.5 (1.0-2.8) Lipase 135 (23-300) U/L Point of care testing: Urine Dip Bedside Urine Glucose Negative Bedside Urine Bilirubin - Negative Bedside Urine Ketone - Negative Urine Specific [place] 1.005 Bedside Urine Occult Blood - Negative Bedside Urine pH 6 Bedside Urine Protein - Negative Bedside Urine Urobilinogen - Negative Bedside Urine Nitrite - Negative Bedside Urine Leukocytes - Negative Esterase MDM Narrative Medical decision making narrative: 67-year-old male with past medical history CVA, AFib, essential hypertension, BPH, VICTOR MANUEL, bipolar depression, anxiety, PTSD, COPD presents to the ED with 10 days of left-sided upper quadrant pain that radiates to the back. Concern for pancreatitis versus gastritis versus GERD versus appendicitis versus pyelonephritis versus nephrolithiasis versus malignancy versus other. Will obtain labs, lipase, UA, CT chest abdomen pelvis. Will give Tylenol for pain. Will reassess. Labs within normal limits. EKGs normal sinus rhythm with no acute ST-T changes. UA negative for UTI. CT chest abdomen pelvis with no acute findings to explain patient's symptoms. There were some incidental findings of a lung nodule and an adrenal nodule that are both unchanged from the last scan. Discussed findings with patient. Patient's symptoms can likely be due to a musculoskeletal sprain/strain versus GERD. Recommend trial of Pepcid AC for the next 2-4 weeks. Recommend follow-up with PCP as soon as possible. ED return precautions were discussed with patient. Patient verbalized understanding. Medical records reviewed: Yes <Isaiah Muñiz MD - Last Filed: 09/15/22 13:26> Lab Data Labs: Lab Results 09/13/22 09/13/22 Range/Units 10:56 10:56 WBC 8.8 (4.5-11.0) X10^3/uL RBC 4.98 (4.5-5.9) X10^6/uL Hgb 16.2 (13.5-17.5) g/dL Hct 47.3 (41-53) % MCV 94.9 (80-100) fL MCH 32.4 (26-34) PG MCHC 34.2 (30-36) % RDW 14.3 (11.6-14.8) % Plt Count 193 (150-400) X10^3/uL Neut % (Auto) 70.6 (50-75) % Lymph % (Auto) 19.1 L (25-40) % Carver % (Auto) 9.0 (3-14) % Eos % (Auto) 0.6 L (2-4) % Baso % (Auto) 0.7 (0-2) % Neut # (Auto) 6200 (9057-1898) /uL Lymph # (Auto) 1700 (0541-7976) /uL Carver # (Auto) 800 (0-900) /uL Eos # (Auto) 100 (0-450) /uL Baso # (Auto) 100 (0-100) /uL Sodium 138 (137-145) mmol/L Potassium 4.3 (3.4-5.1) mmol/L Chloride 102 (98-107) mmol/L Carbon Dioxide 27 (22-32) mmol/L BUN 17 (9-20) mg/dL Creatinine 1.21 (0.66-1.25) mg/dL Estimated GFR > 60 (>60) mL/min BUN/Creatinine Ratio 14.0 (6-22) Glucose 92 (80-110) mg/dL Calcium 10.2 (8.4-10.2) mg/dL Total Bilirubin 0.6 (0.2-1.3) mg/dL AST 35 (17-59) IU/L ALT 42 (<50) IU/L Alkaline Phosphatase 78 (38-126) U/L Total Protein 7.6 (6.3-8.2) g/dL Albumin 4.6 (3.5-5.0) g/dL Globulin 3.0 (1.7-4.1) g/dL Albumin/Globulin Ratio 1.5 (1.0-2.8) Lipase 135 (23-300) U/L Point of care testing: Urine Dip Bedside Urine Glucose Negative Bedside Urine Bilirubin - Negative Bedside Urine Ketone - Negative Urine Specific [place] 1.005 Bedside Urine Occult Blood - Negative Bedside Urine pH 6 Bedside Urine Protein - Negative Bedside Urine Urobilinogen - Negative Bedside Urine Nitrite - Negative Bedside Urine Leukocytes - Negative Esterase Discharge Plan Departure Patient Disposition: Home Clinical Impression: Abdominal pain Instructions: DI for Abdominal Pain-Adult Activity Restrictions/Additional Instructions: You were evaluated in the ED today for abdominal pain. Your labs, EKG, CT chest abdomen pelvis, urine were normal. Your symptoms could likely be due to a musculoskeletal cause or acid reflux. You may continue to take Tylenol at home, apply a lidocaine patch. You may also try Pepcid AC twice daily for 2-4 weeks. Please follow-up with your PCP as soon as possible. Return to the ED if your symptoms worsen, you experience chest pain, shortness of breath. Prescriptions: No Action sumatriptan succinate 100 mg tablet 100 mg PO BID PRN (Reason: Headache) Rx Instructions: take at onset, may repeat in 2 hours if no relief, max daily dose 2 tabs cholecalciferol (vitamin D3) 10 mcg (400 unit) capsule 10 mcg PO DAILY Trelegy Ellipta 200-62.5-25 mcg blister with device 1 inh inhalation DAILY Patient Comments: few months lithium carbonate 300 mg tablet extended release 600 mg PO BEDTIME Qty: 180 3RF methylphenidate HCl 20 mg tablet extended release 20 mg PO DAILY Qty: 30 0RF suvorexant 20 mg tablet 20 mg PO BEDTIME Qty: 30 2RF Combivent Respimat 4 GM mist See Rx Instructions .ROUTE .COMPLEX MDD 6 Qty: 0 Rx Instructions: 2 puff inh bid when not at home. may take additional puff prn not to exceed 6 puff in 24 hours levothyroxine 100 mcg tablet 100 mcg PO QAM Qty: 90 3RF montelukast [Singulair] 10 mg tablet 10 mg PO BEDTIME Qty: 90 3RF sumatriptan 20 mg/actuation spray,non-aerosol 20 mg NASAL ONCE Qty: 6 3RF Rx Instructions: administer into one nostril as a single dose prochlorperazine maleate 10 mg tablet 10 mg PO Q8H PRN (Reason: nausea and vomiting) Qty: 90 1RF Patient Comments: month metoprolol tartrate 25 mg tablet 12.5 mg PO BID Qty: 30 0RF Rx Instructions: NO FUTURE FILLS UNTIL SEEN BY PCP. PLEASE CALL TO SCHEDULE APPT. THANK YOU 10/05/21. clonazepam 2 mg tablet 2 mg PO TID MDD MDD 6mg PRN (Reason: see below) Qty: 270 0RF Rx Instructions: Take one tablet (2mg) by mouth three times daily PRN lurasidone [Latuda] 60 mg tablet 60 mg PO DAILY Qty: 90 0RF Rx Instructions: must administer with food (at least 350 calories) bupropion HCl 300 mg tablet extended release 24 hr See Rx Instructions .ROUTE .COMPLEX Qty: 90 0RF Dose Instruction: TAKE 1 CAPSULE BY MOUTH EVERY DAY AT NOON Patient Comments: 1200 Rx Instructions: TAKE 1 CAPSULE BY MOUTH EVERY DAY AT NOON ketoconazole 2 % shampoo See Rx Instructions .ROUTE .COMPLEX Qty: 360 5RF Dose Instruction: APPLY BY TOPICAL ROUTE EVERY DAY NEEDED TO THE AFFECTED AREA(S), LATHER, LEAVE IN PLACE FOR 5 MINUTES, AND THEN RINSE OFF WITH WATER Rx Instructions: APPLY BY TOPICAL ROUTE EVERY DAY NEEDED TO THE AFFECTED AREA(S), LATHER, LEAVE IN PLACE FOR 5 MINUTES, AND THEN RINSE OFF WITH WATER calcium citrate 250 mg calcium tablet 1,000 mg PO DAILY (DME) Disabled Parking Qty: 1 0RF Rx Instructions: Patient qualifies for disabled parking as per the attached form. albuterol sulfate 1.25 mg/3 mL solution for nebulization 1.25 mg inhalation Q4-6H PRN (Reason: shortness of breath or wheezing) Qty: 75 0RF Vitamin B-12 1 tab PO DAILY multivitamin Tablet 1 tab PO BID Eliquis 5 mg tablet 5 mg PO BID Referrals: Miscellaneous,DoctorMD [Primary Care Provider] - Stand Alone Forms: Patient Portal/API <Isaiah Muñiz MD - Last Filed: 09/15/22 13:26> [facility] Attestation: I was immediately available in the department for consultation. ?This documentation has been reviewed and I agree with assessment and plan. Supervised by Isaiah Muñiz MD
[2022-09-13] MEDS: ACETAMINOPHEN 325 MG TABLET 975 MG PO (11:17)
[2022-09-13] MEDS: ONDANSETRON 4 MG ODT PO (11:17)
[2022-09-13 11:18] LABS: Alanine Aminotransferase 42 IU/L (<50); Albumin 4.6 g/dL (3.5-5.0); Albumin Globulin Ratio 1.5 (1.0-2.8); Alkaline Phosphatase 78 U/L (38-126); Aspartate Aminotransferase 35 IU/L (17-59); Bilirubin Total 0.6 mg/dL (0.2-1.3); Blood Urea Nitrogen 17 mg/dL (9-20); Calcium 10.2 mg/dL (8.4-10.2); Carbon Dioxide 27 mmol/L (22-32); Chloride 102 mmol/L (98-107); Estimated Glomerular Filt Rate > 60 mL/min (>60); Glucose 92 mg/dL (80-110); HEMOLYSIS 22 (0-50); Lipase 135 U/L (23-300); Potassium 4.3 mmol/L (3.4-5.1); Sodium 138 mmol/L (137-145); Total Protein 7.6 g/dL (6.3-8.2)
[2022-09-13 11:32] VITALS: PULSE 83; O2SAT 95
[2022-09-13 12:00] VITALS: PULSE 85; O2SAT 96
[2022-09-13 12:30] VITALS: O2SAT 95
[2022-09-13 12:56] VITALS: BP 121/71; PULSE 89; O2SAT 96
== END 2022-09-13 12:59 | disposition home or self-care (01) ==
PROVIDERS: Emergency Provider Student in an Organized Health Care Education/Training Program
DX: R10.12 Left upper quadrant pain (principal); Z79.01 Long term (current) use of anticoagulants; Z79.899 Other long term (current) drug therapy
CPT/HCPCS: 71260; 74177; 80053; 81003; 83690; 85025; 93005; 93010; 99284; Q9967

== ENCOUNTER → 2022-10-29 06:44 | Outpatient (CLI) | payer MEDICARE, SELFPAY ==
[2021-03-18 13:58] VITALS: BMI 34.4
[2022-10-29 09:27] LABS: Lithium 0.7 mmol/L (0.6-1.2)
== END ==
PROVIDERS: PCP Internal Medicine; Referring Provider Psychiatry & Neurology Psychiatry; Visit Provider Psychiatry & Neurology Psychiatry
DX: F31.9 Bipolar disorder, unspecified (principal); Z79.899 Other long term (current) drug therapy
CPT/HCPCS: 36415; 80178

== ENCOUNTER → 2023-03-18 06:43 | Outpatient (CLI) | payer MEDICARE, SELFPAY ==
[2021-03-18 13:58] VITALS: BMI 34.4
--- NOTE | 2023-03-18 | DI.US.S_ITS ---
PROCEDURE: US ABD AORTA ANEURYSM SCREEN INDICATIONS: SCREENING TECHNIQUE: Real time scanning was performed of the aorta and iliac arteries, with image documentation. COMPARISON: Merged With [facility], , US ABD AORTA ANEURYSM SCREEN, 03/18/2021, 9:08. FINDINGS: Aorta: Proximal and mid aorta is not visualized due to bowel gas. Distal aortic diameter is 2.2 cm. Iliac arteries: Right common iliac artery measures 2.0 cm. Left common iliac artery measures 2.2 cm. IMPRESSION: No ectasia or aneurysm of the abdominal aorta or iliac arteries where visualized. Dictated by: Alberta Hart M.D. on 03/18/2023 at 8:39 Approved by: Alberta Hart M.D. on 03/18/2023 at 8:40
== END ==
PROVIDERS: PCP Internal Medicine; Referring Provider Internal Medicine; Visit Provider Internal Medicine
DX: Z13.6 Encounter for screening for cardiovascular disorders (principal)
CPT/HCPCS: 76706

== ENCOUNTER → 2023-05-12 13:51 | Outpatient (CLI) | payer MEDICARE, SELFPAY ==
[2021-03-18 13:58] VITALS: BMI 34.4
--- NOTE | 2023-05-12 13:52 | DI.MRI.S_ITS ---
PROCEDURE: MR LUMBAR SPINE WO CON INDICATIONS: WEAKNESS OF BOTH LOWER EXTREMITIES TECHNIQUE: Noncontrast sagittal T1 spin echo and T2 fast echo, sagittal STIR, and T2 fast spin echo through the lumbar spine. In cases with scoliosis, additional coronal T2 fast spin echo may be performed. COMPARISON: [facility], MR, L-SPINE WITHOUT CONTRAST, 06/15/2016, 10:24. FINDINGS: Image quality: Excellent. Alignment and Curvature: There is normal bony alignment. Bone Marrow: Marrow is of normal overall signal. No acute vertebral body compression fractures. Spinal Cord: Conus medullaris terminates at the L1 level. Visualized cord demonstrates normal signal and size. Paraspinous Soft Tissues: No paravertebral masses. T2 hyperintense right upper pole lesions are Ree demonstrated suggesting renal cysts. T12-L1: Mild disc desiccation and height loss. Broad-based disc bulge. Mild facet ligamentum flavum hypertrophy. No canal stenosis. No foraminal stenosis. L1-L2: Mild disc desiccation and height loss. Broad-based disc bulge. Moderate facet ligamentum flavum hypertrophy. No canal stenosis. No foraminal narrowing. The posterior disc protrusion visualized on the comparison MRI dated June 15, 2016 is no longer present. L2-L3: Mild disc desiccation and height loss. Broad-based disc bulge. Moderate facet ligamentum flavum hypertrophy. No canal stenosis. Mild bilateral foraminal stenosis. Findings are similar to the study dated June 15, 2016. L3-L4: Mild disc desiccation and height loss. Moderate facet ligamentum flavum hypertrophy. No canal stenosis. Mild bilateral foraminal stenosis. Findings are unchanged. L4-L5: Severe disc desiccation and height loss. Broad-based disc bulge. Mild facet and ligamentum flavum hypertrophy. No canal stenosis. Mild bilateral neural foraminal stenosis. Findings are unchanged. L5-S1: Moderate to severe disc desiccation and height loss. Moderate facet ligamentum flavum hypertrophy. No canal stenosis. Mild to moderate foraminal stenosis. Unchanged. IMPRESSION: 1. The previously visualized disc protrusion posterior to the L1 vertebral body is no longer present. 2. No canal stenosis of the lumbar spine. 3. Mild to moderate foraminal stenosis at L5-S1, unchanged from the prior study. Otherwise little to no foraminal stenosis of the lumbar spine. 4. Renal cysts redemonstrated. Dictated by: Alberta Hart M.D. on 05/12/2023 at 15:06 Approved by: Alberta Hart M.D. on 05/12/2023 at 15:11
== END ==
PROVIDERS: PCP Internal Medicine; Referring Provider Internal Medicine; Visit Provider Internal Medicine
DX: R29.898 Other symptoms and signs involving the musculoskeletal system (principal); M48.07 Spinal stenosis, lumbosacral region; N28.1 Cyst of kidney, acquired
CPT/HCPCS: 72148

== ENCOUNTER → 2023-06-16 06:26 | Outpatient (CLI) | payer MEDICARE, SELFPAY ==
[2021-03-18 13:58] VITALS: BMI 34.4
[2023-06-16 07:55] LABS: Lithium 0.9 mmol/L (0.6-1.2)
[2023-06-16 08:01] LABS: Alanine Aminotransferase 40 IU/L (<50); Albumin 4.1 g/dL (3.5-5.0); Albumin Globulin Ratio 1.6 (1.0-2.8); Alkaline Phosphatase 70 U/L (38-126); Aspartate Aminotransferase 34 IU/L (17-59); Bilirubin Total 0.6 mg/dL (0.2-1.3); Blood Urea Nitrogen 19 mg/dL (9-20); Calcium 10.2 mg/dL (8.4-10.2); Carbon Dioxide 30 mmol/L (22-32); Chloride 105 mmol/L (98-107); Estimated Glomerular Filt Rate > 60 mL/min (>60); Globulin 2.5 g/dL (1.7-4.1); Glucose 86 mg/dL (80-110); HEMOLYSIS < 15 (0-50); Potassium 4.7 mmol/L (3.4-5.1); Sodium 141 mmol/L (137-145); Total Protein 6.6 g/dL (6.3-8.2)
[2023-06-16 08:28] LABS: TSH w/ Reflex to FT4 0.72 uIU/mL (0.47-4.68)
== END ==
LOC: LAB 06:27
PROVIDERS: Family Provider Internal Medicine; PCP Internal Medicine; Referring Provider Psychiatry & Neurology Psychiatry; Visit Provider Psychiatry & Neurology Psychiatry
DX: Z79.899 Other long term (current) drug therapy (principal); F31.9 Bipolar disorder, unspecified
CPT/HCPCS: 36415; 80053; 80178; 84443

== ENCOUNTER 2023-11-05 12:21 | Emergency (ER) | payer MEDICARE, SELFPAY ==
[2021-03-18 13:58] VITALS: BMI 34.4
[2023-11-05] VITALS (9 sets, daily range): BP systolic 106–151; BP diastolic 64–75; PULSE 76–91; RESP 16–19; TEMP 36.1–36.5; O2SAT 92–96; BMI 32.8
--- NOTE | 2023-11-05 12:43 | EKG_ITS ---
[facility] [id number] [place] [id number] Test Date: 2023-11-05 Pat Name: Mario Hemphill Department: Room: Gender: Male Pediatric Nurse: REJI : 1955 Requested By: Order Number: [id number] Reading MD: Tristen Hay Measurements Intervals [place] Rate: 80 P: 41 OK: 178 QRS: -16 QRSD: 96 T: 21 QT: 374 QTc: 431 Interpretive Statements Normal sinus rhythm Inferior infarct , age undetermined Electronically Signed On 11-07-2023 8:45:32 PDT by Tristen Hay
--- NOTE | 2023-11-05 12:43 | DI.RAD.S_ITS ---
PROCEDURE: XR CHEST 1V INDICATIONS: chest pain TECHNIQUE: One view of the chest was acquired. COMPARISON: [facility], CR, XR CHEST 2V, 12/23/2020, 19:16. FINDINGS: Surgical changes and devices: Left shoulder arthroplasty. Plate and screw hardware noted the lower cervical spine. Lungs and pleura: Lungs are clear. No pleural effusions or pneumothorax. Mediastinum: Mediastinal contours appear normal. Heart size is normal. Bones and chest wall: No suspicious bony lesions. Overlying soft tissues appear unremarkable. IMPRESSION: No acute cardiopulmonary abnormality is seen. Approved by: Fredy Hinson M.D. on 11/05/2023 at 12:20
[2023-11-05 13:04] LABS: Add Manual Diff / Slide Review NO; Basophils Absolute Auto 0 /uL (0-100); Basophils Percent Auto 0.4 % (0-2); Eosinophils Absolute Auto 300 /uL (0-450); Hematocrit 46.7 % (41-53); Hemoglobin 15.9 g/dL (13.5-17.5); Lymphocytes Absolute Auto 1500 /uL (1100-4500); Lymphocytes Percent Auto 17.5 % (25-40); Mean Corpuscular Hemoglobin 32.6 PG (26-34); Mean Corpuscular Volume 95.7 fL (80-100); Monocytes Absolute Auto 900 /uL (0-900); Neutrophils Absolute Auto 6100 /uL (1500-7000); Neutrophils Percent Auto 69.1 % (50-75); Platelet Count 153 X10^3/uL (150-400); Red Blood Cell Count 4.88 X10^6/uL (4.5-5.9); Red Cell Distribution Width 14.4 % (11.6-14.8); White Blood Cell Count 8.8 X10^3/uL (4.5-11.0)
[2023-11-05 13:14] LABS: INR 1.1 (0.9-1.3); Prothrombin Time 12.2 SECONDS (9.4-12.5)
[2023-11-05 13:17] LABS: PTT Partial Thromboplastin Tim 32 SECONDS (25.1-36.5)
[2023-11-05 13:22] LABS: Alanine Aminotransferase 49 IU/L (<50); Albumin 4.5 g/dL (3.5-5.0); Albumin Globulin Ratio 1.8 (1.0-2.8); Alkaline Phosphatase 80 U/L (38-126); Aspartate Aminotransferase 36 IU/L (17-59); BUN Creatinine Ratio 15.3 (6-22); Bilirubin Total 0.9 mg/dL (0.2-1.3); Blood Urea Nitrogen 18 mg/dL (9-20); Calcium 9.9 mg/dL (8.4-10.2); Carbon Dioxide 24 mmol/L (22-32); Chloride 105 mmol/L (98-107); Creatine Kinase 33 U/L (55-170); Estimated Glomerular Filt Rate > 60 mL/min (>60); Globulin 2.5 g/dL (1.7-4.1); Glucose 99 mg/dL (80-110); HEMOLYSIS 29 (0-50); Lipase 124 U/L (23-300); Magnesium 2.3 mg/dL (1.6-2.3); Potassium 4.5 mmol/L (3.4-5.1); Sodium 137 mmol/L (137-145)
[2023-11-05 13:33] LABS: NT-proBNP (BNP-Adult 18+) 73 pg/mL (<125); Troponin I < 0.012 ng/mL (0.01-0.034)
--- NOTE | 2023-11-05 14:03 | ED_ITS ---
HPI - General Adult General Chief complaint: Weakness Stated complaint: fall t-2, hit head, trouble walking Time Seen by Provider: 11/05/23 14:03 Source: patient, family, RN notes reviewed and old records reviewed Mode of arrival: Family Vehicle Limitations: no limitations History of Present Illness HPI narrative: 68-year-old male history of CVA, atrial fibrillation, central hypotension, BPH, VICTOR MANUEL, bipolar, anxiety, PTSD, COPD who presents with complaint of trouble walking. Patient states 2 days ago he was leaning forward a little bit too far in the lost his balance fell backwards and hit his head. No loss of consciousness but has had some persistent headache since then. A little bit of mild neck pain although states has been improving. Family states he has been a little bit more scattered little bit more restless but not confused. He has also had a little bit more trouble ambulating and they describe more of a shuffling gait. Patient has been able to ambulate. He is felt little bit dizzy. No syncope or loss of consciousness when this occurred. He denies any new numbness tingling or weakness otherwise. States he can move all his extremities normally. Denies any back pain. Denies any new chest pain or shortness of breath. No nausea or vomiting. No saddle anesthesia. No loss of bowel or bladder control. No new GI or urinary symptoms. Patient has had back issues in the past he did have an epidural spinal injection the day prior to this. Patient is on aspirin 81 mg daily, he also takes lithium daily. He states he has never had any prior surgeries. No tobacco, alcohol or recreational drugs. Dr. Joanie Miller as his primary care physician. Related Data Home Medications Medication Instructions Recorded Confirmed ipratropium 20 mcg-albuterol 100 See Rx Instructions .Route 04/15/17 09/06/23 mcg/actuation mist for inhalation .COMPLEX ##0 (Combivent Respimat) Vitamin B-12 1 tab PO DAILY 02/21/18 09/06/23 apixaban 5 mg tablet (Eliquis) 5 mg PO BID 05/30/18 09/06/23 cholecalciferol (vitamin D3) 10 10 mcg PO DAILY 02/06/20 09/06/23 mcg (400 unit) capsule sumatriptan succinate 100 mg tablet 100 mg PO BID PRN Headache 02/06/20 09/06/23 fluticasone fur. 200 mcg-umeclid 1 inh inhalation DAILY 11/19/20 09/06/23 62.5 mcg-vilant 25 mcg inhalat.powder (Trelegy Ellipta) calcium citrate 1,000 mg PO DAILY 03/26/21 09/06/23 multivitamin 1 tab PO BID 03/24/22 09/06/23 Previous Rx's Medication Instructions Recorded Disabled Parking #1 ea 08/02/19 ketoconazole 2 % shampoo See Rx Instructions .Route 11/30/19 .COMPLEX #360 mL montelukast 10 mg tablet 10 mg PO BEDTIME #90 tabs 04/16/20 (Singulair) sumatriptan 20 mg/actuation nasal 20 mg intranasal ONCE #6 ea 05/23/20 spray prochlorperazine maleate 10 mg 10 mg PO Q8H PRN nausea and 05/26/20 tablet vomiting #90 tabs albuterol sulfate 1.25 mg/3 mL 1.25 mg (3 mL) inhalation Q4-6H 10/08/20 solution for nebulization PRN shortness of breath or wheezing #75 mL metoprolol tartrate 25 mg tablet 12.5 mg (1/2 x 25 mg) PO BID #30 10/05/21 tabs levothyroxine 100 mcg tablet 88 mcg (0.88 x 100 mcg) PO QAM #90 10/28/22 tabs lithium carbonate 300 mg 600 mg (2 x 300 mg) PO BEDTIME 06/13/23 tablet,extended release #180 tabs lurasidone 60 mg tablet (Latuda) 60 mg PO DAILY #90 tabs 06/13/23 bupropion HCl 300 mg 24 hr tablet, 300 mg PO DAILY #90 tabs 08/10/23 extended release suvorexant 20 mg tablet 20 mg PO BEDTIME #30 tabs 10/18/23 clonazepam 2 mg tablet 2 mg PO TID PRN see below #270 tabs 10/26/23 Allergies Allergy/AdvReac Type Severity Reaction Status Date / Time amoxicillin Allergy Severe Face, Verified 09/06/23 10:49 chest, upper back - beat red. Welts. doxycycline [DOXYCYCLINE] Allergy Mild ITCHING Verified 09/06/23 10:49 ketorolac [KETOROLAC] Allergy Unknown Verified 09/06/23 10:49 NSAIDS (Non-Steroidal AdvReac Unknown TO AVOID Verified 09/06/23 10:49 Anti-Inflamma R/T [NSAIDS (NON-STEROIDAL GASTRIC ANTI-INFLAMMA] BYPASS controlled substance AdvReac Uncoded 09/06/23 10:49 agreement Review of Systems Review of Systems ROS Unobtainable: All systems reviewed & are unremarkable except as noted in HPI and below Patient History Medical History BPH w urinary obs/LUTS Lower urinary tract symptoms (LUTS) Idiopathic hypersomnia with long sleep time (~2007) Obstructive sleep apnea, adult Complex sleep apnea syndrome Insomnia due to medical condition (~2007) Fatigue due to sleep pattern disturbance Iron deficiency anemia following bariatric surgery (~02/03/15) Anemia (03/29/12) Kidney stone (08/17/10) Fibromyalgia (02/03/17) Suicidal ideation (09/28/14) ASD (atrial septal defect) (03/18/13) Osteoarthropathy (02/03/17) Nocturnal hypoxemia (01/28/20) Moderate persistent asthma without complication (01/28/20) History of sarcoidosis (11/07/14) Migraine headache Benzodiazepine dependence (~2003) Facet arthropathy, lumbar Essential tremor Dysequilibrium Mixed hyperlipidemia (~07/30/13) Major depressive disorder, recurrent episode, severe Anxiety Pneumonia Paroxysmal atrial fibrillation S/P ECT (electroconvulsive therapy) H/O renal calculi Vitamin B12 deficiency (02/19/11) Sarcoidosis Psoriasis (~07/30/13) Chronic obstructive pulmonary disease (08/05/17) Narcotic dependence (09/01/16) Chronic left shoulder pain (01/20/16) Obesity with body mass index (BMI) of 30.0 to 39.9 (12/06/14) Cognitive disorder (04/24/14) Patent foramen ovale History of stroke (~06/20/12) Hypothyroidism (~11/16/10) Post traumatic stress disorder (PTSD) (~2004) Surgical History S/P patent foramen ovale closure (12/21/17) S/P laparoscopic cholecystectomy (10/18/18) S/P lumbar laminectomy (~10/2017) History of Cris-en-Y gastric bypass (~2003) History of total shoulder replacement (~12/2015) Family History Father No problems noted. Mother No problems noted. 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 yeimy/alevism: [employer] travel history: over 6 months ago and other Smoking Status: Former smoker Tobacco: How many years used: 10 Smokeless tobacco user: other quit status: quit date established second hand exposure: Yes (Childhood) alcohol intake: current substance use type: does not use additional social history: Currently involved in a legal dispute with his son over the management of the patient's stepfather's estate. This has caused him significant levels of anxiety and frustration as he attempts to navigate this problem with his family. Smoking Status: Former smoker alcohol intake frequency: holidays/special occasions only Substance Use Type: does not use Exam Narrative Exam Narrative: GEN: Patient appears in mild distress. HEAD: No evidence of trauma, no raccoon/Nagy sign. NECK: Nontender, painless range of motion, trachea midline Negative Nexus criteria, midline line tenderness, distracting injury, altered mental status, neuro deficit, recent EtOH. EYES: PERRLA, EOMI ENT: External inspection normal, trachea is midline, hearing aids bilaterally, no hemotypanum, Nares are clear, no septal hematoma, no dental or oral injury, airway is normal and with normal occlusion, No bony tenderness RESP: Chest is nontender and has symmetric movement, no ecchymosis, breath sounds are normal no crackles, wheezes or rales CVS: Heart sounds are normal, no murmur noted, No JVD. ABG/GI: Nontender, soft, normal bowel sounds, no distention, no organomegaly, pelvic rock is negative NEURO: Oriented AOx3, neuro is grossly intact, sensation and motor is normal all 4 extremities moving, cranial nerves II through XII are intact, GCS is 15. Normal [id number], normal heel-porter. 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 Normal sensation throughout upper and lower extremities. PSYCH: Normal mood and affect SKIN: Intact, warm and dry, no crepitus and without decubitus BACK: No CVA tenderness, no vertebral tenderness, no step-off's, no crepitus EXT: Atraumatic, hips are nontender, no pedal edema, normal color and temperature, normal range of motion of extremities with normal tendon exam, 2+ pulses in all four extremities Initial Vital Signs Initial Vital Signs: Vital Signs Blood Pressure 151/75 H 11/05/23 12:32 Scores GCS Bluebell coma scale eye opening: Spontaneous Bluebell coma scale verbal response: Orientated Bluebell coma scale motor response: Obey commands Bluebell coma scale total score: 15 Nexus Score for C-Spine Focal Neurologic deficit present: No Midline spinal tenderness present: No Altered level of conciousness present: No Intoxication present: No Distracting Injury Present: No Nexus Criteria for C-spine: 0 Course Orders Ordered: ED Orders 11/05/23 12:43 XR chest 1V Stat EKG-12 Lead Stat 11/05/23 12:50 Complete Blood Count AUTO DIFF Stat Comprehensive Metabolic Panel Stat Lipase Stat Magnesium Stat NT-proBNP (BNP-Adult 18+) Stat PTT Partial Thromboplastin Abimael Stat Prothrombin Time INR Stat Troponin & CK Cardiac Panel Stat 11/05/23 12:57 [place] Stat 11/05/23 14:17 CT cervical spine wo con Stat CT head/brain wo con Stat Vital Signs Vital signs: Vital Signs - 8 hr 11/05/23 12:32 11/05/23 12:33 11/05/23 12:39 Temperature 97.7 F Pulse Rate 84 91 H Respiratory Rate 18 16 Blood Pressure 151/75 H 151/75 H Pulse Oximetry 96 95 Oxygen Delivery Method Room Air 11/05/23 13:00 11/05/23 13:00 11/05/23 13:30 Temperature Pulse Rate 82 78 Respiratory Rate 18 19 Blood Pressure 111/71 Pulse Oximetry 93 92 Oxygen Delivery Method Room Air 11/05/23 13:30 11/05/23 15:06 11/05/23 15:07 Temperature Pulse Rate 80 78 Respiratory Rate Blood Pressure 106/68 Pulse Oximetry 94 95 Oxygen Delivery Method 11/05/23 15:07 11/05/23 15:30 11/05/23 15:30 Temperature Pulse Rate 76 Respiratory Rate Blood Pressure 116/70 106/64 Pulse Oximetry 92 Oxygen Delivery Method 11/05/23 16:02 Temperature 97 F L Pulse Rate Respiratory Rate 16 Blood Pressure Pulse Oximetry Oxygen Delivery Method Medical Decision Making Lab Data 11/05/23 12:50 11/05/23 12:50 Labs: Lab Results 11/05/23 11/05/23 Range/Units 12:50 12:57 WBC 8.8 (4.5-11.0) X10^3/uL RBC 4.88 (4.5-5.9) X10^6/uL Hgb 15.9 (13.5-17.5) g/dL Hct 46.7 (41-53) % MCV 95.7 (80-100) fL MCH 32.6 (26-34) PG MCHC 34.0 (30-36) % RDW 14.4 (11.6-14.8) % Plt Count 153 (150-400) X10^3/uL Neut % (Auto) 69.1 (50-75) % Lymph % (Auto) 17.5 L (25-40) % [place] % (Auto) 10.0 (3-14) % Eos % (Auto) 3.0 (2-4) % Baso % (Auto) 0.4 (0-2) % Neut # (Auto) 6100 (5285-3038) /uL Lymph # (Auto) 1500 (4771-2220) /uL [place] # (Auto) 900 (0-900) /uL Eos # (Auto) 300 (0-450) /uL Baso # (Auto) 0 (0-100) /uL PT 12.2 (9.4-12.5) SECONDS INR 1.1 (0.9-1.3) APTT 32 (25.1-36.5) SECONDS Sodium 137 (137-145) mmol/L Potassium 4.5 (3.4-5.1) mmol/L Chloride 105 (98-107) mmol/L Carbon Dioxide 24 (22-32) mmol/L BUN 18 (9-20) mg/dL Creatinine 1.18 (0.66-1.25) mg/dL Estimated GFR > 60 (>60) mL/min BUN/Creatinine Ratio 15.3 (6-22) Glucose 99 (80-110) mg/dL Calcium 9.9 (8.4-10.2) mg/dL Magnesium 2.3 (1.6-2.3) mg/dL Total Bilirubin 0.9 (0.2-1.3) mg/dL AST 36 (17-59) IU/L ALT 49 (<50) IU/L Alkaline Phosphatase 80 (38-126) U/L Total Creatine Kinase 33 L (55-170) U/L Troponin I < 0.012 (0.01-0.034) ng/mL NT-Pro-B Natriuret Pep 73 (<125) pg/mL Total Protein 7.0 (6.3-8.2) g/dL Albumin 4.5 (3.5-5.0) g/dL Globulin 2.5 (1.7-4.1) g/dL Albumin/Globulin Ratio 1.8 (1.0-2.8) Lipase 124 (23-300) U/L [place] 0.7 (0.6-1.2) mmol/L Urine Dip Bedside Urine Glucose Negative Bedside Urine Bilirubin - Negative Bedside Urine Ketone - Negative Urine Specific [place] 1.010 Bedside Urine Occult Blood - Negative Bedside Urine pH 7.0 Bedside Urine Protein - Negative Bedside Urine Urobilinogen - Negative Bedside Urine Nitrite - Negative Bedside Urine Leukocytes - Negative Esterase Point of care testing: Urine Dip Bedside Urine Glucose Negative Bedside Urine Bilirubin - Negative Bedside Urine Ketone - Negative Urine Specific [place] 1.010 Bedside Urine Occult Blood - Negative Bedside Urine pH 7.0 Bedside Urine Protein - Negative Bedside Urine Urobilinogen - Negative Bedside Urine Nitrite - Negative Bedside Urine Leukocytes - Negative Esterase Imaging Data Chest x-ray: Radiologist's Impression: e agreement] (More??) Close Chest X-Ray (Signed) Fredy Hinson - 11/05/23 Lumbar Spine MRI (Signed) Alberta Hart - 05/12/23 Abdominal Arterial Study US (Signed) Alberta Hart - 03/18/23 Chest/Abdomen/Pelvis CT (Signed) Enoc Wan - 09/13/22 Telemetry Strips 07/01/21 Abdominal Arterial Study US (Signed) Pan Shay - 03/18/[address] (Signed) Dayne Desai - 03/13/21 Chest X-Ray (Signed) Jose Antonio Wann - 12/23/20 Chest X-Ray (Signed) Jamil Dale - 12/23/20 Chest X-Ray (Signed) Earnest Ferrari - 11/20/20 PFT Result 10/31/20 Chest X-Ray (Signed) RossReji garcia - 10/10/20 Chest X-Ray (Signed) Nicholas Sandoval - 10/08/20 Telemetry Strips 10/08/20 Chest X-Ray (Signed) Tala Dominguez - 10/06/20 Radiology Report (Cancelled) Kp Renteria - 09/30/19 Brain MRI (Signed) Dayne Desai - 09/30/19 Brain MRI (Cancelled) 09/30/19 Telemetry Strips 09/30/19 Head/Neck CTA (Signed) Von Marcano - 09/30/19 Chest X-Ray (Signed) Von Marcano - 09/30/[address] (Signed) Von Marcano - 09/30/19 Echocardiogram Ultrasound (Signed) Karley Humphreys - 09/30/19 Lumbar Spine MRI (Signed) Comfort Lozano - 08/01/19 Chest X-Ray (Signed) Yao Vargas - 04/01/19 Chest X-Ray (Signed) Comfort Loazno - 01/22/19 Chest X-Ray (Signed) Tala Dominguez - 01/04/19 Abdomen Ultrasound (Signed) Dayne Desai - 11/12/18 Abdomen/Pelvis CT (Signed) Nicholas Sandoval - 11/10/18 Chest/Abdomen X-ray (Signed) Von Marcano - 10/14/18 Abdomen MRI (Signed) Nicholas Sandoval - 10/12/18 Chest/Abdomen X-ray (Signed) Nicholas Sandoval - 10/12/18 Chest X-Ray (Signed) Yao Vargas - 10/11/18 Abdomen Ultrasound (Signed) Tala Dominguez - 10/11/18 Abdomen Ultrasound (Signed) Von Marcano - 10/09/18 Chest X-Ray (Signed) Beckie Pelayo - 08/29/18 Chest X-Ray (Signed) Earnest Ferrari - 06/27/[address] (Signed) Nicholas Sandoval - 06/07/18 Injection for MRI Arthrogram (Signed) Suresh Alcazar - 06/07/18 Abdomen CTA (Signed) Misty Fernandez - 03/14/18 Ribs X-Ray (Signed) Beckie Pelayo - 02/21/18 Abdomen Ultrasound (Signed) Dayne Desai - 02/21/18 Telemetry Strips 02/21/18 Ribs X-Ray (Signed) Earnest Ferrari - 10/22/17 Ribs X-Ray (Signed) Moi Hoffman - 08/22/17 Telemetry Strips 04/15/17 Telemetry Strips 04/15/17 Launch?[address] [address] XRay Report Signed Patient: Mario Hemphill MR#: [id number] : 1955 Acct:[id number] Age/Sex: 68 / M Date of Service: 11/05/23 Loc: ED Accession Number: [id number] Procedure: XR chest 1V Ordering Provider: Lyubov Beavers D.O. PROCEDURE: XR CHEST 1V INDICATIONS: chest pain TECHNIQUE: One view of the chest was acquired. COMPARISON: [facility], , XR CHEST 2V, 12/23/2020, 19:16. FINDINGS: Surgical changes and devices: Left shoulder arthroplasty. Plate and screw hardware noted the lower cervical spine. Lungs and pleura: Lungs are clear. No pleural effusions or pneumothorax. Mediastinum: Mediastinal contours appear normal. Heart size is normal. Bones and chest wall: No suspicious bony lesions. Overlying soft tissues appear unremarkable. IMPRESSION: No acute cardiopulmonary abnormality is seen. Approved by: Fredy Hinson M.D. on 11/05/2023 at 12:20 ECG Data Attestation: I personally reviewed and interpreted this ECG as follows: Prior ECG tracings: available for review Interpretation: Sinus rhythm rate 80 QRS of 96 QTC of 431. No acute ST elevation depression noted. Patient has prior from 09/13/2022 which appears similar. MDM Narrative Medical decision making narrative: 68-year-old male anticoagulated aspirin who fell backwards hitting his head with no loss of consciousness but describes persistent headache and neck pain with more of a shuffling gait and being scattered little bit more restless over the last several days. Patient was Ambien to ambulate here in the department to give a urine sample. His neuro exam is overall appropriate although they note he seemed a little bit spacey. Is on anticoagulation and did hit his head plan for head CT and C-spine as well as labs. Head CT shows old right parietal cortical infarct, atrophy and chronic ischemic change without acute hemorrhage or mass effect. C-spine CT is negative for change. Labs show white count 8.8 hemoglobin of 15 platelets of 153, INR is 1.1, electrolytes are appropriate, normal renal function with creatinine 1.18 similar to patient's prior in June of 2023, normal BUN glucose of 99, Mag 2.3 LFTs are negative total CK is 33 troponins less than 0.012. Lilthium level is appropriate at 0.7 Chest x-ray is negative EKG shows no acute change Point of care urine is negative Patient has ambulated in the department. Pain, otherwise normal neurologic exam patient may have a component of concussion but plan for discharge home with primary care follow up. Discharge Plan Departure Patient Disposition: Home Clinical Impression: Concussion Instructions: DI for Concussion Activity Restrictions/Additional Instructions: Your imaging today shows an old right parietal infarct or stroke but no acute changes or bleeding. The rest of your workup is overall appropriate. Your lithium level is appropriate. Please call to set up follow up with your primary care physician. Please return for new or worsening symptoms, changes in mental status, new weakness numbness or tingling, loss of sensation inability to ambulate safely, new loss of bowel or bladder control, increasing difficulty with moving or walking or other new or concerning changes. Prescriptions: No Action sumatriptan succinate 100 mg tablet 100 mg PO BID PRN (Reason: Headache) Rx Instructions: take at onset, may repeat in 2 hours if no relief, max daily dose 2 tabs cholecalciferol (vitamin D3) 10 mcg (400 unit) capsule 10 mcg PO DAILY lithium carbonate 300 mg tablet extended release 600 mg PO BEDTIME Qty: 180 3RF lurasidone [Latuda] 60 mg tablet 60 mg PO DAILY Qty: 90 3RF Rx Instructions: must administer with food (at least 350 calories) Trelegy Ellipta 200-62.5-25 mcg blister with device 1 inh inhalation DAILY Patient Comments: few months levothyroxine 100 mcg tablet 88 mcg PO QAM Qty: 90 3RF Combivent Respimat 4 GM mist See Rx Instructions .ROUTE .COMPLEX MDD 6 Qty: 0 Rx Instructions: 2 puff inh bid when not at home. may take additional puff prn not to exceed 6 puff in 24 hours montelukast [Singulair] 10 mg tablet 10 mg PO BEDTIME Qty: 90 3RF sumatriptan 20 mg/actuation spray,non-aerosol 20 mg NASAL ONCE Qty: 6 3RF Rx Instructions: administer into one nostril as a single dose prochlorperazine maleate 10 mg tablet 10 mg PO Q8H PRN (Reason: nausea and vomiting) Qty: 90 1RF Patient Comments: month metoprolol tartrate 25 mg tablet 12.5 mg PO BID Qty: 30 0RF Rx Instructions: NO FUTURE FILLS UNTIL SEEN BY PCP. PLEASE CALL TO SCHEDULE APPT. THANK YOU 10/05/21. bupropion HCl 300 mg tablet extended release 24 hr 300 mg PO DAILY Qty: 90 1RF Patient Comments: 1200 suvorexant 20 mg tablet 20 mg PO BEDTIME Qty: 30 2RF clonazepam 2 mg tablet 2 mg PO TID MDD MDD 6mg PRN (Reason: see below) Qty: 270 0RF Rx Instructions: Take one tablet (2mg) by mouth three times daily PRN Dr. Johnson filling for Dr. Murray ketoconazole 2 % shampoo See Rx Instructions .ROUTE .COMPLEX Qty: 360 5RF Dose Instruction: APPLY BY TOPICAL ROUTE EVERY DAY NEEDED TO THE AFFECTED AREA(S), LATHER, LEAVE IN PLACE FOR 5 MINUTES, AND THEN RINSE OFF WITH WATER Rx Instructions: APPLY BY TOPICAL ROUTE EVERY DAY NEEDED TO THE AFFECTED AREA(S), LATHER, LEAVE IN PLACE FOR 5 MINUTES, AND THEN RINSE OFF WITH WATER calcium citrate 250 mg calcium tablet 1,000 mg PO DAILY (DME) Disabled Parking Qty: 1 0RF Rx Instructions: Patient qualifies for disabled parking as per the attached form. albuterol sulfate 1.25 mg/3 mL solution for nebulization 1.25 mg inhalation Q4-6H PRN (Reason: shortness of breath or wheezing) Qty: 75 0RF Vitamin B-12 1 tab PO DAILY multivitamin Tablet 1 tab PO BID Eliquis 5 mg tablet 5 mg PO BID Referrals: Joanie Miller MD [Primary Care Provider] - Stand Alone Forms: Patient Portal/API
--- NOTE | 2023-11-05 14:17 | DI.CT.S_ITS ---
PROCEDURE: CT HEAD/BRAIN WO CON INDICATIONS: scattered, restless, shuffling, hit head, no LOC 2 days TECHNIQUE: Noncontrast 4.5 mm thick angled axial sections acquired from the foramen magnum to the vertex, with coronal and sagittal reformats. For radiation dose reduction, the following was used: automated exposure control, adjustment of mA and/or kV according to patient size. COMPARISON: [facility], CT, CT HEAD/BRAIN WO CON, 09/30/2019, 13:20. FINDINGS: CSF spaces: Basal cisterns are patent. No extra-axial fluid collections. Ventricles are normal in size and shape. Brain: Atrophy and chronic ischemic change acute hemorrhage or mass effect. Old right frontal infarct stable from prior Skull and face: Calvarium and visualized facial bones are intact, without suspicious lesions. Sinuses: Visualized sinuses and mastoids are clear. IMPRESSION: Atrophy and chronic ischemic change without acute hemorrhage or mass effect Old right parietal cortical infarct Approved by: Fredy Hinson M.D. on 11/05/2023 at 14:48
--- NOTE | 2023-11-05 14:17 | DI.CT.S_ITS ---
PROCEDURE: CT CERVICAL SPINE WO CON INDICATIONS: scattered, restless, shuffling, hit head, no LOC 2 days TECHNIQUE: Noncontrast 3 mm thick sections acquired from the skull base to the T4 level. Sagittal and coronal reformats were then constructed. For radiation dose reduction, the following was used: automated exposure control, adjustment of mA and/or kV according to patient size. COMPARISON: [facility], CT, C-SPINE WITHOUT CONTRAST, 06/28/2017, 3:51. FINDINGS: Image quality: Excellent. Bones: C4-5 and C5-6 interbody fusion with good graft incorporation and anterior plate and screw instrumentation. No evidence of hardware failure or loosening. Craniovertebral relationships are normal Soft tissues: Prevertebral soft tissues are normal in thickness. No paravertebral hematomas. No apical pneumothoraces. IMPRESSION: No displaced fracture or traumatic subluxation. Approved by: Fredy Hinson M.D. on 11/05/2023 at 14:34
[2023-11-05 14:20] LABS: Lithium 0.7 mmol/L (0.6-1.2)
== END 2023-11-05 16:03 | disposition home or self-care (01) ==
PROVIDERS: Emergency Provider Emergency Medicine; Family Provider Internal Medicine; PCP Internal Medicine
DX: S06.0X0A Concussion without loss of consciousness, initial encounter (principal); M54.2 Cervicalgia; R07.9 Chest pain, unspecified; Z79.01 Long term (current) use of anticoagulants; W18.30XA Fall on same level, unspecified, initial encounter
CPT/HCPCS: 36415; 70450; 71045; 72125; 80053; 80178; 81003; 82550; 83690; 83735; 83880; 84484; 85025; 85610; 85730; 93005; 99284

== ENCOUNTER 2023-12-03 11:26 | Emergency (ER) | payer MEDICARE, SELFPAY ==
[2021-03-18 13:58] VITALS: BMI 34.4
[2023-12-03 11:33] VITALS: BP 141/77; PULSE 91; RESP 16; O2SAT 97
[2023-12-03 11:41] VITALS: BP 141/77; PULSE 84; RESP 19; TEMP 36.5; O2SAT 98
--- NOTE | 2023-12-03 11:54 | ED_ITS ---
HPI - Weakness <Liss Bains PA-C - Last Filed: 12/03/23 13:29> General Chief complaint: Weakness Stated complaint: weakness Time Seen by Provider: 12/03/23 11:46 History of Present Illness HPI Narrative: 68 yo male presents this morning for generalized weakness for the last 4-6 months. He states he takes Botox injections every 3 months for his migraine and has been for the last several years but saw a commercial on TV to notify your doctor immediately if you experience any weakness he then went to the [facility] website to read more about this and thought he should come in and get seen. His last injection was 1-1/2 months ago. 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 He reports good control of his migraine with this therapy. He states he has difficulty dressing himself mainly his pants or getting in and out of bed, his assists him. He reports no recent illness, he is denying any lightheadedness, chest pain, difficulty breathing, nausea, vomiting, diarrhea, no recent travel, no insect bites and no pain anywhere. no issues eating, swallowing, no localized muscle weakness at his injection sites which involve the scalp and neck. He denies any vision changes, double vision, issues with speech, drooling, fatigue while eating. He has no history of COVID and he has had no urinary symptoms. Has a history of some incontinence mainly because he is unable to get to the bathroom in time but has had no changes in his pattern. He has an appointment with Dr. Joanie miller this Tuesday. He has had no changes in his medications, he has cut his insomnia meds in half, he takes clonazepam as needed for his anxiety and took 1 this morning. He reports no changes in his sleep, no dietary changes, no unintentional weight gain or weight loss. Denies any changes in his stool pattern, no blood in his stool or dark stools. Alcohol use is minimal mainly on holidays he reports no recent alcohol use. No description of presyncope and no falls since his last visit in the emergency department on November 05, 2023. He was discharged without incident. All other systems are reviewed and are negative. Review of his records his last TSH was checked June 2023 and it was normal. Related Data Home Medications Medication Instructions Recorded Confirmed ipratropium 20 mcg-albuterol 100 See Rx Instructions .Route 04/15/17 09/06/23 mcg/actuation mist for inhalation .COMPLEX ##0 (Combivent Respimat) Vitamin B-12 1 tab PO DAILY 02/21/18 09/06/23 apixaban 5 mg tablet (Eliquis) 5 mg PO BID 05/30/18 09/06/23 cholecalciferol (vitamin D3) 10 10 mcg PO DAILY 02/06/20 09/06/23 mcg (400 unit) capsule sumatriptan succinate 100 mg tablet 100 mg PO BID PRN Headache 02/06/20 09/06/23 fluticasone fur. 200 mcg-umeclid 1 inh inhalation DAILY 11/19/20 09/06/23 62.5 mcg-vilant 25 mcg inhalat.powder (Trelegy Ellipta) calcium citrate 1,000 mg PO DAILY 03/26/21 09/06/23 multivitamin 1 tab PO BID 03/24/22 09/06/23 Previous Rx's Medication Instructions Recorded Disabled Parking #1 ea 08/02/19 ketoconazole 2 % shampoo See Rx Instructions .Route 11/30/19 .COMPLEX #360 mL montelukast 10 mg tablet 10 mg PO BEDTIME #90 tabs 04/16/20 (Singulair) sumatriptan 20 mg/actuation nasal 20 mg intranasal ONCE #6 ea 05/23/20 spray prochlorperazine maleate 10 mg 10 mg PO Q8H PRN nausea and 05/26/20 tablet vomiting #90 tabs albuterol sulfate 1.25 mg/3 mL 1.25 mg (3 mL) inhalation Q4-6H 10/08/20 solution for nebulization PRN shortness of breath or wheezing #75 mL metoprolol tartrate 25 mg tablet 12.5 mg (1/2 x 25 mg) PO BID #30 10/05/21 tabs levothyroxine 100 mcg tablet 88 mcg (0.88 x 100 mcg) PO QAM #90 10/28/22 tabs lithium carbonate 300 mg 600 mg (2 x 300 mg) PO BEDTIME 06/13/23 tablet,extended release #180 tabs lurasidone 60 mg tablet (Latuda) 60 mg PO DAILY #90 tabs 06/13/23 bupropion HCl 300 mg 24 hr tablet, 300 mg PO DAILY #90 tabs 08/10/23 extended release clonazepam 2 mg tablet 2 mg PO TID PRN see below #270 tabs 10/26/23 suvorexant 20 mg tablet 20 mg PO BEDTIME #30 tabs 11/07/23 Allergies Allergy/AdvReac Type Severity Reaction Status Date / Time amoxicillin Allergy Severe Face, Verified 09/06/23 10:49 chest, upper back - beat red. Welts. doxycycline [DOXYCYCLINE] Allergy Mild ITCHING Verified 09/06/23 10:49 ketorolac [KETOROLAC] Allergy Unknown Verified 09/06/23 10:49 NSAIDS (Non-Steroidal AdvReac Unknown TO AVOID Verified 09/06/23 10:49 Anti-Inflamma R/T [NSAIDS (NON-STEROIDAL GASTRIC ANTI-INFLAMMA] BYPASS controlled substance AdvReac Uncoded 09/06/23 10:49 agreement Review of Systems <Liss Bains PA-C - Last Filed: 12/03/23 13:29> Review of Systems Narrative: All other systems reviewed and are negative. Patient History <Liss Bains PA-C - Last Filed: 12/03/23 13:29> Medical History BPH w urinary obs/LUTS Lower urinary tract symptoms (LUTS) Idiopathic hypersomnia with long sleep time (~2007) Obstructive sleep apnea, adult Complex sleep apnea syndrome Insomnia due to medical condition (~2007) Fatigue due to sleep pattern disturbance Iron deficiency anemia following bariatric surgery (~02/03/15) Anemia (03/29/12) Kidney stone (08/17/10) Fibromyalgia (02/03/17) Suicidal ideation (09/28/14) ASD (atrial septal defect) (03/18/13) Osteoarthropathy (02/03/17) Nocturnal hypoxemia (01/28/20) Moderate persistent asthma without complication (01/28/20) History of sarcoidosis (11/07/14) Migraine headache Benzodiazepine dependence (~2003) Facet arthropathy, lumbar Essential tremor Dysequilibrium Mixed hyperlipidemia (~07/30/13) Major depressive disorder, recurrent episode, severe Anxiety Pneumonia Paroxysmal atrial fibrillation S/P ECT (electroconvulsive therapy) H/O renal calculi Vitamin B12 deficiency (02/19/11) Sarcoidosis Psoriasis (~07/30/13) Chronic obstructive pulmonary disease (08/05/17) Narcotic dependence (09/01/16) Chronic left shoulder pain (01/20/16) Obesity with body mass index (BMI) of 30.0 to 39.9 (12/06/14) Cognitive disorder (04/24/14) Patent foramen ovale History of stroke (~06/20/12) Hypothyroidism (~11/16/10) Post traumatic stress disorder (PTSD) (~2004) Surgical History S/P patent foramen ovale closure (12/21/17) S/P laparoscopic cholecystectomy (10/18/18) S/P lumbar laminectomy (~10/2017) History of Cris-en-Y gastric bypass (~2003) History of total shoulder replacement (~12/2015) Family History Father No problems noted. Mother No problems noted. 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 yeimy/mandaeism: Yazidism travel history: over 6 months ago and other Smoking Status: Former smoker Tobacco: How many years used: 10 Smokeless tobacco user: other quit status: quit date established second hand exposure: Yes (Childhood) alcohol intake: current substance use type: does not use additional social history: Currently involved in a legal dispute with his son over the management of the patient's stepfather's estate. This has caused him significant levels of anxiety and frustration as he attempts to navigate this problem with his family. Smoking Status: Former smoker alcohol intake frequency: holidays/special occasions only Substance Use Type: does not use Exam <Liss Bains PA-C - Last Filed: 12/03/23 13:29> Initial Vital Signs Initial Vital Signs: Vital Signs Pulse Rate 91 H 12/03/23 11:33 Respiratory Rate 16 12/03/23 11:33 Blood Pressure 141/77 H 12/03/23 11:33 Pulse Oximetry 97 12/03/23 11:33 Oxygen Delivery Method Room Air 12/03/23 11:33 Const Other: Smiling, seated on the exam table in no distress, his legs are crossed. Speech is clear. [facility] Head: normal to inspection, normocephalic, atraumatic and No cyanosis of lips/distal nose Ears: hearing grossly normal bilaterally, external ears normal, TM's normal bilaterally, EAC's normal, mastoids normal and no periauricular adenopathy Nose: external nose normal, nares normal and nasal mucous membranes and turbinates normal Face and sinus: normal facial exam, sinuses nontender and face symmetric Mouth: oral mucosae normal, lip normal, tongue normal, oropharynx normal and moist mucous membranes Teeth and gingiva: dentition normal and gingiva normal Throat: posterior oropharynx normal and uvula midline HENMI Other: Hearing aids removed for exam. Patient able to reinsert on his own. Eyes General: Yes appearance normal, both eyes and all related structures Alignment and Position: alignment normal and position normal Conjunctivae: conjunctivae normal Sclera: sclerae normal Pupils: PERRL and normal by confrontation EOM: EOM intact bilaterally and No nystagmus Other: Visual acuity is intact to fingers. Neck Thyroid: thyroid normal Carotids: no bruits Lymphatic: No lymphadenopathy Other: Active ROM intact. No meningeal signs. Resp Auscultation: clear to auscultation bilaterally, no rales, no rhonchi and no wheezes Other: Normal inspiratory effort and rate. Cardio Other: Known AFib, currently regular radial pulses matches apical pulse. GI Inspection: normal to inspection, non-distended and no visible pulsation Palpation: soft, no hepatosplenomegaly and No aortic enlargement Percussion: normal to percussion Auscultation: normal bowel sounds Skin General: no rashes or lesions noted and turgor normal Other: Some small dry flaky patches on his face otherwise normal turgor, temperature. Neuro Cranial Nerves: CN's II-XI intact bilaterally, PERRL, accommodation normal, EOM intact bilaterally, facial strength normal, tongue midline, gag reflex normal, able to elevate shoulders bilaterally and No nystagmus Motor: muscle tone normal throughout, strength 5/5 throughout, no pronator drift and no movement abnormalities noted Other: DTRs 1+ and equal in the upper and lower extremities, triceps and brachioradialis, knee jerk and ankle jerk reflexes normal. Finger to nose is normal. Extrem Other: No edema, no focal deficits. Moves all well. Able to stand from seated position without assistance. Single leg strength/gluteal strength is equal, but poor. Gait appear normal. No focal deficits, shuffling, or foot drop. No obvious tremor. Ambulates to toilet without assistance. Psych Mental Status: mental status grossly normal Speech and Movement: speech and movement normal, speech clear, speech not delayed, movement not slowed and speech not slurred Affect: normal affect Other: Smiling, legs crossed, pleasantly conversing. <Ann Chris MD - Last Filed: 12/03/23 15:04> Initial Vital Signs Initial Vital Signs: Vital Signs Pulse Rate 91 H 12/03/23 11:33 Respiratory Rate 16 12/03/23 11:33 Blood Pressure 141/77 H 12/03/23 11:33 Pulse Oximetry 97 12/03/23 11:33 Oxygen Delivery Method Room Air 12/03/23 11:33 Course <iLss Bains PA-C - Last Filed: 12/03/23 13:29> Orders Ordered: ED Orders 12/03/23 12:02 EKG-12 Lead Stat 12/03/23 12:04 Complete Blood Count AUTO DIFF Stat Comprehensive Metabolic Panel Stat Reevaluation(s) Reevaluation #1: Discussed his concerns regarding botulism and referenced Up-To-Date and current medical literature, advising his clinical examination is not suggestive. He feels reassured. He will see his doctor this week, discussed his lab results and the need for retesting as there is a slight bump in his creatinine of 1.37, up from 1.19. Vital Signs Vital signs: Vital Signs - 8 hr 12/03/23 11:33 12/03/23 11:33 12/03/23 11:41 Temperature 97.7 F Pulse Rate 91 H 84 Respiratory Rate 16 19 Blood Pressure 141/77 H 141/77 H Pulse Oximetry 97 98 Oxygen Delivery Method Room Air Room Air 12/03/23 12:00 12/03/23 12:30 12/03/23 13:02 Temperature Pulse Rate 78 79 73 Respiratory Rate Blood Pressure Pulse Oximetry 95 94 95 Oxygen Delivery Method 12/03/23 13:05 12/03/23 13:05 Temperature Pulse Rate 75 Respiratory Rate 15 Blood Pressure 103/65 Pulse Oximetry 95 Oxygen Delivery Method Reviewed and are normal. <Ann Chris MD - Last Filed: 12/03/23 15:04> Orders Ordered: ED Orders 12/03/23 12:02 EKG-12 Lead Stat 12/03/23 12:04 Complete Blood Count AUTO DIFF Stat Comprehensive Metabolic Panel Stat Vital Signs Vital signs: Vital Signs - 8 hr 12/03/23 11:33 12/03/23 11:33 12/03/23 11:41 Temperature 97.7 F Pulse Rate 91 H 84 Respiratory Rate 16 19 Blood Pressure 141/77 H 141/77 H Pulse Oximetry 97 98 Oxygen Delivery Method Room Air Room Air 12/03/23 12:00 12/03/23 12:30 12/03/23 13:02 Temperature Pulse Rate 78 79 73 Respiratory Rate Blood Pressure Pulse Oximetry 95 94 95 Oxygen Delivery Method 12/03/23 13:05 12/03/23 13:05 Temperature Pulse Rate 75 Respiratory Rate 15 Blood Pressure 103/65 Pulse Oximetry 95 Oxygen Delivery Method MDM - Weakness <Liss Bains PA-C - Last Filed: 12/03/23 13:29> Differential Diagnosis Differential diagnosis: Likely other (changes with aging process, deconditioned state) Lab Data Lab results narrative: Fingerstick glucose 78. CBC normal, UA normal, CMP normal except for creatinine 1.37 (up from 1.19) BUN 23, GFR 56. Previous labs 11/05/2023 including lipase, troponin, creatinine kinase all normal. Previous TSH 06/2023 normal. 12/03/23 12:04 12/03/23 12:04 Labs: Lab Results 12/03/23 Range/Units 12:04 WBC 9.0 (4.5-11.0) X10^3/uL RBC 4.94 (4.5-5.9) X10^6/uL Hgb 15.9 (13.5-17.5) g/dL Hct 47.2 (41-53) % MCV 95.6 (80-100) fL MCH 32.1 (26-34) PG MCHC 33.6 (30-36) % RDW 13.7 (11.6-14.8) % Plt Count 184 (150-400) X10^3/uL Neut % (Auto) 75.4 H (50-75) % Lymph % (Auto) 14.0 L (25-40) % Miller % (Auto) 9.3 (3-14) % Eos % (Auto) 0.9 L (2-4) % Baso % (Auto) 0.4 (0-2) % Neut # (Auto) 6800 (4319-0515) /uL Lymph # (Auto) 1300 (9869-4073) /uL Miller # (Auto) 800 (0-900) /uL Eos # (Auto) 100 (0-450) /uL Baso # (Auto) 0 (0-100) /uL Sodium 139 (137-145) mmol/L Potassium 4.8 (3.4-5.1) mmol/L Chloride 104 (98-107) mmol/L Carbon Dioxide 26 (22-32) mmol/L BUN 23 H (9-20) mg/dL Creatinine 1.37 H (0.66-1.25) mg/dL Estimated GFR 56 L (>60) mL/min BUN/Creatinine Ratio 16.8 (6-22) Glucose 85 (80-110) mg/dL Calcium 10.2 (8.4-10.2) mg/dL Total Bilirubin 0.8 (0.2-1.3) mg/dL AST 41 (17-59) IU/L ALT 52 H (<50) IU/L Alkaline Phosphatase 90 (38-126) U/L Total Protein 7.0 (6.3-8.2) g/dL Albumin 4.5 (3.5-5.0) g/dL Globulin 2.5 (1.7-4.1) g/dL Albumin/Globulin Ratio 1.8 (1.0-2.8) Point of Care Testing Glucose POC 78 Urine Dip Bedside Urine Glucose Negative Bedside Urine Bilirubin - Negative Bedside Urine Ketone - Negative Urine Specific [place] 1.015 Bedside Urine Occult Blood - Negative Bedside Urine pH 8.0 Bedside Urine Protein - Negative Bedside Urine Urobilinogen - Negative Bedside Urine Nitrite - Negative Bedside Urine Leukocytes - Negative Esterase ECG Data Interpretation: NSR, ventricular rate 78/min. No P or T wave abnormalities. NOrmal TN interval. Comparison to 11/05/2023, no interval change. MDM Narrative Medical decision making narrative: Generalized weakness for the last 6 months, multiple medical history and medications. No acute focal neurologic findings on clinical examination, no findings to suggest botulism or to warrant blood test. No findings to suggest systemic infection. No clinical findings to suggest dehydration, he is negative for any lightheadedness or postural changes. Normal vital signs. He has an appointment with Dr. Joanie Miller this Tuesday, he also sees PT for his back, he may benefit from additional PT to include gluteal and leg strengthening. Currently assisted by his for some ADLs, he may benefit from visiting nurse or home healths for some of his ADL's. Discussed obtaining a home safety evaluation Discussed the slight elevation in his creatinine today and to please have this rechecked with his doctor (1.37 BUN 23, up from 1.19) <Ann Chris MD - Last Filed: 12/03/23 15:04> Lab Data Labs: Lab Results 12/03/23 Range/Units 12:04 WBC 9.0 (4.5-11.0) X10^3/uL RBC 4.94 (4.5-5.9) X10^6/uL Hgb 15.9 (13.5-17.5) g/dL Hct 47.2 (41-53) % MCV 95.6 (80-100) fL MCH 32.1 (26-34) PG MCHC 33.6 (30-36) % RDW 13.7 (11.6-14.8) % Plt Count 184 (150-400) X10^3/uL Neut % (Auto) 75.4 H (50-75) % Lymph % (Auto) 14.0 L (25-40) % Miller % (Auto) 9.3 (3-14) % Eos % (Auto) 0.9 L (2-4) % Baso % (Auto) 0.4 (0-2) % Neut # (Auto) 6800 (8319-9800) /uL Lymph # (Auto) 1300 (1569-3192) /uL Miller # (Auto) 800 (0-900) /uL Eos # (Auto) 100 (0-450) /uL Baso # (Auto) 0 (0-100) /uL Sodium 139 (137-145) mmol/L Potassium 4.8 (3.4-5.1) mmol/L Chloride 104 (98-107) mmol/L Carbon Dioxide 26 (22-32) mmol/L BUN 23 H (9-20) mg/dL Creatinine 1.37 H (0.66-1.25) mg/dL Estimated GFR 56 L (>60) mL/min BUN/Creatinine Ratio 16.8 (6-22) Glucose 85 (80-110) mg/dL Calcium 10.2 (8.4-10.2) mg/dL Total Bilirubin 0.8 (0.2-1.3) mg/dL AST 41 (17-59) IU/L ALT 52 H (<50) IU/L Alkaline Phosphatase 90 (38-126) U/L Total Protein 7.0 (6.3-8.2) g/dL Albumin 4.5 (3.5-5.0) g/dL Globulin 2.5 (1.7-4.1) g/dL Albumin/Globulin Ratio 1.8 (1.0-2.8) Point of Care Testing Glucose POC 78 Urine Dip Bedside Urine Glucose Negative Bedside Urine Bilirubin - Negative Bedside Urine Ketone - Negative Urine Specific [place] 1.015 Bedside Urine Occult Blood - Negative Bedside Urine pH 8.0 Bedside Urine Protein - Negative Bedside Urine Urobilinogen - Negative Bedside Urine Nitrite - Negative Bedside Urine Leukocytes - Negative Esterase Discharge Plan Departure Patient Disposition: Home Clinical Impression: Weakness generalized Activity Restrictions/Additional Instructions: Please keep your appointment with Dr. Joanie Miller this week. Return KIRBY to ED if any new or worsening symptoms. Stay hydrated. Discuss your concerns with your PCP. You may want to consider additional physical therapy for strengthening, a home assessment for safety. I recommend that you have your blood work rechecked and this may include your thyroid which was last checked in June, repeat chemistry/creatinine which was slightly higher today than your previous reading. Prescriptions: No Action sumatriptan succinate 100 mg tablet 100 mg PO BID PRN (Reason: Headache) Rx Instructions: take at onset, may repeat in 2 hours if no relief, max daily dose 2 tabs cholecalciferol (vitamin D3) 10 mcg (400 unit) capsule 10 mcg PO DAILY lithium carbonate 300 mg tablet extended release 600 mg PO BEDTIME Qty: 180 3RF lurasidone [Latuda] 60 mg tablet 60 mg PO DAILY Qty: 90 3RF Rx Instructions: must administer with food (at least 350 calories) Trelegy Ellipta 200-62.5-25 mcg blister with device 1 inh inhalation DAILY Patient Comments: few months levothyroxine 100 mcg tablet 88 mcg PO QAM Qty: 90 3RF Combivent Respimat 4 GM mist See Rx Instructions .ROUTE .COMPLEX MDD 6 Qty: 0 Rx Instructions: 2 puff inh bid when not at home. may take additional puff prn not to exceed 6 puff in 24 hours montelukast [Singulair] 10 mg tablet 10 mg PO BEDTIME Qty: 90 3RF sumatriptan 20 mg/actuation spray,non-aerosol 20 mg NASAL ONCE Qty: 6 3RF Rx Instructions: administer into one nostril as a single dose prochlorperazine maleate 10 mg tablet 10 mg PO Q8H PRN (Reason: nausea and vomiting) Qty: 90 1RF Patient Comments: month metoprolol tartrate 25 mg tablet 12.5 mg PO BID Qty: 30 0RF Rx Instructions: NO FUTURE FILLS UNTIL SEEN BY PCP. PLEASE CALL TO SCHEDULE APPT. THANK YOU 10/05/21. bupropion HCl 300 mg tablet extended release 24 hr 300 mg PO DAILY Qty: 90 1RF Patient Comments: 1200 clonazepam 2 mg tablet 2 mg PO TID MDD MDD 6mg PRN (Reason: see below) Qty: 270 0RF Rx Instructions: Take one tablet (2mg) by mouth three times daily PRN Dr. Johnson filling for Dr. Murray suvorexant 20 mg tablet 20 mg PO BEDTIME Qty: 30 2RF ketoconazole 2 % shampoo See Rx Instructions .ROUTE .COMPLEX Qty: 360 5RF Dose Instruction: APPLY BY TOPICAL ROUTE EVERY DAY NEEDED TO THE AFFECTED AREA(S), LATHER, LEAVE IN PLACE FOR 5 MINUTES, AND THEN RINSE OFF WITH WATER Rx Instructions: APPLY BY TOPICAL ROUTE EVERY DAY NEEDED TO THE AFFECTED AREA(S), LATHER, LEAVE IN PLACE FOR 5 MINUTES, AND THEN RINSE OFF WITH WATER calcium citrate 250 mg calcium tablet 1,000 mg PO DAILY (DME) Disabled Parking Qty: 1 0RF Rx Instructions: Patient qualifies for disabled parking as per the attached form. albuterol sulfate 1.25 mg/3 mL solution for nebulization 1.25 mg inhalation Q4-6H PRN (Reason: shortness of breath or wheezing) Qty: 75 0RF Vitamin B-12 1 tab PO DAILY multivitamin Tablet 1 tab PO BID Eliquis 5 mg tablet 5 mg PO BID Referrals: Joanie Miller MD [Primary Care Provider] - Stand Alone Forms: Patient Portal/API ED Sign-out <Ann Chris MD - Last Filed: 12/03/23 15:04> Cosign ED Attending Cosignature Attestation: I was immediately available in the department for consultation throughout this patient's visit. Ann Chris MD
[2023-12-03 12:00] VITALS: PULSE 78; O2SAT 95
--- NOTE | 2023-12-03 12:21 | EKG_ITS ---
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
[2023-12-03 12:30] VITALS: PULSE 79; O2SAT 94
[2023-12-03 13:01] LABS: Add Manual Diff / Slide Review NO; Basophils Absolute Auto 0 /uL (0-100); Basophils Percent Auto 0.4 % (0-2); Eosinophils Absolute Auto 100 /uL (0-450); Eosinophils Percent Auto 0.9 % (2-4); Hematocrit 47.2 % (41-53); Hemoglobin 15.9 g/dL (13.5-17.5); Lymphocytes Absolute Auto 1300 /uL (1100-4500); Mean Corpuscular HGB Conc 33.6 % (30-36); Mean Corpuscular Hemoglobin 32.1 PG (26-34); Mean Corpuscular Volume 95.6 fL (80-100); Monocytes Absolute Auto 800 /uL (0-900); Monocytes Percent Auto 9.3 % (3-14); Neutrophils Absolute Auto 6800 /uL (1500-7000); Neutrophils Percent Auto 75.4 % (50-75); Platelet Count 184 X10^3/uL (150-400); Red Blood Cell Count 4.94 X10^6/uL (4.5-5.9); Red Cell Distribution Width 13.7 % (11.6-14.8)
[2023-12-03 13:02] VITALS: PULSE 73; O2SAT 95
[2023-12-03 13:05] VITALS: BP 103/65; PULSE 75; RESP 15; O2SAT 95
[2023-12-03 13:18] LABS: Alanine Aminotransferase 52 IU/L (<50); Albumin 4.5 g/dL (3.5-5.0); Albumin Globulin Ratio 1.8 (1.0-2.8); Alkaline Phosphatase 90 U/L (38-126); Aspartate Aminotransferase 41 IU/L (17-59); BUN Creatinine Ratio 16.8 (6-22); Bilirubin Total 0.8 mg/dL (0.2-1.3); Blood Urea Nitrogen 23 mg/dL (9-20); Calcium 10.2 mg/dL (8.4-10.2); Carbon Dioxide 26 mmol/L (22-32); Chloride 104 mmol/L (98-107); Estimated Glomerular Filt Rate 56 mL/min (>60); Globulin 2.5 g/dL (1.7-4.1); Glucose 85 mg/dL (80-110); HEMOLYSIS 15 (0-50); Potassium 4.8 mmol/L (3.4-5.1); Sodium 139 mmol/L (137-145)
== END 2023-12-03 13:36 | disposition home or self-care (01) ==
PROVIDERS: Emergency Provider Physician Assistant Medical; Family Provider Internal Medicine; PCP Internal Medicine
DX: R53.1 Weakness (principal); Z79.01 Long term (current) use of anticoagulants; Z79.899 Other long term (current) drug therapy
CPT/HCPCS: 80053; 81003; 82962; 85025; 93005; 99282; 99284

== ENCOUNTER → 2023-12-16 10:46 | Outpatient (CLI) | payer MEDICARE, SELFPAY ==
[2021-03-18 13:58] VITALS: BMI 34.4
--- NOTE | 2023-12-16 10:48 | DI.RAD.S_ITS ---
PROCEDURE: FL SHOULDER INJECTION MR/CT LT INDICATIONS: SP LEFT TSA 2012 COMPARISON: [facility], , [place] SHOULDER INJECTION MR/CT LT, 06/07/2018, 10:01. TECHNIQUE: The indications, alternatives, benefits, risks, and complications of the procedure were explained to the patient. Written informed consent was obtained and placed in the chart. The shoulder was examined fluoroscopically and a site for needle placement chosen for entry into the glenohumeral joint from an anterior approach. The skin was prepped and draped in a sterile fashion, and 1% lidocaine infiltrated from skin down to joint capsule. A spinal needle was inserted into the glenohumeral joint, and a small amount of iodinated contrast media injected to confirm intra-articular placement of the needle tip. This was followed by approximately 12 mL of iodinated contrast. The needle was removed and a dressing was applied. The patient was given postprocedural instructions and sent to the CT suite for imaging. FINDINGS: A single fluoroscopic spot image demonstrates intra-articular location of injected iodinated contrast. IMPRESSION: Successful fluoroscopically guided administration of iodinated contrast solution into the shoulder joint for CT arthrogram. Dictated by: Daniel Casas M.D. on 12/16/2023 at 14:57 Approved by: Daniel Casas M.D. on 12/16/2023 at 14:59
--- NOTE | 2023-12-16 10:49 | DI.CT.S_ITS ---
PROCEDURE: CT SHOULDER LEFT WITH CON INDICATIONS: STATUS POST LEFT TSA 2012 TECHNIQUE: After the intra-articular administration of 12 mL of dilute non-ionic contrast, 1-1.5 mm thick sections acquired from the acromioclavicular joint to the inferior scapula, with coronal and sagittal reformatting. COMPARISON: [facility], , CT SHOULDER INJECTION MR/CT LT, 12/16/2023, 10:08. [facility] [place], CR, XR SHOULDER 2+ VIEWS LEFT, 12/05/2023, 11:53. FINDINGS: Image quality: Excellent. Bones: Pre- acromion type os acromiale is present. Mild degenerative changes of the acromioclavicular joint. No acute fracture of the clavicle. Status post left total shoulder arthroplasty, in near anatomic alignment. Chronic deformity of the medial aspect of the proximal humeral metadiaphysis, representing healed fracture. No periprosthetic lucency about the humeral component. Periprosthetic lucency surrounding the glenoid peg component, nonspecific. The glenoid peg is in appropriate position. Anterior fusion instrumentation of the lower cervical spine evaluated. The visualized left ribs are is unremarkable. Soft tissues: The visualized left lung is unremarkable. Mild calcification of the thoracic aorta. Dense coronary artery calcification visualized. No left axillary lymphadenopathy. No significant atrophy of the rotator cuff musculature. Small amount of contrast within the subacromial/subdeltoid space, raising concern for full-thickness rotator cuff tear versus postprocedure. IMPRESSION: 1. Status post left total shoulder arthroplasty, in near anatomic alignment. Periprosthetic lucency surrounding the glenoid peg component, nonspecific. 2. Contrast extravasation into the subacromial/subdeltoid space, which may be secondary to full-thickness rotator cuff tear versus postprocedural. Dictated by: Abby Delaney M.D. on 12/16/2023 at 17:41 Approved by: Abby Delaney M.D. on 12/16/2023 at 17:55
[2023-12-16] MEDS: LIDOCAINE 1% 20 ML INJ (11:38)
== END ==
PROVIDERS: Family Provider Internal Medicine; PCP Internal Medicine; Referring Provider Orthopaedic Surgery; Visit Provider Orthopaedic Surgery
DX: Z96.612 Presence of left artificial shoulder joint (principal); Z98.1 Arthrodesis status
CPT/HCPCS: 23350; 73040; 73201; Q9967

== ENCOUNTER → 2024-04-09 08:54 | Outpatient (CLI) | payer MEDICARE, SELFPAY ==
[2021-03-18 13:58] VITALS: BMI 34.4
[2024-04-09 10:15] LABS: Lithium 0.6 mmol/L (0.6-1.2)
== END ==
PROVIDERS: Family Provider Internal Medicine; PCP Internal Medicine; Referring Provider Psychiatry & Neurology Psychiatry; Visit Provider Psychiatry & Neurology Psychiatry
DX: Z79.899 Other long term (current) drug therapy (principal)
CPT/HCPCS: 36415; 80178

== ENCOUNTER 2024-04-13 15:13 | Emergency (ER) | payer MEDICARE, SELFPAY ==
[2021-03-18 13:58] VITALS: BMI 34.4
[2024-04-13] VITALS (12 sets, daily range): BP systolic 99–134; BP diastolic 57–75; PULSE 66–88; RESP 11–18; TEMP 36.7; O2SAT 94–100; BMI 28.3
--- NOTE | 2024-04-13 15:32 | DI.CT.S_ITS ---
PROCEDURE: CT ANGIO HEAD AND NECK INDICATIONS: suspected stroke 04/10 TECHNIQUE: After the administration of intravenous contrast, 1 mm thick sections acquired from the aortic arch through the [place] of [place]. 3-dimensional qjctvrq-wydrqneoe-wdqagpkcbz (MIP) and/or volume rendering reformats were acquired of the central intracranial vasculature and neck separately. For radiation dose reduction, the following was used: automated exposure control, adjustment of mA and/or kV according to patient size. COMPARISON: None. FINDINGS: Image quality: Diagnostic. BRAIN: No significant change since same day head CT. HEAD CT ANGIOGRAPHY: Anterior circulation: Intracranial internal carotid arteries are normal in size and flow. The flow within the paired anterior cerebral arteries is normal and symmetric. The flow within the middle cerebral arteries is normal and symmetric. The anterior communicating artery is seen. No aneurysms are seen. Posterior circulation: Visualized portions of the vertebral arteries demonstrate normal caliber, and join to form a normal appearing basilar artery. Flow within the posterior cerebral arteries is normal and symmetric. No aneurysms are seen. NECK CT ANGIOGRAPHY: Carotid system: The great vessels demonstrate a conventional anatomy as they arise from the aortic arch. The origins of the common carotid arteries appear patent. The common carotid arteries demonstrate normal caliber and courses. The bifurcation regions are both widely patent. The internal carotid arteries demonstrate normal calibers and courses. Posterior circulation: The origins of the vertebral arteries both appear widely patent. The more superior extracranial portions of both vertebral arteries also demonstrate normal courses and calibers. They join to form a normal appearing basilar artery. Soft tissues: Visualized neck soft tissues demonstrate no suspicious abnormalities. Bones: No suspicious bony lesions. Visualized cervical spine appears normally aligned. IMPRESSION: No significant intracranial arterial abnormality is seen. No significant abnormality is seen within the arteries of the neck. Any quantitative measurements of stenosis were performed using NASCET criteria. Dictated by: oRlando Shipman M.D. on 04/13/2024 at 16:48 Approved by: Rolando Shipman M.D. on 04/13/2024 at 16:49
--- NOTE | 2024-04-13 15:32 | DI.CT.S_ITS ---
PROCEDURE: CT HEAD/BRAIN WO CON INDICATIONS: suspected stroke 04/10 TECHNIQUE: Noncontrast 4.5 mm thick angled axial sections acquired from the foramen magnum to the vertex, with coronal and sagittal reformats. For radiation dose reduction, the following was used: automated exposure control, adjustment of mA and/or kV according to patient size. COMPARISON: [facility], CT, CT HEAD/BRAIN WO CON, 11/05/2023, 14:22. FINDINGS: Image quality: Diagnostic. CSF spaces: Basal cisterns are patent. No extra-axial fluid collections. The ventricles are symmetric in size and shape. Brain: No intracranial bleeds or masses. There is cerebral volume loss for age, with resultant ventricular and sulcal prominence. There are periventricular and deep white matter chronic small vessel ischemic changes. There is intracranial internal carotid artery atherosclerosis. Foci of encephalomalacia in the right frontoparietal region and right basal ganglia. Skull and face: Calvarium and visualized facial bones appear intact, without suspicious lesions. Sinuses: Visualized sinuses and mastoids are clear. IMPRESSION: No acute intracranial pathology. Sequela of prior right-sided infarcts. Dictated by: Rolando Shipman M.D. on 04/13/2024 at 16:43 Approved by: Rolando Shipman M.D. on 04/13/2024 at 16:45
--- NOTE | 2024-04-13 15:37 | EKG_ITS ---
[address] [address] Test Date: 2024-04-13 Pat Name: Mario Hemphill Department: [facility] Room: Gender: Male [employer] Operator: ERNIE : [id number] Requested By: Order Number: [id number] Reading MD: Tristen Hay Measurements Intervals [place] Rate: 83 P: 38 TN: 188 QRS: -16 QRSD: 84 T: 31 QT: 366 QTc: 430 Interpretive Statements Normal sinus rhythm Electronically Signed On 04-13-2024 18:22:52 PST by Tristen Hay
[2024-04-13 16:14] LABS: Add Manual Diff / Slide Review NO; Basophils Absolute Auto 0 /uL (0-100); Basophils Percent Auto 0.3 % (0-2); Eosinophils Absolute Auto 100 /uL (0-450); Eosinophils Percent Auto 1.3 % (2-4); Hematocrit 43.3 % (41-53); Hemoglobin 14.5 g/dL (13.5-17.5); INR 1.1 (0.9-1.3); Lymphocytes Absolute Auto 1400 /uL (1100-4500); Mean Corpuscular HGB Conc 33.4 % (30-36); Mean Corpuscular Hemoglobin 32.1 PG (26-34); Mean Corpuscular Volume 96.1 fL (80-100); Monocytes Absolute Auto 800 /uL (0-900); Monocytes Percent Auto 9.2 % (3-14); Neutrophils Absolute Auto 6300 /uL (1500-7000); Neutrophils Percent Auto 73.2 % (50-75); Platelet Count 188 X10^3/uL (150-400); Prothrombin Time 12.1 SECONDS (9.4-12.5); Red Blood Cell Count 4.51 X10^6/uL (4.5-5.9); Red Cell Distribution Width 14.6 % (11.6-14.8); White Blood Cell Count 8.6 X10^3/uL (4.5-11.0)
[2024-04-13 16:17] LABS: PTT Partial Thromboplastin Tim 32 SECONDS (25.1-36.5)
[2024-04-13 16:20] LABS: Alanine Aminotransferase 24 IU/L (<50); Albumin 3.9 g/dL (3.5-5.0); Albumin Globulin Ratio 1.4 (1.0-2.8); Alkaline Phosphatase 67 U/L (38-126); Aspartate Aminotransferase 28 IU/L (17-59); BUN Creatinine Ratio 16.9 (6-22); Bilirubin Total 0.6 mg/dL (0.2-1.3); Blood Urea Nitrogen 21 mg/dL (9-20); Calcium 9.9 mg/dL (8.4-10.2); Carbon Dioxide 28 mmol/L (22-32); Chloride 107 mmol/L (98-107); Creatine Kinase 35 U/L (55-170); Estimated Glomerular Filt Rate > 60 mL/min (>60); Globulin 2.8 g/dL (1.7-4.1); Glucose 96 mg/dL (80-110); HEMOLYSIS 19 (0-50); Lipase 55 U/L (23-300); Potassium 4.2 mmol/L (3.4-5.1); Sodium 138 mmol/L (137-145); Total Protein 6.7 g/dL (6.3-8.2)
[2024-04-13 16:31] LABS: NT-proBNP (BNP-Adult 18+) 197 pg/mL (<125); Troponin I < 0.012 ng/mL (0.01-0.034)
--- NOTE | 2024-04-13 17:51 | ED_ITS ---
HPI - Neuro Symptoms/Deficit General Chief Complaint: Neuro Symptoms/Deficit Stated Complaint: Poss Stroke, LKN Apr 10 Time Seen by Provider: 04/13/24 17:05 Source: patient and family Mode of arrival: Wheelchair History of Present Illness HPI Narrative: 69-year-old male with history of multiple prior strokes, believes he had two strokes in 2004, two strokes in 2011, with residual left hand weakness deficit, has had generalized weakness and some vague dizziness without spinning sensation since new year's day, he called EMS for a lift assist but refused transport at that time, has ongoing generalized weakness, feels unsteady in his gait, has been eating or drinking last, feels like he might be dehydrated. No fevers or chills. Denies chest pain or shortness of breath. Denies abdominal pain, nausea or vomiting. Denies frequency or painful urination. No flank pain. Denies headache neck pain. No new weakness, still has his same post stroke residual left hand mild weakness. Related Data Home Medications Medication Instructions Recorded Confirmed ipratropium 20 mcg-albuterol 100 See Rx Instructions .Route 04/15/17 09/06/23 mcg/actuation mist for inhalation .COMPLEX ##0 (Combivent Respimat) Vitamin B-12 1 tab PO DAILY 02/21/18 09/06/23 apixaban 5 mg tablet (Eliquis) 5 mg PO BID 05/30/18 09/06/23 cholecalciferol (vitamin D3) 10 10 mcg PO DAILY 02/06/20 09/06/23 mcg (400 unit) capsule sumatriptan succinate 100 mg tablet 100 mg PO BID PRN Headache 02/06/20 09/06/23 fluticasone fur. 200 mcg-umeclid 1 inh inhalation DAILY 11/19/20 09/06/23 62.5 mcg-vilant 25 mcg inhalat.powder (Trelegy Ellipta) calcium citrate 1,000 mg PO DAILY 03/26/21 09/06/23 multivitamin 1 tab PO BID 03/24/22 09/06/23 Previous Rx's Medication Instructions Recorded Disabled Parking #1 ea 08/02/19 ketoconazole 2 % shampoo See Rx Instructions .Route 11/30/19 .COMPLEX #360 mL montelukast 10 mg tablet 10 mg PO BEDTIME #90 tabs 04/16/20 (Singulair) sumatriptan 20 mg/actuation nasal 20 mg intranasal ONCE #6 ea 05/23/20 spray prochlorperazine maleate 10 mg 10 mg PO Q8H PRN nausea and 05/26/20 tablet vomiting #90 tabs albuterol sulfate 1.25 mg/3 mL 1.25 mg (3 mL) inhalation Q4-6H 10/08/20 solution for nebulization PRN shortness of breath or wheezing #75 mL metoprolol tartrate 25 mg tablet 12.5 mg (1/2 x 25 mg) PO BID #30 10/05/21 tabs levothyroxine 100 mcg tablet 88 mcg (0.88 x 100 mcg) PO QAM #90 10/28/22 tabs clonazepam 2 mg tablet 2 mg PO TID PRN see below #270 tabs 10/26/23 suvorexant 20 mg tablet 20 mg PO BEDTIME #30 tabs 11/07/23 bupropion HCl 300 mg 24 hr tablet, 300 mg PO DAILY #90 tabs 04/09/24 extended release lithium carbonate 300 mg 600 mg (2 x 300 mg) PO BEDTIME 04/09/24 tablet,extended release #180 tabs lurasidone 60 mg tablet (Latuda) 60 mg PO DAILY #90 tabs 04/10/24 Allergies Allergy/AdvReac Type Severity Reaction Status Date / Time amoxicillin Allergy Severe Face, Verified 12/16/23 11:30 chest, upper back - beat red. Welts. ketorolac [KETOROLAC] Allergy Unknown Verified 12/16/23 11:30 doxycycline [DOXYCYCLINE] AdvReac Mild ITCHING Verified 12/16/23 11:30 NSAIDS (Non-Steroidal AdvReac Unknown TO AVOID Verified 12/16/23 11:30 Anti-Inflamma R/T [NSAIDS (NON-STEROIDAL GASTRIC ANTI-INFLAMMA] BYPASS controlled substance AdvReac Unknown Uncoded 12/16/23 11:30 agreement Patient History Medical History BPH w urinary obs/LUTS Lower urinary tract symptoms (LUTS) Idiopathic hypersomnia with long sleep time (~2007) Obstructive sleep apnea, adult Complex sleep apnea syndrome Insomnia due to medical condition (~2007) Fatigue due to sleep pattern disturbance Iron deficiency anemia following bariatric surgery (~02/03/15) Anemia (03/29/12) Kidney stone (08/17/10) Fibromyalgia (02/03/17) Suicidal ideation (09/28/14) ASD (atrial septal defect) (03/18/13) Osteoarthropathy (02/03/17) Nocturnal hypoxemia (01/28/20) Moderate persistent asthma without complication (01/28/20) History of sarcoidosis (11/07/14) Migraine headache Benzodiazepine dependence (~2003) Facet arthropathy, lumbar Essential tremor Dysequilibrium Mixed hyperlipidemia (~07/30/13) Major depressive disorder, recurrent episode, severe Anxiety Pneumonia Paroxysmal atrial fibrillation S/P ECT (electroconvulsive therapy) H/O renal calculi Vitamin B12 deficiency (02/19/11) Sarcoidosis Psoriasis (~07/30/13) Chronic obstructive pulmonary disease (08/05/17) Narcotic dependence (09/01/16) Chronic left shoulder pain (01/20/16) Obesity with body mass index (BMI) of 30.0 to 39.9 (12/06/14) Cognitive disorder (04/24/14) Patent foramen ovale History of stroke (~06/20/12) Hypothyroidism (~11/16/10) Post traumatic stress disorder (PTSD) (~2004) Surgical History S/P patent foramen ovale closure (12/21/17) S/P laparoscopic cholecystectomy (10/18/18) S/P lumbar laminectomy (~10/2017) History of Cris-en-Y gastric bypass (~2003) History of total shoulder replacement (~12/2015) Family History Father No problems noted. Mother No problems noted. 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 yeimy/jew: [employer] travel history: over 6 months ago and other Smoking Status: Former smoker Tobacco: How many years used: 10 Smokeless tobacco user: other quit status: quit date established second hand exposure: Yes (Childhood) alcohol intake: current substance use type: does not use additional social history: Currently involved in a legal dispute with his son over the management of the patient's stepfather's estate. This has caused him significant levels of anxiety and frustration as he attempts to navigate this problem with his family. Smoking Status: Former smoker alcohol intake frequency: holidays/special occasions only Exam Narrative Exam Narrative: GENERAL: Well-developed patient, in mild distress. HEAD: Atraumatic. Normocephalic. EYES: Pupils equal round and reactive. Extraocular motions intact. No scleral icterus. No injection or drainage. ENT: Nose without bleeding, purulent drainage. Throat without erythema, tonsillar hypertrophy or exudate. Airway patent. NECK: Trachea midline. Non tender CARDIOVASCULAR: Regular rate and rhythm without murmurs, gallops, or rubs. RESPIRATORY: Clear to auscultation. Breath sounds equal bilaterally. No wheezes, rales, or rhonchi. GASTROINTESTINAL: Abdomen soft, non-tender, nondistended. EXTREMITIES: No edema or joint tenderness. BACK: Nontender without deformity or crepitance. No flank tenderness. NEURO: AOx3. Cranial nerves intact. Motor 5/5 lower extremities leg lift hold. Motor 5/5 upper extremities, slight limitation on left arm elevation due to orthopedic left shoulder pain issue. Light touch sensation intact to face arms and legs symmetrical. Oxlxep-vf-rmzz testing unremarkable, slight limitation due to left shoulder orthopedic issue on the left upper extremity. SKIN: No rash or erythema of visible areas Initial Vital Signs Initial Vital Signs: Vital Signs Temperature 98.1 F 04/13/24 15:16 Pulse Rate 88 04/13/24 15:16 Respiratory Rate 16 04/13/24 15:16 Blood Pressure 110/68 04/13/24 15:16 Pulse Oximetry 95 04/13/24 15:16 Oxygen Delivery Method Room Air 04/13/24 15:16 Course Orders Ordered: Discontinued Medications Sodium Chloride (Normal Saline 0.9%) 1,000 mls @ 500 mls/hr IV BOLUS ONE Stop: 04/13/24 20:10 Last Infusion: 04/13/24 21:26 Dose: Infused Documented By: Infusion: 04/13/24 19:23 Dose: 500 mls/hr Documented By: DAVID(2) Infusion: 04/13/24 18:34 Dose: 0 mls/hr Documented By: Admin: 04/13/24 18:23 Dose: 500 mls/hr Documented By: DAVID(2) Vital Signs Vital signs: Vital Signs - 8 hr 04/13/24 15:16 04/13/24 16:37 04/13/24 17:00 Temperature 98.1 F Pulse Rate 88 76 Respiratory Rate 16 18 13 Blood Pressure 110/68 107/69 Pulse Oximetry 95 94 96 Oxygen Delivery Method Room Air 04/13/24 17:08 04/13/24 17:08 04/13/24 17:30 Temperature Pulse Rate 73 66 Respiratory Rate 12 11 L Blood Pressure 108/64 Pulse Oximetry 99 Oxygen Delivery Method 04/13/24 17:30 04/13/24 18:00 04/13/24 18:00 Temperature Pulse Rate 80 Respiratory Rate 16 Blood Pressure 99/57 L 134/75 Pulse Oximetry 100 Oxygen Delivery Method 04/13/24 18:14 04/13/24 18:14 04/13/24 18:30 Temperature Pulse Rate 77 71 Respiratory Rate 13 12 Blood Pressure 118/61 Pulse Oximetry 98 99 Oxygen Delivery Method 04/13/24 18:31 04/13/24 18:31 04/13/24 19:07 Temperature Pulse Rate 72 83 Respiratory Rate 12 16 Blood Pressure 112/66 Pulse Oximetry 99 98 Oxygen Delivery Method 04/13/24 19:07 04/13/24 19:30 04/13/24 19:30 Temperature Pulse Rate 74 Respiratory Rate 14 Blood Pressure 108/69 116/69 Pulse Oximetry 99 Oxygen Delivery Method 04/13/24 20:34 04/13/24 20:34 Temperature Pulse Rate 74 Respiratory Rate 16 Blood Pressure 100/63 Pulse Oximetry 99 Oxygen Delivery Method Room Air MDM - Neuro Symptoms/Deficit Lab Data Attestation: I reviewed the patient's lab results. Lab results narrative: White blood cell count 8600, hemoglobin 14.5, glucose 188, basic metabolic panel unremarkable. Liver functions and lipase unremarkable. Troponin negative. BNP normal. 04/13/24 15:50 04/13/24 15:50 Labs: Lab Results 04/13/24 Range/Units 15:50 WBC 8.6 (4.5-11.0) X10^3/uL RBC 4.51 (4.5-5.9) X10^6/uL Hgb 14.5 (13.5-17.5) g/dL Hct 43.3 (41-53) % MCV 96.1 (80-100) fL MCH 32.1 (26-34) PG MCHC 33.4 (30-36) % RDW 14.6 (11.6-14.8) % Plt Count 188 (150-400) X10^3/uL Neut % (Auto) 73.2 (50-75) % Lymph % (Auto) 16.0 L (25-40) % [place] % (Auto) 9.2 (3-14) % Eos % (Auto) 1.3 L (2-4) % Baso % (Auto) 0.3 (0-2) % Neut # (Auto) 6300 (9772-4361) /uL Lymph # (Auto) 1400 (6816-4315) /uL [place] # (Auto) 800 (0-900) /uL Eos # (Auto) 100 (0-450) /uL Baso # (Auto) 0 (0-100) /uL PT 12.1 (9.4-12.5) SECONDS INR 1.1 (0.9-1.3) APTT 32 (25.1-36.5) SECONDS Sodium 138 (137-145) mmol/L Potassium 4.2 (3.4-5.1) mmol/L Chloride 107 (98-107) mmol/L Carbon Dioxide 28 (22-32) mmol/L BUN 21 H (9-20) mg/dL Creatinine 1.24 (0.66-1.25) mg/dL Estimated GFR > 60 (>60) mL/min BUN/Creatinine Ratio 16.9 (6-22) Glucose 96 (80-110) mg/dL Calcium 9.9 (8.4-10.2) mg/dL Magnesium 2.0 (1.6-2.3) mg/dL Total Bilirubin 0.6 (0.2-1.3) mg/dL AST 28 (17-59) IU/L ALT 24 (<50) IU/L Alkaline Phosphatase 67 (38-126) U/L Total Creatine Kinase 35 L (55-170) U/L Troponin I < 0.012 (0.01-0.034) ng/mL NT-Pro-B Natriuret Pep 197 H (<125) pg/mL Total Protein 6.7 (6.3-8.2) g/dL Albumin 3.9 (3.5-5.0) g/dL Globulin 2.8 (1.7-4.1) g/dL Albumin/Globulin Ratio 1.4 (1.0-2.8) Lipase 55 (23-300) U/L Imaging Data CT scan - head: Radiologist's Impression: Close Head CT (Signed) Rolando Shipman - 04/13/24 Head/Neck CTA (Signed) Rolando Shipman - 04/13/24 Launch?Image [address] [address] [address] Scan Report Signed Patient: Mario Hemphill MR#: [id number] : 1955 Acct:[id number] Age/Sex: 69 / M Date of Service: 04/13/24 Loc: ED Accession Number: [id number] Procedure: CT head/brain wo con Ordering Provider: Cali Todd D.O. PROCEDURE: CT HEAD/BRAIN WO CON INDICATIONS: suspected stroke 04/10 TECHNIQUE: Noncontrast 4.5 mm thick angled axial sections acquired from the foramen magnum to the vertex, with coronal and sagittal reformats. For radiation dose reduction, the following was used: automated exposure control, adjustment of mA and/or kV according to patient size. COMPARISON: [facility], CT, CT HEAD/BRAIN WO CON, 11/05/2023, 14:22. FINDINGS: Image quality: Diagnostic. CSF spaces: Basal cisterns are patent. No extra-axial fluid collections. The ventricles are symmetric in size and shape. Brain: No intracranial bleeds or masses. There is cerebral volume loss for age, with resultant ventricular and sulcal prominence. There are periventricular and deep white matter chronic small vessel ischemic changes. There is intracranial internal carotid artery atherosclerosis. Foci of encephalomalacia in the right frontoparietal region and right basal ganglia. Skull and face: Calvarium and visualized facial bones appear intact, without suspicious lesions. Sinuses: Visualized sinuses and mastoids are clear. IMPRESSION: No acute intracranial pathology. Sequela of prior right-sided infarcts. Dictated by: Rolando Shipman M.D. on 04/13/2024 at 16:43 Approved by: Rolando Shipman M.D. on 04/13/2024 at 16:45 CTA - brain/neck: Radiologist's Impression: [address] [address] [address] Scan Report Signed Patient: Mario Hemphill MR#: [id number] : 1955 Acct:[id number] Age/Sex: 69 / M Date of Service: 04/13/24 Loc: ED Accession Number: [id number] Procedure: CT angio head and neck Ordering Provider: Cali Todd D.O. PROCEDURE: CT ANGIO HEAD AND NECK INDICATIONS: suspected stroke 04/10 TECHNIQUE: After the administration of intravenous contrast, 1 mm thick sections acquired from the aortic arch through the [place] of [place]. 3-dimensional umwasiw-kycxgksrx-hpbwmcxtoi (MIP) and/or volume rendering reformats were acquired of the central intracranial vasculature and neck separately. For radiation dose reduction, the following was used: automated exposure control, adjustment of mA and/or kV according to patient size. COMPARISON: None. FINDINGS: Image quality: Diagnostic. BRAIN: No significant change since same day head CT. HEAD CT ANGIOGRAPHY: Anterior circulation: Intracranial internal carotid arteries are normal in size and flow. The flow within the paired anterior cerebral arteries is normal and symmetric. The flow within the middle cerebral arteries is normal and symmetric. The anterior communicating artery is seen. No aneurysms are seen. Posterior circulation: Visualized portions of the vertebral arteries demonstrate normal caliber, and join to form a normal appearing basilar artery. Flow within the posterior cerebral arteries is normal and symmetric. No aneurysms are seen. NECK CT ANGIOGRAPHY: Carotid system: The great vessels demonstrate a conventional anatomy as they arise from the aortic arch. The origins of the common carotid arteries appear patent. The common carotid arteries demonstrate normal caliber and courses. The bifurcation regions are both widely patent. The internal carotid arteries demonstrate normal calibers and courses. Posterior circulation: The origins of the vertebral arteries both appear widely patent. The more superior extracranial portions of both vertebral arteries also demonstrate normal courses and calibers. They join to form a normal appearing basilar artery. Soft tissues: Visualized neck soft tissues demonstrate no suspicious abnormalities. Bones: No suspicious bony lesions. Visualized cervical spine appears normally aligned. IMPRESSION: No significant intracranial arterial abnormality is seen. No significant abnormality is seen within the arteries of the neck. Any quantitative measurements of stenosis were performed using NASCET criteria. Dictated by: Rolando Shipman M.D. on 04/13/2024 at 16:48 Approved by: Rolando Shipman M.D. on 04/13/2024 at 16:49 MRI brain: Radiologist's Impression: [address] [address] Magnetic Resonance Report Signed Patient: Mario Hemphill MR#: [id number] : 1955 Acct:[id number] Age/Sex: 69 / M Date of Service: 04/13/24 Loc: ED Accession Number: [id number] Procedure: MR head/brain wo con Ordering Provider: Demetris Gonzalez MD PROCEDURE: MR HEAD/BRAIN WO CON INDICATIONS: stroke workup, weak/dizzy, hx prior strokes. TECHNIQUE: Noncontrast axial T1 spin echo, axial T2 fast spin echo, sagittal and axial FLAIR, coronal T2 fast spin echo, axial gradient echo, axial diffusion and ADC through the brain. COMPARISON: CT head and CT head angiogram 04/13/2024, CT head 11/05/2023. FINDINGS: Image quality: Diagnostic CSF Spaces: Basal cisterns are patent. No extra-axial fluid collections. Ventricles are normal in size and shape. Brain: Right parietal right basal chronic infarct. No intracranial masses or hemorrhage. Mehta/white matter interface is normal. Brainstem appears normal. Diffusion-weighted images demonstrate no acute infarct. No chronic ischemic insults. Normal intravascular flow voids are present. Skull and face: Calvarium has normal marrow signal. Orbits appear normal. Sinuses: Sinuses and mastoids are clear. IMPRESSION: No abnormal restricted diffusion to suggest acute infarct. Chronic right infarcts. Approved by: Mealny Brown M.D.,Ph.D. on 04/13/2024 at 20:54 ECG Data Attestation: I personally reviewed and interpreted this ECG as follows: Interpretation: Normal sinus rhythm with rate of 83, no obvious ST segment elevation or depression changes. Somewhat flat T-waves in lead 3 but upright amplitude more normal in other contiguous inferior leads 2 and 3. OK 188, QRS 84, QTC 430. [facility] Narrative Medical decision making narrative: 69-year-old with history of prior strokes, has felt he has had generalized weakness for the last 3 days, called EMS 04/11/24 for generalized weakness and lift assist refusing transport at that time, still feeling like he has generalized weakness, difficulty walking, no new weakness focally from his old stroke and left hand weakness. CT head and CTA studies ordered from triage. Labs and EKG pending. CT head no acute changes, but old right-sided stroke changes noted, see radiology report. CT angiogram head and neck vessels, no thrombosis or significant narrowing, see radiology report. IV fluid bolus given the patient's concern about dehydration, MRI brain ordered, it can be done later tonight, order placed. He would like to proceed with imaging. MRI brain showed old stroke changes, no new/acute/subacute stroke changes. See radiology report Copies of CT/CTA/MRI reports given to patient. Patient requests DC home, no further workup desired for now, encouarged to take oral aspirin daily, follow-up with PCP early next week advised, return precautions discussed Discharge Plan Departure Patient Disposition: Home Clinical Impression: Dizziness, Dehydration, History of multiple strokes Activity Restrictions/Additional Instructions: History of multiple previous strokes, recent dizziness and generalized weakness for a number of days. CT head showed no acute changes tonight, CT angiogram of the head and neck vessel show no thrombosis or significant narrowing. MRI of the brain was also performed, showed chronic old stroke changes but no evidence of new strokes. Laboratory studies unremarkable. You were given IV fluids and felt better. It is possible you might have some dehydration causing your generalized weakness. Encouraged to drink plenty of fluids. Continue taking 1 aspirin daily for now. Follow up with your regular doctor early next week. Return earlier to this/nearest emergency department for any change worsening symptoms or any concerns prior Prescriptions: No Action sumatriptan succinate 100 mg tablet 100 mg PO BID PRN (Reason: Headache) Rx Instructions: take at onset, may repeat in 2 hours if no relief, max daily dose 2 tabs cholecalciferol (vitamin D3) 10 mcg (400 unit) capsule 10 mcg PO DAILY Trelegy Ellipta 200-62.5-25 mcg blister with device 1 inh inhalation DAILY Patient Comments: few months levothyroxine 100 mcg tablet 88 mcg PO QAM Qty: 90 3RF Combivent Respimat 4 GM mist See Rx Instructions .ROUTE .COMPLEX MDD 6 Qty: 0 Rx Instructions: 2 puff inh bid when not at home. may take additional puff prn not to exceed 6 puff in 24 hours montelukast [Singulair] 10 mg tablet 10 mg PO BEDTIME Qty: 90 3RF sumatriptan 20 mg/actuation spray,non-aerosol 20 mg NASAL ONCE Qty: 6 3RF Rx Instructions: administer into one nostril as a single dose prochlorperazine maleate 10 mg tablet 10 mg PO Q8H PRN (Reason: nausea and vomiting) Qty: 90 1RF Patient Comments: month metoprolol tartrate 25 mg tablet 12.5 mg PO BID Qty: 30 0RF Rx Instructions: NO FUTURE FILLS UNTIL SEEN BY PCP. PLEASE CALL TO SCHEDULE APPT. THANK YOU 10/05/21. clonazepam 2 mg tablet 2 mg PO TID MDD MDD 6mg PRN (Reason: see below) Qty: 270 0RF Rx Instructions: Take one tablet (2mg) by mouth three times daily PRN Dr. Johnson filling for Dr. Murray suvorexant 20 mg tablet 20 mg PO BEDTIME Qty: 30 2RF lithium carbonate 300 mg tablet extended release 600 mg PO BEDTIME Qty: 180 0RF bupropion HCl 300 mg tablet extended release 24 hr 300 mg PO DAILY Qty: 90 0RF lurasidone [Latuda] 60 mg tablet 60 mg PO DAILY Qty: 90 3RF Rx Instructions: must administer with food (at least 350 calories) ketoconazole 2 % shampoo See Rx Instructions .ROUTE .COMPLEX Qty: 360 5RF Dose Instruction: APPLY BY TOPICAL ROUTE EVERY DAY NEEDED TO THE AFFECTED AREA(S), LATHER, LEAVE IN PLACE FOR 5 MINUTES, AND THEN RINSE OFF WITH WATER Rx Instructions: APPLY BY TOPICAL ROUTE EVERY DAY NEEDED TO THE AFFECTED AREA(S), LATHER, LEAVE IN PLACE FOR 5 MINUTES, AND THEN RINSE OFF WITH WATER calcium citrate 250 mg calcium tablet 1,000 mg PO DAILY (DME) Disabled Parking Qty: 1 0RF Rx Instructions: Patient qualifies for disabled parking as per the attached form. albuterol sulfate 1.25 mg/3 mL solution for nebulization 1.25 mg inhalation Q4-6H PRN (Reason: shortness of breath or wheezing) Qty: 75 0RF Vitamin B-12 1 tab PO DAILY multivitamin Tablet 1 tab PO BID Eliquis 5 mg tablet 5 mg PO BID Referrals: Joanie Miller MD [Primary Care Provider] - Stand Alone Forms: Patient Portal/API/Survey
--- NOTE | 2024-04-13 18:12 | DI.MRI.S_ITS ---
PROCEDURE: MR HEAD/BRAIN WO CON INDICATIONS: stroke workup, weak/dizzy, hx prior strokes. TECHNIQUE: Noncontrast axial T1 spin echo, axial T2 fast spin echo, sagittal and axial FLAIR, coronal T2 fast spin echo, axial gradient echo, axial diffusion and ADC through the brain. COMPARISON: CT head and CT head angiogram 04/13/2024, CT head 11/05/2023. FINDINGS: Image quality: Diagnostic CSF Spaces: Basal cisterns are patent. No extra-axial fluid collections. Ventricles are normal in size and shape. Brain: Right parietal right basal chronic infarct. No intracranial masses or hemorrhage. Mehta/white matter interface is normal. Brainstem appears normal. Diffusion-weighted images demonstrate no acute infarct. No chronic ischemic insults. Normal intravascular flow voids are present. Skull and face: Calvarium has normal marrow signal. Orbits appear normal. Sinuses: Sinuses and mastoids are clear. IMPRESSION: No abnormal restricted diffusion to suggest acute infarct. Chronic right infarcts. Approved by: Melany Brown M.D.,Ph.D. on 04/13/2024 at 20:54
[2024-04-13] MEDS: SODIUM CHLORIDE 0.9% 1,000 ML 500 ML IV (18:23)
--- NOTE | 2024-04-17 16:22 | ST-OP ANOTE ---
Physical, Occupational & Speech Therapy At [facility] Speech Therapy Note [employer] received call from pt with questions re: scheduling MBSS at this hospital per recommendation from his neurologist. This [employer] does not know this pt, but can see a swallowing screen from 06/14/23 recommending an MBSS, which was not followed through. Per diagnostic imaging, no order in place for MBSS. [employer] called PCP medical office (Dr. Joanie Miller) and requested PCP follow up with pt as able. Additionally, [employer] encouraged pt to call his PCP and neurologist and discuss swallowing issues and need for MBSS order with them. Pt expressed he will do so.
== END 2024-04-13 21:35 | disposition home or self-care (01) ==
PROVIDERS: Emergency Medicine; Emergency Provider Emergency Medicine; Family Provider Internal Medicine; PCP Internal Medicine
DX: R42 Dizziness and giddiness (principal); E86.0 Dehydration; R53.1 Weakness; I69.354 Hemiplegia and hemiparesis following cerebral infarction affecting left non-dominant side; R26.81 Unsteadiness on feet; Z87.891 Personal history of nicotine dependence
CPT/HCPCS: 36415; 70450; 70496; 70498; 70551; 80053; 82550; 83690; 83735; 83880; 84484; 85025; 85610; 85730; 93005; 96360; 96361; 99284; Q9967

== ENCOUNTER → 2024-06-18 11:32 | Outpatient (CLI) | payer MEDICARE, SELFPAY ==
[2021-03-18 13:58] VITALS: BMI 34.4
== END ==
PROVIDERS: Family Provider Internal Medicine; PCP Internal Medicine; Referring Provider Student in an Organized Health Care Education/Training Program; Visit Provider Student in an Organized Health Care Education/Training Program
DX: D86.9 Sarcoidosis, unspecified (principal); J98.4 Other disorders of lung; Z87.891 Personal history of nicotine dependence; R94.2 Abnormal results of pulmonary function studies
CPT/HCPCS: 94060; 94726; 94729

== ENCOUNTER → 2024-09-20 06:25 | Outpatient (CLI) | payer MEDICARE, SELFPAY ==
[2021-03-18 13:58] VITALS: BMI 34.4
[2024-09-20 08:09] LABS: Add Manual Diff / Slide Review NO; Basophils Absolute Auto 0 /uL (0-100); Basophils Percent Auto 0.6 % (0-2); Eosinophils Absolute Auto 100 /uL (0-450); Eosinophils Percent Auto 0.9 % (2-4); Hematocrit 45.3 % (41-53); Hemoglobin 15.6 g/dL (13.5-17.5); Lymphocytes Absolute Auto 1100 /uL (1100-4500); Lymphocytes Percent Auto 14.4 % (25-40); Mean Corpuscular HGB Conc 34.5 % (30-36); Mean Corpuscular Hemoglobin 32.9 PG (26-34); Mean Corpuscular Volume 95.6 fL (80-100); Monocytes Absolute Auto 700 /uL (0-900); Monocytes Percent Auto 9.3 % (3-14); Neutrophils Absolute Auto 5600 /uL (1500-7000); Neutrophils Percent Auto 74.8 % (50-75); Platelet Count 172 X10^3/uL (150-400); Red Blood Cell Count 4.74 X10^6/uL (4.5-5.9); White Blood Cell Count 7.5 X10^3/uL (4.5-11.0)
[2024-09-20 08:31] LABS: Lithium 1.1 mmol/L (0.6-1.2)
[2024-09-20 08:36] LABS: Alanine Aminotransferase 11 IU/L (<50); Albumin 4.3 g/dL (3.5-5.0); Albumin Globulin Ratio 2.2 (1.0-2.8); Alkaline Phosphatase 91 U/L (38-126); Aspartate Aminotransferase 20 IU/L (17-59); BUN Creatinine Ratio 18.9 (6-22); Bilirubin Total 1.1 mg/dL (0.2-1.3); Blood Urea Nitrogen 21 mg/dL (9-20); Carbon Dioxide 25 mmol/L (22-32); Chloride 105 mmol/L (98-107); Estimated Glomerular Filt Rate > 60 mL/min (>60); Glucose 71 mg/dL (70-99); HEMOLYSIS 19 (0-50); Potassium 4.5 mmol/L (3.4-5.1); Sodium 138 mmol/L (137-145); Total Protein 6.3 g/dL (6.3-8.2)
[2024-09-20 09:05] LABS: TSH w/ Reflex to FT4 0.43 uIU/mL (0.47-4.68)
[2024-09-20 09:34] LABS: Free T4, Direct Thyroxine 1.58 ng/dL (0.78-2.19)
== END ==
PROVIDERS: Family Provider Internal Medicine; PCP Internal Medicine; Referring Provider Psychiatry & Neurology Psychiatry; Visit Provider Psychiatry & Neurology Psychiatry
DX: Z79.899 Other long term (current) drug therapy (principal)
CPT/HCPCS: 36415; 80053; 80178; 84439; 84443; 85025

== ENCOUNTER → 2024-10-26 07:37 | Outpatient (CLI) | payer MEDICARE, SELFPAY ==
[2021-03-18 13:58] VITALS: BMI 34.4
--- NOTE | 2024-10-26 07:39 | DI.ECHO.S_ITS ---
[facility] : : [address] : : [place] : : [address] : : Phone: [phone] Echocardiogram Report + + :Name: FAHAD SALAZAR Study Date: 10/26/2024 Height: 67 in : :Hospital ReadingLocation: Weight: 161 lb: : Gender: Male BSA: 1.8 m2 : :: 1955 Age: 69 yrs BP: 98/73 mmHg: :Reason For Study: SHORTNESS OF BREATH : :Ordering Physician: ASIM, : :VÍCTOR Performed By: Jamil Araujo : :Referring: VÍCTOR DAILEY : + + Interpretation Summary The left ventricle is normal in size. The left ventricular ejection fraction is normal. The ejection fraction is estimated to be 60-65%. No significant change in LVEF from the previous study. The right ventricle is normal in size and function. Echodensity in IAS is c/w a ASD closure device is noted Device appears to be intact. No obvious shunt seen across the device. No significant valvular pathology seen. There is aortic root sclerosis/calcification. Procedure: A two-dimensional transthoracic echocardiogram with color flow and Doppler was performed. The study quality was technically good. Comparison is made with the echocardiogram of 12/30/20. The patient was in normal sinus rhythm during the exam. Left Ventricle: The left ventricle is normal in size. There is normal left ventricular wall thickness. There is no ventricular septal defect visualized. The ejection fraction is estimated to be 60-65%. The left ventricular ejection fraction is normal. There are no focal wall motion abnormalities. Diastolic parameters suggest a relaxation abnormality of the left ventricle, consistent with probable normal filling pressures. Right Ventricle: The right ventricle is normal in size and function. Atria: The left atrial size is normal. There has been no significant change since the previous study. Right atrial size is normal. Echodensity in IAS is c/w a ASD closure device is noted Device appears to be intact. No obvious shunt seen across the device. Mitral Valve: The mitral valve leaflets appear normal. There is no evidence of stenosis, fluttering, or prolapse. There is trace mitral regurgitation. Aortic Valve: The aortic valve is trileaflet. The aortic valve opens well. There is no aortic valve stenosis. No aortic regurgitation is present. Tricuspid Valve: The tricuspid valve leaflets are thin and pliable. There is a trace or physiologic amount of tricuspid regurgitation. Pulmonary artery pressures cannot be estimated because of the lack of a measurable TR jet velocity. Pulmonic Valve: The pulmonic valve is not well seen, but is grossly normal. There is no pulmonic valvular regurgitation. Great Vessels: The aortic root is normal size. There is aortic root sclerosis/calcification. The dimensions of the ascending aorta are normal. The pulmonary artery is normal size. The inferior vena cava was not visualized. Pericardium/ Pleura There is no pericardial effusion. There is no pleural effusion. MMode/2D Measurements & Calculations LVIDd: 4.4 cm LVOT diam: 2.0 cm LVIDs: 3.0 cm Ao root diam: 3.1 cm FS: 30.3 % asc Aorta Diam: 3.4 cm EPSS: 1.0 cm IVSd: 0.93 cm LVPWd: 0.96 cm LV peguero. diameter/BSA (cm/m^2): 2.4 LV sys. diameter/BSA (cm/m^2): 1.7 LA A2 area: 15.3 cm2 RA long axis: 4.8 cm LA A4 area: 17.3 cm2 RA area: 13.4 cm2 LA length (vol): 5.1 cm RA vol: 32.0 ml LA vol: 44.0 ml RA : 17.3 ml/m2 LA vol index: 23.9 ml/m2 RVD1 (basal): 3.1 cm RVD2 (mid): 2.6 cm TAPSE: 2.0 cm Doppler Measurements & Calculations Ao V2 max: 134.0 cm/sec LVOT Max Primo: 106.0 cm/sec Ao V2 mean: 99.9 cm/sec LV V1 max P.5 mmHg Ao max P.2 mmHg LV V1 VTI: 20.2 cm Ao mean P.3 mmHg CARMEN(I,D): 2.5 cm2 Ao V2 VTI: 25.4 cm CARMEN(V,D): 2.5 cm2 sev ratio: 0.80 CARMEN indexed to BSA (cm^2/m^2): 1.4 MV E max primo: 67.7 cm/sec TR max primo: 225.4 cm/sec MV A max primo: 84.8 cm/sec TR max P.3 mmHg MV E/A: 0.80 PA V2 max: 92.2 cm/sec Med Peak E' Primo: 6.8 cm/sec PA V2 mean: 63.5 cm/sec E/E' med: 9.9 PA mean P.8 mmHg Lat Peak E' Primo: 9.2 cm/sec PA pr(Accel): 68.7 mmHg E/E' lat: 7.4 E/e' average: 8.6 MV dec time: 0.21 sec SV(OT): 63.5 ml Reading Physician:06:25 PM
--- NOTE | 2024-10-26 07:39 | DI.NM.S_ITS ---
PROCEDURE: NM MAHESH PERF SPECT REST & STR Rest and exercise myocardial perfusion SPECT with gated imaging and ejection fraction RADIOPHARMACEUTICAL: 26.9 mCi Tc-99m sestamibi IV at rest and 26.3 mCi Tc-99m sestamibi IV at peak exercise. A two day-protocol was performed. INDICATIONS: Shortness of breath TECHNIQUE: Radiopharmaceutical was injected at peak stress test, and also at rest. SPECT images were obtained. SPECT myocardial perfusion images were displayed in short axis, horizontal long axis, and vertical long axis views. Gated images were reviewed using Orderlord software. COMPARISON: None. CARDIAC STRESS: A standard Obey treadmill exercise tolerance test was performed by the patient under the supervision of an attending staff. The patient exercised for 5 minutes and 36 seconds; functional aerobic impairment (CHALO) is +26%. Hemodynamic data: There is normal blood pressure and heart rate response to exercise stress. Patient achieved 95% of maximum predicted heart rate at peak exercise. Symptoms: Patient denied chest pain during exercise. EKG: No diagnostic EKG changes of ischemia; no significant ectopy. FINDINGS: Raw data: There is good myocardial labeling by radiotracer. No significant motion artifacts. Left ventricle function: Gated images demonstrate normal left ventricle wall thickening. No segmental wall motion abnormality. No transient ischemic dilation; TID is 0.64 (normal less than 1.3). The left ventricle resting end-diastolic volume is 90 mL. Left ventricle stress ejection fraction is 91% ; normal values are above 45%. Myocardial perfusion: There is a mildly intense reversible inferior wall defect that resolves with prone imaging, suggesting artifact. No ischemia and no infarction present. IMPRESSION: Low risk, normal treadmill nuclear stress test from inducible ischemia standpoint. 1) There is a mildly intense reversible inferior wall defect that resolves with prone imaging, suggesting artifact. No ischemia and no infarction present. 2) Normal left ventricular size, wall motion, and systolic function (EF post stress 91%). 3) No diagnostic ST changes during exercise or recovery. 4) No angina during the study. 5) No prior nuclear stress test available for comparison. Dictated by: Carlitos Weir MD on 10/30/2024 at 16:45 Approved by: Carlitos Weir MD on 10/30/2024 at 16:48
== END ==
PROVIDERS: Family Provider Internal Medicine; PCP Internal Medicine; Referring Provider Internal Medicine; Visit Provider Internal Medicine
DX: R06.02 Shortness of breath (principal)
CPT/HCPCS: 78452; 93017; 93306; A9502

== ENCOUNTER 2025-01-02 20:59 | Emergency (ER) | payer MEDICARE, SELFPAY ==
[2024-12-24 09:24] VITALS: BMI 34.4
[2025-01-02 21:26] VITALS: BP 116/61; PULSE 73; RESP 18; TEMP 36.5; O2SAT 100; BMI 26.6
[2025-01-02 22:12] VITALS: BP 121/74; PULSE 83; O2SAT 99
[2025-01-02 22:17] LABS: Appearance Urine UA CLEAR; Bilirubin Urine UA NEGATIVE (NEGATIVE); Color Urine UA YELLOW; Glucose Urine UA NEGATIVE (Negative); Ketones Urine UA NEGATIVE (NEGATIVE); Leukocyte Esterase Urine UA TRACE (NEGATIVE); Nitrite Urine UA NEGATIVE (Negative); Occult Blood Urine UA NEGATIVE (Negative); Protein Urine UA NEGATIVE (Negative); Specific Gravity Urine UA 1.025 (1.000-1.035); Urobilinogen Urine UA 0.2 E.U./dL (0.2); pH Urine UA 6.0 (4.5-8.0)
--- NOTE | 2025-01-02 22:22 | PC.NURSE ---
Pt has pain and lump to L groin area that he reports he noticed today while sitting down. States increased pain with palpation
[2025-01-02 22:23] LABS: Culture Indicated Urine Cult Not Indicated
[2025-01-02 22:30] VITALS: BP 113/60; PULSE 67; O2SAT 98
[2025-01-02 23:00] VITALS: BP 123/62; PULSE 66; O2SAT 97
--- NOTE | 2025-01-02 23:43 | ED.MALEGU ---
HPI - Male Genitourinary General Chief complaint: Urogenital-Male Stated complaint: groin pain (possible hernia) Time Seen by Provider: 01/02/25 23:35 Source: patient Mode of arrival: Ambulatory History of Present Illness HPI Narrative: Patient is a 69-year-old male history of multiple CVAs Watchman on aspirin presenting today with sudden onset of right groin pain. He does not remember what he was doing but he feels a bulge in his groin it is not related to his testicle he has no testicle pain no changes in bowel or bladder habits. He is reports he is quite miserable and pacing around the room. No back pain no nausea no vomiting. Related Data Home Medications ?Medication ?Instructions ?Recorded ?Confirmed Vitamin B-12 1 tab PO DAILY 02/21/18 08/21/24 cholecalciferol (vitamin D3) 10 10 mcg PO DAILY 02/06/20 08/21/24 mcg (400 unit) capsule calcium citrate 1,000 mg PO DAILY 03/26/21 08/21/24 multivitamin 1 tab PO BID 03/24/22 08/21/24 albuterol sulfate 90 mcg/actuation 2 puff inhalation Q4-6H PRN 06/06/24 08/21/24 aerosol inhaler carbidopa 25 mg-levodopa 100 mg 1 tab PO TID 06/06/24 08/21/24 tablet Previous Rx's ?Medication ?Instructions ?Recorded Disabled Parking #1 ea 08/02/19 ketoconazole 2 % shampoo See Rx Instructions .Route 11/30/19 .COMPLEX #360 mL levothyroxine 100 mcg tablet 88 mcg (0.88 x 100 mcg) PO QAM #90 10/28/22 tabs lurasidone 60 mg tablet (Latuda) 60 mg PO DAILY #90 tabs 04/10/24 clonazepam 2 mg tablet 2 mg PO TID PRN see below #90 tabs 05/14/24 azithromycin 250 mg tablet See Rx Instructions PO .COMPLEX #6 06/08/24 tabs prednisone 20 mg tablet 40 mg (2 x 20 mg) PO DAILY #14 tabs 06/08/24 armodafinil 150 mg tablet 150 mg PO QAM To stay awake and 06/28/24 Held on 10/17/24. alert #30 tabs Instructions: Pt not taking at this time. bupropion HCl 300 mg 24 hr tablet, 300 mg PO DAILY #90 tabs 09/19/24 extended release lithium carbonate 300 mg 300 mg PO BEDTIME #90 tabs 11/12/24 tablet,extended release dextroamphetamine-amphetamine ER 60 mg (3 x 20 mg) PO QAM #90 caps 12/24/24 20 mg 24hr capsule,extend release lithium carbonate 450 mg 450 mg PO BEDTIME #90 tabs 12/24/24 tablet,extended release eszopiclone 3 mg tablet (Lunesta) 3 mg PO BEDTIME #30 tabs 01/01/25 Allergies Allergy/AdvReac Type Severity Reaction Status Date / Time amoxicillin Allergy Severe Face, Verified 08/21/24 11:26 chest, upper back - beat red. Welts. ketorolac (KETOROLAC) Allergy Unknown Verified 08/21/24 11:26 doxycycline (DOXYCYCLINE) AdvReac Mild ITCHING Verified 08/21/24 11:26 NSAIDS (Non-Steroidal AdvReac Unknown TO AVOID Verified 08/21/24 11:26 Anti-Inflamma (NSAIDS R/T (NON-STEROIDAL ANTI-INFLAMMA) GASTRIC BYPASS controlled substance AdvReac Unknown Uncoded 08/21/24 11:26 agreement Patient History Medical History Restrictive lung disease Sarcoidosis BPH w urinary obs/LUTS Lower urinary tract symptoms (LUTS) Idiopathic hypersomnia with long sleep time (~2007) Obstructive sleep apnea, adult Complex sleep apnea syndrome Insomnia due to medical condition (~2007) Fatigue due to sleep pattern disturbance Iron deficiency anemia following bariatric surgery (~02/03/15) Anemia (03/29/12) Kidney stone (08/17/10) Fibromyalgia (02/03/17) Suicidal ideation (09/28/14) ASD (atrial septal defect) (03/18/13) Osteoarthropathy (02/03/17) Nocturnal hypoxemia (01/28/20) Moderate persistent asthma without complication (01/28/20) History of sarcoidosis (11/07/14) Migraine headache Benzodiazepine dependence (~2003) Facet arthropathy, lumbar Essential tremor Dysequilibrium Mixed hyperlipidemia (~07/30/13) Major depressive disorder, recurrent episode, severe Anxiety Pneumonia Paroxysmal atrial fibrillation S/P ECT (electroconvulsive therapy) H/O renal calculi Vitamin B12 deficiency (02/19/11) Psoriasis (~07/30/13) Chronic obstructive pulmonary disease (08/05/17) Narcotic dependence (09/01/16) Chronic left shoulder pain (01/20/16) Obesity with body mass index (BMI) of 30.0 to 39.9 (12/06/14) Cognitive disorder (04/24/14) Patent foramen ovale History of stroke (~06/20/12) Hypothyroidism (~11/16/10) Post traumatic stress disorder (PTSD) (~2004) Surgical History S/P patent foramen ovale closure (12/21/17) S/P laparoscopic cholecystectomy (10/18/18) S/P lumbar laminectomy (~10/2017) History of Cris-en-Y gastric bypass (~2003) History of total shoulder replacement (~12/2015) Family History Father No problems noted. Mother No problems noted. 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 yeimy/buddhism: [employer] travel history: over 6 months ago and other Tobacco: How many years used: 10 Smokeless tobacco user: other quit status: quit date established second hand exposure: Yes (Childhood) alcohol intake: current substance use type: does not use additional social history: Currently involved in a legal dispute with his son over the management of the patient's stepfather's estate. This has caused him significant levels of anxiety and frustration as he attempts to navigate this problem with his family. alcohol intake frequency: holidays/special occasions only Exam Initial Vital Signs Initial Vital Signs: Vital Signs Temperature 97.7 F 01/02/25 21:26 Pulse Rate 73 01/02/25 21:26 Respiratory Rate 18 01/02/25 21:26 Blood Pressure 116/61 01/02/25 21:26 Pulse Oximetry 100 01/02/25 21:26 Oxygen Delivery Method Room Air 01/02/25 21:26 GENERAL: 69-year-old male appears mildly uncomfortable pacing room CARDIOVASCULAR: peripheral pulses in tact, cap refill <2 sec RESPIRATORY: No respiratory distress, speaks in full sentences without difficulty ABDOMEN: Soft, nontender, no guarding or rebound : Left inguinal region small bulge is felt it is easily reducible pain incidentally improved EXTREMITIES: Normal range of motion, no clubbing or edema. Neurovascularly intact NEUROLOGICAL: Cranial nerves II through XII grossly intact. Normal gait and speech. SKIN: Warm, dry, no petechiae, no rashes or lesions. Course Orders Ordered: ED Orders 01/02/25 22:06 Urinalysis and Microscopic Stat Vital Signs Vital signs: Vital Signs - 8 hr 01/02/25 21:26 01/02/25 22:12 01/02/25 22:12 Temperature 97.7 F Pulse Rate 73 83 Respiratory Rate 18 Blood Pressure 116/61 121/74 Pulse Oximetry 100 99 Oxygen Delivery Method Room Air 01/02/25 22:30 01/02/25 22:30 01/02/25 23:00 Temperature Pulse Rate 67 66 Respiratory Rate Blood Pressure 113/60 Pulse Oximetry 98 97 Oxygen Delivery Method 01/02/25 23:00 Temperature Pulse Rate Respiratory Rate Blood Pressure 123/62 Pulse Oximetry Oxygen Delivery Method MDM - Male Genitourinary Lab Data Labs: Lab Results 01/02/25 Range/Units 22:06 Urine Color Yellow Urine Appearance Clear Urine pH 6.0 (4.5-8.0) Ur Specific [place] 1.025 (1.000-1.035) Urine Protein Negative (Negative) Urine Glucose (UA) Negative (Negative) g/dL Urine Ketones Negative (NEGATIVE) Urine Occult Blood Negative (Negative) Urine Nitrate Negative (Negative) Urine Bilirubin Negative (NEGATIVE) Urine Urobilinogen 0.2 (0.2) E.U./dL Ur Leukocyte Esterase Trace H (NEGATIVE) Urine RBC 0-1/hpf (0-5/HPF) Urine WBC 1-5/hpf (0-5/HPF) Ur Squamous Epith Cells 0-1 /hpf (0-5/HPF) Urine Bacteria Occasional (0-1) (None) Urine Mucus 2+ H (Negative) Ur Culture Indicated? Cult not indicated Vol Urine Centrifuged 10ml (spun) MDM Narrative Medical decision making narrative: Patient is 69-year-old male history of multiple CVAs Watchman procedure presenting today with left groin pain and swelling. It is easily reducible with minimal effort no pain medication required. Patient had instant relief. Inguinal hernia identified clinically. No concern for incarceration no need for blood work or imaging at this time. Needs outpatient workup and referral to surgery. Discharge Plan Departure Patient Disposition: Home Clinical Impression: Inguinal hernia Instructions: Groin Hernia -- Adult Activity Restrictions/Additional Instructions: *You have been diagnosed with inguinal hernia *What to do: At this time avoid heavy lifting. If you feel the bulge in pain again lay down and try to push it in yourself. You will ultimately need surgery for definitive correction. Please call your PCP for referral *Continue to take medications as directed Tylenol Motrin as needed for pain or soreness *Follow up with your primary care provider in 2-3 days or call [phone] [facility] surgeon *Return to ER if you should have inability to reduce hernia increasing pain or any new, worsening or concerning symptoms Prescriptions: No Action cholecalciferol (vitamin D3) 10 mcg (400 unit) capsule 10 mcg PO DAILY bupropion HCl 300 mg tablet extended release 24 hr 300 mg PO DAILY Qty: 90 3RF lithium carbonate 450 mg tablet extended release 450 mg PO BEDTIME Qty: 90 3RF dextroamphetamine-amphetamine 20 mg capsule,extended release 24hr 60 mg PO QAM Qty: 90 0RF levothyroxine 100 mcg tablet 88 mcg PO QAM Qty: 90 3RF lithium carbonate 300 mg tablet extended release 300 mg PO BEDTIME Qty: 90 3RF lurasidone [Latuda] 60 mg tablet 60 mg PO DAILY Qty: 90 3RF Rx Instructions: must administer with food (at least 350 calories) clonazepam 2 mg tablet 2 mg PO TID MDD MDD 6mg PRN (Reason: see below) Qty: 90 2RF Rx Instructions: Take one tablet (2mg) by mouth three times daily PRN prednisone 20 mg tablet 40 mg PO DAILY Qty: 14 0RF azithromycin 250 mg tablet See Rx Instructions PO .COMPLEX Qty: 6 0RF Rx Instructions: For 250 mg dose pack: take 500 mg today (day 1), then 250 mg for 4 days (days 2-5) PO eszopiclone [Lunesta] 3 mg tablet 3 mg PO BEDTIME Qty: 30 3RF ketoconazole 2 % shampoo See Rx Instructions .ROUTE .COMPLEX Qty: 360 5RF Dose Instruction: APPLY BY TOPICAL ROUTE EVERY DAY NEEDED TO THE AFFECTED AREA(S), LATHER, LEAVE IN PLACE FOR 5 MINUTES, AND THEN RINSE OFF WITH WATER Rx Instructions: APPLY BY TOPICAL ROUTE EVERY DAY NEEDED TO THE AFFECTED AREA(S), LATHER, LEAVE IN PLACE FOR 5 MINUTES, AND THEN RINSE OFF WITH WATER calcium citrate 250 mg calcium tablet 1,000 mg PO DAILY (DME) Disabled Parking Qty: 1 0RF Rx Instructions: Patient qualifies for disabled parking as per the attached form. Vitamin B-12 1 tab PO DAILY multivitamin Tablet 1 tab PO BID carbidopa-levodopa 25-100 mg tablet 1 tab PO TID albuterol sulfate 90 mcg/actuation HFA aerosol inhaler 2 puff inhalation Q4-6H PRN armodafinil 150 mg tablet 150 mg PO QAM Qty: 30 3RF Referrals: [facility] [Provider Group] Miscellaneous,[facility] [Primary Care Provider, Medical] Stand Alone Forms: Patient Portal/API
== END 2025-01-02 23:57 | disposition home or self-care (01) ==
PROVIDERS: Emergency Provider Emergency Medicine
DX: K40.90 Unilateral inguinal hernia, without obstruction or gangrene, not specified as recurrent (principal)
CPT/HCPCS: 81001; 99282

== ENCOUNTER → 2025-01-04 06:35 | Outpatient (CLI) | payer MEDICARE, SELFPAY ==
[2024-12-24 09:24] VITALS: BMI 34.4
[2025-01-04 08:43] LABS: Lithium 0.6 mmol/L (0.6-1.2)
== END ==
PROVIDERS: PCP Internal Medicine; Referring Provider Psychiatry & Neurology Psychiatry; Visit Provider Psychiatry & Neurology Psychiatry
DX: Z79.899 Other long term (current) drug therapy (principal)
CPT/HCPCS: 36415; 80178

== ENCOUNTER 2025-02-05 06:06 | Day surgery (SDC) | payer MEDICARE, SELFPAY ==
[2024-12-24 09:24] VITALS: BMI 34.4
[2025-01-10 13:03] VITALS: BMI 26.6
[2025-02-05] VITALS (11 sets, daily range): BP systolic 110–130; BP diastolic 51–84; PULSE 74–80; RESP 10–18; TEMP 36.6–37.3; O2SAT 78–100
--- NOTE | 2025-02-05 06:34 | PM.PREOP ---
Pre-operative Note Interval Note History & Physical reviewed/Exam performed by Physician: Yes Changes to H&P: No ASA Class (for procedural sedation): II
[2025-02-05] MEDS: FAMOTIDINE 20 MG/2 ML VIAL IV (07:17)
[2025-02-05] MEDS: ACETAMINOPHEN IV 1,000 MG/100 ML VIAL 400 MG IV (07:18)
[2025-02-05] MEDS: LACTATED RINGERS 1,000 ML 42 ML IV (07:22)
--- NOTE | 2025-02-05 07:23 | SUR.OPER ---
Supine on padded OR bed, head on pillow, arms padded and tucked at sides, legs uncrossed, safety belt at thigh, tape over blanket over lower legs . Provider approved final positioning
--- NOTE | 2025-02-05 08:39 | PM.OP.1 ---
Operative Date/Time/Diagnoses Date of procedure: 02/05/25 Time of procedure: 08:40 Pre-op diagnosis: Left inguinal hernia Post-op diagnosis: same (Indirect left inguinal hernia) Procedure & Clinicians Procedure: Laparoscopic left inguinal hernia repair with mesh (TEP) Same procedure(s) as scheduled: Yes Indications: 69yo M with symptomatic LIH Surgeon: Vinnie Soliman Assisted?: Yes Manager Track: Bradly Carlos Anesthesia Type: General Operative Notes Findings: Indirect left inguinal hernia Closure Type: primary Specimen(s): none sent Prosthetic devices, grafts, tissues, transplants, or devices: Mesh Applied: implant(s) (Mesh) Estimated Blood Loss (mL): 5 Blood products transfused: none Procedure in detail: After informed consent and satisfactory general endotracheal anesthesia, the groins were shaved, prepped and draped in the usual sterile manner.? The patient received appropriate preoperative antibiotics and DVT prophylaxis.? Surgical time-out was performed with all team members in agreement.? The correct side was marked in the preoperative holding area.? The preperitoneal space was entered via an infraumbilical incision.? An 0 Vicryl [id number] suture was placed on the anterior rectus sheath incision lateral to midline, ipsilateral to the side of the hernia.? The rectus muscle was retracted laterally and the preperitoneal space was dissected with a blunt 10 mm instrument.? The 10 mm trocar was inserted and the preperitoneal space was insufflated to a pressure of 12 mmHg with carbon dioxide gas.? This allowed direct visual placement of two 5 mm trocars in the suprapubic midline.? The patient was placed in Trendelenburg position.? We further dissected the preperitoneal space and myopectineal orifice including the femoral, direct and indirect spaces.? We dissected out lateral and an ilioinguinal nerve block was performed under direct vision by injecting 10 cc of 0.5% Marcaine with epinephrine into the transversus muscle under direct vision 2 fingerbreadths medial to the anterior superior iliac spine.? A total of 30 cc of 0.5% Marcaine with epinephrine was used.? The remainder was injected into the musculature at the end of the procedure for postoperative analgesia.? Once the preperitoneal space was dissected free we noticed an indirect inguinal hernia. There were no direct or femoral defects.? The peritoneum was dissected proximally off of the cord structures to allow room for the mesh.?A large Bard 3D Duramax mesh was selected and inserted into the preperitoneal space and unrolled until it was in perfect position and noted to lay in a flat position without wrinkling.? The mesh covered all 3 potential hernia defects widely.? Hemostasis was excellent throughout.? I held the lower border of the mesh with the grasper as we released the carbon dioxide and the peritoneum was noted to relax in a very pleasing manner against the mesh holding it in place.? No tacking or fixation was required. The trocars were removed and there was no bleeding noted at the trocar sites.? The 0 Vicryl [id number]-[id number]-[id number] suture was tied on the umbilical fascia with no palpable fascial defects.? The skin incisions were closed using 4-0 Monocryl in a subcuticular manner.? Dermabond glue was applied as a final dressing.? The instrument, sponge and needle counts were all correct x2.? The patient tolerated the procedure well and was extubated in the operating room and transported to the recovery area in stable condition. Complications: none Post-operative Condition: stable Disposition: PACU Plan for aftercare: PACU then home
== END 2025-02-05 10:15 | disposition home or self-care (01) ==
PROVIDERS: PCP Internal Medicine; Referring Provider Surgery; Visit Provider Surgery
PROC: 0YQ64ZZ Repair Left Inguinal Region, Percutaneous Endoscopic Approach (ICD-10-PCS; CPT 49650; principal; 2025-02-05 07:45)
DX: K40.90 Unilateral inguinal hernia, without obstruction or gangrene, not specified as recurrent (principal); Z87.891 Personal history of nicotine dependence; Z86.73 Personal history of transient ischemic attack (TIA), and cerebral infarction without residual deficits; Z79.82 Long term (current) use of aspirin
CPT/HCPCS: 49650; C1781; J0131; J0689; J1100; J1171; J2405; J2704; J3010; J3490; J7120

== ENCOUNTER 2025-03-22 17:34 | Emergency (ER) | payer MEDICARE, SELFPAY ==
[2024-12-24 09:24] VITALS: BMI 34.4
[2025-03-22] VITALS (13 sets, daily range): BP systolic 101–126; BP diastolic 54–72; PULSE 68–83; RESP 10–23; TEMP 36.8; O2SAT 96–100; BMI 25.8
--- NOTE | 2025-03-22 17:48 | EKG_ITS ---
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
--- NOTE | 2025-03-22 17:50 | DI.RAD.S_ITS ---
PROCEDURE: XR CHEST 1V INDICATIONS: Chest Pain TECHNIQUE: One view of the chest was acquired. COMPARISON: [facility], CR, XR CHEST 1V, 11/05/2023, 12:46. [facility], CR, XR CHEST 2V, 12/23/2020, 19:16. FINDINGS: Surgical changes and devices: Left shoulder arthroplasty. Partially visualized ACDF hardware. Lungs and pleura: Stable blunted appearance of the right costophrenic angle. The lungs are otherwise clear. No pleural effusions or pneumothorax. Mediastinum: Mediastinal contours appear normal. Heart size is normal. Bones and chest wall: No suspicious bony lesions. Overlying soft tissues appear unremarkable. IMPRESSION: No acute cardiopulmonary abnormality is seen. Dictated by: Eyal Hartmann M.D. on 03/22/2025 at 18:40 Approved by: Eyal Hartmann M.D. on 03/22/2025 at 18:40
[2025-03-22] MEDS: ASPIRIN 81 MG CHEW TAB 324 MG PO (18:30)
[2025-03-22 18:32] LABS: INR 1.0 (0.9-1.3); Prothrombin Time 11.1 SECONDS (9.4-12.5)
[2025-03-22 18:34] LABS: PTT Partial Thromboplastin Tim 33 SECONDS (25.1-36.5)
[2025-03-22 18:37] LABS: Alanine Aminotransferase 10 IU/L (<50); Albumin 5.3 g/dL (3.5-5.0); Albumin Globulin Ratio 1.8 (1.0-2.8); Alkaline Phosphatase 89 U/L (38-126); Blood Urea Nitrogen 19 mg/dL (9-20); Calcium 10.3 mg/dL (8.4-10.2); Carbon Dioxide 24 mmol/L (22-32); Chloride 103 mmol/L (98-107); Creatine Kinase 34 U/L (55-170); Estimated Glomerular Filt Rate 59 mL/min (>60); Globulin 3.0 g/dL (1.7-4.1); Glucose 95 mg/dL (70-99); Lipase 109 U/L (23-300); Magnesium 2.4 mg/dL (1.6-2.3); Potassium 4.6 mmol/L (3.4-5.1); Sodium 140 mmol/L (137-145); Total Protein 8.3 g/dL (6.3-8.2)
[2025-03-22 18:41] LABS: HEMOLYSIS 53 (0-50)
--- NOTE | 2025-03-22 18:44 | ED.CHESTPAIN ---
HPI - Chest Pain General Chief Complaint: Chest Pain Stated Complaint: Chest pain Time Seen by Provider: 03/22/25 18:43 Source: patient and family Mode of arrival: Family Vehicle Limitations: no limitations History of Present Illness HPI narrative: 70-year-old male patient with a history of CVA, dyslipidemia, hypothyroidism, Parkinson's, ADD, anxiety/depression who presents with inferior substernal discomfort since 4:30 p.m., 2 hours ago which is 3 to 4/10 with some shortness of breath but no diaphoresis or nausea. No previous symptoms like this no previous cardiac disease. Denies increased stress or anxiety of late. No vomiting or diarrhea. Related Data Home Medications ?Medication ?Instructions ?Recorded ?Confirmed Vitamin B-12 1 tab PO DAILY 02/21/18 02/27/25 cholecalciferol (vitamin D3) 10 10 mcg PO DAILY 02/06/20 02/27/25 mcg (400 unit) capsule carbidopa 25 mg-levodopa 100 mg 1 tab PO TID 06/06/24 02/27/25 tablet aspirin 81 mg tablet,delayed 81 mg PO DAILY To supplement 01/09/25 02/27/25 release Watchman implant levothyroxine 88 mcg tablet 88 mcg PO DAILY Thyroid 01/09/25 02/27/25 magnesium 200 mg tablet 400 mg PO BEDTIME 02/05/25 02/27/25 Previous Rx's ?Medication ?Instructions ?Recorded Disabled Parking #1 ea 08/02/19 ketoconazole 2 % shampoo See Rx Instructions .Route 11/30/19 .COMPLEX #360 mL clonazepam 2 mg tablet 2 mg PO TID PRN see below #90 tabs 05/14/24 bupropion HCl 300 mg 24 hr tablet, 300 mg PO DAILY #90 tabs 09/19/24 extended release lithium carbonate 450 mg 450 mg PO BEDTIME #90 tabs 12/24/24 tablet,extended release zolpidem 12.5 mg tablet,extended 12.5 mg PO BEDTIME #30 tabs 02/21/25 release,multiphase dextroamphetamine-amphetamine ER 30 mg PO DAILY #60 caps 03/14/25 30 mg 24hr capsule,extend release lurasidone 40 mg tablet 40 mg PO DAILY #60 tabs 03/19/25 Allergies Allergy/AdvReac Type Severity Reaction Status Date / Time amoxicillin Allergy Severe Face, Verified 03/22/25 17:53 chest, upper back - beat red. Welts. ketorolac (KETOROLAC) Allergy Unknown Face gets Verified 03/22/25 17:53 flushed and arizmendi. doxycycline (DOXYCYCLINE) AdvReac Mild ITCHING Verified 03/22/25 17:53 NSAIDS (Non-Steroidal AdvReac Unknown TO AVOID Verified 03/22/25 17:53 Anti-Inflamma (NSAIDS R/T (NON-STEROIDAL ANTI-INFLAMMA) GASTRIC BYPASS controlled substance AdvReac Unknown Uncoded 03/22/25 17:53 agreement Review of Systems Review of Systems ROS Unobtainable: All systems reviewed & are unremarkable except as noted in HPI and below Cardiovascular Cardiovascular: Reports as per HPI Respiratory Respiratory: Reports as per HPI Gastrointestinal Gastrointestinal: Reports as per HPI Patient History Medical History (Updated 03/22/25 @ 22:42 by Jeff Tovar MD) MRSA (methicillin resistant Staphylococcus aureus) Parkinsons ADHD PUD (peptic ulcer disease) Affective bipolar disorder Presence of Watchman left atrial appendage closure device (04/13/23) CVA (cerebral vascular accident) Restrictive lung disease Sarcoidosis BPH w urinary obs/LUTS Lower urinary tract symptoms (LUTS) Idiopathic hypersomnia with long sleep time (~2007) Obstructive sleep apnea, adult Complex sleep apnea syndrome Insomnia due to medical condition (~2007) Fatigue due to sleep pattern disturbance Iron deficiency anemia following bariatric surgery (~02/03/15) Anemia (03/29/12) Kidney stone (08/17/10) Fibromyalgia (02/03/17) Suicidal ideation (09/28/14) ASD (atrial septal defect) (03/18/13) Osteoarthropathy (02/03/17) Nocturnal hypoxemia (01/28/20) Moderate persistent asthma without complication (01/28/20) History of sarcoidosis (11/07/14) Migraine headache Benzodiazepine dependence (~2003) Facet arthropathy, lumbar Essential tremor Dysequilibrium Mixed hyperlipidemia (~07/30/13) Major depressive disorder, recurrent episode, severe Anxiety Pneumonia Paroxysmal atrial fibrillation S/P ECT (electroconvulsive therapy) H/O renal calculi Vitamin B12 deficiency (02/19/11) Psoriasis (~07/30/13) Chronic obstructive pulmonary disease (08/05/17) Narcotic dependence (09/01/16) Chronic left shoulder pain (01/20/16) Obesity with body mass index (BMI) of 30.0 to 39.9 (12/06/14) Cognitive disorder (04/24/14) Patent foramen ovale History of stroke (~06/20/12) Hypothyroidism (~11/16/10) Post traumatic stress disorder (PTSD) (~2004) Surgical History (Updated 01/10/25 @ 11:20 by Daksha Magaña RN) Hx of tonsillectomy Hx of hernia repair S/P cervical spinal fusion (2011) Hx of atrial septal defect repair (2012) S/P patent foramen ovale closure (12/21/17) S/P laparoscopic cholecystectomy (10/18/18) S/P lumbar laminectomy (10/26/17) History of Cris-en-Y gastric bypass (~2003) History of total shoulder replacement (2015) Family History Father No problems noted. Mother No problems noted. 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 yeimy/synagogue: [employer] travel history: over 6 months ago and other Smoking Status: Former smoker Tobacco: How many years used: 10 Smokeless tobacco user: other quit status: quit date established second hand exposure: Yes (Childhood) alcohol intake: former substance use type: does not use additional social history: Currently involved in a legal dispute with his son over the management of the patient's stepfather's estate. This has caused him significant levels of anxiety and frustration as he attempts to navigate this problem with his family. Smoking Status: Former smoker tobacco type: cigarettes alcohol intake frequency: holidays/special occasions only Exam Narrative Exam Narrative: General: Alert and conversant. Mild distress. Appears well nourished and well hydrated Craniofacial: No evidence of trauma. Nontender and no swelling. Eyes: PERRLA EOMI conjunctiva clear Neck: No tenderness or adenopathy. No meningismus. No JVD Lungs: Clear to auscultation with good air movement. No wheezing, rales or rhonchi. No respiratory distress Cardiac: Regular rate and rhythm with no appreciable murmur or gallop Abdomen: Soft, nontender with no distention or masses. Normal bowel sounds. No rebound or guarding Musculoskeletal: Exam of the extremities, axial spine and ribcage reveals no deformity, bony tenderness or swelling. Range of motion intact Neuro: Alert and oriented. Cranial nerves, motor, sensory and cerebellar all grossly intact. No focal deficit Skin: Warm and normal color. No rashes Psychological: Normal affect and interaction. No evidence of delusion or psychosis. Normal mood. Initial Vital Signs Initial Vital Signs: Vital Signs Temperature 98.2 F 03/22/25 17:40 Pulse Rate 83 03/22/25 17:40 Respiratory Rate 17 03/22/25 17:40 Blood Pressure 110/72 03/22/25 17:40 Pulse Oximetry 98 03/22/25 17:40 Oxygen Delivery Method Room Air 03/22/25 17:40 Course Orders Ordered: ED Orders 03/22/25 17:50 XR chest 1V Stat EKG-12 Lead Stat 03/22/25 18:15 Comprehensive Metabolic Panel Stat Lipase Stat Magnesium Stat NT-proBNP (BNP-Adult 18+) Stat PTT Partial Thromboplastin Abimael Stat Prothrombin Time INR Stat Troponin & CK Cardiac Panel Stat 03/22/25 19:05 Complete Blood Count AUTO DIFF Stat 03/22/25 21:25 Trop I [Troponin I] Stat Discontinued Medications Aspirin (Aspirin 81 Mg Chew Tab) 324 mg PO NOW ONE Stop: 03/22/25 17:51 Last Admin: 03/22/25 18:30 Dose: 324 mg Documented By: SRAVANTHI Al Hydrox/Mg Hydrox/Simethicone 30 ml/ Lidocaine HCl 15 ml 0 ml PO NOW ONE Stop: 03/22/25 18:51 Last Admin: 03/22/25 19:36 Dose: 45 ml Documented By: SRAVANTHI Vital Signs Vital signs: Vital Signs - 8 hr 03/22/25 17:40 03/22/25 18:28 03/22/25 18:30 Temperature 98.2 F Pulse Rate 83 83 Respiratory Rate 17 23 Blood Pressure 110/72 109/68 Pulse Oximetry 98 100 Oxygen Delivery Method Room Air 03/22/25 18:30 03/22/25 19:00 03/22/25 19:30 Temperature Pulse Rate 79 79 72 Respiratory Rate 18 18 16 Blood Pressure Pulse Oximetry 100 Oxygen Delivery Method 03/22/25 19:36 03/22/25 19:36 03/22/25 20:00 Temperature Pulse Rate 72 Respiratory Rate 19 Blood Pressure 115/68 120/65 Pulse Oximetry 98 Oxygen Delivery Method 03/22/25 20:00 03/22/25 20:30 03/22/25 20:30 Temperature Pulse Rate 70 68 Respiratory Rate 10 L 14 Blood Pressure 119/67 Pulse Oximetry 98 98 Oxygen Delivery Method 03/22/25 21:00 03/22/25 21:00 03/22/25 21:30 Temperature Pulse Rate 81 Respiratory Rate 14 Blood Pressure 113/61 112/59 L Pulse Oximetry 100 Oxygen Delivery Method 03/22/25 21:30 03/22/25 22:00 03/22/25 22:00 Temperature Pulse Rate 76 69 Respiratory Rate 20 19 Blood Pressure 101/54 L Pulse Oximetry 96 96 Oxygen Delivery Method Room Air Room Air MDM - Chest Pain Medical Records Data Attestation: I reviewed the patient's medical records. Lab Data Attestation: I reviewed the patient's lab results. 03/22/25 19:05 03/22/25 18:15 Labs: Lab Results 03/22/25 03/22/25 03/22/25 Range/Units 18:15 19:05 21:25 WBC 6.9 (4.5-11.0) X10^3/uL RBC 4.65 (4.5-5.9) X10^6/uL Hgb 15.1 (13.5-17.5) g/dL Hct 44.5 (41-53) % MCV 95.7 (80-100) fL MCH 32.5 (26-34) PG MCHC 33.9 (30-36) % RDW 14.4 (11.6-14.8) % Plt Count 202 (150-400) X10^3/uL Neut % (Auto) 69.2 (50-75) % Lymph % (Auto) 18.1 L (25-40) % [place] % (Auto) 11.3 (3-14) % Eos % (Auto) 0.9 L (2-4) % Baso % (Auto) 0.5 (0-2) % Neut # (Auto) 4800 (1656-7281) /uL Lymph # (Auto) 1300 (6152-1832) /uL [place] # (Auto) 800 (0-900) /uL Eos # (Auto) 100 (0-450) /uL Baso # (Auto) 0 (0-100) /uL PT 11.1 (9.4-12.5) SECONDS INR 1.0 (0.9-1.3) APTT 33 (25.1-36.5) SECONDS Sodium 140 (137-145) mmol/L Potassium 4.6 (3.4-5.1) mmol/L Chloride 103 (98-107) mmol/L Carbon Dioxide 24 (22-32) mmol/L BUN 19 (9-20) mg/dL Creatinine 1.30 H (0.66-1.25) mg/dL Estimated GFR 59 L (>60) mL/min BUN/Creatinine Ratio 14.6 (6-22) Glucose 95 (70-99) mg/dL Calcium 10.3 H (8.4-10.2) mg/dL Magnesium 2.4 H (1.6-2.3) mg/dL Total Bilirubin 1.0 (0.2-1.3) mg/dL AST 30 (17-59) IU/L ALT 10 (<50) IU/L Alkaline Phosphatase 89 (38-126) U/L Total Creatine Kinase 34 L (55-170) U/L Troponin I < 0.012 < 0.012 (0.01-0.034) ng/mL NT-Pro-B Natriuret Pep 84 (<125) pg/mL Total Protein 8.3 H (6.3-8.2) g/dL Albumin 5.3 H (3.5-5.0) g/dL Globulin 3.0 (1.7-4.1) g/dL Albumin/Globulin Ratio 1.8 (1.0-2.8) Lipase 109 (23-300) U/L Imaging Data Chest x-ray: My Impression: No acute disease. No infiltrate or edema ECG Data Attestation: I personally reviewed and interpreted this ECG as follows: (Sinus rhythm. Normal axis and intervals. No ischemic changes. Rate 81) MDM Narrative Medical decision making narrative: Patient improved with a GI cocktail. His troponin levels were negative x2. EKG and chest x-ray reassuring. This appears to be atypical or noncardiac chest pain probably gastrointestinal source with esophageal spasm or possible acid reflux symptoms. He now is asymptomatic. He was given instructions on monitoring symptoms at home and taking famotidine or omeprazole as needed. Follow up with primary care. Return to the ER if worse Discharge Plan Departure Patient Disposition: Home Clinical Impression: Atypical chest pain Instructions: Gastritis, DI for Atypical Chest Pain Activity Restrictions/Additional Instructions: Assessment: Lower substernal pain which appears to be gastrointestinal based on response to Maalox. Cardiac workup was negative including EKG, cardiac enzymes and chest x-ray Plan: Monitor symptoms and use [id number] antacids or perhaps proton pump colin such as Prilosec. Follow up with your doctor as needed. Return to the ER for Prescriptions: No Action cholecalciferol (vitamin D3) 10 mcg (400 unit) capsule 10 mcg PO DAILY bupropion HCl 300 mg tablet extended release 24 hr 300 mg PO DAILY Qty: 90 3RF lithium carbonate 450 mg tablet extended release 450 mg PO BEDTIME Qty: 90 3RF zolpidem 12.5 mg tablet,ext release multiphase 12.5 mg PO BEDTIME Qty: 30 1RF lurasidone 40 mg tablet 40 mg PO DAILY Qty: 60 1RF Rx Instructions: must administer with food (at least 350 calories) clonazepam 2 mg tablet 2 mg PO TID MDD MDD 6mg PRN (Reason: see below) Qty: 90 2RF Rx Instructions: Take one tablet (2mg) by mouth three times daily PRN dextroamphetamine-amphetamine 30 mg capsule,extended release 24hr 30 mg PO DAILY Qty: 60 0RF ketoconazole 2 % shampoo See Rx Instructions .ROUTE .COMPLEX Qty: 360 5RF Dose Instruction: APPLY BY TOPICAL ROUTE EVERY DAY NEEDED TO THE AFFECTED AREA(S), LATHER, LEAVE IN PLACE FOR 5 MINUTES, AND THEN RINSE OFF WITH WATER Rx Instructions: APPLY BY TOPICAL ROUTE EVERY DAY NEEDED TO THE AFFECTED AREA(S), LATHER, LEAVE IN PLACE FOR 5 MINUTES, AND THEN RINSE OFF WITH WATER (DME) Disabled Parking Qty: 1 0RF Rx Instructions: Patient qualifies for disabled parking as per the attached form. aspirin 81 mg tablet,delayed release (DR/EC) 81 mg PO DAILY levothyroxine 88 mcg tablet 88 mcg PO DAILY Patient Comments: Reduced dosage from 100 mcg daily magnesium 200 mg tablet 400 mg PO BEDTIME Vitamin B-12 1 tab PO DAILY carbidopa-levodopa 25-100 mg tablet 1 tab PO TID Patient Comments: 0600, 1200 and 6pm Referrals: Joanie Miller MD [Primary Care Provider, Internal Medicine] Stand Alone Forms: Patient Portal/API
[2025-03-22 18:49] LABS: NT-proBNP (BNP-Adult 18+) 84 pg/mL (<125); Troponin I < 0.012 ng/mL (0.01-0.034)
[2025-03-22 19:17] LABS: Add Manual Diff / Slide Review NO; Hematocrit 44.5 % (41-53); Hemoglobin 15.1 g/dL (13.5-17.5); Lymphocytes Absolute Auto 1300 /uL (1100-4500); Mean Corpuscular HGB Conc 33.9 % (30-36); Mean Corpuscular Hemoglobin 32.5 PG (26-34); Mean Corpuscular Volume 95.7 fL (80-100); Platelet Count 202 X10^3/uL (150-400)
[2025-03-22] MEDS: MAG HYDROX/ALUMINUM/SIMETH SUS 30 ML, LIDOCAINE VISCOUS 2% 15 ML PO (19:36)
--- NOTE | 2025-03-22 21:41 | PC.NURSE ---
Patient reports chest discomfort has improved and is a 1/10.
[2025-03-22 22:06] LABS: Troponin I < 0.012 ng/mL (0.01-0.034)
== END 2025-03-22 22:57 | disposition home or self-care (01) ==
PROVIDERS: Emergency Provider Emergency Medicine; PCP Internal Medicine
DX: R07.89 Other chest pain (principal); R06.02 Shortness of breath
CPT/HCPCS: 36415; 71045; 80053; 82550; 83690; 83735; 83880; 84484; 85025; 85610; 85730; 93005; 99284